=== PATIENT | female | born 1980 | race Caucasian/White ===

== ENCOUNTER 2020-01-25 17:11 | Emergency (ER) | payer OTHER, SELFPAY ==
[2020-01-25 17:18] VITALS: BP 152/89; PULSE 82; RESP 18; TEMP 36.6; O2SAT 99; BMI 38.0
[2020-01-25 17:22] VITALS: PULSE 80
--- NOTE | 2020-01-25 17:27 | ECG_ITS ---
Test Reason : CHEST PAIN Blood Pressure : / mmHG Vent. Rate : 072 BPM Atrial Rate : 072 BPM P-R Int : 158 ms QRS Dur : 082 ms QT Int : 400 ms P-R-T Axes : 019 048 046 degrees QTc Int : 438 ms Normal sinus rhythm Normal ECG When compared with ECG of 30-OCT-2019 14:06, Heart rate has decreased Referred By: Lucy Gutierrez Electronically Signed By:CAREN RODRIGUEZ MD
--- NOTE | 2020-01-25 17:27 | XR_ITS ---
EXAMINATION: PORTABLE CHEST 1 VIEW CLINICAL INFORMATION: cough . COMPARISON: 10/30/2019. TECHNIQUE: Portable frontal view of the chest was obtained. FINDINGS: The lungs are well expanded. No focal infiltrate, effusion, edema, or pneumothorax. Cardiac and mediastinal silhouettes are within normal limits for technique. No acute bony abnormality seen. IMPRESSION: No evidence of acute disease.
--- NOTE | 2020-01-25 17:35 | ED_ITS ---
HPI - General Adult General Chief complaint: Dyspnea Stated complaint: COUGH Time Seen by Provider: 01/25/20 17:18 Source: patient Mode of arrival: ambulatory Limitations: no limitations History of Present Illness HPI narrative: Patient comes to emergency room complaining of cough and chest pain that started this morning at 09:00. Patient states the chest pain started at 9, achy sensation, nonradiating, no dizziness or shortness of breath. 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 Later in the day, patient states she was choking with air and started coughing. Patient states that because of her asthma, once she starts coughing, it is a few hours to recover. Patient has not been using her albuterol neb machine or pop because she does not have any medication. States she has not followed up with her primary care physician in months. Onset (ago): hour(s) Treatments prior to arrival: none Related Data Previous Rx's Medication Instructions Recorded albuterol sulfate 1.25 mg INHALATION Q4-6H PRN #75 ml 01/25/20 albuterol sulfate 2 puff INHALATION Q6H PRN #18 g 01/25/20 Allergies Allergy/AdvReac Type Severity Reaction Status Date / Time hydrocodone [From VICODIN] Allergy Mild HIVES Verified 01/25/20 17:24 oxycodone [From PERCOCET] Allergy Mild HIVES Verified 01/25/20 17:24 azithromycin [AZITHROMYCIN] Allergy Unknown NAUSEA & Verified 01/25/20 17:24 VOMITING erythromycin base Allergy Unknown NAUSEA & Verified 01/25/20 17:24 [From ERYTHROCIN] VOMITING Review of Systems Review of Systems: Constitutional : No Weight loss, No Fever, No Chills, No Night Sweats, No Fatigue, No Malaise ENT/Mouth : No Hearing loss, No Ear Pain, No Nasal Congestion, No Sinus Pain, No Hoarseness, No sore throat, No Rhinorrhea, No Swallowing Difficulty Eyes: No Eye Pain, No Swelling, No Redness, No Foreign Body, No Discharge, No Vision Changes Cardiovascular : Achy chest pain in the middle of the chest, No Orthopnea, No Edema, No Palpitations Respiratory : Dry cough, No Wheezing, No Smoke Exposure Gastrointestinal : No Nausea, No Vomiting, No Diarrhea, No Constipation, No abdominal Pain, No Hematochezia, No Melena Genitourinary : no irregular bleeding, No Dysuria, No Urinary Frequency, No Hematuria, No Urinary Incontinence, No Urgency, No Flank Pain, No Urinary Flow Changes, No Hesitancy Musculoskeletal : No joint pain, No Myalgias, No Joint Swelling Skin : No Skin Lesions, No rash Neuro : No Weakness, No Numbness, No Paresthesias, No Loss of Consciousness, No Dizziness, No Headache Psych : No Anxiety/Panic, No Depression, No SI/HI/AH/VH, No Social Issues, Heme/Lymph: No Bruising, No Bleeding,No Lymphadenopathy Endocrine : No Polyuria, No Polydipsia, No Temperature Intolerance [facility] Past Medical History Medical History Asthma Fibromyalgia Lupus Social History Social History Alcohol intake: never Smoked in Last 30 Days: No Use of substances other than those prescribed or required for medical reasons: No Advance Directives: No Advance Directives Information Provided: No Physical Exam Vital Signs: Vital Signs: Vital Signs Temp Pulse Resp BP Pulse Ox 01/25/20 17:18 97.8 F 82 18 152/89 H 99 Body Mass Index 38.0 Appearance: Alert. Oriented X3. No acute distress. Eyes: Pupils equal, round and reactive to light. ENT: Pharynx normal. Neck: Normal inspection. Neck supple. No lymph nodes noted. No crepitus CVS: Normal heart rate and rhythm. Pulses normal. Normal S1 and S2 Respiratory: No respiratory distress. Breath sounds normal. No Wheezing. No rales , actively coughing Abdomen: Soft and nontender. No rigidity. No distention. good BS x4 Skin: Skin warm and dry. Normal skin color. Normal skin turgor. Extremities: No lower extremity edema. No lower extremity edema. No Lacerations. No Rash Neuro: Oriented X 3. No motor deficit. No sensory deficit. Moving all extermities. No slurred speech. Course Reevaluation(s) Reevaluation #1: Patient complaining of ongoing mild substernal discomfort, otherwise doing well, patient wheezing. Medical Decision Making MDM Narrative Medical decision making narrative: I discussed with the patient that she will be sent home with a prescription for albuterol since she ran out of it, chest pain likely musculoskeletal. Patient will be given 1 dose of oral potassium prior to discharge. EKG findings: Sinus rhythm, heart rate 72, QTC 438, no ST segment depressions or elevations, normal T-waves Lab Data Result diagrams: 01/25/20 17:41 01/25/20 17:41 Labs: Lab Results 01/25/20 01/25/20 01/25/20 Range/Units 17:41 17:41 17:41 WBC 8.5 (4.8-10.8) X10*3/uL RBC 4.28 (4.20-5.50) X10*6/uL Hgb 12.9 (12.0-16.0) g/dl Hct 37.9 (37-47) % MCV 88.6 (80-98) fL MCH 30.1 (27.0-33.0) pg MCHC 34.0 (31.0-35.0) g/dl RDW 13.8 (11.0-16.0) % Plt Count 274 (160-400) X10*3/uL MPV 9.8 (9.4-12.3) fL Immature Gran % (Auto) 0.2 (0.0-0.4) % Neut % (Auto) 61.7 (45-73) % Lymph % (Auto) 30.5 (20-40) % Carbon % (Auto) 4.8 (2-11) % Eos % (Auto) 2.6 (0-4) % Baso % (Auto) 0.2 (0-2) % Lymph # (Auto) 2.6 (1.2-4.9) X10*3/uL Carbon # (Auto) 0.4 (0.1-1.2) X10*3/uL Eos # (Auto) 0.2 (0.0-0.4) X10*3/uL Baso # (Auto) 0.0 (0.0-0.2) X10*3/uL Abs Immat Gran (auto) 0.02 (0.00-0.03) X10*3/uL Absolute Neuts (auto) 5.2 (2.0-8.3) X10*3/uL Absolute Nucleated RBC 0.000 (0.0-0.012) X10*3/uL Nucleated RBC % (auto) 0.0 (0.0-0.2) /100WBC Sodium 139 (135-145) mmol/L Potassium 3.2 L (3.3-5.1) mmol/l Chloride 106 (96-108) mmol/L Carbon Dioxide 25 (22-29) mmol/L Anion Gap 11 L (12-20) BUN 12 (9-16) mg/dL Creatinine 0.72 (0.5-1.4) mg/dL Estim Creat Clear Calc 117.8 Estimated GFR > 60 Random Glucose 156 H (60-115) mg/dL Calcium 8.1 L (8.4-10.2) mg/dL Troponin I High Sens < 3.5 (<3.5-17.0) ng/L Discharge Plan Discharge Clinical Impression: Atypical chest pain, Acute hypokalemia, Cough Patient Disposition: Home, Self-Care Instructions: Acute Cough (ED) Additional Instructions: Please follow-up with your primary care physician tomorrow. If you have any worsening or new symptoms, please return to the emergency room or call 911 Prescriptions: New albuterol sulfate 90 mcg/actuation HFA aerosol inhaler 2 puff inhalation Q6H PRN (Reason: shortness of breath or wheezing) Qty: 18 RF: 0 albuterol sulfate 1.25 mg/3 mL solution for nebulization 1.25 mg inhalation Q4-6H PRN (Reason: shortness of breath or wheezing) Qty: 75 RF: 0 Stand Alone Forms: Work/School Release
[2020-01-25 17:45] LABS: MANUAL DIFF FLAG NO
[2020-01-25 17:46] LABS: Basophils Percent Auto 0.2 % (0-2); Eosinophils Absolute Auto 0.2 X10*3/uL (0.0-0.4); Eosinophils Percent Auto 2.6 % (0-4); Hematocrit 37.9 % (37-47); Hemoglobin 12.9 g/dl (12.0-16.0); Imm Gran Abs Auto 0.02 X10*3/uL (0.00-0.03); Imm Gran Pct Auto 0.2 % (0.0-0.4); Lymphocytes Absolute Auto 2.6 X10*3/uL (1.2-4.9); Lymphocytes Percent Auto 30.5 % (20-40); Mean Corpuscular Hemoglobin 30.1 pg (27.0-33.0); Mean Corpuscular Volume 88.6 fL (80-98); Mean Platelet Volume 9.8 fL (9.4-12.3); Monocytes Absolute Auto 0.4 X10*3/uL (0.1-1.2); Monocytes Percent Auto 4.8 % (2-11); Neutrophils Absolute Auto 5.2 X10*3/uL (2.0-8.3); Neutrophils Percent Auto 61.7 % (45-73); Platelet Count 274 X10*3/uL (160-400); Red Blood Count 4.28 X10*6/uL (4.20-5.50); Red Cell Distribution Width 13.8 % (11.0-16.0); White Blood Count 8.5 X10*3/uL (4.8-10.8)
[2020-01-25 18:05] LABS: Anion Gap 11 (12-20); Blood Urea Nitrogen 12 mg/dL (9-16); Calcium 8.1 mg/dL (8.4-10.2); Carbon Dioxide 25 mmol/L (22-29); Chloride 106 mmol/L (96-108); Creatinine Clr Calc Pharmacy 117.8; Estimated Glomerular Filt Rate > 60; Glucose Random 156 mg/dL (60-115); Potassium 3.2 mmol/l (3.3-5.1); Sodium 139 mmol/L (135-145)
[2020-01-25 18:15] LABS: Troponin-I High Sensitivity < 3.5 ng/L (<3.5-17.0)
== END 2020-01-25 19:33 | disposition home or self-care (01) ==
PROVIDERS: Emergency Provider Emergency Medicine; PCP Nurse Practitioner Adult Health
DX: R07.89 Other chest pain (principal); E87.6 Hypokalemia; R05 Cough
CPT/HCPCS: 36415; 71045; 80048; 84484; 85025; 93005; 99283; 99284

== ENCOUNTER 2020-02-15 10:08 | Emergency (ER) | payer OTHER, SELFPAY ==
[2020-02-15 10:18] VITALS: BP 162/85; PULSE 75; RESP 18; TEMP 36.8; O2SAT 99; BMI 38.9
--- NOTE | 2020-02-15 10:26 | XR_ITS ---
EXAMINATION: XR CHEST CLINICAL INFORMATION: Cough with chest pain COMPARISON: January 25, 2020 TECHNIQUE: 2 views of the chest were obtained. FINDINGS: No significant abnormality is noted involving the heart, lungs, mediastinum, bony thorax or soft tissues. XR/XR chest 2V IMPRESSION: No acute disease.
--- NOTE | 2020-02-15 10:27 | ECG_ITS ---
Test Reason : SOB Blood Pressure : / mmHG Vent. Rate : 079 BPM Atrial Rate : 079 BPM P-R Int : 172 ms QRS Dur : 078 ms QT Int : 384 ms P-R-T Axes : 032 036 038 degrees QTc Int : 440 ms Normal sinus rhythm Normal ECG When compared with ECG of 25-JAN-2020 17:46, No significant change was found Referred By: Fatmata Lyles Electronically Signed By:CAREN RODRIGUEZ MD
--- NOTE | 2020-02-15 10:32 | ED_ITS ---
HPI - Asthma General Chief Complaint: Dyspnea Stated Complaint: asthmsa Time Seen by Provider: 02/15/20 10:22 Source: patient Mode of arrival: ambulatory History of Present Illness HPI Narrative: 39-year-old female with a past medical history of fibromyalgia, asthma, lupus presenting to the ED complaining of worsening dry cough, SOB, and substernal chest discomfort x2 days. Reports works at [employer] and has been inhaling a lot of dust, which exacerbates her asthma. Has been using inhalers at home with minimal relief. Denies fever, chills, LE edema, calf pain, recent travel, sick contacts, contact with TAZ ROCHA complaint: asthma attack and shortness of breath Related Data Previous Rx's Medication Instructions Recorded albuterol sulfate 1.25 mg INHALATION Q4-6H PRN #75 ml 01/25/20 albuterol sulfate 2 puff INHALATION Q6H PRN #18 g 01/25/20 prednisone 40 mg PO DAILY 5 Days #10 tab 02/15/20 Allergies Allergy/AdvReac Type Severity Reaction Status Date / Time hydrocodone [From VICODIN] Allergy Mild HIVES Verified 01/25/20 17:24 oxycodone [From PERCOCET] Allergy Mild HIVES Verified 01/25/20 17:24 azithromycin [AZITHROMYCIN] Allergy Unknown NAUSEA & Verified 01/25/20 17:24 VOMITING erythromycin base Allergy Unknown NAUSEA & Verified 01/25/20 17:24 [From ERYTHROCIN] VOMITING Review of Systems Review of Systems: Constitutional: No Weight loss, No Fever, No Chills ENT/Mouth: No Ear Pain, No Nasal Congestion, No sore throat, No Rhinorrhea, No Swallowing Difficulty Cardiovascular: + Chest Pain,+ SOB Respiratory: + Cough, No Sputum, No Wheezing Gastrointestinal: No Nausea, No Vomiting, No Diarrhea, No Constipation, No Abdominal pain Musculoskeletal: No joint pain, No Myalgias, No Joint Swelling Skin: No Skin Lesions, No rash Yes all other systems are reviewed and are negative [facility] Past Medical History Attestation statement: The following information was validated with the patient. Medical History (Updated 02/15/20 @ 11:41 by KAYE Otoole) Asthma Fibromyalgia Lupus Surgical History (Updated 02/15/20 @ 10:20 by Indira Woodward) H/O: hysterectomy Social History Social History Alcohol intake: never Smoking Status: Current every day smoker Use of substances other than those prescribed or required for medical reasons: No Advance Directives: No Advance Directives Information Provided: No Physical Exam Vital Signs: Vital Signs: Last Vital Signs Temp 98.1 F 02/15/20 11:31 Pulse 82 02/15/20 11:31 Resp 18 02/15/20 11:31 BP 146/79 H 02/15/20 11:31 Pulse Ox 99 02/15/20 10:18 Body Mass Index 38.9 Const: General: cooperative and healthy appearing Orientation/consciousness: patient oriented x3 Limitations: no limitations HENMT: Head: Yes normal to inspection Ears: hearing grossly normal bilaterally General nose exam: Normal external nose present Face and sinus: Yes normal facial exam Eyes: General: appearance normal, both eyes and all related structures EOM: EOMs intact bilaterally Neck: Neck: Yes normal visual inspection and Yes no meningeal signs Resp: Effort & Inspection: normal respiratory effort Auscultation: no rales, no rhonchi, no wheezes and diminished lung sounds (Bibasilar) Cardio: Rate: regular rate Heart sounds: S1 normal heart sound present and S2 normal heart sound present GI: Inspection: Yes normal to inspection Palpation (GI): Soft to palpation Skin: Rashes: no rashes Wounds: no wounds Neuro: General: patient oriented x3 and no meningeal signs Gait exam (Neuro): Normal gait present Extrem: Other: No LE edema or calf tenderness General: Yes normal to inspection Course Course Course Narrative: -1140--on re-evaluation patient with better air movement after DuoNeb. Additional DuoNeb and IV Solu-Medrol ordered -labs at patient's baseline, glucose 225, no AG, Mag 1.5 Patient with lungs CTA, satting 99-100% on room air, no respiratory distress, plan to D/C with PCP follow-up MDM - Asthma MDM Narrative Medical decision making narrative: 39-year-old female with a past medical history of fibromyalgia, asthma, lupus presenting to the ED complaining of worsening dry cough, SOB, and substernal chest discomfort x2 days. On exam VSS, NAD/well-appearing, lungs with diminished sounds bibasilarly, no LE edema or calf tenderness. Concern for asthma exacerbation vs pneumonia vs bronchitis or viral syndrome/COVID-19. Lower concern for ACS/PE Patient would not like to be swabbed for COVID-19 Plan: EKG, labs, CXR, DuoNeb, reassess Lab Data Result diagrams: 02/15/20 12:04 02/15/20 12:03 Labs: Lab Results 02/15/20 02/15/20 02/15/20 Range/Units 12:03 12:03 12:03 WBC (4.8-10.8) X10*3/uL RBC (4.20-5.50) X10*6/uL Hgb (12.0-16.0) g/dl Hct (37-47) % MCV (80-98) fL MCH (27.0-33.0) pg MCHC (31.0-35.0) g/dl RDW (11.0-16.0) % Plt Count (160-400) X10*3/uL MPV (9.4-12.3) fL Immature Gran % (Auto) (0.0-0.4) % Neut % (Auto) (45-73) % Lymph % (Auto) (20-40) % Marin % (Auto) (2-11) % Eos % (Auto) (0-4) % Baso % (Auto) (0-2) % Lymph # (Auto) (1.2-4.9) X10*3/uL Marin # (Auto) (0.1-1.2) X10*3/uL Eos # (Auto) (0.0-0.4) X10*3/uL Baso # (Auto) (0.0-0.2) X10*3/uL Abs Immat Gran (auto) (0.00-0.03) X10*3/uL Absolute Neuts (auto) (2.0-8.3) X10*3/uL Absolute Nucleated RBC (0.0-0.012) X10*3/uL Nucleated RBC % (auto) (0.0-0.2) /100WBC Hold Blue Top SEE NOTE Sodium 137 (135-145) mmol/L Potassium 3.7 (3.3-5.1) mmol/l Chloride 106 (96-108) mmol/L Carbon Dioxide 27 (22-29) mmol/L Anion Gap 8 L (12-20) BUN 8 L (9-16) mg/dL Creatinine 0.69 (0.5-1.4) mg/dL Estim Creat Clear Calc 124.5 Estimated GFR > 60 Random Glucose 225 H D (60-115) mg/dL Calcium 7.9 L (8.4-10.2) mg/dL Magnesium (1.6-2.6) mg/dL Total Bilirubin < 0.2 (0.0-1.0) mg/dL Direct Bilirubin < 0.2 (0.0-0.5) mg/dL AST 26 (5-31) U/L ALT 36 H (0-31) U/L Alkaline Phosphatase 122 H (39-117) U/L Troponin I High Sens < 3.5 (<3.5-17.0) ng/L Total Protein 5.9 L (6.5-8.0) g/dL Albumin 3.2 L (3.5-5.0) g/dL 02/15/20 02/15/20 Range/Units 12:03 12:04 WBC 9.6 (4.8-10.8) X10*3/uL RBC 4.27 (4.20-5.50) X10*6/uL Hgb 12.9 (12.0-16.0) g/dl Hct 38.3 (37-47) % MCV 89.7 (80-98) fL MCH 30.2 (27.0-33.0) pg MCHC 33.7 (31.0-35.0) g/dl RDW 13.7 (11.0-16.0) % Plt Count 243 (160-400) X10*3/uL MPV 9.7 (9.4-12.3) fL Immature Gran % (Auto) 0.4 (0.0-0.4) % Neut % (Auto) 66.2 (45-73) % Lymph % (Auto) 26.2 (20-40) % Marin % (Auto) 4.9 (2-11) % Eos % (Auto) 2.2 (0-4) % Baso % (Auto) 0.1 (0-2) % Lymph # (Auto) 2.5 (1.2-4.9) X10*3/uL Marin # (Auto) 0.5 (0.1-1.2) X10*3/uL Eos # (Auto) 0.2 (0.0-0.4) X10*3/uL Baso # (Auto) 0.0 (0.0-0.2) X10*3/uL Abs Immat Gran (auto) 0.04 H (0.00-0.03) X10*3/uL Absolute Neuts (auto) 6.4 (2.0-8.3) X10*3/uL Absolute Nucleated RBC 0.000 (0.0-0.012) X10*3/uL Nucleated RBC % (auto) 0.0 (0.0-0.2) /100WBC Hold Blue Top Sodium (135-145) mmol/L Potassium (3.3-5.1) mmol/l Chloride (96-108) mmol/L Carbon Dioxide (22-29) mmol/L Anion Gap (12-20) BUN (9-16) mg/dL Creatinine (0.5-1.4) mg/dL Estim Creat Clear Calc Estimated GFR Random Glucose (60-115) mg/dL Calcium (8.4-10.2) mg/dL Magnesium 1.5 L (1.6-2.6) mg/dL Total Bilirubin (0.0-1.0) mg/dL Direct Bilirubin (0.0-0.5) mg/dL AST (5-31) U/L ALT (0-31) U/L Alkaline Phosphatase (39-117) U/L Troponin I High Sens (<3.5-17.0) ng/L Total Protein (6.5-8.0) g/dL Albumin (3.5-5.0) g/dL ECG Data Attestation: I personally reviewed and interpreted this ECG as follows: ECG interpretation date: 02/15/20 Interpretation: Normal sinus rhythm. Rate of 79. No ischemic changes Discharge Plan Discharge Clinical Impression: Asthma with exacerbation Patient Disposition: Home, Self-Care Instructions: Asthma (ED) Additional Instructions: Your blood work and chest x-ray were reassuring today in ED Make sure you are using your inhalers at home, and nebulizer machine In additions are taking prednisone as prescribed If her symptoms persist or worsen, you have fever, persistent cough, worsening SOB or chest pain return to the ED Follow-up with her doctor Prescriptions: New prednisone 20 mg tablet 40 mg PO DAILY 5 Days Qty: 10 RF: 0 No Action albuterol sulfate 90 mcg/actuation HFA aerosol inhaler 2 puff inhalation Q6H PRN (Reason: shortness of breath or wheezing) Qty: 18 RF: 0 albuterol sulfate 1.25 mg/3 mL solution for nebulization 1.25 mg inhalation Q4-6H PRN (Reason: shortness of breath or wheezing) Qty: 75 RF: 0 Referrals: Thu Gallardo, D[employer] PAINTER [Primary Care Provider] - 2 days
[2020-02-15] MEDS: Albuterol/Iprat 2.5/0.5MG 3 ML AMPUL.NEB INHALE ×2 (10:53→12:52)
[2020-02-15 11:31] VITALS: BP 146/79; PULSE 82; RESP 18; TEMP 36.7
[2020-02-15] MEDS: methylPREDNISolone Sod Succ/PF 125 MG/2 ML VIAL IVPUSH (12:07)
[2020-02-15 12:09] LABS: MANUAL DIFF FLAG NO
[2020-02-15 12:10] LABS: Basophils Percent Auto 0.1 % (0-2); Eosinophils Absolute Auto 0.2 X10*3/uL (0.0-0.4); Eosinophils Percent Auto 2.2 % (0-4); Hematocrit 38.3 % (37-47); Hemoglobin 12.9 g/dl (12.0-16.0); Imm Gran Abs Auto 0.04 X10*3/uL (0.00-0.03); Imm Gran Pct Auto 0.4 % (0.0-0.4); Lymphocytes Absolute Auto 2.5 X10*3/uL (1.2-4.9); Lymphocytes Percent Auto 26.2 % (20-40); Mean Corpuscular HGB Conc 33.7 g/dl (31.0-35.0); Mean Corpuscular Hemoglobin 30.2 pg (27.0-33.0); Mean Corpuscular Volume 89.7 fL (80-98); Mean Platelet Volume 9.7 fL (9.4-12.3); Monocytes Absolute Auto 0.5 X10*3/uL (0.1-1.2); Monocytes Percent Auto 4.9 % (2-11); Neutrophils Absolute Auto 6.4 X10*3/uL (2.0-8.3); Neutrophils Percent Auto 66.2 % (45-73); Platelet Count 243 X10*3/uL (160-400); Red Blood Count 4.27 X10*6/uL (4.20-5.50); Red Cell Distribution Width 13.7 % (11.0-16.0); White Blood Count 9.6 X10*3/uL (4.8-10.8)
[2020-02-15 12:33] LABS: Magnesium 1.5 mg/dL (1.6-2.6)
[2020-02-15 12:38] LABS: Troponin-I High Sensitivity < 3.5 ng/L (<3.5-17.0)
[2020-02-15 12:42] LABS: Alanine Aminotransferase 36 U/L (0-31); Albumin Level 3.2 g/dL (3.5-5.0); Alkaline Phosphatase 122 U/L (39-117); Anion Gap 8 (12-20); Aspartate Amino Transferase 26 U/L (5-31); Bilirubin Direct < 0.2 mg/dL (0.0-0.5); Bilirubin Total < 0.2 mg/dL (0.0-1.0); Blood Urea Nitrogen 8 mg/dL (9-16); Calcium 7.9 mg/dL (8.4-10.2); Carbon Dioxide 27 mmol/L (22-29); Chloride 106 mmol/L (96-108); Creatinine Clr Calc Pharmacy 124.5; Estimated Glomerular Filt Rate > 60; Glucose Random 225 mg/dL (60-115); Potassium 3.7 mmol/l (3.3-5.1); Sodium 137 mmol/L (135-145); Total Protein 5.9 g/dL (6.5-8.0)
--- NOTE | 2020-02-15 12:42 | PC.NURSE ---
respiratory was called for updraft
== END 2020-02-15 13:34 | disposition home or self-care (01) ==
PROVIDERS: Physician Assistant; Emergency Provider Emergency Medicine; PCP Nurse Practitioner Adult Health
DX: J45.901 Unspecified asthma with (acute) exacerbation (principal); R06.00 Dyspnea, unspecified; M79.10 Myalgia, unspecified site; R05 Cough; Z79.899 Other long term (current) drug therapy
CPT/HCPCS: 36415; 71046; 80048; 80076; 83735; 84484; 85025; 93005; 94640; 96374; 99284; 99285; J2930

== ENCOUNTER 2020-03-10 04:32 | Emergency (ER) | payer OTHER, SELFPAY ==
[2020-03-10 04:34] VITALS: BP 194/102; PULSE 101; RESP 22; TEMP 36.2; O2SAT 98; BMI 38.9
[2020-03-10 04:40] VITALS: BP 153/89
[2020-03-10 05:01] VITALS: BP 139/88; PULSE 87; RESP 18; O2SAT 100
--- NOTE | 2020-03-10 05:46 | XR_ITS ---
EXAMINATION: XR CHEST CLINICAL INFORMATION: Cough COMPARISON: 02/15/2020 TECHNIQUE: 2 views of the chest were obtained. FINDINGS: The lungs are clear with no focal consolidation. No evidence of pneumothorax, pulmonary edema, or pleural effusions. The cardiomediastinal silhouette is unremarkable. No acute osseous findings. XR/XR chest 2V IMPRESSION: No acute cardiopulmonary findings.
--- NOTE | 2020-03-10 05:47 | ED.ASTHMA ---
HPI - Asthma General Chief Complaint: Asthma Stated Complaint: asthma Time Seen by Provider: 03/10/20 05:46 Source: patient Mode of arrival: ambulatory Limitations: no limitations History of Present Illness HPI Narrative: This is a 39-year-old female with history of asthma and states that she was working at her job yesterday and was exposed to quite a bit dust which then she states resulted in her having worsening shortness of breath overnight with limited relief of after using her inhaler. Otherwise, she denies fevers, chills, GI symptoms, chest pain / palpitations. Related Data Previous Rx's Medication Instructions Recorded albuterol sulfate 1.25 mg INHALATION Q4-6H PRN #75 ml 01/25/20 albuterol sulfate 2 puff INHALATION Q6H PRN #18 g 01/25/20 prednisone 40 mg PO DAILY 5 Days #10 tab 02/15/20 prednisone 40 mg PO DAILY 4 Days #8 tab 03/10/20 Allergies Allergy/AdvReac Type Severity Reaction Status Date / Time hydrocodone [From VICODIN] Allergy Mild HIVES Verified 01/25/20 17:24 oxycodone [From PERCOCET] Allergy Mild HIVES Verified 01/25/20 17:24 azithromycin [AZITHROMYCIN] Allergy Unknown NAUSEA & Verified 01/25/20 17:24 VOMITING erythromycin base Allergy Unknown NAUSEA & Verified 01/25/20 17:24 [From ERYTHROCIN] VOMITING Review of Systems Review of Systems: Pertinent positives and negatives as stated in HPI 10 point review systems otherwise negative. PMFSH Past Medical History Source: nursing notes reviewed Medical History Asthma Fibromyalgia HTN (hypertension) Lupus Surgical History H/O: hysterectomy Social History Social History Alcohol intake: never Smoking Status: Current every day smoker Smoked in Last 30 Days: Yes Use of substances other than those prescribed or required for medical reasons: Yes Substance Use Type: Marijuana Advance Directives: No Advance Directives Information Provided: No Physical Exam Vital Signs: Vital Signs: Last Vital Signs Temp 97.2 F 03/10/20 04:34 Pulse 79 03/10/20 06:15 Resp 18 03/10/20 05:01 BP 139/88 03/10/20 05:01 Pulse Ox 100 03/10/20 05:01 Body Mass Index 38.9 VITAL SIGNS: Reviewed. GENERAL: Well developed, well nourished, in no acute distress. HEAD: Normocephalic/atraumatic, EYES: PERRLA, EOMI intact without pain, no nystagmus/pallor/icterus noted EARS: Ext canals without abnormality, TMs non-bulging and non-erythematous NOSE: Nares patent bilateral OROPHARYNX: no oral lesions noted, posterior pharynx clear and non-erythematous without noted tonsillar enlargement/erythema/exudates NECK: Supple, no adenopathy LUNGS: Very mild wheeze on expiration bilaterally, and no accessory muscle use. SpO2<100> CARDIOVASCULAR: Regular rate and rhythm without noted murmurs, no JVD or lower extremity edema. ABDOMEN: Soft, non-tender, non-distended with bowel sounds. No rigidity. No guarding. No palpable masses or hernias noted MUSCULOSKELETAL: No tenderness, deformities, or effusions noted on gross inspection. EXTREMITIES: No cyanosis, clubbing or edema. SKIN: Inspection of the skin reveals no rashes, ulcerations, jaundice, pallor, or petechiae. NEUROLOGIC: Alert and oriented x 4. Strength and sensation to light touch were grossly intact x 4. Course Course Course Narrative: This is a 39-year-old female with history and clinical presentation consistent with likely mild asthma exacerbation and review of chest x-ray is without acute findings and patient has had good symptom control with receiving a nebulized treatment as well as oral prednisone. All results and findings were discussed with her bedside and she will be discharged home with a short course of steroids and instructions to continue using her rescue inhaler. In addition, recommended patient should use a particulate mask at her work. Discharge Plan Discharge Clinical Impression: Asthma with acute exacerbation Qualifiers: Asthma severity: mild Asthma persistence: unspecified Qualified Code(s): J45.901 - Unspecified asthma with (acute) exacerbation Patient Disposition: Home, Self-Care Instructions: Asthma (ED) Additional Instructions: The patient and/or family acknowledge understanding of results (as applicable), diagnosis, treatment plan, need for follow up, and symptoms that should prompt a return to the emergency room. Prescriptions: New prednisone 20 mg tablet 40 mg PO DAILY 4 Days Qty: 8 RF: 0 No Action albuterol sulfate 90 mcg/actuation HFA aerosol inhaler 2 puff inhalation Q6H PRN (Reason: shortness of breath or wheezing) Qty: 18 RF: 0 albuterol sulfate 1.25 mg/3 mL solution for nebulization 1.25 mg inhalation Q4-6H PRN (Reason: shortness of breath or wheezing) Qty: 75 RF: 0 prednisone 20 mg tablet 40 mg PO DAILY 5 Days Qty: 10 RF: 0
[2020-03-10] MEDS: predniSONE 20 MG TABLET 40 MG PO (06:02)
[2020-03-10] MEDS: Albuterol Sulfate (0.083%) 2.5 MG/3 ML VIAL.NEB INHALE (06:04)
[2020-03-10 06:15] VITALS: PULSE 79; O2SAT 100
--- NOTE | 2020-03-10 07:03 | PC.NURSE ---
nad, states she's ready to go home and feels much better
--- NOTE | 2020-03-10 07:38 | PC.NURSE ---
hr 88, spo2 98 ra
== END 2020-03-10 07:37 | disposition home or self-care (01) ==
PROVIDERS: Emergency Provider Student in an Organized Health Care Education/Training Program; PCP Nurse Practitioner Adult Health
DX: J45.901 Unspecified asthma with (acute) exacerbation (principal); I10 Essential (primary) hypertension; F17.200 Nicotine dependence, unspecified, uncomplicated; Z79.899 Other long term (current) drug therapy
CPT/HCPCS: 71046; 94640; 99284

== ENCOUNTER 2020-05-19 15:02 | Emergency (ER) | payer OTHER, SELFPAY ==
[2020-05-19 15:47] VITALS: BP 160/93; PULSE 86; RESP 18; TEMP 36.9; O2SAT 99; BMI 38.6
--- NOTE | 2020-05-19 16:38 | ED.GENADULT ---
HPI - General Adult General Chief complaint: Upper Respiratory Symptoms Stated complaint: covid symptoms Time Seen by Provider: 05/19/20 15:51 Source: patient Mode of arrival: ambulatory Limitations: no limitations History of Present Illness HPI narrative: 39-year-old female who presents the emergency department for evaluation cough, shortness of breath and fatigue. The patient states she has been sick for 3 days. She states that she has a cough which is occasionally productive. She states the cough is gotten progressively worse. She has felt hot and cold at home but did not take her temperature. She states that she is having right-sided sharp chest pain which is worse with coughing and breathing. She feels short of breath but denies dyspnea on exertion. She has had several episodes of loose diarrheal stool x2 days. She states that she has had a change in her perception of taste but not smell. The patient does have a history asthma and states that she has had to use her inhaler more frequently over the past 2-3 days. 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 Related Data Previous Rx's Medication Instructions Recorded albuterol sulfate 1.25 mg INHALATION Q4-6H PRN #75 ml 01/25/20 albuterol sulfate 2 puff INHALATION Q6H PRN #18 g 01/25/20 prednisone 40 mg PO DAILY 5 Days #10 tab 02/15/20 prednisone 40 mg PO DAILY 4 Days #8 tab 03/10/20 doxycycline hyclate 100 mg PO Q12H 10 Days #20 tab 05/19/20 prednisone 60 mg PO DAILY 5 Days #15 tab 05/19/20 Allergies Allergy/AdvReac Type Severity Reaction Status Date / Time hydrocodone [From VICODIN] Allergy Mild HIVES Verified 01/25/20 17:24 oxycodone [From PERCOCET] Allergy Mild HIVES Verified 01/25/20 17:24 azithromycin [AZITHROMYCIN] Allergy Unknown NAUSEA & Verified 01/25/20 17:24 VOMITING erythromycin base Allergy Unknown NAUSEA & Verified 01/25/20 17:24 [From ERYTHROCIN] VOMITING Review of Systems Review of Systems: Yes all other systems are reviewed and are negative Neurologic: Reports Abnormal speech present REPLACED BY [facility] Past Medical History REPLACED BY [facility] Narrative: Past medical history consistent with asthma, fibromyalgia, lupus, sleep apnea, migraines, PTSD, anxiety, depression, bipolar disorder. The patient states that she works at [employer]. She does smoke cigarettes, she rarely drinks alcohol, she denies drug use. Medical History Asthma Fibromyalgia HTN (hypertension) Lupus Surgical History H/O: hysterectomy Social History Social History Alcohol intake: never Smoking Status: Current every day smoker Substance Use Type: Marijuana Advance Directives: No Advance Directives Information Provided: No Physical Exam Vital Signs: Vital Signs: Last Vital Signs Temp 98.5 F 05/19/20 15:47 Pulse 86 05/19/20 15:47 Resp 18 05/19/20 15:47 BP 160/93 H 05/19/20 15:47 Pulse Ox 99 05/19/20 15:47 Body Mass Index 38.6 Const: General: cooperative and healthy appearing Orientation/consciousness: oriented to person and oriented to place Limitations: no limitations HENMT: Head: Yes normal to inspection, Yes normocephalic and Yes atraumatic Ears: external ears normal General nose exam: Normal external nose present Face and sinus: Yes normal facial exam Mouth: Normal oral and palatal mucosa present Throat: Yes posterior oropharynx normal Eyes: Periorbital: periorbital findings normal Eyelids: Yes eyelids normal Conjunctivae: conjunctivae normal Sclerae: sclerae normal Corneas: corneas normal Pupils: Equal, round and reactive pupils present Direct Ophthalmoscopy: normal light reflex Neck: Neck: Yes full ROM, Yes no lymphadenopathy, Yes no meningeal signs, Yes trachea midline and Yes supple Chest: Chest palpation & inspection: normal inspection of the chest and normal palpation of entire chest wall Resp: Effort & Inspection: normal respiratory effort and able to speak in complete sentences Auscultation: clear to auscultation bilaterally Cardio: Rate: regular rate Rhythm: regular rhythm Heart sounds: S1 normal heart sound present, S2 normal heart sound present and no murmurs GI: Inspection: Yes normal to inspection Palpation (GI): Soft to palpation, nontender, no guarding, not rigid and No hepatosplenomegaly present : General: Yes no CVA tenderness Back/Spine/Pelvis: Back: no CVA tenderness Cervical Spine: normal cervical lordosis Thoracic/Lumbar Spine: thoracic and lumbar spine normal to inspection Skin: Lesions: no lesions Rashes: no rashes Wounds: no wounds Neuro: General: oriented to person, oriented to place and no meningeal signs Cranial nerves: Yes CN's II-XII intact bilaterally and Yes Equal, round and reactive pupils present Cognition (Neuro): normal cognition Speech: Abnormal speech present Motor exam (neuro): 5/5 motor strength present throughout Extrem: General: Yes normal to inspection and Yes full ROM Psych: Appearance: well kempt Mental Status: mental status grossly normal Speech and movement: Normal speech and movement present Affect: normal affect Attitude: cooperative Thought process: Normal thought process present Thought content: Normal thought content present Course Course Course Narrative: 39-year-old female with a history of asthma, cigarette use, multiple other medical conditions who presents the emergency department for evaluation of viral-like illness x3 days with cough, shortness of breath, pleuritic chest pain, diarrhea, subjective fever and change in her sense of taste. Patient's physical examination did reveal slightly elevated blood pressure 160/93 but a normal respiratory rate pulse and O2 saturation of 99% on room air. Lung exam is clear. The patient is at increased risk for bacterial URI verses COVID URI. I did order a rapid COVID test on the patient. 1728: The patient's rapid COVID test was negative. The patient's presentation is consistent with acute bronchitis, given her asthma and smoking history, I believe that she will benefit from an antibiotic. She started on doxycycline 100 mg twice a day for 10 days and given her 1st dose here in the emergency department. She was also started on prednisone 60 mg once a day for 5 days and given her 1st dose here in the emergency department. The patient states that she needs a refill of her albuterol inhaler and this will be prescribed for her as well. She was given verbal and printed instructions and discharged home. Medical Decision Making Lab Data Labs: Lab Results 05/19/20 Range/Units 16:29 COVID-19 ([facility]) Negative (Negative) COVID-19 Clin Com See Note Discharge Plan Discharge Clinical Impression: Acute bronchitis, Acute asthma exacerbation Patient Disposition: Home, Self-Care Instructions: Acute Bronchitis (ED) Additional Instructions: Your COVID-19 test was negative. Your presentation is consistent with bronchitis which is causing her asthma to flare up. You were treated with doxycycline 100 mg orally and prednisone 60 mg orally in the emergency department. Take doxycycline 100 mg twice a day for 10 days. This is a strong antibiotic and should treat bacterial bronchitis and bacterial pneumonia. Take prednisone 60 mg once a day for 4 more days. Do not take other anti-inflammatory medications such as ibuprofen, Motrin, Advil, Aleve, naproxen while you are taking prednisone. Take Tylenol (acetaminophen) 500 mg pills, 2 pills every 4 to 6 hours as needed for pain or fever. Follow-up with your doctor in 2 days. Please return to the emergency department if your symptoms get worse or if you develop any symptoms that are concerning to you. Prescriptions: New prednisone 20 mg tablet 60 mg PO DAILY 5 Days Qty: 15 RF: 0 doxycycline hyclate 100 mg tablet 100 mg PO Q12H 10 Days Qty: 20 RF: 0 No Action prednisone 20 mg tablet 40 mg PO DAILY 4 Days Qty: 8 RF: 0 albuterol sulfate 90 mcg/actuation HFA aerosol inhaler 2 puff inhalation Q6H PRN (Reason: shortness of breath or wheezing) Qty: 18 RF: 0 albuterol sulfate 1.25 mg/3 mL solution for nebulization 1.25 mg inhalation Q4-6H PRN (Reason: shortness of breath or wheezing) Qty: 75 RF: 0 prednisone 20 mg tablet 40 mg PO DAILY 5 Days Qty: 10 RF: 0
[2020-05-19 17:04] LABS: COVID-19 Test Negative (Negative); IDNOW Serial# 9DD0AD1C
[2020-05-19] MEDS: predniSONE 20 MG TABLET 60 MG PO (17:35)
== END 2020-05-19 17:41 | disposition home or self-care (01) ==
PROVIDERS: Emergency Provider Emergency Medicine Emergency Medical Services; PCP Nurse Practitioner Adult Health
DX: R05 Cough (principal); J45.901 Unspecified asthma with (acute) exacerbation; R06.02 Shortness of breath; J20.8 Acute bronchitis due to other specified organisms; Z20.822 Contact with and (suspected) exposure to COVID-19; Z79.899 Other long term (current) drug therapy
CPT/HCPCS: 36415; 87635; 99283

== ENCOUNTER 2020-07-20 10:26 | Emergency (ER) | payer OTHER, SELFPAY ==
--- NOTE | ~2020-07-20 | XR_ITS ---
EXAMINATION: XR CHEST CLINICAL INFORMATION: Dyspnea COMPARISON: Chest radiographs 03/10/2020, 02/15/2020 TECHNIQUE: Portable upright AP view of the chest was obtained. FINDINGS: The lungs are clear. The vascularity is normal. There is no airspace consolidation or effusion. The heart is normal in size. The hilar and mediastinal contours are unremarkable. There is minor calcific tendinosis again seen adjacent to right humeral head. No acute bony abnormality. XR/XR chest 1V IMPRESSION: Lungs clear.
[2020-07-20 10:42] VITALS: BP 180/92; PULSE 90; RESP 18; TEMP 36.8; O2SAT 96; BMI 38.0
[2020-07-20 11:05] LABS: Glucose Urine UA 250 MG/DL (NEG); Leukocyte Esterase Urine NEG (NEG); Nitrite Urine NEG (NEG); PH 6.5 (5.0-8.0); Specific Gravity - Urine 1.025 (1.005-1.025); Urine Blood NEG (NEG); Urine Ketones NEG (NEG); Urine Protein 1+ MG/DL (NEG-TRACE)
[2020-07-20 11:09] LABS: UPreg QC Valid YES; Urine Pregnancy NEGATIVE (NEGATIVE)
[2020-07-20 11:10] LABS: Appearance Urine CLEAR; Color Urine YELLOW
[2020-07-20 11:22] LABS: RBC Urine 0 /HPF (0); Squamous Epithelial Cell Urine 1+ /LPF; WBC Urine 0-2 /HPF (0-4)
[2020-07-20 12:00] VITALS: BP 138/94; PULSE 108; RESP 24; TEMP 37.4; O2SAT 96
[2020-07-20] MEDS: methylPREDNISolone Sod Succ 125 MG/2 ML VIAL IVPUSH (12:20)
[2020-07-20] MEDS: 0.9 % Sodium Chloride 1,000 ML 999 ML IVCONT (12:21)
[2020-07-20 12:22] LABS: MANUAL DIFF FLAG NO
[2020-07-20 12:24] LABS: Basophils Percent Auto 0.3 % (0-2); Eosinophils Absolute Auto 0.2 X10*3/uL (0.0-0.4); Eosinophils Percent Auto 2.4 % (0-4); Hematocrit 41.6 % (37-47); Hemoglobin 14.1 g/dl (12.0-16.0); Imm Gran Abs Auto 0.04 X10*3/uL (0.00-0.03); Imm Gran Pct Auto 0.4 % (0.0-0.4); Lymphocytes Absolute Auto 2.3 X10*3/uL (1.2-4.9); Lymphocytes Percent Auto 23.2 % (20-40); Mean Corpuscular HGB Conc 33.9 g/dl (31.0-35.0); Mean Corpuscular Hemoglobin 30.3 pg (27.0-33.0); Mean Corpuscular Volume 89.3 fL (80-98); Mean Platelet Volume 9.6 fL (9.4-12.3); Monocytes Absolute Auto 0.6 X10*3/uL (0.1-1.2); Monocytes Percent Auto 5.7 % (2-11); Neutrophils Absolute Auto 6.8 X10*3/uL (2.0-8.3); Platelet Count 261 X10*3/uL (160-400); Red Blood Count 4.66 X10*6/uL (4.20-5.50); Red Cell Distribution Width 13.9 % (11.0-16.0)
[2020-07-20 12:31] LABS: INTERNATIONAL NORM RATIO 1.1 (0.9-1.1); Prothrombin Time 12.5 SEC (10.8-13.0)
[2020-07-20 12:36] LABS: D Dimer < 200 NG/ML
[2020-07-20 12:47] LABS: Lactic Acid 1.5 mmol/L (0.5-2.0)
[2020-07-20 12:54] LABS: Alanine Aminotransferase 41 U/L (0-31); Albumin Level 3.4 g/dL (3.5-5.0); Alkaline Phosphatase 126 U/L (39-117); Aspartate Amino Transferase 32 U/L (5-31); Bilirubin Direct < 0.2 mg/dL (0.0-0.5); Bilirubin Total 0.3 mg/dL (0.0-1.0); Magnesium 1.8 mg/dL (1.6-2.6); Total Protein 5.9 g/dL (6.5-8.0)
[2020-07-20 12:58] LABS: Alanine Aminotransferase 41 U/L (0-31); Albumin Level 3.4 g/dL (3.5-5.0); Alkaline Phosphatase 124 U/L (39-117); Anion Gap 12 (12-20); Aspartate Amino Transferase 34 U/L (5-31); B Type Natriuretic Peptide < 10 pg/mL (<100); Bilirubin Total 0.3 mg/dL (0.0-1.0); Blood Urea Nitrogen 13 mg/dL (9-16); C Reactive Protein 3.52 mg/dL (< or = 0.50); Calcium 8.8 mg/dL (8.4-10.2); Carbon Dioxide 25 mmol/L (22-29); Chloride 104 mmol/L (96-108); Creatinine Clr Calc Pharmacy 119.4; Estimated Glomerular Filt Rate > 60; Glucose Random 256 mg/dL (60-115); Lactate Dehydrogenase 220 U/L (122-220); Potassium 3.8 mmol/L (3.3-5.1); Sodium 137 mmol/L (135-145); Total Protein 5.9 g/dL (6.5-8.0); Troponin-I High Sensitivity < 3.5 ng/L (<3.5-17.0)
[2020-07-20 13:11] LABS: Ferritin 91 ng/mL (10-122); HCG Quantitative < 2 mIU/mL
[2020-07-20 13:18] LABS: Procalcitonin 0.06 ng/mL
--- NOTE | 2020-07-20 13:41 | ED_ITS ---
HPI - Asthma General Chief Complaint: Dyspnea Stated Complaint: ?pneumonia Time Seen by Provider: 07/20/20 11:20 Source: patient and EMS Mode of arrival: EMS Limitations: no limitations History of Present Illness HPI Narrative: 39-year-old female with a past medical history of asthma, lung disease, sleep apnea, lupus, hypertension, vertigo, anxiety reaction, bipolar 1 disorder, PTSD, depression, chronic constipation, nephrolithiasis and fibromyalgia presenting to the ED with complaints of a dry cough with shortness of breath, dyspnea on exertion and chest tightness/discomfort over the past few days worse today. Reports it feels the same when she had a pneumonia infection. She has been using her albuterol inhaler without any symptomatic relief. Reports she does not have a nebulizer machine. She reports she was seen here on 05/19/2020 and diagnosed with bronchitis and given doxycycline and steroids and t gracyy provided symptomatic relief at that time. She denies recent travel or sick contacts. Denies any fevers, chills, dizziness, lightheadedness, change in vision, nausea/vomiting, neck pain/stiffness, palpitations, back pain, abdominal pain, diarrhea, black or bloody stools, hematuria, dysuria or any other symptoms complaints or concerns at this time. MD complaint: asthma attack , shortness of breath and wheezing Onset (ago): day(s) Severity: moderate and worse than usual Context: none known Associated symptoms: dry cough and chest pain Asthma History: history of frequent attacks and history of prior ED visit Treatments Prior to Arrival: inhaled bronchodilator Related Data Current Asthma Therapy: inhaled bronchodilator Previous Rx's Medication Instructions Recorded albuterol sulfate 1.25 mg INHALATION Q4-6H PRN #75 ml 01/25/20 albuterol sulfate 2 puff INHALATION Q6H PRN #18 g 01/25/20 prednisone 40 mg PO DAILY 5 Days #10 tab 02/15/20 prednisone 40 mg PO DAILY 4 Days #8 tab 03/10/20 doxycycline hyclate 100 mg PO Q12H 10 Days #20 tab 05/19/20 prednisone 60 mg PO DAILY 5 Days #15 tab 05/19/20 acetaminophen [Tylenol Extra 1,000 mg PO QID PRN #14 tab 07/20/20 Strength] albuterol sulfate 0.63 mg INHALATION QID PRN #75 ml 07/20/20 albuterol sulfate 1 inh INHALATION QID PRN #8.5 g 07/20/20 blood sugar diagnostic [FreeStyle #100 ea 07/20/20 Lite Strips] blood-glucose meter [FreeStyle #1 ea 07/20/20 Baker Lite] doxycycline monohydrate 100 mg PO BID 10 Days #20 cap 07/20/20 ibuprofen 800 mg PO Q8H PRN #14 tab 07/20/20 lancets [FreeStyle Lancets] #100 ea 07/20/20 metformin 500 mg PO BID 30 Days #60 tab 07/20/20 prednisone 40 mg PO DAILY 5 Days #10 tab 07/20/20 Allergies Allergy/AdvReac Type Severity Reaction Status Date / Time hydrocodone [From VICODIN] Allergy Mild HIVES Verified 01/25/20 17:24 oxycodone [From PERCOCET] Allergy Mild HIVES Verified 01/25/20 17:24 azithromycin [AZITHROMYCIN] Allergy Unknown NAUSEA & Verified 01/25/20 17:24 VOMITING erythromycin base Allergy Unknown NAUSEA & Verified 01/25/20 17:24 [From ERYTHROCIN] VOMITING Review of Systems Review of Systems: Constitutional : denies med noncompliance, no history of PE or DVT, denies recent travel, No Fever, No Chills ENT/Mouth : No Hoarseness, No sore throat, No Rhinorrhea Eyes: No Redness, No Discharge, No Vision Changes Cardiovascular : + Chest tightness/Pain, + SOB, + Dyspnea on Exertion, No Edema, no pleurisy, Respiratory : + Cough, No Sputum, no stridor, no hemoptysis, Gastrointestinal : No Nausea, No Vomiting, No Diarrhea, No abdominal Pain Genitourinary : No Dysuria, No Hematuria Musculoskeletal : No joint pain, No Myalgias Extremities: no extremity swelling /pain Skin : No rash, no itching, no swelling Neuro : No Weakness, No Numbness, No Headache Psych : No anxiety, depression Heme/Lymph: No Bruising, No Bleeding Endocrine : No Polyuria, No Polydipsia Yes all other systems are reviewed and are negative [facility] Past Medical History Attestation statement: The following information was validated with the patient. Medical History Asthma Fibromyalgia HTN (hypertension) Lupus Surgical History H/O: hysterectomy Social History Social History Alcohol intake: never Smoking Status: Current every day smoker Substance Use Type: Marijuana Advance Directives: No Advance Directives Information Provided: No Physical Exam Vital Signs: Vital Signs: Last Vital Signs Temp 99.3 F 07/20/20 12:00 Pulse 108 H 07/20/20 12:00 Resp 24 H 07/20/20 12:00 BP 138/94 H 07/20/20 12:00 Pulse Ox 96 07/20/20 12:00 Body Mass Index 38.0 vital signs have been reviewed as normal and appeared to be correct. Blood pressure normal. Heart rate normal. Respiration rate normal. Temperature normal. Oxygen saturation normal. Appearance: Alert. Oriented X3. No acute distress. Head: Normal external exam. Normocephalic. Atraumatic. Eyes: PERRLA. EOMI. Conjunctiva and sclera normal. Eyelids normal. ENT: EAC normal. TM's Normal. Pharynx normal. Uvula midline. Moist mucous membranes. No trismus noted. No drooling noted. No muffled voice noted. Neck: Normal inspection. Neck supple. FROM. No adenopathy. Thyroid Normal. No meningeal signs. No neck mass noted. CVS: Normal heart rate and rhythm. Heart sound normal. No murmurs noted. Pulses normal throughout. Respiratory: No respiratory distress. Painless inspiration. Breath sounds normal. No wheezes/rales/rhonchi noted. Chest nontender. No accessory muscle usage noted or decreased air movement noted. Abdomen: Soft and nontender. Bowel sounds normal in all 4 quadrants. No distention noted. No organomegaly noted. No visible injury noted. Back: No CVA tenderness. Full range of motion noted. Skin: Skin warm and dry. Normal skin color. Normal skin turgor. No rashes/lesions/lacerations noted. Extremities: No lower extremity edema. No calf tenderness noted bilaterally. Extremities exhibit normal range of motion. Extremities nontender. Neuro: Oriented X 3. No motor deficit. No sensory deficit. Reflexes normal. Course Course Course Narrative: 39-year-old female presenting to the ED for asthma exacerbation with chest discomfort. On exam patient is alert and oriented x3. Not in any acute distress. Mild decreased breath sounds otherwise lungs clear to auscultation no wheezes/rales or rhonchi noted. CV RRR. Abdomen is soft and nontender. No lower extremity pitting edema or calf tenderness noted. Labs obtained and patient was noted to have mild elevation in her LFTs and glucose level. Her glucose was 256 and since 2019 it appears that the patient has been having elevated glucose level possibly on diagnosed diabetes therefore I added an A1c level 7.6 therefore will start the patient on 500 mg of metformin b.i.d. and instructed patient to follow-up with her PCP for further evaluation and treatment and management of new onset of diabetes. UA revealed 250 of glucose otherwise no evidence of UTI. UHCG negative for . COVID/RSV/flu pending at this time. Chest x-ray negative for any acute processes. Will DC home with antibiotics/steroids for her asthma exacerbation along with metformin for her new onset of diabetes instructions follow-up with primary care provider and to return if any new or worsening symptoms. Patient understands agrees with this plan. [facility] - Asthma Medical Records Attestation: I reviewed the patient's medical records. Lab Data Attestation: I reviewed the patient's lab results. Result diagrams: 07/20/20 12:15 07/20/20 12:15 Labs: Lab Results 07/20/20 07/20/20 07/20/20 Range/Units 10:52 10:52 12:15 WBC 10.0 (4.8-10.8) X10*3/uL RBC 4.66 (4.20-5.50) X10*6/uL Hgb 14.1 (12.0-16.0) g/dl Hct 41.6 (37-47) % MCV 89.3 (80-98) fL MCH 30.3 (27.0-33.0) pg MCHC 33.9 (31.0-35.0) g/dl RDW 13.9 (11.0-16.0) % Plt Count 261 (160-400) X10*3/uL MPV 9.6 (9.4-12.3) fL Immature Gran % (Auto) 0.4 (0.0-0.4) % Neut % (Auto) 68.0 (45-73) % Lymph % (Auto) 23.2 (20-40) % Sutton % (Auto) 5.7 (2-11) % Eos % (Auto) 2.4 (0-4) % Baso % (Auto) 0.3 (0-2) % Lymph # (Auto) 2.3 (1.2-4.9) X10*3/uL Sutton # (Auto) 0.6 (0.1-1.2) X10*3/uL Eos # (Auto) 0.2 (0.0-0.4) X10*3/uL Baso # (Auto) 0.0 (0.0-0.2) X10*3/uL Abs Immat Gran (auto) 0.04 H (0.00-0.03) X10*3/uL Absolute Neuts (auto) 6.8 (2.0-8.3) X10*3/uL Absolute Nucleated RBC 0.000 (0.0-0.012) X10*3/uL Nucleated RBC % (auto) 0.0 (0.0-0.2) /100WBC PT (10.8-13.0) SEC INR (0.9-1.1) D-Dimer NG/ML Sodium (135-145) mmol/L Potassium (3.3-5.1) mmol/L Chloride (96-108) mmol/L Carbon Dioxide (22-29) mmol/L Anion Gap (12-20) BUN (9-16) mg/dL Creatinine (0.5-1.4) mg/dL Estim Creat Clear Calc Estimated GFR Random Glucose (60-115) mg/dL Estimat Average Glucose mg/dL Hemoglobin A1c % % Lactic Acid (0.5-2.0) mmol/L Calcium (8.4-10.2) mg/dL Magnesium (1.6-2.6) mg/dL Ferritin (10-122) ng/mL Total Bilirubin (0.0-1.0) mg/dL Direct Bilirubin (0.0-0.5) mg/dL AST (5-31) U/L ALT (0-31) U/L Alkaline Phosphatase (39-117) U/L Lactate Dehydrogenase (122-220) U/L Troponin I High Sens (<3.5-17.0) ng/L C-Reactive Protein (< or = 0.50) mg/dL B-Natriuretic Peptide (<100) pg/mL Total Protein (6.5-8.0) g/dL Albumin (3.5-5.0) g/dL Procalcitonin ng/mL Beta HCG, Quant mIU/mL Urine Color YELLOW Urine Appearance CLEAR Urine pH 6.5 (5.0-8.0) Ur Specific [place] 1.025 (1.005-1.025) Urine Protein 1+ H (NEG-TRACE) MG/DL Urine Glucose (UA) 250 H (NEG) MG/DL Urine Ketones NEG (NEG) MG/DL Urine Blood NEG (NEG) Urine Nitrite NEG (NEG) Ur Leukocyte Esterase NEG (NEG) Urine RBC 0 (0) /HPF Urine WBC 0-2 (0-4) /HPF Ur Squamous Epith Cells 1+ /LPF Urine Bacteria NONE /LPF Urine Test NEGATIVE (NEGATIVE) 07/20/20 07/20/20 07/20/20 Range/Units 12:15 12:15 12:15 WBC (4.8-10.8) X10*3/uL RBC (4.20-5.50) X10*6/uL Hgb (12.0-16.0) g/dl Hct (37-47) % MCV (80-98) fL MCH (27.0-33.0) pg MCHC (31.0-35.0) g/dl RDW (11.0-16.0) % Plt Count (160-400) X10*3/uL MPV (9.4-12.3) fL Immature Gran % (Auto) (0.0-0.4) % Neut % (Auto) (45-73) % Lymph % (Auto) (20-40) % Sutton % (Auto) (2-11) % Eos % (Auto) (0-4) % Baso % (Auto) (0-2) % Lymph # (Auto) (1.2-4.9) X10*3/uL Sutton # (Auto) (0.1-1.2) X10*3/uL Eos # (Auto) (0.0-0.4) X10*3/uL Baso # (Auto) (0.0-0.2) X10*3/uL Abs Immat Gran (auto) (0.00-0.03) X10*3/uL Absolute Neuts (auto) (2.0-8.3) X10*3/uL Absolute Nucleated RBC (0.0-0.012) X10*3/uL Nucleated RBC % (auto) (0.0-0.2) /100WBC PT 12.5 (10.8-13.0) SEC INR 1.1 (0.9-1.1) D-Dimer < 200 NG/ML Sodium (135-145) mmol/L Potassium (3.3-5.1) mmol/L Chloride (96-108) mmol/L Carbon Dioxide (22-29) mmol/L Anion Gap (12-20) BUN (9-16) mg/dL Creatinine (0.5-1.4) mg/dL Estim Creat Clear Calc Estimated GFR Random Glucose (60-115) mg/dL Estimat Average Glucose mg/dL Hemoglobin A1c % % Lactic Acid (0.5-2.0) mmol/L Calcium (8.4-10.2) mg/dL Magnesium 1.8 (1.6-2.6) mg/dL Ferritin (10-122) ng/mL Total Bilirubin 0.3 (0.0-1.0) mg/dL Direct Bilirubin < 0.2 (0.0-0.5) mg/dL AST 32 H (5-31) U/L ALT 41 H (0-31) U/L Alkaline Phosphatase 126 H (39-117) U/L Lactate Dehydrogenase (122-220) U/L Troponin I High Sens < 3.5 (<3.5-17.0) ng/L C-Reactive Protein (< or = 0.50) mg/dL B-Natriuretic Peptide < 10 (<100) pg/mL Total Protein 5.9 L (6.5-8.0) g/dL Albumin 3.4 L (3.5-5.0) g/dL Procalcitonin ng/mL Beta HCG, Quant mIU/mL Urine Color Urine Appearance Urine pH (5.0-8.0) Ur Specific [place] (1.005-1.025) Urine Protein (NEG-TRACE) MG/DL Urine Glucose (UA) (NEG) MG/DL Urine Ketones (NEG) MG/DL Urine Blood (NEG) Urine Nitrite (NEG) Ur Leukocyte Esterase (NEG) Urine RBC (0) /HPF Urine WBC (0-4) /HPF Ur Squamous Epith Cells /LPF Urine Bacteria /LPF Urine Test (NEGATIVE) 07/20/20 07/20/20 07/20/20 Range/Units 12:15 12:15 12:15 WBC (4.8-10.8) X10*3/uL RBC (4.20-5.50) X10*6/uL Hgb (12.0-16.0) g/dl Hct (37-47) % MCV (80-98) fL MCH (27.0-33.0) pg MCHC (31.0-35.0) g/dl RDW (11.0-16.0) % Plt Count (160-400) X10*3/uL MPV (9.4-12.3) fL Immature Gran % (Auto) (0.0-0.4) % Neut % (Auto) (45-73) % Lymph % (Auto) (20-40) % Sutton % (Auto) (2-11) % Eos % (Auto) (0-4) % Baso % (Auto) (0-2) % Lymph # (Auto) (1.2-4.9) X10*3/uL [place] # (Auto) (0.1-1.2) X10*3/uL Eos # (Auto) (0.0-0.4) X10*3/uL Baso # (Auto) (0.0-0.2) X10*3/uL Abs Immat Gran (auto) (0.00-0.03) X10*3/uL Absolute Neuts (auto) (2.0-8.3) X10*3/uL Absolute Nucleated RBC (0.0-0.012) X10*3/uL Nucleated RBC % (auto) (0.0-0.2) /100WBC PT (10.8-13.0) SEC INR (0.9-1.1) D-Dimer NG/ML Sodium 137 (135-145) mmol/L Potassium 3.8 (3.3-5.1) mmol/L Chloride 104 (96-108) mmol/L Carbon Dioxide 25 (22-29) mmol/L Anion Gap 12 (12-20) BUN 13 D (9-16) mg/dL Creatinine 0.71 (0.5-1.4) mg/dL Estim Creat Clear Calc 119.4 Estimated GFR > 60 Random Glucose 256 H (60-115) mg/dL Estimat Average Glucose mg/dL Hemoglobin A1c % % Lactic Acid 1.5 (0.5-2.0) mmol/L Calcium 8.8 D (8.4-10.2) mg/dL Magnesium (1.6-2.6) mg/dL Ferritin 91 (10-122) ng/mL Total Bilirubin 0.3 (0.0-1.0) mg/dL Direct Bilirubin (0.0-0.5) mg/dL AST 34 H (5-31) U/L ALT 41 H (0-31) U/L Alkaline Phosphatase 124 H (39-117) U/L Lactate Dehydrogenase 220 (122-220) U/L Troponin I High Sens (<3.5-17.0) ng/L C-Reactive Protein 3.52 H (< or = 0.50) mg/dL B-Natriuretic Peptide (<100) pg/mL Total Protein 5.9 L (6.5-8.0) g/dL Albumin 3.4 L (3.5-5.0) g/dL Procalcitonin 0.06 ng/mL Beta HCG, Quant < 2 mIU/mL Urine Color Urine Appearance Urine pH (5.0-8.0) Ur Specific [place] (1.005-1.025) Urine Protein (NEG-TRACE) MG/DL Urine Glucose (UA) (NEG) MG/DL Urine Ketones (NEG) MG/DL Urine Blood (NEG) Urine Nitrite (NEG) Ur Leukocyte Esterase (NEG) Urine RBC (0) /HPF Urine WBC (0-4) /HPF Ur Squamous Epith Cells /LPF Urine Bacteria /LPF Urine Test (NEGATIVE) 07/20/20 Range/Units 12:15 WBC (4.8-10.8) X10*3/uL RBC (4.20-5.50) X10*6/uL Hgb (12.0-16.0) g/dl Hct (37-47) % MCV (80-98) fL MCH (27.0-33.0) pg MCHC (31.0-35.0) g/dl RDW (11.0-16.0) % Plt Count (160-400) X10*3/uL MPV (9.4-12.3) fL Immature Gran % (Auto) (0.0-0.4) % Neut % (Auto) (45-73) % Lymph % (Auto) (20-40) % Sutton % (Auto) (2-11) % Eos % (Auto) (0-4) % Baso % (Auto) (0-2) % Lymph # (Auto) (1.2-4.9) X10*3/uL Sutton # (Auto) (0.1-1.2) X10*3/uL Eos # (Auto) (0.0-0.4) X10*3/uL Baso # (Auto) (0.0-0.2) X10*3/uL Abs Immat Gran (auto) (0.00-0.03) X10*3/uL Absolute Neuts (auto) (2.0-8.3) X10*3/uL Absolute Nucleated RBC (0.0-0.012) X10*3/uL Nucleated RBC % (auto) (0.0-0.2) /100WBC PT (10.8-13.0) SEC INR (0.9-1.1) D-Dimer NG/ML Sodium (135-145) mmol/L Potassium (3.3-5.1) mmol/L Chloride (96-108) mmol/L Carbon Dioxide (22-29) mmol/L Anion Gap (12-20) BUN (9-16) mg/dL Creatinine (0.5-1.4) mg/dL Estim Creat Clear Calc Estimated GFR Random Glucose (60-115) mg/dL Estimat Average Glucose 171 mg/dL Hemoglobin A1c % 7.6 % Lactic Acid (0.5-2.0) mmol/L Calcium (8.4-10.2) mg/dL Magnesium (1.6-2.6) mg/dL Ferritin (10-122) ng/mL Total Bilirubin (0.0-1.0) mg/dL Direct Bilirubin (0.0-0.5) mg/dL AST (5-31) U/L ALT (0-31) U/L Alkaline Phosphatase (39-117) U/L Lactate Dehydrogenase (122-220) U/L Troponin I High Sens (<3.5-17.0) ng/L C-Reactive Protein (< or = 0.50) mg/dL B-Natriuretic Peptide (<100) pg/mL Total Protein (6.5-8.0) g/dL Albumin (3.5-5.0) g/dL Procalcitonin ng/mL Beta HCG, Quant mIU/mL Urine Color Urine Appearance Urine pH (5.0-8.0) Ur Specific [place] (1.005-1.025) Urine Protein (NEG-TRACE) MG/DL Urine Glucose (UA) (NEG) MG/DL Urine Ketones (NEG) MG/DL Urine Blood (NEG) Urine Nitrite (NEG) Ur Leukocyte Esterase (NEG) Urine RBC (0) /HPF Urine WBC (0-4) /HPF Ur Squamous Epith Cells /LPF Urine Bacteria /LPF Urine Test (NEGATIVE) Imaging Data Chest x-ray: Attestation: I personally reviewed and interpreted this imaging study as follows: Radiologist's impression: FINDINGS: The lungs are clear. The vascularity is normal. There is no airspace consolidation or effusion. The heart is normal in size. The hilar and mediastinal contours are unremarkable. There is minor calcific tendinosis again seen adjacent to right humeral head. No acute bony abnormality. XR/XR chest 1V IMPRESSION: Lungs clear. Critical Care Time Critical Care Time Critical Care Time: Yes Total Critical Care Time: 60 Attestation: I personally attest to this time spent taking care of the patient Discharge Plan Discharge Clinical Impression: Asthma with exacerbation, Acute bronchitis with bronchospasm, New onset type 2 diabetes mellitus, Elevated LFTs Patient Disposition: Home, Self-Care Instructions: Type 2 Diabetes in Adults: New Diagnosis (ED), Acute Bronchitis (ED), How to Use a Nebulizer (ED), Bronchospasm (ED), Wheezing (ED), What to Do if Your Blood Sugar is Low (ED), How to Check your Blood Sugar (ED) Additional Instructions: I have noticed today since 2019 you have had elevated glucose levels therefore I obtain a A1c level and it was 7.6 today therefore we are starting you on metformin for newly diagnosed type 2 diabetes. You need to check her blood glucose in the morning and at bedtime and before meals. You also had mild e levation in your liver function test. You should have a follow-up with her primary care provider this week for further evaluation treatment on this. I am starting you on steroids which could increase her blood glucose levels therefore you need to monitor diet and a glucose levels. Return if any new or worsening symptoms and follow up with her primary care provider. Prescriptions: New metformin 500 mg tablet 500 mg PO BID 30 Days Qty: 60 RF: 0 albuterol sulfate 0.63 mg/3 mL solution for nebulization 0.63 mg inhalation QID PRN (Reason: shortness of breath or wheezing) Qty: 75 RF: 0 albuterol sulfate 90 mcg/actuation HFA aerosol inhaler 1 inh inhalation QID PRN (Reason: shortness of breath or wheezing) Qty: 8.5 RF: 0 ibuprofen 800 mg tablet 800 mg PO Q8H PRN (Reason: pain) Qty: 14 RF: 0 acetaminophen [Tylenol Extra Strength] 500 mg tablet 1,000 mg PO QID PRN (Reason: fever or pain) Qty: 14 RF: 0 doxycycline monohydrate 100 mg capsule 100 mg PO BID 10 Days Qty: 20 RF: 0 prednisone 20 mg tablet 40 mg PO DAILY 5 Days Qty: 10 RF: 0 (DME) blood-glucose meter [FreeStyle Baker Lite] Kit See Rx Instructions .ROUTE .MEDSUPPLY Qty: 1 RF: 0 (DME) FreeStyle Lite Strips Strip See Rx Instructions .ROUTE .MEDSUPPLY Qty: 100 RF: 0 (DME) lancets [FreeStyle Lancets] 28 gauge misc See Rx Instructions .ROUTE .MEDSUPPLY Qty: 100 RF: 0 No Action prednisone 20 mg tablet 40 mg PO DAILY 4 Days Qty: 8 RF: 0 albuterol sulfate 90 mcg/actuation HFA aerosol inhaler 2 puff inhalation Q6H PRN (Reason: shortness of breath or wheezing) Qty: 18 RF: 0 albuterol sulfate 1.25 mg/3 mL solution for nebulization 1.25 mg inhalation Q4-6H PRN (Reason: shortness of breath or wheezing) Qty: 75 RF: 0 prednisone 20 mg tablet 40 mg PO DAILY 5 Days Qty: 10 RF: 0 prednisone 20 mg tablet 60 mg PO DAILY 5 Days Qty: 15 RF: 0 doxycycline hyclate 100 mg tablet 100 mg PO Q12H 10 Days Qty: 20 RF: 0 Print Language: Qatari
[2020-07-20 13:55] LABS: Estimated Average Glucose 171 mg/dL; Hemoglobin A1c % 7.6 %
[2020-07-20 14:26] LABS: Influenza A PCR NEGATIVE (Negative); Influenza B PCR NEGATIVE (Negative); Resp Syncy Virus RNA Qual PCR NEGATIVE (Negative); SARS COV2 PCR INHOUSE NEGATIVE (Negative)
== END 2020-07-20 14:45 | disposition home or self-care (01) ==
PROVIDERS: Physician Assistant Medical; Emergency Provider Emergency Medicine; PCP Nurse Practitioner Adult Health
DX: R07.89 Other chest pain (principal); J45.901 Unspecified asthma with (acute) exacerbation; J20.9 Acute bronchitis, unspecified; E11.9 Type 2 diabetes mellitus without complications; R79.89 Other specified abnormal findings of blood chemistry; Z20.822 Contact with and (suspected) exposure to COVID-19; I10 Essential (primary) hypertension; M32.9 Systemic lupus erythematosus, unspecified; F17.210 Nicotine dependence, cigarettes, uncomplicated; F12.90 Cannabis use, unspecified, uncomplicated
CPT/HCPCS: 0241U; 36415; 71045; 80053; 80076; 81001; 81003; 81025; 82248; 82728; 83036; 83605; 83615; 83735; 83880; 84145; 84484; 84702; 85025; 85379; 85610; 86140; 87040; 96361; 96374; 99284; J2930

== ENCOUNTER 2020-08-18 19:21 | Emergency (ER) | payer OTHER, SELFPAY ==
--- NOTE | ~2020-08-18 | CT_ITS ---
EXAMINATION: CT ABDOMEN AND PELVIS WITHOUT CONTRAST CLINICAL INFORMATION: Right flank pain with history of kidney stones COMPARISON: CT abdomen pelvis 06/08/2019 TECHNIQUE: Multidetector volumetric imaging was performed from the superior aspect of the liver through the pubic symphysis. Sagittal and coronal reformatted images were obtained on the technologist's workstation. This CT examination was performed using dose optimization techniques as appropriate, variously including the following: *Automated exposure control *Adjustment of mA and/or kV according to patient size (this includes techniques or standardized protocols for targeted exams where dose is matched to indication/reason for exam; i.e. extremities or head) *Use of iterative reconstruction technique DLP: 742 mGy-cm FINDINGS: LUNG BASES: The visualized lung bases are unremarkable. A small right anterior preparacardiac and posterior paracardiac lymph node is present. LIVER, GALLBLADDER, AND BILIARY TREE: The liver is enlarged measuring over 21 cm in length and demonstrates decreased attenuation consistent with hepatic no focal liver mass or bile duct dilatation is seen. The gallbladder is contracted but otherwise unremarkable with no evidence of radiopaque gallstones, gallbladder wall thickening, or obvious pericholecystic inflammatory changes. PANCREAS: Unremarkable. SPLEEN: Unremarkable. ADRENAL GLANDS: Unremarkable. KIDNEYS AND URETERS: The kidneys are normal in size, shape, and attenuation. Again seen is a nonobstructing right lower pole renal calculus. This measures 6 mm in size and 817 Hounsfield units. It is 17 cm from the posterior axillary line. No hydronephrosis, hydroureter, or left-sided calculi seen. No perinephric stranding. BLADDER: Empty and poorly evaluated. No stones are seen. GASTROINTESTINAL TRACT: The small and large bowel are unremarkable. Some colonic diverticula are present without diverticulitis. The appendix is unremarkable. ABDOMINAL WALL: No significant hernia is appreciated. There has been prior abdominal wall hernia repair. LYMPH NODES: Small retroperitoneal lymph nodes are present but no gross lymphadenopathy seen. Findings are unchanged when compared to the prior study. The largest is left para-aortic measuring 1.3 x 0.9 x 2.0 cm (503:296) VASCULAR: Unremarkable. PELVIC VISCERA: Surgically absent. Previously seen left adnexal cyst has dramatically decreased in size and is now normal. OSSEOUS STRUCTURES: Unremarkable. CT/CT abdomen pelvis wo con IMPRESSION: 1. A cause for the patient's acute right flank pain has not been found. 2. Again noted nonobstructing right lower pole renal calculus 3. Enlarged fatty liver. 4. Other incidental findings as described above
--- NOTE | ~2020-08-18 | XR_ITS ---
EXAMINATION: XR CHEST CLINICAL INFORMATION: Shortness of breath COMPARISON: 07/20/2020 TECHNIQUE: Frontal view of the chest was obtained. FINDINGS: No significant abnormality is noted involving the heart, lungs, mediastinum, bony thorax or soft tissues. XR/XR chest 1V IMPRESSION: Unremarkable examination.
[2020-08-18 19:53] VITALS: BP 169/84; PULSE 97; RESP 18; TEMP 36.6; O2SAT 100; BMI 38.0
[2020-08-18 20:30] VITALS: O2SAT 97
[2020-08-18 21:20] LABS: COVID-19 Test Negative (Negative); IDNOW Serial# 9DD0AD1C
--- NOTE | 2020-08-18 21:43 | ED_ITS ---
HPI - Abdominal Pain General Chief Complaint: Upper Respiratory Symptoms Stated Complaint: diff. breathing Time Seen by Provider: 08/18/20 20:06 Source: patient Mode of arrival: ambulatory Limitations: no limitations History of Present Illness HPI narrative: Patient's history of kidney stone complaining of pain in right flank area for last 3 days radiating to the right front of the abdomen no urinary complaints no hematuria also having cough body aches. No fever no chills Related Data Previous Rx's Medication Instructions Recorded albuterol sulfate 1.25 mg INHALATION Q4-6H PRN #75 ml 01/25/20 albuterol sulfate 2 puff INHALATION Q6H PRN #18 g 01/25/20 prednisone 40 mg PO DAILY 5 Days #10 tab 02/15/20 prednisone 40 mg PO DAILY 4 Days #8 tab 03/10/20 doxycycline hyclate 100 mg PO Q12H 10 Days #20 tab 05/19/20 prednisone 60 mg PO DAILY 5 Days #15 tab 05/19/20 acetaminophen [Tylenol Extra 1,000 mg PO QID PRN #14 tab 07/20/20 Strength] albuterol sulfate 0.63 mg INHALATION QID PRN #75 ml 07/20/20 albuterol sulfate 1 inh INHALATION QID PRN #8.5 g 07/20/20 blood sugar diagnostic [FreeStyle #100 ea 07/20/20 Lite Strips] blood-glucose meter [FreeStyle #1 ea 07/20/20 [place] Lite] doxycycline monohydrate 100 mg PO BID 10 Days #20 cap 07/20/20 ibuprofen 800 mg PO Q8H PRN #14 tab 07/20/20 lancets [FreeStyle Lancets] #100 ea 07/20/20 metformin 500 mg PO BID 30 Days #60 tab 07/20/20 prednisone 40 mg PO DAILY 5 Days #10 tab 07/20/20 tramadol 50 mg PO Q6H PRN #20 tab 08/18/20 Allergies Allergy/AdvReac Type Severity Reaction Status Date / Time hydrocodone [From VICODIN] Allergy Mild HIVES Verified 01/25/20 17:24 oxycodone [From PERCOCET] Allergy Mild HIVES Verified 01/25/20 17:24 azithromycin [AZITHROMYCIN] Allergy Unknown NAUSEA & Verified 01/25/20 17:24 VOMITING erythromycin base Allergy Unknown NAUSEA & Verified 01/25/20 17:24 [From ERYTHROCIN] VOMITING Review of Systems Review of Systems Constitutional : No Weight loss, No Fever, No Chills ENT/Mouth : No sore throat, No Rhinorrhea Eyes: No Eye Pain, No Swelling Cardiovascular : No Chest Pain, no palpitations Respiratory : No Cough, No Sputum, no shortness of breath Gastrointestinal : +Nausea, No Vomiting, No Diarrhea, + abdominal Pain, no black stools Genitourinary : No Dysuria, No Urinary Frequency Musculoskeletal : No joint pain, No Myalgias, No Joint Swelling , +back pain Skin : No Skin Lesions, No rash Neuro : No Weakness, No Numbness, No Dizziness, No Headache Psych : No Anxiety/Panic, No Depression Heme/Lymph: No Bruising, No Lymphadenopathy Endocrine : No Polyuria, No Polydipsia All other systems reviewed and are negative Physical Exam Vital Signs: Vital Signs: Last Vital Signs Temp 98 F 08/18/20 19:53 Pulse 84 08/18/20 22:00 Resp 15 08/18/20 22:00 BP 143/76 H 08/18/20 22:00 Pulse Ox 100 08/18/20 22:00 Body Mass Index 38.0 Appearance: Alert. Oriented X3. No acute distress. Eyes: PERRLA, No Nystagmus ENT: Pharynx normal. Oral Mucosa moist Neck: Normal inspection. Neck supple. CVS: Normal heart rate and rhythm. Pulses normal. Respiratory: No respiratory distress. Equal air entry bilateral, no wheezing/ rales/rhonchi Abdomen: Soft and nontender. Bowel sounds are present, no mass palpable, right CVA tenderness + Skin: Skin warm and dry. Normal skin color. Normal skin turgor. Extremities: No lower extremity edema. No calf tenderness Neuro: Oriented X 3. No motor deficit. No sensory deficit. MDM - Abdominal Pain MDM Narrative Medical decision making narrative: Patient with right flank pain CT scan negative for any kidney stone urine is also negative COVID test negative likely etiology for pain is musculoskeletal discharge patient home on tramadol Lab Data Attestation: I reviewed the patient's lab results. Result diagrams: 08/18/20 22:16 08/18/20 22:16 Labs: Lab Results 08/18/20 08/18/20 08/18/20 Range/Units 20:52 22:16 22:16 WBC 11.2 H (4.8-10.8) X10*3/uL RBC 4.51 (4.20-5.50) X10*6/uL Hgb 13.7 (12.0-16.0) g/dl Hct 40.0 (37-47) % MCV 88.7 (80-98) fL MCH 30.4 (27.0-33.0) pg MCHC 34.3 (31.0-35.0) g/dl RDW 13.5 (11.0-16.0) % Plt Count 308 (160-400) X10*3/uL MPV 9.6 (9.4-12.3) fL Immature Gran % (Auto) 0.5 H (0.0-0.4) % Neut % (Auto) 61.4 (45-73) % Lymph % (Auto) 30.2 (20-40) % [place] % (Auto) 5.6 (2-11) % Eos % (Auto) 2.0 (0-4) % Baso % (Auto) 0.3 (0-2) % Lymph # (Auto) 3.4 (1.2-4.9) X10*3/uL [place] # (Auto) 0.6 (0.1-1.2) X10*3/uL Eos # (Auto) 0.2 (0.0-0.4) X10*3/uL Baso # (Auto) 0.0 (0.0-0.2) X10*3/uL Abs Immat Gran (auto) 0.06 H (0.00-0.03) X10*3/uL Absolute Neuts (auto) 6.9 (2.0-8.3) X10*3/uL Absolute Nucleated RBC 0.000 (0.0-0.012) X10*3/uL Nucleated RBC % (auto) 0.0 (0.0-0.2) /100WBC Sodium 140 (135-145) mmol/L Potassium 3.9 (3.3-5.1) mmol/L Chloride 104 (96-108) mmol/L Carbon Dioxide 27 (22-29) mmol/L Anion Gap 13 (12-20) BUN 15 (9-16) mg/dL Creatinine 0.68 (0.5-1.4) mg/dL Estim Creat Clear Calc 124.7 Estimated GFR > 60 POC Glucose (60-115) mg/dL Random Glucose 176 H (60-115) mg/dL Calcium 8.9 (8.4-10.2) mg/dL Urine Color Urine Appearance Urine pH (5.0-8.0) Ur Specific [place] (1.005-1.025) Urine Protein (NEG-TRACE) MG/DL Urine Glucose (UA) (NEG) MG/DL Urine Ketones (NEG) MG/DL Urine Blood (NEG) Urine Nitrite (NEG) Ur Leukocyte Esterase (NEG) COVID-19 (RAZA) Negative (Negative) COVID-19 Clin Com See Note 08/18/20 08/18/20 Range/Units 22:16 22:24 WBC (4.8-10.8) X10*3/uL RBC (4.20-5.50) X10*6/uL Hgb (12.0-16.0) g/dl Hct (37-47) % MCV (80-98) fL MCH (27.0-33.0) pg MCHC (31.0-35.0) g/dl RDW (11.0-16.0) % Plt Count (160-400) X10*3/uL MPV (9.4-12.3) fL Immature Gran % (Auto) (0.0-0.4) % Neut % (Auto) (45-73) % Lymph % (Auto) (20-40) % [place] % (Auto) (2-11) % Eos % (Auto) (0-4) % Baso % (Auto) (0-2) % Lymph # (Auto) (1.2-4.9) X10*3/uL [place] # (Auto) (0.1-1.2) X10*3/uL Eos # (Auto) (0.0-0.4) X10*3/uL Baso # (Auto) (0.0-0.2) X10*3/uL Abs Immat Gran (auto) (0.00-0.03) X10*3/uL Absolute Neuts (auto) (2.0-8.3) X10*3/uL Absolute Nucleated RBC (0.0-0.012) X10*3/uL Nucleated RBC % (auto) (0.0-0.2) /100WBC Sodium (135-145) mmol/L Potassium (3.3-5.1) mmol/L Chloride (96-108) mmol/L Carbon Dioxide (22-29) mmol/L Anion Gap (12-20) BUN (9-16) mg/dL Creatinine (0.5-1.4) mg/dL Estim Creat Clear Calc Estimated GFR POC Glucose 172 H (60-115) mg/dL Random Glucose (60-115) mg/dL Calcium (8.4-10.2) mg/dL Urine Color YELLOW Urine Appearance CLEAR Urine pH 6.5 (5.0-8.0) Ur Specific [place] 1.025 (1.005-1.025) Urine Protein TRACE (NEG-TRACE) MG/DL Urine Glucose (UA) NEG (NEG) MG/DL Urine Ketones NEG (NEG) MG/DL Urine Blood NEG (NEG) Urine Nitrite NEG (NEG) Ur Leukocyte Esterase NEG (NEG) COVID-19 (RAZA) (Negative) COVID-19 Clin Com Discharge Plan Discharge Clinical Impression: Right flank pain Patient Disposition: Home, Self-Care Instructions: Flank Pain (ED) Additional Instructions: The pain in the back is likely muscular no kidney stone or kidney infection seen. Take pain medication as advised to drink plenty of fluids Prescriptions: New tramadol 50 mg tablet 50 mg PO Q6H PRN (Reason: pain) Qty: 20 RF: 0 No Action prednisone 20 mg tablet 40 mg PO DAILY 4 Days Qty: 8 RF: 0 albuterol sulfate 90 mcg/actuation HFA aerosol inhaler 2 puff inhalation Q6H PRN (Reason: shortness of breath or wheezing) Qty: 18 RF: 0 albuterol sulfate 1.25 mg/3 mL solution for nebulization 1.25 mg inhalation Q4-6H PRN (Reason: shortness of breath or wheezing) Qty: 75 RF: 0 prednisone 20 mg tablet 40 mg PO DAILY 5 Days Qty: 10 RF: 0 prednisone 20 mg tablet 60 mg PO DAILY 5 Days Qty: 15 RF: 0 doxycycline hyclate 100 mg tablet 100 mg PO Q12H 10 Days Qty: 20 RF: 0 metformin 500 mg tablet 500 mg PO BID 30 Days Qty: 60 RF: 0 albuterol sulfate 0.63 mg/3 mL solution for nebulization 0.63 mg inhalation QID PRN (Reason: shortness of breath or wheezing) Qty: 75 RF: 0 albuterol sulfate 90 mcg/actuation HFA aerosol inhaler 1 inh inhalation QID PRN (Reason: shortness of breath or wheezing) Qty: 8.5 RF: 0 ibuprofen 800 mg tablet 800 mg PO Q8H PRN (Reason: pain) Qty: 14 RF: 0 acetaminophen [Tylenol Extra Strength] 500 mg tablet 1,000 mg PO QID PRN (Reason: fever or pain) Qty: 14 RF: 0 doxycycline monohydrate 100 mg capsule 100 mg PO BID 10 Days Qty: 20 RF: 0 prednisone 20 mg tablet 40 mg PO DAILY 5 Days Qty: 10 RF: 0 (DME) blood-glucose meter [FreeStyle [place] Lite] Kit See Rx Instructions .ROUTE .MEDSUPPLY Qty: 1 RF: 0 (DME) FreeStyle Lite Strips Strip See Rx Instructions .ROUTE .MEDSUPPLY Qty: 100 RF: 0 (DME) lancets [FreeStyle Lancets] 28 gauge misc See Rx Instructions .ROUTE .MEDSUPPLY Qty: 100 RF: 0 PMFSH Past Medical History Medical History Asthma Fibromyalgia HTN (hypertension) Lupus Surgical History H/O: hysterectomy Social History Social History Alcohol intake: never Smoking Status: Current every day smoker Use of substances other than those prescribed or required for medical reasons: No Substance Use Type: Marijuana Advance Directives: No Advance Directives Information Provided: Yes Patient : No
[2020-08-18 22:00] VITALS: BP 143/76; PULSE 84; RESP 15; O2SAT 100
[2020-08-18] MEDS: 0.9 % Sodium Chloride 1,000 ML 999 ML IVCONT (22:15)
[2020-08-18 22:23] LABS: Basophils Percent Auto 0.3 % (0-2); Eosinophils Absolute Auto 0.2 X10*3/uL (0.0-0.4); Hemoglobin 13.7 g/dl (12.0-16.0); Imm Gran Abs Auto 0.06 X10*3/uL (0.00-0.03); Imm Gran Pct Auto 0.5 % (0.0-0.4); Lymphocytes Absolute Auto 3.4 X10*3/uL (1.2-4.9); Lymphocytes Percent Auto 30.2 % (20-40); MANUAL DIFF FLAG NO; Mean Corpuscular HGB Conc 34.3 g/dl (31.0-35.0); Mean Corpuscular Hemoglobin 30.4 pg (27.0-33.0); Mean Corpuscular Volume 88.7 fL (80-98); Mean Platelet Volume 9.6 fL (9.4-12.3); Monocytes Absolute Auto 0.6 X10*3/uL (0.1-1.2); Monocytes Percent Auto 5.6 % (2-11); Neutrophils Absolute Auto 6.9 X10*3/uL (2.0-8.3); Neutrophils Percent Auto 61.4 % (45-73); Platelet Count 308 X10*3/uL (160-400); Red Blood Count 4.51 X10*6/uL (4.20-5.50); Red Cell Distribution Width 13.5 % (11.0-16.0); White Blood Count 11.2 X10*3/uL (4.8-10.8)
[2020-08-18 22:26] LABS: Appearance Urine CLEAR; Color Urine YELLOW; Glucose Urine UA NEG (NEG); Leukocyte Esterase Urine NEG (NEG); Nitrite Urine NEG (NEG); PH 6.5 (5.0-8.0); Specific Gravity - Urine 1.025 (1.005-1.025); Urine Blood NEG (NEG); Urine Ketones NEG (NEG); Urine Protein TRACE MG/DL (NEG-TRACE)
[2020-08-18 22:30] LABS: Glucose, Whole Blood 172 mg/dL (60-115)
[2020-08-18] MEDS: Ketorolac Tromethamine 30 MG/ML VIAL IVPUSH (22:45)
[2020-08-18] MEDS: ondansetron HCL 4 MG/2 ML VIAL IVPUSH (22:46)
[2020-08-18 22:52] LABS: Anion Gap 13 (12-20); Blood Urea Nitrogen 15 mg/dL (9-16); Calcium 8.9 mg/dL (8.4-10.2); Carbon Dioxide 27 mmol/L (22-29); Chloride 104 mmol/L (96-108); Creatinine Clr Calc Pharmacy 124.7; Estimated Glomerular Filt Rate > 60; Glucose Random 176 mg/dL (60-115); Potassium 3.9 mmol/L (3.3-5.1); Sodium 140 mmol/L (135-145)
== END 2020-08-19 01:04 | disposition home or self-care (01) ==
PROVIDERS: Nurse Practitioner Family; Emergency Provider Internal Medicine; PCP Nurse Practitioner Adult Health
DX: R10.9 Unspecified abdominal pain (principal); Z20.822 Contact with and (suspected) exposure to COVID-19; I10 Essential (primary) hypertension; M32.9 Systemic lupus erythematosus, unspecified; F17.200 Nicotine dependence, unspecified, uncomplicated; F12.90 Cannabis use, unspecified, uncomplicated; Z87.442 Personal history of urinary calculi
CPT/HCPCS: 36415; 71045; 74176; 80048; 81003; 82947; 85025; 87635; 96361; 96374; 96375; 99284; 99285; J1885; J2405

== ENCOUNTER 2020-12-10 16:17 | Emergency (ER) | payer OTHER, SELFPAY ==
--- NOTE | ~2020-12-10 | CT_ITS ---
EXAMINATION: CT ABDOMEN AND PELVIS WITHOUT CONTRAST CLINICAL INFORMATION: Severe right flank pain with history of stone. COMPARISON: 08/18/2020 TECHNIQUE: Multidetector volumetric imaging was performed from the superior aspect of the liver through the pubic symphysis. Sagittal and coronal reformatted images were obtained on the technologist's workstation. This CT examination was performed using dose optimization techniques as appropriate, variously including the following: *Automated exposure control *Adjustment of mA and/or kV according to patient size (this includes techniques or standardized protocols for targeted exams where dose is matched to indication/reason for exam; i.e. extremities or head) *Use of iterative reconstruction technique DLP: 749 mGy-cm FINDINGS: LUNG BASES: The visualized lung bases are unremarkable. LIVER, GALLBLADDER, AND BILIARY TREE: The liver is normal in size and shape with decreased attenuation. There is a well-demarcated low-attenuation lesion in segment IVb of the liver measuring 3.7 cm. This is unchanged from prior.. The gallbladder is unremarkable with no evidence of radiopaque gallstones, gallbladder wall thickening, or obvious pericholecystic inflammatory changes. PANCREAS: Unremarkable. SPLEEN: Unremarkable. ADRENAL GLANDS: Unremarkable. KIDNEYS AND URETERS: The kidneys are normal in size, shape, and attenuation. There is mild right hydroureteronephrosis. 0.3 cm right mid ureteral calculus is seen at the level of L4. The distal ureter is decompressed. No additional calculi are seen. BLADDER: Unremarkable. GASTROINTESTINAL TRACT: The stomach is unremarkable. Normal caliber small bowel. There is no obstruction. Colonic diverticulosis noted without diverticulitis. No free air. No free fluid. ABDOMINAL WALL: Prior ventral abdominal wall hernia repair. Small fat-containing hernia remains inferior to the mesh. LYMPH NODES: Normal. VASCULAR: Unremarkable. PELVIC VISCERA: The uterus is not seen. No adnexal mass. OSSEOUS STRUCTURES: Unremarkable. CT/CT abdomen pelvis wo con IMPRESSION: Mild right hydroureteronephrosis with a 0.3 cm mid ureteral obstructing calculus. Hepatic steatosis. Unchanged hypoattenuating lesion in the liver which measures slightly higher than simple fluid attenuation.
[2020-12-10 16:18] VITALS: BP 199/145; PULSE 99; RESP 18; TEMP 36.4; O2SAT 96; BMI 38.0
[2020-12-10 16:58] LABS: Glucose Urine UA 250 MG/DL (NEG); Leukocyte Esterase Urine NEG (NEG); Nitrite Urine NEG (NEG); Specific Gravity - Urine 1.025 (1.005-1.025); UACC Culture Trigger NO; Urine Blood 3+ (NEG); Urine Ketones NEG (NEG); Urine Protein 1+ MG/DL (NEG-TRACE)
[2020-12-10 17:01] LABS: Appearance Urine HAZY; Color Urine YELLOW
[2020-12-10 17:26] LABS: RBC Urine 30-49 /HPF (0); Squamous Epithelial Cell Urine 2+ /LPF; WBC Urine 0-2 /HPF (0-4)
[2020-12-10] MEDS: ondansetron HCL 4 MG/2 ML VIAL IVPUSH (17:52)
[2020-12-10] MEDS: Ketorolac Tromethamine 15 MG/ML VIAL IVPUSH (17:59)
[2020-12-10] MEDS: Morphine Sulfate 4 MG/ML CARTRIDGE IVPUSH ×2 (17:59→19:05)
[2020-12-10 18:00] VITALS: BP 154/88; PULSE 104; RESP 16; TEMP 36.8; O2SAT 98
--- NOTE | 2020-12-10 18:03 | ED_ITS ---
HPI - Abdominal Pain General Chief Complaint: General Medical Stated Complaint: back pain Time Seen by Provider: 12/10/20 17:21 Source: patient Mode of arrival: ambulatory Limitations: no limitations History of Present Illness HPI narrative: Patient with history of kidney stone few years ago had lithotripsy was seen here in 08/28 1st right flank pain CT scan was negative comes here for increasing pain since last night on the right flank area so with nausea and vomiting pain is sharp in character constant getting worse in between get worse especially when taking deep breath no urine complaints no fever no chills no hematuria Related Data Previous Rx's Medication Instructions Recorded albuterol sulfate 1.25 mg/3 mL 1.25 mg INHALATION Q4-6H PRN #75 ml 01/25/20 solution for nebulization albuterol sulfate 90 mcg/actuation 2 puff INHALATION Q6H PRN #18 g 01/25/20 aerosol inhaler prednisone 20 mg tablet 40 mg PO DAILY 5 Days #10 tab 02/15/20 prednisone 20 mg tablet 40 mg PO DAILY 4 Days #8 tab 03/10/20 doxycycline hyclate 100 mg tablet 100 mg PO Q12H 10 Days #20 tab 05/19/20 prednisone 20 mg tablet 60 mg PO DAILY 5 Days #15 tab 05/19/20 acetaminophen 500 mg tablet 1,000 mg PO QID PRN #14 tab 07/20/20 (Tylenol Extra Strength) albuterol sulfate 0.63 mg/3 mL 0.63 mg INHALATION QID PRN #75 ml 07/20/20 solution for nebulization albuterol sulfate 90 mcg/actuation 1 inh INHALATION QID PRN #8.5 g 07/20/20 aerosol inhaler blood sugar diagnostic (FreeStyle #100 ea 07/20/20 Lite Strips) blood-glucose meter (FreeStyle #1 ea 07/20/20 [place] Lite) doxycycline monohydrate 100 mg 100 mg PO BID 10 Days #20 cap 07/20/20 capsule ibuprofen 800 mg tablet 800 mg PO Q8H PRN #14 tab 07/20/20 lancets 28 gauge (FreeStyle #100 ea 07/20/20 Lancets) metformin 500 mg tablet 500 mg PO BID 30 Days #60 tab 07/20/20 prednisone 20 mg tablet 40 mg PO DAILY 5 Days #10 tab 07/20/20 tramadol 50 mg tablet 50 mg PO Q6H PRN #20 tab 05/11/21 hydromorphone 2 mg tablet 2 mg PO Q6H PRN #14 tab 12/10/20 (Dilaudid) ondansetron 4 mg disintegrating 4 mg PO Q6-8H PRN #7 tab 12/10/20 tablet tamsulosin 0.4 mg capsule (Flomax) 0.4 mg PO DAILY #7 cap 12/10/20 Allergies Allergy/AdvReac Type Severity Reaction Status Date / Time hydrocodone [From VICODIN] Allergy Mild HIVES Verified 12/10/20 16:17 oxycodone [From PERCOCET] Allergy Mild HIVES Verified 12/10/20 16:17 azithromycin [AZITHROMYCIN] Allergy Unknown NAUSEA & Verified 12/10/20 16:17 VOMITING erythromycin base Allergy Unknown NAUSEA & Verified 12/10/20 16:17 [From ERYTHROCIN] VOMITING Review of Systems Review of Systems Yes all other systems are reviewed and are negative Physical Exam Vital Signs: Vital Signs: Last Vital Signs Temp 98.3 F 12/10/20 18:00 Pulse 83 12/10/20 20:38 Resp 20 12/10/20 20:38 BP 131/75 12/10/20 20:38 Pulse Ox 98 12/10/20 18:00 Body Mass Index 38.0 Appearance: Alert. Oriented X3. Moderate distress Eyes: No pallor or icterus ENT: Pharynx normal. Oral Mucosa moist Neck: Normal inspection. Neck supple. CVS: Normal heart rate and rhythm. Pulses normal. Respiratory: No respiratory distress. Equal air entry bilateral, no wheezi ng/rales/rhonchi Abdomen: Soft and nontender. Bowel sounds are present, no mass palpable, right CVA tenderness++ Skin: Skin warm and dry. Normal skin color. Normal skin turgor. Extremities: No lower extremity edema. No calf tenderness Neuro: Oriented X 3. No motor deficit. MDM - Abdominal Pain Lab Data Result diagrams: 12/10/20 18:27 12/10/20 18:27 Labs: Lab Results 12/10/20 12/10/20 12/10/20 Range/Units 16:36 18:27 18:27 WBC 15.8 H (4.8-10.8) X10*3/uL RBC 4.95 (4.20-5.50) X10*6/uL Hgb 14.9 (12.0-16.0) g/dl Hct 42.8 (37-47) % MCV 86.5 (80-98) fL MCH 30.1 (27.0-33.0) pg MCHC 34.8 (31.0-35.0) g/dl RDW 13.5 (11.0-16.0) % Plt Count 329 (160-400) X10*3/uL MPV 9.6 (9.4-12.3) fL Immature Gran % (Auto) 0.5 H (0.0-0.4) % Neut % (Auto) 76.3 H (45-73) % Lymph % (Auto) 14.3 L (20-40) % [place] % (Auto) 7.3 (2-11) % Eos % (Auto) 1.3 (0-4) % Baso % (Auto) 0.3 (0-2) % Lymph # (Auto) 2.3 (1.2-4.9) X10*3/uL [place] # (Auto) 1.2 (0.1-1.2) X10*3/uL Eos # (Auto) 0.2 (0.0-0.4) X10*3/uL Baso # (Auto) 0.0 (0.0-0.2) X10*3/uL Abs Immat Gran (auto) 0.08 H (0.00-0.03) X10*3/uL Absolute Neuts (auto) 12.1 H (2.0-8.3) X10*3/uL Absolute Nucleated RBC 0.000 (0.0-0.012) X10*3/uL Nucleated RBC % (auto) 0.0 (0.0-0.2) /100WBC Sodium 139 (135-145) mmol/L Potassium 4.1 (3.3-5.1) mmol/L Chloride 105 (96-108) mmol/L Carbon Dioxide 26 (22-29) mmol/L Anion Gap 12 (12-20) BUN 17 H (9-16) mg/dL Creatinine 0.96 (0.5-1.4) mg/dL Estim Creat Clear Calc 87.5 Estimated GFR > 60 Random Glucose 123 H (60-115) mg/dL Calcium 9.6 D (8.4-10.2) mg/dL Total Bilirubin (0.0-1.0) mg/dL Direct Bilirubin (0.0-0.5) mg/dL AST (5-31) U/L ALT (0-31) U/L Alkaline Phosphatase (39-117) U/L Total Protein (6.5-8.0) g/dL Albumin (3.5-5.0) g/dL Lipase (8-78) U/L Urine Color YELLOW Urine Appearance HAZY Urine pH 6.0 (5.0-8.0) Ur Specific [place] 1.025 (1.005-1.025) Urine Protein 1+ H (NEG-TRACE) MG/DL Urine Glucose (UA) 250 H (NEG) MG/DL Urine Ketones NEG (NEG) MG/DL Urine Blood 3+ H (NEG) Urine Nitrite NEG (NEG) Ur Leukocyte Esterase NEG (NEG) Urine RBC 30-49 H (0) /HPF Urine WBC 0-2 (0-4) /HPF Ur Squamous Epith Cells 2+ /LPF Urine Bacteria NONE /LPF 12/10/20 Range/Units 18:27 WBC (4.8-10.8) X10*3/uL RBC (4.20-5.50) X10*6/uL Hgb (12.0-16.0) g/dl Hct (37-47) % MCV (80-98) fL MCH (27.0-33.0) pg MCHC (31.0-35.0) g/dl RDW (11.0-16.0) % Plt Count (160-400) X10*3/uL MPV (9.4-12.3) fL Immature Gran % (Auto) (0.0-0.4) % Neut % (Auto) (45-73) % Lymph % (Auto) (20-40) % [place] % (Auto) (2-11) % Eos % (Auto) (0-4) % Baso % (Auto) (0-2) % Lymph # (Auto) (1.2-4.9) X10*3/uL [place] # (Auto) (0.1-1.2) X10*3/uL Eos # (Auto) (0.0-0.4) X10*3/uL Baso # (Auto) (0.0-0.2) X10*3/uL Abs Immat Gran (auto) (0.00-0.03) X10*3/uL Absolute Neuts (auto) (2.0-8.3) X10*3/uL Absolute Nucleated RBC (0.0-0.012) X10*3/uL Nucleated RBC % (auto) (0.0-0.2) /100WBC Sodium (135-145) mmol/L Potassium (3.3-5.1) mmol/L Chloride (96-108) mmol/L Carbon Dioxide (22-29) mmol/L Anion Gap (12-20) BUN (9-16) mg/dL Creatinine (0.5-1.4) mg/dL Estim Creat Clear Calc Estimated GFR Random Glucose (60-115) mg/dL Calcium (8.4-10.2) mg/dL Total Bilirubin 0.3 (0.0-1.0) mg/dL Direct Bilirubin < 0.2 (0.0-0.5) mg/dL AST 44 H (5-31) U/L ALT 40 H (0-31) U/L Alkaline Phosphatase 119 H (39-117) U/L Total Protein 6.8 (6.5-8.0) g/dL Albumin 3.8 (3.5-5.0) g/dL Lipase 28 (8-78) U/L Urine Color Urine Appearance Urine pH (5.0-8.0) Ur Specific [place] (1.005-1.025) Urine Protein (NEG-TRACE) MG/DL Urine Glucose (UA) (NEG) MG/DL Urine Ketones (NEG) MG/DL Urine Blood (NEG) Urine Nitrite (NEG) Ur Leukocyte Esterase (NEG) Urine RBC (0) /HPF Urine WBC (0-4) /HPF Ur Squamous Epith Cells /LPF Urine Bacteria /LPF Discharge Plan Discharge Clinical Impression: Kidney stone on right side Patient Disposition: Home, Self-Care Instructions: Kidney Stones (ED) Additional Instructions: Drink plenty of fluids take pain medication as advised follow-up with urologist Prescriptions: New tamsulosin [Flomax] 0.4 mg capsule 0.4 mg PO DAILY Qty: 7 RF: 0 hydromorphone [Dilaudid] 2 mg tablet 2 mg PO Q6H PRN (Reason: pain) Qty: 14 RF: 0 ondansetron 4 mg tablet,disintegrating 4 mg PO Q6-8H PRN (Reason: nausea and vomiting) Qty: 7 RF: 0 No Action prednisone 20 mg tablet 40 mg PO DAILY 4 Days Qty: 8 RF: 0 tramadol 50 mg tablet 50 mg PO Q6H PRN (Reason: pain) Qty: 20 RF: 0 albuterol sulfate 90 mcg/actuation HFA aerosol inhaler 2 puff inhalation Q6H PRN (Reason: shortness of breath or wheezing) Qty: 18 RF: 0 albuterol sulfate 1.25 mg/3 mL solution for nebulization 1.25 mg inhalation Q4-6H PRN (Reason: shortness of breath or wheezing) Qty: 75 RF: 0 prednisone 20 mg tablet 40 mg PO DAILY 5 Days Qty: 10 RF: 0 prednisone 20 mg tablet 60 mg PO DAILY 5 Days Qty: 15 RF: 0 doxycycline hyclate 100 mg tablet 100 mg PO Q12H 10 Days Qty: 20 RF: 0 metformin 500 mg tablet 500 mg PO BID 30 Days Qty: 60 RF: 0 albuterol sulfate 0.63 mg/3 mL solution for nebulization 0.63 mg inhalation QID PRN (Reason: shortness of breath or wheezing) Qty: 75 RF: 0 albuterol sulfate 90 mcg/actuation HFA aerosol inhaler 1 inh inhalation QID PRN (Reason: shortness of breath or wheezing) Qty: 8.5 RF: 0 ibuprofen 800 mg tablet 800 mg PO Q8H PRN (Reason: pain) Qty: 14 RF: 0 acetaminophen [Tylenol Extra Strength] 500 mg tablet 1,000 mg PO QID PRN (Reason: fever or pain) Qty: 14 RF: 0 doxycycline monohydrate 100 mg capsule 100 mg PO BID 10 Days Qty: 20 RF: 0 prednisone 20 mg tablet 40 mg PO DAILY 5 Days Qty: 10 RF: 0 (DME) blood-glucose meter [FreeStyle [place] Lite] Kit See Rx Instructions .ROUTE .MEDSUPPLY Qty: 1 RF: 0 (DME) FreeStyle Lite Strips Strip See Rx Instructions .ROUTE .MEDSUPPLY Qty: 100 RF: 0 (DME) lancets [FreeStyle Lancets] 28 gauge misc See Rx Instructions .ROUTE .MEDSUPPLY Qty: 100 RF: 0 Referrals: Tay Hi MD [Physician] - 2 days Interventions: ED Discharge Assessment Last Done: 12/10/20 20:48 Discharge Date/Time: 12/10/20 20:48 PMF Past Medical History Medical History Asthma delivery delivered Diabetes Fibromyalgia HTN (hypertension) Kidney infection Kidney stones Lupus Sciatica Surgical History H/O: hysterectomy Social History Social History Alcohol intake: never Substance Use Type: Marijuana Advance Directives: No Advance Directives Information Provided: No Patient : No
[2020-12-10 18:32] LABS: MANUAL DIFF FLAG NO
[2020-12-10 18:35] LABS: Basophils Percent Auto 0.3 % (0-2); Eosinophils Absolute Auto 0.2 X10*3/uL (0.0-0.4); Eosinophils Percent Auto 1.3 % (0-4); Hematocrit 42.8 % (37-47); Hemoglobin 14.9 g/dl (12.0-16.0); Imm Gran Abs Auto 0.08 X10*3/uL (0.00-0.03); Imm Gran Pct Auto 0.5 % (0.0-0.4); Lymphocytes Absolute Auto 2.3 X10*3/uL (1.2-4.9); Lymphocytes Percent Auto 14.3 % (20-40); Mean Corpuscular HGB Conc 34.8 g/dl (31.0-35.0); Mean Corpuscular Hemoglobin 30.1 pg (27.0-33.0); Mean Corpuscular Volume 86.5 fL (80-98); Mean Platelet Volume 9.6 fL (9.4-12.3); Monocytes Absolute Auto 1.2 X10*3/uL (0.1-1.2); Monocytes Percent Auto 7.3 % (2-11); Neutrophils Absolute Auto 12.1 X10*3/uL (2.0-8.3); Neutrophils Percent Auto 76.3 % (45-73); Platelet Count 329 X10*3/uL (160-400); Red Blood Count 4.95 X10*6/uL (4.20-5.50); Red Cell Distribution Width 13.5 % (11.0-16.0); White Blood Count 15.8 X10*3/uL (4.8-10.8)
[2020-12-10 18:53] LABS: Anion Gap 12 (12-20); Blood Urea Nitrogen 17 mg/dL (9-16); Calcium 9.6 mg/dL (8.4-10.2); Carbon Dioxide 26 mmol/L (22-29); Chloride 105 mmol/L (96-108); Creatinine Clr Calc Pharmacy 87.5; Estimated Glomerular Filt Rate > 60; Glucose Random 123 mg/dL (60-115); Potassium 4.1 mmol/L (3.3-5.1); Sodium 139 mmol/L (135-145)
[2020-12-10 18:59] LABS: Alanine Aminotransferase 40 U/L (0-31); Albumin Level 3.8 g/dL (3.5-5.0); Alkaline Phosphatase 119 U/L (39-117); Aspartate Amino Transferase 44 U/L (5-31); Bilirubin Direct < 0.2 mg/dL (0.0-0.5); Bilirubin Total 0.3 mg/dL (0.0-1.0); Lipase 28 U/L (8-78); Total Protein 6.8 g/dL (6.5-8.0)
[2020-12-10] MEDS: 0.9 % Sodium Chloride 1,000 ML 999 ML IVCONT (19:02)
[2020-12-10] MEDS: Tamsulosin HCL 0.4 MG CAPSULE PO (19:29)
[2020-12-10] MEDS: HYDROmorphone HCl 2 MG TABLET PO (19:42)
[2020-12-10 20:38] VITALS: BP 131/75; PULSE 83; RESP 20
== END 2020-12-10 20:48 | disposition home or self-care (01) ==
PROVIDERS: Emergency Provider Internal Medicine; PCP Nurse Practitioner Adult Health
DX: N20.0 Calculus of kidney (principal); M79.7 Fibromyalgia; F12.90 Cannabis use, unspecified, uncomplicated; Z79.899 Other long term (current) drug therapy
CPT/HCPCS: 36415; 74176; 80048; 80076; 81001; 81003; 83690; 85025; 96361; 96374; 96375; 96376; 99284; J1885; J2270; J2405

== ENCOUNTER 2020-12-26 04:51 | Emergency (ER) | payer OTHER, SELFPAY ==
[2020-12-26 04:57] VITALS: BP 169/92; PULSE 90; RESP 18; TEMP 36.1; O2SAT 98; BMI 38.0
--- NOTE | 2020-12-26 05:28 | ED_ITS ---
HPI - Abdominal Pain General Chief Complaint: Back Pain/Injury Stated Complaint: Back pain Time Seen by Provider: 12/26/20 05:27 Source: patient Mode of arrival: ambulatory Limitations: no limitations History of Present Illness HPI narrative: Patient's history of kidney stone was seen here 12/10 for 3 mm right proximal ureteric stone unable to follow-up with urologist still complaining of pain off and on got better initially no pain coming back with nausea and vomiting no hematuria no fever or chills Related Data Previous Rx's Medication Instructions Recorded albuterol sulfate 1.25 mg/3 mL 1.25 mg INHALATION Q4-6H PRN #75 ml 01/25/20 solution for nebulization albuterol sulfate 90 mcg/actuation 2 puff INHALATION Q6H PRN #18 g 01/25/20 aerosol inhaler prednisone 20 mg tablet 40 mg PO DAILY 5 Days #10 tab 02/15/20 prednisone 20 mg tablet 40 mg PO DAILY 4 Days #8 tab 03/10/20 doxycycline hyclate 100 mg tablet 100 mg PO Q12H 10 Days #20 tab 05/19/20 prednisone 20 mg tablet 60 mg PO DAILY 5 Days #15 tab 05/19/20 acetaminophen 500 mg tablet 1,000 mg PO QID PRN #14 tab 07/20/20 (Tylenol Extra Strength) albuterol sulfate 0.63 mg/3 mL 0.63 mg INHALATION QID PRN #75 ml 07/20/20 solution for nebulization albuterol sulfate 90 mcg/actuation 1 inh INHALATION QID PRN #8.5 g 07/20/20 aerosol inhaler blood sugar diagnostic (FreeStyle #100 ea 07/20/20 Lite Strips) blood-glucose meter (FreeStyle #1 ea 07/20/20 [place] Lite) doxycycline monohydrate 100 mg 100 mg PO BID 10 Days #20 cap 07/20/20 capsule ibuprofen 800 mg tablet 800 mg PO Q8H PRN #14 tab 07/20/20 lancets 28 gauge (FreeStyle #100 ea 07/20/20 Lancets) metformin 500 mg tablet 500 mg PO BID 30 Days #60 tab 07/20/20 prednisone 20 mg tablet 40 mg PO DAILY 5 Days #10 tab 07/20/20 tramadol 50 mg tablet 50 mg PO Q6H PRN #20 tab 08/18/20 hydromorphone 2 mg tablet 2 mg PO Q6H PRN #14 tab 12/10/20 (Dilaudid) ondansetron 4 mg disintegrating 4 mg PO Q6-8H PRN #7 tab 12/10/20 tablet tamsulosin 0.4 mg capsule (Flomax) 0.4 mg PO DAILY #7 cap 12/10/20 tamsulosin 0.4 mg capsule (Flomax) 0.4 mg PO DAILY #10 cap 12/26/20 Allergies Allergy/AdvReac Type Severity Reaction Status Date / Time hydrocodone [From VICODIN] Allergy Mild HIVES Verified 12/10/20 16:17 oxycodone [From PERCOCET] Allergy Mild HIVES Verified 12/10/20 16:17 azithromycin [AZITHROMYCIN] Allergy Unknown NAUSEA & Verified 12/10/20 16:17 VOMITING erythromycin base Allergy Unknown NAUSEA & Verified 12/10/20 16:17 [From ERYTHROCIN] VOMITING Review of Systems Review of Systems Yes all other systems are reviewed and are negative Physical Exam Vital Signs: Vital Signs: Last Vital Signs Temp 96.9 F 12/26/20 04:57 Pulse 74 12/26/20 06:00 Resp 16 12/26/20 06:00 BP 145/74 H 12/26/20 06:00 Pulse Ox 98 12/26/20 06:00 Body Mass Index 38.0 Appearance: Alert. Oriented X3. In moderate distress. Eyes: No pallor icterus ENT: Pharynx normal. Oral Mucosa moist Neck: Normal inspection. Neck supple. CVS: Normal heart rate and rhythm. Pulses normal. Respiratory: No respiratory distress. Equal air entry bilateral, no wheezing/rales/rhonchi Abdomen: Soft and nontender. Bowel sounds are present, no mass palpable, right CVA tenderness Skin: Skin warm and dry. Normal skin color. Normal skin turgor. Extremities: No lower extremity edema. Neuro: Oriented X 3. MDM - Abdominal Pain Lab Data Attestation: I reviewed the patient's lab results. Result diagrams: 12/26/20 05:40 12/26/20 05:40 Labs: Lab Results 12/26/20 12/26/20 12/26/20 Range/Units 05:40 05:40 06:43 WBC 11.2 H (4.8-10.8) X10*3/uL RBC 4.65 (4.20-5.50) X10*6/uL Hgb 13.8 (12.0-16.0) g/dl Hct 40.1 (37-47) % MCV 86.2 (80-98) fL MCH 29.7 (27.0-33.0) pg MCHC 34.4 (31.0-35.0) g/dl RDW 13.6 (11.0-16.0) % Plt Count 284 (160-400) X10*3/uL MPV 9.3 L (9.4-12.3) fL Immature Gran % (Auto) 0.7 H (0.0-0.4) % Neut % (Auto) 70.3 (45-73) % Lymph % (Auto) 19.8 L (20-40) % [place] % (Auto) 7.2 (2-11) % Eos % (Auto) 1.8 (0-4) % Baso % (Auto) 0.2 (0-2) % Lymph # (Auto) 2.2 (1.2-4.9) X10*3/uL [place] # (Auto) 0.8 (0.1-1.2) X10*3/uL Eos # (Auto) 0.2 (0.0-0.4) X10*3/uL Baso # (Auto) 0.0 (0.0-0.2) X10*3/uL Abs Immat Gran (auto) 0.08 H (0.00-0.03) X10*3/uL Absolute Neuts (auto) 7.9 (2.0-8.3) X10*3/uL Absolute Nucleated RBC 0.000 (0.0-0.012) X10*3/uL Nucleated RBC % (auto) 0.0 (0.0-0.2) /100WBC Sodium 138 (135-145) mmol/L Potassium 4.0 (3.3-5.1) mmol/L Chloride 101 (96-108) mmol/L Carbon Dioxide 29 (22-29) mmol/L Anion Gap 12 (12-20) BUN 18 H (9-16) mg/dL Creatinine 0.83 (0.5-1.4) mg/dL Estim Creat Clear Calc 101.2 Estimated GFR > 60 Random Glucose 169 H (60-115) mg/dL Calcium 9.0 D (8.4-10.2) mg/dL Urine Color YELLOW Urine Appearance CLEAR Urine pH 6.0 (5.0-8.0) Ur Specific [place] 1.010 (1.005-1.025) Urine Protein TRACE (NEG-TRACE) MG/DL Urine Glucose (UA) NEG (NEG) MG/DL Urine Ketones NEG (NEG) MG/DL Urine Blood 3+ H (NEG) Urine Nitrite NEG (NEG) Ur Leukocyte Esterase NEG (NEG) Urine RBC 30-49 H (0) /HPF Urine WBC 0-2 (0-4) /HPF Ur Squamous Epith Cells 1+ /LPF Urine Bacteria TRACE /LPF Urine Mucus TRACE /LPF Discharge Plan Discharge Clinical Impression: Renal colic on right side Patient Disposition: Home, Self-Care Instructions: Renal Colic (ED) Additional Instructions: Drink plenty of water Take pain medication as prescribed Flomax as prescribed Follow-up with urologist in 2 - 3 days Prescriptions: New tamsulosin [Flomax] 0.4 mg capsule 0.4 mg PO DAILY Qty: 10 RF: 0 No Action prednisone 20 mg tablet 40 mg PO DAILY 4 Days Qty: 8 RF: 0 tramadol 50 mg tablet 50 mg PO Q6H PRN (Reason: pain) Qty: 20 RF: 0 tamsulosin [Flomax] 0.4 mg capsule 0.4 mg PO DAILY Qty: 7 RF: 0 hydromorphone [Dilaudid] 2 mg tablet 2 mg PO Q6H PRN (Reason: pain) Qty: 14 RF: 0 ondansetron 4 mg tablet,disintegrating 4 mg PO Q6-8H PRN (Reason: nausea and vomiting) Qty: 7 RF: 0 albuterol sulfate 90 mcg/actuation HFA aerosol inhaler 2 puff inhalation Q6H PRN (Reason: shortness of breath or wheezing) Qty: 18 RF: 0 albuterol sulfate 1.25 mg/3 mL solution for nebulization 1.25 mg inhalation Q4-6H PRN (Reason: shortness of breath or wheezing) Qty: 75 RF: 0 prednisone 20 mg tablet 40 mg PO DAILY 5 Days Qty: 10 RF: 0 prednisone 20 mg tablet 60 mg PO DAILY 5 Days Qty: 15 RF: 0 doxycycline hyclate 100 mg tablet 100 mg PO Q12H 10 Days Qty: 20 RF: 0 metformin 500 mg tablet 500 mg PO BID 30 Days Qty: 60 RF: 0 albuterol sulfate 0.63 mg/3 mL solution for nebulization 0.63 mg inhalation QID PRN (Reason: shortness of breath or wheezing) Qty: 75 RF: 0 albuterol sulfate 90 mcg/actuation HFA aerosol inhaler 1 inh inhalation QID PRN (Reason: shortness of breath or wheezing) Qty: 8.5 RF: 0 ibuprofen 800 mg tablet 800 mg PO Q8H PRN (Reason: pain) Qty: 14 RF: 0 acetaminophen [Tylenol Extra Strength] 500 mg tablet 1,000 mg PO QID PRN (Reason: fever or pain) Qty: 14 RF: 0 doxycycline monohydrate 100 mg capsule 100 mg PO BID 10 Days Qty: 20 RF: 0 prednisone 20 mg tablet 40 mg PO DAILY 5 Days Qty: 10 RF: 0 (DME) blood-glucose meter [FreeStyle [place] Lite] Kit See Rx Instructions .ROUTE .MEDSUPPLY Qty: 1 RF: 0 (DME) FreeStyle Lite Strips Strip See Rx Instructions .ROUTE .MEDSUPPLY Qty: 100 RF: 0 (DME) lancets [FreeStyle Lancets] 28 gauge misc See Rx Instructions .ROUTE .MEDSUPPLY Qty: 100 RF: 0 PMFSH Past Medical History Medical History Asthma delivery delivered Diabetes Fibromyalgia HTN (hypertension) Kidney infection Kidney stones Lupus Sciatica Surgical History H/O: hysterectomy Social History Social History Alcohol intake: never Smoked in Last 30 Days: No Use of substances other than those prescribed or required for medical reasons: No Substance Use Type: Marijuana Advance Directives: No Advance Directives Information Provided: Yes Patient : No
[2020-12-26 05:41] VITALS: RESP 12
[2020-12-26] MEDS: Morphine Sulfate 4 MG/ML CARTRIDGE IVPUSH (05:41)
[2020-12-26] MEDS: ondansetron HCL 4 MG/2 ML VIAL IVPUSH (05:41)
[2020-12-26] MEDS: 0.9 % Sodium Chloride 1,000 ML 999 ML IVCONT (05:42)
[2020-12-26 05:45] LABS: Basophils Percent Auto 0.2 % (0-2); Eosinophils Absolute Auto 0.2 X10*3/uL (0.0-0.4); Eosinophils Percent Auto 1.8 % (0-4); Hematocrit 40.1 % (37-47); Hemoglobin 13.8 g/dl (12.0-16.0); Imm Gran Abs Auto 0.08 X10*3/uL (0.00-0.03); Imm Gran Pct Auto 0.7 % (0.0-0.4); Lymphocytes Absolute Auto 2.2 X10*3/uL (1.2-4.9); Lymphocytes Percent Auto 19.8 % (20-40); MANUAL DIFF FLAG NO; Mean Corpuscular HGB Conc 34.4 g/dl (31.0-35.0); Mean Corpuscular Hemoglobin 29.7 pg (27.0-33.0); Mean Corpuscular Volume 86.2 fL (80-98); Mean Platelet Volume 9.3 fL (9.4-12.3); Monocytes Absolute Auto 0.8 X10*3/uL (0.1-1.2); Monocytes Percent Auto 7.2 % (2-11); Neutrophils Absolute Auto 7.9 X10*3/uL (2.0-8.3); Neutrophils Percent Auto 70.3 % (45-73); Platelet Count 284 X10*3/uL (160-400); Red Blood Count 4.65 X10*6/uL (4.20-5.50); Red Cell Distribution Width 13.6 % (11.0-16.0); White Blood Count 11.2 X10*3/uL (4.8-10.8)
[2020-12-26 05:59] LABS: Anion Gap 12 (12-20); Blood Urea Nitrogen 18 mg/dL (9-16); Carbon Dioxide 29 mmol/L (22-29); Chloride 101 mmol/L (96-108); Creatinine Clr Calc Pharmacy 101.2; Estimated Glomerular Filt Rate > 60; Glucose Random 169 mg/dL (60-115); Sodium 138 mmol/L (135-145)
[2020-12-26 06:00] VITALS: BP 145/74; PULSE 74; RESP 16; O2SAT 98
[2020-12-26] MEDS: dexAMETHasone sod phosphate 4 MG/ML VIAL IVPUSH (06:40)
[2020-12-26] MEDS: Ketorolac Tromethamine 15 MG/ML VIAL IVPUSH (06:40)
[2020-12-26 06:47] LABS: Appearance Urine CLEAR; Color Urine YELLOW; Glucose Urine UA NEG (NEG); Leukocyte Esterase Urine NEG (NEG); Nitrite Urine NEG (NEG); UACC Culture Trigger NO; Urine Blood 3+ (NEG); Urine Ketones NEG (NEG); Urine Protein TRACE MG/DL (NEG-TRACE)
[2020-12-26 06:52] LABS: Bacteria Urine TRACE /LPF; Mucus Urine TRACE /LPF; RBC Urine 30-49 /HPF (0); Squamous Epithelial Cell Urine 1+ /LPF; WBC Urine 0-2 /HPF (0-4)
== END 2020-12-26 07:13 | disposition home or self-care (01) ==
PROVIDERS: Emergency Provider Internal Medicine
DX: N23 Unspecified renal colic (principal); M54.5 Low back pain; F12.90 Cannabis use, unspecified, uncomplicated; Z79.899 Other long term (current) drug therapy
CPT/HCPCS: 36415; 80048; 81001; 85025; 96361; 96374; 96375; 99284; J1100; J1885; J2270; J2405

== ENCOUNTER 2021-01-14 21:23 | Emergency (ER) | payer OTHER, SELFPAY ==
--- NOTE | ~2021-01-14 | XR_ITS ---
EXAMINATION: 1. RADIOGRAPHS CHEST 2. RADIOGRAPHS LUMBAR SPINE 3. RADIOGRAPHS LEFT KNEE CLINICAL INFORMATION: Pain after fall. COMPARISON: Chest x-ray August 18, [address] abdomen pelvis February 09, 2021 TECHNIQUE: 2 views of the chest, 3 views of the lumbar spine and 2 views of the left knee were obtained. FINDINGS: Chest: Cardiac silhouette is normal in size. The lungs are well aerated. There is no lobar consolidation. No pleural effusion or pneumothorax. Lumbar spine: 5 nonrib-bearing lumbar vertebral bodies are visualized. Vertebral body heights are maintained. Minimally decreased L5/S1 disc space height. Evidence of prior ventral abdominal hernia repair. Left knee: No fracture or dislocation. No suprapatellar joint effusion. No significant degenerative changes. No focal soft tissue swelling of the anterior knee. XR/XR knee LT 2V IMPRESSION: 1. No acute pulmonary pathology. 2. Minimal degenerative changes of the lower lumbar spine. 3. Unremarkable radiographs of the left knee.
--- NOTE | ~2021-01-14 | XR_ITS ---
EXAMINATION: 1. RADIOGRAPHS CHEST 2. RADIOGRAPHS LUMBAR SPINE 3. RADIOGRAPHS LEFT KNEE CLINICAL INFORMATION: Pain after fall. COMPARISON: Chest x-ray August 18, [address] abdomen pelvis February 09, 2021 TECHNIQUE: 2 views of the chest, 3 views of the lumbar spine and 2 views of the left knee were obtained. FINDINGS: Chest: Cardiac silhouette is normal in size. The lungs are well aerated. There is no lobar consolidation. No pleural effusion or pneumothorax. Lumbar spine: 5 nonrib-bearing lumbar vertebral bodies are visualized. Vertebral body heights are maintained. Minimally decreased L5/S1 disc space height. Evidence of prior ventral abdominal hernia repair. Left knee: No fracture or dislocation. No suprapatellar joint effusion. No significant degenerative changes. No focal soft tissue swelling of the anterior knee. XR/XR chest 2V IMPRESSION: 1. No acute pulmonary pathology. 2. Minimal degenerative changes of the lower lumbar spine. 3. Unremarkable radiographs of the left knee.
--- NOTE | ~2021-01-14 | XR_ITS ---
EXAMINATION: 1. RADIOGRAPHS CHEST 2. RADIOGRAPHS LUMBAR SPINE 3. RADIOGRAPHS LEFT KNEE CLINICAL INFORMATION: Pain after fall. COMPARISON: Chest x-ray August 18, [address] abdomen pelvis February 09, 2021 TECHNIQUE: 2 views of the chest, 3 views of the lumbar spine and 2 views of the left knee were obtained. FINDINGS: Chest: Cardiac silhouette is normal in size. The lungs are well aerated. There is no lobar consolidation. No pleural effusion or pneumothorax. Lumbar spine: 5 nonrib-bearing lumbar vertebral bodies are visualized. Vertebral body heights are maintained. Minimally decreased L5/S1 disc space height. Evidence of prior ventral abdominal hernia repair. Left knee: No fracture or dislocation. No suprapatellar joint effusion. No significant degenerative changes. No focal soft tissue swelling of the anterior knee. XR/XR lumbar spine 2-3V IMPRESSION: 1. No acute pulmonary pathology. 2. Minimal degenerative changes of the lower lumbar spine. 3. Unremarkable radiographs of the left knee.
[2021-01-14 21:48] VITALS: BP 147/93; PULSE 92; RESP 16; TEMP 36.9; O2SAT 97; BMI 38.0
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
[2021-01-15 00:32] VITALS: BP 181/84; PULSE 88; RESP 20; O2SAT 97
== END 2021-01-15 00:56 | disposition home or self-care (01) ==
PROVIDERS: Emergency Provider Emergency Medicine; PCP Nurse Practitioner Adult Health
DX: S39.012A Strain of muscle, fascia and tendon of lower back, initial encounter (principal); S80.212A Abrasion, left knee, initial encounter; R05.9 Cough, unspecified; E11.9 Type 2 diabetes mellitus without complications; I10 Essential (primary) hypertension; J45.909 Unspecified asthma, uncomplicated; X58.XXXA Exposure to other specified factors, initial encounter; Y93.16 Activity, rowing, canoeing, kayaking, rafting and tubing; Y92.9 Unspecified place or not applicable; Y99.9 Unspecified external cause status; Z79.84 Long term (current) use of oral hypoglycemic drugs; Z79.899 Other long term (current) drug therapy
CPT/HCPCS: 71046; 72100; 73560; 99283; 99284

== ENCOUNTER 2021-03-22 17:08 | Emergency (ER) | payer OTHER, SELFPAY ==
--- NOTE | ~2021-03-22 | XR_ITS ---
EXAMINATION: XR CHEST CLINICAL INFORMATION: Shortness of breath. COMPARISON: Most recent chest radiograph dated 01/14/2021. TECHNIQUE: Frontal view of the chest was obtained. FINDINGS: The lungs are clear. The cardiomediastinal silhouette is normal in size. There is no pleural effusion or pneumothorax. No acute osseous abnormality. XR/XR chest 1V IMPRESSION: No acute cardiopulmonary findings.
[2021-03-22 18:50] VITALS: BP 151/90; PULSE 99; RESP 20; TEMP 36.4; O2SAT 99; BMI 38.0
[2021-03-22 21:07] LABS: COVID-19 Test Negative (Negative)
--- NOTE | 2021-03-22 21:18 | ED.URI ---
HPI - URI/Sore Throat General Chief Complaint: Upper Respiratory Symptoms Stated Complaint: SOB/cough/loss of smell Time Seen by Provider: 03/22/21 21:17 Source: patient Mode of arrival: ambulatory History of Present Illness HPI Narrative: 40-year-old female with history of asthma and diabetes presents with shortness of breath, cough, every day smoker, nasal congestion, sore throat, increased fatigue states that she is not having any smell or taste and reports a recent COVID exposure. Patient states that she is vaccinated and has previously had COVID-19. Related Data Previous Rx's Medication Instructions Recorded albuterol sulfate 1.25 mg/3 mL 1.25 mg (3 mL) INHALATION Q4-6H 01/25/20 solution for nebulization PRN #75 ml albuterol sulfate 90 mcg/actuation 2 puff INHALATION Q6H PRN #18 g 01/25/20 aerosol inhaler prednisone 20 mg tablet 40 mg PO DAILY 5 Days #10 tab 02/15/20 prednisone 20 mg tablet 40 mg PO DAILY 4 Days #8 tab 03/10/20 doxycycline hyclate 100 mg tablet 100 mg PO Q12H 10 Days #20 tab 05/19/20 prednisone 20 mg tablet 60 mg PO DAILY 5 Days #15 tab 05/19/20 acetaminophen 500 mg tablet 1,000 mg PO QID PRN #14 tab 07/20/20 (Tylenol Extra Strength) albuterol sulfate 0.63 mg/3 mL 0.63 mg (3 mL) INHALATION QID PRN 07/20/20 solution for nebulization #75 ml albuterol sulfate 90 mcg/actuation 1 inh INHALATION QID PRN #8.5 g 07/20/20 aerosol inhaler blood sugar diagnostic (FreeStyle #100 ea 07/20/20 Lite Strips) blood-glucose meter (FreeStyle #1 ea 07/20/20 [place] Lite) doxycycline monohydrate 100 mg 100 mg PO BID 10 Days #20 cap 07/20/20 capsule ibuprofen 800 mg tablet 800 mg PO Q8H PRN #14 tab 07/20/20 lancets 28 gauge (FreeStyle #100 ea 07/20/20 Lancets) metformin 500 mg tablet 500 mg PO BID 30 Days #60 tab 07/20/20 prednisone 20 mg tablet 40 mg PO DAILY 5 Days #10 tab 07/20/20 tramadol 50 mg tablet 50 mg PO Q6H PRN #20 tab 08/18/20 hydromorphone 2 mg tablet 2 mg PO Q6H PRN #14 tab 12/10/20 (Dilaudid) ondansetron 4 mg disintegrating 4 mg PO Q6-8H PRN #7 tab 12/10/20 tablet tamsulosin 0.4 mg capsule (Flomax) 0.4 mg PO DAILY #7 cap 12/10/20 tamsulosin 0.4 mg capsule (Flomax) 0.4 mg PO DAILY #10 cap 12/26/20 cyclobenzaprine 10 mg tablet 10 mg PO TID PRN #14 tab 01/15/21 prednisone 20 mg tablet 40 mg PO DAILY 4 Days #8 tab 03/22/21 Allergies Allergy/AdvReac Type Severity Reaction Status Date / Time hydrocodone [From VICODIN] Allergy Mild HIVES Verified 03/22/21 18:49 oxycodone [From PERCOCET] Allergy Mild HIVES Verified 03/22/21 18:49 azithromycin [AZITHROMYCIN] Allergy Unknown NAUSEA & Verified 03/22/21 18:49 VOMITING erythromycin base Allergy Unknown NAUSEA & Verified 03/22/21 18:49 [From ERYTHROCIN] VOMITING Review of Systems Review of Systems: Pertinent positives and negatives as stated in HPI and 10 point review of systems is otherwise negative. [facility] Past Medical History Source: nursing notes reviewed Medical History Anxiety Asthma Bipolar 1 disorder delivery delivered Depression Diabetes Fibromyalgia HTN (hypertension) Hypertension Kidney infection Kidney stones Lupus Sciatica Sleep apnea Surgical History H/O: hysterectomy Social History Social History Alcohol intake: current Alcohol intake frequency: holidays/special occasions only Patient Tobacco Use Status: Never used Tobacco Substance Use Type: Marijuana Advance Directives: No Advance Directives Information Provided: Yes Patient : No Physical Exam Vital Signs: Vital Signs: Last Vital Signs Temp 97.5 F 03/22/21 18:50 Pulse 99 03/22/21 18:50 Resp 20 03/22/21 18:50 BP 151/90 H 03/22/21 18:50 Pulse Ox 99 03/22/21 18:50 BMI result Body Mass Index 38.0 VITAL SIGNS: Reviewed. GENERAL: Well developed, well nourished, in no acute distress. HEAD: Normocephalic/atraumatic EYES: PERRLA, EOMI OROPHARYNX: no oral lesions noted, posterior pharynx clear NECK: Supple, no adenopathy LUNGS: Normal breath sounds , trace expiratory wheeze, no tachypnea, no increased work of breathing. SpO2<99> CARDIOVASCULAR: Regular rate and rhythm without noted murmurs, no JVD or lower extremity edema. ABDOMEN: Soft, non-tender, non-distended with bowel sounds. No rigidity. No guarding. No palpable masses or hernias noted NEUROLOGIC: Alert and oriented x 4. Course Course Course Narrative: 40-year-old female with history and clinical presentation consistent with viral syndrome, but then complaining her asthma has been bothering her and then requesting a work note. Review of all investigations negative for acute findings, patient does have cough and since she reports a positive COVID-19 exposure she will be instructed to self quarantine until repeating COVID-19 testing. MDM - URI/Sore Throat Lab Data Labs: Lab Results 03/22/21 Range/Units 20:44 COVID-19 ([facility]ZA) Negative (Negative) COVID-19 Clin Com See Note Discharge Plan Discharge Clinical Impression: Close exposure to COVID-19 virus, Asthma, Cough Patient Disposition: Home, Self-Care Instructions: Antitussives (By mouth), Asthma (ED), Chronic Cough (ED), COVID-19 (Coronavirus Disease 2019) (ED) Additional Instructions: 1. Since you have reported a positive COVID-19 exposure and your coming in with viral symptoms your being recommended to self quarantine until you repeat COVID-19 testing in 3-4 days. 2. You are also being placed on a short course of steroids for your cough, asthma and you should be aware that the steroids will increase your sugar levels, your blood pressure and you should check your sugar levels more frequently and be cautious with your meal intakes. 3. Your recommended to follow-up with your primary care provider via telemedicine for re-evaluation and further guidance. Return to the ER for worsening symptoms. Prescriptions: New prednisone 20 mg tablet 40 mg PO DAILY 4 Days Qty: 8 RF: 0 No Action prednisone 20 mg tablet 40 mg PO DAILY 4 Days Qty: 8 RF: 0 tramadol 50 mg tablet 50 mg PO Q6H PRN (Reason: pain) Qty: 20 RF: 0 tamsulosin [Flomax] 0.4 mg capsule 0.4 mg PO DAILY Qty: 7 RF: 0 hydromorphone [Dilaudid] 2 mg tablet 2 mg PO Q6H PRN (Reason: pain) Qty: 14 RF: 0 ondansetron 4 mg tablet,disintegrating 4 mg PO Q6-8H PRN (Reason: nausea and vomiting) Qty: 7 RF: 0 tamsulosin [Flomax] 0.4 mg capsule 0.4 mg PO DAILY Qty: 10 RF: 0 albuterol sulfate 90 mcg/actuation HFA aerosol inhaler 2 puff inhalation Q6H PRN (Reason: shortness of breath or wheezing) Qty: 18 RF: 0 albuterol sulfate 1.25 mg/3 mL solution for nebulization 1.25 mg inhalation Q4-6H PRN (Reason: shortness of breath or wheezing) Qty: 75 RF: 0 prednisone 20 mg tablet 40 mg PO DAILY 5 Days Qty: 10 RF: 0 prednisone 20 mg tablet 60 mg PO DAILY 5 Days Qty: 15 RF: 0 doxycycline hyclate 100 mg tablet 100 mg PO Q12H 10 Days Qty: 20 RF: 0 metformin 500 mg tablet 500 mg PO BID 30 Days Qty: 60 RF: 0 albuterol sulfate 0.63 mg/3 mL solution for nebulization 0.63 mg inhalation QID PRN (Reason: shortness of breath or wheezing) Qty: 75 RF: 0 albuterol sulfate 90 mcg/actuation HFA aerosol inhaler 1 inh inhalation QID PRN (Reason: shortness of breath or wheezing) Qty: 8.5 RF: 0 ibuprofen 800 mg tablet 800 mg PO Q8H PRN (Reason: pain) Qty: 14 RF: 0 acetaminophen [Tylenol Extra Strength] 500 mg tablet 1,000 mg PO QID PRN (Reason: fever or pain) Qty: 14 RF: 0 doxycycline monohydrate 100 mg capsule 100 mg PO BID 10 Days Qty: 20 RF: 0 prednisone 20 mg tablet 40 mg PO DAILY 5 Days Qty: 10 RF: 0 (DME) blood-glucose meter [[place] Lite] Kit See Rx Instructions .ROUTE .MEDSUPPLY Qty: 1 RF: 0 (DME) FreeStyle Lite Strips Strip See Rx Instructions .ROUTE .MEDSUPPLY Qty: 100 RF: 0 (DME) lancets [FreeStyle Lancets] 28 gauge misc See Rx Instructions .ROUTE .MEDSUPPLY Qty: 100 RF: 0 cyclobenzaprine 10 mg tablet 10 mg PO TID PRN (Reason: muscle spasm) Qty: 14 RF: 0 Stand Alone Forms: Work/School Release
[2021-03-22] MEDS: Albuterol Sulfate 90 MCG 8 GM INHALER 4 PUFF INHALE (21:47)
[2021-03-22] MEDS: predniSONE 20 MG TABLET 40 MG PO (21:47)
== END 2021-03-22 21:48 | disposition home or self-care (01) ==
PROVIDERS: Emergency Provider Student in an Organized Health Care Education/Training Program
DX: R05.9 Cough, unspecified (principal); J45.909 Unspecified asthma, uncomplicated; E11.9 Type 2 diabetes mellitus without complications; I10 Essential (primary) hypertension; Z20.822 Contact with and (suspected) exposure to COVID-19
CPT/HCPCS: 36415; 71045; 87635; 99283; 99284

== ENCOUNTER 2021-06-08 07:29 | Emergency (ER) | payer OTHER, SELFPAY ==
[2021-06-08 07:38] VITALS: BP 152/91; PULSE 87; RESP 18; TEMP 36.3; O2SAT 98; BMI 38.0
--- NOTE | 2021-06-08 07:53 | ED_ITS ---
HPI - Nausea/Vomiting/Diarrhea General Chief complaint: Nausea/Vomiting/Diarrhea Stated complaint: possible food poisoning Time Seen by Provider: 06/08/21 07:50 Source: patient Mode of arrival: ambulatory Limitations: no limitations History of Present Illness MD elicited complaint: nausea, vomiting, diarrhea and abdominal pain Pertinent past history: other (family is sick after eating at [employer]) Onset (ago): day(s) (last night ) Description of vomiting: food contents Description of diarrhea: watery Associated nausea: Yes Associated abdominal pain: Yes Location of pain: diffuse Radiation: diffuse Pain consistency: intermittent Severity: mild Quality: cramping Exacerbating factors: eating Relieving factors: none Context: possible food poisoning and sick contacts Associated symptoms: headaches, malaise and nausea/vomiting Related Data Previous Rx's Medication Instructions Recorded albuterol sulfate 1.25 mg/3 mL 1.25 mg (3 mL) INHALATION Q4-6H 01/25/20 solution for nebulization PRN #75 ml albuterol sulfate 90 mcg/actuation 2 puff INHALATION Q6H PRN #18 g 01/25/20 aerosol inhaler prednisone 20 mg tablet 40 mg PO DAILY 5 Days #10 tab 02/15/20 prednisone 20 mg tablet 40 mg PO DAILY 4 Days #8 tab 03/10/20 doxycycline hyclate 100 mg tablet 100 mg PO Q12H 10 Days #20 tab 05/19/20 prednisone 20 mg tablet 60 mg PO DAILY 5 Days #15 tab 05/19/20 acetaminophen 500 mg tablet 1,000 mg PO QID PRN #14 tab 07/20/20 (Tylenol Extra Strength) albuterol sulfate 0.63 mg/3 mL 0.63 mg (3 mL) INHALATION QID PRN 07/20/20 solution for nebulization #75 ml albuterol sulfate 90 mcg/actuation 1 inh INHALATION QID PRN #8.5 g 07/20/20 aerosol inhaler blood sugar diagnostic (FreeStyle #100 ea 07/20/20 Lite Strips) blood-glucose meter (FreeStyle #1 ea 07/20/20 [place] Lite) doxycycline monohydrate 100 mg 100 mg PO BID 10 Days #20 cap 07/20/20 capsule ibuprofen 800 mg tablet 800 mg PO Q8H PRN #14 tab 07/20/20 lancets 28 gauge (FreeStyle #100 ea 07/20/20 Lancets) metformin 500 mg tablet 500 mg PO BID 30 Days #60 tab 07/20/20 prednisone 20 mg tablet 40 mg PO DAILY 5 Days #10 tab 07/20/20 tramadol 50 mg tablet 50 mg PO Q6H PRN #20 tab 08/18/20 hydromorphone 2 mg tablet 2 mg PO Q6H PRN #14 tab 12/10/20 (Dilaudid) ondansetron 4 mg disintegrating 4 mg PO Q6-8H PRN #7 tab 12/10/20 tablet tamsulosin 0.4 mg capsule (Flomax) 0.4 mg PO DAILY #7 cap 12/10/20 tamsulosin 0.4 mg capsule (Flomax) 0.4 mg PO DAILY #10 cap 12/26/20 cyclobenzaprine 10 mg tablet 10 mg PO TID PRN #14 tab 01/15/21 prednisone 20 mg tablet 40 mg PO DAILY 4 Days #8 tab 03/22/21 ondansetron 4 mg disintegrating 4 mg PO Q8H PRN #20 tab 06/08/21 tablet Allergies Allergy/AdvReac Type Severity Reaction Status Date / Time hydrocodone [From VICODIN] Allergy Mild HIVES Verified 06/08/21 07:36 oxycodone [From PERCOCET] Allergy Mild HIVES Verified 06/08/21 07:36 azithromycin [AZITHROMYCIN] Allergy Unknown NAUSEA & Verified 06/08/21 07:36 VOMITING erythromycin base Allergy Unknown NAUSEA & Verified 06/08/21 07:36 [From ERYTHROCIN] VOMITING Review of Systems Review of Systems: Constitutional : No Weight loss, No Fever, No Chills ENT/Mouth : No sore throat, No Rhinorrhea Eyes: No Swelling, No Redness Cardiovascular : No Chest Pain, No SOB, NoEdema Respiratory : No Cough, No Sputum, No Wheezing Gastrointestinal : Positive Nausea, Positive Vomiting, positive Diarrhea, positive abdominal Pain, No Hematochezia, No Melena Genitourinary : No Dysuria, No Urinary Frequency, No Hematuria, No Urgency Musculoskeletal : No joint pain, No Myalgias, No Joint Swelling Skin : No Skin Lesions, No rash Neuro : No Weakness, No Numbness, No Dizziness, pos Headache Psych : No Anxiety/Panic, No Depression Heme/Lymph: No Bruising, No Lymphadenopathy Endocrine : No Polyuria, No Polydipsia All other systems reviewed and are negative. Gastrointestinal: Gastrointestinal: Reports nausea PMFSH Past Medical History Attestation statement: The following information was validated with the patient. Medical History Anxiety Asthma Bipolar 1 disorder delivery delivered Depression Diabetes Fibromyalgia HTN (hypertension) Hypertension Kidney infection Kidney stones Lupus Sciatica Sleep apnea Surgical History H/O: hysterectomy Social History Social History Alcohol intake: never Patient Tobacco Use Status: Never used Tobacco Use of substances other than those prescribed or required for medical reasons: No Substance Use Type: Marijuana Advance Directives: No Advance Directives Information Provided: No Physical Exam Vital Signs: Vital Signs: Last Vital Signs Temp 97.3 F 06/08/21 07:38 Pulse 82 06/08/21 08:00 Resp 14 06/08/21 08:00 BP 147/79 H 06/08/21 08:00 Pulse Ox 97 06/08/21 08:00 BMI result Body Mass Index 38.0 Appearance: Alert. Oriented X3. No acute distress. Eyes: Pupils equal, round and reactive to light. ENT: Pharynx normal. Neck: Normal inspection. Neck supple. CVS: Normal heart rate and rhythm. Pulses normal. Respiratory: No respiratory distress. Breath sounds normal. Abdomen: Soft and nontender. Skin: Skin warm and dry. Normal skin color. Normal skin turgor. Extremities: No lower extremity edema. No calf ttp Neuro: Oriented X 3. No motor deficit. No sensory deficit. Course Course Course Narrative: feels better stable for DC MDM - Nausea/Vomiting/Diarrhea MDM Narrative Medical decision making narrative: 40 yo female with hx of migraines, DM here with c/o n/v/d abdominal cramps after eating [email or web address] - her family is all sick with similar symptoms at this time overall not toxic will need labs, hydration, nausea medications and toradol for her migraine - anticipate DC once she is improved Lab Data Result diagrams: 06/08/21 07:56 06/08/21 07:56 Labs: Lab Results 06/08/21 06/08/21 06/08/21 Range/Units 07:56 07:56 07:56 WBC 10.7 (4.8-10.8) X10*3/uL RBC 4.93 (4.20-5.50) X10*6/uL Hgb 14.6 (12.0-16.0) g/dl Hct 43.5 (37.0-47.0) % MCV 88.2 (80.0-98.0) fL MCH 29.6 (27.0-33.0) pg MCHC 33.6 (31.0-35.0) g/dl RDW 13.7 (11.0-16.0) % Plt Count 288 (160-400) X10*3/uL MPV 9.6 (9.4-12.3) fL Immature Gran % (Auto) 0.5 H (0.0-0.4) % Neut % (Auto) 71.9 (45-73) % Lymph % (Auto) 19.0 L (20-40) % [place] % (Auto) 6.2 (2-11) % Eos % (Auto) 2.1 (0-4) % Baso % (Auto) 0.3 (0-2) % Lymph # (Auto) 2.0 (1.2-4.9) X10*3/uL [place] # (Auto) 0.7 (0.1-1.2) X10*3/uL Eos # (Auto) 0.2 (0.0-0.4) X10*3/uL Baso # (Auto) 0.0 (0.0-0.2) X10*3/uL Abs Immat Gran (auto) 0.05 H (0.00-0.03) X10*3/uL Absolute Neuts (auto) 7.7 (2.0-8.3) x10*3/uL Absolute Nucleated RBC 0.000 (0.0-0.012) X10*3/uL Nucleated RBC % (auto) 0.0 (0.0-0.2) /100WBC Sodium 139 (135-145) mmol/L Potassium 4.0 (3.3-5.1) mmol/L Chloride 106 (96-108) mmol/L Carbon Dioxide 25 (22-29) mmol/L Anion Gap 12 (12-20) BUN 13 (9-16) mg/dL Creatinine 0.74 (0.5-1.4) mg/dL Estim Creat Clear Calc 113.5 Estimated GFR > 60 Random Glucose 240 H (60-115) mg/dL Calcium 8.8 (8.4-10.2) mg/dL Total Bilirubin < 0.2 (0.0-1.0) mg/dL AST 30 (5-31) U/L ALT 36 H (0-31) U/L Alkaline Phosphatase 139 H (39-117) U/L Total Protein 6.5 (6.5-8.0) g/dL Albumin 3.7 (3.5-5.0) g/dL Urine Color YELLOW Urine Appearance CLEAR Urine pH 7.5 (5.0-8.0) Ur Specific [place] 1.010 (1.005-1.025) Urine Protein 1+ H (NEG-TRACE) MG/DL Urine Glucose (UA) 500 H (NEG) MG/DL Urine Ketones NEG (NEG) MG/DL Urine Blood NEG (NEG) Urine Nitrite NEG (NEG) Ur Leukocyte Esterase NEG (NEG) Urine RBC 0-2 (0) /HPF Urine WBC 0 (0-4) /HPF Ur Squamous Epith Cells TRACE /LPF Urine Bacteria NONE /LPF Discharge Plan Discharge Clinical Impression: Vomiting, Food poisoning, Diarrhea Patient Disposition: Home, Self-Care Instructions: Acute Nausea and Vomiting (ED), Acute Diarrhea (ED), Food Poisoning (ED) Additional Instructions: return to ED for any worsening symptoms or concerns Prescriptions: New ondansetron 4 mg tablet,disintegrating 4 mg PO Q8H PRN (Reason: nausea and vomiting) Qty: 20 0RF No Action prednisone 20 mg tablet 40 mg PO DAILY 4 Days Qty: 8 0RF tramadol 50 mg tablet 50 mg PO Q6H PRN (Reason: pain) Qty: 20 0RF tamsulosin [Flomax] 0.4 mg capsule 0.4 mg PO DAILY Qty: 7 0RF hydromorphone [Dilaudid] 2 mg tablet 2 mg PO Q6H PRN (Reason: pain) Qty: 14 0RF ondansetron 4 mg tablet,disintegrating 4 mg PO Q6-8H PRN (Reason: nausea and vomiting) Qty: 7 0RF tamsulosin [Flomax] 0.4 mg capsule 0.4 mg PO DAILY Qty: 10 0RF albuterol sulfate 90 mcg/actuation HFA aerosol inhaler 2 puff inhalation Q6H PRN (Reason: shortness of breath or wheezing) Qty: 18 0RF albuterol sulfate 1.25 mg/3 mL solution for nebulization 1.25 mg inhalation Q4-6H PRN (Reason: shortness of breath or wheezing) Qty: 75 0RF prednisone 20 mg tablet 40 mg PO DAILY 5 Days Qty: 10 0RF prednisone 20 mg tablet 60 mg PO DAILY 5 Days Qty: 15 0RF doxycycline hyclate 100 mg tablet 100 mg PO Q12H 10 Days Qty: 20 0RF metformin 500 mg tablet 500 mg PO BID 30 Days Qty: 60 0RF albuterol sulfate 0.63 mg/3 mL solution for nebulization 0.63 mg inhalation QID PRN (Reason: shortness of breath or wheezing) Qty: 75 0RF albuterol sulfate 90 mcg/actuation HFA aerosol inhaler 1 inh inhalation QID PRN (Reason: shortness of breath or wheezing) Qty: 8.5 0RF ibuprofen 800 mg tablet 800 mg PO Q8H PRN (Reason: pain) Qty: 14 0RF acetaminophen [Tylenol Extra Strength] 500 mg tablet 1,000 mg PO QID PRN (Reason: fever or pain) Qty: 14 0RF doxycycline monohydrate 100 mg capsule 100 mg PO BID 10 Days Qty: 20 0RF prednisone 20 mg tablet 40 mg PO DAILY 5 Days Qty: 10 0RF (DME) blood-glucose meter [FreeStyle [place] Lite] Kit See Rx Instructions .ROUTE .MEDSUPPLY Qty: 1 0RF Rx Instructions: As directed (DME) FreeStyle Lite Strips Strip See Rx Instructions .ROUTE .MEDSUPPLY Qty: 100 0RF Rx Instructions: As directed (DME) lancets [FreeStyle Lancets] 28 gauge misc See Rx Instructions .ROUTE .MEDSUPPLY Qty: 100 0RF Rx Instructions: As directed cyclobenzaprine 10 mg tablet 10 mg PO TID PRN (Reason: muscle spasm) Qty: 14 0RF prednisone 20 mg tablet 40 mg PO DAILY 4 Days Qty: 8 0RF Stand Alone Forms: Work/School Release
[2021-06-08 08:00] VITALS: BP 147/79; PULSE 82; RESP 14; O2SAT 97
[2021-06-08 08:00] LABS: MANUAL DIFF FLAG NO
[2021-06-08 08:02] LABS: Basophils Percent Auto 0.3 % (0-2); Eosinophils Absolute Auto 0.2 X10*3/uL (0.0-0.4); Eosinophils Percent Auto 2.1 % (0-4); Hematocrit 43.5 % (37.0-47.0); Hemoglobin 14.6 g/dl (12.0-16.0); Imm Gran Abs Auto 0.05 X10*3/uL (0.00-0.03); Imm Gran Pct Auto 0.5 % (0.0-0.4); Mean Corpuscular HGB Conc 33.6 g/dl (31.0-35.0); Mean Corpuscular Hemoglobin 29.6 pg (27.0-33.0); Mean Corpuscular Volume 88.2 fL (80.0-98.0); Mean Platelet Volume 9.6 fL (9.4-12.3); Monocytes Absolute Auto 0.7 X10*3/uL (0.1-1.2); Monocytes Percent Auto 6.2 % (2-11); Neutrophils Absolute Auto 7.7 x10*3/uL (2.0-8.3); Neutrophils Percent Auto 71.9 % (45-73); Platelet Count 288 X10*3/uL (160-400); Red Blood Count 4.93 X10*6/uL (4.20-5.50); Red Cell Distribution Width 13.7 % (11.0-16.0); White Blood Count 10.7 X10*3/uL (4.8-10.8)
[2021-06-08 08:04] LABS: Appearance Urine CLEAR; Color Urine YELLOW; Glucose Urine UA 500 MG/DL (NEG); Leukocyte Esterase Urine NEG (NEG); Nitrite Urine NEG (NEG); PH 7.5 (5.0-8.0); UACC Culture Trigger NO; Urine Blood NEG (NEG); Urine Ketones NEG (NEG); Urine Protein 1+ MG/DL (NEG-TRACE)
[2021-06-08] MEDS: Ketorolac Tromethamine 30 MG/ML VIAL IVPUSH (08:09)
[2021-06-08] MEDS: 0.9 % Sodium Chloride 1,000 ML 999 ML IV ×2 (08:09→09:34)
[2021-06-08] MEDS: ondansetron HCL 4 MG/2 ML VIAL IVPUSH (08:09)
[2021-06-08 08:15] LABS: RBC Urine 0-2 /HPF (0); Squamous Epithelial Cell Urine TRACE /LPF; WBC Urine 0 /HPF (0-4)
[2021-06-08 08:20] LABS: Alanine Aminotransferase 36 U/L (0-31); Albumin Level 3.7 g/dL (3.5-5.0); Alkaline Phosphatase 139 U/L (39-117); Anion Gap 12 (12-20); Aspartate Amino Transferase 30 U/L (5-31); Blood Urea Nitrogen 13 mg/dL (9-16); Calcium 8.8 mg/dL (8.4-10.2); Carbon Dioxide 25 mmol/L (22-29); Chloride 106 mmol/L (96-108); Creatinine Clr Calc Pharmacy 113.5; Estimated Glomerular Filt Rate > 60; Glucose Random 240 mg/dL (60-115); Sodium 139 mmol/L (135-145); Total Protein 6.5 g/dL (6.5-8.0)
[2021-06-08 08:28] LABS: Bilirubin Total < 0.2 mg/dL (0.0-1.0)
== END 2021-06-08 09:54 | disposition home or self-care (01) ==
LOC: HO.ED 08:35
PROVIDERS: Emergency Provider Emergency Medicine; PCP Nurse Practitioner Adult Health
DX: A05.9 Bacterial foodborne intoxication, unspecified (principal); R11.2 Nausea with vomiting, unspecified; Z79.899 Other long term (current) drug therapy
CPT/HCPCS: 36415; 80053; 81001; 81003; 85025; 96361; 96374; 96375; 99284; J1885; J2405

== ENCOUNTER 2021-06-29 14:01 | Emergency (ER) | payer OTHER, SELFPAY ==
--- NOTE | ~2021-06-29 | XR_ITS ---
EXAMINATION: XR CHEST CLINICAL INFORMATION: Cough. Shortness of breath. COMPARISON: Previous chest x-ray most recent March 2021 TECHNIQUE: 2 views of the chest were obtained. FINDINGS: The cardiac and mediastinal contours are stable. The lungs are clear. There is no pleural effusion or pneumothorax. There are degenerative changes of the spine. XR/XR chest 2V IMPRESSION: Unremarkable examination.
[2021-06-29 14:13] VITALS: BP 135/93; PULSE 96; RESP 19; TEMP 36.6; O2SAT 100; BMI 38.0
[2021-06-29 14:31] LABS: MANUAL DIFF FLAG NO
[2021-06-29 14:33] LABS: Basophils Percent Auto 0.2 % (0-2); Eosinophils Absolute Auto 0.2 X10*3/uL (0.0-0.4); Eosinophils Percent Auto 1.7 % (0-4); Hematocrit 41.7 % (37.0-47.0); Hemoglobin 14.3 g/dl (12.0-16.0); Imm Gran Abs Auto 0.04 X10*3/uL (0.00-0.03); Imm Gran Pct Auto 0.5 % (0.0-0.4); Lymphocytes Absolute Auto 1.6 X10*3/uL (1.2-4.9); Lymphocytes Percent Auto 18.6 % (20-40); Mean Corpuscular HGB Conc 34.3 g/dl (31.0-35.0); Mean Corpuscular Hemoglobin 29.5 pg (27.0-33.0); Mean Platelet Volume 9.6 fL (9.4-12.3); Monocytes Absolute Auto 0.6 X10*3/uL (0.1-1.2); Monocytes Percent Auto 6.9 % (2-11); Neutrophils Absolute Auto 6.3 x10*3/uL (2.0-8.3); Neutrophils Percent Auto 72.1 % (45-73); Platelet Count 264 X10*3/uL (160-400); Red Blood Count 4.85 X10*6/uL (4.20-5.50); Red Cell Distribution Width 13.7 % (11.0-16.0); White Blood Count 8.8 X10*3/uL (4.8-10.8)
[2021-06-29 15:03] LABS: Alanine Aminotransferase 37 U/L (0-31); Albumin Level 3.7 g/dL (3.5-5.0); Alkaline Phosphatase 104 U/L (39-117); Anion Gap 13 (12-20); Aspartate Amino Transferase 33 U/L (5-31); Bilirubin Direct 0.2 mg/dL (0.0-0.5); Bilirubin Total 0.4 mg/dL (0.0-1.0); Blood Urea Nitrogen 12 mg/dL (9-16); COVID-19 Test Negative (Negative); Calcium 9.2 mg/dL (8.4-10.2); Carbon Dioxide 26 mmol/L (22-29); Chloride 103 mmol/L (96-108); Creatinine Clr Calc Pharmacy 118.2; Estimated Glomerular Filt Rate > 60; Glucose Random 121 mg/dL (60-115); Lipase 22 U/L (8-78); Potassium 3.9 mmol/L (3.3-5.1); Sodium 138 mmol/L (135-145); Total Protein 6.4 g/dL (6.5-8.0)
[2021-06-29 15:06] LABS: Influenza A Negative (Negative); Influenza B2 Negative (Negative)
--- NOTE | 2021-06-29 19:20 | ED_ITS ---
HPI - General Adult General Chief complaint: General Medical Stated complaint: SOB/Covid+ Time Seen by Provider: 06/29/21 19:20 Source: patient Mode of arrival: ambulatory Limitations: no limitations History of Present Illness HPI narrative: Patient with history of asthma, sleep apnea anxiety smoker received COVID 19 vaccine Mismi last year as noted the booster been complaining of cough body aches subjective fever for last 3 days did home testing for COVID which was positive today and she came here. On arrival patient is saturating 96% at room air Related Data Previous Rx's Medication Instructions Recorded albuterol sulfate 1.25 mg/3 mL 1.25 mg (3 mL) INHALATION Q4-6H 01/25/20 solution for nebulization PRN #75 ml albuterol sulfate 90 mcg/actuation 2 puff INHALATION Q6H PRN #18 g 01/25/20 aerosol inhaler prednisone 20 mg tablet 40 mg PO DAILY 5 Days #10 tab 02/15/20 prednisone 20 mg tablet 40 mg PO DAILY 4 Days #8 tab 03/10/20 doxycycline hyclate 100 mg tablet 100 mg PO Q12H 10 Days #20 tab 05/19/20 prednisone 20 mg tablet 60 mg PO DAILY 5 Days #15 tab 05/19/20 acetaminophen 500 mg tablet 1,000 mg PO QID PRN #14 tab 07/20/20 (Tylenol Extra Strength) albuterol sulfate 0.63 mg/3 mL 0.63 mg (3 mL) INHALATION QID PRN 07/20/20 solution for nebulization #75 ml albuterol sulfate 90 mcg/actuation 1 inh INHALATION QID PRN #8.5 g 07/20/20 aerosol inhaler blood sugar diagnostic (FreeStyle #100 ea 07/20/20 Lite Strips) blood-glucose meter (FreeStyle #1 ea 07/20/20 [place] Lite) doxycycline monohydrate 100 mg 100 mg PO BID 10 Days #20 cap 07/20/20 capsule ibuprofen 800 mg tablet 800 mg PO Q8H PRN #14 tab 07/20/20 lancets 28 gauge (FreeStyle #100 ea 07/20/20 Lancets) metformin 500 mg tablet 500 mg PO BID 30 Days #60 tab 07/20/20 prednisone 20 mg tablet 40 mg PO DAILY 5 Days #10 tab 07/20/20 tramadol 50 mg tablet 50 mg PO Q6H PRN #20 tab 05/11/21 hydromorphone 2 mg tablet 2 mg PO Q6H PRN #14 tab 12/10/20 (Dilaudid) ondansetron 4 mg disintegrating 4 mg PO Q6-8H PRN #7 tab 12/10/20 tablet tamsulosin 0.4 mg capsule (Flomax) 0.4 mg PO DAILY #7 cap 12/10/20 tamsulosin 0.4 mg capsule (Flomax) 0.4 mg PO DAILY #10 cap 12/26/20 cyclobenzaprine 10 mg tablet 10 mg PO TID PRN #14 tab 01/15/21 prednisone 20 mg tablet 40 mg PO DAILY 4 Days #8 tab 03/22/21 ondansetron 4 mg disintegrating 4 mg PO Q8H PRN #20 tab 06/08/21 tablet albuterol sulfate 2.5 mg (3 mL) INHALATION Q4-6H PRN 06/29/21 #90 ml albuterol sulfate 90 mcg/actuation 2 puff INHALATION Q4-6H PRN #8.5 g 06/29/21 aerosol inhaler (ProAir HFA) codeine 10 mg-guaifenesin 100 mg/5 10 ml PO Q6H PRN #237 ml 06/29/21 mL oral liquid levofloxacin 500 mg tablet 500 mg PO DAILY 7 Days #7 tab 06/29/21 prednisone 20 mg tablet 40 mg PO DAILY #10 tab 06/29/21 Allergies Allergy/AdvReac Type Severity Reaction Status Date / Time hydrocodone [From VICODIN] Allergy Mild HIVES Verified 06/08/21 07:36 oxycodone [From PERCOCET] Allergy Mild HIVES Verified 06/08/21 07:36 azithromycin [AZITHROMYCIN] Allergy Unknown NAUSEA & Verified 06/08/21 07:36 VOMITING erythromycin base Allergy Unknown NAUSEA & Verified 06/08/21 07:36 [From ERYTHROCIN] VOMITING Review of Systems Review of Systems: Yes all other systems are reviewed and are negative PMFSH Past Medical History Medical History Anxiety Asthma Bipolar 1 disorder delivery delivered Depression Diabetes Fibromyalgia HTN (hypertension) Hypertension Kidney infection Kidney stones Lupus Sciatica Sleep apnea Surgical History H/O: hysterectomy Social History Social History Alcohol intake: never Patient Tobacco Use Status: Never used Tobacco Substance Use Type: Marijuana Advance Directives: No Advance Directives Information Provided: Yes Patient : No Physical Exam ED Vital Signs: Vital Signs - 24 hr 06/29/21 14:13 06/29/21 19:25 Temperature 98 F Pulse Rate 96 78 Respiratory Rate 19 18 Blood Pressure 135/93 H 121/58 L Pulse Oximetry 100 96 BMI result Body Mass Index 38.0 Appearance: Alert. Oriented X3. No acute distress. Eyes: PERRLA, No Nystagmus ENT: Pharynx normal. Oral Mucosa moist Neck: Normal inspection. Neck supple. CVS: Normal heart rate and rhythm. Pulses normal. Respiratory: No respiratory distress. Equal air entry bilateral, no wheezing/rales/rhonchi frequent cough Abdomen: Soft and nontender. Bowel sounds are present, no mass palpable, no CVA tenderness Skin: Skin warm and dry. Normal skin color. Normal skin turgor. Extremities: No lower extremity edema. No calf tenderness Neuro: Oriented X 3 Medical Decision Making MDM Narrative Medical decision making narrative: Patient states her COVID test was positive at home but here PCR test is negative. Patient also symptomatic for last 3 days likely test at home was falsely positive will discharge patient home on prednisone Levaquin and inhalers Lab Data Lab results reviewed: Yes I reviewed the patient's lab results. Result diagrams: 06/29/21 14:27 06/29/21 14:27 Labs: Lab Results 06/29/21 06/29/21 06/29/21 Range/Units 14:27 14:27 14:27 WBC 8.8 (4.8-10.8) X10*3/uL RBC 4.85 (4.20-5.50) X10*6/uL Hgb 14.3 (12.0-16.0) g/dl Hct 41.7 (37.0-47.0) % MCV 86.0 (80.0-98.0) fL MCH 29.5 (27.0-33.0) pg MCHC 34.3 (31.0-35.0) g/dl RDW 13.7 (11.0-16.0) % Plt Count 264 (160-400) X10*3/uL MPV 9.6 (9.4-12.3) fL Immature Gran % (Auto) 0.5 H (0.0-0.4) % Neut % (Auto) 72.1 (45-73) % Lymph % (Auto) 18.6 L (20-40) % [place] % (Auto) 6.9 (2-11) % Eos % (Auto) 1.7 (0-4) % Baso % (Auto) 0.2 (0-2) % Lymph # (Auto) 1.6 (1.2-4.9) X10*3/uL [place] # (Auto) 0.6 (0.1-1.2) X10*3/uL Eos # (Auto) 0.2 (0.0-0.4) X10*3/uL Baso # (Auto) 0.0 (0.0-0.2) X10*3/uL Abs Immat Gran (auto) 0.04 H (0.00-0.03) X10*3/uL Absolute Neuts (auto) 6.3 (2.0-8.3) x10*3/uL Absolute Nucleated RBC 0.000 (0.0-0.012) X10*3/uL Nucleated RBC % (auto) 0.0 (0.0-0.2) /100WBC Sodium 138 (135-145) mmol/L Potassium 3.9 (3.3-5.1) mmol/L Chloride 103 (96-108) mmol/L Carbon Dioxide 26 (22-29) mmol/L Anion Gap 13 (12-20) BUN 12 (9-16) mg/dL Creatinine 0.71 (0.5-1.4) mg/dL Estim Creat Clear Calc 118.2 Estimated GFR > 60 Random Glucose 121 H (60-115) mg/dL Calcium 9.2 (8.4-10.2) mg/dL Total Bilirubin 0.4 (0.0-1.0) mg/dL Direct Bilirubin 0.2 (0.0-0.5) mg/dL AST 33 H (5-31) U/L ALT 37 H (0-31) U/L Alkaline Phosphatase 104 D (39-117) U/L Total Protein 6.4 L (6.5-8.0) g/dL Albumin 3.7 (3.5-5.0) g/dL Lipase 22 (8-78) U/L COVID-19 (RAZA) (Negative) COVID-19 Clin Com Influenza Type A (FRANCIA) Negative (Negative) Influenza Type A (PCR) (Negative) Influenza Type B (FRANCIA) Negative (Negative) Influenza Type B (PCR) (Negative) Influenza A & B Note See Note RSV RNA Qual (PCR) (Negative) SARS-CoV-2 RNA (RT-PCR) (Negative) 06/29/21 06/29/21 Range/Units 14:27 19:36 WBC (4.8-10.8) X10*3/uL RBC (4.20-5.50) X10*6/uL Hgb (12.0-16.0) g/dl Hct (37.0-47.0) % MCV (80.0-98.0) fL MCH (27.0-33.0) pg MCHC (31.0-35.0) g/dl RDW (11.0-16.0) % Plt Count (160-400) X10*3/uL MPV (9.4-12.3) fL Immature Gran % (Auto) (0.0-0.4) % Neut % (Auto) (45-73) % Lymph % (Auto) (20-40) % [place] % (Auto) (2-11) % Eos % (Auto) (0-4) % Baso % (Auto) (0-2) % Lymph # (Auto) (1.2-4.9) X10*3/uL [place] # (Auto) (0.1-1.2) X10*3/uL Eos # (Auto) (0.0-0.4) X10*3/uL Baso # (Auto) (0.0-0.2) X10*3/uL Abs Immat Gran (auto) (0.00-0.03) X10*3/uL Absolute Neuts (auto) (2.0-8.3) x10*3/uL Absolute Nucleated RBC (0.0-0.012) X10*3/uL Nucleated RBC % (auto) (0.0-0.2) /100WBC Sodium (135-145) mmol/L Potassium (3.3-5.1) mmol/L Chloride (96-108) mmol/L Carbon Dioxide (22-29) mmol/L Anion Gap (12-20) BUN (9-16) mg/dL Creatinine (0.5-1.4) mg/dL Estim Creat Clear Calc Estimated GFR Random Glucose (60-115) mg/dL Calcium (8.4-10.2) mg/dL Total Bilirubin (0.0-1.0) mg/dL Direct Bilirubin (0.0-0.5) mg/dL AST (5-31) U/L ALT (0-31) U/L Alkaline Phosphatase (39-117) U/L Total Protein (6.5-8.0) g/dL Albumin (3.5-5.0) g/dL Lipase (8-78) U/L COVID-19 (RAZA) Negative (Negative) COVID-19 Clin Com See Note Influenza Type A (FRANCIA) (Negative) Influenza Type A (PCR) NEGATIVE (Negative) Influenza Type B (FRANCIA) (Negative) Influenza Type B (PCR) NEGATIVE (Negative) Influenza A & B Note RSV RNA Qual (PCR) NEGATIVE (Negative) SARS-CoV-2 RNA (RT-PCR) NEGATIVE (Negative) Discharge Plan Discharge Clinical Impression: Bronchitis Patient Disposition: Home, Self-Care Instructions: Acute Bronchitis (ED) Additional Instructions: Use inhaler/nebulizer treatment every 4-6 hours as needed Prednisone as advised Take antibiotic as prescribed Follow with PCP if not better Prescriptions: New prednisone 20 mg tablet 40 mg PO DAILY Qty: 10 0RF albuterol sulfate [ProAir HFA] 90 mcg/actuation HFA aerosol inhaler 2 puff inhalation Q4-6H PRN (Reason: Cough) Qty: 8.5 0RF albuterol sulfate 2.5 mg /3 mL (0.083 %) solution for nebulization 2.5 mg inhalation Q4-6H PRN (Reason: shortness of breath or wheezing) Qty: 90 0RF codeine-guaifenesin 10-100 mg/5 mL liquid 10 ml PO Q6H PRN (Reason: cough) Qty: 237 0RF levofloxacin 500 mg tablet 500 mg PO DAILY 7 Days Qty: 7 0RF No Action prednisone 20 mg tablet 40 mg PO DAILY 4 Days Qty: 8 0RF tramadol 50 mg tablet 50 mg PO Q6H PRN (Reason: pain) Qty: 20 0RF tamsulosin [Flomax] 0.4 mg capsule 0.4 mg PO DAILY Qty: 7 0RF hydromorphone [Dilaudid] 2 mg tablet 2 mg PO Q6H PRN (Reason: pain) Qty: 14 0RF ondansetron 4 mg tablet,disintegrating 4 mg PO Q6-8H PRN (Reason: nausea and vomiting) Qty: 7 0RF tamsulosin [Flomax] 0.4 mg capsule 0.4 mg PO DAILY Qty: 10 0RF albuterol sulfate 90 mcg/actuation HFA aerosol inhaler 2 puff inhalation Q6H PRN (Reason: shortness of breath or wheezing) Qty: 18 0RF albuterol sulfate 1.25 mg/3 mL solution for nebulization 1.25 mg inhalation Q4-6H PRN (Reason: shortness of breath or wheezing) Qty: 75 0RF prednisone 20 mg tablet 40 mg PO DAILY 5 Days Qty: 10 0RF prednisone 20 mg tablet 60 mg PO DAILY 5 Days Qty: 15 0RF doxycycline hyclate 100 mg tablet 100 mg PO Q12H 10 Days Qty: 20 0RF metformin 500 mg tablet 500 mg PO BID 30 Days Qty: 60 0RF albuterol sulfate 0.63 mg/3 mL solution for nebulization 0.63 mg inhalation QID PRN (Reason: shortness of breath or wheezing) Qty: 75 0RF albuterol sulfate 90 mcg/actuation HFA aerosol inhaler 1 inh inhalation QID PRN (Reason: shortness of breath or wheezing) Qty: 8.5 0RF ibuprofen 800 mg tablet 800 mg PO Q8H PRN (Reason: pain) Qty: 14 0RF acetaminophen [Tylenol Extra Strength] 500 mg tablet 1,000 mg PO QID PRN (Reason: fever or pain) Qty: 14 0RF doxycycline monohydrate 100 mg capsule 100 mg PO BID 10 Days Qty: 20 0RF prednisone 20 mg tablet 40 mg PO DAILY 5 Days Qty: 10 0RF (DME) blood-glucose meter [[employer] Lite] Kit See Rx Instructions .ROUTE .MEDSUPPLY Qty: 1 0RF Rx Instructions: As directed (DME) FreeStyle Lite Strips Strip See Rx Instructions .ROUTE .MEDSUPPLY Qty: 100 0RF Rx Instructions: As directed (DME) lancets [FreeStyle Lancets] 28 gauge misc See Rx Instructions .ROUTE .MEDSUPPLY Qty: 100 0RF Rx Instructions: As directed ondansetron 4 mg tablet,disintegrating 4 mg PO Q8H PRN (Reason: nausea and vomiting) Qty: 20 0RF cyclobenzaprine 10 mg tablet 10 mg PO TID PRN (Reason: muscle spasm) Qty: 14 0RF prednisone 20 mg tablet 40 mg PO DAILY 4 Days Qty: 8 0RF Stand Alone Forms: Work/School Release Interventions: ED Discharge Assessment Last Done: 06/29/21 21:40 Discharge Date/Time: 06/29/21 21:41
[2021-06-29 19:25] VITALS: BP 121/58; PULSE 78; RESP 18; O2SAT 96
[2021-06-29] MEDS: guaiFEN/Codeine SF 200/20/10ML 10 ML LIQUID PO (19:38)
[2021-06-29 20:21] LABS: Influenza A PCR NEGATIVE (Negative); Influenza B PCR NEGATIVE (Negative); Resp Syncy Virus RNA Qual PCR NEGATIVE (Negative); SARS COV2 PCR INHOUSE NEGATIVE (Negative)
[2021-06-29] MEDS: levoFLOXacin 500 MG TABLET PO (21:36)
[2021-06-29] MEDS: predniSONE 20 MG TABLET 40 MG PO (21:36)
== END 2021-06-29 21:41 | disposition home or self-care (01) ==
PROVIDERS: Emergency Provider Internal Medicine; PCP Nurse Practitioner Adult Health
DX: J40 Bronchitis, not specified as acute or chronic (principal); Z20.822 Contact with and (suspected) exposure to COVID-19
CPT/HCPCS: 0241U; 36415; 71046; 80048; 80076; 83690; 85025; 87502; 87635; 99283

== ENCOUNTER 2021-08-07 14:20 | Emergency (ER) | payer OTHER, SELFPAY ==
--- NOTE | ~2021-08-07 | XR_ITS ---
EXAMINATION: XR HIP, RIGHT CLINICAL INFORMATION: Unable to bear weight. COMPARISON: CT scan of the abdomen and pelvis dated 12/10/2020. TECHNIQUE: Two views of the right hip. FINDINGS: Minimal bilateral hip degenerative joint changes are seen in the superior aspect of the joint spaces with mild pincer femoroacetabular impingement bilaterally. There is no acute fracture or dislocation. The soft tissues are unremarkable. XR/XR hip RT w PEL1V IMPRESSION: Minimal bilateral hip degenerative joint changes suggesting osteoarthritis with mild bilateral pincer femoroacetabular impingement. These findings are similar to the previous CT scan. No acute abnormality.
--- NOTE | ~2021-08-07 | XR_ITS ---
EXAMINATION: XR LUMBOSACRAL SPINE CLINICAL INFORMATION: Unable to bear weight. COMPARISON: 01/14/2021 lumbar spine radiographs. TECHNIQUE: Three views of the lumbosacral spine. FINDINGS: The vertebral bodies and posterior elements are normal. The disc spaces are preserved and the vertebral alignment is normal. The paraspinal soft tissues are normal. Mesh anchors overlie the mid abdomen. XR/XR lumbar spine 2-3V IMPRESSION: Unremarkable lumbar spine.
[2021-08-07 14:23] VITALS: BP 156/100; PULSE 93; TEMP 36.8; O2SAT 98; BMI 38.0
--- NOTE | 2021-08-07 15:00 | ED_ITS ---
HPI - Extremity Injury (Lower) General Chief Complaint: Extremity Injury, Lower Stated Complaint: r hip pain Time Seen by Provider: 08/07/21 14:36 Source: patient Mode of arrival: ambulatory Limitations: no limitations History of Present Illness HPI Narrative: 40 y/o femlae iwth history of anxiety, depression, bipolar, PTSD, kidney stones, fibromyalgia, HTN and lupus who presents to the ER with acute onset of right hip pain that started last night while adjusting her positioning while sitting on a bar stool. She reports after sitting on the stool for 2 hours she went to adjust herself and heard and felt a pop in the right hip with immediate pain. She was able to slowly ambulate out of the restaurant but had worsening pain today when trying to walk through the grocery store. She reports severe pain with any movement of the right leg or when putting pressure on the right foot. She denies any numbness or tingling, just severe shooting pain with movement. MD complaint: hip injury Onset (ago): day(s) (1) Injury: Right: hip Type of Injury: unknown Place: other Severity: severe Severity scale (1-10): 10 Relieving factors: NSAID, immobilization and rest Exacerbating factors: weight bearing, movement and palpation Associated symptoms: snap/pop sensation and unable to bear weight Other symptoms: none Treatments prior to arrival: NSAIDS Related Data Previous Rx's Medication Instructions Recorded albuterol sulfate 1.25 mg/3 mL 1.25 mg (3 mL) INHALATION Q4-6H 01/25/20 solution for nebulization PRN #75 ml albuterol sulfate 90 mcg/actuation 2 puff INHALATION Q6H PRN #18 g 01/25/20 aerosol inhaler prednisone 20 mg tablet 40 mg PO DAILY 5 Days #10 tab 02/15/20 prednisone 20 mg tablet 40 mg PO DAILY 4 Days #8 tab 03/10/20 doxycycline hyclate 100 mg tablet 100 mg PO Q12H 10 Days #20 tab 05/19/20 prednisone 20 mg tablet 60 mg PO DAILY 5 Days #15 tab 05/19/20 acetaminophen 500 mg tablet 1,000 mg PO QID PRN #14 tab 07/20/20 (Tylenol Extra Strength) albuterol sulfate 0.63 mg/3 mL 0.63 mg (3 mL) INHALATION QID PRN 07/20/20 solution for nebulization #75 ml albuterol sulfate 90 mcg/actuation 1 inh INHALATION QID PRN #8.5 g 07/20/20 aerosol inhaler blood sugar diagnostic (FreeStyle #100 ea 07/20/20 Lite Strips) blood-glucose meter (FreeStyle #1 ea 07/20/20 [place] Lite) doxycycline monohydrate 100 mg 100 mg PO BID 10 Days #20 cap 07/20/20 capsule ibuprofen 800 mg tablet 800 mg PO Q8H PRN #14 tab 07/20/20 lancets 28 gauge (FreeStyle #100 ea 07/20/20 Lancets) metformin 500 mg tablet 500 mg PO BID 30 Days #60 tab 07/20/20 prednisone 20 mg tablet 40 mg PO DAILY 5 Days #10 tab 07/20/20 tramadol 50 mg tablet 50 mg PO Q6H PRN #20 tab 08/18/20 hydromorphone 2 mg tablet 2 mg PO Q6H PRN #14 tab 12/10/20 (Dilaudid) ondansetron 4 mg disintegrating 4 mg PO Q6-8H PRN #7 tab 12/10/20 tablet tamsulosin 0.4 mg capsule (Flomax) 0.4 mg PO DAILY #7 cap 12/10/20 tamsulosin 0.4 mg capsule (Flomax) 0.4 mg PO DAILY #10 cap 12/26/20 cyclobenzaprine 10 mg tablet 10 mg PO TID PRN #14 tab 01/15/21 prednisone 20 mg tablet 40 mg PO DAILY 4 Days #8 tab 03/22/21 ondansetron 4 mg disintegrating 4 mg PO Q8H PRN #20 tab 06/08/21 tablet albuterol sulfate 2.5 mg (3 mL) INHALATION Q4-6H PRN 06/29/21 #90 ml albuterol sulfate 90 mcg/actuation 2 puff INHALATION Q4-6H PRN #8.5 g 06/29/21 aerosol inhaler (ProAir HFA) codeine 10 mg-guaifenesin 100 mg/5 10 ml PO Q6H PRN #237 ml 06/29/21 mL oral liquid levofloxacin 500 mg tablet 500 mg PO DAILY 7 Days #7 tab 06/29/21 prednisone 20 mg tablet 40 mg PO DAILY #10 tab 06/29/21 cyclobenzaprine 10 mg tablet 10 mg PO TID PRN #14 tab 04/30/22 hydromorphone 2 mg tablet 2 mg PO Q6H PRN #6 tab 08/07/21 (Dilaudid) ibuprofen 600 mg tablet 600 mg PO Q8H PRN #20 tab 08/07/21 Allergies Allergy/AdvReac Type Severity Reaction Status Date / Time hydrocodone [From VICODIN] Allergy Mild HIVES Verified 08/07/21 14:28 oxycodone [From PERCOCET] Allergy Mild HIVES Verified 08/07/21 14:28 azithromycin [AZITHROMYCIN] Allergy Unknown NAUSEA & Verified 08/07/21 14:28 VOMITING erythromycin base Allergy Unknown NAUSEA & Verified 08/07/21 14:28 [From ERYTHROCIN] VOMITING Review of Systems Review of Systems: Constitutional: No Fever, No Chills Cardiovascular: No Chest Pain, No SOB Gastrointestinal: No Nausea, No Vomiting, No abdominal Pain Musculoskeletal: + joint pain, No Myalgias Skin: No Skin Lesions, No rash Neuro: No Weakness, + Numbness, No Dizziness, No Headache Psych: + Anxiety/Panic, No Depression Heme/Lymph: No Bruising, No Lymphadenopathy PMFSH Past Medical History Medical History Anxiety Asthma Bipolar 1 disorder delivery delivered Depression Diabetes Fibromyalgia HTN (hypertension) Hypertension Kidney infection Kidney stones Lupus Sciatica Sleep apnea Surgical History H/O: hysterectomy Social History Social History Alcohol intake: never Patient Tobacco Use Status: Never used Tobacco Substance Use Type: Marijuana Advance Directives: Yes Advance Directives Information Provided: No Advance Directives on File: No Patient : No Physical Exam Vital Signs: Vital Signs: Last Vital Signs Temp 98.2 F 08/07/21 14:23 Pulse 93 08/07/21 14:23 Resp 18 08/07/21 15:17 BP 156/100 H 08/07/21 14:23 Pulse Ox 98 08/07/21 14:23 BMI result Body Mass Index 38.0 Appearance: Alert. Oriented X3. No acute distress. HEENT: normal inspection CVS: Normal heart rate and rhythm. Pulses normal. Respiratory: No respiratory distress. Skin: Skin warm and dry. Normal skin color. Normal skin turgor. No rashes. Extremities: normal inspection of the right lower extremity. tenderness of the entire right hip joint with decreased active and passive ROM due to pain. no erythema or warmth. NV intact distally. normal right knee and ankle. Neuro: Oriented X 3. No motor deficit. No sensory deficit. Gait not tested due to pain. Course Course Course Narrative: 40-year-old female presents to the ER with right hip pain after she felt a pop while adjusting in a bar stool last night. She reports significant pain with ambulation and movement of her right leg. X-ray of the hip and lower spine are pending. Intramuscular medications have been ordered. Will reassess her pain. Reevaluation(s) Reevaluation #1: X-ray showing osteoarthritis and bilateral femoacetabular impingement. results d/w patient. Will refer to ortho for further management, provide crutches and pain control. stable for d/c home. Critical Care Time Critical Care Time Critical Care Time: No Discharge Plan Discharge Clinical Impression: Acute hip pain Patient Disposition: Home, Self-Care Instructions: Hip Pain (ED) Additional Instructions: Your x-ray today showed minimal bilateral hip degenerative joint changes suggesting osteoarthritis with mild bilateral pincer femoracetabular impingement. Findings were similar to your previous CT scan. Rest your leg and elevate your leg when possible. Use ice several times per day for the next 48 hours. You may bear weight as tolerated. If pain is too severe, use crutches until better. Take the prescribed medications as directed. Follow up with your doctor and orthpedics - name and number below. If you develop new or worsening symptoms call 911 or come back to the ER for further evaluation. Prescriptions: New cyclobenzaprine 10 mg tablet 10 mg PO TID PRN (Reason: muscle spasm) Qty: 14 0RF ibuprofen 600 mg tablet 600 mg PO Q8H PRN (Reason: pain) Qty: 20 0RF hydromorphone [Dilaudid] 2 mg tablet 2 mg PO Q6H PRN (Reason: pain (scale score 7-10)) Qty: 6 0RF No Action prednisone 20 mg tablet 40 mg PO DAILY 4 Days Qty: 8 0RF tramadol 50 mg tablet 50 mg PO Q6H PRN (Reason: pain) Qty: 20 0RF tamsulosin [Flomax] 0.4 mg capsule 0.4 mg PO DAILY Qty: 7 0RF hydromorphone [Dilaudid] 2 mg tablet 2 mg PO Q6H PRN (Reason: pain) Qty: 14 0RF ondansetron 4 mg tablet,disintegrating 4 mg PO Q6-8H PRN (Reason: nausea and vomiting) Qty: 7 0RF tamsulosin [Flomax] 0.4 mg capsule 0.4 mg PO DAILY Qty: 10 0RF albuterol sulfate 90 mcg/actuation HFA aerosol inhaler 2 puff inhalation Q6H PRN (Reason: shortness of breath or wheezing) Qty: 18 0RF albuterol sulfate 1.25 mg/3 mL solution for nebulization 1.25 mg inhalation Q4-6H PRN (Reason: shortness of breath or wheezing) Qty: 75 0RF prednisone 20 mg tablet 40 mg PO DAILY 5 Days Qty: 10 0RF prednisone 20 mg tablet 60 mg PO DAILY 5 Days Qty: 15 0RF doxycycline hyclate 100 mg tablet 100 mg PO Q12H 10 Days Qty: 20 0RF metformin 500 mg tablet 500 mg PO BID 30 Days Qty: 60 0RF albuterol sulfate 0.63 mg/3 mL solution for nebulization 0.63 mg inhalation QID PRN (Reason: shortness of breath or wheezing) Qty: 75 0RF albuterol sulfate 90 mcg/actuation HFA aerosol inhaler 1 inh inhalation QID PRN (Reason: shortness of breath or wheezing) Qty: 8.5 0RF ibuprofen 800 mg tablet 800 mg PO Q8H PRN (Reason: pain) Qty: 14 0RF acetaminophen [Tylenol Extra Strength] 500 mg tablet 1,000 mg PO QID PRN (Reason: fever or pain) Qty: 14 0RF doxycycline monohydrate 100 mg capsule 100 mg PO BID 10 Days Qty: 20 0RF prednisone 20 mg tablet 40 mg PO DAILY 5 Days Qty: 10 0RF (DME) blood-glucose meter [FreeStyle [employer] Lite] Kit See Rx Instructions .ROUTE .MEDSUPPLY Qty: 1 0RF Rx Instructions: As directed (DME) FreeStyle Lite Strips Strip See Rx Instructions .ROUTE .MEDSUPPLY Qty: 100 0RF Rx Instructions: As directed (DME) lancets [FreeStyle Lancets] 28 gauge misc See Rx Instructions .ROUTE .MEDSUPPLY Qty: 100 0RF Rx Instructions: As directed ondansetron 4 mg tablet,disintegrating 4 mg PO Q8H PRN (Reason: nausea and vomiting) Qty: 20 0RF cyclobenzaprine 10 mg tablet 10 mg PO TID PRN (Reason: muscle spasm) Qty: 14 0RF prednisone 20 mg tablet 40 mg PO DAILY 4 Days Qty: 8 0RF prednisone 20 mg tablet 40 mg PO DAILY Qty: 10 0RF albuterol sulfate [ProAir HFA] 90 mcg/actuation HFA aerosol inhaler 2 puff inhalation Q4-6H PRN (Reason: Cough) Qty: 8.5 0RF albuterol sulfate 2.5 mg /3 mL (0.083 %) solution for nebulization 2.5 mg inhalation Q4-6H PRN (Reason: shortness of breath or wheezing) Qty: 90 0RF codeine-guaifenesin 10-100 mg/5 mL liquid 10 ml PO Q6H PRN (Reason: cough) Qty: 237 0RF levofloxacin 500 mg tablet 500 mg PO DAILY 7 Days Qty: 7 0RF Referrals: Magalie Pfeiffer PA-C [[facility] [employer] [employer] [facility]] - (right hip pain - XR w/ bilateral pincer femoroacetabular impingement & osteoarthritis)
[2021-08-07 15:17] VITALS: RESP 18
[2021-08-07] MEDS: HYDROmorphone HCl 1 MG/ML SYRINGE IM (15:17)
[2021-08-07] MEDS: Ketorolac Tromethamine 30 MG/ML VIAL IM (15:17)
== END 2021-08-07 16:25 | disposition home or self-care (01) ==
PROVIDERS: Emergency Provider Emergency Medicine; PCP Nurse Practitioner Adult Health
DX: M25.551 Pain in right hip (principal); I10 Essential (primary) hypertension; E11.9 Type 2 diabetes mellitus without complications; M32.9 Systemic lupus erythematosus, unspecified; J45.909 Unspecified asthma, uncomplicated
CPT/HCPCS: 72100; 73502; 96372; 99283; 99284; J1170; J1885

== ENCOUNTER 2021-08-16 09:15 | Emergency (ER) | payer OTHER, SELFPAY ==
--- NOTE | ~2021-08-16 | CT_ITS ---
EXAMINATION: CT ABDOMEN AND PELVIS WITHOUT CONTRAST CLINICAL INFORMATION: Left flank pain. History of stones. COMPARISON: CT of the abdomen and pelvis done on 12/10/2020 and available baseline study dated 07/18/2018. TECHNIQUE: Multidetector volumetric imaging was performed from the superior aspect of the liver through the pubic symphysis. Sagittal and coronal reformatted images were obtained on the technologist's workstation. This CT examination was performed using dose optimization techniques as appropriate, variously including the following: *Automated exposure control *Adjustment of mA and/or kV according to patient size (this includes techniques or standardized protocols for targeted exams where dose is matched to indication/reason for exam; i.e. extremities or head) *Use of iterative reconstruction technique DLP: 758 mGy-cm FINDINGS: LUNG BASES: The visualized lung bases are unremarkable. LIVER, GALLBLADDER, AND BILIARY TREE: There is a 3.8 cm maximum dimension circumscribed oval-shaped hypodense lesion identified along the subcapsular aspect of the segment 4 of left lobe of the liver, shows peripheral/rim calcifications (138:4) Hounsfield value of 21, shows interval increased by 0.4 cm since 07/18/2018, most consistent with relatively stable benign pathology. Underlying mild diffuse fatty infiltration is present, unchanged. The gallbladder is unremarkable with no evidence of radiopaque gallstones, gallbladder wall thickening, or obvious pericholecystic inflammatory changes. PANCREAS: Unremarkable. SPLEEN: Unremarkable. ADRENAL GLANDS: Unremarkable. KIDNEYS AND URETERS: The right kidney is normal in size, shape, and attenuation. No hydronephrosis, hydroureter, or calculi seen. No perinephric stranding. Specifically, previously documented right proximal ureteric obstructing calculus and proximal right-sided hydroureteronephrosis show interval resolution. Interval development of sub-5 mm nonobstructing radiopaque calculus is noted within the mid anterior calyx of the left kidney (303:4) with Hounsfield value of 385, and skin to stone distance of 12.5 cm. No evidence of any left-sided hydroureteronephrosis or perinephric stranding. BLADDER: Suboptimally distended, grossly unremarkable. GASTROINTESTINAL TRACT: Mild colonic diverticulosis without any CT features of superimposed acute diverticulitis. The appendix is visualized at right iliac fossa and is unremarkable (494:4). The small bowel loops are decompressed. Stomach is decompressed. ABDOMINAL WALL: Postsurgical changes of prior hernia repair is noted within the anterior abdominal wall around the umbilicus without any CT features of disease recurrence, unchanged. LYMPH NODES: Normal. VASCULAR: Mild diffuse atherosclerotic disease of the aorta and is branches without aneurysm formation. PELVIC VISCERA: Left adnexal hypodensity, likely represent enlarged follicle-containing left ovary. No significant change. There is no right-sided adnexal cyst or mass identified. The uterus is not visualized, presumably surgically absent. No evidence of any free fluid and/or free air. OSSEOUS STRUCTURES: No suspicious focal lesion. CT/CT abdomen pelvis wo con IMPRESSION: 1. Previously detected right proximal ureteric radiopaque calculus and proximal right-sided hydroureteronephrosis seen on the study dated 12/10/2020 shows interval resolution. Currently the right kidney, right renal collecting system including right ureter appear unremarkable. 2. Interval development of nonobstructing sub-5 mm radiopaque calculus is noted within the medial anterior calyx of the left kidney with Hounsfield value of 385 and skin to stone distance of 12.5 cm. No evidence of any left renal or ureteric obstruction. 3. Previously documented, clinically known stable mild diffuse hepatic steatosis and superimposed approximately 3.8 cm subcapsular oval-shaped hypodense lesion within segment 4 of left lobe of the liver associated with peripheral marginal calcification appears relatively stable available baseline study dated 07/18/2018, consistent with benign pathology. 4. Stable left adnexal hypodensity, likely represent enlarged follicle-containing otherwise normal-appearing left ovary showing no significant change since most recent prior study dated 12/10/2020. Fleischner guidelines were followed.
[2021-08-16 09:20] VITALS: BP 175/94; PULSE 89; RESP 18; TEMP 36.2; O2SAT 99; BMI 38.0
[2021-08-16 09:39] LABS: MANUAL DIFF FLAG NO
[2021-08-16 09:43] LABS: Basophils Percent Auto 0.3 % (0-2); Eosinophils Absolute Auto 0.2 X10*3/uL (0.0-0.4); Eosinophils Percent Auto 1.9 % (0-4); Hematocrit 44.3 % (37.0-47.0); Hemoglobin 14.9 g/dl (12.0-16.0); Imm Gran Abs Auto 0.05 X10*3/uL (0.00-0.03); Imm Gran Pct Auto 0.4 % (0.0-0.4); Lymphocytes Absolute Auto 2.3 X10*3/uL (1.2-4.9); Lymphocytes Percent Auto 19.3 % (20-40); Mean Corpuscular HGB Conc 33.6 g/dl (31.0-35.0); Mean Corpuscular Hemoglobin 29.6 pg (27.0-33.0); Mean Corpuscular Volume 87.9 fL (80.0-98.0); Mean Platelet Volume 9.8 fL (9.4-12.3); Monocytes Absolute Auto 0.8 X10*3/uL (0.1-1.2); Monocytes Percent Auto 6.5 % (2-11); Neutrophils Absolute Auto 8.5 x10*3/uL (2.0-8.3); Neutrophils Percent Auto 71.6 % (45-73); Platelet Count 306 X10*3/uL (160-400); Red Blood Count 5.04 X10*6/uL (4.20-5.50); Red Cell Distribution Width 14.2 % (11.0-16.0); White Blood Count 11.8 X10*3/uL (4.8-10.8)
[2021-08-16 09:55] LABS: Anion Gap 13 (12-20); Blood Urea Nitrogen 15 mg/dL (9-16); Calcium 9.4 mg/dL (8.4-10.2); Carbon Dioxide 24 mmol/L (22-29); Chloride 107 mmol/L (96-108); Creatinine Clr Calc Pharmacy 110.5; Estimated Glomerular Filt Rate > 60; Glucose Random 186 mg/dL (60-115); Potassium 4.5 mmol/L (3.3-5.1); Sodium 139 mmol/L (135-145)
[2021-08-16 10:53] LABS: Appearance Urine CLEAR; Color Urine YELLOW; Glucose Urine UA NEG (NEG); Leukocyte Esterase Urine NEG (NEG); Nitrite Urine NEG (NEG); PH 6.5 (5.0-8.0); Specific Gravity - Urine 1.015 (1.005-1.025); Urine Blood NEG (NEG); Urine Ketones NEG (NEG); Urine Protein TRACE MG/DL (NEG-TRACE)
[2021-08-16 11:05] LABS: Amorphous Sediment Urine TRACE /LPF; Bacteria Urine TRACE /LPF; Mucus Urine 1+ /LPF; RBC Urine 0-2 /HPF (0); Squamous Epithelial Cell Urine 2+ /LPF; WBC Urine 0-2 /HPF (0-4)
[2021-08-16] MEDS: Ketorolac Tromethamine 60 MG/2 ML VIAL IM (11:55)
--- NOTE | 2021-08-16 13:03 | ED.ABDPAIN ---
HPI - Abdominal Pain General Chief Complaint: Abdominal Pain Stated Complaint: L side pain when breathing Time Seen by Provider: 08/16/21 11:38 Source: patient Mode of arrival: ambulatory Limitations: no limitations History of Present Illness MD elicited complaint: abdominal pain and flank pain Pertinent past history: kidney stones Onset (ago): day(s) (2) Pain Consistency: constant Location: LLQ and L flank Severity: severe Pain scale (0-10): 10 Quality: stabbing, aching and sharp Radiation: suprapubic Migration to: no migration Exacerbating factors: nothing Relieving factors: nothing Associated symptoms: denies other symptoms Related Data Previous Rx's Medication Instructions Recorded albuterol sulfate 1.25 mg/3 mL 1.25 mg (3 mL) INHALATION Q4-6H 01/25/20 solution for nebulization PRN #75 ml albuterol sulfate 90 mcg/actuation 2 puff INHALATION Q6H PRN #18 g 01/25/20 aerosol inhaler prednisone 20 mg tablet 40 mg PO DAILY 5 Days #10 tab 02/15/20 prednisone 20 mg tablet 40 mg PO DAILY 4 Days #8 tab 03/10/20 doxycycline hyclate 100 mg tablet 100 mg PO Q12H 10 Days #20 tab 05/19/20 prednisone 20 mg tablet 60 mg PO DAILY 5 Days #15 tab 05/19/20 acetaminophen 500 mg tablet 1,000 mg PO QID PRN #14 tab 07/20/20 (Tylenol Extra Strength) albuterol sulfate 0.63 mg/3 mL 0.63 mg (3 mL) INHALATION QID PRN 07/20/20 solution for nebulization #75 ml albuterol sulfate 90 mcg/actuation 1 inh INHALATION QID PRN #8.5 g 07/20/20 aerosol inhaler blood sugar diagnostic (FreeStyle #100 ea 07/20/20 Lite Strips) blood-glucose meter (FreeStyle #1 ea 07/20/20 [place] Lite) doxycycline monohydrate 100 mg 100 mg PO BID 10 Days #20 cap 07/20/20 capsule ibuprofen 800 mg tablet 800 mg PO Q8H PRN #14 tab 07/20/20 lancets 28 gauge (FreeStyle #100 ea 07/20/20 Lancets) metformin 500 mg tablet 500 mg PO BID 30 Days #60 tab 07/20/20 prednisone 20 mg tablet 40 mg PO DAILY 5 Days #10 tab 07/20/20 tramadol 50 mg tablet 50 mg PO Q6H PRN #20 tab 08/18/20 hydromorphone 2 mg tablet 2 mg PO Q6H PRN #14 tab 12/10/20 (Dilaudid) ondansetron 4 mg disintegrating 4 mg PO Q6-8H PRN #7 tab 12/10/20 tablet tamsulosin 0.4 mg capsule (Flomax) 0.4 mg PO DAILY #7 cap 12/10/20 tamsulosin 0.4 mg capsule (Flomax) 0.4 mg PO DAILY #10 cap 12/26/20 cyclobenzaprine 10 mg tablet 10 mg PO TID PRN #14 tab 01/15/21 prednisone 20 mg tablet 40 mg PO DAILY 4 Days #8 tab 03/22/21 ondansetron 4 mg disintegrating 4 mg PO Q8H PRN #20 tab 06/08/21 tablet albuterol sulfate 2.5 mg (3 mL) INHALATION Q4-6H PRN 06/29/21 #90 ml albuterol sulfate 90 mcg/actuation 2 puff INHALATION Q4-6H PRN #8.5 g 06/29/21 aerosol inhaler (ProAir HFA) codeine 10 mg-guaifenesin 100 mg/5 10 ml PO Q6H PRN #237 ml 06/29/21 mL oral liquid levofloxacin 500 mg tablet 500 mg PO DAILY 7 Days #7 tab 06/29/21 prednisone 20 mg tablet 40 mg PO DAILY #10 tab 06/29/21 cyclobenzaprine 10 mg tablet 10 mg PO TID PRN #14 tab 08/07/21 hydromorphone 2 mg tablet 2 mg PO Q6H PRN #6 tab 08/07/21 (Dilaudid) ibuprofen 600 mg tablet 600 mg PO Q8H PRN #20 tab 08/07/21 ketorolac 10 mg tablet 10 mg PO Q8H PRN #14 tab 08/16/21 morphine 15 mg immediate release 15 mg PO Q12H PRN #14 tab 08/16/21 tablet ondansetron 4 mg disintegrating 4 mg PO Q6H #14 tab 08/16/21 tablet prednisone 20 mg tablet 20 mg PO DAILY 5 Days #5 tab 08/16/21 tamsulosin 0.4 mg capsule (Flomax) 0.4 mg PO DAILY 5 Days #5 cap 08/16/21 Allergies Allergy/AdvReac Type Severity Reaction Status Date / Time hydrocodone [From VICODIN] Allergy Mild HIVES Verified 08/07/21 14:28 oxycodone [From PERCOCET] Allergy Mild HIVES Verified 08/07/21 14:28 azithromycin [AZITHROMYCIN] Allergy Unknown NAUSEA & Verified 08/07/21 14:28 VOMITING erythromycin base Allergy Unknown NAUSEA & Verified 08/07/21 14:28 [From ERYTHROCIN] VOMITING Review of Systems Review of Systems Constitutional : No Fever, No Chills, No Night Sweats, No Fatigue, No Malaise Cardiovascular : No Chest Pain, No SOB Respiratory : No Cough, No Sputum, No Wheezing, No Dyspnea Gastrointestinal : + abdominal pain, No Nausea, No Vomiting, No Diarrhea, No Hematochezia, No Melena Genitourinary : No irregular bleeding, No Dysuria, No Urinary Frequency, No Hematuria,No Urinary Incontinence, No Urgency, No Flank Pain Musculoskeletal : No joint pain, No Myalgias, No Joint Swelling Skin : No Skin Lesions, No rash Neuro : No Weakness, No Numbness, No Paresthesias, No Loss of Consciousness, No Dizziness, No Headache Heme/Lymph: No Lymphadenopathy Endocrine : No Temperature Intolerance Yes all other systems are reviewed and are negative [facility] Past Medical History Attestation statement: The following information was validated with the patient. Medical History Anxiety Asthma Bipolar 1 disorder delivery delivered Depression Diabetes Fibromyalgia HTN (hypertension) Hypertension Kidney infection Kidney stones Lupus Sciatica Sleep apnea Surgical History H/O: hysterectomy Social History Social History Alcohol intake: never Patient Tobacco Use Status: Never used Tobacco Substance Use Type: Marijuana Advance Directives: No Advance Directives Information Provided: No Patient : No Physical Exam ED Vital Signs: Vital Signs - 24 hr 08/16/21 09:20 Temperature 97.1 F Pulse Rate 89 Respiratory Rate 18 Blood Pressure 175/94 H Pulse Oximetry 99 BMI result Body Mass Index 38.0 Vital signs reviewed and patient with an elevated blood pressure at 175/94. Pulse 89. Respiration 18. Temperature 97.1. Oxygen 99% on room air Appearance: Alert. Oriented X3. No acute distress. Head: Normal external exam. Normocephalic. Eyes: PERRLA. EOMI. Conjunctiva and sclera normal. Eyelids normal. ENT: Pharynx normal. Uvula midline. Moist mucous membranes. No trismus noted. No drooling noted. No muffled voice noted. Neck: Normal inspection. Neck supple. FROM. No adenopathy. No meningeal signs. CVS: Normal heart rate and rhythm. Heart sound normal. No murmurs noted. Pulses normal throughout. Respiratory: No respiratory distress. Painless inspiration. Breath sounds normal. No wheezes/rales/rhonchi noted. Chest nontender. No accessory muscle usage noted or decreased air movement noted. Abdomen: Soft and moderate tenderness palpation to the left flank/left lower quadrant with guarding Nondistended. No rigidity. Bowel sounds normal in all 4 quadrants. No distention noted. No organomegaly noted. No visible injury noted. No rebound tenderness. Negative Rovsing sign. Negative obturator's sign. Negative psoas sign. Negative Cunha sign. Back: + left CVA tenderness. No RCVAT. Full range of motion noted. Skin: Skin warm and dry. Normal skin color. Normal skin turgor. No rashes/lesions/lacerations noted. Extremities: Extremities exhibit normal range of motion. Extremities nontender. Neuro: Oriented X 3. No motor deficit. No sensory deficit. Reflexes normal. Normal steady gait. CN's II-XII intact bilaterally? Course Course Course Narrative: 40-year-old female presenting to the ED with complaints of 2 days of back/left flank/left lower quadrant abdominal pain and she has a history of kidney stones she reports that this feels like her kidney stones and she has had lithotripsy in the past. She denies any fevers or any nausea or vomiting or any other symptoms complaints or concerns at this time. Labs reviewed and patient an elevated white blood cell count at 11,000. Otherwise all other labs are within normal limits. UA revealed a trace of protein otherwise no evidence of UTI. CT scan abdomen pelvis without IV contrast revealed the kidney stone to the left kidney although no hydronephrosis or any acute other acute processes noted. Therefore I discussed this case with Dr. Hi he reported the patient is sterile she can be discharged home and patient does not want to be admitted due to I offered. She is allergic to oxycodone therefore we trialed Toradol, tramadol and no symptomatic relief therefore will DC home with a course of morphine as well and instructions to follow-up with Dr. Hi along with steroids and Flomax. Patient understands agrees with this plan. MDM - Abdominal Pain Medical Records Attestation: I reviewed the patient's medical records. Lab Data Attestation: I reviewed the patient's lab results. Result diagrams: 08/16/21 09:34 08/16/21 09:34 Labs: Lab Results 08/16/21 08/16/21 08/16/21 Range/Units 09:34 09:34 10:47 WBC 11.8 H (4.8-10.8) X10*3/uL RBC 5.04 (4.20-5.50) X10*6/uL Hgb 14.9 (12.0-16.0) g/dl Hct 44.3 (37.0-47.0) % MCV 87.9 (80.0-98.0) fL MCH 29.6 (27.0-33.0) pg MCHC 33.6 (31.0-35.0) g/dl RDW 14.2 (11.0-16.0) % Plt Count 306 (160-400) X10*3/uL MPV 9.8 (9.4-12.3) fL Immature Gran % (Auto) 0.4 (0.0-0.4) % Neut % (Auto) 71.6 (45-73) % Lymph % (Auto) 19.3 L (20-40) % [place] % (Auto) 6.5 (2-11) % Eos % (Auto) 1.9 (0-4) % Baso % (Auto) 0.3 (0-2) % Lymph # (Auto) 2.3 (1.2-4.9) X10*3/uL [place] # (Auto) 0.8 (0.1-1.2) X10*3/uL Eos # (Auto) 0.2 (0.0-0.4) X10*3/uL Baso # (Auto) 0.0 (0.0-0.2) X10*3/uL Abs Immat Gran (auto) 0.05 H (0.00-0.03) X10*3/uL Absolute Neuts (auto) 8.5 H (2.0-8.3) x10*3/uL Absolute Nucleated RBC 0.000 (0.0-0.012) X10*3/uL Nucleated RBC % (auto) 0.0 (0.0-0.2) /100WBC Sodium 139 (135-145) mmol/L Potassium 4.5 (3.3-5.1) mmol/L Chloride 107 (96-108) mmol/L Carbon Dioxide 24 (22-29) mmol/L Anion Gap 13 (12-20) BUN 15 (9-16) mg/dL Creatinine 0.76 (0.5-1.4) mg/dL Estim Creat Clear Calc 110.5 Estimated GFR > 60 Random Glucose 186 H (60-115) mg/dL Calcium 9.4 (8.4-10.2) mg/dL Urine Color YELLOW Urine Appearance CLEAR Urine pH 6.5 (5.0-8.0) Ur Specific [place] 1.015 (1.005-1.025) Urine Protein TRACE (NEG-TRACE) MG/DL Urine Glucose (UA) NEG (NEG) MG/DL Urine Ketones NEG (NEG) MG/DL Urine Blood NEG (NEG) Urine Nitrite NEG (NEG) Ur Leukocyte Esterase NEG (NEG) Urine RBC 0-2 (0) /HPF Urine WBC 0-2 (0-4) /HPF Ur Squamous Epith Cells 2+ /LPF Amorphous Sediment TRACE /LPF Urine Bacteria TRACE /LPF Urine Mucus 1+ /LPF Imaging Data CT scan abdomen pelvis without IV contrast: Attestation: I personally reviewed and interpreted this imaging study as follows: Radiologist's impression: FINDINGS: LUNG BASES: The visualized lung bases are unremarkable.? LIVER, GALLBLADDER, AND BILIARY TREE: There is a 3.8 cm maximum dimension circumscribed oval-shaped hypodense lesion identified along the subcapsular aspect of the segment 4 of left lobe of the liver, shows peripheral/rim calcifications (138:4) Hounsfield value of 21, shows interval increased by 0.4 cm since 07/18/2018, most consistent with relatively stable benign pathology. Underlying mild diffuse fatty infiltration is present, unchanged. ?The gallbladder is unremarkable with no evidence of radiopaque gallstones, gallbladder wall thickening, or obvious pericholecystic inflammatory changes.? PANCREAS: Unremarkable.? SPLEEN: Unremarkable.? ADRENAL GLANDS: Unremarkable.? KIDNEYS AND URETERS: The right kidney is normal in size, shape, and attenuation. No hydronephrosis, hydroureter, or calculi seen. No perinephric stranding.? Specifically, previously documented right proximal ureteric obstructing calculus and proximal right-sided hydroureteronephrosis show interval resolution. Interval development of sub-5 mm nonobstructing radiopaque calculus is noted within the mid anterior calyx of the left kidney (303:4) with Hounsfield value of 385, and skin to stone distance of 12.5 cm. No evidence of any left-sided hydroureteronephrosis or perinephric stranding. BLADDER: Suboptimally distended, grossly unremarkable.? GASTROINTESTINAL TRACT: Mild colonic diverticulosis without any CT features of superimposed acute diverticulitis. The appendix is visualized at right iliac fossa and is unremarkable (494:4). The small bowel loops are decompressed. Stomach is decompressed.? ABDOMINAL WALL: Postsurgical changes of prior hernia repair is noted within the anterior abdominal wall around the umbilicus without any CT features of disease recurrence, unchanged.? LYMPH NODES: Normal. VASCULAR: Mild diffuse atherosclerotic disease of the aorta and is branches without aneurysm formation. PELVIC VISCERA: Left adnexal hypodensity, likely represent enlarged follicle-containing left ovary. No significant change. There is no right-sided adnexal cyst or mass identified. The uterus is not visualized, presumably surgically absent. No evidence of any free fluid and/or free air. OSSEOUS STRUCTURES: No suspicious focal lesion.? CT/CT abdomen pelvis wo con IMPRESSION: ? 1. Previously detected right proximal ureteric radiopaque calculus and proximal right-sided hydroureteronephrosis seen on the study dated 12/10/2020 shows interval resolution. Currently the right kidney, right renal collecting system including right ureter appear unremarkable. 2. Interval development of nonobstructing sub-5 mm radiopaque calculus is noted within the medial anterior calyx of the left kidney with Hounsfield value of 385 and skin to stone distance of 12.5 cm. No evidence of any left renal or ureteric obstruction. 3. Previously documented, clinically known stable mild diffuse hepatic steatosis and superimposed approximately 3.8 cm subcapsular oval-shaped hypodense lesion within segment 4 of left lobe of the liver associated with peripheral marginal calcification appears relatively stable available baseline study dated 07/18/2018, consistent with benign pathology. 4. Stable left adnexal hypodensity, likely represent enlarged follicle-containing otherwise normal-appearing left ovary showing no significant change since most recent prior study dated 12/10/2020. ? Fleischner guidelines were followed. Critical Care Time Critical Care Time Critical Care Time: Yes Total Critical Care Time: 60 Attestation: I personally attest to this time spent taking care of the patient Discharge Plan Discharge Clinical Impression: Calculus of left kidney Patient Disposition: Home, Self-Care Instructions: Kidney Stones (ED) Prescriptions: New ketorolac 10 mg tablet 10 mg PO Q8H PRN (Reason: pain) Qty: 14 0RF Rx Instructions: First dose was given in the ED by IM and tolerated well tamsulosin [Flomax] 0.4 mg capsule 0.4 mg PO DAILY 5 Days Qty: 5 0RF prednisone 20 mg tablet 20 mg PO DAILY 5 Days Qty: 5 0RF ondansetron 4 mg tablet,disintegrating 4 mg PO Q6H Qty: 14 0RF morphine 15 mg tablet 15 mg PO Q12H PRN (Reason: severe kidney stones pain ) Qty: 14 0RF No Action prednisone 20 mg tablet 40 mg PO DAILY 4 Days Qty: 8 0RF tramadol 50 mg tablet 50 mg PO Q6H PRN (Reason: pain) Qty: 20 0RF tamsulosin [Flomax] 0.4 mg capsule 0.4 mg PO DAILY Qty: 7 0RF hydromorphone [Dilaudid] 2 mg tablet 2 mg PO Q6H PRN (Reason: pain) Qty: 14 0RF ondansetron 4 mg tablet,disintegrating 4 mg PO Q6-8H PRN (Reason: nausea and vomiting) Qty: 7 0RF tamsulosin [Flomax] 0.4 mg capsule 0.4 mg PO DAILY Qty: 10 0RF albuterol sulfate 90 mcg/actuation HFA aerosol inhaler 2 puff inhalation Q6H PRN (Reason: shortness of breath or wheezing) Qty: 18 0RF albuterol sulfate 1.25 mg/3 mL solution for nebulization 1.25 mg inhalation Q4-6H PRN (Reason: shortness of breath or wheezing) Qty: 75 0RF prednisone 20 mg tablet 40 mg PO DAILY 5 Days Qty: 10 0RF prednisone 20 mg tablet 60 mg PO DAILY 5 Days Qty: 15 0RF doxycycline hyclate 100 mg tablet 100 mg PO Q12H 10 Days Qty: 20 0RF metformin 500 mg tablet 500 mg PO BID 30 Days Qty: 60 0RF albuterol sulfate 0.63 mg/3 mL solution for nebulization 0.63 mg inhalation QID PRN (Reason: shortness of breath or wheezing) Qty: 75 0RF albuterol sulfate 90 mcg/actuation HFA aerosol inhaler 1 inh inhalation QID PRN (Reason: shortness of breath or wheezing) Qty: 8.5 0RF ibuprofen 800 mg tablet 800 mg PO Q8H PRN (Reason: pain) Qty: 14 0RF acetaminophen [Tylenol Extra Strength] 500 mg tablet 1,000 mg PO QID PRN (Reason: fever or pain) Qty: 14 0RF doxycycline monohydrate 100 mg capsule 100 mg PO BID 10 Days Qty: 20 0RF prednisone 20 mg tablet 40 mg PO DAILY 5 Days Qty: 10 0RF (DME) blood-glucose meter [FreeStyle [place] Lite] Kit See Rx Instructions .ROUTE .MEDSUPPLY Qty: 1 0RF Rx Instructions: As directed (DME) FreeStyle Lite Strips Strip See Rx Instructions .ROUTE .MEDSUPPLY Qty: 100 0RF Rx Instructions: As directed (DME) lancets [FreeStyle Lancets] 28 gauge misc See Rx Instructions .ROUTE .MEDSUPPLY Qty: 100 0RF Rx Instructions: As directed ondansetron 4 mg tablet,disintegrating 4 mg PO Q8H PRN (Reason: nausea and vomiting) Qty: 20 0RF cyclobenzaprine 10 mg tablet 10 mg PO TID PRN (Reason: muscle spasm) Qty: 14 0RF ibuprofen 600 mg tablet 600 mg PO Q8H PRN (Reason: pain) Qty: 20 0RF hydromorphone [Dilaudid] 2 mg tablet 2 mg PO Q6H PRN (Reason: pain (scale score 7-10)) Qty: 6 0RF cyclobenzaprine 10 mg tablet 10 mg PO TID PRN (Reason: muscle spasm) Qty: 14 0RF prednisone 20 mg tablet 40 mg PO DAILY 4 Days Qty: 8 0RF prednisone 20 mg tablet 40 mg PO DAILY Qty: 10 0RF albuterol sulfate [ProAir HFA] 90 mcg/actuation HFA aerosol inhaler 2 puff inhalation Q4-6H PRN (Reason: Cough) Qty: 8.5 0RF albuterol sulfate 2.5 mg /3 mL (0.083 %) solution for nebulization 2.5 mg inhalation Q4-6H PRN (Reason: shortness of breath or wheezing) Qty: 90 0RF codeine-guaifenesin 10-100 mg/5 mL liquid 10 ml PO Q6H PRN (Reason: cough) Qty: 237 0RF levofloxacin 500 mg tablet 500 mg PO DAILY 7 Days Qty: 7 0RF Referrals: Thu Gallardo, [employer] [Primary Care Provider] - 2 days Stand Alone Forms: Work/School Release
[2021-08-16] MEDS: traMADoL HCL 50 MG TABLET PO (13:42)
[2021-08-16] MEDS: Morphine Sulfate Immed Release 15 MG TABLET PO (14:33)
[2021-08-16] MEDS: predniSONE 20 MG TABLET PO (14:33)
[2021-08-16] MEDS: Tamsulosin HCL 0.4 MG CAPSULE 0.8 MG PO (14:34)
[2021-08-16 15:00] LABS: HCG Quantitative < 2 mIU/mL
[2021-08-16 15:26] VITALS: BP 138/90; PULSE 105; RESP 16; O2SAT 99
== END 2021-08-16 15:31 | disposition home or self-care (01) ==
PROVIDERS: Physician Assistant Medical; Emergency Provider Emergency Medicine; PCP Nurse Practitioner Adult Health
DX: N20.0 Calculus of kidney (principal); I10 Essential (primary) hypertension; E11.9 Type 2 diabetes mellitus without complications; J45.909 Unspecified asthma, uncomplicated; Z87.442 Personal history of urinary calculi; Z88.5 Allergy status to narcotic agent
CPT/HCPCS: 36415; 74176; 80048; 81001; 84702; 85025; 96372; 99284; 99291; J1885

== ENCOUNTER 2021-08-22 02:07 | Emergency (ER) | payer OTHER, SELFPAY ==
[2021-08-22 02:33] VITALS: BP 176/64; PULSE 87; RESP 18; TEMP 36.9; O2SAT 96; BMI 38.0
[2021-08-22 05:25] VITALS: BP 136/79; PULSE 77; RESP 16; TEMP 36.8; O2SAT 98
[2021-08-22 05:40] LABS: MANUAL DIFF FLAG NO
[2021-08-22 05:41] LABS: Appearance Urine HAZY; Basophils Percent Auto 0.1 % (0-2); Color Urine YELLOW; Eosinophils Absolute Auto 0.1 X10*3/uL (0.0-0.4); Eosinophils Percent Auto 1.1 % (0-4); Glucose Urine UA NEG (NEG); Hematocrit 40.7 % (37.0-47.0); Hemoglobin 14.1 g/dl (12.0-16.0); Imm Gran Abs Auto 0.02 X10*3/uL (0.00-0.03); Imm Gran Pct Auto 0.3 % (0.0-0.4); Leukocyte Esterase Urine NEG (NEG); Lymphocytes Absolute Auto 3.1 X10*3/uL (1.2-4.9); Lymphocytes Percent Auto 42.9 % (20-40); Mean Corpuscular HGB Conc 34.6 g/dl (31.0-35.0); Mean Corpuscular Hemoglobin 29.8 pg (27.0-33.0); Mean Platelet Volume 9.6 fL (9.4-12.3); Monocytes Absolute Auto 0.6 X10*3/uL (0.1-1.2); Monocytes Percent Auto 8.5 % (2-11); Neutrophils Absolute Auto 3.4 x10*3/uL (2.0-8.3); Neutrophils Percent Auto 47.1 % (45-73); Nitrite Urine NEG (NEG); Platelet Count 210 X10*3/uL (160-400); Red Blood Count 4.73 X10*6/uL (4.20-5.50); Red Cell Distribution Width 13.9 % (11.0-16.0); Specific Gravity - Urine 1.015 (1.005-1.025); Urine Blood NEG (NEG); Urine Ketones NEG (NEG); Urine Protein TRACE MG/DL (NEG-TRACE); White Blood Count 7.3 X10*3/uL (4.8-10.8)
[2021-08-22 06:01] LABS: Alanine Aminotransferase 36 U/L (0-31); Albumin Level 3.5 g/dL (3.5-5.0); Alkaline Phosphatase 93 U/L (39-117); Anion Gap 12 (12-20); Aspartate Amino Transferase 47 U/L (5-31); Bilirubin Total 0.3 mg/dL (0.0-1.0); Blood Urea Nitrogen 15 mg/dL (9-16); Calcium 8.6 mg/dL (8.4-10.2); Carbon Dioxide 28 mmol/L (22-29); Chloride 101 mmol/L (96-108); Creatinine Clr Calc Pharmacy 109.1; Estimated Glomerular Filt Rate > 60; Glucose Random 134 mg/dL (60-115); Potassium 3.4 mmol/L (3.3-5.1); Sodium 138 mmol/L (135-145); Total Protein 6.3 g/dL (6.5-8.0)
--- NOTE | 2021-08-22 06:06 | ED.SOB ---
HPI - SOB/Dyspnea General Chief Complaint: Dyspnea Stated Complaint: COVID + diff breathing, chest tightness Time Seen by Provider: 08/22/21 06:06 Source: patient Mode of arrival: ambulatory History of Present Illness HPI Narrative: 40-year-old female current everyday smoker with a history of asthma presents with persistent shortness of breath but took a home COVID-19 test that was positive on Monday. Otherwise, she denies any fever, chills, nausea, vomiting, diarrhea. Related Data Previous Rx's Medication Instructions Recorded albuterol sulfate 1.25 mg/3 mL 1.25 mg (3 mL) INHALATION Q4-6H 01/25/20 solution for nebulization PRN #75 ml albuterol sulfate 90 mcg/actuation 2 puff INHALATION Q6H PRN #18 g 01/25/20 aerosol inhaler prednisone 20 mg tablet 40 mg PO DAILY 5 Days #10 tab 02/15/20 prednisone 20 mg tablet 40 mg PO DAILY 4 Days #8 tab 03/10/20 doxycycline hyclate 100 mg tablet 100 mg PO Q12H 10 Days #20 tab 05/19/20 prednisone 20 mg tablet 60 mg PO DAILY 5 Days #15 tab 05/19/20 acetaminophen 500 mg tablet 1,000 mg PO QID PRN #14 tab 07/20/20 (Tylenol Extra Strength) albuterol sulfate 0.63 mg/3 mL 0.63 mg (3 mL) INHALATION QID PRN 07/20/20 solution for nebulization #75 ml albuterol sulfate 90 mcg/actuation 1 inh INHALATION QID PRN #8.5 g 07/20/20 aerosol inhaler blood sugar diagnostic (FreeStyle #100 ea 07/20/20 Lite Strips) blood-glucose meter (FreeStyle #1 ea 07/20/20 [place] Lite) doxycycline monohydrate 100 mg 100 mg PO BID 10 Days #20 cap 07/20/20 capsule ibuprofen 800 mg tablet 800 mg PO Q8H PRN #14 tab 07/20/20 lancets 28 gauge (FreeStyle #100 ea 07/20/20 Lancets) metformin 500 mg tablet 500 mg PO BID 30 Days #60 tab 07/20/20 prednisone 20 mg tablet 40 mg PO DAILY 5 Days #10 tab 07/20/20 tramadol 50 mg tablet 50 mg PO Q6H PRN #20 tab 08/18/20 hydromorphone 2 mg tablet 2 mg PO Q6H PRN #14 tab 12/10/20 (Dilaudid) ondansetron 4 mg disintegrating 4 mg PO Q6-8H PRN #7 tab 12/10/20 tablet tamsulosin 0.4 mg capsule (Flomax) 0.4 mg PO DAILY #7 cap 12/10/20 tamsulosin 0.4 mg capsule (Flomax) 0.4 mg PO DAILY #10 cap 12/26/20 cyclobenzaprine 10 mg tablet 10 mg PO TID PRN #14 tab 01/15/21 prednisone 20 mg tablet 40 mg PO DAILY 4 Days #8 tab 03/22/21 ondansetron 4 mg disintegrating 4 mg PO Q8H PRN #20 tab 06/08/21 tablet albuterol sulfate 2.5 mg (3 mL) INHALATION Q4-6H PRN 06/29/21 #90 ml albuterol sulfate 90 mcg/actuation 2 puff INHALATION Q4-6H PRN #8.5 g 06/29/21 aerosol inhaler (ProAir HFA) codeine 10 mg-guaifenesin 100 mg/5 10 ml PO Q6H PRN #237 ml 06/29/21 mL oral liquid levofloxacin 500 mg tablet 500 mg PO DAILY 7 Days #7 tab 06/29/21 prednisone 20 mg tablet 40 mg PO DAILY #10 tab 06/29/21 cyclobenzaprine 10 mg tablet 10 mg PO TID PRN #14 tab 08/07/21 hydromorphone 2 mg tablet 2 mg PO Q6H PRN #6 tab 08/07/21 (Dilaudid) ibuprofen 600 mg tablet 600 mg PO Q8H PRN #20 tab 08/07/21 ketorolac 10 mg tablet 10 mg PO Q8H PRN #14 tab 08/16/21 morphine 15 mg immediate release 15 mg PO Q12H PRN #14 tab 08/16/21 tablet ondansetron 4 mg disintegrating 4 mg PO Q6H #14 tab 08/16/21 tablet prednisone 20 mg tablet 20 mg PO DAILY 5 Days #5 tab 08/16/21 tamsulosin 0.4 mg capsule (Flomax) 0.4 mg PO DAILY 5 Days #5 cap 08/16/21 benzonatate 200 mg capsule 200 mg PO TID PRN #10 cap 08/22/21 Allergies Allergy/AdvReac Type Severity Reaction Status Date / Time hydrocodone [From VICODIN] Allergy Mild HIVES Verified 08/07/21 14:28 oxycodone [From PERCOCET] Allergy Mild HIVES Verified 08/07/21 14:28 azithromycin [AZITHROMYCIN] Allergy Unknown NAUSEA & Verified 08/07/21 14:28 VOMITING erythromycin base Allergy Unknown NAUSEA & Verified 08/07/21 14:28 [From ERYTHROCIN] VOMITING Review of Systems Review of Systems: Pertinent positives and negatives as stated in HPI 10 point review of systems is otherwise negative. PMFSH Past Medical History Source: nursing notes reviewed Medical History Anxiety Asthma Bipolar 1 disorder delivery delivered Depression Diabetes Fibromyalgia HTN (hypertension) Hypertension Kidney infection Kidney stones Lupus Sciatica Sleep apnea Surgical History H/O: hysterectomy Social History Social History Alcohol intake: never Patient Tobacco Use Status: Never used Tobacco Substance Use Type: Marijuana Advance Directives: No Physical Exam Vital Signs: Vital Signs: Last Vital Signs Temp 98.2 F 08/22/21 05:25 Pulse 77 08/22/21 05:25 Resp 16 08/22/21 05:25 BP 136/79 08/22/21 05:25 Pulse Ox 98 08/22/21 05:25 BMI result Body Mass Index 38.0 VITAL SIGNS: Reviewed. GENERAL: Well developed, well nourished, in no acute distress. HEAD: Normocephalic/atraumatic, EYES: PERRLA, EOMI EARS: Ext canals without abnormality OROPHARYNX: no oral lesions noted, posterior pharynx clear LUNGS: Normal breath sounds without wheeze/rhonchi/rales. SpO2<98> CARDIOVASCULAR: Regular rate and rhythm without noted murmurs ABDOMEN: Soft, non-tender, non-distended with bowel sounds. NEUROLOGIC: Alert and oriented x 4. Strength and sensation to light touch were grossly intact x 4. Course Course Course Narrative: 40-year-old female with history and clinical presentation consistent with COVID-19 infectivity and will test for flu as well. Patient is otherwise oxygenating well on room air and does not demonstrate tachypnea or tachycardia. COVID-19 was positive, influenza was negative. Patient is otherwise discharged home in stable condition. MDM - SOB/Dyspnea Lab Data Result diagrams: 08/22/21 05:34 08/22/21 05:34 Labs: Lab Results 08/22/21 08/22/21 08/22/21 Range/Units 05:34 05:34 05:34 WBC 7.3 (4.8-10.8) X10*3/uL RBC 4.73 (4.20-5.50) X10*6/uL Hgb 14.1 (12.0-16.0) g/dl Hct 40.7 (37.0-47.0) % MCV 86.0 (80.0-98.0) fL MCH 29.8 (27.0-33.0) pg MCHC 34.6 (31.0-35.0) g/dl RDW 13.9 (11.0-16.0) % Plt Count 210 D (160-400) X10*3/uL MPV 9.6 (9.4-12.3) fL Immature Gran % (Auto) 0.3 (0.0-0.4) % Neut % (Auto) 47.1 (45-73) % Lymph % (Auto) 42.9 H (20-40) % [place] % (Auto) 8.5 (2-11) % Eos % (Auto) 1.1 (0-4) % Baso % (Auto) 0.1 (0-2) % Lymph # (Auto) 3.1 (1.2-4.9) X10*3/uL [place] # (Auto) 0.6 (0.1-1.2) X10*3/uL Eos # (Auto) 0.1 (0.0-0.4) X10*3/uL Baso # (Auto) 0.0 (0.0-0.2) X10*3/uL Abs Immat Gran (auto) 0.02 (0.00-0.03) X10*3/uL Absolute Neuts (auto) 3.4 (2.0-8.3) x10*3/uL Absolute Nucleated RBC 0.000 (0.0-0.012) X10*3/uL Nucleated RBC % (auto) 0.0 (0.0-0.2) /100WBC Sodium 138 (135-145) mmol/L Potassium 3.4 D (3.3-5.1) mmol/L Chloride 101 (96-108) mmol/L Carbon Dioxide 28 (22-29) mmol/L Anion Gap 12 (12-20) BUN 15 (9-16) mg/dL Creatinine 0.77 (0.5-1.4) mg/dL Estim Creat Clear Calc 109.1 Estimated GFR > 60 Random Glucose 134 H (60-115) mg/dL Calcium 8.6 D (8.4-10.2) mg/dL Total Bilirubin 0.3 (0.0-1.0) mg/dL AST 47 H D (5-31) U/L ALT 36 H (0-31) U/L Alkaline Phosphatase 93 (39-117) U/L Total Protein 6.3 L (6.5-8.0) g/dL Albumin 3.5 (3.5-5.0) g/dL Urine Color YELLOW Urine Appearance HAZY Urine pH 7.0 (5.0-8.0) Ur Specific [place] 1.015 (1.005-1.025) Urine Protein TRACE (NEG-TRACE) MG/DL Urine Glucose (UA) NEG (NEG) MG/DL Urine Ketones NEG (NEG) MG/DL Urine Blood NEG (NEG) Urine Nitrite NEG (NEG) Ur Leukocyte Esterase NEG (NEG) COVID-19 (RAZA) (Negative) COVID-19 Clin Com Influenza Type A (FRANCIA) (Negative) Influenza Type B (FRANCIA) (Negative) Influenza A & B Note 08/22/21 08/22/21 Range/Units 06:14 06:14 WBC (4.8-10.8) X10*3/uL RBC (4.20-5.50) X10*6/uL Hgb (12.0-16.0) g/dl Hct (37.0-47.0) % MCV (80.0-98.0) fL MCH (27.0-33.0) pg MCHC (31.0-35.0) g/dl RDW (11.0-16.0) % Plt Count (160-400) X10*3/uL MPV (9.4-12.3) fL Immature Gran % (Auto) (0.0-0.4) % Neut % (Auto) (45-73) % Lymph % (Auto) (20-40) % [place] % (Auto) (2-11) % Eos % (Auto) (0-4) % Baso % (Auto) (0-2) % Lymph # (Auto) (1.2-4.9) X10*3/uL [place] # (Auto) (0.1-1.2) X10*3/uL Eos # (Auto) (0.0-0.4) X10*3/uL Baso # (Auto) (0.0-0.2) X10*3/uL Abs Immat Gran (auto) (0.00-0.03) X10*3/uL Absolute Neuts (auto) (2.0-8.3) x10*3/uL Absolute Nucleated RBC (0.0-0.012) X10*3/uL Nucleated RBC % (auto) (0.0-0.2) /100WBC Sodium (135-145) mmol/L Potassium (3.3-5.1) mmol/L Chloride (96-108) mmol/L Carbon Dioxide (22-29) mmol/L Anion Gap (12-20) BUN (9-16) mg/dL Creatinine (0.5-1.4) mg/dL Estim Creat Clear Calc Estimated GFR Random Glucose (60-115) mg/dL Calcium (8.4-10.2) mg/dL Total Bilirubin (0.0-1.0) mg/dL AST (5-31) U/L ALT (0-31) U/L Alkaline Phosphatase (39-117) U/L Total Protein (6.5-8.0) g/dL Albumin (3.5-5.0) g/dL Urine Color Urine Appearance Urine pH (5.0-8.0) Ur Specific [place] (1.005-1.025) Urine Protein (NEG-TRACE) MG/DL Urine Glucose (UA) (NEG) MG/DL Urine Ketones (NEG) MG/DL Urine Blood (NEG) Urine Nitrite (NEG) Ur Leukocyte Esterase (NEG) COVID-19 (RAZA) Positive A (Negative) COVID-19 Clin Com See Note Influenza Type A (FRANCIA) Negative (Negative) Influenza Type B (FRANCIA) Negative (Negative) Influenza A & B Note See Note Discharge Plan Discharge Clinical Impression: Viral syndrome, Lab test positive for detection of COVID-19 virus, Asthma Patient Disposition: Home, Self-Care Instructions: Asthma (ED), Viral Syndrome (ED), COVID-19 (Coronavirus Disease 2019) (ED) Additional Instructions: 1. You have COVID-19 and as per current CDC guidelines you must remain isolated for 5 days and then follow all [place] and Federal guidelines. 2. Recommend cool mist humidifier, you have been provided with a prescription for cough suppressant. Get plenty of rest, and to take Tylenol/ibuprofen as needed for headache, body aches, temperatures greater than 100.4. 3. Follow-up with your primary care provider on Monday morning via telemedicine for re-evaluation. Return to the ER for worsening symptoms. Prescriptions: New benzonatate 200 mg capsule 200 mg PO TID PRN (Reason: cough) Qty: 10 0RF No Action prednisone 20 mg tablet 40 mg PO DAILY 4 Days Qty: 8 0RF tramadol 50 mg tablet 50 mg PO Q6H PRN (Reason: pain) Qty: 20 0RF tamsulosin [Flomax] 0.4 mg capsule 0.4 mg PO DAILY Qty: 7 0RF hydromorphone [Dilaudid] 2 mg tablet 2 mg PO Q6H PRN (Reason: pain) Qty: 14 0RF ondansetron 4 mg tablet,disintegrating 4 mg PO Q6-8H PRN (Reason: nausea and vomiting) Qty: 7 0RF tamsulosin [Flomax] 0.4 mg capsule 0.4 mg PO DAILY Qty: 10 0RF albuterol sulfate 90 mcg/actuation HFA aerosol inhaler 2 puff inhalation Q6H PRN (Reason: shortness of breath or wheezing) Qty: 18 0RF albuterol sulfate 1.25 mg/3 mL solution for nebulization 1.25 mg inhalation Q4-6H PRN (Reason: shortness of breath or wheezing) Qty: 75 0RF prednisone 20 mg tablet 40 mg PO DAILY 5 Days Qty: 10 0RF prednisone 20 mg tablet 60 mg PO DAILY 5 Days Qty: 15 0RF doxycycline hyclate 100 mg tablet 100 mg PO Q12H 10 Days Qty: 20 0RF metformin 500 mg tablet 500 mg PO BID 30 Days Qty: 60 0RF albuterol sulfate 0.63 mg/3 mL solution for nebulization 0.63 mg inhalation QID PRN (Reason: shortness of breath or wheezing) Qty: 75 0RF albuterol sulfate 90 mcg/actuation HFA aerosol inhaler 1 inh inhalation QID PRN (Reason: shortness of breath or wheezing) Qty: 8.5 0RF ibuprofen 800 mg tablet 800 mg PO Q8H PRN (Reason: pain) Qty: 14 0RF acetaminophen [Tylenol Extra Strength] 500 mg tablet 1,000 mg PO QID PRN (Reason: fever or pain) Qty: 14 0RF doxycycline monohydrate 100 mg capsule 100 mg PO BID 10 Days Qty: 20 0RF prednisone 20 mg tablet 40 mg PO DAILY 5 Days Qty: 10 0RF (DME) blood-glucose meter [FreeStyle [place] Lite] Kit See Rx Instructions .ROUTE .MEDSUPPLY Qty: 1 0RF Rx Instructions: As directed (DME) FreeStyle Lite Strips Strip See Rx Instructions .ROUTE .MEDSUPPLY Qty: 100 0RF Rx Instructions: As directed (DME) lancets [FreeStyle Lancets] 28 gauge misc See Rx Instructions .ROUTE .MEDSUPPLY Qty: 100 0RF Rx Instructions: As directed ondansetron 4 mg tablet,disintegrating 4 mg PO Q8H PRN (Reason: nausea and vomiting) Qty: 20 0RF cyclobenzaprine 10 mg tablet 10 mg PO TID PRN (Reason: muscle spasm) Qty: 14 0RF ibuprofen 600 mg tablet 600 mg PO Q8H PRN (Reason: pain) Qty: 20 0RF hydromorphone [Dilaudid] 2 mg tablet 2 mg PO Q6H PRN (Reason: pain (scale score 7-10)) Qty: 6 0RF ketorolac 10 mg tablet 10 mg PO Q8H PRN (Reason: pain) Qty: 14 0RF Rx Instructions: First dose was given in the ED by IM and tolerated well tamsulosin [Flomax] 0.4 mg capsule 0.4 mg PO DAILY 5 Days Qty: 5 0RF prednisone 20 mg tablet 20 mg PO DAILY 5 Days Qty: 5 0RF ondansetron 4 mg tablet,disintegrating 4 mg PO Q6H Qty: 14 0RF morphine 15 mg tablet 15 mg PO Q12H PRN (Reason: severe kidney stones pain ) Qty: 14 0RF cyclobenzaprine 10 mg tablet 10 mg PO TID PRN (Reason: muscle spasm) Qty: 14 0RF prednisone 20 mg tablet 40 mg PO DAILY 4 Days Qty: 8 0RF prednisone 20 mg tablet 40 mg PO DAILY Qty: 10 0RF albuterol sulfate [ProAir HFA] 90 mcg/actuation HFA aerosol inhaler 2 puff inhalation Q4-6H PRN (Reason: Cough) Qty: 8.5 0RF albuterol sulfate 2.5 mg /3 mL (0.083 %) solution for nebulization 2.5 mg inhalation Q4-6H PRN (Reason: shortness of breath or wheezing) Qty: 90 0RF codeine-guaifenesin 10-100 mg/5 mL liquid 10 ml PO Q6H PRN (Reason: cough) Qty: 237 0RF levofloxacin 500 mg tablet 500 mg PO DAILY 7 Days Qty: 7 0RF Referrals: Thu Gallardo [employer]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
[2021-08-22 06:35] LABS: COVID-19 Test Positive (Negative); IDNOW Serial# 16C4AD1C; Influenza A Negative (Negative); Influenza B2 Negative (Negative)
[2021-08-22] MEDS: Ibuprofen 400 MG TABLET PO (07:18)
[2021-08-22] MEDS: Acetaminophen 325 MG TABLET 975 MG PO (07:18)
== END 2021-08-22 07:19 | disposition home or self-care (01) ==
PROVIDERS: Emergency Medicine; Emergency Provider Student in an Organized Health Care Education/Training Program; PCP Nurse Practitioner Adult Health
DX: U07.1 COVID-19 (principal); B34.9 Viral infection, unspecified; J45.909 Unspecified asthma, uncomplicated; E11.9 Type 2 diabetes mellitus without complications; I10 Essential (primary) hypertension; M32.9 Systemic lupus erythematosus, unspecified
CPT/HCPCS: 36415; 80053; 81003; 85025; 87502; 87635; 99283; 99284

== ENCOUNTER 2021-10-15 10:07 | Emergency (ER) | payer OTHER, SELFPAY ==
[2021-10-15 10:14] VITALS: BP 145/87; PULSE 92; RESP 18; TEMP 36.8; O2SAT 95; BMI 37.3
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
== END 2021-10-15 11:57 | disposition home or self-care (01) ==
PROVIDERS: Emergency Provider Emergency Medicine; PCP Nurse Practitioner Adult Health
DX: Z04.1 Encounter for examination and observation following transport accident (principal); M54.9 Dorsalgia, unspecified; N63.20 Unspecified lump in the left breast, unspecified quadrant; E11.9 Type 2 diabetes mellitus without complications; I10 Essential (primary) hypertension
CPT/HCPCS: 99283

== ENCOUNTER 2022-02-17 06:59 | Emergency (ER) | payer OTHER, SELFPAY ==
[2022-02-17 07:10] VITALS: BP 171/82; PULSE 83; RESP 18; TEMP 36.2; O2SAT 99; BMI 38.0
--- NOTE | 2022-02-17 08:13 | ED.GENADULT ---
HPI - General Adult General Chief complaint: Extremity Problem Stated complaint: Swollen finger, ring possibly stuck Time Seen by Provider: 02/17/22 08:10 Source: patient Mode of arrival: ambulatory Limitations: no limitations History of Present Illness HPI narrative: Patient is a 41 year old assigned female at with a history of fibromyalgia, HTN, lupus, PTSD, and bipolar disorder presenting to the emergency department today with left ring finger pain and a stuck ring. Patient states that she woke up and her left ring finger seemed a bit more swollen than usual so she attempted to remove the ring on it and made the swelling worse and the ring got stuck. Patient states that while waiting to be evaluated, she got the ring off. Patient denies any dizziness, lightheadedness, abdominal pain, nausea, vomiting, fever, chills, blurry vision, double vision, loss of vision, chest pain, difficulty breathing, shortness of breath, back pain, night sweats, pain with urination, increased urinary frequency, increased urinary urgency, blood in her urine or stool, syncope or a near syncopal episode, recent trauma or falls, bowel incontinence, bladder incontinence, bowel retention, bladder retention, or any other complaints at this time. Onset (ago): hour(s) Location: left and upper extremity Radiation: non-radiation Severity: mild Severity scale (1-10): 2 Quality: dull Pain Consistency: constant Relieving factors: none Exacerbating factors: none Associated symptoms: denies other symptoms Treatments prior to arrival: none Related Data Previous Rx's Medication Instructions Recorded albuterol sulfate 1.25 mg/3 mL 1.25 mg (3 mL) inhalation Q4-6H 01/25/20 solution for nebulization PRN shortness of breath or wheezing #75 mL albuterol sulfate 90 mcg/actuation 2 puff inhalation Q6H PRN 01/25/20 aerosol inhaler shortness of breath or wheezing #18 grams prednisone 20 mg tablet 40 mg PO DAILY 5 days #10 tabs 02/15/20 prednisone 20 mg tablet 40 mg PO DAILY 4 days #8 tabs 03/10/20 doxycycline hyclate 100 mg tablet 100 mg PO Q12H 10 days #20 tabs 05/19/20 prednisone 20 mg tablet 60 mg PO DAILY 5 days #15 tabs 05/19/20 acetaminophen 500 mg tablet 1,000 mg PO QID PRN fever or pain 07/20/20 (Tylenol Extra Strength) #14 tabs albuterol sulfate 0.63 mg/3 mL 0.63 mg (3 mL) inhalation QID PRN 07/20/20 solution for nebulization shortness of breath or wheezing #75 mL albuterol sulfate 90 mcg/actuation 1 inh inhalation QID PRN shortness 07/20/20 aerosol inhaler of breath or wheezing #8.5 grams blood sugar diagnostic (FreeStyle #100 ea 07/20/20 Lite Strips) blood-glucose meter (FreeStyle #1 ea 07/20/20 [place] Lite kit) doxycycline monohydrate 100 mg 100 mg PO BID 10 days #20 caps 07/20/20 capsule ibuprofen 800 mg tablet 800 mg PO Q8H PRN pain #14 tabs 07/20/20 lancets 28 gauge (FreeStyle #100 ea 07/20/20 Lancets) metformin 500 mg tablet 500 mg PO BID New diagnosis 07/20/20 diabetes type 2 30 days #60 tabs prednisone 20 mg tablet 40 mg PO DAILY rash 5 days #10 tabs 07/20/20 tramadol 50 mg tablet 50 mg PO Q6H PRN pain #20 tabs 08/18/20 hydromorphone 2 mg tablet 2 mg PO Q6H PRN pain #14 tabs 12/10/20 (Dilaudid) ondansetron 4 mg disintegrating 4 mg PO Q6-8H PRN nausea and 12/10/20 tablet vomiting #7 tabs tamsulosin 0.4 mg capsule (Flomax) 0.4 mg PO DAILY #7 caps 12/10/20 tamsulosin 0.4 mg capsule (Flomax) 0.4 mg PO DAILY #10 caps 12/26/20 cyclobenzaprine 10 mg tablet 10 mg PO TID PRN muscle spasm #14 01/15/21 tabs prednisone 20 mg tablet 40 mg PO DAILY 4 days #8 tabs 03/22/21 ondansetron 4 mg disintegrating 4 mg PO Q8H PRN nausea and 06/08/21 tablet vomiting #20 tabs albuterol sulfate 2.5 mg/3 mL 2.5 mg (3 mL) inhalation Q4-6H PRN 06/29/21 (0.083 %) solution for nebulization shortness of breath or wheezing #90 mL albuterol sulfate 90 mcg/actuation 2 puff inhalation Q4-6H PRN Cough 06/29/21 aerosol inhaler (ProAir HFA) #8.5 grams codeine 10 mg-guaifenesin 100 mg/5 10 ml PO Q6H PRN cough #237 mL 06/29/21 mL oral liquid levofloxacin 500 mg tablet 500 mg PO DAILY 7 days #7 tabs 06/29/21 prednisone 20 mg tablet 40 mg PO DAILY #10 tabs 06/29/21 cyclobenzaprine 10 mg tablet 10 mg PO TID PRN muscle spasm #14 08/07/21 tabs hydromorphone 2 mg tablet 2 mg PO Q6H PRN pain (scale score 08/07/21 (Dilaudid) 7-10) #6 tabs ibuprofen 600 mg tablet 600 mg PO Q8H PRN pain #20 tabs 08/07/21 ketorolac 10 mg tablet 10 mg PO Q8H PRN pain #14 tabs 08/16/21 morphine 15 mg immediate release 15 mg PO Q12H PRN severe kidney 08/16/21 tablet stones pain #14 tabs ondansetron 4 mg disintegrating 4 mg PO Q6H #14 tabs 08/16/21 tablet prednisone 20 mg tablet 20 mg PO DAILY 5 days #5 tabs 08/16/21 tamsulosin 0.4 mg capsule (Flomax) 0.4 mg PO DAILY 5 days #5 caps 08/16/21 benzonatate 200 mg capsule 200 mg PO TID PRN cough #10 caps 08/22/21 cyclobenzaprine 5 mg tablet 5 mg PO TID PRN muscle spasm #10 10/15/21 tabs morphine 15 mg immediate release 15 mg PO Q6H PRN pain #7 tabs 10/15/21 tablet Allergies Allergy/AdvReac Type Severity Reaction Status Date / Time hydrocodone [From VICODIN] Allergy Mild HIVES Verified 11/08/21 13:29 oxycodone [From PERCOCET] Allergy Mild HIVES Verified 11/08/21 13:29 azithromycin [AZITHROMYCIN] Allergy Unknown NAUSEA & Verified 11/08/21 13:29 VOMITING erythromycin base Allergy Unknown NAUSEA & Verified 11/08/21 13:29 [From ERYTHROCIN] VOMITING Review of Systems Constitutional: Constitutional: Reports no additional constitutional complaints, Denies chills, Denies fever(s) and Denies night sweats Eyes: Eyes: Reports no additional eye complaints, Denies blurry vision, Denies change in vision, Denies diplopia, Denies eye discharge, Denies loss of vision and Denies eye pain ENT: Denies dizziness Cardiovascular: Cardiovascular: Reports no additional cardiovascular complaints, Denies chest pain, Denies lightheadedness, Denies Loss of Consciousness and Denies dyspnea Respiratory: Respiratory: Reports no additional respiratory complaints and Denies dyspnea Gastrointestinal: Gastrointestinal: Reports no additional gastrointestinal complaints, Denies abdominal pain, Denies melena, Denies hematochezia, Denies change in bowel habits and Denies change in stool character Genitourinary: Genitourinary: Denies hematuria, Denies urinary frequency, Denies dysuria, Denies urinary incontinence, Denies urinary hesitancy and Denies urinary urgency Musculoskeletal: Musculoskeletal: Reports no additional musculoskeletal complaints, Denies numbness and Denies tingling Comments: left ring finger swelling Neurologic: Denies dizziness, Denies loss of vision, Denies numbness and Denies tingling Psychiatric: Psychiatric: Reports no additional psychiatric complaints Endocrine: Endocrine: Reports no additional endocrine complaints Hematologic/Lymphatic: Hematologic/Lymphatic: Reports no additional hematologic/lymphatic complaints Allergic/Immunologic: Allergic/Immunologic: Reports no additional allergic/immunologic complaints PMFSH Past Medical History Attestation statement: The following information was validated with the patient. Source: old records reviewed Medical History Anxiety Asthma Bipolar 1 disorder Breast pain, left delivery delivered Depression Diabetes Fibromyalgia HTN (hypertension) Hypertension Kidney infection Kidney stones Lupus Sciatica Sleep apnea Surgical History H/O: hysterectomy Social History Social History Alcohol intake: never Patient Tobacco Use Status: Never used Tobacco Substance Use Type: Marijuana Advance Directives: No Advance Directives Information Provided: No Physical Exam ED Vital Signs: Vital Signs - 24 hr 02/17/22 07:10 Temperature 97.1 F Pulse Rate 83 Respiratory Rate 18 Blood Pressure 171/82 H Pulse Oximetry 99 Oxygen Delivery Method Room Air BMI result Body Mass Index 38.0 Const General: cooperative, no acute distress, alert and awake Nutritional Appearance: well nourished Orientation/consciousness: patient oriented x3 Limitations: no limitations HENMT Head: Yes normal to inspection and Yes atraumatic Ears: hearing grossly normal bilaterally and external ears normal General nose exam: Normal external nose present, no nasal discharge noted and no epistaxis Face and sinus: Yes normal facial exam, No abrasion and No laceration Mouth: Normal oral and palatal mucosa present, no drooling and no muffled voice Eyes General: appearance normal, both eyes and all related structures Periorbital: periorbital findings normal Eyelids: Yes eyelids normal Conjunctivae: conjunctivae normal Pupils: Equal, round and reactive pupils present EOM: EOMs intact bilaterally Neck Neck: Yes normal visual inspection, Yes full ROM and Yes no lymphadenopathy Chest Chest palpation & inspection: normal inspection of the chest Resp Effort & Inspection: normal respiratory effort and able to speak in complete sentences Auscultation: clear to auscultation bilaterally Cardio Rate: regular rate Rhythm: regular rhythm GI Inspection: Yes normal to inspection Neuro General: patient oriented x3 and moves all extremities Cranial nerves: Yes Equal, round and reactive pupils present Cognition (Neuro): normal cognition Motor exam (neuro): 5/5 motor strength present throughout Sensory Exam: Normal double simultaneous stimulation for sensation Coordination: [id number] test normal Extrem Other: minimal swelling to the left PIP joint General: Yes full ROM and Yes capillary refill normal Psych Appearance: grossly normal Mental Status: mental status grossly normal Affect: normal affect Attitude: cooperative Thought process: Normal thought process present Thought content: Normal thought content present Insight: Good insight present (Psych) Medical Decision Making [facility] Narrative Medical decision making narrative: Patient is a 41 year old assigned female at with a history of fibromyalgia, HTN, lupus, PTSD, and bipolar disorder presenting to the emergency department today with left ring finger swelling. Patient's physical exam showed minimal swelling to the left ring finger, specifically the PIP joint but was otherwise unremarkable. I explained my physical exam findings to the patient. I answered all questions asked by the patient. I stressed the importance of the patient taking her medication as prescribed. I stressed the importance of the patient following up with her primary care provider. I stressed the importance of the patient returning to the emergency department immediately if her symptoms were to worsen or if she were to develop any dizziness, shortness of breath, difficulty breathing, chest pain, blurry vision, loss of vision, nausea, vomiting, abdominal pain, fever, chills, back pain, or any other complaints. Patient verbalized agreement and understanding with this treatment plan and discharge. Medical Records Medical records reviewed: Yes I reviewed the patient's medical records. Discharge Plan Discharge Clinical Impression: Finger joint swelling Patient Disposition: Home, Self-Care Instructions: Swollen Joint (ED) Additional Instructions: Do NOT put the ring back on the affected finger for at least 1 week or until the finger decreases in swelling, back to normal size, whichever is later. Follow up with your primary care provider. Return to the emergency department immediately if your symptoms worsen or if you develop any dizziness, shortness of breath, difficulty breathing, chest pain, blurry vision, loss of vision, nausea, vomiting, abdominal pain, fever, chills, back pain, or any other complaints. Prescriptions: No Action prednisone 20 mg tablet 40 mg PO DAILY 4 Days Qty: 8 0RF tramadol 50 mg tablet 50 mg PO Q6H PRN (Reason: pain) Qty: 20 0RF tamsulosin [Flomax] 0.4 mg capsule 0.4 mg PO DAILY Qty: 7 0RF hydromorphone [Dilaudid] 2 mg tablet 2 mg PO Q6H PRN (Reason: pain) Qty: 14 0RF ondansetron 4 mg tablet,disintegrating 4 mg PO Q6-8H PRN (Reason: nausea and vomiting) Qty: 7 0RF tamsulosin [Flomax] 0.4 mg capsule 0.4 mg PO DAILY Qty: 10 0RF albuterol sulfate 90 mcg/actuation HFA aerosol inhaler 2 puff inhalation Q6H PRN (Reason: shortness of breath or wheezing) Qty: 18 0RF albuterol sulfate 1.25 mg/3 mL solution for nebulization 1.25 mg inhalation Q4-6H PRN (Reason: shortness of breath or wheezing) Qty: 75 0RF prednisone 20 mg tablet 40 mg PO DAILY 5 Days Qty: 10 0RF prednisone 20 mg tablet 60 mg PO DAILY 5 Days Qty: 15 0RF doxycycline hyclate 100 mg tablet 100 mg PO Q12H 10 Days Qty: 20 0RF metformin 500 mg tablet 500 mg PO BID 30 Days Qty: 60 0RF albuterol sulfate 0.63 mg/3 mL solution for nebulization 0.63 mg inhalation QID PRN (Reason: shortness of breath or wheezing) Qty: 75 0RF albuterol sulfate 90 mcg/actuation HFA aerosol inhaler 1 inh inhalation QID PRN (Reason: shortness of breath or wheezing) Qty: 8.5 0RF ibuprofen 800 mg tablet 800 mg PO Q8H PRN (Reason: pain) Qty: 14 0RF acetaminophen [Tylenol Extra Strength] 500 mg tablet 1,000 mg PO QID PRN (Reason: fever or pain) Qty: 14 0RF doxycycline monohydrate 100 mg capsule 100 mg PO BID 10 Days Qty: 20 0RF prednisone 20 mg tablet 40 mg PO DAILY 5 Days Qty: 10 0RF (DME) blood-glucose meter [FreeStyle [place] Lite] Kit See Rx Instructions .ROUTE .MEDSUPPLY Qty: 1 0RF Rx Instructions: As directed (DME) FreeStyle Lite Strips Strip See Rx Instructions .ROUTE .MEDSUPPLY Qty: 100 0RF Rx Instructions: As directed (DME) lancets [FreeStyle Lancets] 28 gauge misc See Rx Instructions .ROUTE .MEDSUPPLY Qty: 100 0RF Rx Instructions: As directed ondansetron 4 mg tablet,disintegrating 4 mg PO Q8H PRN (Reason: nausea and vomiting) Qty: 20 0RF cyclobenzaprine 10 mg tablet 10 mg PO TID PRN (Reason: muscle spasm) Qty: 14 0RF ibuprofen 600 mg tablet 600 mg PO Q8H PRN (Reason: pain) Qty: 20 0RF hydromorphone [Dilaudid] 2 mg tablet 2 mg PO Q6H PRN (Reason: pain (scale score 7-10)) Qty: 6 0RF ketorolac 10 mg tablet 10 mg PO Q8H PRN (Reason: pain) Qty: 14 0RF Rx Instructions: First dose was given in the ED by IM and tolerated well tamsulosin [Flomax] 0.4 mg capsule 0.4 mg PO DAILY 5 Days Qty: 5 0RF prednisone 20 mg tablet 20 mg PO DAILY 5 Days Qty: 5 0RF ondansetron 4 mg tablet,disintegrating 4 mg PO Q6H Qty: 14 0RF morphine 15 mg tablet 15 mg PO Q12H PRN (Reason: severe kidney stones pain ) Qty: 14 0RF cyclobenzaprine 10 mg tablet 10 mg PO TID PRN (Reason: muscle spasm) Qty: 14 0RF prednisone 20 mg tablet 40 mg PO DAILY 4 Days Qty: 8 0RF prednisone 20 mg tablet 40 mg PO DAILY Qty: 10 0RF albuterol sulfate [ProAir HFA] 90 mcg/actuation HFA aerosol inhaler 2 puff inhalation Q4-6H PRN (Reason: Cough) Qty: 8.5 0RF albuterol sulfate 2.5 mg /3 mL (0.083 %) solution for nebulization 2.5 mg inhalation Q4-6H PRN (Reason: shortness of breath or wheezing) Qty: 90 0RF codeine-guaifenesin 10-100 mg/5 mL liquid 10 ml PO Q6H PRN (Reason: cough) Qty: 237 0RF levofloxacin 500 mg tablet 500 mg PO DAILY 7 Days Qty: 7 0RF benzonatate 200 mg capsule 200 mg PO TID PRN (Reason: cough) Qty: 10 0RF morphine 15 mg tablet 15 mg PO Q6H PRN (Reason: pain) Qty: 7 0RF Rx Instructions: Partial Fill upon patient request. Narcotic, no driving for 6 hours after taking this medication cyclobenzaprine 5 mg tablet 5 mg PO TID PRN (Reason: muscle spasm) Qty: 10 0RF Rx Instructions: This medication causes drowsiness, no driving for 8 hours after taking Referrals: [facility] [Provider Group] (Call to establish and follow up with a primary care provider. If you already have a primary care provider, please follow up with them. ) [facility] [place] [facility] [[facility]] (Call to establish and follow up with a primary care provider. If you already have a primary care provider, please follow up with them. ) [facility] [place] [facility] [Provider Group] (Call to establish and follow up with a primary care provider. If you already have a primary care provider, please follow up with them. ) Stand Alone Forms: Work/School Release Interventions: ED Discharge Assessment Last Done: 02/17/22 08:18 Discharge Date/Time: 02/17/22 08:18 Print Language: Egyptian
== END 2022-02-17 08:18 | disposition home or self-care (01) ==
PROVIDERS: Emergency Provider Emergency Medicine Emergency Medical Services
DX: M25.442 Effusion, left hand (principal); E11.9 Type 2 diabetes mellitus without complications; I10 Essential (primary) hypertension; E78.5 Hyperlipidemia, unspecified; F12.90 Cannabis use, unspecified, uncomplicated; Z79.84 Long term (current) use of oral hypoglycemic drugs; Z79.899 Other long term (current) drug therapy
CPT/HCPCS: 99282

== ENCOUNTER 2022-03-11 01:07 | Emergency (ER) | payer OTHER, SELFPAY ==
[2022-03-11 01:24] VITALS: BP 155/96; PULSE 87; RESP 20; TEMP 36.1; O2SAT 98; BMI 38.0
[2022-03-11 02:02] VITALS: BP 156/93; PULSE 69; RESP 14; TEMP 36.6; O2SAT 97
--- OUTSIDE RECORDS SUMMARY | 2022-03-11 02:06 | XMS_ITS | Continuity of Care Document ---
:1980 Author Organization [address] [place] [address]- Care Team Providers Name Role Phone Paulina CARSON, Thu Primary Care Physician Encounter [facility] [place] Date(s): 03/13/19 - 04/24/[address] [place] [address]- [facility] Attending Physician: Poncho Nascimetno MD Referring Physician: Aileen Robin NP Allergies, Adverse Reactions, Alerts Substance Reaction Severity Status codeine Atypical migraine Active erythromycin N&V - Nausea and vomiting Active azithromycin Nausea and vomiting Active Vicodin Hives/Rash Active Reglan agitation (has ripped her IVs out) Active increased anxiety Percocet 5/325 Hives/Rash Active Immunizations Given and Recorded Vaccine Date Status Refusal Reason pneumococcal 23-valent vaccine 03/06/16 Given influenza virus vaccine, inactivated 01/27/16 Given influenza virus vaccine, inactivated 05/05/15 Given influenza virus vaccine, inactivated 04/23/13 Given tetanus/diphtheria/pertussis, acel(Tdap) 03/19/12 Given Medications 0.2 % nifedipine hydrophylic ointment 0.2 % nifedipine hydrophylic ointment, See Instructions, # 30 Gm, Refills 1, Tot. Refills 1, Maintenance, apply a pea size amout to anal area for pain, use 3-4x a day for 6 weeks, 03/13/19 11:16:52 EST, Compound Start Date: 03/13/19 Status: Orderedalbuterol 0.083% inhalation solution 3 mL = 2.5 mg, Inhalation, Every 6 hours, PRN Wheezing/Shortness of Breath, # 25 each, 0 Refills, Maintenance, 05/26/17 13:53:35, Solution Start Date: 05/26/17 Stop Date: 06/25/17 Status: Orderedalbuterol 0.083% inhalation solution 3 mL = 2.5 mg, Inhalation, Every 4 hours, PRN for wheezing, # 50 each, 1 Refills, Maintenance, 04/11/18 17:15:24 EST, Solution Start Date: 04/11/18 Status: Orderedchantix 1mg tablet 1 tablet = 1 mg, By Mouth, 2 times a day, after meals, # 60 tablet, 3 Refills, Maintenance, 199:30:16 EST, Tablet Start Date: 03/01/19 Stop Date: 06/29/19 Status: OrderedChantix Starter Pack 0.5 mg-1 mg oral tablet 1 tablet, By Mouth, 2 times a day, as directed on package labeling, # 60 tablet, 0 Refills, Maintenance, 03/01/19 9:30:22 EST, 1 tablet By Mouth 2 times a day,x30 days,Instr:as directed on package labeling Start Date: 03/01/19 Stop Date: 03/31/19 Status: OrderedclonazePAM 0.5 mg oral tablet 1 tablet = 0.5 mg, By Mouth, Daily at bedtime, PRN Insomnia, 0 Refills, Maintenance, 02/23/17 10:23:32 Start Date: 02/23/17 Status: OrderedColace sodium 100 mg oral capsule 100 mg, 1, capsule, By Mouth, 2 times a day, PRN, # 60 capsule, Refills 1, Tot. Refills 1, Maintenance, for constipation, 02/06/18 16:34:28 EDT, Route to Pharmacy Electronically, [id number], [facility]/pharmacy #[id number] Start Date: 02/06/18 Stop Date: 04/07/18 Status: OrderedCPAP Equipment See Instructions, # 1 each, Refills 12, Tot. Refills 12, Maintenance, cpap mask, tubing, filters, head gear, chin strap, water chamber dx sleep apnea, 12/10/14 10:46:27, Compound Start Date: 12/10/14 Status: OrderedDexedrine Spansule 15 mg oral capsule, extended release 3 capsule = 45 mg, By Mouth, Daily in AM, 0 Refills, Maintenance, 01/20/15 9:03:36 Start Date: 01/20/15 Status: OrderedEnoxaparin 0 Refills, Maintenance, 03/14/17 14:34:51 Start Date: 03/14/17 Status: Orderedibuprofen 600 mg oral tablet 600 mg, 1, tablet, By Mouth, Every 6 hours, # 40 tablet, Refills 0, Tot. Refills 0, Maintenance, 02/27/17 14:32:38, Print Requisition Start Date: 02/27/17 Status: OrderedImitrex 100 mg oral tablet 1 tablet = 100 mg, By Mouth, Daily, PRN as needed for migraine headache, may repeat dose in 2 hours if needed, # 9 tablet, 5 Refills, Soft Stop, 03/01/19 9:27:13 EST, Tablet Start Date: 03/01/19 Stop Date: 08/28/19 Status: Orderedmetoprolol 25 mg oral tablet, extended release 25 mg, 1, tablet, By Mouth, Daily, # 30 tablet, Refills 2, Tot. Refills 2, Maintenance, 03/01/19 9:24:08 EST, Route to Pharmacy Electronically, [id number], [facility]/pharmacy #[id number] Start Date: 03/01/19 Stop Date: 05/30/19 Status: OrderedNexIUM 24HR 20 mg oral delayed release capsule 2 capsule = 40 mg, By Mouth, Daily, NO SUBSTITUTIONS, # 60 capsule, 5 Refills, Maintenance, 02/07/1816:34:35 EDT Start Date: 02/06/18 Stop Date: 08/05/18 Status: OrderedNexIUM 24HR 20 mg oral delayed release capsule 2 capsule = 40 mg, By Mouth, Daily, NO SUBSTITUTIONS, # 60 capsule, 5 Refills, Maintenance, :25:44 EST Start Date: 03/01/19 Stop Date: 08/28/19 Status: OrderedVraylar 1.5 mg oral capsule 1 capsule = 1.5 mg, By Mouth, Daily, 0 Refills, Maintenance, 01/09/17 10:57:34 Start Date: 01/09/17 Status: OrderedWellbutrin 300mgs, By Mouth, Daily, 0 Refills, Maintenance, 10/13/16 9:26:52 Start Date: 10/13/16 Status: OrderedZofran 4 mg oral tablet 1 tablet = 4 mg, By Mouth, Every 8 hours, PRN as needed for nausea/vomiting, # 7 tablet, 0 Refills, Maintenance, 04/04/18 8:54:50 EST, Tablet Start Date: 04/04/18 Stop Date: 04/11/18 Status: Ordered Problem List Condition Effective Dates Status Health Status Informant Acid reflux(Confirmed) 2003 Active Anxiety(Confirmed) Active Asthma(Confirmed) 2004 Active Attention deficit hyperactivity Active disorder(Confirmed) Benign liver cyst(Confirmed) 2008 Active Bipolar affective disorder(Confirmed) Active Last pap smear 12/05/11 negative with Active negative HPV. Pap smears no longer necessary - her cervix has been removed. Cervical pathology at the time of the hysterectomy was negative(Confirmed) Marijuana use(Confirmed) Active Chronic low back pain(Confirmed) Active Chronic pelvic pain in Active female(Confirmed) Depression(Confirmed) Active Nipple discharge in female(Confirmed) Active Dysmenorrhea - ongoing despite the Active hysterectomy(Confirmed) Dyspareunia(Confirmed) Active Endometriosis/Endometriomas - proven Active by laparoscopy.(Confirmed) Family history of drug Active addiction(Confirmed) Family history of bipolar Active disorder(Confirmed) Fibromyalgia(Confirmed) Active Gambling problem(Confirmed) Active Genital herpes(Confirmed) Active 2 para 2. 02/21/02 Active section. 07/31/08 section.(Confirmed) Hypertension(Confirmed) Active Urinary frequency(Confirmed) Active Kidney stones(Confirmed) Active Memory loss(Confirmed) Active Menopausal symptoms(Confirmed) Active Migraine(Confirmed) 1997 Active Obesity(Confirmed) Active IGNACIO (obstructive sleep Active apnea)(Confirmed)1 Poor historian(Confirmed) Active PTSD (post-traumatic stress Active disorder)(Confirmed) Pulmonary embolus, right(Confirmed) Active Restless leg syndrome(Confirmed) Active Social problem - with severe Active depression/anxiety(Confirmed) Smoker. Rico has worked in the past Active x 2 but the most recent trial failed and gave patient nightmares, etc.(Confirmed) Adnexal mass - right side 7.6 cm, Active suspected endometrioma(Confirmed) Urinary incontinence(Confirmed) Active Vitamin D Deficiency(Confirmed) Active 1Mild, not on CPAP Social History Social History Type Response Smoking Status Current every day smoker; To bacco user in household: Yes entered on: 06/24/16 Sex
--- OUTSIDE RECORDS SUMMARY | 2022-03-11 02:06 | XMS_ITS | Continuity of Care Document ---
:1980 Demographics Address [address] [place] [address] [address] [place] [address] Mobile Preferred Language so Marital Status Single Jewish Affiliation None Race White Ethnic Group Not or Author Organization [facility] Adult Address [address] [place] [address]- Care Team Providers Name Role Phone Thu Gallardo NP Primary Care Phys[place] [facility] [place]/02/19 [facility] Adult [address] [place] [address]- [facility] Attending Physician: Thu Gallardo NP Allergies, Adverse Reactions, Alerts Substance Reaction [...] 13:53:35, Solution Start Date: 05/26/17 Stop Date: 3/18/18 Status: Orderedalbuterol 0.083% inhalation solution 3 mL [...] 02/06/18 16:34:28 EDT, Route to Pharmacy Electronically, [id number], [facility]/pharmacy #[id number] Start Date: 02/06/18 Stop Date: 04/07/18 [...] Maintenance, 03/14/17 14:34:51 Start Date: 03/14/17 Status: OrderedFlonase 50 mcg/inh nasal spray 1 sprays, Nares, Both, 2 times a day, for 14 days, # 16 Gm, 0 Refills, Acute 05/10/19 10:11:00 EST, 04/26/19 10:11:00 EST, [place], [facility]/pharmacy #[id number], 1 sprays Nares, Both 2 times a day,x14 days, 160, cm, 04/26/19 9:37:00 EST, Height, 98, kg, 04/11/18... Start Date: 04/26/19 Stop Date: 05/10/19 Status: Orderedibuprofen 600 mg oral tablet 600 [...] Start Date: 03/01/19 Stop Date: 08/28/19 Status: Orderedlevocetirizine 5 mg oral tablet 1 tablet = 5 mg, By Mouth, Daily in PM, for 14 days, # 14 tablet, 0 Refills, Acute 05/10/19 10:12:00EST, 04/26/19 10:12:00 EST, Tablet, [facility]/pharmacy #1, 1 tablet By Mouth Daily in PM,x14 days, 160,cm, 04/26/19 9:37:00 EST, Height, 98, kg, ... Start Date: 04/26/19 Stop Date: 05/10/19 Status: Orderedmetoprolol 25 mg oral tablet, extended release 25 mg, 1, tablet, By Mouth, Daily, # 30 tablet, Refills 2, Tot. Refills 2, Maintenance, 05/30/19 9:24:00 EST, Route to Pharmacy Electronically, [facility]/pharmacy #207, 160, cm, 04/26/19 9:37:00 EST, Height, 98, kg, 04/11/18 16:26:00 EST, Dry Weight Start Date: 05/30/19 Stop Date: 08/28/19 Status: Orderedmetoprolol 25 mg oral tablet, extended release 25 mg, 1, tablet, By Mouth, Daily, for 30 days, # 30 tablet, Refills 2, Tot. Refills 2, Hard Stop 05/30/19 9:24:08 EST, 03/01/19 9:24:08 EST, Route to Pharmacy Electronically, [facility]/pharmacy #207 Start Date: 03/01/19 Stop Date: 05/30/19 Status: [...] Start Date: 03/01/19 Stop Date: 08/28/19 Status: Orderedomeprazole 20 mg oral enteric coated capsule 1 capsule = 20 mg, By Mouth, 2 times a day, # 60 capsule, 2 Refills, Maintenance, 04/26/19 12:17:00 EST, [facility]/pharmacy #[id number], 160, cm, 04/26/19 9:37:00 EST, Height, 98, kg, 04/11/18 16:26:00 EST, Dry Weight Start Date: 04/26/19 Stop Date: 07/25/19 Status: OrderedVraylar 1.5 mg oral capsule 1 [...] problem - with severe Active depression/anxiety(Confirmed) Smoker. Chantix has worked in the past Active x [...]
--- OUTSIDE RECORDS SUMMARY | 2022-03-11 02:06 | XMS_ITS | Continuity of Care Document ---
:1980 Author Organization [facility] Adult Address [address] [place] [address]- Care Team Providers Name Role Phone Paulina CARSON, Thu Primary Care Physician Encounter [facility] [place] Date(s): 03/10/20 - 03/17/20 [facility] Adult [address] [place] [address]- Encounter Diagnosis Nodule of soft tissue (Discharge Diagnosis) - 03/10/20 Attending Physician: Jenn Deras NP Allergies, Adverse Reactions, Alerts Substance Reaction Severity Status codeine Atypical migraine Active erythromycin N&V - Nausea and vomiting Active azithromycin Nausea and vomiting Active Vicodin Hives/Rash Active Reglan agitation (has ripped her IVs out) Active increased anxiety Percocet 5/ Hives/Rash Active Immunizations Given and Recorded Vaccine Date Status Refusal Reason influenza virus vaccine, inactivated1 05/23/19 Given influenza virus vaccine, inactivated 01/27/16 Given influenza virus vaccine, inactivated 05/05/15 Given influenza virus vaccine, inactivated 04/23/13 Given pneumococcal 23-valent vaccine 03/06/16 Given tetanus/diphtheria/pertussis, acel(Tdap) 03/19/12 Given 1Result Comment: [facility] 58045-698-66 Medications 0.2 % nifedipine hydrophylic ointment 0.2 % nifedipine hydrophylic ointment, See Instructions, # 30 Gm, Refills 1, Tot. Refills 1, Maintenance, apply a pea size amout to anal area for pain, use 3-4x a day for 6 weeks, 03/13/19 11:16:52 EST, Compound Start Date: 03/13/19 Status: Orderedacetaminophen 325 mg oral tablet 650 mg, By Mouth, Every 4 hours, PRN, not to exceed 4000 mg/day, Refills 0, Maintenance, Pain , Mild, 07/04/19 13:32:00 EDT Start Date: 07/04/19 Status: Orderedalbuterol 0.083% inhalation solution 3 mL = 2.5 mg, Inhalation, Every 6 hours, PRN Wheezing/Shortness of Breath, # 25 each, 0 Refills, Maintenance, 05/26/17 13:53:35, Solution Start Date: 05/26/17 Stop Date: 06/25/17 Status: OrderedclonazePAM 0.5 mg oral tablet 1 tablet = 0.5 mg, By Mouth, Daily at bedtime, PRN Insomnia, 0 Refills, Maintenance, 02/23/17 10:23:32 Start Date: 02/23/17 Status: OrderedColace sodium 100 mg oral capsule 100 mg, 1, capsule, By Mouth, 2 times a day, PRN, # 60 capsule, Refills 1, Tot. Refills 1, Maintenance, for constipation, 02/06/18 16:34:28 EDT, Route to Pharmacy Electronically, [id number], [facility]/pharmacy #[id number] Start Date: 02/06/18 Stop Date: [...] Maintenance, 01/20/15 9:03:36 Start Date: 01/20/15 Status: OrderedImitrex 100 mg oral tablet 1 tablet = 100 mg, By Mouth, Daily, PRN as needed for migraine headache, may repeat dose in 2 hours if needed, # 9 tablet, 5 Refills, Soft Stop, 03/10/20 9:11:00 EST, Tablet, [facility], 160, cm, 03/10/20 8:33:00 EST, Height, 99.9, kg, 1... Start Date: 03/10/20 Stop Date: 09/06/20 Status: Orderedmetoprolol 25 mg oral tablet, extended release 25 mg, 1, tablet, By Mouth, Daily, # 30 tablet, Refills 2, Tot. Refills 2, Maintenance, 03/10/20 9:11:00 EST, Route to Pharmacy Electronically, [facility], 160, cm, 03/10/20 8:33:00 EST, Height, 99.9, kg, 01/11/20 15:23:00 EDT, Dry Weight Start Date: 03/10/20 Stop Date: 06/08/20 Status: OrderedNuLYTELY with Flavor Packs oral powder for reconstitution See Instructions, 240 mL By Mouth Every 15 minutes, # 4,000 mL, 0 Refills, Maintenance, 11/01/19 11:26:00 EDT, [facility]/pharmacy #[id number], 240 mL By Mouth Every 15 minutes, 160, cm, 11/01/19 10:13:00 EDT, Height, 98.5, kg, 07/03/19 21:15:00 EDT, Dry Weight Start Date: 11/01/19 Status: Orderedomeprazole 20 mg oral enteric coated capsule 1 capsule = 20 mg, By Mouth, 2 times a day, # 60 capsule, 2 Refills, Maintenance, 03/10/20 9:11:00 EST, [facility], 160, cm, 03/10/20 8:33:00 EST, Height, 99.9, kg, 01/11/20 15:23:00 EDT,Dry Weight Start Date: 03/10/20 Stop Date: 06/08/20 Status: Orderedondansetron 4 mg oral tablet 1 tablet = 4 mg, By Mouth, 3 times a day, # 21 tablet, 0 Refills, Maintenance, 03/10/20 14:57:00 EST, [facility], Partial fill upon patient request if the prescription is for a schedule II opioid drug., 160, cm, 03/10/20 8:33:00 EST, Hei... Start Date: 03/10/20 Stop Date: 03/17/20 Status: OrderedQUEtiapine 25 mg oral tablet 25 mg, 1, tablet, By Mouth, Daily at bedtime, # 30 tablet, Refills 0, Maintenance, 07/03/19 21:08:00EDT Start Date: 07/03/19 Status: OrderedVraylar 1.5 mg oral capsule 1 capsule = 1.5 mg, By Mouth, Daily, 0 Refills, Maintenance, 01/09/17 10:57:34 Start Date: 01/09/17 Status: OrderedWellbutrin 300mgs, By Mouth, Daily, 0 Refills, Maintenance, 10/13/16 9:26:52 Start Date: 10/13/16 Status: OrderedZyrTEC 10 mg oral tablet 1 tablet = 10 mg, By Mouth, Daily, # 30 tablet, 5 Refills, Maintenance, 11/22/19 11:33:00 EDT, Tablet, [facility], 160, cm, 11/01/19 10:13:00 EDT, Height, 98.5, kg, 07/03/19 21:15:00 EDT,Dry Weight Start Date: 11/22/19 Status: Ordered Problem List Condition Effective Dates Status Health Status Informant Acid reflux(Confirmed) 2002 Active Anxiety(Confirmed) Active Asthma(Confirmed) 2004 Active Attention deficit hyperactivity Active disorder(Confirmed) Benign liver cyst(Confirmed) 2009 Active Bipolar affective disorder(Confirmed) Active Last pap [...] D Deficiency(Confirmed) Active 1Mild, not on CPAP Diagnosis Diagnosis Type Effective Dates Health Status Clinical In formant Service Nodule of soft Discharge 03/10/20 tissue Diagnosis Vital Signs Most recent to oldest [Reference Range]: 1 Height 160 cm (03/10/20 8:33 AM) Social History Social History Type Response Smoking Status Former smoker, quit more jorge l n 30 days ago entered on: 07/08/19 Sex Medical Equipment Implanted Date:07/04/19 Target Site:Abdomen Description Quantity MRI Company Model MESH VENTRALIGHT ECHO CIR 6 - BARD ([id number]) 1 Bard Unknown KEYLA: [id number] Assigning Authority: FDA
--- OUTSIDE RECORDS SUMMARY | 2022-03-11 02:06 | XMS_ITS | Continuity of Care Document ---
:1980 Author Organization [facility] Adult Address [address] [place] [address]- Care Team Providers Name Role Phone Paulina CARSON, Thu Primary Care Physician [place] [facility] [place] 10/14/21 - 11/13/21 [facility] [address] [place] [address]- Attending Physician: Admtr, Ar8 Allergies, Adverse Reactions, Alerts Substance Reaction Severity Status codeine Atypical migraine Active erythromycin Oxycodone Active Azithromycin allergy N&V - Nausea and vomiting azithromycin Nausea and vomiting Active acetaminophen-oxycodone Active Vicodin Hives/Rash Active Percocet 5/325 Hives/Rash Active Reglan agitation (has ripped her IVs out) Active increased anxiety Immunizations Given and Recorded Vaccine Date Status Refusal Reason tetanus/diphtheria/pertussis, acel(Tdap) 01/17/21 Recorde d tetanus/diphtheria/pertussis, acel(Tdap) 03/19/12 Given SARS-CoV-2 (COVID-19) Ad26 vaccine 08/14/20 Recorded influenza virus vaccine, inactivated1 05/23/19 Given influenza virus vaccine, inactivated 01/27/16 Given influenza virus vaccine, inactivated 05/05/15 Given influenza virus vaccine, inactivated 04/23/13 Given pneumococcal 23-valent vaccine 03/06/16 Given 1Result Comment: [facility] 10809-505-17 Medications albuterol 0.083% inhalation solution 3 mL = 2.5 mg, Inhalation, Every 6 hours, PRN Wheezing/Shortness of Breath, # 25 each, 0 Refills, Maintenance, 05/26/17 13:53:35, Solution Start Date: 05/26/17 Stop Date: 06/25/17 Status: Orderedalbuterol CFC free 90 mcg/inh inhalation aerosol 1, puffs, Inhalation, 4 times a day, PRN, # 1 each, Refills 3, Tot. Refills 3, Maintenance, 10/29/2113:13:00 EDT, Aerosol, Route to Pharmacy Electronically, [id number], [facility]/pharmacy #[id number], 161, cm, 10/29/20 12:39:00 EDT, Hei... Start Date: 10/29/20 Stop Date: 02/26/21 Status: OrderedclonazePAM 0.5 mg oral tablet 1 tablet = 0.5 mg, By Mouth, Daily at bedtime, PRN Insomnia, 0 Refills, Maintenance, 02/23/17 10:23:32 Start Date: 02/23/17 Status: OrderedCPAP Equipment See Instructions, # 1 each, Refills 12, Tot. Refills 12, Maintenance, cpap mask, tubing, filters, head gear, chin strap, water chamber dx sleep apnea, 12/10/14 10:46:27, Compound Start Date: 12/10/14 Status: OrderedDexedrine Spansule 15 mg oral capsule, extended release 3 capsule = 45 mg, By Mouth, Daily in AM, 0 Refills, Maintenance, 01/20/15 9:03:36 Start Date: 01/20/15 Status: OrderedFlovent HFA 220 mcg/inh inhalation aerosol 2 puffs, Inhalation, 2 times a day, # 12 each, 5 Refills, [id number], 161, cm, 10/14/21 8:43:00EDT, Height, 99.8, kg, 10/23/20 22:45:00 EDT, Dry Weight Start Date: 11/07/21 Status: OrderedFreestyle Lite Lancets See Instructions, # 100 each, Refills 3, Tot. Refills 3, Maintenance, DX: E11.9 test blood sugars 3 times daily, 07/21/20 11:12:00 EDT, Supply, 160, cm, 06/04/20 0:50:00 EST, Height, 100, kg, 06/04/20 0:50:00 EST, Dry Weight Start Date: 07/21/20 Status: OrderedFreestyle Lite Monitor See Instructions, # 1 each, Maintenance, DX: E11.9 Test blood sugars 3 times daily, 07/21/20 11:11:00 EDT, Supply, 160, cm, 06/04/20 0:50:00 EST, Height, 100, kg, 06/04/20 0:50:00 EST, Dry Weight Start Date: 07/21/20 Status: OrderedFreestyle Lite Test Strips See Instructions, # 100 each, Refills 3, Tot. Refills 3, Maintenance, DX:E11.9 Test blood sugars 3 times daily, 07/21/20 11:12:00 EDT, Supply, 160, cm, 06/04/20 0:50:00 EST, Height, 100, kg, 06/04/20 0:50:00 EST, Dry Weight Start Date: 07/21/20 Status: Orderedhydrocortisone topical 25 mg suppository 1 supp = 25 mg, Rectally, 2 times a day, # 28 supp, 0 Refills, Maintenance, 05/10/21 13:30:00 EST, Suppository, [facility]/pharmacy #[id number], Partial fill upon patient request if the prescription is for a schedule II opioid drug., 161, cm, 10/29/20 12:39:00 EDT... Start Date: 05/10/21 Stop Date: 05/24/21 Status: OrderedImitrex 100 mg oral tablet 1 tablet = 100 mg, By Mouth, Daily, PRN as needed for migraine headache, may repeat dose in 2 hours if needed, # 9 tablet, 5 Refills, Soft Stop, 03/10/20 9:11:00 EST, Tablet, [facility], 160, cm, 03/10/20 8:33:00 EST, Height, 99.9, kg, 1... Start Date: 03/10/20 Stop Date: 09/06/20 Status: Orderedlidocaine 5% topical film 1 patch, Topically, Daily, remove patches after 12 hours, # 30 patch, 0 Refills, Maintenance, 10/23/20 23:42:00 EDT, [facility]/pharmacy #[id number], Partial fill upon patient request if the prescription is for a schedule II opioid drug., 1 patch Topically Daily,x... Start Date: 10/23/20 Stop Date: 11/22/20 Status: OrderedmetFORMIN 500 mg oral tablet 1 tablet, By Mouth, 2 times a day, # 60 tablet, 5 Refills, [facility], 161, cm, 10/29/20 12:39:00 EDT, Height, 99.8, kg, 10/23/20 22:45:00 EDT, Dry Weight Start Date: 05/07/21 Status: OrderedMetoprolol Succinate ER 25 mg oral tablet, extended release 1 tablet, By Mouth, Daily, # 30 tablet, 2 Refills, [facility], 161, cm, 10/29/20 12:39:00 EDT, Height, 99.8, kg, 10/23/20 22:45:00 EDT, Dry Weight Start Date: 04/30/21 Status: Orderednaproxen 500 mg oral tablet 1 tablet = 500 mg, By Mouth, 2 times a day, # 60 tablet, 0 Refills, Maintenance, 10/14/21 8:27:00 EDT, Tablet, [facility]/pharmacy #[id number], Partial fill upon patient request if the prescription is for a schedule II opioid drug., 161, cm, 10/14/21 8:07:00 EDT,... Start Date: 10/14/21 Stop Date: 11/13/21 Status: Orderedomeprazole 20 mg oral enteric coated capsule 1 capsule, By Mouth, 2 times a day, # 60 capsule, 2 Refills, [id number], 161, cm, 10/29/20 12:39:00 EDT, Height, 99.8, kg, 10/23/20 22:45:00 EDT, Dry Weight Start Date: 07/08/21 Status: Orderedondansetron 4 mg oral tablet, disintegrating 1 tablet = 4 mg, By Mouth, 3 times a day, # 21 tablet, 1 Refills, Maintenance, 03/20/20 13:04:00 EST, [facility], Partial fill upon patient request if the prescription is for a schedule II opioid drug., 160, cm, 03/10/20 8:33:00 EST, [place]... Start Date: 03/20/20 Status: OrderedQUEtiapine 25 mg oral tablet 25 [...] mg, By Mouth, Every 8 hours, PRN Nausea & Vomiting, # 21 tablet, 0 Refills, Maintenance, 10/14/21 8:38:00 EDT, Tablet, [facility]/pharmacy #[id number], Partial fill upon patient request if the prescription is for a schedule II opioid drug., 161, cm, 0... Start Date: 10/14/21 Status: Ordered Problem List Condition Effective Dates [...] Active Menopausal symptoms(Confirmed) Active Migraine(Confirmed) 1997 Active Obese class II(Confirmed) Active Obesity(Confirmed) Active IGNACIO (obstructive sleep Active apnea)(Confirmed)1 Poor historian(Confirmed) Active PTSD (post-traumatic stress Active disorder)(Confirmed) Pulmonary embolus, right(Confirmed) Active Restless leg syndrome(Confirmed) Active Social problem - with severe Active depression/anxiety(Confirmed) Smoker. Mundojesus has worked in the past Active x 2 but the most recent trial failed and gave patient nightmares, etc.(Confirmed) Adnexal mass - right side 7.6 cm, Active suspected endometrioma(Confirmed) Urinary incontinence(Confirmed) Active Vitamin D Deficiency(Confirmed) Active 1Mild, not on CPAP Social History Social History Type Response Tobacco Use: 4 or less cigarettes(le ss than 1/4 pack)/day in last 30 days. Sex Medical Equipment Implanted Date:07/04/19 Target Site:Abdomen Description Quantity MRI Company Model MESH VENTRALIGHT ECHO CIR 6 - BARD ([id number]) 1 Bard Unknown KEYLA: {01}[id number] Assigning Authority: FDA
--- OUTSIDE RECORDS SUMMARY | 2022-03-11 02:06 | XMS_ITS | Continuity of Care Document ---
:1980 Author Organization [facility] Address [address] [place] [address]- Care Team Providers Name Role Phone Paulina CARSON, Thu Primary Care Physician [place] [facility] [place]s): 11/01/19 - 12/01/19 [facility] [address] [place] [address] [facility] Attending Physician: Olga Horton Admitting Physician: AdmtrOlga Referring Physician: Admtr, Ar8 Allergies, Adverse Reactions, Alerts Substance Reaction Severity Status codeine Atypical migraine Active erythromycin N&V - Nausea and vomiting Active azithromycin Nausea and vomiting Active Vicodin Hives/Rash Active Reglan agitation (has ripped her IVs out) Active increased anxiety Percocet Hives/Rash Active Immunizations Given and Recorded Vaccine Date Status Refusal Reason influenza virus vaccine, inactivated1 05/23/19 Given influenza virus vaccine, inactivated 01/27/16 Given influenza virus vaccine, inactivated 05/05/15 Given influenza virus vaccine, inactivated 04/23/13 Given pneumococcal 23-valent vaccine 03/06/16 Given tetanus/diphtheria/pertussis, acel(Tdap) 03/19/12 Given 1Result Comment: [facility] [id number] Medications 0.2 % nifedipine hydrophylic ointment 0.2 [...] 02/06/18 16:34:28 EDT, Route to Pharmacy Electronically, [id number], [facility]/pharmacy #[id number] Start Date: 02/06/18 Stop [...] # 9 tablet, 5 Refills, Soft Stop, 08/20/19 13:35:00 EDT, Tablet, [facility],160, cm, 08/20/19 10:25:00 EDT, Height, 98.5, kg,... Start Date: 08/20/19 Stop Date: 02/16/20 Status: Orderedmetoprolol 25 mg oral tablet, extended release 25 mg, 1, tablet, By Mouth, Daily, # 30 tablet, Refills 2, Tot. Refills 2, Maintenance, 08/20/19 13:34:00 EDT, Route to Pharmacy Electronically, [facility], 160, cm, 08/20/19 10:25:00 EDT, Height, 98.5, kg, 07/03/19 21:15:00 EDT, Dry Weight Start Date: 08/20/19 Stop Date: 11/18/19 Status: OrderedNuLYTELY with Flavor Packs oral powder for reconstitution See Instructions, 240 mL By Mouth Every 15 minutes, # 4,000 mL, 0 Refills, Maintenance, 11/01/19 11:26:00 EDT, [facility]/pharmacy #[id number], 240 mL By Mouth Every 15 minutes, 160, cm, 11/01/19 10:13:00 EDT, Height, 98.5, kg, 07/03/19 21:15:00 EDT, Dry Weight Start Date: 11/01/19 Status: Orderedomeprazole 20 mg oral enteric coated capsule 1 capsule = 20 mg, By Mouth, 2 times a day, # 60 capsule, 2 Refills, Maintenance, 10/28/19 14:45:00 EDT, [facility]/pharmacy #[id number], 160, cm, 08/20/19 10:25:00 EDT, Height, 98.5, kg, 07/03/19 21:15:00 EDT, DryWeight Start Date: 10/28/19 Stop Date: 01/26/20 Status: Orderedondansetron 4 mg oral disintegrating strip 1 each = 4 mg, By Mouth, 3 times a day, PRN Nausea & Vomiting, subligual, # 21 capsule, 0 Refills, Maintenance, 10/28/19 14:46:00 EDT, [facility]/pharmacy #[id number], 160, cm, 08/20/19 10:25:00 EDT, Height, 98.5, kg, 07/03/19 21:15:00 EDT, Dry Weight Start Date: 10/28/19 Stop Date: 11/04/19 Status: OrderedQUEtiapine 25 mg oral tablet 25 [...] 5 Refills, Maintenance, 11/22/19 11:33:00 EDT, Tablet, [facility], 160, cm, 11/01/19 10:13:00 EDT, [...] MESH VENTRALIGHT ECHO CIR 6 - BARD ([id number]) 1 Bard Unknown KEYLA: {01}[id number] Assigning Authority: FDA
--- OUTSIDE RECORDS SUMMARY | 2022-03-11 02:06 | XMS_ITS | Continuity of Care Document ---
:1980 Author Organization [address] [place] [address]- Care Team Providers Name Role Phone Paulina CARSON, Thu Primary Care Physician Encounter [facility] Date(s): 05/04/20 - 05/11/[address] [place] [address]- Attending Physician: Azam ROCHA, Poncho Referring Physician: Augusta CARSON, Jenn Allergies, Adverse Reactions, Alerts Substance Reaction Severity Status codeine Atypical migraine Active erythromycin N&V - Nausea and vomiting Active Reglan agitation (has ripped her IVs out) Active increased anxiety azithromycin Nausea and vomiting Active Vicodin Hives/Rash Active Percocet 5/325 Hives/Rash Active Immunizations Given and Recorded Vaccine Date Status Refusal Reason influenza virus vaccine, inactivated1 05/23/19 Given influenza virus vaccine, inactivated 01/27/16 Given influenza virus vaccine, inactivated 05/05/15 Given influenza virus vaccine, inactivated 04/23/13 Given pneumococcal 23-valent vaccine 03/06/16 Given tetanus/diphtheria/pertussis, acel(Tdap) 03/19/12 Given 1Result Comment: FLU [facility] 23315-484-80 Medications 0.2 % nifedipine hydrophylic ointment 0.2 [...] 02/06/18 16:34:28 EDT, Route to Pharmacy Electronically, [id number], [facility]/pharmacy #[id number] Start Date: 02/06/18 Stop [...] Refills, Soft Stop, 03/10/20 9:11:00 EST, Tablet, [facility], 160, cm, 03/10/20 8:33:00 EST, Height, 99.9, kg, 1... Start Date: 03/10/20 Stop Date: 09/06/20 Status: Orderedmetoprolol 25 mg oral tablet, extended release 25 mg, 1, tablet, By Mouth, Daily, # 30 tablet, Refills 2, Tot. Refills 2, Maintenance, 03/10/20 9:11:00 EST, Route to Pharmacy Electronically, [facility], 160, cm, 03/10/20 8:33:00 EST, Height, 99.9, kg, 01/11/20 15:23:00 EDT, Dry Weight Start Date: 03/10/20 Stop Date: 06/08/20 Status: OrderedNuLYTELY with Flavor Packs oral powder for reconstitution See Instructions, 240 mL By Mouth Every 15 minutes, # 4,000 mL, 0 Refills, Maintenance, 11/01/19 11:26:00 EDT, [facility]/pharmacy #[id number], 240 mL By Mouth Every 15 minutes, 160, cm, 11/01/19 10:13:00 EDT, Height, 98.5, kg, 07/03/19 21:15:00 EDT, Dry Weight Start Date: 11/01/19 Status: Orderedomeprazole 20 mg oral enteric coated capsule 1 capsule = 20 mg, By Mouth, 2 times a day, # 60 capsule, 2 Refills, Maintenance, 03/10/20 9:11:00 EST, [facility], 160, cm, 03/10/20 8:33:00 EST, Height, 99.9, kg, 01/11/20 15:23:00 EDT,Dry Weight Start Date: 03/10/20 Stop Date: 06/08/20 Status: Orderedondansetron 4 mg oral tablet, disintegrating 1 tablet = 4 mg, By Mouth, 3 times a day, # 21 tablet, 1 Refills, Maintenance, 03/20/20 13:04:00 EST, [facility], Partial fill upon patient request if the prescription is for a schedule II opioid drug., 160, cm, 03/10/20 8:33:00 EST, Hei... Start Date: 03/20/20 Status: OrderedQUEtiapine 25 mg [...] 5 Refills, Maintenance, 11/22/19 11:33:00 EDT, Tablet, [facility], 160, cm, 11/01/19 10:13:00 EDT, [...] D Deficiency(Confirmed) Active 1Mild, not on CPAP Vital Signs Most recent to oldest [Reference Range]: 1 Height 160 cm (05/04/20 8:58 AM) Weight 97.7 kg (05/04/20 8:58 AM) Pulse Rate [55-90 bpm] 97 bpm *H* (05/04/20 8:58 AM) Body Mass Index [18.5-24.99] 38.16 *>HHI* (05/04/20 8:58 AM) Blood Pressure [90-138/55-84 mm Hg] 135/92 mm Hg (05/04/20 8:58 AM) Respiratory Rate [16-30 br/min] 20 br/min (05/04/20 8:58 AM) Temperature [96.8-100.4 DegF] 97.9 DegF (05/04/20 8:58 AM) Blood pressure sites Arm, left (05/04/20 8:58 AM) Temperature Route Temporal (05/04/20 8:58 AM) Weight Obtained Via Standing scale (05/04/20 8:58 AM) Social History Social History Type Response Smoking Status Former smoker, quit more jorge l n 30 days ago entered on: 07/08/19 Sex Medical Equipment Implanted Date:07/04/19 Target Site:Abdomen Description Quantity MRI Company Model MESH VENTRALIGHT ECHO CIR 6 - BARD ([id number]) 1 Bard Unknown KEYLA: {01}[id number] Assigning Authority: FDA
--- OUTSIDE RECORDS SUMMARY | 2022-03-11 02:06 | XMS_ITS | Continuity of Care Document ---
:1980 Author Organization [facility] Address [address] [place] [address]- Care Team Providers Name Role Phone Paulina CARSON, Thu Primary Care Physician [place] [facility] [place] 12/06/19 [facility] [address] [place] [address]- [facility] Allergies, Adverse Reactions, Alerts Substance Reaction Severity [...] tetanus/diphtheria/pertussis, acel(Tdap) 03/19/12 Given 1Result Comment: FLU [facility] [id number] Medications 0.2 % nifedipine hydrophylic ointment 0.2 [...] 02/06/18 16:34:28 EDT, Route to Pharmacy Electronically, [id number], [facility]/pharmacy #[id number] Start Date: 02/06/18 Stop Date: 04/07/18 [...] Refills, Soft Stop, 08/20/19 13:35:00 EDT, Tablet, [facility] 3,160, cm, 08/20/19 10:25:00 EDT, Height, 98.5, kg,... Start Date: 08/20/19 Stop Date: 02/16/20 Status: Orderedmetoprolol 25 mg oral tablet, extended release 25 mg, 1, tablet, By Mouth, Daily, # 30 tablet, Refills 2, Tot. Refills 2, Maintenance, 08/20/19 13:34:00 EDT, Route to Pharmacy Electronically, [facility], 160, cm, 08/20/19 10:25:00 EDT, Height, 98.5, kg, 07/03/19 21:15:00 EDT, Dry Weight Start Date: 08/20/19 Stop Date: 11/18/19 Status: OrderedNuLYTELY with Flavor Packs oral powder for reconstitution See Instructions, 240 mL By Mouth Every 15 minutes, # 4,000 mL, 0 Refills, Maintenance, 11/01/19 11:26:00 EDT, [facility]/pharmacy #[id number], 240 mL By Mouth Every 15 minutes, 160, cm, 11/01/19 10:13:00 EDT, Height, 98.5, kg, 07/03/19 21:15:00 EDT, Dry Weight Start Date: 11/01/19 Status: Orderedomeprazole 20 mg oral enteric coated capsule 1 capsule = 20 mg, By Mouth, 2 times a day, # 60 capsule, 2 Refills, Maintenance, 10/28/19 14:45:00 EDT, [facility]/pharmacy #[id number], 160, cm, 08/20/19 10:25:00 EDT, Height, 98.5, kg, 07/03/19 21:15:00 EDT, DryWeight Start Date: 10/28/19 Stop Date: 01/26/20 Status: Orderedondansetron 4 mg oral disintegrating strip 1 each = 4 mg, By Mouth, 3 times a day, PRN Nausea & Vomiting, subligual, # 21 capsule, 0 Refills, Maintenance, 10/28/19 14:46:00 EDT, [facility]/pharmacy #[id number], 160, cm, 08/20/19 10:25:00 EDT, Height, [...] 5 Refills, Maintenance, 11/22/19 11:33:00 EDT, Tablet, [facility], 160, cm, 11/01/19 10:13:00 [...] MESH VENTRALIGHT ECHO CIR 6 - BARD ([id number]) 1 Bard Unknown KEYLA: {01}[id number] Assigning Authority: FDA
--- OUTSIDE RECORDS SUMMARY | 2022-03-11 02:06 | XMS_ITS | Continuity of Care Document ---
:1980 Author Organization [facility] Address [address] [place] [address]- Care Team Providers Name Role Phone Paulina CARSON, Thu Primary Care Physician Encounter [facility] [place] Date(s): 04/26/19 - 05/03/[address] [address]- [facility] Attending Physician: Rand Pal MD Allergies, Adverse Reactions, Alerts Substance Reaction Severity [...] 02/06/18 16:34:28 EDT, Route to Pharmacy Electronically, [id number], [facility]/pharmacy #[id number] Start Date: 02/06/18 Stop Date: [...] Acute 05/10/19 10:11:00 EST, 04/26/19 10:11:00 EST, [place], [facility]/pharmacy #[id number], 1 sprays Nares, Both 2 times [...] Acute 05/10/19 10:12:00EST, 04/26/19 10:12:00 EST, Tablet, [facility]/pharmacy #1, 1 tablet By Mouth Daily in PM,x14 days, 160,cm, 04/26/19 9:37:00 EST, Height, 98, kg, ... Start Date: 04/26/19 Stop Date: 05/10/19 Status: Orderedmetoprolol 25 mg oral tablet, extended release 25 mg, 1, tablet, By Mouth, Daily, # 30 tablet, Refills 2, Tot. Refills 2, Maintenance, 05/30/19 9:24:00 EST, Route to Pharmacy Electronically, [facility]/pharmacy #207, 160, cm, 04/26/19 9:37:00 EST, Height, 98, kg, 04/11/18 16:26:00 EST, Dry Weight Start Date: 05/30/19 Stop Date: 08/28/19 Status: Orderedmetoprolol 25 mg oral tablet, extended release 25 mg, 1, tablet, By Mouth, Daily, for 30 days, # 30 tablet, Refills 2, Tot. Refills 2, Hard Stop 05/30/19 9:24:08 EST, 03/01/19 9:24:08 EST, Route to Pharmacy Electronically, [facility]/pharmacy #207 Start Date: 03/01/19 Stop Date: 05/30/19 [...] capsule, 2 Refills, Maintenance, 04/26/19 12:17:00 EST, [facility]/pharmacy #2070, 160, cm, 04/26/19 9:37:00 EST, Height, [...]
--- OUTSIDE RECORDS SUMMARY | 2022-03-11 02:06 | XMS_ITS | Continuity of Care Document ---
:1980 Author Organization [facility] Address [address] [place] [address]- Care Team Providers Name Role Phone Paulina CARSON, Thu Primary Care Physician [place] [facility] [place]s): 11/20/21 - 11/27/21 [facility] [address] [place], [place] [address] Attending Physician: Babita Burgess MD Referring Physician: Thu Gallardo NP Allergies, Adverse Reactions, [...] 23-valent vaccine 03/06/16 Given 1Result Comment: FLU [facility] [id number] Medications albuterol 0.083% inhalation solution 3 mL [...] 10/29/2113:13:00 EDT, Aerosol, Route to Pharmacy Electronically, [id number], [facility]/pharmacy #0693, 161, cm, 10/29/20 12:39:00 EDT, Hei... [...] a day, # 12 each, 5 Refills, [facility], 161, cm, 10/14/21 8:43:00EDT, Height, 99.8, kg, [...] 0 Refills, Maintenance, 05/10/21 13:30:00 EST, Suppository, [facility]/pharmacy #0693, Partial fill upon patient request if [...] Refills, Soft Stop, 03/10/20 9:11:00 EST, Tablet, [facility], 160, cm, 03/10/20 8:33:00 EST, Height, 99.9, kg, 1... Start Date: 03/10/20 Stop Date: 09/06/20 Status: Orderedlidocaine 5% topical film 1 patch, Topically, Daily, remove patches after 12 hours, # 30 patch, 0 Refills, Maintenance, 10/23/20 23:42:00 EDT, [facility]/pharmacy #[id number], Partial fill upon patient request if the prescription is for a schedule II opioid drug., 1 patch Topically Daily,x... Start Date: 10/23/20 Stop Date: 11/22/20 Status: OrderedmetFORMIN 500 mg oral tablet 1 tablet, By Mouth, 2 times a day, # 60 tablet, 5 Refills, [facility], 161, cm, 10/29/20 12:39:00 EDT, Height, 99.8, kg, 10/23/20 22:45:00 EDT, Dry Weight Start Date: 05/07/21 Status: OrderedMetoprolol Succinate ER 25 mg oral tablet, extended release 1 tablet, By Mouth, Daily, # 30 tablet, 2 Refills, [facility], 161, cm, 10/29/20 12:39:00 EDT, Height, 99.8, kg, 10/23/20 22:45:00 EDT, Dry Weight Start Date: 04/30/21 Status: Orderednaproxen 500 mg oral tablet 1 tablet = 500 mg, By Mouth, 2 times a day, # 60 tablet, 0 Refills, Maintenance, 10/14/21 8:27:00 EDT, Tablet, [facility]/pharmacy #[id number], Partial fill upon patient request if the prescription is for a schedule II opioid drug., 161, cm, 10/14/21 8:07:00 EDT,... Start Date: 10/14/21 Stop Date: 11/13/21 Status: Orderedomeprazole 20 mg oral enteric coated capsule 1 capsule, By Mouth, 2 times a day, # 60 capsule, 2 Refills, Maintenance, 11/17/21 6:15:00 EDT, [facility]/pharmacy #[id number], 161, cm, 10/14/21 8:43:00 EDT, Height, 99.8, kg, 10/23/20 22:45:00 EDT, Dry Weight Start Date: 11/17/21 Status: Orderedondansetron 4 mg oral tablet, disintegrating 1 tablet = 4 mg, By Mouth, 3 times a day, # 21 tablet, 1 Refills, Maintenance, 03/20/20 13:04:00 EST, [facility], Partial fill upon patient request [...] 0 Refills, Maintenance, 10/14/21 8:38:00 EDT, Tablet, [id number], Partial fill upon patient request if [...] problem - with severe Active depression/anxiety(Confirmed) Smoker. [email or web address] has worked in the past Active x 2 but the most recent trial failed and gave patient nightmares, etc.(Confirmed) Adnexal mass - right side 7.6 cm, Active suspected endometrioma(Confirmed) Urinary incontinence(Confirmed) Active Vitamin D Deficiency(Confirmed) Active 1Mild, not on CPAP Vital Signs Most recent to oldest [Reference Range]: 1 Height 161 cm (11/20/21 1:47 PM) Oxygen Saturation [94-100 %] 100 % (11/20/21 1:47 PM) Pulse Rate [55-90 bpm] 82 bpm (11/20/21 1:47 PM) Blood Pressure [90-138/55-84 mm Hg] 146/82 mm Hg *H* (11/20/21 1:47 PM) Respiratory Rate [16-30 br/min] 18 br/min (11/20/21 1:47 PM) Temperature [96.8-100.4 DegF] 97.6 DegF (11/20/21 1:47 PM) Mode of Delivery (Oxygen) Room air (11/20/21 1:47 PM) Blood pressure sites Arm, right (11/20/21 1:47 PM) Temperature Route Temporal (11/20/21 1:47 PM) Social History Social History Type Response Tobacco Use: 4 or less cigarettes(le ss than 1/4 pack)/day in last 30 days. Sex Medical Equipment Implanted Date:07/04/19 Target Site:Abdomen Description Quantity MRI Company Model MESH VENTRALIGHT ECHO CIR 6 - BARD ([id number]) 1 Bard Unknown KEYLA: {[id number] Assigning Authority: FDA
--- OUTSIDE RECORDS SUMMARY | 2022-03-11 02:06 | XMS_ITS | Continuity of Care Document ---
:1980 Author Organization [address] [place] [address]- Care Team Providers Name Role Phone Thu Gallardo NP Primary Care Physician [id number] Date(s): 07/08/19 - 07/15/[address] [place] [address]- [facility] Attending Physician: Poncho Nascimento MD Referring Physician: Thu Gallardo NP Allergies, [...] tetanus/diphtheria/pertussis, acel(Tdap) 03/19/12 Given 1Result Comment: FLU [facility] 17880-549-34 Medications 0.2 % nifedipine hydrophylic ointment 0.2 [...] 17:15:24 EST, Solution Start Date: 04/11/18 Status: OrderedclonazePAM 0.5 mg oral tablet 1 tablet = 0.5 mg, By Mouth, Daily at bedtime, PRN Insomnia, 0 Refills, Maintenance, 02/23/17 10:23:32 Start Date: 02/23/17 Status: OrderedColace sodium 100 mg oral capsule 100 mg, 1, capsule, By Mouth, 2 times a day, PRN, # 60 capsule, Refills 1, Tot. Refills 1, Maintenance, for constipation, 02/06/18 16:34:28 EDT, Route to Pharmacy Electronically, [id number], [facility]/pharmacy #[id number] Start Date: 02/06/18 Stop Date: 04/07/18 [...] Maintenance, 01/20/15 9:03:36 Start Date: 01/20/15 Status: Orderedibuprofen 600 mg oral tablet 600 mg, 1, tablet, By Mouth, Every 6 hours, # 40 tablet, Refills 0, Tot. Refills 0, Maintenance, 02/27/17 14:32:38, Print Requisition Start Date: 02/27/17 Status: Orderedibuprofen 800 mg oral tablet 800 mg, 1, tablet, By Mouth, 3 times a day, # 90 tablet, Refills 0, Tot. Refills 0, Acute 10/06/19 16:27:00 EDT, 07/08/19 16:26:00 EDT, [id number] 160, cm, 07/08/19 16:08:00 EDT, Height, 98.5, kg, 07/03/19 21... Start Date: 07/08/19 Stop Date: 10/06/19 Status: OrderedImitrex 100 mg oral tablet 1 [...] 05/30/19 9:24:00 EST, Route to Pharmacy Electronically, [facility]/pharmacy #[id number], 160, cm, 04/26/19 9:37:00 EST, Height, 98, kg, 04/11/18 16:26:00 EST, Dry Weight Start Date: 05/30/19 Stop Date: 08/28/19 Status: OrderedNexIUM 24HR 20 mg oral delayed release capsule 2 capsule = 40 mg, By Mouth, Daily, NO SUBSTITUTIONS, # 60 capsule, 5 Refills, Maintenance, 02/07/1816:34:35 EDT Start Date: 02/06/18 Stop Date: 08/05/18 Status: Orderedomeprazole 20 mg oral enteric coated capsule 1 capsule = 20 mg, By Mouth, 2 times a day, # 60 capsule, 2 Refills, Maintenance, 04/26/19 12:17:00 EST, [facility]/pharmacy #[id number], 160, cm, 04/26/19 9:37:00 EST, Height, 98, kg, 04/11/18 16:26:00 EST, Dry Weight Start Date: 04/26/19 Stop Date: 07/25/19 Status: OrderedQUEtiapine 25 mg oral tablet 25 [...] Daily, # 30 tablet, 5 Refills, Maintenance, 05/06/19 16:14:00 EST, Tablet, [facility]/pharmacy #[id number], 160, cm, 04/26/19 9:37:00 EST, Height, 98, kg, 04/11/18 16:26:00 EST, Dry Weight Start Date: 05/06/19 Status: Ordered Problem List Condition Effective Dates [...] Memory loss(Confirmed) Active Menopausal symptoms(Confirmed) Active Migraine(Confirmed) 1998 Active Obesity(Confirmed) Active IGNACIO (obstructive sleep Active apnea)(Confirmed)1 Poor historian(Confirmed) Active PTSD (post-traumatic stress Active disorder)(Confirmed) Pulmonary embolus, right(Confirmed) Active Restless leg syndrome(Confirmed) Active Social problem - with severe Active depression/anxiety(Confirmed) Smoker. [employer] has worked in the past Active x 2 but the most recent trial failed and gave patient nightmares, etc.(Confirmed) Adnexal mass - right side 7.6 cm, Active suspected endometrioma(Confirmed) Urinary incontinence(Confirmed) Active Vitamin D Deficiency(Confirmed) Active 1Mild, not on CPAP Vital Signs Most recent to oldest [Reference Range]: 1 Height 160 cm (07/08/19 4:08 PM) Pulse Rate [55-90 bpm] 93 bpm *H* (07/08/19 4:08 PM) Blood Pressure [90-138/55-84 mm Hg] 141/81 mm Hg *H* (07/08/19 4:08 PM) Temperature [96.8-100.4 DegF] 98.4 DegF (07/08/19 4:08 PM) Blood pressure sites Arm, left (07/08/19 4:08 PM) Temperature Route Temporal (07/08/19 4:08 PM) Social History Social History Type Response Smoking Status Former smoker, quit more jorge l n 30 days ago entered on: 07/08/19 Sex Medical Equipment Implanted Date:07/04/19 Target Site:Abdomen Description Quantity MRI Company Model MESH VENTRALIGHT ECHO CIR 6 - BARD ([id number]) 1 Bard Unknown KEYLA: {[id number] Assigning Authority: FDA
--- OUTSIDE RECORDS SUMMARY | 2022-03-11 02:06 | XMS_ITS | Continuity of Care Document ---
:1980 Author Organization [address] [place] [address]- Care Team Providers Name Role Phone Paulina CARSON, Thu Primary Care Physician [place] [facility] [place] 08/[place]/[address] [place] [address]- [facility] Attending Physician: Olga Horton Admitting Physician: AdmtrOlga Referring Physician: AdmtrOlga Allergies, Adverse Reactions, Alerts Substance Reaction Severity [...] tetanus/diphtheria/pertussis, acel(Tdap) 03/19/12 Given 1Result Comment: FLU [facility] [id number] Medications 0.2 % nifedipine hydrophylic ointment 0.2 [...] 02/06/18 16:34:28 EDT, Route to Pharmacy Electronically, [id number], [facility]/pharmacy #[id number] Start Date: 02/06/18 [...] 07/08/19 16:26:00 EDT, [id number] 160, cm, 07/08/19 16:08:00 EDT, [...] 05/30/19 9:24:00 EST, [facility]ically, [id number] 160, cm, 04/26/19 9:37:00 EST, Height, [...] day, # 60 capsule, 2 Refills, Maintenance, 07/29/19 15:09:00 EDT, [facility], 160, cm, 07/08/19 16:08:00 EDT, Height, 98.5, kg, 07/03/19 21:15:00 EDT, Dry Weight Start Date: 07/29/19 Stop Date: 10/27/19 Status: OrderedQUEtiapine 25 mg oral tablet 25 [...] 5 Refills, Maintenance, 05/06/19 16:14:00 EST, Tablet, [facility]/pharmacy #[id number], 160, cm, 04/26/19 9:37:00 EST, Height, [...] MESH VENTRALIGHT ECHO CIR 6 - BARD ([id number]) 1 Bard Unknown KEYLA: {[id number] Assigning Authority: FDA
--- OUTSIDE RECORDS SUMMARY | 2022-03-11 02:06 | XMS_ITS | Continuity of Care Document ---
:1980 Author Organization [facility] Address [address] [place] [address]- Care Team Providers Name Role Phone Paulina CARSON, Thu Primary Care Physician [place] [facility] [place] Date(s): 03/10/20 - 04/09/20 [facility] [address] [place] [address]- Allergies, Adverse Reactions, Alerts Substance Reaction Severity [...] tetanus/diphtheria/pertussis, acel(Tdap) 03/19/12 Given 1Result Comment: FLU [facility] [id number] Medications 0.2 % nifedipine hydrophylic ointment 0.2 [...] 02/06/18 16:34:28 EDT, Route to Pharmacy Electronically, [id number], [facility]/pharmacy #[id number] Start Date: 02/06/18 Stop Date: [...] Refills, Soft Stop, 03/10/20 9:11:00 EST, Tablet, [facility], 160, cm, 03/10/20 8:33:00 EST, Height, 99.9, kg, 1... Start Date: 03/10/20 Stop Date: 09/06/20 Status: Orderedmetoprolol 25 mg oral tablet, extended release 25 mg, 1, tablet, By Mouth, Daily, # 30 tablet, Refills 2, Tot. Refills 2, Maintenance, 03/10/20 9:11:00 EST, Route to Pharmacy Electronically, [facility], 160, cm, 03/10/20 8:33:00 EST, Height, 99.9, kg, 01/11/20 15:23:00 EDT, Dry Weight Start Date: 03/10/20 Stop Date: 06/08/20 Status: OrderedNuLYTELY with Flavor Packs oral powder for reconstitution See Instructions, 240 mL By Mouth Every 15 minutes, # 4,000 mL, 0 Refills, Maintenance, 11/01/19 11:26:00 EDT, [facility]/pharmacy #[id number], 240 mL By Mouth Every 15 minutes, 160, cm, 11/01/19 10:13:00 EDT, Height, 98.5, kg, 07/03/19 21:15:00 EDT, Dry Weight Start Date: 11/01/19 Status: Orderedomeprazole 20 mg oral enteric coated capsule 1 capsule = 20 mg, By Mouth, 2 times a day, # 60 capsule, 2 Refills, Maintenance, 03/10/20 9:11:00 EST, [facility], 160, cm, 03/10/20 8:33:00 EST, Height, 99.9, kg, 01/11/20 15:23:00 EDT,Dry Weight Start Date: 03/10/20 Stop Date: 06/08/20 Status: Orderedondansetron 4 mg oral tablet, disintegrating 1 tablet = 4 mg, By Mouth, 3 times a day, # 21 tablet, 1 Refills, Maintenance, 03/20/20 13:04:00 EST, [facility], Partial fill upon patient [...] 5 Refills, Maintenance, 11/22/19 11:33:00 EDT, Tablet, [facility], 160, cm, 11/01/19 10:13:00 [...] MESH VENTRALIGHT ECHO CIR 6 - BARD ([id number]) 1 Bard Unknown KEYLA: {01}[id number] Assigning Authority: FDA
--- OUTSIDE RECORDS SUMMARY | 2022-03-11 02:06 | XMS_ITS | Continuity of Care Document ---
:1980 Author Organization [address] [place] [address]- Care Team Providers Name Role Phone Paulina CARSON, Thu Primary Care Physician Encounter [facility] Date(s): 05/27/19 - 06/03/[address] [place] [address]- [facility] Attending Physician: Poncho Nascimento MD Referring Physician: Aileen Robin NP Allergies, [...] tetanus/diphtheria/pertussis, acel(Tdap) 03/19/12 Given 1Result Comment: FLU [facility] 53820-553-49 Medications 0.2 % nifedipine hydrophylic ointment 0.2 [...] 02/06/18 16:34:28 EDT, Route to Pharmacy Electronically, [id number], [facility]/pharmacy #[id number] Start Date: 02/06/18 Stop Date: [...] Start Date: 03/01/19 Stop Date: 08/28/19 Status: Orderedipratropium nasal 21 mcg/inh spray 2 sprays, Nares, Both, 3 times a day, for 14 days, in each nostril, # 30 mL, 0 Refills, Acute 06/06/19 9:39:00 EST, 05/23/19 9:39:00 EST, [place], [facility]/pharmacy #[id number], 2 sprays Nares, Both 3 times a day,x14 days,Instr:in each nostril, 160, cm, 05/23/19 9... Start Date: 05/23/19 Stop Date: 06/06/19 Status: Orderedmetoprolol 25 mg oral tablet, extended release 25 mg, 1, tablet, By Mouth, Daily, # 30 tablet, Refills 2, Tot. Refills 2, Maintenance, 05/30/19 9:24:00 EST, Route to Pharmacy Electronically, [facility]/pharmacy #[id number], 160, cm, 04/26/19 9:37:00 EST, [...] capsule, 2 Refills, Maintenance, 04/26/19 12:17:00 EST, [id number], 160, cm, 04/26/19 9:37:00 EST, Height, [...] 5 Refills, Maintenance, 05/06/19 16:14:00 EST, Tablet, [id number], 160, cm, 04/26/19 9:37:00 EST, Height, [...] problem - with severe Active depression/anxiety(Confirmed) Smoker. [employer]ucell has worked in the past Active x 2 but the most recent trial failed and gave patient nightmares, etc.(Confirmed) Adnexal mass - right side 7.6 cm, Active suspected endometrioma(Confirmed) Urinary incontinence(Confirmed) Active Vitamin D Deficiency(Confirmed) Active 1Mild, not on CPAP Vital Signs Most recent to oldest [Reference Range]: 1 Height 160 cm (05/27/19 8:50 AM) Weight 100.4 kg (05/27/19 8:50 AM) Pulse Rate [55-90 bpm] 91 bpm *H* (05/27/19 8:50 AM) Body Mass Index [18.5-24.99] 39.22 *>HHI* (05/27/19 8:50 AM) Blood Pressure [90-138/55-84 mm Hg] 137/57 mm Hg (05/27/19 8:50 AM) Respiratory Rate [16-30 br/min] 17 br/min (05/27/19 8:50 AM) Temperature [96.8-100.4 DegF] 97.9 DegF (05/27/19 8:50 AM) Temperature Route Temporal (05/27/19 8:50 AM) Social History Social History Type Response Smoking Status Current every day smoker; To bacco user in household: Yes entered on: 06/24/16 Sex
--- OUTSIDE RECORDS SUMMARY | 2022-03-11 02:06 | XMS_ITS | Continuity of Care Document ---
:1980 Author Organization [facility] Address [address] [place] [address]- Care Team Providers Name Role Phone Paulina CARSON, Thu Primary Care Physician Encounter [facility] Date(s): 11/03/20 - 12/03/20 [facility] [address] [place] [id number] Allergies, Adverse Reactions, Alerts Substance Reaction Severity Status codeine Atypical migraine Active erythromycin N&V - Nausea and vomiting Active azithromycin Nausea and vomiting Active Vicodin Hives/Rash Active Reglan agitation (has ripped her IVs out) Active increased anxiety Percocet Hives/Rash Active Immunizations Given and Recorded Vaccine Date Status Refusal Reason SARS-CoV-2 (COVID-19) Ad26 vaccine 08/14/20 Recorded influenza virus vaccine, inactivated1 05/23/19 Given influenza virus vaccine, inactivated 01/27/16 Given influenza virus vaccine, inactivated 05/05/15 Given influenza virus vaccine, inactivated 04/23/13 Given pneumococcal 23-valent vaccine 03/06/16 Given tetanus/diphtheria/pertussis, acel(Tdap) 03/19/12 Given 1Result Comment: FLU [facility] 26091-627-47 Medications albuterol 0.083% inhalation solution 3 mL [...] 10/29/2113:13:00 EDT, Aerosol, Route to Pharmacy Electronically, [id number], [facility]/pharmacy #[id number], 161, cm, 10/29/20 12:39:00 EDT, Hei... [...] puffs, Inhalation, 2 times a day, # 1 each, 5 Refills, Maintenance, 10/29/20 14:13:00 EDT, Aerosol, [facility]/pharmacy #0693, Partial fill upon patient request if the prescription is for a schedule II opioid drug., 161, cm, 10/29/20 12:39:00 EDT, Height,... Start Date: 10/29/20 Stop Date: 04/27/21 Status: OrderedFreestyle Lite Lancets See Instructions, # [...] EST, Dry Weight Start Date: 07/21/20 Status: OrderedImitrex 100 mg oral tablet 1 tablet = 100 mg, By Mouth, Daily, PRN as needed for migraine headache, may repeat dose in 2 hours if needed, # 9 tablet, 5 Refills, Soft Stop, 03/10/20 9:11:00 EST, Tablet, [facility] 3, 160, cm, 03/10/20 8:33:00 EST, Height, 99.9, kg, 1... Start Date: 03/10/20 Stop Date: 09/06/20 Status: Orderedlidocaine 5% topical film 1 patch, Topically, Daily, remove patches after 12 hours, # 30 patch, 0 Refills, Maintenance, 10/23/20 23:42:00 EDT, [facility]/pharmacy #[id number], Partial fill upon patient request if the prescription is for a schedule II opioid drug., 1 patch Topically Daily,x... Start Date: 10/23/20 Stop Date: 11/22/20 Status: OrderedmetFORMIN 500 mg oral tablet 1 tablet = 500 mg, By Mouth, 2 times a day, # 60 tablet, 5 Refills, Maintenance, 08/17/20 9:43:00 EDT, Tablet, [facility]/pharmacy #2071, Partial fill upon patient request if the prescription is for a schedule II opioid drug., 160, cm, 06/04/20 0:50:00 EST,... Start Date: 08/17/20 Stop Date: 02/13/21 Status: Orderedmetoprolol 25 mg oral tablet, extended release 25 mg, 1, tablet, By Mouth, Daily, # 30 tablet, Refills 2, Tot. Refills 2, Maintenance, 10/29/20 14:10:00 EDT, Route to Pharmacy Electronically, [facility]/pharmacy #[id number], 161, cm, 10/29/20 12:39:00 EDT, Height, 99.8, kg, 10/23/20 22:45:00 EDT, Dry Weight Start Date: 10/29/20 Stop Date: 01/27/21 Status: Orderedomeprazole 20 mg oral enteric coated capsule 1 capsule, By Mouth, 2 times a day, # 60 capsule, 2 Refills, Maintenance, 08/24/20 9:33:00 EDT, [id number], 160, cm, 06/04/20 0:50:00 EST, Height, 100, kg, 06/04/20 0:50:00 EST, Dry Weight Start Date: 08/24/20 Status: Orderedondansetron 4 mg oral tablet, disintegrating 1 tablet = 4 mg, By Mouth, 3 times a day, # 21 tablet, 1 Refills, Maintenance, 03/20/20 13:04:00 EST, [facility], Partial fill upon patient request [...] Maintenance, 10/13/16 9:26:52 Start Date: 10/13/16 Status: Ordered Problem List Condition Effective Dates [...] MESH VENTRALIGHT ECHO CIR 6 - BARD ([id number]) 1 Bard Unknown KEYLA: {[id number] Assigning Authority: FDA
--- OUTSIDE RECORDS SUMMARY | 2022-03-11 02:06 | XMS_ITS | Continuity of Care Document ---
:1980 Author Organization [facility] Adult Address [address] [place] [address]- Care Team Providers Name Role Phone Paulina CARSON, Thu Primary Care Physician Encounter [facility] Date(s): 07/21/20 - 08/20/20 [facility] [address] [place] [address]- Allergies, Adverse Reactions, Alerts Substance Reaction Severity [...] tetanus/diphtheria/pertussis, acel(Tdap) 03/19/12 Given 1Result Comment: FLU [facility] 71870-226-47 Medications albuterol 0.083% inhalation solution 3 mL [...] Maintenance, 01/20/15 9:03:36 Start Date: 01/20/15 Status: OrderedFreestyle Lite Lancets See Instructions, # [...] Refills, Soft Stop, 03/10/20 9:11:00 EST, Tablet, [facility], 160, cm, 03/10/20 8:33:00 EST, Height, 99.9, kg, 1... Start Date: 03/10/20 Stop Date: 09/06/20 Status: OrderedmetFORMIN 500 mg oral tablet 1 tablet = 500 mg, By Mouth, 2 times a day, # 60 tablet, 5 Refills, Maintenance, 08/17/20 9:43:00 EDT, Tablet, [facility]/pharmacy #[id number], Partial fill upon patient request if the prescription is for a schedule II opioid drug., 160, cm, 06/04/20 0:50:00 EST,... Start Date: 08/17/20 Stop Date: 02/13/21 Status: Orderedmetoprolol 25 mg oral tablet, extended release 25 mg, 1, tablet, By Mouth, Daily, # 30 tablet, Refills 2, Tot. Refills 2, Maintenance, 03/10/20 9:11:00 EST, Route to Pharmacy Electronically, [facility] 3, 160, cm, 03/10/20 8:33:00 EST, Height, 99.9, kg, 01/11/20 15:23:00 EDT, Dry Weight Start Date: 03/10/20 Stop Date: 06/08/20 Status: Orderedomeprazole 20 mg oral enteric coated capsule 1 capsule = 20 mg, By Mouth, 2 times a day, # 60 capsule, 2 Refills, Maintenance, 03/10/20 9:11:00 EST, [facility] 3, 160, cm, 03/10/20 8:33:00 EST, Height, 99.9, kg, 01/11/20 15:23:00 EDT,Dry Weight Start Date: 03/10/20 Stop Date: 06/08/20 Status: Orderedondansetron 4 mg oral tablet, disintegrating 1 tablet = 4 mg, By Mouth, 3 times a day, # 21 tablet, 1 Refills, Maintenance, 03/20/20 13:04:00 EST, [facility] 3, Partial fill upon patient request if [...] MESH VENTRALIGHT ECHO CIR 6 - BARD ([id number]) 1 Bard Unknown KEYLA: {[id number] Assigning Authority: FDA
--- OUTSIDE RECORDS SUMMARY | 2022-03-11 02:07 | XMS_ITS | Continuity of Care Document ---
:1980 Author Organization [facility] Adult Address [address] [place] [address]- Care Team Providers Name Role Phone Thu Gallardo NP Primary Care Physician Encounter [facility] Date(s): 08/20/19 - 08/27/19 [facility] Adult [address] [place] [address]- [facility] Encounter Diagnosis Acid reflux (Discharge Diagnosis) - 08/20/19 Hypertension (Discharge Diagnosis) - 08/20/19 Attending Physician: Thu Gallardo NP Allergies, Adverse [...] tetanus/diphtheria/pertussis, acel(Tdap) 03/19/12 Given 1Result Comment: FLU [facility] 69262-950-17 Medications 0.2 % nifedipine hydrophylic ointment 0.2 [...] 02/06/18 16:34:28 EDT, Route to Pharmacy Electronically, [id number], [facility]/pharmacy #[id number] Start Date: 02/06/18 Stop Date: [...] 01/20/15 9:03:36 Start Date: 01/20/15 Status: Orderedibuprofen 800 mg oral tablet 800 mg, 1, tablet, By Mouth, 3 times a day, # 90 tablet, Refills 0, Tot. Refills 0, Acute 10/06/19 16:27:00 EDT, 07/08/19 16:26:00 EDT, Route to Pharmacy Electronically, [facility]/pharmacy #[id number], 160, cm, 07/08/19 16:08:00 EDT, Height, 98.5, kg, 07/03/19 21... Start Date: 07/08/19 Stop Date: 10/06/19 Status: OrderedImitrex 100 mg oral tablet 1 tablet = 100 mg, By Mouth, Daily, PRN as needed for migraine headache, may repeat dose in 2 hours if needed, # 9 tablet, 5 Refills, Soft Stop, 08/20/19 13:35:00 EDT, Tablet, [facility],160, cm, 08/20/19 10:25:00 EDT, Height, 98.5, kg,... Start Date: 08/20/19 Stop Date: 02/16/20 Status: Orderedmetoprolol 25 mg oral tablet, extended release 25 mg, 1, tablet, By Mouth, Daily, # 30 tablet, Refills 2, Tot. Refills 2, Maintenance, 08/20/19 13:34:00 EDT, Route to Pharmacy Electronically, [facility], 160, cm, 08/20/19 10:25:00 EDT, Height, 98.5, kg, 07/03/19 21:15:00 EDT, Dry Weight Start Date: 08/20/19 Stop Date: 11/18/19 Status: Orderedomeprazole 20 mg oral enteric coated capsule 1 capsule = 20 mg, By Mouth, 2 times a day, # 60 capsule, 2 Refills, Maintenance, 08/20/19 13:34:00 EDT, [facility], 160, cm, 08/20/19 10:25:00 EDT, Height, 98.5, kg, 07/03/19 21:15:00 EDT, Dry Weight Start Date: 08/20/19 Stop Date: 11/18/19 Status: OrderedQUEtiapine 25 mg oral tablet 25 [...] Dates Health Status Clinical In formant Service Acid reflux Discharge 08/20/19 Diagnosis Hypertension Discharge 08/20/19 Diagnosis Vital Signs Most recent to oldest [Reference Range]: 1 Height 160 cm (08/20/19 10:25 AM) Social History Social History Type Response Smoking Status Former smoker, quit more jorge l n 30 days ago entered on: 07/08/19 Sex Medical Equipment Implanted Date:07/04/19 Target Site:Abdomen Description Quantity MRI Company Model MESH VENTRALIGHT ECHO CIR 6 - BARD ([id number]) 1 Bard Unknown KEYLA: {[id number] Assigning Authority: FDA
--- OUTSIDE RECORDS SUMMARY | 2022-03-11 02:07 | XMS_ITS | Continuity of Care Document ---
:1980 Author Organization [facility] Adult Address [address] [place] [address]- Care Team Providers Name Role Phone Thu Gallardo NP Primary Care Physician Encounter [facility] Date(s): 07/24/20 - 07/31/20 [facility] Adult [address] [place] [address]- Encounter Diagnosis Diabetes (Discharge Diagnosis) - 07/24/20 Attending Physician: Thu Gallardo NP Allergies, Adverse [...] tetanus/diphtheria/pertussis, acel(Tdap) 03/19/12 Given 1Result Comment: FLU [facility] 86301-562-78 Medications albuterol 0.083% inhalation solution 3 mL [...] Refills, Soft Stop, 03/10/20 9:11:00 EST, Tablet, [facility], 160, cm, 03/10/20 8:33:00 EST, Height, 99.9, kg, 1... Start Date: 03/10/20 Stop Date: 09/06/20 Status: Orderedmetoprolol 25 mg oral tablet, extended release 25 mg, 1, tablet, By Mouth, Daily, # 30 tablet, Refills 2, Tot. Refills 2, Maintenance, 03/10/20 9:11:00 EST, Route to Pharmacy Electronically, [facility], 160, cm, 03/10/20 8:33:00 EST, Height, 99.9, kg, 01/11/20 15:23:00 EDT, Dry Weight Start Date: 03/10/20 Stop Date: 06/08/20 Status: Orderedomeprazole 20 mg oral enteric coated capsule 1 capsule = 20 mg, By Mouth, 2 times a day, # 60 capsule, 2 Refills, Maintenance, 03/10/20 9:11:00 EST, [facility], 160, cm, 03/10/20 8:33:00 EST, Height, 99.9, kg, 01/11/20 15:23:00 EDT,Dry Weight Start Date: 03/10/20 Stop Date: 06/08/20 Status: Orderedondansetron 4 mg oral tablet, disintegrating 1 tablet = 4 mg, By Mouth, 3 times a day, # 21 tablet, 1 Refills, Maintenance, 03/20/20 13:04:00 EST, [facility], Partial fill upon patient request if [...] Diagnosis Type Effective Dates Health Status Clinical Serv ice Informant Diabetes Discharge 07/24/20 Diagnosis Social History Social History Type Response Tobacco Use: 4 or less cigarettes(le ss than 1/4 pack)/day in last 30 days. Sex Medical Equipment Implanted Date:07/04/19 Target Site:Abdomen Description Quantity MRI Company Model MESH VENTRALIGHT ECHO CIR 6 - BARD ([id number]) 1 Bard Unknown KEYLA: {[id number] Assigning Authority: FDA
--- OUTSIDE RECORDS SUMMARY | 2022-03-11 02:07 | XMS_ITS | Continuity of Care Document ---
:1980 Author Organization [facility] Adult Address [address] [place] [address]- Care Team Providers Name Role Phone Pualina CARSON, Thu Primary Care Physician Encounter [facility] Date(s): 08/20/20 - 09/19/20 [facility] Adult [address] [place] [address]- Attending Physician: Admtr, Ar8 Allergies, Adverse Reactions, [...] Comment: FLU [facility] [id number] Medications albuterol 0.083% inhalation solution 3 mL [...] Refills, Soft Stop, 03/10/20 9:11:00 EST, Tablet, [facility], 160, cm, 03/10/20 8:33:00 EST, Height, 99.9, kg, 1... Start Date: 03/10/20 Stop Date: 09/06/20 Status: OrderedmetFORMIN 500 mg oral tablet 1 tablet = 500 mg, By Mouth, 2 times a day, # 60 tablet, 5 Refills, Maintenance, 08/17/20 9:43:00 EDT, Tablet, [facility]/pharmacy #[id number], Partial fill upon patient request if the prescription is for a schedule II opioid drug., 160, cm, 06/04/20 0:50:00 EST,... Start Date: 08/17/20 Stop Date: 02/13/21 Status: Orderedmetoprolol 25 mg oral tablet, extended release 25 mg, 1, tablet, By Mouth, Daily, # 30 tablet, Refills 2, Tot. Refills 2, Maintenance, 03/10/20 9:11:00 EST, Route to Pharmacy Electronically, [facility], 160, cm, 03/10/20 8:33:00 EST, Height, 99.9, kg, 01/11/20 15:23:00 EDT, Dry Weight Start Date: 03/10/20 Stop Date: 06/08/20 Status: Orderedomeprazole 20 mg oral enteric coated capsule 1 capsule, By Mouth, 2 times a day, # 60 capsule, 2 Refills, Maintenance, 08/24/20 9:33:00 EDT, [facility], 160, cm, 06/04/20 0:50:00 EST, Height, 100, kg, 06/04/20 0:50:00 EST, Dry Weight Start Date: 08/24/20 Status: Orderedondansetron 4 mg oral tablet, disintegrating 1 tablet = 4 mg, By Mouth, 3 times a day, # 21 tablet, 1 Refills, Maintenance, 03/20/20 13:04:00 EST, [facility], Partial fill upon patient request [...] MESH VENTRALIGHT ECHO CIR 6 - BARD ([id number]) 1 Bard Unknown KEYLA: {[id number] Assigning Authority: FDA
--- OUTSIDE RECORDS SUMMARY | 2022-03-11 02:07 | XMS_ITS | Continuity of Care Document ---
:1980 Author Organization [facility] Adult Address [address] [place] [address]- Care Team Providers Name Role Phone Paulina CARSON, Thu Primary Care Physician Encounter [facility] Date(s): 10/14/21 - 10/21/21 [facility] Adult [address] [place] [address]- Encounter Diagnosis Breast pain, left (Discharge Diagnosis) - 10/14/21 Contusion (Discharge Diagnosis) - 10/14/21 Nausea (Discharge Diagnosis) - 10/14/21 Attending Physician: Davida CARSON, Teresa Goncalves Allergies, Adverse Reactions, Alerts Substance Reaction Severity Status codeine Atypical migraine Active erythromycin Oxycodone Active Azithromycin allergy N&V - Nausea and vomiting azithromycin Nausea and vomiting Active acetaminophen-oxycodone Active Vicodin Hives/Rash Active Percocet 5/ Hives/Rash Active Reglan agitation (has ripped her [...] 23-valent vaccine 03/06/16 Given 1Result Comment: FLU [facility] 84830-934-65 Medications albuterol 0.083% inhalation solution 3 mL [...] 10/29/2113:13:00 EDT, Aerosol, Route to Pharmacy Electronically, [id number], [facility]/pharmacy #[id number], 161, cm, 10/29/20 12:39:00 EDT, Hei... [...] 2 times a day, # 12 each, 4 Refills, [facility], 161, cm, 10/29/20 12:39:00 EDT, Height, 99.8, kg, 10/23/20 22:45:00 EDT, Dry Weight Start Date: 06/08/21 Status: OrderedFreestyle Lite Lancets See Instructions, # [...] 0 Refills, Maintenance, 05/10/21 13:30:00 EST, Suppository, [facility]/pharmacy #[id number], Partial fill upon patient request if [...] Refills, Soft Stop, 03/10/20 9:11:00 EST, Tablet, [facility], 160, cm, 03/10/20 8:33:00 EST, Height, 99.9, kg, 1... Start Date: 03/10/20 Stop Date: 09/06/20 Status: Orderedlidocaine 5% topical film 1 patch, Topically, Daily, remove patches after 12 hours, # 30 patch, 0 Refills, Maintenance, 10/23/20 23:42:00 EDT, [facility]/pharmacy #[id number], Partial fill upon patient request if the prescription is for a schedule II opioid drug., 1 patch Topically Daily,x... Start Date: 10/23/20 Stop Date: 11/22/20 Status: OrderedmetFORMIN 500 mg oral tablet 1 tablet, By Mouth, 2 times a day, # 60 tablet, 5 Refills, [facility], 161, cm, 10/29/20 12:39:00 EDT, Height, 99.8, kg, 10/23/20 22:45:00 EDT, Dry Weight Start Date: 05/07/21 Status: OrderedMetoprolol Succinate ER 25 mg oral tablet, extended release 1 tablet, By Mouth, Daily, # 30 tablet, 2 Refills, [facility], 161, cm, 10/29/20 12:39:00 EDT, Height, 99.8, kg, 10/23/20 22:45:00 EDT, Dry Weight Start Date: 04/30/21 Status: Orderednaproxen 500 mg oral tablet 1 tablet = 500 mg, By Mouth, 2 times a day, # 60 tablet, 0 Refills, Maintenance, 10/14/21 8:27:00 EDT, Tablet, [facility]/pharmacy #[id number], Partial fill upon patient request if the prescription is for a schedule II opioid drug., 161, cm, 10/14/21 8:07:00 EDT,... Start Date: 10/14/21 Stop Date: 11/13/21 Status: Orderedomeprazole 20 mg oral enteric coated capsule 1 capsule, By Mouth, 2 times a day, # 60 capsule, 2 Refills, [facility], 161, cm, 10/29/20 12:39:00 EDT, Height, 99.8, kg, 10/23/20 22:45:00 EDT, Dry Weight Start Date: 07/08/21 Status: Orderedondansetron 4 mg oral tablet, disintegrating 1 tablet = 4 mg, By Mouth, 3 times a day, # 21 tablet, 1 Refills, Maintenance, 03/20/20 13:04:00 EST, [facility], Partial fill upon patient request if [...] 0 Refills, Maintenance, 10/14/21 8:38:00 EDT, Tablet, [facility]/pharmacy #[id number], Partial fill upon patient request if [...] Active Menopausal symptoms(Confirmed) Active Migraine(Confirmed) 1998 Active Obese class II(Confirmed) Active Obesity(Confirmed) Active IGNACIO (obstructive sleep Active apnea)(Confirmed)1 Poor historian(Confirmed) Active PTSD (post-traumatic stress Active disorder)(Confirmed) Pulmonary embolus, right(Confirmed) Active Restless leg syndrome(Confirmed) Active Social problem - with severe Active depression/anxiety(Confirmed) Smoker. [employer] [facility] has worked in the past Active x 2 but the most recent trial failed and gave patient nightmares, etc.(Confirmed) Adnexal mass - right side 7.6 cm, Active suspected endometrioma(Confirmed) Urinary incontinence(Confirmed) Active Vitamin D Deficiency(Confirmed) Active 1Mild, not on CPAP Diagnosis Diagnosis Type Effective Dates Health Status Clinical In formant Service Breast pain, Discharge 10/14/21 left Diagnosis Contusion Discharge 10/14/21 Diagnosis Nausea Discharge 10/14/21 Diagnosis Vital Signs Most recent to oldest [Reference Range]: 1 2 Height 161 cm 161 cm (10/14/21 8:43 AM) (10/14/21 8:07 AM) Weight 95.7 kg (10/14/21 8:07 AM) Oxygen Saturation [94-100 %] 98 % (10/14/21 8:07 AM) Pulse Rate [55-90 bpm] 85 bpm (10/14/21 8:07 AM) Body Mass Index [18.5-24.99] 36.92 *>HHI* (10/14/21 8:07 AM) Blood Pressure [90-138/55-84 mm Hg] 118/72 mm Hg 130/ 79 mm Hg (10/14/21 8:43 AM) (10/14/21 8:07 AM) Temperature [96.8-100.4 DegF] 98.7 DegF (10/14/21 8:07 AM) Mode of Delivery (Oxygen) Room air (10/14/21 8:07 AM) Blood pressure sites Arm, left Arm, right (10/14/21 8:43 AM) (10/14/21 8:07 AM) Temperature Route Temporal (10/14/21 8:07 AM) Weight Obtained Via Standing scale (10/14/21 8:07 AM) Social History Social History Type Response Tobacco Use: 4 or less cigarettes(le ss than 1/4 pack)/day in last 30 days. Sex Medical Equipment Implanted Date:07/04/19 Target Site:Abdomen Description Quantity MRI Company Model MESH VENTRALIGHT ECHO CIR 6 - BARD ([id number]) 1 Bard Unknown KEYLA: {[id number] Assigning Authority: FDA
--- OUTSIDE RECORDS SUMMARY | 2022-03-11 02:07 | XMS_ITS | Continuity of Care Document ---
:1980 Author Organization [facility] Address Unavailable , Care Team Providers Name Role Phone Paulina CARSON, Thu Primary Care Physician Encounter [facility] [place] Date(s): 04/20/21 - 05/28/21 [facility] Attending Physician: Lobito CARSON, Aileen Gustafson Referring Physician: Thu Gallardo NP Allergies, Adverse [...] tetanus/diphtheria/pertussis, acel(Tdap) 03/19/12 Given 1Result Comment: FLU [facility] 33007-133-91 Medications albuterol 0.083% inhalation solution 3 mL [...] 10/29/2113:13:00 EDT, Aerosol, Route to Pharmacy Electronically, [id number], [facility]/pharmacy #[id number], 161, cm, 10/29/20 12:39:00 EDT, [...] 5 Refills, Maintenance, 10/29/20 14:13:00 EDT, Aerosol, [facility]/pharmacy #0693, Partial fill upon patient request [...] 0 Refills, Maintenance, 05/10/21 13:30:00 EST, Suppository, [facility]/pharmacy #0693, Partial fill upon patient request [...] Refills, Soft Stop, 03/10/20 9:11:00 EST, Tablet, [facility], 160, cm, 03/10/20 8:33:00 EST, Height, 99.9, kg, 1... Start Date: 03/10/20 Stop Date: 09/06/20 Status: Orderedlidocaine 5% topical film 1 patch, Topically, Daily, remove patches after 12 hours, # 30 patch, 0 Refills, Maintenance, 10/23/20 23:42:00 EDT, [facility]/pharmacy #[id number], Partial fill upon patient request if the prescription is for a schedule II opioid drug., 1 patch Topically Daily,x... Start Date: 10/23/20 Stop Date: 11/22/20 Status: OrderedmetFORMIN 500 mg oral tablet 1 tablet, By Mouth, 2 times a day, # 60 tablet, 5 Refills, [facility], 161, cm, 10/29/20 12:39:00 EDT, Height, 99.8, kg, 10/23/20 22:45:00 EDT, Dry Weight Start Date: 05/07/21 Status: OrderedMetoprolol Succinate ER 25 mg oral tablet, extended release 1 tablet, By Mouth, Daily, # 30 tablet, 2 Refills, [facility], 161, cm, 10/29/20 12:39:00 EDT, Height, 99.8, kg, 10/23/20 22:45:00 EDT, Dry Weight Start Date: 04/30/21 Status: Orderedomeprazole 20 mg oral enteric coated capsule 1 capsule, By Mouth, 2 times a day, # 60 capsule, 2 Refills, [facility], 161, cm, 10/29/20 12:39:00 EDT, Height, 99.8, kg, 10/23/20 22:45:00 EDT, Dry Weight Start Date: 04/14/21 Status: Orderedondansetron 4 mg oral tablet, disintegrating 1 tablet = 4 mg, By Mouth, 3 times a day, # 21 tablet, 1 Refills, Maintenance, 03/20/20 13:04:00 EST, [facility], Partial fill upon patient request if the prescription is for a schedule II opioid drug., 160, cm, 03/10/20 8:33:00 Hei. JASON.. Start Date: 03/20/20 Status: OrderedQUEtiapine 25 mg [...] 0 Refills, Maintenance, 10/13/16 9:26:52 Start Date: 7/6/17 Status: Ordered Problem List Condition Effective Dates [...] problem - with severe Active depression/anxiety(Confirmed) Smoker. [employer] has worked in the past Active x [...] MESH VENTRALIGHT ECHO CIR 6 - BARD ([id number]) 1 Bard Unknown KEYLA: {01}[id number] Assigning Authority: FDA
--- OUTSIDE RECORDS SUMMARY | 2022-03-11 02:07 | XMS_ITS | Continuity of Care Document ---
:1980 Author Organization [facility] Address [address] [place] [address]- Care Team Providers Name Role Phone Paulina CARSON, Thu Primary Care Physician [place] [facility] Date(s): 10/29/20 - 11/05/20 [facility] [address] [place] [address]- Attending Physician: Thu Gallardo NP Allergies, Adverse [...] acel(Tdap) 03/19/12 Given 1Result Comment: FLU [facility] 36324-109-40 Medications albuterol 0.083% inhalation solution 3 mL [...] 10/29/2113:13:00 EDT, Aerosol, Route to Pharmacy Electronically, [id number], [facility]/pharmacy #[id number], 161, cm, 10/29/20 12:39:00 EDT, [...] 5 Refills, Maintenance, 10/29/20 14:13:00 EDT, Aerosol, [facility]/pharmacy #0693, Partial fill upon patient request [...] Refills, Soft Stop, 03/10/20 9:11:00 EST, Tablet, [facility], 160, cm, 03/10/20 8:33:00 EST, Height, 99.9, kg, 1... Start Date: 03/10/20 Stop Date: 09/06/20 Status: Orderedlidocaine 5% topical film 1 patch, Topically, Daily, remove patches after 12 hours, # 30 patch, 0 Refills, Maintenance, 10/23/20 23:42:00 EDT, [facility]/pharmacy #[id number], Partial fill upon patient request if the prescription is for a schedule II opioid drug., 1 patch Topically Daily,x... Start Date: 10/23/20 Stop Date: 11/22/20 Status: OrderedmetFORMIN 500 mg oral tablet 1 tablet = 500 mg, By Mouth, 2 times a day, # 60 tablet, 5 Refills, Maintenance, 08/17/20 9:43:00 EDT, Tablet, [facility]/pharmacy #[id number], Partial fill upon patient request if the prescription is for a schedule II opioid drug., 160, cm, 06/04/20 0:50:00 EST,... Start Date: 08/17/20 Stop Date: 02/13/21 Status: Orderedmetoprolol 25 mg oral tablet, extended release 25 mg, 1, tablet, By Mouth, Daily, # 30 tablet, Refills 2, Tot. Refills 2, Maintenance, 10/29/20 14:10:00 EDT, Route to Pharmacy Electronically, [facility]/pharmacy #[id number], 161, cm, 10/29/20 12:39:00 EDT, Height, 99.8, kg, 10/23/20 22:45:00 EDT, Dry Weight Start Date: 10/29/20 Stop Date: 01/27/21 Status: Orderedomeprazole 20 mg oral enteric coated capsule 1 capsule, By Mouth, 2 times a day, # 60 capsule, 2 Refills, Maintenance, 08/24/20 9:33:00 EDT, [facility], 160, cm, 06/04/20 0:50:00 EST, Height, 100, kg, 06/04/20 0:50:00 EST, Dry Weight Start Date: 08/24/20 Status: Orderedondansetron 4 mg oral tablet, disintegrating 1 tablet = 4 mg, By Mouth, 3 times a day, # 21 tablet, 1 Refills, Maintenance, 03/20/20 13:04:00 EST, [facility], Partial fill upon patient [...] oldest [Reference Range]: 1 Height 161 cm (10/29/20 12:39 PM) Weight 100 kg (10/29/20 12:39 PM) Body Mass Index [18.5-24.99] 38.58 *>HHI* (10/29/20 12:39 PM) Weight Obtained Via Patient/family stated (10/29/20 12:39 PM) Social History Social History Type Response Tobacco Use: 4 or less cigarettes(le ss than 1/4 pack)/day in last 30 days. Sex Medical Equipment Implanted Date:07/04/19 Target Site:Abdomen Description Quantity MRI Company Model MESH [employer] ECHO CIR 6 - BARD ([id number]) 1 Bard Unknown KEYLA: {01}[id number] Assigning Authority: FDA
--- OUTSIDE RECORDS SUMMARY | 2022-03-11 02:07 | XMS_ITS | Continuity of Care Document ---
:1980 Author Organization [facility] Address [address] [place] [address]- Care Team Providers Name Role Phone Paulina CARSON, Thu Primary Care Physician [place] [facility] [place] 12/02/21 - 01/01/22 [facility] [address] [place] [address]- Attending Physician: Admtr, Ar8 Allergies, Adverse Reactions, [...] 23-valent vaccine 03/06/16 Given 1Result Comment: FLU [facility] 05175-991-10 Medications albuterol 0.083% inhalation solution 3 mL [...] 10/29/2113:13:00 EDT, Aerosol, Route to Pharmacy Electronically, [id number], [facility]/pharmacy #[id number], 161, cm, 10/29/20 12:39:00 EDT, Hei... [...] a day, # 12 each, 5 Refills, [facility], 161, cm, 10/14/21 8:43:00EDT, Height, 99.8, kg, [...] 0 Refills, Maintenance, 05/10/21 13:30:00 EST, Suppository, [facility]/pharmacy #[id number], Partial fill upon patient request if [...] Refills, Soft Stop, 03/10/20 9:11:00 EST, Tablet, [facility], 160, cm, 03/10/20 8:33:00 EST, Height, 99.9, kg, 1... Start Date: 03/10/20 Stop Date: 09/06/20 Status: Orderedlidocaine 5% topical film 1 patch, Topically, Daily, remove patches after 12 hours, # 30 patch, 0 Refills, Maintenance, 10/23/20 23:42:00 EDT, [facility]/pharmacy #[id number], Partial fill upon patient request if the prescription is for a schedule II opioid drug., 1 patch Topically Daily,x... Start Date: 10/23/20 Stop Date: 11/22/20 Status: OrderedmetFORMIN 500 mg oral tablet 1 tablet, By Mouth, 2 times a day, # 60 tablet, 5 Refills, [facility], 161, cm, 10/29/20 12:39:00 EDT, Height, 99.8, kg, 10/23/20 22:45:00 EDT, Dry Weight Start Date: 05/07/21 Status: OrderedMetoprolol Succinate ER 25 mg oral tablet, extended release 1 tablet, By Mouth, Daily, # 30 tablet, 2 Refills, [facility], 161, cm, 10/29/20 12:39:00 EDT, Height, 99.8, kg, 10/23/20 22:45:00 EDT, Dry Weight Start Date: 04/30/21 Status: Orderednaproxen 500 mg oral tablet 1 tablet = 500 mg, By Mouth, 2 times a day, # 60 tablet, 0 Refills, Maintenance, 10/14/21 8:27:00 EDT, Tablet, [facility]/pharmacy #[id number], Partial fill upon patient request if the prescription is for a schedule II opioid drug., 161, cm, 10/14/21 8:07:00 EDT,... Start Date: 10/14/21 Stop Date: 11/13/21 Status: Orderedomeprazole 20 mg oral enteric coated capsule 1 capsule, By Mouth, 2 times a day, # 60 capsule, 2 Refills, Maintenance, 11/17/21 6:15:00 EDT, [facility]/pharmacy #[id number], 161, cm, 10/14/21 8:43:00 EDT, Height, 99.8, kg, 10/23/20 22:45:00 EDT, Dry Weight Start Date: 11/17/21 Status: Orderedondansetron 4 mg oral tablet, disintegrating 1 tablet = 4 mg, By Mouth, 3 times a day, # 21 tablet, 1 Refills, Maintenance, 03/20/20 13:04:00 EST, [facility], Partial fill upon patient request [...] problem - with severe Active depression/anxiety(Confirmed) Smoker. [employer] has worked in the past Active x 2 but the most recent trial failed and gave patient nightmares, etc.(Confirmed) Adnexal mass - right side 7.6 cm, Active suspected endometrioma(Confirmed) Urinary incontinence(Confirmed) Active Vitamin D Deficiency(Confirmed) Active 1Mild, not on CPAP Social History Social History Type Response Tobacco Use: 4 or less cigarettes(le ss than 1/4 pack)/day in last 30 days. Sex Implantable Device List Procedure Provider Procedure Date Device Type Site Repair Hernia Umbilical Poncho Nascimento MD 07/04/19 Unkno wn Abdomen Laparoscopic Device Serial Lot or Manufacturing Expiration Distinct MRI Implan table Assigning Identifier Number Batch Date Date Identification Safety Status Authority Number Code [id number] Unknown Unknown Unknown 02/04/21 Unknown Unknown Active GS1 731 Care Team PersonnelName: Thu Gallardo NP Address: [address] [place] [address], [address] [place], [place] [address]
--- OUTSIDE RECORDS SUMMARY | 2022-03-11 02:07 | XMS_ITS | Continuity of Care Document ---
:1980 Author Organization [facility] Address [address] [place] [address]- Care Team Providers Name Role Phone Paulina CARSON, Thu Primary Care Physician Encounter [facility] [place] Date(s): 11/26/20 - 01/27/[address] [address]- Attending Physician: Shawna Mullins MD Admitting Physician: Shawna Mullins MD Referring Physician: Thu Gallardo NP Allergies, [...] tetanus/diphtheria/pertussis, acel(Tdap) 03/19/12 Given 1Result Comment: FLU [facility] 15580-288-85 Medications albuterol 0.083% inhalation solution 3 mL [...] 10/29/2113:13:00 EDT, Aerosol, Route to Pharmacy Electronically, [id number], [facility]/pharmacy #[id number], 161, cm, 10/29/20 12:39:00 EDT, Hei... [...] 5 Refills, Maintenance, 10/29/20 14:13:00 EDT, Aerosol, [facility]/pharmacy #[id number], Partial fill upon patient request if [...] Refills, Soft Stop, 03/10/20 9:11:00 EST, Tablet, [facility], 160, cm, 03/10/20 8:33:00 EST, Height, 99.9, kg, 1... Start Date: 03/10/20 Stop Date: 09/06/20 Status: Orderedlidocaine 5% topical film 1 patch, Topically, Daily, remove patches after 12 hours, # 30 patch, 0 Refills, Maintenance, 10/23/20 23:42:00 EDT, [facility]/pharmacy #[id number], Partial fill upon patient request if the prescription is for a schedule II opioid drug., 1 patch Topically Daily,x... Start Date: 10/23/20 Stop Date: 11/22/20 Status: OrderedmetFORMIN 500 mg oral tablet 1 tablet = 500 mg, By Mouth, 2 times a day, # 60 tablet, 5 Refills, Maintenance, 08/17/20 9:43:00 EDT, Tablet, [facility]/pharmacy #[id number], Partial fill upon patient request if the prescription is for a schedule II opioid drug., 160, cm, 06/04/20 0:50:00 EST,... Start Date: 08/17/20 Stop Date: 02/13/21 Status: Orderedmetoprolol 25 mg oral tablet, extended release 25 mg, 1, tablet, By Mouth, Daily, # 30 tablet, Refills 2, Tot. Refills 2, Maintenance, 10/29/20 14:10:00 EDT, Route to Pharmacy Electronically, [facility]/pharmacy #[id number], 161, cm, 10/29/20 12:39:00 EDT, Height, 99.8, kg, 10/23/20 22:45:00 EDT, Dry Weight Start Date: 10/29/20 Stop Date: 01/27/21 Status: Orderedomeprazole 20 mg oral enteric coated capsule 1 capsule, By Mouth, 2 times a day, # 60 capsule, 2 Refills, [facility], 161, cm, 10/29/20 12:39:00 EDT, Height, 99.8, kg, 10/23/20 22:45:00 EDT, Dry Weight Start Date: 12/31/20 Status: Orderedondansetron 4 mg oral tablet, disintegrating 1 tablet = 4 mg, By Mouth, 3 times a day, # 21 tablet, 1 Refills, Maintenance, 03/20/20 13:04:00 EST, [facility], Partial fill upon patient [...] MESH VENTRALIGHT ECHO CIR 6 - BARD ([id number]) 1 Bard Unknown KEYLA: {01}[id number] Assigning Authority: FDA
--- OUTSIDE RECORDS SUMMARY | 2022-03-11 02:07 | XMS_ITS | Continuity of Care Document ---
:1980 Author Organization [address] [place] [address]- Care Team Providers Name Role Phone Paulina CARSON, Thu Primary Care Physician Encounter [facility] [place] Date(s): 03/13/19 - 03/20/[address] [place] [address]- [facility] Encounter Diagnosis Anal fissure (Discharge Diagnosis) - 03/13/19 Attending Physician: Aileen Robin NP Referring Physician: Thu Gallardo NP Allergies, Adverse [...] 02/06/18 16:34:28 EDT, Route to Pharmacy Electronically, [id number], [facility]/pharmacy #[id number] Start Date: 02/06/18 Stop Date: [...] 03/01/19 9:24:08 EST, Route to Pharmacy Electronically, [id number], [facility]/pharmacy #[id number] Start Date: 03/01/19 Stop Date: 05/30/19 Status: [...] Dates Health Status Clinical In formant Service Anal fissure Discharge 03/13/19 Diagnosis Vital Signs Most recent to oldest [Reference Range]: 1 Height 160 cm (03/13/19 8:54 AM) Weight 100.2 kg (03/13/19 8:54 AM) Pulse Rate [55-90 bpm] 87 bpm (03/13/19 8:54 AM) Body Mass Index [18.5-24.99] 39.14 *>HHI* (03/13/19 8:54 AM) Blood Pressure [90-138/55-84 mm Hg] 145/95 mm Hg *H* (03/13/19 8:54 AM) Temperature [96.8-100.4 DegF] 96.5 DegF *L* (03/13/19 8:54 AM) Blood pressure sites Arm, left (03/13/19 8:54 AM) Temperature Route Temporal (03/13/19 8:54 AM) Weight Obtained Via Standing scale (03/13/19 8:54 AM) Social History Social History Type Response Smoking Status Current every day smoker; To bacco user in household: Yes entered on: 06/24/16 Sex
--- OUTSIDE RECORDS SUMMARY | 2022-03-11 02:07 | XMS_ITS | Continuity of Care Document ---
:1980 Author Organization [facility] Address [address] [place] [address]- Care Team Providers Name Role Phone Paulina CARSON, Thu Primary Care Physician [place] [facility] [place](s): 09/09/20 - 10/09/[address] [address]- Attending Physician: Olga Horton Admitting Physician: AdmtrOlga [...] 1Result Comment: FLU [facility] 27598-745-60 Medications albuterol 0.083% inhalation solution 3 mL [...] # 9 tablet, 5 Refills, Soft Stop, 12/01/20 9:11:00 EST, Tablet, [facility], 160, cm, 03/10/20 8:33:00 EST, Height, 99.9, kg, 1... Start Date: 03/10/20 Stop Date: 09/06/20 Status: OrderedmetFORMIN 500 mg oral tablet 1 tablet = 500 mg, By Mouth, 2 times a day, # 60 tablet, 5 Refills, Maintenance, 08/17/20 9:43:00 EDT, Tablet, [facility]/pharmacy #[id number], Partial fill upon patient request if the prescription is for a schedule II opioid drug., 160, cm, 06/04/20 0:50:00 EST,... Start Date: 08/17/20 Stop Date: 02/13/21 Status: Orderedmetoprolol 25 mg oral tablet, extended release 25 mg, 1, tablet, By Mouth, Daily, # 30 tablet, Refills 2, Tot. Refills 2, Maintenance, 03/10/20 9:11:00 EST, Route to Pharmacy Electronically, [facility], 160, cm, 03/10/20 8:33:00 EST, Height, 99.9, kg, 01/11/20 15:23:00 EDT, Dry Weight Start Date: 03/10/20 Stop Date: 06/08/20 Status: Orderedomeprazole 20 mg oral enteric coated capsule 1 capsule, By Mouth, 2 times a day, # 60 capsule, 2 Refills, Maintenance, 08/24/20 9:33:00 EDT, [facility], 160, cm, 06/04/20 0:50:00 EST, Height, 100, kg, 06/04/20 0:50:00 EST, Dry Weight Start Date: 08/24/20 Status: Orderedondansetron 4 mg oral tablet, disintegrating 1 tablet = 4 mg, By Mouth, 3 times a day, # 21 tablet, 1 Refills, Maintenance, 03/20/20 13:04:00 EST, [facility], Partial fill upon patient request if the prescription is for a schedule II opioid drug., 160, cm, 03/10/20 8:33:00 EST, Hei... Start Date: 12/11/20 Status: OrderedQUEtiapine 25 mg oral tablet 25 [...] MESH VENTRALIGHT ECHO CIR 6 - BARD ([id number]) 1 Bard Unknown KEYLA: {01}[id number] Assigning Authority: FDA
--- OUTSIDE RECORDS SUMMARY | 2022-03-11 02:07 | XMS_ITS | Continuity of Care Document ---
:1980 Author Organization [facility] Address [address] [place] [address]- Care Team Providers Name Role Phone Paulina CARSON, Thu Primary Care Physician Encounter [facility] [place] Date(s): 08/10/20 - 09/09/20 [facility] [address] [place] [address]- Allergies, Adverse Reactions, Alerts Substance Reaction Severity [...] Given 1Result Comment: FLU [facility] [id number] Medications albuterol 0.083% inhalation solution 3 mL [...] Refills, Soft Stop, 03/10/20 9:11:00 EST, Tablet, [facility], 160, cm, 03/10/20 8:33:00 EST, Height, 99.9, kg, 1... Start Date: 03/10/20 Stop Date: 09/06/20 Status: OrderedmetFORMIN 500 mg oral tablet 1 tablet = 500 mg, By Mouth, 2 times a day, # 60 tablet, 5 Refills, Maintenance, 08/17/20 9:43:00 EDT, Tablet, [facility]/pharmacy #[id number], Partial fill upon patient request if the prescription is for a schedule II opioid drug., 160, cm, 06/04/20 0:50:00 EST,... Start Date: 08/17/20 Stop Date: 02/13/21 Status: Orderedmetoprolol 25 mg oral tablet, extended release 25 mg, 1, tablet, By Mouth, Daily, # 30 tablet, Refills 2, Tot. Refills 2, Maintenance, 03/10/20 9:11:00 EST, Route to Pharmacy Electronically, [facility], 160, cm, 03/10/20 8:33:00 EST, Height, 99.9, kg, 01/11/20 15:23:00 EDT, Dry Weight Start Date: 03/10/20 Stop Date: 06/08/20 Status: Orderedomeprazole 20 mg oral enteric coated capsule 1 capsule, By Mouth, 2 times a day, # 60 capsule, 2 Refills, Maintenance, 08/24/20 9:33:00 EDT, [facility] 6[facility]79, 160, cm, 06/04/20 0:50:00 EST, Height, 100, kg, 06/04/20 0:50:00 EST, Dry Weight Start Date: 08/24/20 Status: Orderedondansetron 4 mg oral tablet, disintegrating 1 tablet = 4 mg, By Mouth, 3 times a day, # 21 tablet, 1 Refills, Maintenance, 03/20/20 13:04:00 EST, [facility], Partial fill upon [...] MESH VENTRALIGHT ECHO CIR 6 - BARD ([id number]) 1 Bard Unknown KEYLA: {01}[id number] Assigning Authority: FDA
--- OUTSIDE RECORDS SUMMARY | 2022-03-11 02:07 | XMS_ITS | Continuity of Care Document ---
:1980 Author Organization [facility] Address [address] [place] [address] Drive [address] [place] [address]- Care Team Providers Name Role Phone Paulina CARSON, Thu Primary Care Physician [place] [facility] [place] Date(s): 07/04/19 - 08/21/[address] [place] [address]- [facility] Attending Physician: OrthopPoncho gracia MD Allergies, Adverse Reactions, Alerts Substance Reaction [...] tetanus/diphtheria/pertussis, acel(Tdap) 03/19/12 Given 1Result Comment: FLU [facility] [id number] Medications 0.2 % nifedipine hydrophylic ointment 0.2 [...] 02/06/18 16:34:28 EDT, Route to Pharmacy Electronically, [id number], [facility]/pharmacy #[id number] Start Date: 02/06/18 Stop Date: [...] 16:26:00 EDT, Route to Pharmacy Electronically, [facility]/pharmacy #[id number], 160, cm, 07/08/19 16:08:00 EDT, Height, 98.5, kg, 07/03/19 21... Start Date: 07/08/19 Stop Date: 10/06/19 Status: OrderedImitrex 100 mg oral tablet 1 tablet = 100 mg, By Mouth, Daily, PRN as needed for migraine headache, may repeat dose in 2 hours if needed, # 9 tablet, 5 Refills, Soft Stop, 08/20/19 13:35:00 EDT, Tablet, [facility],160, cm, 08/20/19 10:25:00 EDT, Height, 98.5, kg,... Start Date: 08/20/19 Stop Date: 02/16/20 Status: Orderedmetoprolol 25 mg oral tablet, extended release 25 mg, 1, tablet, By Mouth, Daily, # 30 tablet, Refills 2, Tot. Refills 2, Maintenance, 08/20/19 13:34:00 EDT, Route to Pharmacy Electronically, [facility], 160, cm, 08/20/19 10:25:00 EDT, Height, 98.5, kg, 07/03/19 21:15:00 EDT, Dry Weight Start Date: 08/20/19 Stop Date: 11/18/19 Status: Orderedomeprazole 20 mg oral enteric coated capsule 1 capsule = 20 mg, By Mouth, 2 times a day, # 60 capsule, 2 Refills, Maintenance, 08/20/19 13:34:00 EDT, [facility], 160, cm, 08/20/19 10:25:00 [...] MESH VENTRALIGHT ECHO CIR 6 - BARD ([id number]) 1 Bard Unknown KEYAL: {01}[id number] Assigning Authority: FDA
--- OUTSIDE RECORDS SUMMARY | 2022-03-11 02:07 | XMS_ITS | Continuity of Care Document ---
:1980 Author Organization [facility] Adult Address [address] [place] [address]- Care Team Providers Name Role Phone Paulina CARSON, Thu Primary Care Physician Encounter [facility] Date(s): 03/20/20 - 04/19/20 [facility] Adult [address] [place] [address]- Allergies, Adverse Reactions, Alerts Substance Reaction Severity [...] acel(Tdap) 03/19/12 Given 1Result Comment: FLU [facility] 77476-565-11 Medications 0.2 % nifedipine hydrophylic ointment 0.2 [...] , Mild, 07/04/19 13:32:00 EDT Start Date: 3/26/20 Status: Orderedalbuterol 0.083% inhalation solution 3 mL [...] 02/06/18 16:34:28 EDT, Route to Pharmacy Electronically, [id number], [facility]/pharmacy #[id number] Start Date: 02/06/18 Stop Date: [...] Refills, Soft Stop, 03/10/20 9:11:00 EST, Tablet, [facility], 160, cm, 03/10/20 8:33:00 EST, Height, 99.9, kg, 1... Start Date: 03/10/20 Stop Date: 09/06/20 Status: Orderedmetoprolol 25 mg oral tablet, extended release 25 mg, 1, tablet, By Mouth, Daily, # 30 tablet, Refills 2, Tot. Refills 2, Maintenance, 03/10/20 9:11:00 EST, Route to Pharmacy Electronically, [facility], 160, cm, 03/10/20 8:33:00 EST, Height, 99.9, kg, 01/11/20 15:23:00 EDT, Dry Weight Start Date: 03/10/20 Stop Date: 06/08/20 Status: OrderedNuLYTELY with Flavor Packs oral powder for reconstitution See Instructions, 240 mL By Mouth Every 15 minutes, # 4,000 mL, 0 Refills, Maintenance, 11/01/19 11:26:00 EDT, [facility]/pharmacy #[id number], 240 mL By Mouth Every 15 minutes, 160, cm, 11/01/19 10:13:00 EDT, Height, 98.5, kg, 07/03/19 21:15:00 EDT, Dry Weight Start Date: 11/01/19 Status: Orderedomeprazole 20 mg oral enteric coated capsule 1 capsule = 20 mg, By Mouth, 2 times a day, # 60 capsule, 2 Refills, Maintenance, 03/10/20 9:11:00 EST, [facility], 160, cm, 03/10/20 8:33:00 EST, Height, 99.9, kg, 01/11/20 15:23:00 EDT,Dry Weight Start Date: 03/10/20 Stop Date: 06/08/20 Status: Orderedondansetron 4 mg oral tablet, disintegrating 1 tablet = 4 mg, By Mouth, 3 times a day, # 21 tablet, 1 Refills, Maintenance, 03/20/20 13:04:00 EST, [facility], Partial fill upon patient [...] 5 Refills, Maintenance, 11/22/19 11:33:00 EDT, Tablet, [facility], 160, cm, 11/01/19 10:13:00 [...] MESH VENTRALIGHT ECHO CIR 6 - BARD ([id number]) 1 Bard Unknown KEYLA: {01}[id number] Assigning Authority: FDA
--- OUTSIDE RECORDS SUMMARY | 2022-03-11 02:07 | XMS_ITS | Continuity of Care Document ---
:1980 Author Organization [facility] Address [address] [place] [address] Drive [address] [place] [address]- Care Team Providers Name Role Phone Thu Gallardo NP Primary Care Physician [id number] Date(s): 03/13/19 - 06/19/[address] [place] [address]- [facility] Attending Physician: Michael ROCHA, Katelyn Wilhelm Referring Physician: Thu Gallardo NP Allergies, Adverse [...] 1Result Comment: FLU [facility] [id number] Medications 0.2 % nifedipine hydrophylic ointment 0.2 [...] 02/06/18 16:34:28 EDT, Route to Pharmacy Electronically, [id number], [facility]/pharmacy #[id number] Start Date: 02/06/18 Stop Date: 04/07/18 Status: OrderedCPAP Equipment See Instructions, # 1 each, Refills 12, Tot. Refills 12, Maintenance, cpap mask, tubing, filters, head gear, chin strap, water chamber dx sleep apnea, 09/02/15 10:46:27, Compound Start Date: 12/10/14 Status: OrderedDexedrine [...] 05/30/19 9:24:00 EST, Route to Pharmacy Electronically, [facility]/pharmacy #[id number], 160, cm, 04/26/19 9:37:00 EST, [...] 5 Refills, Maintenance, 05/06/19 16:14:00 EST, Tablet, [facility]/pharmacy #[id number], 160, cm, 04/26/19 9:37:00 EST, [...] problem - with severe Active depression/anxiety(Confirmed) Smoker. [employer] has worked in the past Active x [...]
--- OUTSIDE RECORDS SUMMARY | 2022-03-11 02:07 | XMS_ITS | Continuity of Care Document ---
:1980 Author Organization [facility] Adult Address [address] [place] [address]- Care Team Providers Name Role Phone Paulina CARSON, Thu Primary Care Physician [place] [facility] [place] 03/20/20 - 04/19/20 [facility] [address] [place] [address]- Allergies, Adverse Reactions, Alerts Substance Reaction Severity [...] Given 1Result Comment: FLU [facility] 79896-310-03 Medications 0.2 % nifedipine hydrophylic ointment 0.2 [...] 02/06/18 16:34:28 EDT, Route to Pharmacy Electronically, [id number], [facility]/pharmacy #[id number] Start Date: 02/06/18 Stop Date: [...] Refills, Soft Stop, 03/10/20 9:11:00 EST, Tablet, [facility] 3, 160, cm, 03/10/20 8:33:00 EST, Height, 99.9, kg, 1... Start Date: 03/10/20 Stop Date: 09/06/20 Status: Orderedmetoprolol 25 mg oral tablet, extended release 25 mg, 1, tablet, By Mouth, Daily, # 30 tablet, Refills 2, Tot. Refills 2, Maintenance, 03/10/20 9:11:00 EST, Route to Pharmacy Electronically, [facility], 160, cm, 03/10/20 8:33:00 EST, Height, 99.9, kg, 01/11/20 15:23:00 EDT, Dry Weight Start Date: 03/10/20 Stop Date: 06/08/20 Status: OrderedNuLYTELY with Flavor Packs oral powder for reconstitution See Instructions, 240 mL By Mouth Every 15 minutes, # 4,000 mL, 0 Refills, Maintenance, 11/01/19 11:26:00 EDT, [facility]/pharmacy #[id number], 240 mL By Mouth Every 15 minutes, 160, cm, 11/01/19 10:13:00 EDT, Height, 98.5, kg, 07/03/19 21:15:00 EDT, Dry Weight Start Date: 11/01/19 Status: Orderedomeprazole 20 mg oral enteric coated capsule 1 capsule = 20 mg, By Mouth, 2 times a day, # 60 capsule, 2 Refills, Maintenance, 03/10/20 9:11:00 EST, [facility] 3, 160, cm, 03/10/20 8:33:00 EST, Height, 99.9, kg, 01/11/20 15:23:00 EDT,Dry Weight Start Date: 03/10/20 Stop Date: 06/08/20 Status: Orderedondansetron 4 mg oral tablet, disintegrating 1 tablet = 4 mg, By Mouth, 3 times a day, # 21 tablet, 1 Refills, Maintenance, 03/20/20 13:04:00 EST, [facility], Partial fill upon patient [...] 5 Refills, Maintenance, 11/22/19 11:33:00 EDT, Tablet, [facility], 160, cm, 11/01/19 10:13:00 [...] MESH VENTRALIGHT ECHO CIR 6 - BARD ([id number]) 1 Bard Unknown KEYLA: {01}[id number] Assigning Authority: FDA
--- OUTSIDE RECORDS SUMMARY | 2022-03-11 02:07 | XMS_ITS | Continuity of Care Document ---
:1980 Author Organization [facility] Adult Address [address] [place] [address]- Care Team Providers Name Role Phone Paulina CARSON, Thu Primary Care Physician Encounter [facility] Date(s): 01/07/21 - 02/06/21 [facility] [address] [place] [address]- Allergies, Adverse Reactions, Alerts Substance Reaction Severity Status codeine Atypical migraine Active erythromycin N&V - Nausea and vomiting Active azithromycin Nausea and vomiting Active Vicodin Hives/Rash Active Percocet 5/ Hives/Rash [...] tetanus/diphtheria/pertussis, acel(Tdap) 03/19/12 Given 1Result Comment: FLU [facility] 93696-292-68 Medications albuterol 0.083% inhalation solution 3 mL [...] 10/29/2113:13:00 EDT, Aerosol, Route to Pharmacy Electronically, [id number], [facility]/pharmacy #[id number], 161, cm, 10/29/20 12:39:00 EDT, Hei... [...] 5 Refills, Maintenance, 10/29/20 14:13:00 EDT, Aerosol, [facility]/pharmacy #[id number], Partial fill upon patient request if [...] Soft Stop, 03/10/20 9:11:00 EST, Tablet, [facility], 160, cm, 03/10/20 8:33:00 EST, Height, 99.9, kg, 1... Start Date: 03/10/20 Stop Date: 09/06/20 Status: Orderedlidocaine 5% topical film 1 patch, Topically, Daily, remove patches after 12 hours, # 30 patch, 0 Refills, Maintenance, 10/23/20 23:42:00 EDT, [facility]/pharmacy #[id number], Partial fill upon patient request if the prescription is for a schedule II opioid drug., 1 patch Topically Daily,x... Start Date: 10/23/20 Stop Date: 11/22/20 Status: OrderedmetFORMIN 500 mg oral tablet 1 tablet = 500 mg, By Mouth, 2 times a day, # 60 tablet, 5 Refills, Maintenance, 08/17/20 9:43:00 EDT, Tablet, [facility]/pharmacy #[id number], Partial fill upon patient request if the prescription is for a schedule II opioid drug., 160, cm, 06/04/20 0:50:00 EST,... Start Date: 08/17/20 Stop Date: 02/13/21 Status: Orderedmetoprolol 25 mg oral tablet, extended release 25 mg, 1, tablet, By Mouth, Daily, # 30 tablet, Refills 2, Tot. Refills 2, Maintenance, 10/29/20 14:10:00 EDT, Route to Pharmacy Electronically, [facility]/pharmacy #[id number], 161, cm, 10/29/20 12:39:00 EDT, Height, 99.8, kg, 10/23/20 22:45:00 EDT, Dry Weight Start Date: 10/29/20 Stop Date: 01/27/21 Status: Orderedomeprazole 20 mg oral enteric coated capsule 1 capsule, By Mouth, 2 times a day, # 60 capsule, 2 Refills, [id number], 161, cm, 10/29/20 12:39:00 EDT, Height, 99.8, kg, 10/23/20 22:45:00 EDT, Dry Weight Start Date: 12/31/20 Status: Orderedondansetron 4 mg oral tablet, disintegrating 1 tablet = 4 mg, By Mouth, 3 times a day, # 21 tablet, 1 Refills, Maintenance, 03/20/20 13:04:00 EST, [facility], Partial fill upon patient [...] MESH VENTRALIGHT ECHO CIR 6 - BARD ([id number]) 1 Bard Unknown KEYLA: {01}[id number] Assigning Authority: FDA
--- OUTSIDE RECORDS SUMMARY | 2022-03-11 02:07 | XMS_ITS | Continuity of Care Document ---
:1980 Author Organization [facility] Address [address] [place] [address]- Care Team Providers Name Role Phone Paulina CARSON, Thu Primary Care Physician Encounter [facility] Date(s): 01/11/20 - 01/18/20 [facility] [address] [place] [address]- [facility] Encounter Diagnosis Conjunctivitis, left eye (Discharge Diagnosis) - 01/11/20 Blepharitis, left eye (Discharge Diagnosis) - 01/11/20 Attending Physician: Montez ROCHA, Irving Referring Physician: Thu Gallardo NP Allergies, Adverse [...] tetanus/diphtheria/pertussis, acel(Tdap) 03/19/12 Given 1Result Comment: FLU [facility] 34697-204-62 Medications 0.2 % nifedipine hydrophylic ointment 0.2 [...] 02/06/18 16:34:28 EDT, Route to Pharmacy Electronically, [id number], [facility]/pharmacy #[id number] Start Date: 02/06/18 [...] Refills, Soft Stop, 08/20/19 13:35:00 EDT, Tablet, [facility],160, cm, 08/20/19 10:25:00 EDT, Height, 98.5, kg,... Start Date: 08/20/19 Stop Date: 02/16/20 Status: Orderedmetoprolol 25 mg oral tablet, extended release 25 mg, 1, tablet, By Mouth, Daily, # 30 tablet, Refills 2, Tot. Refills 2, Maintenance, 08/20/19 13:34:00 EDT, Route to Pharmacy Electronically, [facility] 3, 160, cm, 08/20/19 10:25:00 EDT, Height, 98.5, kg, 07/03/19 21:15:00 EDT, Dry Weight Start Date: 08/20/19 Stop Date: 11/18/19 Status: OrderedNuLYTELY with Flavor Packs oral powder for reconstitution See Instructions, 240 mL By Mouth Every 15 minutes, # 4,000 mL, 0 Refills, Maintenance, 11/01/19 11:26:00 EDT, [facility]/pharmacy #[id number], 240 mL By Mouth Every 15 minutes, 160, cm, 11/01/19 10:13:00 EDT, Height, 98.5, kg, 07/03/19 21:15:00 EDT, Dry Weight Start Date: 11/01/19 Status: Orderedomeprazole 20 mg oral enteric coated capsule 1 capsule = 20 mg, By Mouth, 2 times a day, # 60 capsule, 2 Refills, Maintenance, 10/28/19 14:45:00 EDT, [facility]/pharmacy #[id number], 160, cm, 08/20/19 10:25:00 EDT, Height, 98.5, kg, 07/03/19 21:15:00 EDT, DryWeight Start Date: 10/28/19 Stop Date: 01/26/20 Status: Orderedondansetron 4 mg oral disintegrating strip 1 each = 4 mg, By Mouth, 3 times a day, PRN Nausea & Vomiting, subligual, # 21 capsule, 0 Refills, Maintenance, 10/28/19 14:46:00 EDT, [facility]/pharmacy #[id number], 160, cm, 08/20/19 10:25:00 [...] 5 Refills, Maintenance, 11/22/19 11:33:00 EDT, Tablet, [facility], 160, cm, 11/01/19 10:13:00 [...] problem - with severe Active depression/anxiety(Confirmed) Smoker. [employer] has worked in the past Active x 2 but the most recent trial failed and gave patient nightmares, etc.(Confirmed) Adnexal mass - right side 7.6 cm, Active suspected endometrioma(Confirmed) Urinary incontinence(Confirmed) Active Vitamin D Deficiency(Confirmed) Active 1Mild, not on CPAP Diagnosis Diagnosis Type Effective Dates Health Status Clinical In formant Service Conjunctivitis, Discharge 01/11/20 left eye Diagnosis Blepharitis, Discharge 01/11/20 left eye Diagnosis Vital Signs Most recent to oldest [Reference Range]: 1 Height 160 cm (01/11/20 3:23 PM) Weight 99.9 kg (01/11/20 3:23 PM) Oxygen Saturation [94-100 %] 100 % (01/11/20 3:23 PM) Pulse Rate [55-90 bpm] 92 bpm *H* (01/11/20 3:23 PM) Body Mass Index [18.5-24.99] 39.02 *>HHI* (01/11/20 3:23 PM) Blood Pressure [90-138/55-84 mm Hg] 145/88 mm Hg *H* (01/11/20 3:23 PM) Respiratory Rate [16-30 br/min] 18 br/min (01/11/20 3:23 PM) Temperature [96.8-100.4 DegF] 98.2 DegF (01/11/20 3:23 PM) Mode of Delivery (Oxygen) Room air (01/11/20 3:23 PM) Blood pressure sites Arm, left (01/11/20 3:23 PM) Temperature Route Oral (01/11/20 3:23 PM) Dry Weight 99.9 kg (01/11/20 3:23 PM) Weight Obtained Via Standing scale (01/11/20 3:23 PM) Dry Weight Obtained Via Standing scale (01/11/20 3:23 PM) Social History Social History Type Response Smoking Status Former smoker, quit more jorge l n 30 days ago entered on: 07/08/19 Sex Medical Equipment Implanted Date:07/04/19 Target Site:Abdomen Description Quantity MRI Company Model MESH VENTRALIGHT ECHO CIR 6 - BARD ([id number]) 1 Bard Unknown KEYLA: {01}[id number] Assigning Authority: FDA
--- OUTSIDE RECORDS SUMMARY | 2022-03-11 02:08 | XMS_ITS | Continuity of Care Document ---
:1980 Author Organization [facility] Address [address] [place] [address]- Care Team Providers Name Role Phone Paulina CARSON, Thu Primary Care Physician En[place] [facility] Date(s): 07/03/19 - 07/05/[address] [address]- [facility] Discharge Disposition: A-D/C Home Attending Physician: Poncho Nascimento MD Admitting Physician: Poncho Nascimento MD Referring Physician: Not on Staff, Referring MD Allergies, Adverse Reactions, Alerts Substance Reaction [...] tetanus/diphtheria/pertussis, acel(Tdap) 03/19/12 Given 1Result Comment: FLU [facility] 57350-641-22 Medications 0.2 % nifedipine hydrophylic ointment 0.2 [...] 02/06/18 16:34:28 EDT, Route to Pharmacy Electronically, [id number], [facility]/pharmacy #[id number] Start Date: 02/06/18 Stop Date: [...] Maintenance, 01/20/15 9:03:36 Start Date: 01/20/15 Status: OrderedHYDROmorphone 2 mg oral tablet 1 tablet = 2 mg, By Mouth, Every 4 hours, PRN Pain , Severe, for 7 days, # 12 tablet, 0 Refills, Acute 07/12/19 8:35:00 EDT, 07/05/19 8:35:00 EDT, Tablet, Partial fill upon patient request Start Date: 07/05/19 Stop Date: 07/12/19 Status: Orderedibuprofen 600 mg oral tablet 600 mg, 1, tablet, By Mouth, 3 times a day, PRN, for 5 days, not to exceed 3200 mg/day. with food ormilk, # 20 tablet, Refills 1, Tot. Refills 1, Acute 07/14/19 13:33:00 EDT, Pain , Mild, 07/04/19 13:33:00 EDT, Print Requisition Start Date: 07/04/19 Stop Date: 07/14/19 Status: Orderedibuprofen 600 mg oral tablet 600 [...] nostril, # 30 mL, 0 Refills, Acute 07/09/19 14:36:00 EDT, 06/25/19 14:36:00 EDT, [place], [facility]/pharmacy #1, 2 sprays Nares, Both 3 times a day,x14 days,Instr:in each nostril, 160, cm, 05/27/19... Start Date: 06/25/19 Stop Date: 07/09/19 Status: Orderedmetoprolol 25 mg oral tablet, extended release 25 mg, 1, tablet, By Mouth, Daily, # 30 tablet, Refills 2, Tot. Refills 2, Maintenance, 05/30/19 9:24:00 EST, Route to Pharmacy Electronically, [facility]/pharmacy #[id number], 160, cm, 04/26/19 9:37:00 EST, [...] capsule, 2 Refills, Maintenance, 04/26/19 12:17:00 EST, [facility]/pharmacy #[id number], 160, cm, 04/26/19 9:37:00 EST, [...] 5 Refills, Maintenance, 05/06/19 16:14:00 EST, Tablet, [facility]/pharmacy #[id number], 160, cm, 04/26/19 9:37:00 EST, [...] problem - with severe Active depression/anxiety(Confirmed) Smoker. [employer] has worked in the past Active x 2 but the most recent trial failed and gave patient nightmares, etc.(Confirmed) Adnexal mass - right side 7.6 cm, Active suspected endometrioma(Confirmed) Urinary incontinence(Confirmed) Active Vitamin D Deficiency(Confirmed) Active 1Mild, not on CPAP Procedures Procedure Date Related Diagnosis Body Site Status Laparoscopic repair of incisional 07/04/19 Completed hernia with prosthesis Vital Signs Most recent to oldest 1 2 3 [Reference Range]: Height 160 cm 160 cm 160 cm (07/05/19 7:15 AM) (07/05/19 5:01 AM) (07/04/19 9:3 2 PM) Weight 98.5 kg 98.5 kg (07/04/19 10:59 AM) (07/03/19 9:15 PM) Oxygen Saturation [94-100 %] 95 % 95 % 98 % (07/05/19 7:15 AM) (07/05/19 5:01 AM) (07/04/19 9:3 2 PM) Pulse Rate [55-90 bpm] 70 bpm 70 bpm 66 bpm (07/05/19 8:38 AM) (07/05/19 7:15 AM) (07/05/19 5:0 1 AM) Body Mass Index [18.5-24.99] 38.48 38.48 *>HHI* *>HHI* (07/04/19 10:59 AM) (07/03/19 9:15 PM) Blood Pressure [90-138/55-84 100/68 mm Hg 100/68 mm Hg 107 /65 mm Hg mm Hg] (07/05/19 8:38 AM) (07/05/19 7:15 AM) (07/05/19 5:0 1 AM) Respiratory Rate [16-30 18 br/min 18 br/min 18 br/mi n br/min] (07/05/19 10:58 AM) (07/05/19 9:38 AM) (07/05/19 7: 51 AM) Temperature [96.8-100.4 DegF] 97.5 DegF 98.2 DegF 98 .1 DegF (07/05/19 7:15 AM) (07/05/19 5:01 AM) (07/04/19 9:3 2 PM) Liters per Minute 2 L/min 6 L/min (07/04/19 2:15 PM) (07/04/19 1:30 PM) Mode of Delivery (Oxygen) Room air Room air Room a ir (07/05/19 7:15 AM) (07/05/19 5:01 AM) (07/04/19 9:3 2 PM) Blood pressure sites Arm, right Arm, right Arm, right (07/05/19 7:15 AM) (07/05/19 5:01 AM) (07/04/19 9:3 2 PM) Temperature Route Oral Oral Oral (07/05/19 7:15 AM) (07/05/19 5:01 AM) (07/04/19 9:3 2 PM) Dry Weight 98.5 kg (07/03/19 9:15 PM) Weight Obtained Via Bed scale (07/03/19 9:15 PM) Dry Weight Obtained Via Bed scale (07/03/19 9:15 PM) Sensory deficits None (07/03/19 9:15 PM) Mobility assistance Independent (07/03/19 9:15 PM) Social History Social History Type Response Smoking Status Current every day smoker; To bacco user in household: Yes entered on: 06/24/16 Sex Medical Equipment Implanted Date:07/04/19 Target Site:Abdomen Description Quantity MRI Company Model MESH VENTRALIGHT ECHO CIR 6 - BARD ([id number]) 1 Bard Unknown KEYLA: {01}[id number] Assigning Authority: FDA
--- OUTSIDE RECORDS SUMMARY | 2022-03-11 02:08 | XMS_ITS | Continuity of Care Document ---
:1980 Author Organization [address] [place] [address]- Care Team Providers Name Role Phone Paulina CARSON, Thu Primary Care Physician Encounter [facility] Date(s): 03/25/19 - 04/04/[address] [place] [address]- [facility] Attending Physician: Olga Horton Admitting Physician: AdmtrOlga [...] 02/06/18 16:34:28 EDT, Route to Pharmacy Electronically, [id number], [facility]/pharmacy #[id number] Start Date: 02/06/18 Stop [...] 03/01/19 9:24:08 EST, Route to Pharmacy Electronically, [id number], [facility]/pharmacy #[id number] Start Date: 03/01/19 Stop Date: 05/30/19 Status: [...]
--- OUTSIDE RECORDS SUMMARY | 2022-03-11 02:08 | XMS_ITS | Continuity of Care Document ---
:1980 Author Organization [facility] Address [address] [place] [address]- Care Team Providers Name Role Phone Paulina CARSON, Thu Primary Care Physician Encounter [facility] Date(s): 03/10/20 - 04/09/20 [facility] [address] [place] [address]- Attending Physician: Admtr, [id number] Allergies, Adverse Reactions, Alerts Substance Reaction Severity [...] Given 1Result Comment: FLU [facility] 50531-553-62 Medications 0.2 % nifedipine hydrophylic ointment 0.2 [...] 02/06/18 16:34:28 EDT, Route to Pharmacy Electronically, [id number], [facility]/pharmacy #[id number] Start Date: 02/06/18 Stop Date: [...] Refills, Soft Stop, 03/10/20 9:11:00 EST, Tablet, [facility], 160, cm, 03/10/20 8:33:00 EST, Height, 99.9, kg, 1... Start Date: 03/10/20 Stop Date: 09/06/20 Status: Orderedmetoprolol 25 mg oral tablet, extended release 25 mg, 1, tablet, By Mouth, Daily, # 30 tablet, Refills 2, Tot. Refills 2, Maintenance, 03/10/20 9:11:00 EST, Route to Pharmacy Electronically, [facility], 160, cm, 03/10/20 8:33:00 EST, Height, 99.9, kg, 01/11/20 15:23:00 EDT, Dry Weight Start Date: 03/10/20 Stop Date: 06/08/20 Status: OrderedNuLYTELY with Flavor Packs oral powder for reconstitution See Instructions, 240 mL By Mouth Every 15 minutes, # 4,000 mL, 0 Refills, Maintenance, 11/01/19 11:26:00 EDT, [facility]/pharmacy #[id number], 240 mL By Mouth Every 15 minutes, 160, cm, 11/01/19 10:13:00 EDT, Height, 98.5, kg, 07/03/19 21:15:00 EDT, Dry Weight Start Date: 11/01/19 Status: Orderedomeprazole 20 mg oral enteric coated capsule 1 capsule = 20 mg, By Mouth, 2 times a day, # 60 capsule, 2 Refills, Maintenance, 03/10/20 9:11:00 EST, [facility] 3, 160, cm, 03/10/20 8:33:00 EST, Height, 99.9, kg, 01/11/20 15:23:00 EDT,Dry Weight Start Date: 03/10/20 Stop Date: 06/08/20 Status: Orderedondansetron 4 mg oral tablet, disintegrating 1 tablet = 4 mg, By Mouth, 3 times a day, # 21 tablet, 1 Refills, Maintenance, 03/20/20 13:04:00 EST, [facility] 3, Partial fill upon patient request [...] 5 Refills, Maintenance, 11/22/19 11:33:00 EDT, Tablet, [facility], 160, cm, 11/01/19 [...] problem - with severe Active depression/anxiety(Confirmed) Smoker. [employer] has worked in the past Active x [...] MESH VENTRALIGHT ECHO CIR 6 - BARD ([id number]) 1 Bard Unknown KEYLA: {01}[id number] Assigning Authority: FDA
--- OUTSIDE RECORDS SUMMARY | 2022-03-11 02:08 | XMS_ITS | Continuity of Care Document ---
:1980 Author Organization [facility] Adult Address [address] [place] [address]- Care Team Providers Name Role Phone Paulina CARSON, Thu Primary Care Physician [place] [facility] [place] 11[place]28/20 [facility] Adult [address] [place] [address]- Attending Physician: Admtr, Ar8 Allergies, Adverse Reactions, [...] tetanus/diphtheria/pertussis, acel(Tdap) 03/19/12 Given 1Result Comment: FLU [facility] 06078-972-45 Medications albuterol 0.083% inhalation solution 3 mL [...] 10/29/2113:13:00 EDT, Aerosol, Route to Pharmacy Electronically, [id number], [facility]/pharmacy #[id number], 161, cm, 10/29/20 12:39:00 EDT, Hei... [...] 5 Refills, Maintenance, 10/29/20 14:13:00 EDT, Aerosol, [facility]/pharmacy #0693, Partial fill upon patient request if [...] Refills, Soft Stop, 03/10/20 9:11:00 EST, Tablet, [facility], 160, cm, 03/10/20 8:33:00 EST, Height, 99.9, kg, 1... Start Date: 03/10/20 Stop Date: 09/06/20 Status: Orderedlidocaine 5% topical film 1 patch, Topically, Daily, remove patches after 12 hours, # 30 patch, 0 Refills, Maintenance, 10/23/20 23:42:00 EDT, [facility]/pharmacy #[id number], Partial fill upon patient request if the prescription is for a schedule II opioid drug., 1 patch Topically Daily,x... Start Date: 10/23/20 Stop Date: 11/22/20 Status: OrderedmetFORMIN 500 mg oral tablet 1 tablet = 500 mg, By Mouth, 2 times a day, # 60 tablet, 5 Refills, Maintenance, 08/17/20 9:43:00 EDT, Tablet, [facility]/pharmacy #[id number], Partial fill upon patient request if the prescription is for a schedule II opioid drug., 160, cm, 06/04/20 0:50:00 EST,... Start Date: 08/17/20 Stop Date: 02/13/21 Status: Orderedmetoprolol 25 mg oral tablet, extended release 25 mg, 1, tablet, By Mouth, Daily, # 30 tablet, Refills 2, Tot. Refills 2, Maintenance, 10/29/20 14:10:00 EDT, Route to Pharmacy Electronically, [facility]/pharmacy #0693, 161, cm, 10/29/20 12:39:00 EDT, Height, 99.8, kg, 10/23/20 22:45:00 EDT, Dry Weight Start Date: 10/29/20 Stop Date: 01/27/21 Status: Orderedomeprazole 20 mg oral enteric coated capsule 1 capsule, By Mouth, 2 times a day, # 60 capsule, 2 Refills, Maintenance, 08/24/20 9:33:00 EDT, [facility] STORE [facility]1759, 160, cm, 06/04/20 0:50:00 EST, Height, 100, kg, 06/04/20 0:50:00 EST, Dry Weight Start Date: 08/24/20 Status: Orderedondansetron 4 mg oral tablet, disintegrating 1 tablet = 4 mg, By Mouth, 3 times a day, # 21 tablet, 1 Refills, Maintenance, 03/20/20 13:04:00 EST, [facility], Partial fill upon patient [...] MESH VENTRALIGHT ECHO CIR 6 - BARD ([id number]) 1 Bard Unknown KEYLA: {01}[id number] Assigning Authority: FDA
--- OUTSIDE RECORDS SUMMARY | 2022-03-11 02:08 | XMS_ITS | Continuity of Care Document ---
:1980 Author Organization [facility] Adult Address [address] [place] [address]- Care Team Providers Name Role Phone Paulina REVERSE ENGINEER, Thu Primary Care Physician En[place] [facility] [place] Date(s): 10/04/21 - 11/03/21 [facility] Adult [address] [place] [address]- Allergies, Adverse Reactions, Alerts Substance Reaction Severity [...] 23-valent vaccine 03/06/16 Given 1Result Comment: FLU [facility] 47609-841-72 Medications albuterol 0.083% inhalation solution 3 mL [...] 10/29/2113:13:00 EDT, Aerosol, Route to Pharmacy Electronically, [id number], [facility]/pharmacy #[id number], 161, cm, [...] a day, # 12 each, 4 Refills, [facility] STORE 81525, 161, cm, 10/29/20 12:39:00 EDT, Height, 99.8, [...] Refills, Soft Stop, 03/10/20 9:11:00 EST, Tablet, [facility], 160, cm, 03/10/20 8:33:00 [...] # 60 tablet, 5 Refills, [facility], 161, cm, 10/29/20 12:39:00 EDT, Height, 99.8, kg, 10/23/20 22:45:00 EDT, Dry Weight Start Date: 05/07/21 Status: OrderedMetoprolol Succinate ER 25 mg oral tablet, extended release 1 tablet, By Mouth, Daily, # 30 tablet, 2 Refills, [facility], 161, cm, 10/29/20 12:39:00 EDT, Height, 99.8, kg, 10/23/20 22:45:00 EDT, Dry Weight Start Date: 04/30/21 Status: Orderednaproxen 500 mg oral tablet 1 tablet = 500 mg, By Mouth, 2 times a day, # 60 tablet, 0 Refills, Maintenance, 10/14/21 8:27:00 EDT, Tablet, [facility]/pharmacy #2071, Partial fill upon patient request if the prescription is for a schedule II opioid drug., 161, cm, 10/14/21 8:07:00 EDT,... Start Date: 10/14/21 Stop Date: 11/13/21 Status: Orderedomeprazole 20 mg oral enteric coated capsule 1 capsule, By Mouth, 2 times a day, # 60 capsule, 2 Refills, [facility], 161, cm, 10/29/20 12:39:00 EDT, Height, 99.8, kg, 10/23/20 22:45:00 EDT, Dry Weight Start Date: 07/08/21 Status: Orderedondansetron 4 mg oral tablet, disintegrating 1 tablet = 4 mg, By Mouth, 3 times a day, # 21 tablet, 1 Refills, Maintenance, 03/20/20 13:04:00 EST, [facility], Partial fill upon patient request [...] 0 Refills, Maintenance, 10/14/21 8:38:00 EDT, Tablet, [facility]/pharmacy #6371, Partial fill upon patient request if the [...] problem - with severe Active depression/anxiety(Confirmed) Smoker. [employer] has worked in the past Active x [...] MESH VENTRALIGHT ECHO CIR 6 - BARD ([id number]) 1 Bard Unknown KEYLA: {01}[id number] Assigning Authority: FDA
--- OUTSIDE RECORDS SUMMARY | 2022-03-11 02:08 | XMS_ITS | Continuity of Care Document ---
:1980 Author Organization [facility] Address Unavailable , Care Team Providers Name Role Phone Paulina CARSON, Thu Primary Care Physician [place] [facility] [place] 05/07/21 - 05/14/21 [facility] Attending Physician: Lobito CARSON, Aileen Gustafson Referring Physician: Thu Gallardo NP Allergies, Adverse Reactions, Alerts Substance Reaction Severity Status codeine Atypical migraine Active erythromycin N&V - Nausea and vomiting Active azithromycin Nausea and vomiting Active Vicodin Hives/Rash Active Percocet Hives/Rash Active Reglan agitation (has ripped her [...] 03/19/12 Given 1Result Comment: FLU [facility] 46311-940-84 Medications albuterol 0.083% inhalation solution 3 mL [...] 10/29/2113:13:00 EDT, Aerosol, Route to Pharmacy Electronically, [id number], [facility]/pharmacy #[id number], 161, cm, 10/29/20 12:39:00 EDT, [...] 5 Refills, Maintenance, 10/29/20 14:13:00 EDT, Aerosol, [facility]/pharmacy #0693, Partial fill upon patient request [...] 0 Refills, Maintenance, 05/10/21 13:30:00 EST, Suppository, [facility]/pharmacy #0693, Partial fill upon patient request [...] Refills, Soft Stop, 03/10/20 9:11:00 EST, Tablet, [facility], 160, cm, 03/10/20 8:33:00 EST, Height, 99.9, kg, 1... Start Date: 03/10/20 Stop Date: 09/06/20 Status: Orderedlidocaine 5% topical film 1 patch, Topically, Daily, remove patches after 12 hours, # 30 patch, 0 Refills, Maintenance, 10/23/20 23:42:00 EDT, [facility]/pharmacy #2071, Partial fill upon patient request if the prescription is for a schedule II opioid drug., 1 patch Topically Daily,x... Start Date: 10/23/20 Stop Date: 11/22/20 Status: OrderedmetFORMIN 500 mg oral tablet 1 tablet, By Mouth, 2 times a day, # 60 tablet, 5 Refills, [facility], 161, cm, 10/29/20 12:39:00 EDT, Height, 99.8, kg, 10/23/20 22:45:00 EDT, Dry Weight Start Date: 05/07/21 Status: OrderedMetoprolol Succinate ER 25 mg oral tablet, extended release 1 tablet, By Mouth, Daily, # 30 tablet, 2 Refills, [facility], 161, cm, 10/29/20 12:39:00 EDT, Height, 99.8, kg, 10/23/20 22:45:00 EDT, Dry Weight Start Date: 04/30/21 Status: Orderedomeprazole 20 mg oral enteric coated capsule 1 capsule, By Mouth, 2 times a day, # 60 capsule, 2 Refills, [facility], 161, cm, 10/29/20 12:39:00 EDT, Height, 99.8, [...] II opioid drug., 160, cm, 03/10/20 8:33:00 Kehinde GOMEZ... Start Date: 03/20/20 Status: OrderedQUEtiapine 25 mg [...] problem - with severe Active depression/anxiety(Confirmed) Smoker. [employer] has worked in the past Active x [...] MESH VENTRALIGHT ECHO CIR 6 - BARD ([id number]) 1 Bard Unknown KEYLA: {01}[id number] Assigning Authority: FDA
--- OUTSIDE RECORDS SUMMARY | 2022-03-11 02:08 | XMS_ITS | Continuity of Care Document ---
:1980 Author Organization [facility] Adult Address [address] [place] [address]- Care Team Providers Name Role Phone Paulina CARSON, Thu Primary Care Physician En[place] [facility] [place] Date(s): 04/02/19 - 04/12/19 [facility] Adult [address] [place] [address]- [facility] Attending Physician: Admtr, Olga Allergies, Adverse Reactions, Alerts Substance Reaction Severity [...] 02/06/18 16:34:28 EDT, Route to Pharmacy Electronically, [id number], [facility]/pharmacy #0843 Start Date: 02/06/18 [...] 03/01/19 9:24:08 EST, Route to Pharmacy Electronically, [id number], [facility]/pharmacy #[id number] Start Date: 03/01/19 Stop Date: 05/30/19 Status: [...] SUBSTITUTIONS, # 60 capsule, 5 Refills, Maintenance, 199:25:44 EST Start Date: 03/01/19 Stop Date: 08/28/19 [...]
--- OUTSIDE RECORDS SUMMARY | 2022-03-11 02:08 | XMS_ITS | Continuity of Care Document ---
:1980 Author Organization [facility] Adult Address [address] [place] [address]- Care Team Providers Name Role Phone Paulina CARSON, Thu Primary Care Physician Encounter [facility] [place] Date(s): 07/15/21 - 07/22/21 [facility] Adult [address] [place] [address]- Encounter Diagnosis Foot callus (Discharge Diagnosis) - 07/15/21 Cellulitis of left foot (Discharge Diagnosis) - 07/15/21 Attending Physician: Roger Begum NP Allergies, Adverse Reactions, Alerts Substance Reaction [...] 23-valent vaccine 03/06/16 Given 1Result Comment: FLU [facility] 85586-213-75 Medications albuterol 0.083% inhalation solution 3 mL [...] 10/29/2113:13:00 EDT, Aerosol, Route to Pharmacy Electronically, [id number], [facility]/pharmacy #[id number], 161, cm, 10/29/20 12:39:00 EDT, Hei... [...] a day, # 12 each, 4 Refills, [facility] STORE 38400, 161, cm, 10/29/20 12:39:00 EDT, Height, 99.8, [...] 0 Refills, Maintenance, 05/10/21 13:30:00 EST, Suppository, [facility], Partial fill upon patient request if the [...] Refills, Soft Stop, 03/10/20 9:11:00 EST, Tablet, [facility], 160, cm, 03/10/20 8:33:00 EST, Height, 99.9, kg, 1... Start Date: 03/10/20 Stop Date: 09/06/20 Status: Orderedlidocaine 5% topical film 1 patch, Topically, Daily, remove patches after 12 hours, # 30 patch, 0 Refills, Maintenance, 10/23/20 23:42:00 EDT, [facility], Partial fill upon patient request if the prescription is for a schedule II opioid drug., 1 patch Topically Daily,x... Start Date: 10/23/20 Stop Date: 11/22/20 Status: OrderedmetFORMIN 500 mg oral tablet 1 tablet, By Mouth, 2 times a day, # 60 tablet, 5 Refills, [facility], 161, cm, 10/29/20 12:39:00 EDT, Height, 99.8, kg, 10/23/20 22:45:00 EDT, Dry Weight Start Date: 05/07/21 Status: OrderedMetoprolol Succinate ER 25 mg oral tablet, extended release 1 tablet, By Mouth, Daily, # 30 tablet, 2 Refills, [facility], 161, cm, 10/29/20 12:39:00 EDT, Height, 99.8, kg, 10/23/20 22:45:00 EDT, Dry Weight Start Date: 04/30/21 Status: Orderedomeprazole 20 mg oral enteric coated capsule 1 capsule, By Mouth, 2 times a day, # 60 capsule, 2 Refills, [facility] 422[facility], 161, cm, 10/29/20 12:39:00 EDT, Height, 99.8, kg, 10/23/20 22:45:00 EDT, Dry Weight Start Date: 07/08/21 Status: Orderedondansetron 4 mg oral tablet, disintegrating 1 tablet = 4 mg, By Mouth, 3 times a day, # 21 tablet, 1 Refills, Maintenance, 03/20/20 13:04:00 EST, [facility], Partial fill upon patient [...] CPAP Diagnosis Diagnosis Type Effective Dates Health Clinical Infor mant Status Service Foot callus Discharge 07/15/21 Diagnosis Cellulitis of Discharge 07/15/21 left foot Diagnosis Vital Signs Most recent to oldest [Reference Range]: 1 Height 161 cm (07/15/21 2:41 PM) Weight 95.6 kg (07/15/21 2:41 PM) Oxygen Saturation [94-100 %] 98 % (07/15/21 2:41 PM) Pulse Rate [55-90 bpm] 71 bpm (07/15/21 2:41 PM) Body Mass Index [18.5-24.99] 36.88 *>HHI* (07/15/21 2:41 PM) Blood Pressure [90-138/55-84 mm Hg] 133/89 mm Hg (07/15/21 2:41 PM) Temperature [96.8-100.4 DegF] 98 DegF (07/15/21 2:41 PM) Mode of Delivery (Oxygen) Room air (07/15/21 2:41 PM) Blood pressure sites Arm, left (07/15/21 2:41 PM) Temperature Route Oral (07/15/21 2:41 PM) Weight Obtained Via Standing scale (07/15/21 2:41 PM) Social History Social History Type Response Tobacco Use: 4 or less cigarettes(le ss than 1/4 pack)/day in last 30 days. Sex Medical Equipment Implanted Date:07/04/19 Target Site:Abdomen Description Quantity MRI Company Model MESH VENTRALIGHT ECHO CIR 6 - BARD ([id number]) 1 Bard Unknown KEYLA: {01}[id number] Assigning Authority: FDA
--- OUTSIDE RECORDS SUMMARY | 2022-03-11 02:08 | XMS_ITS | Continuity of Care Document ---
:1980 Author Organization [address] [place] [address]- Care Team Providers Name Role Phone Paulina CARSON, Thu Primary Care Physician [place] [facility] [place](s[place] 09/09/19 - 10/09/[address] [place] [address]- [facility] Attending Physician: Olga Horton Admitting Physician: AdmtrOlga [...] tetanus/diphtheria/pertussis, acel(Tdap) 03/19/12 Given 1Result Comment: FLU [facility] 37464-146-70 Medications 0.2 % nifedipine hydrophylic ointment 0.2 [...] 02/06/18 16:34:28 EDT, Route to Pharmacy Electronically, [id number], [facility]/pharmacy #[id number] Start Date: 02/06/18 Stop Date: [...] Refills, Soft Stop, 08/20/19 13:35:00 EDT, Tablet, [facility],160, cm, 08/20/19 10:25:00 EDT, Height, 98.5, kg,... Start Date: 08/20/19 Stop Date: 02/16/20 Status: Orderedmetoprolol 25 mg oral tablet, extended release 25 mg, 1, tablet, By Mouth, Daily, # 30 tablet, Refills 2, Tot. Refills 2, Maintenance, 08/20/19 13:34:00 EDT, Route to Pharmacy Electronically, [facility], 160, cm, 08/20/19 10:25:00 EDT, Height, 98.5, kg, 07/03/19 21:15:00 EDT, Dry Weight Start Date: 08/20/19 Stop Date: 11/18/19 Status: Orderedomeprazole 20 mg oral enteric coated capsule 1 capsule = 20 mg, By Mouth, 2 times a day, # 60 capsule, 2 Refills, Maintenance, 08/20/19 13:34:00 EDT, [facility], 160, cm, 08/20/19 10:25:00 [...] 5 Refills, Maintenance, 05/06/19 16:14:00 EST, Tablet, [facility]/pharmacy #[id number], 160, cm, 04/26/19 9:37:00 EST, [...] problem - with severe Active depression/anxiety(Confirmed) Smoker. [employer] has worked in the past Active x [...] MESH VENTRALIGHT ECHO CIR 6 - BARD ([id number]) 1 Bard Unknown KEYLA: {01}[id number] Assigning Authority: FDA
--- OUTSIDE RECORDS SUMMARY | 2022-03-11 02:08 | XMS_ITS | Continuity of Care Document ---
:1980 Author Organization [facility] Address [address] [place] [address] Drive [address] [place] [address]- Care Team Providers Name Role Phone Paulina CARSON, Thu Primary Care Physician Encounter [facility] [place] Date(s): 06/05/19 - 09/04/[address] [place] [address]- [facility] Attending Physician: OrthopPoncho gracia MD Allergies, Adverse [...] acel(Tdap) 03/19/12 Given 1Result Comment: FLU [facility] 74850-466-49 Medications 0.2 % nifedipine hydrophylic ointment 0.2 [...] 02/06/18 16:34:28 EDT, Route to Pharmacy Electronically, [id number], [facility]/pharmacy #[id number] Start Date: 02/06/18 Stop Date: 04/07/18 [...] 07/08/19 16:26:00 EDT, Route to Pharmacy Electronically, [facility]/pharmacy #[id number], 160, cm, 07/08/19 16:08:00 EDT, Height, 98.5, kg, 07/03/19 21... Start Date: 07/08/19 Stop Date: 10/06/19 Status: OrderedImitrex 100 mg oral tablet 1 tablet = 100 mg, By Mouth, Daily, PRN as needed for migraine headache, may repeat dose in 2 hours if needed, # 9 tablet, 5 Refills, Soft Stop, 08/20/19 13:35:00 EDT, Tablet, [facility],160, cm, 08/20/19 10:25:00 EDT, Height, 98.5, kg,... Start Date: 08/20/19 Stop Date: 02/16/20 Status: Orderedmetoprolol 25 mg oral tablet, extended release 25 mg, 1, tablet, By Mouth, Daily, # 30 tablet, Refills 2, Tot. Refills 2, Maintenance, 08/20/19 13:34:00 EDT, Route to Pharmacy Electronically, [facility], 160, cm, 08/20/19 10:25:00 EDT, Height, 98.5, kg, 07/03/19 21:15:00 EDT, Dry Weight Start Date: 08/20/19 Stop Date: 11/18/19 Status: Orderedomeprazole 20 mg oral enteric coated capsule 1 capsule = 20 mg, By Mouth, 2 times a day, # 60 capsule, 2 Refills, Maintenance, 08/20/19 13:34:00 EDT, [facility], 160, cm, 08/20/19 10:25:00 [...] MESH VENTRALIGHT ECHO CIR 6 - BARD ([id number]) 1 Bard Unknown KEYLA: {01}[id number] Assigning Authority: FDA
--- OUTSIDE RECORDS SUMMARY | 2022-03-11 02:08 | XMS_ITS | Continuity of Care Document ---
:1980 Author Organization [address] [place] [address]- Care Team Providers Name Role Phone Thu Gallardo NP Primary Care Physician Encounter [facility] [place] Date(s): 06/17/19 - 07/18/[address] [place] [address]- [facility] Attending Physician: Aileen Robin NP Referring Physician: [...] Given 1Result Comment: FLU [facility] 96218-990-86 Medications 0.2 % nifedipine hydrophylic ointment 0.2 [...] 02/06/18 16:34:28 EDT, Route to Pharmacy Electronically, [id number], [facility]/pharmacy #[id number] Start Date: 02/06/18 Stop Date: [...] 07/08/19 16:26:00 EDT, Route to Pharmacy Electronically, [facility]/pharmacy #[id number], 160, cm, 07/08/19 16:08:00 EDT, Height, [...] 05/30/19 9:24:00 EST, Route to Pharmacy Electronically, [facility]/pharmacy #[id number], 160, cm, 04/26/19 9:37:00 EST, [...] capsule, 2 Refills, Maintenance, 04/26/19 12:17:00 EST, [facility]/pharmacy #[id number], 160, cm, 04/26/19 9:37:00 EST, [...] 5 Refills, Maintenance, 05/06/19 16:14:00 EST, Tablet, [facility]/pharmacy #[id number], 160, cm, 04/26/19 9:37:00 EST, [...] problem - with severe Active depression/anxiety(Confirmed) Smoker. [employer] has worked in the past Active x [...] MESH VENTRALIGHT ECHO CIR 6 - BARD ([id number]) 1 Bard Unknown KEYLA: {01}[id number] Assigning Authority: FDA
--- OUTSIDE RECORDS SUMMARY | 2022-03-11 02:08 | XMS_ITS | Continuity of Care Document ---
:1980 Author Organization [facility] Address [address] [place] [address]- Care Team Providers Name Role Phone Paulina CARSON, Thu Primary Care Physician [place] [facility] [place](s): 07/28/20 - 10/09/[address] [address] Attending Physician: Mame Eli Admitting Physician: Mame Eli Referring Physician: Thu Gallardo NP Allergies, Adverse [...] tetanus/diphtheria/pertussis, acel(Tdap) 03/19/12 Given 1Result Comment: FLU [facility] 48425-221-63 Medications albuterol 0.083% inhalation solution 3 mL [...] Refills, Soft Stop, 03/10/20 9:11:00 EST, Tablet, [facility], 160, cm, 03/10/20 8:33:00 EST, Height, 99.9, kg, 1... Start Date: 03/10/20 Stop Date: 09/06/20 Status: OrderedmetFORMIN 500 mg oral tablet 1 tablet = 500 mg, By Mouth, 2 times a day, # 60 tablet, 5 Refills, Maintenance, 08/17/20 9:43:00 EDT, Tablet, [facility]/pharmacy #[id number], Partial fill upon patient request if the prescription is for a schedule II opioid drug., 160, cm, 06/04/20 0:50:00 EST,... Start Date: 08/17/20 Stop Date: 02/13/21 Status: Orderedmetoprolol 25 mg oral tablet, extended release 25 mg, 1, tablet, By Mouth, Daily, # 30 tablet, Refills 2, Tot. Refills 2, Maintenance, 03/10/20 9:11:00 EST, Route to Pharmacy Electronically, [facility], 160, cm, 03/10/20 8:33:00 EST, Height, 99.9, kg, 01/11/20 15:23:00 EDT, Dry Weight Start Date: 03/10/20 Stop Date: 06/08/20 Status: Orderedomeprazole 20 mg oral enteric coated capsule 1 capsule, By Mouth, 2 times a day, # 60 capsule, 2 Refills, Maintenance, 08/24/20 9:33:00 EDT, [facility] STORE 72702, 160, cm, 06/04/20 0:50:00 EST, Height, 100, kg, 06/04/20 0:50:00 EST, Dry Weight Start Date: 08/24/20 Status: Orderedondansetron 4 mg oral tablet, disintegrating 1 tablet = 4 mg, By Mouth, 3 times a day, # 21 tablet, 1 Refills, Maintenance, 03/20/20 13:04:00 EST, [facility], Partial fill upon [...] problem - with severe Active depression/anxiety(Confirmed) Smoker. [employer] has worked in the past Active x [...] MESH VENTRALIGHT ECHO CIR 6 - BARD ([id number]) 1 Bard Unknown KEYLA: {01}[id number] Assigning Authority: FDA
--- OUTSIDE RECORDS SUMMARY | 2022-03-11 02:08 | XMS_ITS | Continuity of Care Document ---
:1980 Author Organization [facility] Address [address] [place] [address]- Care Team Providers Name Role Phone Paulina CARSON, Thu Primary Care Physician Encounter [facility] Date(s): 11/20/21 - 12/20/21 [facility] [address] [place] [address]- Attending Physician: Olga Horton Admitting Physician: AdmOlga wong Referring Physician: AdmtrOlga Allergies, Adverse Reactions, Alerts [...] 23-valent vaccine 03/06/16 Given 1Result Comment: FLU [facility] 77759-993-11 Medications albuterol 0.083% inhalation solution 3 mL [...] 10/29/2113:13:00 EDT, Aerosol, Route to Pharmacy Electronically, [id number], [facility]/pharmacy #[id number], 161, cm, 10/29/20 12:39:00 EDT, [...] a day, # 12 each, 5 Refills, [facility], 161, cm, 10/14/21 8:43:00EDT, Height, 99.8, kg, [...] 0 Refills, Maintenance, 05/10/21 13:30:00 EST, Suppository, [facility]/pharmacy #[id number], Partial fill upon patient request [...] Refills, Soft Stop, 03/10/20 9:11:00 EST, Tablet, [facility], 160, cm, 03/10/20 8:33:00 EST, Height, 99.9, kg, 1... Start Date: 03/10/20 Stop Date: 09/06/20 Status: Orderedlidocaine 5% topical film 1 patch, Topically, Daily, remove patches after 12 hours, # 30 patch, 0 Refills, Maintenance, 10/23/20 23:42:00 EDT, [facility]/pharmacy #1011, Partial fill upon patient request if the prescription is for a schedule II opioid drug., 1 patch Topically Daily,x... Start Date: 10/23/20 Stop Date: 11/22/20 Status: OrderedmetFORMIN 500 mg oral tablet 1 tablet, By Mouth, 2 times a day, # 60 tablet, 5 Refills, [facility] 19223, 161, cm, 10/29/20 12:39:00 EDT, Height, 99.8, kg, 10/23/20 22:45:00 EDT, Dry Weight Start Date: 05/07/21 Status: OrderedMetoprolol Succinate ER 25 mg oral tablet, extended release 1 tablet, By Mouth, Daily, # 30 tablet, 2 Refills, [facility], 161, cm, 10/29/20 12:39:00 EDT, Height, 99.8, kg, 10/23/20 22:45:00 EDT, Dry Weight Start Date: 04/30/21 Status: Orderednaproxen 500 mg oral tablet 1 tablet = 500 mg, By Mouth, 2 times a day, # 60 tablet, 0 Refills, Maintenance, 10/14/21 8:27:00 EDT, Tablet, [facility]/pharmacy #[id number], Partial fill upon patient request if the prescription is for a schedule II opioid drug., 161, cm, 10/14/21 8:07:00 EDT,... Start Date: 10/14/21 Stop Date: 11/13/21 Status: Orderedomeprazole 20 mg oral enteric coated capsule 1 capsule, By Mouth, 2 times a day, # 60 capsule, 2 Refills, Maintenance, 11/17/21 6:15:00 EDT, [facility]/pharmacy #[id number], 161, cm, 10/14/21 8:43:00 EDT, Height, 99.8, kg, 10/23/20 22:45:00 EDT, Dry Weight Start Date: 11/17/21 Status: Orderedondansetron 4 mg oral tablet, disintegrating 1 tablet = 4 mg, By Mouth, 3 times a day, # 21 tablet, 1 Refills, Maintenance, 03/20/20 13:04:00 EST, [facility], Partial fill upon patient [...] 0 Refills, Maintenance, 10/14/21 8:38:00 EDT, Tablet, [facility]/pharmacy #6131, Partial fill upon patient request if the [...] problem - with severe Active depression/anxiety(Confirmed) Smoker. [employer] has worked in the past Active x [...] Date Identification Safety Status Authority Number Code [id number] Unknown Unknown Unknown 02/04/21 Unknown Unknown Active GS1 731 Care Team PersonnelName: Thu Gallardo NP Address: [address] [facility], [address] [place], [place] [address]
--- OUTSIDE RECORDS SUMMARY | 2022-03-11 02:08 | XMS_ITS | Continuity of Care Document ---
:1980 Author Organization [address] [place] [address]- Care Team Providers Name Role Phone Thu Gallardo NP Primary Care Physician Encounter [facility] Date(s): 09/09/19 - 09/16/[address] [place] [address]- [facility] Attending Physician: Poncho Nascimento MD Referring Physician: [...] tetanus/diphtheria/pertussis, acel(Tdap) 03/19/12 Given 1Result Comment: FLU [facility] 74671-400-24 Medications 0.2 % nifedipine hydrophylic ointment 0.2 [...] 02/06/18 16:34:28 EDT, Route to Pharmacy Electronically, [id number], [facility]/pharmacy #[id number] Start Date: 02/06/18 Stop Date: [...] 07/08/19 16:26:00 EDT, Route to Pharmacy Electronically, [facility]/pharmacy #[id number], 160, cm, 07/08/19 16:08:00 EDT, Height, 98.5, kg, 07/03/19 21... Start Date: 07/08/19 Stop Date: 10/06/19 Status: OrderedImitrex 100 mg oral tablet 1 tablet = 100 mg, By Mouth, Daily, PRN as needed for migraine headache, may repeat dose in 2 hours if needed, # 9 tablet, 5 Refills, Soft Stop, 08/20/19 13:35:00 EDT, Tablet, [facility],160, cm, 08/20/19 10:25:00 EDT, Height, 98.5, kg,... Start Date: 08/20/19 Stop Date: 02/16/20 Status: Orderedmetoprolol 25 mg oral tablet, extended release 25 mg, 1, tablet, By Mouth, Daily, # 30 tablet, Refills 2, Tot. Refills 2, Maintenance, 08/20/19 13:34:00 EDT, Route to Pharmacy Electronically, [facility], 160, cm, 08/20/19 10:25:00 EDT, Height, 98.5, kg, 07/03/19 21:15:00 EDT, Dry Weight Start Date: 08/20/19 Stop Date: 11/18/19 Status: Orderedomeprazole 20 mg oral enteric coated capsule 1 capsule = 20 mg, By Mouth, 2 times a day, # 60 capsule, 2 Refills, Maintenance, 08/20/19 13:34:00 EDT, [facility], 160, cm, 08/20/19 10:25:00 [...] MESH VENTRALIGHT ECHO CIR 6 - BARD ([id number]) 1 Bard Unknown KEYLA: {01}[id number] Assigning Authority: FDA
--- OUTSIDE RECORDS SUMMARY | 2022-03-11 02:08 | XMS_ITS | Continuity of Care Document ---
:1980 Author Organization [facility] Address [address] [place] [address]- Care Team Providers Name Role Phone Paulina CARSON, Thu Primary Care Physician [place] [facility] [place] 08/20/20 - 08/27/20 [facility] [address] [place] [address]- Attending Physician: Not on Staff, Attending MD Allergies, Adverse Reactions, Alerts Substance Reaction [...] tetanus/diphtheria/pertussis, acel(Tdap) 03/19/12 Given 1Result Comment: FLU [facility] [id number] Medications albuterol 0.083% inhalation solution 3 mL [...] Refills, Soft Stop, 03/10/20 9:11:00 EST, Tablet, [facility], 160, cm, 03/10/20 8:33:00 EST, Height, 99.9, kg, 1... Start Date: 03/10/20 Stop Date: 09/06/20 Status: OrderedmetFORMIN 500 mg oral tablet 1 tablet = 500 mg, By Mouth, 2 times a day, # 60 tablet, 5 Refills, Maintenance, 08/17/20 9:43:00 EDT, Tablet, [facility]/pharmacy #[id number], Partial fill upon patient request if the prescription is for a schedule II opioid drug., 160, cm, 06/04/20 0:50:00 EST,... Start Date: 08/17/20 Stop Date: 02/13/21 Status: Orderedmetoprolol 25 mg oral tablet, extended release 25 mg, 1, tablet, By Mouth, Daily, # 30 tablet, Refills 2, Tot. Refills 2, Maintenance, 03/10/20 9:11:00 EST, Route to Pharmacy Electronically, [facility], 160, cm, 03/10/20 8:33:00 EST, Height, 99.9, kg, 01/11/20 15:23:00 EDT, Dry Weight Start Date: 03/10/20 Stop Date: 06/08/20 Status: Orderedomeprazole 20 mg oral enteric coated capsule 1 capsule, By Mouth, 2 times a day, # 60 capsule, 2 Refills, Maintenance, 08/24/20 9:33:00 EDT, [facility] 222[facility], 160, cm, 06/04/20 0:50:00 EST, Height, 100, kg, 06/04/20 0:50:00 EST, Dry Weight Start Date: 08/24/20 Status: Orderedondansetron 4 mg oral tablet, disintegrating 1 tablet = 4 mg, By Mouth, 3 times a day, # 21 tablet, 1 Refills, Maintenance, 03/20/20 13:04:00 EST, [facility], Partial fill upon patient [...] MESH VENTRALIGHT ECHO CIR 6 - BARD ([id number]) 1 Bard Unknown KEYLA: {01}[id number] Assigning Authority: FDA
--- OUTSIDE RECORDS SUMMARY | 2022-03-11 02:08 | XMS_ITS | Continuity of Care Document ---
:1980 Author Organization [facility] Address [address] [place] [address]- Care Team Providers Name Role Phone Paulina CARSON, Thu Primary Care Physician [place] [facility] Date(s): 09/03/21 - 01/01/22 [facility] [address] [place] [address]- Attending Physician: Not on Staff, Attending MD Allergies, Adverse Reactions, Alerts Substance Reaction Severity Status codeine Atypical migraine Active erythromycin Oxycodone Active Azithromycin allergy N&V - Nausea and vomiting azithromycin Nausea and vomiting Active acetaminophen-oxycodone Active Vicodin Hives/Rash Active Reglan agitation (has [...] 23-valent vaccine 03/06/16 Given 1Result Comment: FLU [facility] 04360-375-95 Medications albuterol 0.083% inhalation solution 3 mL [...] 10/29/2113:13:00 EDT, Aerosol, Route to Pharmacy Electronically, [id number], [facility]/pharmacy #[id number], 161, cm, 10/29/20 12:39:00 EDT, [...] a day, # 12 each, 5 Refills, [facility] 99171, 161, cm, 10/14/21 8:43:00EDT, Height, 99.8, kg, [...] 0 Refills, Maintenance, 05/10/21 13:30:00 EST, Suppository, [facility]/pharmacy #[id number], Partial fill upon patient request [...] Refills, Soft Stop, 03/10/20 9:11:00 EST, Tablet, [facility], 160, cm, 03/10/20 8:33:00 EST, Height, 99.9, kg, 1... Start Date: 03/10/20 Stop Date: 09/06/20 Status: Orderedlidocaine 5% topical film 1 patch, Topically, Daily, remove patches after 12 hours, # 30 patch, 0 Refills, Maintenance, 10/23/20 23:42:00 EDT, [facility]/pharmacy #[id number], Partial fill upon patient request if the prescription is for a schedule II opioid drug., 1 patch Topically Daily,x... Start Date: 10/23/20 Stop Date: 11/22/20 Status: OrderedmetFORMIN 500 mg oral tablet 1 tablet, By Mouth, 2 times a day, # 60 tablet, 5 Refills, [facility], 161, cm, 10/29/20 12:39:00 EDT, Height, 99.8, kg, 10/23/20 22:45:00 EDT, Dry Weight Start Date: 05/07/21 Status: OrderedMetoprolol Succinate ER 25 mg oral tablet, extended release 1 tablet, By Mouth, Daily, # 30 tablet, 2 Refills, [facility], 161, cm, 10/29/20 12:39:00 EDT, Height, 99.8, kg, 10/23/20 22:45:00 EDT, Dry Weight Start Date: 04/30/21 Status: Orderednaproxen 500 mg oral tablet 1 tablet = 500 mg, By Mouth, 2 times a day, # 60 tablet, 0 Refills, Maintenance, 10/14/21 8:27:00 EDT, Tablet, [facility]/pharmacy #[id number], Partial fill upon patient request if the prescription is for a schedule II opioid drug., 161, cm, 10/14/21 8:07:00 EDT,... Start Date: 10/14/21 Stop Date: 11/13/21 Status: Orderedomeprazole 20 mg oral enteric coated capsule 1 capsule, By Mouth, 2 times a day, # 60 capsule, 2 Refills, Maintenance, 11/17/21 6:15:00 EDT, [facility]/pharmacy #[id number], 161, cm, 10/14/21 8:43:00 EDT, Height, 99.8, kg, 10/23/20 22:45:00 EDT, Dry Weight Start Date: 11/17/21 Status: Orderedondansetron 4 mg oral tablet, disintegrating 1 tablet = 4 mg, By Mouth, 3 times a day, # 21 tablet, 1 Refills, Maintenance, 03/20/20 13:04:00 EST, [facility], Partial fill upon patient request [...] problem - with severe Active depression/anxiety(Confirmed) Smoker. [employer] has worked in the past Active x [...] Date Identification Safety Status Authority Number Code [id number] Unknown Unknown Unknown 02/04/21 Unknown Unknown Active GS1 731 Care Team PersonnelName: Thu Gallardo NP Address: [address] [place] [address], [address] [place], [place] [address]
--- OUTSIDE RECORDS SUMMARY | 2022-03-11 02:09 | XMS_ITS | Continuity of Care Document ---
:1980 Author Organization [facility] Address [address] [place] [address]- Care Team Providers Name Role Phone Thu Gallardo NP Primary Care Physician Encounter [facility] Date(s): 05/23/19 - 05/30/19 [facility] [address] [place] [address] [facility] Encounter Diagnosis Sore throat (Discharge Diagnosis) - 05/23/19 Allergic rhinitis (Discharge Diagnosis) - 05/23/19 Attending Physician: Roger Begum NP Allergies, Adverse [...] Comment: FLU [facility] 35662-557-39 Medications 0.2 % nifedipine hydrophylic ointment 0.2 [...] 02/06/18 16:34:28 EDT, Route to Pharmacy Electronically, [id number], [facility]/pharmacy #[id number] Start Date: 02/06/18 Stop Date: 04/07/18 [...] Acute 06/06/19 9:39:00 EST, 05/23/19 9:39:00 EST, [place], [facility]/pharmacy #[id number], 2 sprays Nares, Both 3 times a day,x14 days,Instr:in each nostril, 160, cm, 05/23/19 9... Start Date: 05/23/19 Stop Date: 06/06/19 Status: Orderedmetoprolol 25 mg oral tablet, extended release 25 mg, 1, tablet, By Mouth, Daily, # 30 tablet, Refills 2, Tot. Refills 2, Maintenance, 05/30/19 9:24:00 EST, Route to Pharmacy Electronically, [facility]/pharmacy #207, 160, cm, 04/26/19 9:37:00 EST, Height, [...] 5 Refills, Maintenance, 05/06/19 16:14:00 EST, Tablet, [facility]/pharmacy #[id number], 160, cm, 04/26/19 9:37:00 EST, Height, [...] Dates Health Status Clinical In formant Service Sore throat Discharge 05/23/19 Diagnosis Allergic Discharge 05/23/19 rhinitis Diagnosis Vital Signs Most recent to oldest [Reference Range]: 1 2 Height 160 cm 160 cm (05/23/19 9:36 AM) (05/23/19 8:57 AM) Weight 101.8 kg (05/23/19 8:57 AM) Oxygen Saturation [94-100 %] 96 % (05/23/19 8:57 AM) Pulse Rate [55-90 bpm] 67 bpm (05/23/19 8:57 AM) Body Mass Index [18.5-24.99] 39.77 *>HHI* (05/23/19 8:57 AM) Blood Pressure [90-138/55-84 mm Hg] 132/90 mm Hg 140/ 90 mm Hg (05/23/19 9:36 AM) *H* (05/23/19 8:57 AM) Respiratory Rate [16-30 br/min] 16 br/min (05/23/19 8:57 AM) Temperature [96.8-100.4 DegF] 98.2 DegF (05/23/19 8:57 AM) Mode of Delivery (Oxygen) Room air (05/23/19 8:57 AM) Blood pressure sites Arm, left Arm, left (05/23/19 9:36 AM) (05/23/19 8:57 AM) Temperature Route Oral (05/23/19 8:57 AM) Weight Obtained Via Standing scale (05/23/19 8:57 AM) Social History Social History Type Response Smoking Status Current every day smoker; To bacco user in household: Yes entered on: 06/24/16 Sex
--- OUTSIDE RECORDS SUMMARY | 2022-03-11 02:09 | XMS_ITS | Continuity of Care Document ---
:1980 Author Organization [facility] Address [address] [place] [address]- Care Team Providers Name Role Phone Paulina CARSON, Thu Primary Care Physician [place] [facility] [place] Date(s): 04/26/19 - 05/03/19 [facility] [address] [place] [address]- [facility] Encounter Diagnosis Viral URI with cough (Discharge Diagnosis) - 04/26/19 Attending Physician: Rand Pal MD Allergies, Adverse [...] 02/06/18 16:34:28 EDT, Route to Pharmacy Electronically, [id number], [facility]/pharmacy #[id number] Start Date: 02/06/18 Stop Date: 04/07/18 [...] Acute 05/10/19 10:11:00 EST, 04/26/19 10:11:00 EST, [place], [facility]/pharmacy #[id number], 1 sprays Nares, Both 2 times [...] Acute 05/10/19 10:12:00EST, 04/26/19 10:12:00 EST, Tablet, [facility]/pharmacy #[id number], 1 tablet By Mouth Daily in PM,x14 days, 160,cm, 04/26/19 9:37:00 EST, Height, 98, kg, ... Start Date: 04/26/19 Stop Date: 05/10/19 Status: Orderedmetoprolol 25 mg oral tablet, extended release 25 mg, 1, tablet, By Mouth, Daily, # 30 tablet, Refills 2, Tot. Refills 2, Maintenance, 05/30/19 9:24:00 EST, Route to Pharmacy Electronically, [facility]/pharmacy #207, 160, cm, 04/26/19 9:37:00 EST, Height, 98, kg, 04/11/18 16:26:00 EST, Dry Weight Start Date: 05/30/19 Stop Date: 08/28/19 Status: Orderedmetoprolol 25 mg oral tablet, extended release 25 mg, 1, tablet, By Mouth, Daily, for 30 days, # 30 tablet, Refills 2, Tot. Refills 2, Hard Stop 05/30/19 9:24:08 EST, 03/01/19 9:24:08 EST, Route to Pharmacy Electronically, [facility]/pharmacy #207 Start Date: 03/01/19 Stop Date: 05/30/19 [...] capsule, 2 Refills, Maintenance, 04/26/19 12:17:00 EST, [facility]/pharmacy #[id number], 160, cm, 04/26/19 9:37:00 EST, Height, [...] Dates Health Status Clinical In formant Service Viral URI with Discharge 04/26/19 cough Diagnosis Vital Signs Most recent to oldest [Reference Range]: 1 Height 160 cm (04/26/19 9:37 AM) Weight 99.4 kg (04/26/19 9:37 AM) Oxygen Saturation [94-100 %] 98 % (04/26/19 9:37 AM) Pulse Rate [55-90 bpm] 86 bpm (04/26/19 9:37 AM) Body Mass Index [18.5-24.99] 38.83 *>HHI* (04/26/19 9:37 AM) Blood Pressure [90-138/55-84 mm Hg] 120/80 mm Hg (04/26/19 9:37 AM) Respiratory Rate [16-30 br/min] 16 br/min (04/26/19 9:37 AM) Temperature [96.8-100.4 DegF] 98.3 DegF (04/26/19 9:37 AM) Mode of Delivery (Oxygen) Room air (04/26/19 9:37 AM) Blood pressure sites Arm, right (04/26/19 9:37 AM) Temperature Route Oral (04/26/19 9:37 AM) Weight Obtained Via Standing scale (04/26/19 9:37 AM) Social History Social History Type Response Smoking Status Current every day smoker; To bacco user in household: Yes entered on: 06/24/16 Sex
--- OUTSIDE RECORDS SUMMARY | 2022-03-11 02:09 | XMS_ITS | Continuity of Care Document ---
:1980 Author Organization [facility] Address [address] [place] [address]- Care Team Providers Name Role Phone Paulina CARSON, Thu Primary Care Physician Encounter [facility] Date(s): 08/30/19 - 12/28/19 [facility] [address] [place] [address]- [facility] Attending Physician: Not on Staff, Attending MD [...] tetanus/diphtheria/pertussis, acel(Tdap) 03/19/12 Given 1Result Comment: FLU [facility] 31748-193-08 Medications 0.2 % nifedipine hydrophylic ointment 0.2 [...] 02/06/18 16:34:28 EDT, Route to Pharmacy Electronically, [id number], [facility]/pharmacy #[id number] Start Date: 02/06/18 Stop [...] Refills, Soft Stop, 08/20/19 13:35:00 EDT, Tablet, [facility],160, cm, 08/20/19 10:25:00 EDT, Height, 98.5, kg,... Start Date: 08/20/19 Stop Date: 02/16/20 Status: Orderedmetoprolol 25 mg oral tablet, extended release 25 mg, 1, tablet, By Mouth, Daily, # 30 tablet, Refills 2, Tot. Refills 2, Maintenance, 08/20/19 13:34:00 EDT, Route to Pharmacy Electronically, [facility], 160, cm, 08/20/19 10:25:00 EDT, Height, 98.5, kg, 07/03/19 21:15:00 EDT, Dry Weight Start Date: 08/20/19 Stop Date: 11/18/19 Status: OrderedNuLYTELY with Flavor Packs oral powder for reconstitution See Instructions, 240 mL By Mouth Every 15 minutes, # 4,000 mL, 0 Refills, Maintenance, 11/01/19 11:26:00 EDT, [facility]/pharmacy #[id number], 240 mL By Mouth Every 15 minutes, 160, cm, 11/01/19 10:13:00 EDT, Height, 98.5, kg, 07/03/19 21:15:00 EDT, Dry Weight Start Date: 11/01/19 Status: Orderedomeprazole 20 mg oral enteric coated capsule 1 capsule = 20 mg, By Mouth, 2 times a day, # 60 capsule, 2 Refills, Maintenance, 10/28/19 14:45:00 EDT, [facility]/pharmacy #[id number], 160, cm, 08/20/19 10:25:00 EDT, Height, 98.5, kg, 07/03/19 21:15:00 EDT, DryWeight Start Date: 10/28/19 Stop Date: 01/26/20 Status: Orderedondansetron 4 mg oral disintegrating strip 1 each = 4 mg, By Mouth, 3 times a day, PRN Nausea & Vomiting, subligual, # 21 capsule, 0 Refills, Maintenance, 10/28/19 14:46:00 EDT, [facility]/pharmacy #[id number], 160, cm, 08/20/19 10:25:00 EDT, Height, [...] 5 Refills, Maintenance, 11/22/19 11:33:00 EDT, Tablet, [facility], 160, cm, 11/01/19 10:13:00 [...] MESH VENTRALIGHT ECHO CIR 6 - BARD ([id number]) 1 Bard Unknown KEYLA: {01}[id number] Assigning Authority: FDA
--- OUTSIDE RECORDS SUMMARY | 2022-03-11 02:09 | XMS_ITS | Continuity of Care Document ---
:1980 Demographics Address [address] [place] [address] Preferred Language so Marital Status Single Bahai Affiliation None Race Unknown Ethnic Group Not or Author Organization [facility] Address [address] [place] [address]- Care Team Providers Name Role Phone Thu Gallardo NP Primary Care Physician Encounter [facility] [place] Date(s): 10/28/19 - 11/27/19 [facility] [address] [place] [address]- [facility] Attending Physician: Olga Horton Allergies, Adverse Reactions, Alerts Substance Reaction Severity [...] 1Result Comment: FLU [facility] [id number] Medications 0.2 % nifedipine hydrophylic ointment 0.2 [...] 02/06/18 16:34:28 EDT, Route to Pharmacy Electronically, [id number], [facility]/pharmacy #[id number] Start Date: 02/06/18 [...] Refills, Soft Stop, 08/20/19 13:35:00 EDT, Tablet, [facility],160, cm, 08/20/19 10:25:00 EDT, Height, 98.5, kg,... Start Date: 08/20/19 Stop Date: 02/16/20 Status: Orderedmetoprolol 25 mg oral tablet, extended release 25 mg, 1, tablet, By Mouth, Daily, # 30 tablet, Refills 2, Tot. Refills 2, Maintenance, 08/20/19 13:34:00 EDT, Route to Pharmacy Electronically, [facility], 160, cm, 08/20/19 10:25:00 EDT, Height, 98.5, kg, 07/03/19 21:15:00 EDT, Dry Weight Start Date: 08/20/19 Stop Date: 11/18/19 Status: OrderedNuLYTELY with Flavor Packs oral powder for reconstitution See Instructions, 240 mL By Mouth Every 15 minutes, # 4,000 mL, 0 Refills, Maintenance, 11/01/19 11:26:00 EDT, [facility]/pharmacy #[id number], 240 mL By Mouth Every 15 minutes, 160, cm, 11/01/19 10:13:00 EDT, Height, 98.5, kg, 07/03/19 21:15:00 EDT, Dry Weight Start Date: 11/01/19 Status: Orderedomeprazole 20 mg oral enteric coated capsule 1 capsule = 20 mg, By Mouth, 2 times a day, # 60 capsule, 2 Refills, Maintenance, 10/28/19 14:45:00 EDT, [facility]/pharmacy #[id number], 160, cm, 08/20/19 10:25:00 EDT, Height, 98.5, kg, 07/03/19 21:15:00 EDT, DryWeight Start Date: 10/28/19 Stop Date: 01/26/20 Status: Orderedondansetron 4 mg oral disintegrating strip 1 each = 4 mg, By Mouth, 3 times a day, PRN Nausea & Vomiting, subligual, # 21 capsule, 0 Refills, Maintenance, 10/28/19 14:46:00 EDT, [facility]/pharmacy #[id number], 160, cm, 08/20/19 [...] 5 Refills, Maintenance, 11/22/19 11:33:00 EDT, Tablet, [facility], 160, cm, 11/01/19 10:13:00 [...] problem - with severe Active depression/anxiety(Confirmed) Smoker. [employer] has worked in the past Active x [...] MESH VENTRALIGHT ECHO CIR 6 - BARD ([id number]) 1 Bard Unknown KEYLA: {01}[id number] Assigning Authority: FDA
--- OUTSIDE RECORDS SUMMARY | 2022-03-11 02:09 | XMS_ITS | Continuity of Care Document ---
:1980 Author Organization [facility] Address [address] [place] [address]- Care Team Providers Name Role Phone Paulina CARSON, Thu Primary Care Physician [place] [facility] [place] 10/01/[address] [address]- Discharge Disposition: A-D/C Home Attending Physician: Rob Merino MD Admitting Physician: Rob Merino MD Referring Physician: Not on Staff, Referring MD Allergies, Adverse Reactions, Alerts Substance Reaction Severity Status erythromycin Oxycodone Active Azithromycin allergy azithromycin Active acetaminophen-oxycodone Active Results Radiology Reports Exam Date Time Procedure Performing Provider Status 10/01/21 7:24 PM Chest Portable Ayaan Gutiérrez; Lakhwinder (Verifie d) Notes:(Chest Portable) Reason For Exam: Pain;Other:RESULT: Chest Portable Chest Portable Reason: Other:; Pain; Clinical Question(s): Other:; Fracture, pneumothorax, pulmonary contusion COMPARISON: None. FINDINGS: LINES AND TUBES: None. LUNGS AND PLEURA: Low lung volumes with mild basilar atelectasis. Lungs are otherwise clear with no consolidation. No pleural effusion. No pneumothorax. HEART, MEDIASTINUM AND ASTER: Heart is normal in size. Normal upper mediastinal and hilar contour. BONES AND SOFT TISSUES: No acute abnormality. IMPRESSION: No acute abnormality. WSN: [id number] Ordering Physician: Tyler Reilly Dictated By: Bebo Corea MD Dictated Date/Time: 10/01/21 7:38 pm Reviewed By: Bebo Corea MD Signed By: Bebo Corea MD Signed Date/Time: 10/01/21 7:38 pm Transcribed By: JUSTO Transcribed Date/Time: 10/01/21 7:38 pm Vital Signs Most recent to oldest [Reference Range]: 1 Oxygen Saturation [94-100 %] 100 % (10/01/21 8:46 PM) Pulse Rate [55-90 bpm] 87 bpm (10/01/21 8:46 PM) Blood Pressure [90-138/55-84 mm Hg] 153/79 mm Hg *H* (10/01/21 8:46 PM) Respiratory Rate [16-30 br/min] 15 br/min *L* (10/01/21 8:46 PM) Temperature [96.8-100.4 DegF] 97.8 DegF (10/01/21 8:46 PM) Mode of Delivery (Oxygen) Room air (10/01/21 8:46 PM) Temperature Route Oral (10/01/21 8:46 PM)
--- OUTSIDE RECORDS SUMMARY | 2022-03-11 02:09 | XMS_ITS | Continuity of Care Document ---
:1980 Author Organization [facility] Address [address] [place] [address]- Care Team Providers Name Role Phone Paulian CARSON, Thu Primary Care Physician [place] [facility] [place] 11/01/19 - 01/11/[address] [address]- [facility] Attending Physician: Christiano Cross MD Admitting Physician: Christiano Cross MD Allergies, Adverse Reactions, Alerts Substance Reaction [...] tetanus/diphtheria/pertussis, acel(Tdap) 03/19/12 Given 1Result Comment: FLU [facility] 63116-240-69 Medications 0.2 % nifedipine hydrophylic ointment 0.2 [...] 02/06/18 16:34:28 EDT, Route to Pharmacy Electronically, [id number], [facility]/pharmacy #[id number] Start [...] Refills, Soft Stop, 08/20/19 13:35:00 EDT, Tablet, [facility] 3,160, cm, 08/20/19 10:25:00 EDT, Height, 98.5, kg,... Start Date: 08/20/19 Stop Date: 02/16/20 Status: Orderedmetoprolol 25 mg oral tablet, extended release 25 mg, 1, tablet, By Mouth, Daily, # 30 tablet, Refills 2, Tot. Refills 2, Maintenance, 08/20/19 13:34:00 EDT, Route to Pharmacy Electronically, [facility] 3, 160, cm, 08/20/19 10:25:00 EDT, Height, 98.5, kg, 07/03/19 21:15:00 EDT, Dry Weight Start Date: 08/20/19 Stop Date: 11/18/19 Status: OrderedNuLYTELY with Flavor Packs oral powder for reconstitution See Instructions, 240 mL By Mouth Every 15 minutes, # 4,000 mL, 0 Refills, Maintenance, 11/01/19 11:26:00 EDT, [facility]/pharmacy #[id number], 240 mL By Mouth Every 15 minutes, 160, cm, 11/01/19 10:13:00 EDT, Height, 98.5, kg, 07/03/19 21:15:00 EDT, Dry Weight Start Date: 11/01/19 Status: Orderedofloxacin 0.3% ophthalmic solution 2 drops, Eye, Left, 4 times a day, for 7 days, # 10 mL, 0 Refills, Acute 01/18/20 16:02:00 EDT, 01/11/20 16:02:00 EDT, [facility]/pharmacy #[id number], 2 drops Eye, Left 4 times a day,x7 days, 160, cm, 01/11/20 15:23:00 EDT, Height, 99.9, kg, 01/11/20 15:23:00 EDT... Start Date: 01/11/20 Stop Date: 01/18/20 Status: Orderedomeprazole 20 mg oral enteric coated capsule 1 capsule = 20 mg, By Mouth, 2 times a day, # 60 capsule, 2 Refills, Maintenance, 10/28/19 14:45:00 EDT, [facility]/pharmacy #[id number], 160, cm, 08/20/19 10:25:00 EDT, Height, 98.5, kg, 07/03/19 21:15:00 EDT, DryWeight Start Date: 10/28/19 Stop Date: 01/26/20 Status: Orderedondansetron 4 mg oral disintegrating strip 1 each = 4 mg, By Mouth, 3 times a day, PRN Nausea & Vomiting, subligual, # 21 capsule, 0 Refills, Maintenance, 10/28/19 14:46:00 EDT, [facility]/pharmacy #[id number], 160, cm, 08/20/19 10:25:00 EDT, [...] 5 Refills, Maintenance, 11/22/19 11:33:00 EDT, Tablet, [facility], 160, cm, 11/01/19 10:13:00 EDT, Height, 98.5, kg, 07/03/19 21:15:00 EDT,Dry Weight Start Date: 11/22/19 Status: Ordered Problem List Condition Effective Dates Status Health Status Informant Acid reflux(Confirmed) 2003 Active Anxiety(Confirmed) Active Asthma(Confirmed) 2005 Active Attention deficit hyperactivity Active disorder(Confirmed) Benign [...] MESH VENTRALIGHT ECHO CIR 6 - BARD ([id number]) 1 Bard Unknown KEYLA: {01}[id number] Assigning Authority: FDA
--- OUTSIDE RECORDS SUMMARY | 2022-03-11 02:09 | XMS_ITS | Continuity of Care Document ---
:1980 Author Organization [facility] Address [address] [place] [address]- Care Team Providers Name Role Phone Paulina CARSON, Thu Primary Care Physician Encounter [facility] Date(s): 11/01/19 - 12/01/19 [facility] [address] [place] [address]- [facility] Allergies, Adverse Reactions, Alerts Substance Reaction Severity Status codeine Atypical migraine Active Vicodin Hives/Rash Active Percocet 5/325 Hives/Rash Active erythromycin N&V - Nausea and vomiting Active azithromycin Nausea and vomiting Active Reglan agitation (has ripped her IVs out) Active increased anxiety Immunizations Given and Recorded Vaccine Date Status Refusal Reason influenza virus vaccine, inactivated1 05/23/19 Given influenza virus vaccine, inactivated 01/27/16 Given influenza virus vaccine, inactivated 05/05/15 Given influenza virus vaccine, inactivated 04/23/13 Given pneumococcal 23-valent vaccine 03/06/16 Given tetanus/diphtheria/pertussis, acel(Tdap) 03/19/12 Given 1Result Comment: FLU [facility] 97857-341-01 Medications 0.2 % nifedipine hydrophylic ointment 0.2 [...] 02/06/18 16:34:28 EDT, Route to Pharmacy Electronically, [id number], [facility]/pharmacy #[id number] Start Date: 02/06/18 Stop [...] Refills, Soft Stop, 08/20/19 13:35:00 EDT, Tablet, [facility],160, cm, 08/20/19 10:25:00 EDT, Height, 98.5, kg,... Start Date: 08/20/19 Stop Date: 02/16/20 Status: Orderedmetoprolol 25 mg oral tablet, extended release 25 mg, 1, tablet, By Mouth, Daily, # 30 tablet, Refills 2, Tot. Refills 2, Maintenance, 08/20/19 13:34:00 EDT, Route to Pharmacy Electronically, [facility], 160, cm, 08/20/19 10:25:00 EDT, Height, 98.5, kg, 07/03/19 21:15:00 EDT, Dry Weight Start Date: 08/20/19 Stop Date: 11/18/19 Status: OrderedNuLYTELY with Flavor Packs oral powder for reconstitution See Instructions, 240 mL By Mouth Every 15 minutes, # 4,000 mL, 0 Refills, Maintenance, 11/01/19 11:26:00 EDT, [facility]/pharmacy #[id number], 240 mL By Mouth Every 15 minutes, 160, cm, 11/01/19 10:13:00 EDT, Height, 98.5, kg, 07/03/19 21:15:00 EDT, Dry Weight Start Date: 11/01/19 Status: Orderedomeprazole 20 mg oral enteric coated capsule 1 capsule = 20 mg, By Mouth, 2 times a day, # 60 capsule, 2 Refills, Maintenance, 10/28/19 14:45:00 EDT, [facility]/pharmacy #[id number], 160, cm, 08/20/19 10:25:00 EDT, Height, 98.5, kg, 07/03/19 21:15:00 EDT, DryWeight Start Date: 10/28/19 Stop Date: 01/26/20 Status: Orderedondansetron 4 mg oral disintegrating strip 1 each = 4 mg, By Mouth, 3 times a day, PRN Nausea & Vomiting, subligual, # 21 capsule, 0 Refills, Maintenance, 10/28/19 14:46:00 EDT, [facility]/pharmacy #[id number], 160, cm, 08/20/19 10:25:00 EDT, [...] 5 Refills, Maintenance, 11/22/19 11:33:00 EDT, Tablet, [facility], 160, cm, 11/01/19 [...] MESH VENTRALIGHT ECHO CIR 6 - BARD ([id number]) 1 Bard Unknown KEYLA: {01}[id number] Assigning Authority: FDA
--- OUTSIDE RECORDS SUMMARY | 2022-03-11 02:09 | XMS_ITS | Continuity of Care Document ---
:1980 Author Organization [address] [place] [address]- Care Team Providers Name Role Phone Paulina CARSON, Thu Primary Care Physician Encounter [facility] Date(s): 05/04/20 - 06/03/[address] [place] [id number] Attending Physician: AdmOlga wong Admitting Physician: Admtr, [id number] Referring Physician: Admtr, [id number] Allergies, Adverse Reactions, [...] Given 1Result Comment: FLU [facility] 82313-231-74 Medications albuterol 0.083% inhalation solution 3 mL [...] Refills, Soft Stop, 03/10/20 9:11:00 EST, Tablet, [facility], 160, cm, 03/10/20 8:33:00 EST, Height, 99.9, kg, 1... Start Date: 03/10/20 Stop Date: 09/06/20 Status: Orderedmetoprolol 25 mg oral tablet, extended release 25 mg, 1, tablet, By Mouth, Daily, # 30 tablet, Refills 2, Tot. Refills 2, Maintenance, 03/10/20 9:11:00 EST, Route to Pharmacy Electronically, [facility], 160, cm, 03/10/20 8:33:00 EST, Height, 99.9, kg, 01/11/20 15:23:00 EDT, Dry Weight Start Date: 03/10/20 Stop Date: 06/08/20 Status: Orderedomeprazole 20 mg oral enteric coated capsule 1 capsule = 20 mg, By Mouth, 2 times a day, # 60 capsule, 2 Refills, Maintenance, 03/10/20 9:11:00 EST, [facility], 160, cm, 03/10/20 8:33:00 EST, Height, 99.9, kg, 01/11/20 15:23:00 EDT,Dry Weight Start Date: 03/10/20 Stop Date: 06/08/20 Status: Orderedondansetron 4 mg oral tablet, disintegrating 1 tablet = 4 mg, By Mouth, 3 times a day, # 21 tablet, 1 Refills, Maintenance, 03/20/20 13:04:00 EST, [facility], Partial fill upon patient request if the prescription is for a schedule II opioid drug., 160, cm, 03/10/20 8:33:00 EST, [facility]... Start Date: 03/20/20 Status: OrderedQUEtiapine 25 mg [...] problem - with severe Active depression/anxiety(Confirmed) Smoker. [employer] has worked in the past Active x [...] MESH VENTRALIGHT ECHO CIR 6 - BARD ([id number]) 1 Bard Unknown KEYLA: {01}[id number] Assigning Authority: FDA
--- OUTSIDE RECORDS SUMMARY | 2022-03-11 02:09 | XMS_ITS | Continuity of Care Document ---
:1980 Author Organization [facility] Address [address] [place] [address]- Care Team Providers Name Role Phone Paulina CARSON, Thu Primary Care Physician [place] [facility] [place](s): 12/28/20 - 01/27/[address] [address]- Attending Physician: Olga Horton Admitting Physician: AdmtrOlga Referring Physician: AdmtrOlga Allergies, Adverse Reactions, Alerts Substance Reaction Severity Status codeine Atypical migraine Active erythromycin N&V - Nausea and vomiting Active Vicodin Hives/Rash Active Reglan agitation (has ripped her IVs out) Active increased anxiety Percocet Hives/Rash Active azithromycin Nausea and vomiting Active Immunizations Given and Recorded Vaccine Date Status Refusal Reason SARS-CoV-2 (COVID-19) Ad26 vaccine 08/14/20 Recorded influenza virus vaccine, inactivated1 05/23/19 Given influenza virus vaccine, inactivated 01/27/16 Given influenza virus vaccine, inactivated 05/05/15 Given influenza virus vaccine, inactivated 04/23/13 Given pneumococcal 23-valent vaccine 03/06/16 Given tetanus/diphtheria/pertussis, acel(Tdap) 03/19/12 Given 1Result Comment: FLU [facility] 75582-330-31 Medications albuterol 0.083% inhalation solution 3 mL [...] 10/29/2113:13:00 EDT, Aerosol, Route to Pharmacy Electronically, [id number], [facility]/pharmacy #[id number], 161, cm, 10/29/20 12:39:00 EDT, [...] 5 Refills, Maintenance, 10/29/20 14:13:00 EDT, Aerosol, [facility]/pharmacy #[id number], Partial fill upon patient request [...] Refills, Soft Stop, 03/10/20 9:11:00 EST, Tablet, [facility] 3, 160, cm, 03/10/20 8:33:00 EST, Height, 99.9, kg, 1... Start Date: 03/10/20 Stop Date: 09/06/20 Status: Orderedlidocaine 5% topical film 1 patch, Topically, Daily, remove patches after 12 hours, # 30 patch, 0 Refills, Maintenance, 10/23/20 23:42:00 EDT, [facility]/pharmacy #[id number], Partial fill upon patient request if the prescription is for a schedule II opioid drug., 1 patch Topically Daily,x... Start Date: 10/23/20 Stop Date: 11/22/20 Status: OrderedmetFORMIN 500 mg oral tablet 1 tablet = 500 mg, By Mouth, 2 times a day, # 60 tablet, 5 Refills, Maintenance, 08/17/20 9:43:00 EDT, Tablet, [facility]/pharmacy #[id number], Partial fill upon patient request if the prescription is for a schedule II opioid drug., 160, cm, 06/04/20 0:50:00 EST,... Start Date: 08/17/20 Stop Date: 02/13/21 Status: Orderedmetoprolol 25 mg oral tablet, extended release 25 mg, 1, tablet, By Mouth, Daily, # 30 tablet, Refills 2, Tot. Refills 2, Maintenance, 10/29/20 14:10:00 EDT, Route to Pharmacy Electronically, [facility]/pharmacy #[id number], 161, cm, 10/29/20 12:39:00 EDT, Height, 99.8, kg, 10/23/20 22:45:00 EDT, Dry Weight Start Date: 10/29/20 Stop Date: 01/27/21 Status: Orderedomeprazole 20 mg oral enteric coated capsule 1 capsule, By Mouth, 2 times a day, # 60 capsule, 2 Refills, [facility] STORE 28507, 161, cm, 10/29/20 12:39:00 EDT, Height, 99.8, kg, 10/23/20 22:45:00 EDT, Dry Weight Start Date: 12/31/20 Status: Orderedondansetron 4 mg oral tablet, disintegrating 1 tablet = 4 mg, By Mouth, 3 times a day, # 21 tablet, 1 Refills, Maintenance, 03/20/20 13:04:00 EST, [facility], Partial fill upon patient request [...] MESH VENTRALIGHT ECHO CIR 6 - BARD ([id number]) 1 Bard Unknown KEYLA: {01}[id number] Assigning Authority: FDA
--- OUTSIDE RECORDS SUMMARY | 2022-03-11 02:09 | XMS_ITS | Continuity of Care Document ---
:1980 Author Organization [facility] Address [address] [place] [address]- Care Team Providers Name Role Phone Paulina CARSON, Thu Primary Care Physician Encounter [facility] [place] Date(s): 01/11/20 - 02/10/20 [facility] [address] [place] [address]- [facility] Attending Physician: Olga Horton Admitting Physician: AdmOlga wong Referring Physician: AdmtrOlga Allergies, Adverse Reactions, Alerts Substance Reaction Severity Status codeine Atypical migraine Active azithromycin Nausea and vomiting Active Vicodin [...] 1Result Comment: FLU [facility] 57184-409-81 Medications 0.2 % nifedipine hydrophylic ointment 0.2 [...] 02/06/18 16:34:28 EDT, Route to Pharmacy Electronically, [id number], [facility]/pharmacy #[id number] Start Date: 02/06/18 Stop Date: [...] Refills, Soft Stop, 08/20/19 13:35:00 EDT, Tablet, [facility] 3,160, cm, 08/20/19 10:25:00 EDT, Height, 98.5, kg,... Start Date: 08/20/19 Stop Date: 02/16/20 Status: Orderedmetoprolol 25 mg oral tablet, extended release 25 mg, 1, tablet, By Mouth, Daily, # 30 tablet, Refills 2, Tot. Refills 2, Maintenance, 08/20/19 13:34:00 EDT, Route to Pharmacy Electronically, [facility] 3, 160, cm, 08/20/19 10:25:00 EDT, Height, 98.5, kg, 07/03/19 21:15:00 EDT, Dry Weight Start Date: 08/20/19 Stop Date: 11/18/19 Status: OrderedNuLYTELY with Flavor Packs oral powder for reconstitution See Instructions, 240 mL By Mouth Every 15 minutes, # 4,000 mL, 0 Refills, Maintenance, 11/01/19 11:26:00 EDT, [facility]/pharmacy #[id number], 240 mL By Mouth Every 15 minutes, 160, cm, 11/01/19 10:13:00 EDT, Height, 98.5, kg, 07/03/19 21:15:00 EDT, Dry Weight Start Date: 11/01/19 Status: Orderedomeprazole 20 mg oral enteric coated capsule 1 capsule = 20 mg, By Mouth, 2 times a day, # 60 capsule, 2 Refills, Maintenance, 10/28/19 14:45:00 EDT, [facility]/pharmacy #[id number], 160, cm, 08/20/19 10:25:00 EDT, Height, 98.5, kg, 07/03/19 21:15:00 EDT, DryWeight Start Date: 10/28/19 Stop Date: 01/26/20 Status: Orderedondansetron 4 mg oral disintegrating strip 1 each = 4 mg, By Mouth, 3 times a day, PRN Nausea & Vomiting, subligual, # 21 capsule, 0 Refills, Maintenance, 10/28/19 14:46:00 EDT, [facility]/pharmacy #[id number], 160, cm, 08/20/19 10:25:00 EDT, Height, [...] 5 Refills, Maintenance, 11/22/19 11:33:00 EDT, Tablet, [facility], 160, cm, 11/01/19 [...] MESH VENTRALIGHT ECHO CIR 6 - BARD ([id number]) 1 Bard Unknown KEYLA: {01}[id number] Assigning Authority: FDA
--- OUTSIDE RECORDS SUMMARY | 2022-03-11 02:09 | XMS_ITS | Continuity of Care Document ---
:1980 Author Organization [facility] Address [address] [place] [address]- Care Team Providers Name Role Phone Paulina CARSON, Thu Primary Care Physician Encounter [facility] [place] Date(s): 06/06/19 - 07/28/[address] [address] [facility] Attending Physician: Poncho Nascimento MD Admitting Physician: Poncho Nascimento MD Allergies, Adverse Reactions, Alerts Substance Reaction [...] Comment: FLU [facility] 17930-585-07 Medications 0.2 % nifedipine hydrophylic ointment 0.2 [...] 02/06/18 16:34:28 EDT, Route to Pharmacy Electronically, [id number], [facility]/pharmacy #[id number] Start Date: [...] 07/08/19 16:26:00 EDT, [facility]ically, [id number], 160, cm, 07/08/19 16:08:00 EDT, [...] to Pharmacy Electronically, [facility]/pharmacy #[id number], 160, cm, 04/26/19 9:37:00 EST, Height, [...] 04/26/19 12:17:00 EST, [facility]/pharmacy #[id number], 160, cm, 04/26/19 9:37:00 EST, Height, [...] 5 Refills, Maintenance, 05/06/19 16:14:00 EST, Tablet, [facility]/pharmacy #[id number], 160, cm, 04/26/19 9:37:00 EST, Height, [...] problem - with severe Active depression/anxiety(Confirmed) Smoker. [employer] has worked in the past Active x [...] MESH VENTRALIGHT ECHO CIR 6 - BARD ([id number]) 1 Bard Unknown KEYLA: {01}[id number] Assigning Authority: FDA
--- OUTSIDE RECORDS SUMMARY | 2022-03-11 02:09 | XMS_ITS | Continuity of Care Document ---
:1980 Author Organization [facility] Address [address] [place] [address]- Care Team Providers Name Role Phone Paulina CARSON, Thu Primary Care Physician Encounter [facility] [place] Date(s): 05/28/21 - 08/10/[address] [address] Attending Physician: Harjit Ramos Admitting Physician: Harjit Ramos Referring Physician: Harjit Ramos Allergies, Adverse Reactions, Alerts Substance Reaction Severity [...] 23-valent vaccine 03/06/16 Given 1Result Comment: FLU [facility] 97985-064-90 Medications albuterol 0.083% inhalation solution 3 mL [...] 10/29/2113:13:00 EDT, Aerosol, Route to Pharmacy Electronically, [id number], [facility]/pharmacy #[id number], 161, cm, 10/29/20 12:39:00 [...] a day, # 12 each, 4 Refills, [facility] STORE 23883, 161, cm, 10/29/20 12:39:00 EDT, Height, 99.8, [...] 0 Refills, Maintenance, 05/10/21 13:30:00 EST, Suppository, [facility]/pharmacy #[id number], Partial fill upon patient request if the [...] Refills, Soft Stop, 03/10/20 9:11:00 EST, Tablet, [facility], 160, cm, 03/10/20 8:33:00 EST, Height, 99.9, kg, 1... Start Date: 03/10/20 Stop Date: 09/06/20 Status: Orderedlidocaine 5% topical film 1 patch, Topically, Daily, remove patches after 12 hours, # 30 patch, 0 Refills, Maintenance, 10/23/20 23:42:00 EDT, [facility]/pharmacy #[id number], Partial fill upon patient request if the prescription is for a schedule II opioid drug., 1 patch Topically Daily,x... Start Date: 10/23/20 Stop Date: 11/22/20 Status: OrderedmetFORMIN 500 mg oral tablet 1 tablet, By Mouth, 2 times a day, # 60 tablet, 5 Refills, [facility], 161, cm, 10/29/20 12:39:00 EDT, Height, 99.8, kg, 10/23/20 22:45:00 EDT, Dry Weight Start Date: 05/07/21 Status: OrderedMetoprolol Succinate ER 25 mg oral tablet, extended release 1 tablet, By Mouth, Daily, # 30 tablet, 2 Refills, [facility], 161, cm, 10/29/20 12:39:00 EDT, Height, 99.8, kg, 10/23/20 22:45:00 EDT, Dry Weight Start Date: 04/30/21 Status: Orderedomeprazole 20 mg oral enteric coated capsule 1 capsule, By Mouth, 2 times a day, # 60 capsule, 2 Refills, [facility], 161, cm, 10/29/20 12:39:00 EDT, Height, 99.8, kg, 10/23/20 22:45:00 EDT, Dry Weight Start Date: 07/08/21 Status: Orderedondansetron 4 mg oral tablet, disintegrating 1 tablet = 4 mg, By Mouth, 3 times a day, # 21 tablet, 1 Refills, Maintenance, 03/20/20 13:04:00 EST, [facility], Partial fill upon patient request if the prescription is for a schedule II opioid drug., 160, cm, 03/10/20 8:33:00 EST, [facility]... Start Date: 03/20/20 Status: OrderedQUEtiapine 25 mg [...] MESH VENTRALIGHT ECHO CIR 6 - BARD ([id number]) 1 Bard Unknown KEYLA: {01}[id number] Assigning Authority: FDA
--- OUTSIDE RECORDS SUMMARY | 2022-03-11 02:09 | XMS_ITS | Continuity of Care Document ---
:1980 Author Organization [facility] Address [address] [place] [id number]- Care Team Providers Name Role Phone Paulina CARSON, Thu Primary Care Physician [place] [facility] [place] Date(s): 03/20/20 - 04/19/20 [facility] [address] [place] [id number]- Allergies, Adverse Reactions, Alerts Substance Reaction Severity [...] acel(Tdap) 03/19/12 Given 1Result Comment: FLU [facility] 55258-236-15 Medications 0.2 % nifedipine hydrophylic ointment 0.2 [...] 02/06/18 16:34:28 EDT, Route to Pharmacy Electronically, [id number], [facility]/pharmacy #[id number] Start Date: 02/06/18 Stop Date: 04/07/18 [...] Refills, Soft Stop, 03/10/20 9:11:00 EST, Tablet, [facility], 160, cm, 03/10/20 8:33:00 EST, Height, 99.9, kg, 1... Start Date: 03/10/20 Stop Date: 09/06/20 Status: Orderedmetoprolol 25 mg oral tablet, extended release 25 mg, 1, tablet, By Mouth, Daily, # 30 tablet, Refills 2, Tot. Refills 2, Maintenance, 03/10/20 9:11:00 EST, Route to Pharmacy Electronically, [facility], 160, cm, 03/10/20 8:33:00 EST, Height, 99.9, kg, 01/11/20 15:23:00 EDT, Dry Weight Start Date: 03/10/20 Stop Date: 06/08/20 Status: OrderedNuLYTELY with Flavor Packs oral powder for reconstitution See Instructions, 240 mL By Mouth Every 15 minutes, # 4,000 mL, 0 Refills, Maintenance, 11/01/19 11:26:00 EDT, [facility]/pharmacy #[id number], 240 mL By Mouth Every 15 minutes, 160, cm, 11/01/19 10:13:00 EDT, Height, 98.5, kg, 07/03/19 21:15:00 EDT, Dry Weight Start Date: 11/01/19 Status: Orderedomeprazole 20 mg oral enteric coated capsule 1 capsule = 20 mg, By Mouth, 2 times a day, # 60 capsule, 2 Refills, Maintenance, 03/10/20 9:11:00 EST, [facility], 160, cm, 03/10/20 8:33:00 EST, Height, 99.9, kg, 01/11/20 15:23:00 EDT,Dry Weight Start Date: 03/10/20 Stop Date: 06/08/20 Status: Orderedondansetron 4 mg oral tablet, disintegrating 1 tablet = 4 mg, By Mouth, 3 times a day, # 21 tablet, 1 Refills, Maintenance, 03/20/20 13:04:00 EST, [facility], Partial fill [...] 5 Refills, Maintenance, 11/22/19 11:33:00 EDT, Tablet, [facility], 160, cm, 11/01/19 [...] MESH VENTRALIGHT ECHO CIR 6 - BARD ([id number]) 1 Bard Unknown KEYLA: [id number] Assigning Authority: FDA
--- OUTSIDE RECORDS SUMMARY | 2022-03-11 02:09 | XMS_ITS | Continuity of Care Document ---
:1980 Author Organization [facility] Address [address] [place] [address] Drive [address] [place] [id number]- Care Team Providers Name Role Phone Thu Gallardo NP Primary Care Physician Encounter [facility] [place] Date(s): 05/17/19 - 07/11/[address] [place] [id number]- [facility] Attending Physician: Aileen Robin NP Referring Physician: [...] tetanus/diphtheria/pertussis, acel(Tdap) 03/19/12 Given 1Result Comment: FLU [facility] 61122-458-42 Medications 0.2 % nifedipine hydrophylic ointment 0.2 [...] 02/06/18 16:34:28 EDT, Route to Pharmacy Electronically, [id number], [facility]/pharmacy #[id number] Start Date: 02/06/18 Stop [...] 07/08/19 16:26:00 EDT, Route to Pharmacy Electronically, [facility]/pharmacy #[id number], 160, cm, 07/08/19 16:08:00 EDT, Height, 98.5, [...] 9:24:00 EST, Route to Pharmacy Electronically, [facility]/pharmacy #[id number], 160, cm, 04/26/19 9:37:00 EST, [...] 2 Refills, Maintenance, 04/26/19 12:17:00 EST, [facility]/pharmacy #[id number], 160, cm, 04/26/19 9:37:00 EST, [...] 5 Refills, Maintenance, 05/06/19 16:14:00 EST, Tablet, [facility]/pharmacy #[id number], 160, cm, 04/26/19 9:37:00 EST, [...] MESH VENTRALIGHT ECHO CIR 6 - BARD ([id number]) 1 Bard Unknown KEYLA: [id number] Assigning Authority: FDA
--- OUTSIDE RECORDS SUMMARY | 2022-03-11 02:09 | XMS_ITS | Continuity of Care Document ---
:1980 Author Organization [facility] Address Unavailable , Care Team Providers Name Role Phone Thu Gallardo NP Primary Care Physician Encounter [facility] [place] Date(s): 05/07/21 - 06/06/21 [facility] Attending Physician: AdmOlga wong Admitting Physician: AdmtrOlga Referring Physician: Admtr, [id number] [...] tetanus/diphtheria/pertussis, acel(Tdap) 03/19/12 Given 1Result Comment: FLU [facility] [id number] Medications albuterol 0.083% inhalation solution 3 mL [...] 10/29/2113:13:00 EDT, Aerosol, Route to Pharmacy Electronically, [id number], [facility]/pharmacy #[id number], 161, cm, 10/29/20 12:39:00 EDT, [...] 5 Refills, Maintenance, 10/29/20 14:13:00 EDT, Aerosol, [facility]/pharmacy #[id number], Partial fill upon patient request [...] 0 Refills, Maintenance, 05/10/21 13:30:00 EST, Suppository, [facility]/pharmacy #[id number], Partial fill upon patient request [...] 9:11:00 EST, Tablet, [facility], 160, cm, 03/10/20 8:33:00 EST, Height, 99.9, kg, 1... Start Date: 03/10/20 Stop Date: 09/06/20 Status: Orderedlidocaine 5% topical film 1 patch, Topically, Daily, remove patches after 12 hours, # 30 patch, 0 Refills, Maintenance, 10/23/20 23:42:00 EDT, [facility]/pharmacy #[id number], Partial fill upon patient request if the prescription is for a schedule II opioid drug., 1 patch Topically Daily,x... Start Date: 10/23/20 Stop Date: 11/22/20 Status: OrderedmetFORMIN 500 mg oral tablet 1 tablet, By Mouth, 2 times a day, # 60 tablet, 5 Refills, [id number], 161, cm, 10/29/20 12:39:00 EDT, Height, 99.8, kg, 10/23/20 22:45:00 EDT, Dry Weight Start Date: 05/07/21 Status: OrderedMetoprolol Succinate ER 25 mg oral tablet, extended release 1 tablet, By Mouth, Daily, # 30 tablet, 2 Refills, [id number], 161, cm, 10/29/20 12:39:00 EDT, Height, 99.8, kg, 10/23/20 22:45:00 EDT, Dry Weight Start Date: 04/30/21 Status: Orderedomeprazole 20 mg oral enteric coated capsule 1 capsule, By Mouth, 2 times a day, # 60 capsule, 2 Refills, [facility], 161, cm, 10/29/20 12:39:00 EDT, Height, 99.8, [...] problem - with severe Active depression/anxiety(Confirmed) Smoker. [employer] has worked in the past Active x [...] MESH VENTRALIGHT ECHO CIR 6 - BARD ([id number]) 1 Bard Unknown KEYLA: {[id number] Assigning Authority: FDA
[2022-03-11 02:15] LABS: Influenza A PCR NEGATIVE (Negative); Influenza B PCR NEGATIVE (Negative); Resp Syncy Virus RNA Qual PCR POSITIVE (Negative); SARS COV2 PCR INHOUSE NEGATIVE (Negative)
[2022-03-11] MEDS: predniSONE 20 MG TABLET 40 MG PO (02:40)
[2022-03-11] MEDS: guaiFEN/Codeine SF 200/20/10ML 10 ML LIQUID PO (02:41)
--- NOTE | 2022-03-11 03:06 | ED_ITS ---
HPI - URI/Sore Throat General Chief Complaint: Upper Respiratory Symptoms Stated Complaint: Earache/Headache/Cough Time Seen by Provider: 03/11/22 02:18 Source: patient Mode of arrival: ambulatory Limitations: no limitations History of Present Illness HPI Narrative: Patient is feeling congested for last 4 5 days with cough nasal congestion low- grade fever body aches no significant shortness of breath patient does have history of asthma was wheezing earlier patient with coughing a lot mostly dry Related Data Previous Rx's Medication Instructions Recorded albuterol sulfate 1.25 mg/3 mL 1.25 mg (3 mL) inhalation Q4-6H 01/25/20 solution for nebulization PRN shortness of breath or wheezing #75 mL albuterol sulfate 90 mcg/actuation 2 puff inhalation Q6H PRN 01/25/20 aerosol inhaler shortness of breath or wheezing #18 grams prednisone 20 mg tablet 40 mg PO DAILY 5 days #10 tabs 02/15/20 prednisone 20 mg tablet 40 mg PO DAILY 4 days #8 tabs 03/10/20 doxycycline hyclate 100 mg tablet 100 mg PO Q12H 10 days #20 tabs 05/19/20 prednisone 20 mg tablet 60 mg PO DAILY 5 days #15 tabs 05/19/20 acetaminophen 500 mg tablet 1,000 mg PO QID PRN fever or pain 07/20/20 (Tylenol Extra Strength) #14 tabs albuterol sulfate 0.63 mg/3 mL 0.63 mg (3 mL) inhalation QID PRN 07/20/20 solution for nebulization shortness of breath or wheezing #75 mL albuterol sulfate 90 mcg/actuation 1 inh inhalation QID PRN shortness 07/20/20 aerosol inhaler of breath or wheezing #8.5 grams blood sugar diagnostic (FreeStyle #100 ea 07/20/20 Lite Strips) blood-glucose meter (FreeStyle #1 ea 07/20/20 Forrest Lite kit) doxycycline monohydrate 100 mg 100 mg PO BID 10 days #20 caps 07/20/20 capsule ibuprofen 800 mg tablet 800 mg PO Q8H PRN pain #14 tabs 07/20/20 lancets 28 gauge (FreeStyle #100 ea 07/20/20 Lancets) metformin 500 mg tablet 500 mg PO BID New diagnosis 07/20/20 diabetes type 2 30 days #60 tabs prednisone 20 mg tablet 40 mg PO DAILY rash 5 days #10 tabs 07/20/20 tramadol 50 mg tablet 50 mg PO Q6H PRN pain #20 tabs 08/18/20 hydromorphone 2 mg tablet 2 mg PO Q6H PRN pain #14 tabs 12/10/20 (Dilaudid) ondansetron 4 mg disintegrating 4 mg PO Q6-8H PRN nausea and 12/10/20 tablet vomiting #7 tabs tamsulosin 0.4 mg capsule (Flomax) 0.4 mg PO DAILY #7 caps 12/10/20 tamsulosin 0.4 mg capsule (Flomax) 0.4 mg PO DAILY #10 caps 12/26/20 cyclobenzaprine 10 mg tablet 10 mg PO TID PRN muscle spasm #14 01/15/21 tabs prednisone 20 mg tablet 40 mg PO DAILY 4 days #8 tabs 03/22/21 ondansetron 4 mg disintegrating 4 mg PO Q8H PRN nausea and 06/08/21 tablet vomiting #20 tabs albuterol sulfate 2.5 mg/3 mL 2.5 mg (3 mL) inhalation Q4-6H PRN 06/29/21 (0.083 %) solution for nebulization shortness of breath or wheezing #90 mL albuterol sulfate 90 mcg/actuation 2 puff inhalation Q4-6H PRN Cough 06/29/21 aerosol inhaler (ProAir HFA) #8.5 grams codeine 10 mg-guaifenesin 100 mg/5 10 ml PO Q6H PRN cough #237 mL 06/29/21 mL oral liquid levofloxacin 500 mg tablet 500 mg PO DAILY 7 days #7 tabs 06/29/21 prednisone 20 mg tablet 40 mg PO DAILY #10 tabs 06/29/21 cyclobenzaprine 10 mg tablet 10 mg PO TID PRN muscle spasm #14 08/07/21 tabs hydromorphone 2 mg tablet 2 mg PO Q6H PRN pain (scale score 08/07/21 (Dilaudid) 7-10) #6 tabs ibuprofen 600 mg tablet 600 mg PO Q8H PRN pain #20 tabs 08/07/21 ketorolac 10 mg tablet 10 mg PO Q8H PRN pain #14 tabs 05/09/22 morphine 15 mg immediate release 15 mg PO Q12H PRN severe kidney 08/16/21 tablet stones pain #14 tabs ondansetron 4 mg disintegrating 4 mg PO Q6H #14 tabs 08/16/21 tablet prednisone 20 mg tablet 20 mg PO DAILY 5 days #5 tabs 08/16/21 tamsulosin 0.4 mg capsule (Flomax) 0.4 mg PO DAILY 5 days #5 caps 08/16/21 benzonatate 200 mg capsule 200 mg PO TID PRN cough #10 caps 08/22/21 cyclobenzaprine 5 mg tablet 5 mg PO TID PRN muscle spasm #10 10/15/21 tabs morphine 15 mg immediate release 15 mg PO Q6H PRN pain #7 tabs 10/15/21 tablet albuterol sulfate 90 mcg/actuation 2 puff inhalation Q4-6H PRN 03/11/22 aerosol inhaler (ProAir HFA) shortness of breath or wheezing #8.5 grams codeine 10 mg-guaifenesin 100 mg/5 10 ml PO Q6H PRN cough #237 mL 03/11/22 mL oral liquid prednisone 20 mg tablet 40 mg PO DAILY #10 tabs 03/11/22 Allergies Allergy/AdvReac Type Severity Reaction Status Date / Time hydrocodone [From VICODIN] Allergy Mild HIVES Verified 03/11/22 01:30 oxycodone [From PERCOCET] Allergy Mild HIVES Verified 03/11/22 01:30 azithromycin [AZITHROMYCIN] Allergy Unknown NAUSEA & Verified 03/11/22 01:30 VOMITING erythromycin base Allergy Unknown NAUSEA & Verified 03/11/22 01:30 [From ERYTHROCIN] VOMITING Review of Systems Review of Systems: Yes all other systems are reviewed and are negative PMFSH Past Medical History Medical History Anxiety Asthma Bipolar 1 disorder Breast pain, left delivery delivered Depression Diabetes Fibromyalgia HTN (hypertension) Hypertension Kidney infection Kidney stones Lupus Sciatica Sleep apnea Surgical History H/O: hysterectomy Social History Social History Alcohol intake: never Patient Tobacco Use Status: Never used Tobacco Smoked in Last 30 Days: No Use of substances other than those prescribed or required for medical reasons: No Substance Use Type: Marijuana Advance Directives: No Advance Directives Information Provided: Yes Physical Exam Vital Signs: Vital Signs: Last Vital Signs Temp 97.8 F 03/11/22 02:02 Pulse 69 03/11/22 02:02 Resp 14 03/11/22 02:02 BP 156/93 H 03/11/22 02:02 Pulse Ox 97 03/11/22 02:02 O2 Del Method 03/11/22 02:02 BMI result Body Mass Index 38.0 Appearance: Alert. Oriented X3. No acute distress. Eyes: No pallor or icterus ENT: Pharynx normal. Oral Mucosa moist clear nasal rhinorrhea Neck: Normal inspection. Neck supple. CVS: Normal heart rate and rhythm. Pulses normal. Respiratory: No respiratory distress. Equal air entry bilateral, no wheezing/rales/rhonchi Abdomen: Soft and nontender. Bowel sounds are present, no mass palpable, no CVA tenderness Skin: Skin warm and dry. Normal skin color. Normal skin turgor. Extremities: No lower extremity edema. No calf tenderness Neuro: Oriented X 3. No motor deficit. No sensory deficit Medications Administered Discontinued Medications Generic Name Dose Route Start Last Admin Trade Name Freq PRN Reason Stop Dose Admin Guaifenesin/Codeine Phosphate 10 ml 03/11/22 02:30 03/11/22 02:41 Guaifen/Codeine Sf 200/20/10ml 10 Ml Liquid PO 03/11/22 02:31 10 ml ONCE ONE Administration Prednisone 40 mg 03/11/22 02:30 03/11/22 02:40 Prednisone 20 Mg Tablet PO 03/11/22 02:31 40 mg ONCE ONE Administration MDM - URI/Sore Throat MDM Narrative Medical decision making narrative: Patient RSV bronchitis will discharge patient home on prednisone advised to continue inhaler Lab Data Attestation: I reviewed the patient's lab results. Labs: Lab Results 03/11/22 Range/Units 01:31 Influenza Type A (PCR) NEGATIVE (Negative) Influenza Type B (PCR) NEGATIVE (Negative) RSV RNA Qual (PCR) POSITIVE A (Negative) SARS-CoV-2 RNA (RT-PCR) NEGATIVE (Negative) Discharge Plan Discharge Clinical Impression: RSV bronchitis, Asthma Patient Disposition: Home, Self-Care Instructions: Respiratory Syncytial Virus (ED), Asthma (ED) Additional Instructions: Continue use her albuterol inhaler/nebulizing treatment at home Prednisone and cough syrup as prescribed Social distancing as adv Prescriptions: New prednisone 20 mg tablet 40 mg PO DAILY Qty: 10 0RF codeine-guaifenesin 10-100 mg/5 mL liquid 10 ml PO Q6H PRN (Reason: cough) Qty: 237 0RF albuterol sulfate [ProAir HFA] 90 mcg/actuation HFA aerosol inhaler 2 puff inhalation Q4-6H PRN (Reason: shortness of breath or wheezing) Qty: 8.5 0RF No Action prednisone 20 mg tablet 40 mg PO DAILY 4 Days Qty: 8 0RF tramadol 50 mg tablet 50 mg PO Q6H PRN (Reason: pain) Qty: 20 0RF tamsulosin [Flomax] 0.4 mg capsule 0.4 mg PO DAILY Qty: 7 0RF hydromorphone [Dilaudid] 2 mg tablet 2 mg PO Q6H PRN (Reason: pain) Qty: 14 0RF ondansetron 4 mg tablet,disintegrating 4 mg PO Q6-8H PRN (Reason: nausea and vomiting) Qty: 7 0RF tamsulosin [Flomax] 0.4 mg capsule 0.4 mg PO DAILY Qty: 10 0RF albuterol sulfate 90 mcg/actuation HFA aerosol inhaler 2 puff inhalation Q6H PRN (Reason: shortness of breath or wheezing) Qty: 18 0RF albuterol sulfate 1.25 mg/3 mL solution for nebulization 1.25 mg inhalation Q4-6H PRN (Reason: shortness of breath or wheezing) Qty: 75 0RF prednisone 20 mg tablet 40 mg PO DAILY 5 Days Qty: 10 0RF prednisone 20 mg tablet 60 mg PO DAILY 5 Days Qty: 15 0RF doxycycline hyclate 100 mg tablet 100 mg PO Q12H 10 Days Qty: 20 0RF metformin 500 mg tablet 500 mg PO BID 30 Days Qty: 60 0RF albuterol sulfate 0.63 mg/3 mL solution for nebulization 0.63 mg inhalation QID PRN (Reason: shortness of breath or wheezing) Qty: 75 0RF albuterol sulfate 90 mcg/actuation HFA aerosol inhaler 1 inh inhalation QID PRN (Reason: shortness of breath or wheezing) Qty: 8.5 0RF ibuprofen 800 mg tablet 800 mg PO Q8H PRN (Reason: pain) Qty: 14 0RF acetaminophen [Tylenol Extra Strength] 500 mg tablet 1,000 mg PO QID PRN (Reason: fever or pain) Qty: 14 0RF doxycycline monohydrate 100 mg capsule 100 mg PO BID 10 Days Qty: 20 0RF prednisone 20 mg tablet 40 mg PO DAILY 5 Days Qty: 10 0RF (DME) blood-glucose meter [FreeStyle Forrest Lite] Kit See Rx Instructions .ROUTE .MEDSUPPLY Qty: 1 0RF Rx Instructions: As directed (DME) FreeStyle Lite Strips Strip See Rx Instructions .ROUTE .MEDSUPPLY Qty: 100 0RF Rx Instructions: As directed (DME) lancets [FreeStyle Lancets] 28 gauge misc See Rx Instructions .ROUTE .MEDSUPPLY Qty: 100 0RF Rx Instructions: As directed ondansetron 4 mg tablet,disintegrating 4 mg PO Q8H PRN (Reason: nausea and vomiting) Qty: 20 0RF cyclobenzaprine 10 mg tablet 10 mg PO TID PRN (Reason: muscle spasm) Qty: 14 0RF ibuprofen 600 mg tablet 600 mg PO Q8H PRN (Reason: pain) Qty: 20 0RF hydromorphone [Dilaudid] 2 mg tablet 2 mg PO Q6H PRN (Reason: pain (scale score 7-10)) Qty: 6 0RF ketorolac 10 mg tablet 10 mg PO Q8H PRN (Reason: pain) Qty: 14 0RF Rx Instructions: First dose was given in the ED by IM and tolerated well tamsulosin [Flomax] 0.4 mg capsule 0.4 mg PO DAILY 5 Days Qty: 5 0RF prednisone 20 mg tablet 20 mg PO DAILY 5 Days Qty: 5 0RF ondansetron 4 mg tablet,disintegrating 4 mg PO Q6H Qty: 14 0RF morphine 15 mg tablet 15 mg PO Q12H PRN (Reason: severe kidney stones pain ) Qty: 14 0RF cyclobenzaprine 10 mg tablet 10 mg PO TID PRN (Reason: muscle spasm) Qty: 14 0RF prednisone 20 mg tablet 40 mg PO DAILY 4 Days Qty: 8 0RF prednisone 20 mg tablet 40 mg PO DAILY Qty: 10 0RF albuterol sulfate [ProAir HFA] 90 mcg/actuation HFA aerosol inhaler 2 puff inhalation Q4-6H PRN (Reason: Cough) Qty: 8.5 0RF albuterol sulfate 2.5 mg /3 mL (0.083 %) solution for nebulization 2.5 mg inhalation Q4-6H PRN (Reason: shortness of breath or wheezing) Qty: 90 0RF codeine-guaifenesin 10-100 mg/5 mL liquid 10 ml PO Q6H PRN (Reason: cough) Qty: 237 0RF levofloxacin 500 mg tablet 500 mg PO DAILY 7 Days Qty: 7 0RF benzonatate 200 mg capsule 200 mg PO TID PRN (Reason: cough) Qty: 10 0RF morphine 15 mg tablet 15 mg PO Q6H PRN (Reason: pain) Qty: 7 0RF Rx Instructions: Partial Fill upon patient request. Narcotic, no driving for 6 hours after taking this medication cyclobenzaprine 5 mg tablet 5 mg PO TID PRN (Reason: muscle spasm) Qty: 10 0RF Rx Instructions: This medication causes drowsiness, no driving for 8 hours after taking Stand Alone Forms: Work/School Release Interventions: ED Discharge Assessment Last Done: 03/11/22 03:22 Discharge Date/Time: 03/11/22 03:23
== END 2022-03-11 03:23 | disposition home or self-care (01) ==
PROVIDERS: Emergency Provider Internal Medicine; PCP Nurse Practitioner Adult Health
DX: J06.9 Acute upper respiratory infection, unspecified (principal); B97.4 Respiratory syncytial virus as the cause of diseases classified elsewhere; R51.9 Headache, unspecified; R05.9 Cough, unspecified; R50.9 Fever, unspecified; Z20.822 Contact with and (suspected) exposure to COVID-19; Z79.899 Other long term (current) drug therapy
CPT/HCPCS: 0241U; 99284

== ENCOUNTER 2022-06-19 13:17 | Emergency (ER) | payer OTHER, SELFPAY ==
--- NOTE | ~2022-06-19 | CT_ITS ---
EXAMINATION: CT chest without contrast, CT abdomen and pelvis with contrast. CLINICAL INFORMATION: Reason for Exam Right sided abdominal pain. Blood in stool COMPARISON: Prior CT December 2020 and October 2019 TECHNIQUE: Multidetector volumetric CT imaging of the chest abdomen and pelvis obtained Axial MIP volume rendering provided. Sagittal and coronal reformatted images were obtained. This CT examination was performed using dose optimization techniques as appropriate, variously including the following: *Automated exposure control *Adjustment of mA and/or kV according to patient size (this includes techniques or standardized protocols for targeted exams where dose is matched to indication/reason for exam; i.e. extremities or head) *Use of iterative reconstruction technique Reformatted coronal and sagittal imaging was performed. DLP: 478 mGy-cm FINDINGS: INTERIOR WALL ASSEMBLER, LINES TUBES: Supervisor Harvesting reviewed, no lines. LUNGS: Interstitial: No evidence of significant interstitial disease. Lung nodules: There are no significant lung nodules. AIRWAYS: Trachea and bronchi are normal. PLEURA: No pleural effusion or pneumothorax. MEDIASTINUM AND ASTER: The visualized thyroid gland is unremarkable. No mediastinal, hilar or axillary lymphadenopathy. There is no mediastinal mass. THORACIC AORTA: Thoracic aorta is normal in size. CHEST WALL, LOWER NECK, SURROUNDING SOFT TISSUES: Normal HEART AND PERICARDIUM: Heart is normal in size. There is no pericardial effusion. No coronary calcifications. HEPATOBILIARY: Diffusely hypodense liver suggesting hepatic steatosis unchanged. Redemonstration of the cystic structure anterior left lobe segment 4 measures up to 3.8 x 3.6 cm the attenuation of its matrix 23, this has not changed from prior exam. GALLBLADDER: Gallbladder unremarkable. SPLEEN: Spleen borderline enlarged 13.1 cm. Diffusely homogeneous. PANCREAS: No focal mass or ductal dilatation. GI TRACT: No distention or wall thickening. No CT evidence of appendicitis. ADRENALS: No adrenal nodules. KIDNEYS/URETERS: 3 mm nonobstructing stone middle calyx left kidney, kidneys otherwise are normal. No hydronephrosis. No hydronephrosis, stones or solid mass lesions. PELVIC ORGANS/BLADDER: Urinary bladder is decompressed unopacified grossly unremarkable. PERITONEUM: No free air or fluid. LYMPH NODES: no retroperitoneal or mesenteric lymphadenopathy. VASCULAR:Abdominal aorta normal in size, no aneurysm found. BONES, ABDOMINAL WALL AND SOFT TISSUES: Postsurgical changes anterior abdominal wall hernia repair hernia mesh in place. CT/CT abdomen pelvis w IV con IMPRESSION: * No CT evidence of acute intra-abdominal process to explain patient's pain symptoms, no evidence of appendicitis, no bowel obstruction, no free air or fluid. * Redemonstration of a hypodense structure in the left lobe of the liver 3.8 cm unchanged from prior exam. The attenuation of its matrix is higher than simple cyst however not changed from prior exam. May consider evaluation with follow-up ultrasound. * Spleen borderline enlarged 13.1 cm. * Diffusely hypodense liver suggesting hepatic steatosis. * Tiny nonobstructing stone middle calyx left kidney. * Postsurgical changes anterior abdominal wall hernia repair.
--- NOTE | ~2022-06-19 | CT_ITS ---
EXAMINATION: CT chest without contrast, CT abdomen and pelvis with contrast. CLINICAL INFORMATION: Reason for Exam Right sided abdominal pain. Blood in stool COMPARISON: Prior CT December 2020 and October 2019 TECHNIQUE: Multidetector volumetric CT imaging of the chest abdomen and pelvis obtained Axial MIP volume rendering provided. Sagittal and coronal reformatted images were obtained. This CT examination was performed using dose optimization techniques as appropriate, variously including the following: *Automated exposure control *Adjustment of mA and/or kV according to patient size (this includes techniques or standardized protocols for targeted exams where dose is matched to indication/reason for exam; i.e. extremities or head) *Use of iterative reconstruction technique Reformatted coronal and sagittal imaging was performed. DLP: 478 mGy-cm FINDINGS: TELEMARKETER, LINES TUBES: Clinical Ob reviewed, no lines. LUNGS: Interstitial: No evidence of significant interstitial disease. Lung nodules: There are no significant lung nodules. AIRWAYS: Trachea and bronchi are normal. PLEURA: No pleural effusion or pneumothorax. MEDIASTINUM AND ASTER: The visualized thyroid gland is unremarkable. No mediastinal, hilar or axillary lymphadenopathy. There is no mediastinal mass. THORACIC AORTA: Thoracic aorta is normal in size. CHEST WALL, LOWER NECK, SURROUNDING SOFT TISSUES: Normal HEART AND PERICARDIUM: Heart is normal in size. There is no pericardial effusion. No coronary calcifications. HEPATOBILIARY: Diffusely hypodense liver suggesting hepatic steatosis unchanged. Redemonstration of the cystic structure anterior left lobe segment 4 measures up to 3.8 x 3.6 cm the attenuation of its matrix 23, this has not changed from prior exam. GALLBLADDER: Gallbladder unremarkable. SPLEEN: Spleen borderline enlarged 13.1 cm. Diffusely homogeneous. PANCREAS: No focal mass or ductal dilatation. GI TRACT: No distention or wall thickening. No CT evidence of appendicitis. ADRENALS: No adrenal nodules. KIDNEYS/URETERS: 3 mm nonobstructing stone middle calyx left kidney, kidneys otherwise are normal. No hydronephrosis. No hydronephrosis, stones or solid mass lesions. PELVIC ORGANS/BLADDER: Urinary bladder is decompressed unopacified grossly unremarkable. PERITONEUM: No free air or fluid. LYMPH NODES: no retroperitoneal or mesenteric lymphadenopathy. VASCULAR:Abdominal aorta normal in size, no aneurysm found. BONES, ABDOMINAL WALL AND SOFT TISSUES: Postsurgical changes anterior abdominal wall hernia repair hernia mesh in place. CT/CT chest wo IV con IMPRESSION: * No CT evidence of acute intra-abdominal process to explain patient's pain symptoms, no evidence of appendicitis, no bowel obstruction, no free air or fluid. * Redemonstration of a hypodense structure in the left lobe of the liver 3.8 cm unchanged from prior exam. The attenuation of its matrix is higher than simple cyst however not changed from prior exam. May consider evaluation with follow-up ultrasound. * Spleen borderline enlarged 13.1 cm. * Diffusely hypodense liver suggesting hepatic steatosis. * Tiny nonobstructing stone middle calyx left kidney. * Postsurgical changes anterior abdominal wall hernia repair.
[2022-06-19 13:23] VITALS: BP 147/96; PULSE 98; RESP 16; TEMP 36.1; O2SAT 97; BMI 38.0
[2022-06-19 14:10] LABS: Appearance Urine Clear; Color Urine Yellow; Glucose Urine UA Negative (Negative); Leukocyte Esterase Urine Trace (Negative); Nitrite Urine Negative (Negative); UMIC TRIGGER UACC YES; Urine Blood Negative (Negative); Urine Ketones Negative (Negative); Urine Protein 30 (1+) mg/dL (Neg-Trace)
--- NOTE | 2022-06-19 14:13 | ED.GENADULT ---
HPI - General Adult General Chief complaint: Abdominal Pain Stated complaint: Rectal bleeding Time Seen by Provider: 06/19/22 13:33 Source: patient Mode of arrival: ambulatory Limitations: no limitations History of Present Illness HPI narrative: 41-year-old female with history of hysterectomy and hemmrhoids presents to the ED for 3 episodes of rectal bleeding with diarrhea and right sided abdominal pain today ( morning). Patient states earlier this week she had URI symptoms. Patient denies any recent trauma to abdomen/rectum, decrease in appettte, or black stool. Related Data Previous Rx's Medication Instructions Recorded albuterol sulfate 1.25 mg/3 mL 1.25 mg (3 mL) inhalation Q4-6H 01/25/20 solution for nebulization PRN shortness of breath or wheezing #75 mL albuterol sulfate 90 mcg/actuation 2 puff inhalation Q6H PRN 01/25/20 aerosol inhaler shortness of breath or wheezing #18 grams prednisone 20 mg tablet 40 mg PO DAILY 5 days #10 tabs 02/15/20 prednisone 20 mg tablet 40 mg PO DAILY 4 days #8 tabs 03/10/20 doxycycline hyclate 100 mg tablet 100 mg PO Q12H 10 days #20 tabs 05/19/20 prednisone 20 mg tablet 60 mg PO DAILY 5 days #15 tabs 05/19/20 acetaminophen 500 mg tablet 1,000 mg PO QID PRN fever or pain 07/20/20 (Tylenol Extra Strength) #14 tabs albuterol sulfate 0.63 mg/3 mL 0.63 mg (3 mL) inhalation QID PRN 07/20/20 solution for nebulization shortness of breath or wheezing #75 mL albuterol sulfate 90 mcg/actuation 1 inh inhalation QID PRN shortness 07/20/20 aerosol inhaler of breath or wheezing #8.5 grams blood sugar diagnostic (FreeStyle #100 ea 07/20/20 Lite Strips) blood-glucose meter (FreeStyle #1 ea 07/20/20 Rye Lite kit) doxycycline monohydrate 100 mg 100 mg PO BID 10 days #20 caps 07/20/20 capsule ibuprofen 800 mg tablet 800 mg PO Q8H PRN pain #14 tabs 07/20/20 lancets 28 gauge (FreeStyle #100 ea 07/20/20 Lancets) metformin 500 mg tablet 500 mg PO BID New diagnosis 07/20/20 diabetes type 2 30 days #60 tabs prednisone 20 mg tablet 40 mg PO DAILY rash 5 days #10 tabs 07/20/20 tramadol 50 mg tablet 50 mg PO Q6H PRN pain #20 tabs 08/18/20 hydromorphone 2 mg tablet 2 mg PO Q6H PRN pain #14 tabs 12/10/20 (Dilaudid) ondansetron 4 mg disintegrating 4 mg PO Q6-8H PRN nausea and 12/10/20 tablet vomiting #7 tabs tamsulosin 0.4 mg capsule (Flomax) 0.4 mg PO DAILY #7 caps 12/10/20 tamsulosin 0.4 mg capsule (Flomax) 0.4 mg PO DAILY #10 caps 12/26/20 cyclobenzaprine 10 mg tablet 10 mg PO TID PRN muscle spasm #14 01/15/21 tabs prednisone 20 mg tablet 40 mg PO DAILY 4 days #8 tabs 03/22/21 ondansetron 4 mg disintegrating 4 mg PO Q8H PRN nausea and 06/08/21 tablet vomiting #20 tabs albuterol sulfate 2.5 mg/3 mL 2.5 mg (3 mL) inhalation Q4-6H PRN 06/29/21 (0.083 %) solution for nebulization shortness of breath or wheezing #90 mL albuterol sulfate 90 mcg/actuation 2 puff inhalation Q4-6H PRN Cough 06/29/21 aerosol inhaler (ProAir HFA) #8.5 grams codeine 10 mg-guaifenesin 100 mg/5 10 ml PO Q6H PRN cough #237 mL 06/29/21 mL oral liquid levofloxacin 500 mg tablet 500 mg PO DAILY 7 days #7 tabs 06/29/21 prednisone 20 mg tablet 40 mg PO DAILY #10 tabs 06/29/21 cyclobenzaprine 10 mg tablet 10 mg PO TID PRN muscle spasm #14 08/07/21 tabs hydromorphone 2 mg tablet 2 mg PO Q6H PRN pain (scale score 08/07/21 (Dilaudid) 7-10) #6 tabs ibuprofen 600 mg tablet 600 mg PO Q8H PRN pain #20 tabs 08/07/21 ketorolac 10 mg tablet 10 mg PO Q8H PRN pain #14 tabs 08/16/21 morphine 15 mg immediate release 15 mg PO Q12H PRN severe kidney 08/16/21 tablet stones pain #14 tabs ondansetron 4 mg disintegrating 4 mg PO Q6H #14 tabs 08/16/21 tablet prednisone 20 mg tablet 20 mg PO DAILY 5 days #5 tabs 08/16/21 tamsulosin 0.4 mg capsule (Flomax) 0.4 mg PO DAILY 5 days #5 caps 08/16/21 benzonatate 200 mg capsule 200 mg PO TID PRN cough #10 caps 08/22/21 cyclobenzaprine 5 mg tablet 5 mg PO TID PRN muscle spasm #10 10/15/21 tabs morphine 15 mg immediate release 15 mg PO Q6H PRN pain #7 tabs 10/15/21 tablet albuterol sulfate 90 mcg/actuation 2 puff inhalation Q4-6H PRN 03/11/22 aerosol inhaler (ProAir HFA) shortness of breath or wheezing #8.5 grams codeine 10 mg-guaifenesin 100 mg/5 10 ml PO Q6H PRN cough #237 mL 03/11/22 mL oral liquid prednisone 20 mg tablet 40 mg PO DAILY #10 tabs 03/11/22 Allergies Allergy/AdvReac Type Severity Reaction Status Date / Time hydrocodone [From VICODIN] Allergy Mild HIVES Verified 06/19/22 13:22 oxycodone [From PERCOCET] Allergy Mild HIVES Verified 06/19/22 13:22 azithromycin [AZITHROMYCIN] Allergy Unknown NAUSEA & Verified 06/19/22 13:22 VOMITING erythromycin base Allergy Unknown NAUSEA & Verified 06/19/22 13:22 [From ERYTHROCIN] VOMITING Review of Systems Review of Systems: brght red rectal bleeding with diarrhea Yes all other systems are reviewed and are negative [facility] Past Medical History Medical History Anxiety Asthma Bipolar 1 disorder Breast pain, left delivery delivered Depression Diabetes Fibromyalgia HTN (hypertension) Hypertension Kidney infection Kidney stones Lupus Sciatica Sleep apnea Surgical History H/O: hysterectomy Social History Social History Alcohol intake: current Alcohol intake frequency: holidays/special occasions only Patient Tobacco Use Status: Never used Tobacco Smoked in Last 30 Days: No Use of substances other than those prescribed or required for medical reasons: Yes Substance Use Type: Marijuana Advance Directives: No Advance Directives Information Provided: No Patient : No Physical Exam ED Vital Signs: Vital Signs - 24 hr 06/19/22 13:23 06/19/22 15:27 06/19/22 16:07 Temperature 97 F 98.1 F Pulse Rate 98 74 74 Respiratory Rate 16 16 16 Blood Pressure 147/96 H 130/81 147/91 H Pulse Oximetry 97 98 98 Oxygen Delivery Method Room Air Room Air Room Air BMI result Body Mass Index 38.0 Const General: cooperative, healthy appearing, comfortable, no acute distress, well developed, alert, awake and Physically active Orientation/consciousness: oriented to person, oriented to place, oriented to time and patient oriented x3 HENMT Head: Yes normal to inspection, Yes No palpable skull fracture present, Yes normocephalic, Yes atraumatic and No abrasion Eyes General: appearance normal, both eyes and all related structures Neck Neck: Yes normal visual inspection, Yes full ROM, Yes no lymphadenopathy, Yes no meningeal signs, Yes trachea midline, Yes supple, No anterior neck swelling and No tender Chest Chest palpation & inspection: normal inspection of the chest and normal palpation of entire chest wall Resp Effort & Inspection: normal respiratory effort and able to speak in complete sentences Auscultation: clear to auscultation bilaterally Cardio Jugular venous distension: no JVD Heart sounds: S1 normal heart sound present and S2 normal heart sound present GI Other: Rectal exam: negative for bright red blood, black stool, melena. Stool is brown. Negative for external Hemmhroids ( thrombosed) Inspection: Yes normal to inspection and No abdominal wall ecchymosis Palpation (GI): Soft to palpation, not firm, Tenderness to palpation present (GI) in the RLQ, no guarding and not rigid General: No CVA tenderness and Yes no CVA tenderness Back/Spine/Pelvis Back: no CVA tenderness, No CVA tenderness and No back tenderness Skin General skin exam: no rashes or lesions noted and elasticity normal Neuro General: oriented to person, oriented to place, oriented to time, patient oriented x3, gait normal, tone normal, moves all extremities, Normal light touch and pain sensation, no meningeal signs, no focal motor deficits, CN's II-XI intact bilaterally and normal sensation to monofilament Extrem General: Yes normal to inspection and Yes full ROM Psych Appearance: grossly normal, well kempt and not disheveled Course Course Course Narrative: labs ordered. Occult stool done Reevaluation(s) Reevaluation #1: labs are normal but due to patient having right-sided low abdominal tenderness was sent for CT scan which showed no appendicitis/colitis or other abdominal etiology. CHest CT scan normal. Patient educated on follow-up with primary care provider, surgeon, and system administration advisor. physical exam Does not show any external thrombosed hemorrhoids. Not suspecting GI bleed. Time: 14:59 Medications Administered Discontinued Medications Generic Name Dose Route Start Last Admin Trade Name Freq PRN Reason Stop Dose Admin Sodium Chloride 1,000 mls @ 999 mls/hr 06/19/22 14:06 06/19/22 17:32 Ns IV 06/19/22 15:06 Infused .Q1H1M STA Infusion Iohexol 100 ml 06/19/22 15:15 06/19/22 15:18 Iohexol 350 Mg/Ml 100 Ml Infus..Btl IV 06/19/22 15:16 85 ml ONCE ONE Administration Medical Decision Making Medical Decision Making [facility] Narrative: 41 yold patient presents to ED for rectal bleeding and right-sided abdominal pain. Patient well-appearing in the ED with lab stable. Differential Diagnosis Differential Diagnoses: The differential diagnosis associated with the presentation includes ( Colitis, appendicitis, hemorrhoids, diverticulitis,) Admission/Observation Consideration of admission/observation: Escalation of care including admission/observation considered Lab Data [facility] Lab Attestation statement: I reviewed the patient's lab results. 06/19/22 14:18 06/19/22 14:18 Labs: Lab Results 06/19/22 06/19/22 06/19/22 Range/Units 13:54 13:54 13:54 WBC (4.8-10.8) X10*3/uL RBC (4.20-5.50) X10*6/uL Hgb (12.0-16.0) g/dl Hct (37.0-47.0) % MCV (80.0-98.0) fL MCH (27.0-33.0) pg MCHC (31.0-35.0) g/dl RDW (11.0-16.0) % Plt Count (160-400) X10*3/uL MPV (9.4-12.3) fL Immature Gran % (Auto) (0.0-0.4) % Neut % (Auto) (45-73) % Lymph % (Auto) (20-40) % [place] % (Auto) (2-11) % Eos % (Auto) (0-4) % Baso % (Auto) (0-2) % Lymph # (Auto) (1.2-4.9) X10*3/uL [place] # (Auto) (0.1-1.2) X10*3/uL Eos # (Auto) (0.0-0.4) X10*3/uL Baso # (Auto) (0.0-0.2) X10*3/uL Abs Immat Gran (auto) (0.00-0.03) X10*3/uL Absolute Neuts (auto) (2.0-8.3) x10*3/uL Absolute Nucleated RBC (0.0-0.012) X10*3/uL Nucleated RBC % (auto) (0.0-0.2) /100WBC PT (10.0-13.1) SEC INR (0.9-1.1) APTT (26.0-36.4) SEC Sodium (135-145) mmol/L Potassium (3.3-5.1) mmol/L Chloride (96-108) mmol/L Carbon Dioxide (22-29) mmol/L Anion Gap (12-20) BUN (9-16) mg/dL Creatinine (0.5-1.4) mg/dL Estim Creat Clear Calc Estimated GFR Random Glucose (60-115) mg/dL Calcium (8.4-10.2) mg/dL Total Bilirubin (0.0-1.0) mg/dL AST (5-31) U/L ALT (0-31) U/L Alkaline Phosphatase (39-117) U/L Total Protein (6.5-8.0) g/dL Albumin (3.5-5.0) g/dL Urine Color Yellow Urine Appearance Clear Urine pH 6.0 (5.0-9.0) Ur Specific [place] 1.020 (1.005-1.025) Urine Protein 30 (1+) H (Neg-Trace) mg/dL Urine Glucose (UA) Negative (Negative) mg/dL Urine Ketones Negative (Negative) mg/dL Urine Blood Negative (Negative) Urine Nitrite Negative (Negative) Ur Leukocyte Esterase Trace H (Negative) Urine RBC 0-2 (0-2) /HPF Urine WBC 0-5 (0-5) /HPF Ur Squamous Epith Cells 3-5 (0-2) /HPF Urine Bacteria None Seen (None Seen) Hyaline Casts 0-2 (0-2) /LPF Urine Test NEGATIVE (NEGATIVE) Stool Occult Blood (NEGATIVE) Influenza Type A (PCR) NEGATIVE (Negative) Influenza Type B (PCR) NEGATIVE (Negative) RSV RNA Qual (PCR) NEGATIVE (Negative) SARS-CoV-2 RNA (RT-PCR) NEGATIVE (Negative) 06/19/22 06/19/22 06/19/22 Range/Units 14:05 14:18 14:18 WBC 8.7 (4.8-10.8) X10*3/uL RBC 5.12 (4.20-5.50) X10*6/uL Hgb 15.0 (12.0-16.0) g/dl Hct 44.1 (37.0-47.0) % MCV 86.1 (80.0-98.0) fL MCH 29.3 (27.0-33.0) pg MCHC 34.0 (31.0-35.0) g/dl RDW 13.2 (11.0-16.0) % Plt Count 296 D (160-400) X10*3/uL MPV 9.4 (9.4-12.3) fL Immature Gran % (Auto) 0.3 (0.0-0.4) % Neut % (Auto) 60.5 (45-73) % Lymph % (Auto) 32.0 (20-40) % [place] % (Auto) 5.5 (2-11) % Eos % (Auto) 1.5 (0-4) % Baso % (Auto) 0.2 (0-2) % Lymph # (Auto) 2.8 (1.2-4.9) X10*3/uL [place] # (Auto) 0.5 (0.1-1.2) X10*3/uL Eos # (Auto) 0.1 (0.0-0.4) X10*3/uL Baso # (Auto) 0.0 (0.0-0.2) X10*3/uL Abs Immat Gran (auto) 0.03 (0.00-0.03) X10*3/uL Absolute Neuts (auto) 5.3 (2.0-8.3) x10*3/uL Absolute Nucleated RBC 0.000 (0.0-0.012) X10*3/uL Nucleated RBC % (auto) 0.0 (0.0-0.2) /100WBC PT (10.0-13.1) SEC INR (0.9-1.1) APTT (26.0-36.4) SEC Sodium 139 (135-145) mmol/L Potassium 4.2 D (3.3-5.1) mmol/L Chloride 104 (96-108) mmol/L Carbon Dioxide 25 (22-29) mmol/L Anion Gap 14 (12-20) BUN 14 (9-16) mg/dL Creatinine 0.71 (0.5-1.4) mg/dL Estim Creat Clear Calc 117.1 Estimated GFR > 60 Random Glucose 113 (60-115) mg/dL Calcium 8.9 (8.4-10.2) mg/dL Total Bilirubin 0.3 (0.0-1.0) mg/dL AST 28 (5-31) U/L ALT 40 H (0-31) U/L Alkaline Phosphatase 97 (39-117) U/L Total Protein 6.7 (6.5-8.0) g/dL Albumin 3.8 (3.5-5.0) g/dL Urine Color Urine Appearance Urine pH (5.0-9.0) Ur Specific [place] (1.005-1.025) Urine Protein (Neg-Trace) mg/dL Urine Glucose (UA) (Negative) mg/dL Urine Ketones (Negative) mg/dL Urine Blood (Negative) Urine Nitrite (Negative) Ur Leukocyte Esterase (Negative) Urine RBC (0-2) /HPF Urine WBC (0-5) /HPF Ur Squamous Epith Cells (0-2) /HPF Urine Bacteria (None Seen) Hyaline Casts (0-2) /LPF Urine Test (NEGATIVE) Stool Occult Blood NEGATIVE (NEGATIVE) Influenza Type A (PCR) (Negative) Influenza Type B (PCR) (Negative) RSV RNA Qual (PCR) (Negative) SARS-CoV-2 RNA (RT-PCR) (Negative) 06/19/22 Range/Units 14:19 WBC (4.8-10.8) X10*3/uL RBC (4.20-5.50) X10*6/uL Hgb (12.0-16.0) g/dl Hct (37.0-47.0) % MCV (80.0-98.0) fL MCH (27.0-33.0) pg MCHC (31.0-35.0) g/dl RDW (11.0-16.0) % Plt Count (160-400) X10*3/uL MPV (9.4-12.3) fL Immature Gran % (Auto) (0.0-0.4) % Neut % (Auto) (45-73) % Lymph % (Auto) (20-40) % [place] % (Auto) (2-11) % Eos % (Auto) (0-4) % Baso % (Auto) (0-2) % Lymph # (Auto) (1.2-4.9) X10*3/uL [place] # (Auto) (0.1-1.2) X10*3/uL Eos # (Auto) (0.0-0.4) X10*3/uL Baso # (Auto) (0.0-0.2) X10*3/uL Abs Immat Gran (auto) (0.00-0.03) X10*3/uL Absolute Neuts (auto) (2.0-8.3) x10*3/uL Absolute Nucleated RBC (0.0-0.012) X10*3/uL Nucleated RBC % (auto) (0.0-0.2) /100WBC PT 11.4 (10.0-13.1) SEC INR 1.0 (0.9-1.1) APTT 27.8 (26.0-36.4) SEC Sodium (135-145) mmol/L Potassium (3.3-5.1) mmol/L Chloride (96-108) mmol/L Carbon Dioxide (22-29) mmol/L Anion Gap (12-20) BUN (9-16) mg/dL Creatinine (0.5-1.4) mg/dL Estim Creat Clear Calc Estimated GFR Random Glucose (60-115) mg/dL Calcium (8.4-10.2) mg/dL Total Bilirubin (0.0-1.0) mg/dL AST (5-31) U/L ALT (0-31) U/L Alkaline Phosphatase (39-117) U/L Total Protein (6.5-8.0) g/dL Albumin (3.5-5.0) g/dL Urine Color Urine Appearance Urine pH (5.0-9.0) Ur Specific [place] (1.005-1.025) Urine Protein (Neg-Trace) mg/dL Urine Glucose (UA) (Negative) mg/dL Urine Ketones (Negative) mg/dL Urine Blood (Negative) Urine Nitrite (Negative) Ur Leukocyte Esterase (Negative) Urine RBC (0-2) /HPF Urine WBC (0-5) /HPF Ur Squamous Epith Cells (0-2) /HPF Urine Bacteria (None Seen) Hyaline Casts (0-2) /LPF Urine Test (NEGATIVE) Stool Occult Blood (NEGATIVE) Influenza Type A (PCR) (Negative) Influenza Type B (PCR) (Negative) RSV RNA Qual (PCR) (Negative) SARS-CoV-2 RNA (RT-PCR) (Negative) Independent Interpretation I performed an independent interpretation of an: CT Scan Radiology Impression Discussion of test interpretation with radiology: I have reviewed the radiologist's reading. Discharge Plan Discharge Clinical Impression: Rectal bleeding, Abdominal pain Patient Disposition: Home, Self-Care Instructions: Rectal Bleeding (ED), Abdominal Pain (ED) Additional Instructions: your blood work and images came back normal. Please follow-up with your primary care provider, system administration advisor, and surgeon. Return to the ED immediately for any recurrent rectal bleeding, weakness, dizziness, nausea, vomiting, severe abdominal pain, black stool, fever, chills, or any other concerning symptoms. Prescriptions: No Action prednisone 20 mg tablet 40 mg PO DAILY 4 Days Qty: 8 0RF tramadol 50 mg tablet 50 mg PO Q6H PRN (Reason: pain) Qty: 20 0RF tamsulosin [Flomax] 0.4 mg capsule 0.4 mg PO DAILY Qty: 7 0RF hydromorphone [Dilaudid] 2 mg tablet 2 mg PO Q6H PRN (Reason: pain) Qty: 14 0RF ondansetron 4 mg tablet,disintegrating 4 mg PO Q6-8H PRN (Reason: nausea and vomiting) Qty: 7 0RF tamsulosin [Flomax] 0.4 mg capsule 0.4 mg PO DAILY Qty: 10 0RF albuterol sulfate 90 mcg/actuation HFA aerosol inhaler 2 puff inhalation Q6H PRN (Reason: shortness of breath or wheezing) Qty: 18 0RF albuterol sulfate 1.25 mg/3 mL solution for nebulization 1.25 mg inhalation Q4-6H PRN (Reason: shortness of breath or wheezing) Qty: 75 0RF prednisone 20 mg tablet 40 mg PO DAILY 5 Days Qty: 10 0RF prednisone 20 mg tablet 60 mg PO DAILY 5 Days Qty: 15 0RF doxycycline hyclate 100 mg tablet 100 mg PO Q12H 10 Days Qty: 20 0RF metformin 500 mg tablet 500 mg PO BID 30 Days Qty: 60 0RF albuterol sulfate 0.63 mg/3 mL solution for nebulization 0.63 mg inhalation QID PRN (Reason: shortness of breath or wheezing) Qty: 75 0RF albuterol sulfate 90 mcg/actuation HFA aerosol inhaler 1 inh inhalation QID PRN (Reason: shortness of breath or wheezing) Qty: 8.5 0RF ibuprofen 800 mg tablet 800 mg PO Q8H PRN (Reason: pain) Qty: 14 0RF acetaminophen [Tylenol Extra Strength] 500 mg tablet 1,000 mg PO QID PRN (Reason: fever or pain) Qty: 14 0RF doxycycline monohydrate 100 mg capsule 100 mg PO BID 10 Days Qty: 20 0RF prednisone 20 mg tablet 40 mg PO DAILY 5 Days Qty: 10 0RF (DME) blood-glucose meter [FreeStyle Rye Lite] Kit See Rx Instructions .ROUTE .MEDSUPPLY Qty: 1 0RF Rx Instructions: As directed (DME) FreeStyle Lite Strips Strip See Rx Instructions .ROUTE .MEDSUPPLY Qty: 100 0RF Rx Instructions: As directed (DME) lancets [FreeStyle Lancets] 28 gauge misc See Rx Instructions .ROUTE .MEDSUPPLY Qty: 100 0RF Rx Instructions: As directed ondansetron 4 mg tablet,disintegrating 4 mg PO Q8H PRN (Reason: nausea and vomiting) Qty: 20 0RF cyclobenzaprine 10 mg tablet 10 mg PO TID PRN (Reason: muscle spasm) Qty: 14 0RF ibuprofen 600 mg tablet 600 mg PO Q8H PRN (Reason: pain) Qty: 20 0RF hydromorphone [Dilaudid] 2 mg tablet 2 mg PO Q6H PRN (Reason: pain (scale score 7-10)) Qty: 6 0RF ketorolac 10 mg tablet 10 mg PO Q8H PRN (Reason: pain) Qty: 14 0RF Rx Instructions: First dose was given in the ED by IM and tolerated well tamsulosin [Flomax] 0.4 mg capsule 0.4 mg PO DAILY 5 Days Qty: 5 0RF prednisone 20 mg tablet 20 mg PO DAILY 5 Days Qty: 5 0RF ondansetron 4 mg tablet,disintegrating 4 mg PO Q6H Qty: 14 0RF morphine 15 mg tablet 15 mg PO Q12H PRN (Reason: severe kidney stones pain ) Qty: 14 0RF prednisone 20 mg tablet 40 mg PO DAILY Qty: 10 0RF codeine-guaifenesin 10-100 mg/5 mL liquid 10 ml PO Q6H PRN (Reason: cough) Qty: 237 0RF albuterol sulfate [ProAir HFA] 90 mcg/actuation HFA aerosol inhaler 2 puff inhalation Q4-6H PRN (Reason: shortness of breath or wheezing) Qty: 8.5 0RF cyclobenzaprine 10 mg tablet 10 mg PO TID PRN (Reason: muscle spasm) Qty: 14 0RF prednisone 20 mg tablet 40 mg PO DAILY 4 Days Qty: 8 0RF prednisone 20 mg tablet 40 mg PO DAILY Qty: 10 0RF albuterol sulfate [ProAir HFA] 90 mcg/actuation HFA aerosol inhaler 2 puff inhalation Q4-6H PRN (Reason: Cough) Qty: 8.5 0RF albuterol sulfate 2.5 mg /3 mL (0.083 %) solution for nebulization 2.5 mg inhalation Q4-6H PRN (Reason: shortness of breath or wheezing) Qty: 90 0RF codeine-guaifenesin 10-100 mg/5 mL liquid 10 ml PO Q6H PRN (Reason: cough) Qty: 237 0RF levofloxacin 500 mg tablet 500 mg PO DAILY 7 Days Qty: 7 0RF benzonatate 200 mg capsule 200 mg PO TID PRN (Reason: cough) Qty: 10 0RF morphine 15 mg tablet 15 mg PO Q6H PRN (Reason: pain) Qty: 7 0RF Rx Instructions: Partial Fill upon patient request. Narcotic, no driving for 6 hours after taking this medication cyclobenzaprine 5 mg tablet 5 mg PO TID PRN (Reason: muscle spasm) Qty: 10 0RF Rx Instructions: This medication causes drowsiness, no driving for 8 hours after taking Stand Alone Forms: Work/School Release Interventions: ED Discharge Assessment Last Done: 06/19/22 17:32 Discharge Date/Time: 06/19/22 17:33 Print Language: Andorran
[2022-06-19 14:15] LABS: Bacteria Urine None Seen (None Seen); Hyaline Casts Urine 0-2 /LPF (0-2); RBC Urine 0-2 /HPF (0-2); WBC Urine 0-5 /HPF (0-5)
[2022-06-19 14:25] LABS: MANUAL DIFF FLAG NO
[2022-06-19 14:27] LABS: Basophils Percent Auto 0.2 % (0-2); Eosinophils Absolute Auto 0.1 X10*3/uL (0.0-0.4); Eosinophils Percent Auto 1.5 % (0-4); Hematocrit 44.1 % (37.0-47.0); Imm Gran Abs Auto 0.03 X10*3/uL (0.00-0.03); Imm Gran Pct Auto 0.3 % (0.0-0.4); Lymphocytes Absolute Auto 2.8 X10*3/uL (1.2-4.9); Mean Corpuscular Hemoglobin 29.3 pg (27.0-33.0); Mean Corpuscular Volume 86.1 fL (80.0-98.0); Mean Platelet Volume 9.4 fL (9.4-12.3); Monocytes Absolute Auto 0.5 X10*3/uL (0.1-1.2); Monocytes Percent Auto 5.5 % (2-11); Neutrophils Absolute Auto 5.3 x10*3/uL (2.0-8.3); Neutrophils Percent Auto 60.5 % (45-73); Platelet Count 296 X10*3/uL (160-400); Red Blood Count 5.12 X10*6/uL (4.20-5.50); Red Cell Distribution Width 13.2 % (11.0-16.0); White Blood Count 8.7 X10*3/uL (4.8-10.8)
--- NOTE | 2022-06-19 14:32 | PC.NURSE ---
pt a&ox3, vss, reporting 5/10 right flank pain, urine sample obtained, provider at bedside performing rectal exam, 20G IV placed left forearm, labs drawn, pt pending CT. no new orders at this time.
[2022-06-19 14:45] LABS: UPreg QC Valid YES; Urine Pregnancy NEGATIVE (NEGATIVE)
[2022-06-19 14:49] LABS: Influenza A PCR NEGATIVE (Negative); Influenza B PCR NEGATIVE (Negative); Resp Syncy Virus RNA Qual PCR NEGATIVE (Negative); SARS COV2 PCR INHOUSE NEGATIVE (Negative)
[2022-06-19 14:50] LABS: Alanine Aminotransferase 40 U/L (0-31); Albumin Level 3.8 g/dL (3.5-5.0); Alkaline Phosphatase 97 U/L (39-117); Anion Gap 14 (12-20); Aspartate Amino Transferase 28 U/L (5-31); Bilirubin Total 0.3 mg/dL (0.0-1.0); Blood Urea Nitrogen 14 mg/dL (9-16); Calcium 8.9 mg/dL (8.4-10.2); Carbon Dioxide 25 mmol/L (22-29); Chloride 104 mmol/L (96-108); Creatinine Clr Calc Pharmacy 117.1; Estimated Glomerular Filt Rate > 60; Glucose Random 113 mg/dL (60-115); Potassium 4.2 mmol/L (3.3-5.1); Sodium 139 mmol/L (135-145); Total Protein 6.7 g/dL (6.5-8.0)
[2022-06-19 14:50] LABS: OBS Int Ctl Valid YES
[2022-06-19 14:51] LABS: OBS1 NEGATIVE (NEGATIVE)
[2022-06-19 14:53] LABS: Prothrombin Time 11.4 SEC (10.0-13.1)
[2022-06-19 14:56] LABS: Partial Thromboplastin Time 27.8 SEC (26.0-36.4)
[2022-06-19] MEDS: 0.9 % Sodium Chloride 1,000 ML 999 ML IV (15:00)
[2022-06-19] MEDS: iohexoL 350 MG/ML 100 ML INFUS..BTL IV (15:18)
[2022-06-19 15:27] VITALS: BP 130/81; PULSE 74; RESP 16; O2SAT 98
[2022-06-19 16:07] VITALS: BP 147/91; PULSE 74; RESP 16; TEMP 36.7; O2SAT 98
== END 2022-06-19 17:33 | disposition home or self-care (01) ==
PROVIDERS: Physician Assistant; Emergency Provider Student in an Organized Health Care Education/Training Program; PCP Nurse Practitioner Adult Health
DX: K62.5 Hemorrhage of anus and rectum (principal); R10.13 Epigastric pain; M54.6 Pain in thoracic spine; Z20.822 Contact with and (suspected) exposure to COVID-19; Z20.828 Contact with and (suspected) exposure to other viral communicable diseases; Z79.899 Other long term (current) drug therapy
CPT/HCPCS: 0241U; 36415; 71250; 74177; 80053; 81001; 81025; 82272; 85025; 85610; 85730; 99284; Q9967

== ENCOUNTER 2022-08-05 11:01 | Emergency (ER) | payer OTHER, SELFPAY | END 2022-08-05 13:05 | disposition left against medical advice (07) | PROVIDERS: Emergency Provider Emergency Medicine; PCP Nurse Practitioner Adult Health | DX: R10.9 Unspecified abdominal pain (principal); M54.50 Low back pain, unspecified; R11.10 Vomiting, unspecified ==

== ENCOUNTER 2022-08-21 02:35 | Emergency (ER) | payer OTHER, SELFPAY ==
--- NOTE | ~2022-08-21 | XR_ITS ---
EXAMINATION: XR SHOULDER, RIGHT CLINICAL INFORMATION: Pain COMPARISON: None available. TECHNIQUE: Three views of the right shoulder. FINDINGS: Glenohumeral alignment appears anatomic. No acute fracture is seen. Soft tissue calcification lateral to the humeral head favors calcific rotator cuff tendinopathy. The acromioclavicular joint is intact with mild degenerative change. XR/XR shoulder RT min 2V IMPRESSION: No acute findings identified. Calcific rotator cuff tendinopathy.
[2022-08-21 02:43] VITALS: BP 162/110; PULSE 98; RESP 18; TEMP 36.6; O2SAT 97; BMI 35.4
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
--- NOTE | 2022-08-21 03:18 | PC.NURSE ---
Sling applied to right shoulder/arm. Pt tolerated well.
[2022-08-21] MEDS: HYDROmorphone HCl 2 MG TABLET PO (03:22)
[2022-08-21 03:28] VITALS: BP 152/94; PULSE 82; RESP 14; O2SAT 97
[2022-08-21 04:23] VITALS: BP 160/92; PULSE 76; RESP 14; O2SAT 97
== END 2022-08-21 04:24 | disposition home or self-care (01) ==
PROVIDERS: Emergency Provider Emergency Medicine Emergency Medical Services
DX: S43.421A Sprain of right rotator cuff capsule, initial encounter (principal); M79.601 Pain in right arm; X50.0XXA Overexertion from strenuous movement or load, initial encounter; Y93.9 Activity, unspecified; Y92.9 Unspecified place or not applicable; Y99.9 Unspecified external cause status; Z79.899 Other long term (current) drug therapy
CPT/HCPCS: 73030; 99284

== ENCOUNTER 2022-10-13 17:29 | Emergency (ER) | payer OTHER, SELFPAY ==
[2022-10-13 18:04] VITALS: BP 157/73; PULSE 78; RESP 18; TEMP 36.4; O2SAT 97; BMI 37.3
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
== END 2022-10-13 20:38 | disposition home or self-care (01) ==
PROVIDERS: Emergency Provider Student in an Organized Health Care Education/Training Program
DX: Z04.1 Encounter for examination and observation following transport accident (principal); M79.10 Myalgia, unspecified site
CPT/HCPCS: 96372; 99284; J1885

== ENCOUNTER 2022-12-20 08:00 | Outpatient (RCR) | payer OTHER, SELFPAY | END 2023-01-18 09:50 | disposition home or self-care (01) | LOC: HO.PT 08:00 | PROVIDERS: PCP Nurse Practitioner Adult Health; Visit Provider Nurse Practitioner Family | DX: M54.50 Low back pain, unspecified (principal); M50.80 Other cervical disc disorders, unspecified cervical region | CPT/HCPCS: 97014; 97110; 97161 ==

== ENCOUNTER 2023-06-02 23:13 | Emergency (ER) | payer OTHER, SELFPAY ==
--- NOTE | ~2023-06-02 | CT_ITS ---
EXAMINATION: CT ABDOMEN AND PELVIS WITHOUT CONTRAST CLINICAL INFORMATION: Left flank pain COMPARISON: Multiple priors with the last abdomen and pelvic CT scan of 06/19/2022 TECHNIQUE: Multidetector volumetric imaging was performed from the superior aspect of the liver through the pubic symphysis. Sagittal and coronal reformatted images were obtained on the technologist's workstation. This CT examination was performed using dose optimization techniques as appropriate, variously including the following: *Automated exposure control *Adjustment of mA and/or kV according to patient size (this includes techniques or standardized protocols for targeted exams where dose is matched to indication/reason for exam; i.e. extremities or head) *Use of iterative reconstruction technique DLP: 667 mGy-cm FINDINGS: LUNG BASES: The visualized lung bases are unremarkable. LIVER, GALLBLADDER, AND BILIARY TREE: The liver is normal in size, contour and attenuation. A 3.6 cm hypodense lesion in the liver at the junction of the right and left hepatic lobes with thin rim calcification along the right lateral wall of the lesion is noted the finding is stable in size since the previous CT scan of 07/18/2018. The rim calcifications are new compared to previous CT scans of 2019 No new liver lesions are noted within the limits of noncontrast study. No biliary ductal dilatation. The gallbladder is unremarkable with no evidence of radiopaque gallstones, gallbladder wall thickening, or obvious pericholecystic inflammatory changes. PANCREAS: Unremarkable. SPLEEN: Unremarkable. ADRENAL GLANDS: Unremarkable. KIDNEYS AND URETERS: The kidneys are normal in size, shape and attenuation. A punctate and 0.3 cm calculi are noted in the mid left kidney with a 0.2 cm calculus in the lower pole of the left kidney. No additional radiopaque ureteric calculi are seen. No evidence of hydroureteronephrosis or perinephric stranding. BLADDER: Underdistended and therefore not optimally evaluated however there is no evidence of radiopaque calculi GASTROINTESTINAL TRACT: The stomach is decompressed and therefore not optimally evaluated. No abnormal small bowel dilatation. An appendix is normal. Scattered colonic diverticula are noted without acute diverticulitis. The colon is normal in caliber. No evidence of colonic wall thickening or pericolonic fat stranding. ABDOMINAL WALL: Postsurgical changes of anterior abdominal wall hernia repair are seen with mesh in place. No evidence of recurrent hernia through the mesh. Small fat-containing anterior midline hernia in the infraumbilical region in the mid to lower pelvis is redemonstrated, without significant interval change compared to last CT scan. LYMPH NODES: No evidence of pathologically enlarged lymph nodes. VASCULAR: The aortoiliac vessels are normal in caliber with minimal calcific atherosclerosis. PELVIC VISCERA: The uterus is not seen likely surgically absent. No right adnexal mass. Unremarkable stable CT appearance of the left ovary. No left adnexal mass. OSSEOUS STRUCTURES: No acute or suspicious osseous lesions are seen. CT/CT abdomen pelvis wo IV con IMPRESSION: 1. Nonobstructing left renal calculi. No evidence of radiopaque ureteric or bladder calculi. No evidence of hydroureteronephrosis or perinephric stranding. 2. Colonic diverticulosis without acute diverticulitis. 3. A 3.6 cm hypodense lesion in the liver with thin rim calcification along the right lateral wall of the lesion is stable in size since the previous CT scan of 07/18/2018. The rim calcifications are new compared to previous CT scans of 2019 and both discretely seen on the CT scans of 12/10/2020 and 06/18/2020. No new liver lesions are noted within the limits of noncontrast study. 4. Postsurgical changes of anterior abdominal wall hernia repair with mesh in place. No evidence of recurrent hernia through the mesh. Small fat-containing anterior midline hernia in the infraumbilical region in the mid to lower pelvis is redemonstrated, without significant interval change compared to last CT scan. Fleischner guidelines were followed.
[2023-06-03 00:18] VITALS: BP 124/88; PULSE 98; RESP 16; TEMP 37.2; O2SAT 96; BMI 35.4
--- NOTE | 2023-06-03 00:36 | MHC.EDTECH ---
Patient brought to triage area,labs,and a urine sample collected and sent to lab.
[2023-06-03 00:41] LABS: MANUAL DIFF FLAG NO
[2023-06-03 00:43] LABS: Basophils Percent Auto 0.4 % (0-2); Eosinophils Absolute Auto 0.2 X10*3/uL (0.0-0.4); Hematocrit 40.8 % (37.0-47.0); Imm Gran Abs Auto 0.05 X10*3/uL (0.00-0.03); Imm Gran Pct Auto 0.6 % (0.0-0.4); Lymphocytes Absolute Auto 2.5 X10*3/uL (1.2-4.9); Mean Corpuscular HGB Conc 34.3 g/dl (31.0-35.0); Mean Corpuscular Hemoglobin 29.2 pg (27.0-33.0); Mean Corpuscular Volume 85.2 fL (80.0-98.0); Mean Platelet Volume 9.3 fL (9.4-12.3); Monocytes Absolute Auto 0.5 X10*3/uL (0.1-1.2); Neutrophils Absolute Auto 4.8 x10*3/uL (2.0-8.3); Platelet Count 281 X10*3/uL (160-400); Red Blood Count 4.79 X10*6/uL (4.20-5.50); Red Cell Distribution Width 13.1 % (11.0-16.0)
[2023-06-03 00:44] LABS: Appearance Urine Clear; Color Urine Yellow; Glucose Urine UA >=1000 mg/dL (Negative); Leukocyte Esterase Urine Negative (Negative); Nitrite Urine Negative (Negative); Specific Gravity - Urine 1.025 (1.005-1.025); UMIC TRIGGER UACC YES; Urine Blood Negative (Negative); Urine Ketones Negative (Negative); Urine Protein Negative (Neg-Trace)
[2023-06-03 00:45] LABS: UPreg QC Valid YES; Urine Pregnancy NEGATIVE (NEGATIVE)
[2023-06-03 00:46] LABS: Bacteria Urine None Seen (None Seen); Hyaline Casts Urine 0-2 /LPF (0-2); RBC Urine 0-2 /HPF (0-2); Squamous Epithelial Cell Urine 0-2 /HPF (0-2); WBC Urine 0-5 /HPF (0-5)
[2023-06-03 00:57] LABS: Alanine Aminotransferase 26 U/L (0-31); Albumin Level 3.6 g/dL (3.5-5.0); Alkaline Phosphatase 111 U/L (39-117); Anion Gap 12 (12-20); Aspartate Amino Transferase 21 U/L (5-31); Bilirubin Total 0.1 mg/dL (0.0-1.0); Blood Urea Nitrogen 19 mg/dL (9-16); Calcium 8.8 mg/dL (8.4-10.2); Carbon Dioxide 26 mmol/L (22-29); Chloride 104 mmol/L (96-108); Creatinine Clr Calc Pharmacy 79.1; Estimated Glomerular Filt Rate > 60; Glucose Random 209 mg/dL (60-115); Potassium 3.5 mmol/L (3.3-5.1); Sodium 138 mmol/L (135-145); Total Protein 6.7 g/dL (6.5-8.0)
[2023-06-03 01:54] VITALS: BP 142/78; PULSE 88; RESP 20; TEMP 36.7; O2SAT 95
--- NOTE | 2023-06-03 01:55 | PC.NURSE ---
Pt ca&ox4, no signs of distress. Pt reports abdm pain that radiates to lower back with onset of 5pm yesterday. Pt reports n/v/d and sick contact at home of flu A. Pt denies pain/burning with urination. Pt requested and light dimmed. Plan of care ongoing.
[2023-06-03 03:05] LABS: IDNOW Serial# 152EDE1D; Influenza A Negative (Negative); Influenza B2 Negative (Negative)
[2023-06-03 03:47] VITALS: BP 118/80; PULSE 69; RESP 17; TEMP 36.5; O2SAT 97
[2023-06-03 06:33] VITALS: BP 116/79; PULSE 68; RESP 17; TEMP 36.6; O2SAT 98
--- NOTE | 2023-06-03 07:17 | ED_ITS ---
HPI - Abdominal Pain General Chief Complaint: Abdominal Pain Stated Complaint: Abd pain Time Seen by Provider: 06/03/23 07:01 Source: patient Mode of arrival: ambulatory Limitations: no limitations History of Present Illness HPI narrative: 42-year-old female history of bipolar disorder, diabetes, GERD, hypertension, fibromyalgia presents to the emergency department for evaluation of left lower quadrant pain that started last night at approximately 19:00 while at work, patient reports left lower quadrant pain radiates to the left flank region, describes it as constant pain, and very uncomfortable. Patient reports she is tolerating fluids however has not been wanting to eat. She reports she has a history of kidney stones however this feels different. She also reports associated nausea, vomiting and diarrhea. She denies fevers, chills, chest pain, shortness of breath, hematemesis, hematochezia, urinary frequency, urgency, dysuria. She does report multiple sick contacts at home son is influenza a positive and now starting to get sick. Related Data Previous Rx's Medication Instructions Recorded albuterol sulfate 1.25 mg/3 mL 1.25 mg (3 mL) inhalation Q4-6H 01/25/20 solution for nebulization PRN shortness of breath or wheezing #75 mL albuterol sulfate 90 mcg/actuation 2 puff inhalation Q6H PRN 01/25/20 aerosol inhaler shortness of breath or wheezing #18 grams prednisone 20 mg tablet 40 mg (2 x 20 mg) PO DAILY 5 days 02/15/20 #10 tabs prednisone 20 mg tablet 40 mg (2 x 20 mg) PO DAILY 4 days 03/10/20 #8 tabs doxycycline hyclate 100 mg tablet 100 mg PO Q12H 10 days #20 tabs 05/19/20 prednisone 20 mg tablet 60 mg (3 x 20 mg) PO DAILY 5 days 05/19/20 #15 tabs acetaminophen 500 mg tablet 1,000 mg (2 x 500 mg) PO QID PRN 07/20/20 (Tylenol Extra Strength) fever or pain #14 tabs albuterol sulfate 0.63 mg/3 mL 0.63 mg (3 mL) inhalation QID PRN 07/20/20 solution for nebulization shortness of breath or wheezing #75 mL albuterol sulfate 90 mcg/actuation 1 inh inhalation QID PRN shortness 07/20/20 aerosol inhaler of breath or wheezing #8.5 grams blood sugar diagnostic (FreeStyle #100 ea 07/20/20 Lite Strips) blood-glucose meter (FreeStyle #1 ea 07/20/20 [place] Lite kit) doxycycline monohydrate 100 mg 100 mg PO BID 10 days #20 caps 07/20/20 capsule lancets 28 gauge (FreeStyle #100 ea 07/20/20 Lancets) metformin 500 mg tablet 500 mg PO BID New diagnosis 07/20/20 diabetes type 2 30 days #60 tabs prednisone 20 mg tablet 40 mg (2 x 20 mg) PO DAILY rash 5 07/20/20 days #10 tabs tramadol 50 mg tablet 50 mg PO Q6H PRN pain #20 tabs 08/18/20 hydromorphone 2 mg tablet 2 mg PO Q6H PRN pain #14 tabs 12/10/20 (Dilaudid) ondansetron 4 mg disintegrating 4 mg PO Q6-8H PRN nausea and 12/10/20 tablet vomiting #7 tabs tamsulosin 0.4 mg capsule (Flomax) 0.4 mg PO DAILY #7 caps 12/10/20 tamsulosin 0.4 mg capsule (Flomax) 0.4 mg PO DAILY #10 caps 12/26/20 prednisone 20 mg tablet 40 mg (2 x 20 mg) PO DAILY 4 days 03/22/21 #8 tabs ondansetron 4 mg disintegrating 4 mg PO Q8H PRN nausea and 06/08/21 tablet vomiting #20 tabs albuterol sulfate 2.5 mg/3 mL 2.5 mg (3 mL) inhalation Q4-6H PRN 06/29/21 (0.083 %) solution for nebulization shortness of breath or wheezing #90 mL albuterol sulfate 90 mcg/actuation 2 puff inhalation Q4-6H PRN Cough 06/29/21 aerosol inhaler (ProAir HFA) #8.5 grams codeine 10 mg-guaifenesin 100 mg/5 10 ml PO Q6H PRN cough #237 mL 06/29/21 mL oral liquid levofloxacin 500 mg tablet 500 mg PO DAILY 7 days #7 tabs 06/29/21 prednisone 20 mg tablet 40 mg (2 x 20 mg) PO DAILY #10 tabs 06/29/21 hydromorphone 2 mg tablet 2 mg PO Q6H PRN pain (scale score 08/07/21 (Dilaudid) 7-10) #6 tabs morphine 15 mg immediate release 15 mg PO Q12H PRN severe kidney 08/16/21 tablet stones pain #14 tabs ondansetron 4 mg disintegrating 4 mg PO Q6H #14 tabs 08/16/21 tablet prednisone 20 mg tablet 20 mg PO DAILY 5 days #5 tabs 08/16/21 tamsulosin 0.4 mg capsule (Flomax) 0.4 mg PO DAILY 5 days #5 caps 08/16/21 benzonatate 200 mg capsule 200 mg PO TID PRN cough #10 caps 08/22/21 morphine 15 mg immediate release 15 mg PO Q6H PRN pain #7 tabs 10/15/21 tablet albuterol sulfate 90 mcg/actuation 2 puff inhalation Q4-6H PRN 03/11/22 aerosol inhaler (ProAir HFA) shortness of breath or wheezing #8.5 grams codeine 10 mg-guaifenesin 100 mg/5 10 ml PO Q6H PRN cough #237 mL 03/11/22 mL oral liquid prednisone 20 mg tablet 40 mg (2 x 20 mg) PO DAILY #10 tabs 03/11/22 hydromorphone 2 mg tablet 2 mg PO Q6H PRN pain #7 tabs 08/21/22 (Dilaudid) cyclobenzaprine 5 mg tablet 5 mg PO BEDTIME PRN muscle spasm 10/13/22 #4 tabs ketorolac 10 mg tablet 10 mg PO Q6H PRN pain 5 days #20 10/13/22 tabs ketorolac 10 mg tablet 10 mg PO TID PRN pain 5 days #15 06/03/23 tabs prednisone 20 mg tablet 20 mg PO DAILY 5 days #5 tabs 06/03/23 tamsulosin 0.4 mg capsule (Flomax) 0.4 mg PO DAILY 2 weeks #14 caps 06/03/23 Allergies Allergy/AdvReac Type Severity Reaction Status Date / Time hydrocodone [From VICODIN] Allergy Mild HIVES Verified 06/03/23 00:17 oxycodone [From PERCOCET] Allergy Mild HIVES Verified 06/03/23 00:17 azithromycin [AZITHROMYCIN] Allergy Unknown NAUSEA & Verified 06/03/23 00:17 VOMITING erythromycin base Allergy Unknown NAUSEA & Verified 06/03/23 00:17 [From ERYTHROCIN] VOMITING Review of Systems Review of Systems Yes all other systems are reviewed and are negative [facility] Past Medical History Attestation statement: The following information was validated with the patient. Source: old records reviewed and nursing notes reviewed Medical History Breast pain, left Hypertension Sleep apnea Bipolar 1 disorder Depression Anxiety delivery delivered Diabetes Sciatica Kidney infection Kidney stones HTN (hypertension) Fibromyalgia Lupus Asthma Surgical History H/O: hysterectomy Social History Social History Alcohol intake: current Alcohol intake frequency: holidays/special occasions only Patient Tobacco Use Status: Never used Tobacco Smoked in Last 30 Days: No Use of substances other than those prescribed or required for medical reasons: Yes Substance Use Type: Marijuana Advance Directives: No Advance Directives Information Provided: Yes Physical Exam ED Vital Signs: Vital Signs - 24 hr 06/03/23 00:18 06/03/23 01:54 06/03/23 03:47 Temperature 98.9 F 98.1 F 97.7 F Pulse Rate 98 88 69 Respiratory Rate 16 20 17 Blood Pressure 124/88 142/78 H 118/80 Pulse Oximetry 96 95 97 Oxygen Delivery Method Room Air Room Air Room Air 06/03/23 06:33 06/03/23 08:52 Temperature 97.9 F 97.8 F Pulse Rate 68 66 Respiratory Rate 17 18 Blood Pressure 116/79 115/80 Pulse Oximetry 98 98 Oxygen Delivery Method Room Air Room Air BMI result Body Mass Index 35.4 Vital signs stable Appearance: Alert.? Oriented X3.? No acute distress.? Head: Normocephalic, atraumatic, no step-offs or deformities Eyes: Pupils equal, round and reactive to light.? ENT: Pharynx normal.? Neck: Normal inspection.? Neck supple.? CVS: Normal heart rate and rhythm.? Pulses normal.? Respiratory: No respiratory distress.? Breath sounds normal.? Abdomen: Soft and left lower quadrant tenderness to palpation and left flank pain to palpation. Skin: Skin warm and dry.? Normal skin color.? Normal skin turgor.? Extremities: No lower extremity edema.? No calf ttp. 5/5 strength to bilateral upper and lower extremities Neuro: Oriented X 3.? No motor deficit.? No sensory deficit. CN 2-12 intact no saddle paresthesias. Ambulating with steady gait normal coordination. Course Reevaluation(s) Reevaluation #1: CBC unremarkable. Chemistry with a slightly elevated BUN and creatinine when compared to patient's baseline likely secondary to possible kidney stone, patient receiving IV hydration. UA without infection. Urine negative. Influenza negative. CT abdomen and pelvis showing a nonobstructing left renal calculi no evidence of radiopaque bladder calculi. No evidence of hydroureter nephrosis or perinephric stranding. Colonic diverticulosis. A 3.6 cm hypodense lesion in the liver with thin rim calcification. Has been noted previously. Postsurgical changes of anterior abdominal wall hernia repair with mesh in place. No evidence of recurrent hernia through the mesh. Small fat containing anterior midline hernia in the infraumbilical region in the mid to lower pelvis redemonstrated without change. Will give fluids, prednisone, Flomax. Time: 08:29 Reevaluation #2: Patient feeling much better would like to go home. Patient to be discharged home on Toradol, prednisone, Flomax, with urology follow-up Educated patient on diagnosis and treatment plan, answered all question, patient verbalizes understanding. At this time patient will be discharged home, advised to return with new or worsening symptoms. Educated on worrisome signs and symptoms and when to return. At this time I feel comfortable discharge home. Time: 11:00 Medical Decision Making Medical Decision Making [facility] Narrative: 0718 42-year-old female presents for evaluation of left lower quadrant pain with radiation to left flank region since last night. Reports associated nausea, vomiting, diarrhea. Multiple sick contacts at home. History of kidney stones. Physical exam significant left lower quadrant tenderness to palpation on exam and left flank pain. No saddle paresthesias, weakness, numbness, tingling. Ambulating with steady gait normal coordination History and physical exam concerning for possible viral illness versus kidney stone versus diverticulitis. Unlikely acute abdomen, appendicitis, pancreatitis, cholecystitis, cholangitis, choledocholithiasis. Will rule out metabolic derangements, urinary infection although unlikely. Will also rule out . I do not suspect cauda equina, epidural abscess or cord compression. Plan labs, imaging, urine. Will medicate with Toradol and Zofran. CT scan ordered to evaluate for kidney stone/diverticulitis. Differential Diagnosis Differential Diagnoses: The differential diagnosis associated with the presentation includes History and physical exam concerning for possible viral illness versus kidney stone versus diverticulitis. Unlikely acute abdomen, appendicitis, pancreatitis, cholecystitis, cholangitis, choledocholithiasis. Will rule out metabolic derangements, urinary infection although unlikely. Will also rule out . I do not suspect cauda equina, epidural abscess or cord compression. Admission/Observation Consideration of admission/observation: Escalation of care including admission/observation considered Lab Data MDM Lab Attestation statement: I reviewed the patient's lab results. 06/03/23 00:32 06/03/23 00:32 Labs: Lab Results 06/03/23 06/03/23 Range/Units 00:32 02:45 WBC 8.0 (4.8-10.8) X10*3/uL RBC 4.79 (4.20-5.50) X10*6/uL Hgb 14.0 (12.0-16.0) g/dl Hct 40.8 (37.0-47.0) % MCV 85.2 (80.0-98.0) fL MCH 29.2 (27.0-33.0) pg MCHC 34.3 (31.0-35.0) g/dl RDW 13.1 (11.0-16.0) % Plt Count 281 (160-400) X10*3/uL MPV 9.3 L (9.4-12.3) fL Immature Gran % (Auto) 0.6 H (0.0-0.4) % Neut % (Auto) 60.0 (45-73) % Lymph % (Auto) 31.0 (20-40) % [place] % (Auto) 6.0 (2-11) % Eos % (Auto) 2.0 (0-4) % Baso % (Auto) 0.4 (0-2) % Lymph # (Auto) 2.5 (1.2-4.9) X10*3/uL [place] # (Auto) 0.5 (0.1-1.2) X10*3/uL Eos # (Auto) 0.2 (0.0-0.4) X10*3/uL Baso # (Auto) 0.0 (0.0-0.2) X10*3/uL Abs Immat Gran (auto) 0.05 H (0.00-0.03) X10*3/uL Absolute Neuts (auto) 4.8 (2.0-8.3) x10*3/uL Absolute Nucleated RBC 0.000 (0.0-0.012) X10*3/uL Nucleated RBC % (auto) 0.0 (0.0-0.2) /100WBC Sodium 138 (135-145) mmol/L Potassium 3.5 (3.3-5.1) mmol/L Chloride 104 (96-108) mmol/L Carbon Dioxide 26 (22-29) mmol/L Anion Gap 12 (12-20) BUN 19 H (9-16) mg/dL Creatinine 1.00 (0.5-1.4) mg/dL Estim Creat Clear Calc 79.1 Estimated GFR > 60 Random Glucose 209 H (60-115) mg/dL Calcium 8.8 (8.4-10.2) mg/dL Total Bilirubin 0.1 (0.0-1.0) mg/dL AST 21 (5-31) U/L ALT 26 (0-31) U/L Alkaline Phosphatase 111 (39-117) U/L Total Protein 6.7 (6.5-8.0) g/dL Albumin 3.6 (3.5-5.0) g/dL Urine Color Yellow Urine Appearance Clear Urine pH 7.0 (5.0-9.0) Ur Specific [place] 1.025 (1.005-1.025) Urine Protein Negative (Neg-Trace) mg/dL Urine Glucose (UA) >=1000 H (Negative) mg/dL Urine Ketones Negative (Negative) mg/dL Urine Blood Negative (Negative) Urine Nitrite Negative (Negative) Ur Leukocyte Esterase Negative (Negative) Urine RBC 0-2 (0-2) /HPF Urine WBC 0-5 (0-5) /HPF Ur Squamous Epith Cells 0-2 (0-2) /HPF Urine Bacteria None Seen (None Seen) Hyaline Casts 0-2 (0-2) /LPF Urine Test NEGATIVE (NEGATIVE) Influenza Type A (FRNACIA) Negative (Negative) Influenza Type B (FRANCIA) Negative (Negative) Influenza A & B Note See Note Independent Interpretation I performed an independent interpretation of an: CT Scan (FINDINGS: LUNG BASES: The visualized lung bases are unremarkable. LIVER, GALLBLADDER, AND BILIARY TREE: The liver is normal in size, contour and attenuation. A 3.6 cm hypodense lesion in the liver at the junction of the right and left hepatic lobes with thin rim calcification along the right late) Radiology Impression Discussion of test interpretation with radiology: I have reviewed the radiologist's reading. External Record Review External record reviewed: Inpatient record, Office record, Outpatient record, Prior outpatient labs, Prior outpatient radiology, Primary care record and Outside ED record Tests considered The following testing was considered but not selected: Considered CT with contrast however some suspicion for kidney stone. Would rather do it without contrast. Prescription Management I considered prescription management with: Pain Medication (Toradol) Chronic Conditions Patient?s care impacted by: Diabetes, Hypertension and Other (GERD, kidney stone) Medications Administered Discontinued Medications Generic Name Dose Route Start Last Admin Trade Name Freq PRN Reason Stop Dose Admin Sodium Chloride 1,000 mls @ 999 mls/hr 06/03/23 08:30 06/03/23 10:01 Ns IV 06/03/23 09:30 Infused .Q1H1M ISAIAH Infusion Ketorolac Tromethamine 30 mg 06/03/23 07:16 06/03/23 07:35 Ketorolac Tromethamine 30 Mg/Ml Vial IVPUSH 06/03/23 07:17 30 mg ONCE ONE Administration Ondansetron HCl 4 mg 06/03/23 07:16 06/03/23 07:36 Ondansetron Hcl 4 Mg/2 Ml Vial IVPUSH 06/03/23 07:17 4 mg ONCE ONE Administration Prednisone 20 mg 06/03/23 08:27 06/03/23 08:59 Prednisone 20 Mg Tablet PO 06/03/23 08:28 20 mg ONCE ONE Administration Tamsulosin HCl 0.4 mg 06/03/23 08:27 06/03/23 08:59 Tamsulosin Hcl 0.4 Mg Capsule PO 06/03/23 08:28 0.4 mg ONCE ONE Administration Discharge Plan Discharge Clinical Impression: Kidney calculi, Left flank pain, Nausea & vomiting, Diarrhea, Lesion of liver Patient Disposition: Home, Self-Care Instructions: Kidney Stones (ED), Acute Nausea and Vomiting (ED), Abdominal Pain (ED) Additional Instructions: Take your medications as prescribed. If you were prescribed antibiotics today, it is important that you take your medication to their entirety, do not skip any doses, do not finish them early. Follow-up with your primary care provider this week. Return to the emergency department with new or worsening symptoms. Such as fevers, chills, chest pain, shortness of breath, nausea, vomiting, dizziness, headache, vision changes, lethargy In case of emergency call 911 Toradol has been sent to your pharmacy, you tolerated this well in the department. Please take this as prescribed do not take this with ibuprofen, or other NSAIDs, do not mix this with alcohol. Side effects of this medication including increased risk for bleeding and possible kidney injury. FINDINGS: LUNG BASES: The visualized lung bases are unremarkable. LIVER, GALLBLADDER, AND BILIARY TREE: The liver is normal in size, contour and attenuation. A 3.6 cm hypodense lesion in the liver at the junction of the right and left hepatic lobes with thin rim calcification along the right lateral wall of the lesion is noted the finding is stable in size since the previous CT scan of 07/18/2018. The rim calcifications are new compared to previous CT scans of 2019 No new liver lesions are noted within the limits of noncontrast study. No biliary ductal dilatation. The gallbladder is unremarkable with no evidence of radiopaque gallstones, gallbladder wall thickening, or obvious pericholecystic inflammatory changes. PANCREAS: Unremarkable. SPLEEN: Unremarkable. ADRENAL GLANDS: Unremarkable. KIDNEYS AND URETERS: The kidneys are normal in size, shape and attenuation. A punctate and 0.3 cm calculi are noted in the mid left kidney with a 0.2 cm calculus in the lower pole of the left kidney. No additional radiopaque ureteric calculi are seen. No evidence of hydroureteronephrosis or perinephric stranding. BLADDER: Underdistended and therefore not optimally evaluated however there is no evidence of radiopaque calculi GASTROINTESTINAL TRACT: The stomach is decompressed and therefore not optimally evaluated. No abnormal small bowel dilatation. An appendix is normal. Scattered colonic diverticula are noted without acute diverticulitis. The colon is normal in caliber. No evidence of colonic wall thickening or pericolonic fat stranding. ABDOMINAL WALL: Postsurgical changes of anterior abdominal wall hernia repair are seen with mesh in place. No evidence of recurrent hernia through the mesh. Small fat-containing anterior midline hernia in the infraumbilical region in the mid to lower pelvis is redemonstrated, without significant interval change compared to last CT scan. LYMPH NODES: No evidence of pathologically enlarged lymph nodes. VASCULAR: The aortoiliac vessels are normal in caliber with minimal calcific atherosclerosis. PELVIC VISCERA: The uterus is not seen likely surgically absent. No right adnexal mass. Unremarkable stable CT appearance of the left ovary. No left adnexal mass. OSSEOUS STRUCTURES: No acute or suspicious osseous lesions are seen. CT/CT abdomen pelvis wo IV con IMPRESSION: 1. Nonobstructing left renal calculi. No evidence of radiopaque ureteric or bladder calculi. No evidence of hydroureteronephrosis or perinephric stranding. 2. Colonic diverticulosis without acute diverticulitis. 3. A 3.6 cm hypodense lesion in the liver with thin rim calcification along the right lateral wall of the lesion is stable in size since the previous CT scan of 07/18/2018. The rim calcifications are new compared to previous CT scans of 2019 and both discretely seen on the CT scans of 12/10/2020 and 06/18/2020. No new liver lesions are noted within the limits of noncontrast study. 4. Postsurgical changes of anterior abdominal wall hernia repair with mesh in place. No evidence of recurrent hernia through the mesh. Small fat-containing anterior midline hernia in the infraumbilical region in the mid to lower pelvis is redemonstrated, without significant interval change compared to last CT scan. Fleischner guidelines were followed. Prescriptions: New prednisone 20 mg tablet 20 mg PO DAILY 5 Days Qty: 5 0RF ketorolac 10 mg tablet 10 mg PO TID PRN (Reason: pain) 5 Days Qty: 15 0RF tamsulosin [Flomax] 0.4 mg capsule 0.4 mg PO DAILY 14 Days Qty: 14 0RF No Action prednisone 20 mg tablet 40 mg PO DAILY 4 Days Qty: 8 0RF tramadol 50 mg tablet 50 mg PO Q6H PRN (Reason: pain) Qty: 20 0RF tamsulosin [Flomax] 0.4 mg capsule 0.4 mg PO DAILY Qty: 7 0RF hydromorphone [Dilaudid] 2 mg tablet 2 mg PO Q6H PRN (Reason: pain) Qty: 14 0RF ondansetron 4 mg tablet,disintegrating 4 mg PO Q6-8H PRN (Reason: nausea and vomiting) Qty: 7 0RF tamsulosin [Flomax] 0.4 mg capsule 0.4 mg PO DAILY Qty: 10 0RF albuterol sulfate 90 mcg/actuation HFA aerosol inhaler 2 puff inhalation Q6H PRN (Reason: shortness of breath or wheezing) Qty: 18 0RF albuterol sulfate 1.25 mg/3 mL solution for nebulization 1.25 mg inhalation Q4-6H PRN (Reason: shortness of breath or wheezing) Qty: 75 0RF prednisone 20 mg tablet 40 mg PO DAILY 5 Days Qty: 10 0RF prednisone 20 mg tablet 60 mg PO DAILY 5 Days Qty: 15 0RF doxycycline hyclate 100 mg tablet 100 mg PO Q12H 10 Days Qty: 20 0RF metformin 500 mg tablet 500 mg PO BID 30 Days Qty: 60 0RF albuterol sulfate 0.63 mg/3 mL solution for nebulization 0.63 mg inhalation QID PRN (Reason: shortness of breath or wheezing) Qty: 75 0RF albuterol sulfate 90 mcg/actuation HFA aerosol inhaler 1 inh inhalation QID PRN (Reason: shortness of breath or wheezing) Qty: 8.5 0RF acetaminophen [Tylenol Extra Strength] 500 mg tablet 1,000 mg PO QID PRN (Reason: fever or pain) Qty: 14 0RF doxycycline monohydrate 100 mg capsule 100 mg PO BID 10 Days Qty: 20 0RF prednisone 20 mg tablet 40 mg PO DAILY 5 Days Qty: 10 0RF (DME) blood-glucose meter [FreeStyle [place] Lite] Kit See Rx Instructions .ROUTE .MEDSUPPLY Qty: 1 0RF Rx Instructions: As directed (DME) FreeStyle Lite Strips Strip See Rx Instructions .ROUTE .MEDSUPPLY Qty: 100 0RF Rx Instructions: As directed (DME) lancets [FreeStyle Lancets] 28 gauge misc See Rx Instructions .ROUTE .MEDSUPPLY Qty: 100 0RF Rx Instructions: As directed ondansetron 4 mg tablet,disintegrating 4 mg PO Q8H PRN (Reason: nausea and vomiting) Qty: 20 0RF hydromorphone [Dilaudid] 2 mg tablet 2 mg PO Q6H PRN (Reason: pain (scale score 7-10)) Qty: 6 0RF tamsulosin [Flomax] 0.4 mg capsule 0.4 mg PO DAILY 5 Days Qty: 5 0RF prednisone 20 mg tablet 20 mg PO DAILY 5 Days Qty: 5 0RF ondansetron 4 mg tablet,disintegrating 4 mg PO Q6H Qty: 14 0RF morphine 15 mg tablet 15 mg PO Q12H PRN (Reason: severe kidney stones pain ) Qty: 14 0RF prednisone 20 mg tablet 40 mg PO DAILY Qty: 10 0RF codeine-guaifenesin 10-100 mg/5 mL liquid 10 ml PO Q6H PRN (Reason: cough) Qty: 237 0RF albuterol sulfate [ProAir HFA] 90 mcg/actuation HFA aerosol inhaler 2 puff inhalation Q4-6H PRN (Reason: shortness of breath or wheezing) Qty: 8.5 0RF prednisone 20 mg tablet 40 mg PO DAILY 4 Days Qty: 8 0RF prednisone 20 mg tablet 40 mg PO DAILY Qty: 10 0RF albuterol sulfate [ProAir HFA] 90 mcg/actuation HFA aerosol inhaler 2 puff inhalation Q4-6H PRN (Reason: Cough) Qty: 8.5 0RF albuterol sulfate 2.5 mg /3 mL (0.083 %) solution for nebulization 2.5 mg inhalation Q4-6H PRN (Reason: shortness of breath or wheezing) Qty: 90 0RF codeine-guaifenesin 10-100 mg/5 mL liquid 10 ml PO Q6H PRN (Reason: cough) Qty: 237 0RF levofloxacin 500 mg tablet 500 mg PO DAILY 7 Days Qty: 7 0RF benzonatate 200 mg capsule 200 mg PO TID PRN (Reason: cough) Qty: 10 0RF morphine 15 mg tablet 15 mg PO Q6H PRN (Reason: pain) Qty: 7 0RF Rx Instructions: Partial Fill upon patient request. Narcotic, no driving for 6 hours after taking this medication hydromorphone [Dilaudid] 2 mg tablet 2 mg PO Q6H PRN (Reason: pain) Qty: 7 0RF Rx Instructions: Partial Fill upon patient request. ketorolac 10 mg tablet 10 mg PO Q6H PRN (Reason: pain) 5 Days Qty: 20 0RF cyclobenzaprine 5 mg tablet 5 mg PO BEDTIME PRN (Reason: muscle spasm) Qty: 4 0RF [place] [facility] [place] Group] - 1 [place] [facility] [place] [facility] - 1 week Physician,Unknown J [Primary Care Provider] - 2 days Stand Alone Forms: Work/School Release
[2023-06-03] MEDS: Ketorolac Tromethamine 30 MG/ML VIAL IVPUSH (07:35)
[2023-06-03] MEDS: ondansetron HCL 4 MG/2 ML VIAL IVPUSH (07:36)
[2023-06-03 08:52] VITALS: BP 115/80; PULSE 66; RESP 18; TEMP 36.6; O2SAT 98
[2023-06-03] MEDS: 0.9 % Sodium Chloride 1,000 ML 999 ML IV (08:58)
[2023-06-03] MEDS: predniSONE 20 MG TABLET PO (08:59)
[2023-06-03] MEDS: Tamsulosin HCL 0.4 MG CAPSULE PO (08:59)
[2023-06-03 11:11] VITALS: BP 117/82; PULSE 77; RESP 20; TEMP 36.5; O2SAT 97
== END 2023-06-03 11:23 | disposition home or self-care (01) ==
PROVIDERS: Emergency Provider Emergency Medicine
DX: N20.0 Calculus of kidney (principal); R11.2 Nausea with vomiting, unspecified; R19.7 Diarrhea, unspecified; K76.9 Liver disease, unspecified; R10.32 Left lower quadrant pain; I10 Essential (primary) hypertension; E11.9 Type 2 diabetes mellitus without complications; M32.9 Systemic lupus erythematosus, unspecified; Z79.899 Other long term (current) drug therapy
CPT/HCPCS: 36415; 74176; 80053; 81001; 81025; 85025; 87502; 96361; 96374; 96375; 99284; 99285; J1885; J2405

== ENCOUNTER 2023-08-01 11:16 | Emergency (ER) | payer OTHER, SELFPAY ==
[2023-08-01 11:52] VITALS: BP 150/94; PULSE 94; RESP 18; TEMP 36.7; O2SAT 100; BMI 36.9
--- NOTE | 2023-08-01 11:52 | ED_ITS ---
HPI - General Adult General Chief complaint: Back Pain/Injury Stated complaint: back pain Time Seen by Provider: 08/01/23 16:01 Source: patient Limitations: no limitations History of Present Illness HPI narrative: This is a 42yof with a pmhx of HTN, NIDDM, asthma, anxiety/depression, bipolar disorder, PTSD, ADHD, nephrolithiasis, fibromyalgia, hemorrhoids, chronic back pain who presents for evaluation of back pain. Patient states she has had back pain for the last 2 years. She reports no inciting injury. She states she had red blood per rectum 2 weeks ago. She states no associated rectal pain. She states no melena. She states she has known hemorrhoids, which she states has not required any surgical intervention. She states that she would suicide worsening lower back pain over the last few days. She reports no recent trauma or falls. She states no paresthesias. Pain is located over the bilateral lower back. She reports no previous back surgery. She reports no fevers or chills. She states no history of intravenous drug use. She states that she has previously tried physical therapy and has tried losing weight to help with the back pain. She states that she has had recently switched insurance and is not seen her primary care doctor in the last 1 year and for this reason is not pursue physical therapy recently. She states pain is worse with movement and states that she felt like she was having ?spasms? 1 day prior to presentation making it difficult for her to move/walk. She states ambulating independently albeit with pain. he states no intentional weight loss. She states no urinary/bowel retention or incontinence. She states no saddle paresthesias. She states no history of bleeding diathesis. She states no chest pain or dyspnea. She states no abdominal pain. She states no dysuria or urinary frequency/urgency. Related Data Previous Rx's ?Medication ?Instructions ?Recorded albuterol sulfate 1.25 mg/3 mL 1.25 mg (3 mL) inhalation Q4-6H 01/25/20 solution for nebulization PRN shortness of breath or wheezing #75 mL albuterol sulfate 90 mcg/actuation 2 puff inhalation Q6H PRN 01/25/20 aerosol inhaler shortness of breath or wheezing #18 grams prednisone 20 mg tablet 40 mg (2 x 20 mg) PO DAILY 5 days 02/15/20 #10 tabs prednisone 20 mg tablet 40 mg (2 x 20 mg) PO DAILY 4 days 03/10/20 #8 tabs doxycycline hyclate 100 mg tablet 100 mg PO Q12H 10 days #20 tabs 05/19/20 prednisone 20 mg tablet 60 mg (3 x 20 mg) PO DAILY 5 days 05/19/20 #15 tabs acetaminophen 500 mg tablet 1,000 mg (2 x 500 mg) PO QID PRN 07/20/20 (Tylenol Extra Strength) fever or pain #14 tabs albuterol sulfate 0.63 mg/3 mL 0.63 mg (3 mL) inhalation QID PRN 07/20/20 solution for nebulization shortness of breath or wheezing #75 mL albuterol sulfate 90 mcg/actuation 1 inh inhalation QID PRN shortness 07/20/20 aerosol inhaler of breath or wheezing #8.5 grams blood sugar diagnostic (FreeStyle #100 ea 07/20/20 Lite Strips) blood-glucose meter (FreeStyle #1 ea 07/20/20 [place] Lite kit) doxycycline monohydrate 100 mg 100 mg PO BID 10 days #20 caps 07/20/20 capsule lancets 28 gauge (FreeStyle #100 ea 07/20/20 Lancets) metformin 500 mg tablet 500 mg PO BID New diagnosis 07/20/20 diabetes type 2 30 days #60 tabs prednisone 20 mg tablet 40 mg (2 x 20 mg) PO DAILY rash 5 07/20/20 days #10 tabs tramadol 50 mg tablet 50 mg PO Q6H PRN pain #20 tabs 08/18/20 hydromorphone 2 mg tablet 2 mg PO Q6H PRN pain #14 tabs 12/10/20 (Dilaudid) ondansetron 4 mg disintegrating 4 mg PO Q6-8H PRN nausea and 12/10/20 tablet vomiting #7 tabs tamsulosin 0.4 mg capsule (Flomax) 0.4 mg PO DAILY #7 caps 12/10/20 tamsulosin 0.4 mg capsule (Flomax) 0.4 mg PO DAILY #10 caps 12/26/20 prednisone 20 mg tablet 40 mg (2 x 20 mg) PO DAILY 4 days 03/22/21 #8 tabs ondansetron 4 mg disintegrating 4 mg PO Q8H PRN nausea and 06/08/21 tablet vomiting #20 tabs albuterol sulfate 2.5 mg/3 mL 2.5 mg (3 mL) inhalation Q4-6H PRN 06/29/21 (0.083 %) solution for nebulization shortness of breath or wheezing #90 mL albuterol sulfate 90 mcg/actuation 2 puff inhalation Q4-6H PRN Cough 06/29/21 aerosol inhaler (ProAir HFA) #8.5 grams codeine 10 mg-guaifenesin 100 mg/5 10 ml PO Q6H PRN cough #237 mL 06/29/21 mL oral liquid levofloxacin 500 mg tablet 500 mg PO DAILY 7 days #7 tabs 06/29/21 prednisone 20 mg tablet 40 mg (2 x 20 mg) PO DAILY #10 tabs 06/29/21 hydromorphone 2 mg tablet 2 mg PO Q6H PRN pain (scale score 08/07/21 (Dilaudid) 7-10) #6 tabs morphine 15 mg immediate release 15 mg PO Q12H PRN severe kidney 08/16/21 tablet stones pain #14 tabs ondansetron 4 mg disintegrating 4 mg PO Q6H #14 tabs 08/16/21 tablet prednisone 20 mg tablet 20 mg PO DAILY 5 days #5 tabs 08/16/21 tamsulosin 0.4 mg capsule (Flomax) 0.4 mg PO DAILY 5 days #5 caps 08/16/21 benzonatate 200 mg capsule 200 mg PO TID PRN cough #10 caps 08/22/21 morphine 15 mg immediate release 15 mg PO Q6H PRN pain #7 tabs 10/15/21 tablet albuterol sulfate 90 mcg/actuation 2 puff inhalation Q4-6H PRN 03/11/22 aerosol inhaler (ProAir HFA) shortness of breath or wheezing #8.5 grams codeine 10 mg-guaifenesin 100 mg/5 10 ml PO Q6H PRN cough #237 mL 03/11/22 mL oral liquid prednisone 20 mg tablet 40 mg (2 x 20 mg) PO DAILY #10 tabs 03/11/22 hydromorphone 2 mg tablet 2 mg PO Q6H PRN pain #7 tabs 08/21/22 (Dilaudid) cyclobenzaprine 5 mg tablet 5 mg PO BEDTIME PRN muscle spasm 10/13/22 #4 tabs ketorolac 10 mg tablet 10 mg PO Q6H PRN pain 5 days #20 10/13/22 tabs ketorolac 10 mg tablet 10 mg PO TID PRN pain 5 days #15 06/03/23 tabs prednisone 20 mg tablet 20 mg PO DAILY 5 days #5 tabs 06/03/23 tamsulosin 0.4 mg capsule (Flomax) 0.4 mg PO DAILY 2 weeks #14 caps 06/03/23 acetaminophen 500 mg tablet 1,000 mg (2 x 500 mg) PO Q8H PRN 08/01/23 (Tylenol Extra Strength) back pain #60 tabs lidocaine 5 % topical patch 1 patch topical DAILY 30 days #30 08/01/23 ea metformin 500 mg tablet 500 mg PO BID 30 days #60 tabs 08/01/23 metoprolol tartrate 25 mg tablet 12.5 mg (1/2 x 25 mg) PO BID 30 08/01/23 days #30 tabs Allergies Allergy/AdvReac Type Severity Reaction Status Date / Time hydrocodone [From VICODIN] Allergy Mild HIVES Verified 08/01/23 11:58 oxycodone [From PERCOCET] Allergy Mild HIVES Verified 08/01/23 11:58 azithromycin [AZITHROMYCIN] Allergy Unknown NAUSEA & Verified 08/01/23 11:58 VOMITING erythromycin base Allergy Unknown NAUSEA & Verified 08/01/23 11:58 [From ERYTHROCIN] VOMITING Review of Systems 2 Review of Systems: ROS as per HPI [facility] Past Medical History Medical History Breast pain, left Hypertension Sleep apnea Bipolar 1 disorder Depression Anxiety delivery delivered Diabetes Sciatica Kidney infection Kidney stones HTN (hypertension) Fibromyalgia Lupus Asthma Surgical History H/O: hysterectomy Social History Social History Alcohol intake: current Alcohol intake frequency: holidays/special occasions only Patient Tobacco Use Status: Never used Tobacco Smoked in Last 30 Days: No Use of substances other than those prescribed or required for medical reasons: No Substance Use Type: Marijuana Advance Directives: No Advance Directives Information Provided: Yes Do you have a plan to hurt others: No Plan Patient : No Physical Exam ED Vital Signs: Vital Signs - 24 hr 08/01/23 11:52 08/01/23 16:41 Temperature 98.1 F 98.7 F Pulse Rate 94 77 Respiratory Rate 18 15 Blood Pressure 150/94 H 128/86 Pulse Oximetry 100 97 Oxygen Delivery Method Room Air Room Air BMI result Body Mass Index 36.9 Gen: NAD, AOx3 HEENT: NCAT CV: RRR Pulm: CTAB, no increased work of breathing GI: Soft, NTND, no rebound, guarding or rigidity MSK: No midline vertebral tenderness to palpation, crepitus or palpable step- offs, tenderness to palpation to the bilateral lower paraspinal regions without overlying skin changes, bilateral lower extremity compartments are soft with intact overlying skin Neuro: Grossly non focal, sensation intact to light touch in the bilateral lower extremity dermatomes L2-S2, 5/5 strength with bilateral hip flexion/extension, 5/5 strength with bilateral knee flexion/extension, 5/5 strength with bilateral ankle flexion/extension, 5/5 strength bilateral great hallux flexion/extension Course Course Course Narrative: This is an RME: Additional HPI, ROS, PE not included below will be deferred to primary provider. This is a [id number], with a hx of bipolar disorder, diabetes, GERD, hypertension, fibromyalgia, who presents to the ER with a complaint of back pain x 1 week. She has been using lidocaine patches, ibuprofen, muscle relaxants without relief. Also reporting 3 weeks of bloody stool with clots. Reports that pain occasionally down into her right leg. Endorsing nausea. No fevers, chills. Plan: Labs, further ER evaluation needed. Medications Administered Discontinued Medications Generic Name Dose Route Start Last Admin Trade Name Freq PRN Reason Stop Dose Admin Acetaminophen 975 mg 08/01/23 16:43 08/01/23 16:57 Acetaminophen 325 Mg Tablet PO 08/01/23 16:44 975 mg ONCE ONE Administration Diazepam 5 mg 08/01/23 16:43 08/01/23 16:58 Diazepam 5 Mg Tablet PO 08/01/23 16:44 5 mg ONCE ONE Administration Ketorolac Tromethamine 30 mg 08/01/23 16:43 08/01/23 16:59 Ketorolac Tromethamine 30 Mg/Ml Vial IM 08/01/23 16:44 30 mg ONCE ONE Administration Lidocaine 1 patch 08/01/23 16:43 08/01/23 17:00 Lidocaine 4 % Patch Adh..Patch TRANSDERMA 08/01/23 16:44 1 patch ONCE ONE Administration Protocol Medical Decision Making Medical Decision Making MDM Narrative: Differential diagnosis includes, but is not limited to strain, sprain, dorsalgia, muscle spasm. Patient is afebrile and hemodynamically stable on room air. Exam is benign and reassuring. Patient has no focal neurological deficits. I reviewed and interpreted labs, which are noncontributory. I reviewed and interpreted urinalysis, which is noncontributory is not consistent with urinary tract infection. Patient has no red flag symptoms such as nighttime pain, unintentional weight loss, fevers, chills, sweats, midline vertebral tenderness, urinary/bowel incontinence or retention, saddle paresthesias, recent spinal instrumentation, immunodeficiency or coagulopathy associated with back pain to suggest indication for further emergent evaluation such as with diagnostic imaging. Based on the history, physical exam the patient's pretest probability is very unlikely for the following: vertebral fracture, epidural hematoma, cord compression, cauda equina syndrome, acute abdominal aneurysm or back pain from a [facility] audiology. Patient does not have a history of intravenous drug use, liver or kidney disease, indwelling vascular catheter or recent spinal procedure. Given patient's history and exam, I do have high clinical suspicion for musculoskeletal etiology of her symptoms and will treat it as such. The patient is provided Toradol, Tylenol, lidocaine patch and Valium. Of note, triage note reports history of pain radiating down right leg. However, my history is not revealing of this. Patient states she has lower back pain bilaterally in the lumbar region. Patient's history does reveal that she has had insurance issues and this recently has been unable to take her metoprolol tartrate and metformin. I will provide patient with a short 1 month prescription for her previous metformin and metoprolol tartrate doses. She is aware that she will need to follow up with her primary care doctor to continue receiving these prescription medications. She is aware to call tomorrow. On re-examination, patient is well-appearing and in no acute distress. ?Patient states symptoms have improved and she is able to ambulate independently with improved pain control. There is no indication for further emergent evaluation in this otherwise well-appearing patient as above. ?Patient is provided written and verbal instructions, educational materials, prescription for Tylenol, lidocaine patches, metformin, metoprolol tartrate, recommendations for outpatient follow- up, strict return precautions and teach back is performed. ?Patient states understanding and agreement with plan of care. ?Patient is discharged home in stable and improved condition. Lab Data MDM Lab Attestation statement: I reviewed the patient's lab results. I interpreted labs as above in the medical decision-making my note 08/01/23 12:07 08/01/23 12:07 Labs: Lab Results 08/01/23 Range/Units 12:07 WBC 8.5 (4.8-10.8) X10*3/uL RBC 5.25 (4.20-5.50) X10*6/uL Hgb 15.6 (12.0-16.0) g/dl Hct 44.4 (37.0-47.0) % MCV 84.6 (80.0-98.0) fL MCH 29.7 (27.0-33.0) pg MCHC 35.1 H (31.0-35.0) g/dl RDW 13.3 (11.0-16.0) % Plt Count 328 (160-400) X10*3/uL MPV 9.5 (9.4-12.3) fL Immature Gran % (Auto) 0.6 H (0.0-0.4) % Neut % (Auto) 64.0 (45-73) % Lymph % (Auto) 26.8 (20-40) % [place] % (Auto) 6.2 (2-11) % Eos % (Auto) 2.0 (0-4) % Baso % (Auto) 0.4 (0-2) % Lymph # (Auto) 2.3 (1.2-4.9) X10*3/uL [place] # (Auto) 0.5 (0.1-1.2) X10*3/uL Eos # (Auto) 0.2 (0.0-0.4) X10*3/uL Baso # (Auto) 0.0 (0.0-0.2) X10*3/uL Abs Immat Gran (auto) 0.05 H (0.00-0.03) X10*3/uL Absolute Neuts (auto) 5.5 (2.0-8.3) x10*3/uL Absolute Nucleated RBC 0.000 (0.0-0.012) X10*3/uL Nucleated RBC % (auto) 0.0 (0.0-0.2) /100WBC PT 12.0 (11.1-13.3) SEC INR 1.0 (0.9-1.1) APTT 29.8 (26.0-36.8) SEC Sodium 140 (135-145) mmol/L Potassium 4.0 (3.3-5.1) mmol/L Chloride 104 (96-108) mmol/L Carbon Dioxide 31 H (22-29) mmol/L Anion Gap 9 L (12-20) BUN 16 (9-16) mg/dL Creatinine 0.79 (0.5-1.4) mg/dL Estim Creat Clear Calc 102.3 Estimated GFR > 60 Random Glucose 172 H (60-115) mg/dL Calcium 9.6 D (8.4-10.2) mg/dL Magnesium 2.0 (1.6-2.6) mg/dL Total Bilirubin 0.3 (0.0-1.0) mg/dL Direct Bilirubin 0.1 (0.0-0.5) mg/dL AST 26 (5-31) U/L ALT 35 H (0-31) U/L Alkaline Phosphatase 101 (39-117) U/L Total Protein 7.4 (6.5-8.0) g/dL Albumin 4.0 (3.5-5.0) g/dL Lipase 20 (8-78) U/L Beta HCG, Quant < 2 mIU/mL Urine Color Yellow Urine Appearance Cloudy Urine pH 6.5 (5.0-9.0) Ur Specific [place] 1.020 (1.005-1.025) Urine Protein 30 (1+) H (Neg-Trace) mg/dL Urine Glucose (UA) 100 H (Negative) mg/dL Urine Ketones Negative (Negative) mg/dL Urine Blood Negative (Negative) Urine Nitrite Negative (Negative) Ur Leukocyte Esterase Negative (Negative) Urine RBC 0-2 (0-2) /HPF Urine WBC 0-5 (0-5) /HPF Ur Squamous Epith Cells 11-20 (0-2) /HPF Urine Bacteria 3+ (None Seen) Hyaline Casts 0-2 (0-2) /LPF Chronic Conditions Patient?s care impacted by: Diabetes and Hypertension Social Determinants Patient?s care significantly limited by Social Determinants of Health including: Other Social Determinant of Health Health insurance difficulties Discharge Plan Discharge Clinical Impression: Back pain Patient Disposition: Home, Self-Care Instructions: Back Pain (ED) Additional Instructions: You were seen and evaluated in the emergency room. Your back pain was treated with lidocaine patch (please remove this at 5:00 a.m. on August 02 2023). You are given a prescription for lidocaine patches. Please take as directed. You were also given Toradol, Valium and Tylenol. Please continue taking 1000 mg Tylenol every 8 hours. Your next dose can be taken at 1:00 a.m. on August 02, 2023. You are given a prescription for Tylenol. Please take as directed. Please continue taking ibuprofen every 6 hours with food and water each time. Your next dose can be taken at 11:00 p.m. on August 01, 2023 Please follow-up with your primary care doctor in the next 5-7 days. ?Please return to the emergency room if you develop any worsening symptoms including, but not limited to fever, incontinence of stool or urine, inability to stool or urinates, or new numbness/tingling much legs. Prescriptions: New acetaminophen [Tylenol Extra Strength] 500 mg tablet 1,000 mg PO Q8H PRN (Reason: back pain) Qty: 60 0RF metformin 500 mg tablet 500 mg PO BID 30 Days Qty: 60 0RF metoprolol tartrate 25 mg tablet 12.5 mg PO BID 30 Days Qty: 30 0RF lidocaine 5 % adhesive patch,medicated 1 patch topical DAILY 30 Days Qty: 30 0RF Rx Instructions: leave on most painful area for up to 12 hrs No Action prednisone 20 mg tablet 40 mg PO DAILY 4 Days Qty: 8 0RF tramadol 50 mg tablet 50 mg PO Q6H PRN (Reason: pain) Qty: 20 0RF tamsulosin [Flomax] 0.4 mg capsule 0.4 mg PO DAILY Qty: 7 0RF hydromorphone [Dilaudid] 2 mg tablet 2 mg PO Q6H PRN (Reason: pain) Qty: 14 0RF ondansetron 4 mg tablet,disintegrating 4 mg PO Q6-8H PRN (Reason: nausea and vomiting) Qty: 7 0RF tamsulosin [Flomax] 0.4 mg capsule 0.4 mg PO DAILY Qty: 10 0RF albuterol sulfate 90 mcg/actuation HFA aerosol inhaler 2 puff inhalation Q6H PRN (Reason: shortness of breath or wheezing) Qty: 18 0RF albuterol sulfate 1.25 mg/3 mL solution for nebulization 1.25 mg inhalation Q4-6H PRN (Reason: shortness of breath or wheezing) Qty: 75 0RF prednisone 20 mg tablet 40 mg PO DAILY 5 Days Qty: 10 0RF prednisone 20 mg tablet 60 mg PO DAILY 5 Days Qty: 15 0RF doxycycline hyclate 100 mg tablet 100 mg PO Q12H 10 Days Qty: 20 0RF metformin 500 mg tablet 500 mg PO BID 30 Days Qty: 60 0RF albuterol sulfate 0.63 mg/3 mL solution for nebulization 0.63 mg inhalation QID PRN (Reason: shortness of breath or wheezing) Qty: 75 0RF albuterol sulfate 90 mcg/actuation HFA aerosol inhaler 1 inh inhalation QID PRN (Reason: shortness of breath or wheezing) Qty: 8.5 0RF acetaminophen [Tylenol Extra Strength] 500 mg tablet 1,000 mg PO QID PRN (Reason: fever or pain) Qty: 14 0RF doxycycline monohydrate 100 mg capsule 100 mg PO BID 10 Days Qty: 20 0RF prednisone 20 mg tablet 40 mg PO DAILY 5 Days Qty: 10 0RF (DME) blood-glucose meter [FreeStyle [place] Lite] Kit See Rx Instructions .ROUTE .MEDSUPPLY Qty: 1 0RF Rx Instructions: As directed (DME) FreeStyle Lite Strips Strip See Rx Instructions .ROUTE .MEDSUPPLY Qty: 100 0RF Rx Instructions: As directed (DME) lancets [FreeStyle Lancets] 28 gauge misc See Rx Instructions .ROUTE .MEDSUPPLY Qty: 100 0RF Rx Instructions: As directed ondansetron 4 mg tablet,disintegrating 4 mg PO Q8H PRN (Reason: nausea and vomiting) Qty: 20 0RF hydromorphone [Dilaudid] 2 mg tablet 2 mg PO Q6H PRN (Reason: pain (scale score 7-10)) Qty: 6 0RF tamsulosin [Flomax] 0.4 mg capsule 0.4 mg PO DAILY 5 Days Qty: 5 0RF prednisone 20 mg tablet 20 mg PO DAILY 5 Days Qty: 5 0RF ondansetron 4 mg tablet,disintegrating 4 mg PO Q6H Qty: 14 0RF morphine 15 mg tablet 15 mg PO Q12H PRN (Reason: severe kidney stones pain ) Qty: 14 0RF prednisone 20 mg tablet 40 mg PO DAILY Qty: 10 0RF codeine-guaifenesin 10-100 mg/5 mL liquid 10 ml PO Q6H PRN (Reason: cough) Qty: 237 0RF albuterol sulfate [ProAir HFA] 90 mcg/actuation HFA aerosol inhaler 2 puff inhalation Q4-6H PRN (Reason: shortness of breath or wheezing) Qty: 8.5 0RF prednisone 20 mg tablet 40 mg PO DAILY 4 Days Qty: 8 0RF prednisone 20 mg tablet 40 mg PO DAILY Qty: 10 0RF albuterol sulfate [ProAir HFA] 90 mcg/actuation HFA aerosol inhaler 2 puff inhalation Q4-6H PRN (Reason: Cough) Qty: 8.5 0RF albuterol sulfate 2.5 mg /3 mL (0.083 %) solution for nebulization 2.5 mg inhalation Q4-6H PRN (Reason: shortness of breath or wheezing) Qty: 90 0RF codeine-guaifenesin 10-100 mg/5 mL liquid 10 ml PO Q6H PRN (Reason: cough) Qty: 237 0RF levofloxacin 500 mg tablet 500 mg PO DAILY 7 Days Qty: 7 0RF benzonatate 200 mg capsule 200 mg PO TID PRN (Reason: cough) Qty: 10 0RF morphine 15 mg tablet 15 mg PO Q6H PRN (Reason: pain) Qty: 7 0RF Rx Instructions: Partial Fill upon patient request. Narcotic, no driving for 6 hours after taking this medication hydromorphone [Dilaudid] 2 mg tablet 2 mg PO Q6H PRN (Reason: pain) Qty: 7 0RF Rx Instructions: Partial Fill upon patient request. ketorolac 10 mg tablet 10 mg PO Q6H PRN (Reason: pain) 5 Days Qty: 20 0RF cyclobenzaprine 5 mg tablet 5 mg PO BEDTIME PRN (Reason: muscle spasm) Qty: 4 0RF prednisone 20 mg tablet 20 mg PO DAILY 5 Days Qty: 5 0RF ketorolac 10 mg tablet 10 mg PO TID PRN (Reason: pain) 5 Days Qty: 15 0RF tamsulosin [Flomax] 0.4 mg capsule 0.4 mg PO DAILY 14 Days Qty: 14 0RF Print Language: Faroese
[2023-08-01 12:15] LABS: MANUAL DIFF FLAG NO
[2023-08-01 12:17] LABS: Appearance Urine Cloudy; Color Urine Yellow; Glucose Urine UA 100 mg/dL (Negative); Leukocyte Esterase Urine Negative (Negative); Nitrite Urine Negative (Negative); PH 6.5 (5.0-9.0); UMIC TRIGGER UACC YES; Urine Blood Negative (Negative); Urine Ketones Negative (Negative); Urine Protein 30 (1+) mg/dL (Neg-Trace)
[2023-08-01 12:18] LABS: Basophils Percent Auto 0.4 % (0-2); Eosinophils Absolute Auto 0.2 X10*3/uL (0.0-0.4); Hematocrit 44.4 % (37.0-47.0); Hemoglobin 15.6 g/dl (12.0-16.0); Imm Gran Abs Auto 0.05 X10*3/uL (0.00-0.03); Imm Gran Pct Auto 0.6 % (0.0-0.4); Lymphocytes Absolute Auto 2.3 X10*3/uL (1.2-4.9); Lymphocytes Percent Auto 26.8 % (20-40); Mean Corpuscular HGB Conc 35.1 g/dl (31.0-35.0); Mean Corpuscular Hemoglobin 29.7 pg (27.0-33.0); Mean Corpuscular Volume 84.6 fL (80.0-98.0); Mean Platelet Volume 9.5 fL (9.4-12.3); Monocytes Absolute Auto 0.5 X10*3/uL (0.1-1.2); Monocytes Percent Auto 6.2 % (2-11); Neutrophils Absolute Auto 5.5 x10*3/uL (2.0-8.3); Platelet Count 328 X10*3/uL (160-400); Red Blood Count 5.25 X10*6/uL (4.20-5.50); Red Cell Distribution Width 13.3 % (11.0-16.0); White Blood Count 8.5 X10*3/uL (4.8-10.8)
[2023-08-01 12:20] LABS: Bacteria Urine 3+ (None Seen); Hyaline Casts Urine 0-2 /LPF (0-2); RBC Urine 0-2 /HPF (0-2); WBC Urine 0-5 /HPF (0-5)
[2023-08-01 12:29] LABS: Partial Thromboplastin Time 29.8 SEC (26.0-36.8)
[2023-08-01 12:40] LABS: Alanine Aminotransferase 35 U/L (0-31); Alkaline Phosphatase 101 U/L (39-117); Anion Gap 9 (12-20); Aspartate Amino Transferase 26 U/L (5-31); Bilirubin Direct 0.1 mg/dL (0.0-0.5); Bilirubin Total 0.3 mg/dL (0.0-1.0); Blood Urea Nitrogen 16 mg/dL (9-16); Calcium 9.6 mg/dL (8.4-10.2); Carbon Dioxide 31 mmol/L (22-29); Chloride 104 mmol/L (96-108); Creatinine Clr Calc Pharmacy 102.3; Estimated Glomerular Filt Rate > 60; Glucose Random 172 mg/dL (60-115); Lipase 20 U/L (8-78); Sodium 140 mmol/L (135-145); Total Protein 7.4 g/dL (6.5-8.0)
[2023-08-01 12:47] LABS: HCG Quantitative < 2 mIU/mL
[2023-08-01 16:41] VITALS: BP 128/86; PULSE 77; RESP 15; TEMP 37.1; O2SAT 97
[2023-08-01] MEDS: Acetaminophen 325 MG TABLET 975 MG PO (16:57)
[2023-08-01] MEDS: diazePAM 5 MG TABLET PO (16:58)
[2023-08-01] MEDS: Ketorolac Tromethamine 30 MG/ML VIAL IM (16:59)
[2023-08-01] MEDS: Lidocaine 4 % Patch ADH..PATCH 1 PATCH TRANSDERMA (17:00)
--- NOTE | 2023-08-01 18:49 | MHC.EDTECH ---
THIS TECH TOOK OVER CARE PCT AT 1900
[2023-08-01 19:36] VITALS: BP 144/81; PULSE 74; RESP 16; TEMP 37.1; O2SAT 98
== END 2023-08-01 19:42 | disposition home or self-care (01) ==
PROVIDERS: Physician Assistant Medical; Emergency Provider Emergency Medicine
DX: M54.50 Low back pain, unspecified (principal); I10 Essential (primary) hypertension; E11.9 Type 2 diabetes mellitus without complications; Z79.84 Long term (current) use of oral hypoglycemic drugs; Z79.899 Other long term (current) drug therapy
CPT/HCPCS: 36415; 80048; 80076; 81001; 83690; 83735; 84702; 85025; 85610; 85730; 96372; 99284; J1885

== ENCOUNTER 2023-08-08 11:18 | Outpatient (AMB) | payer OTHER, SELFPAY ==
[2023-08-08 11:19] VITALS: BP 130/90; PULSE 83; TEMP 36.4; O2SAT 98; BMI 36.7
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
== END 2023-08-08 15:43 | disposition home or self-care (01) ==
PROVIDERS: Visit Provider Nurse Practitioner Primary Care
DX: M54.50 Low back pain, unspecified (principal); K64.9 Unspecified hemorrhoids
CPT/HCPCS: 96372; 99214; J1885

== ENCOUNTER 2023-08-08 11:53 | Outpatient (REF) | payer OTHER, SELFPAY ==
--- NOTE | ~2023-08-08 | XR_ITS ---
EXAMINATION: XR ABDOMEN COMPLETE CLINICAL INDICATION: Constipation, unspecified COMPARISON: None available. TECHNIQUE: 2 supine and upright views of the abdomen. FINDINGS: There is no free air under the diaphragm. The lung bases are clear. The bowel gas pattern is normal with no evidence of ileus or obstruction. No excessive stool burden. Stool is predominantly seen in the ascending colon. Mesh anchors overlie the mid abdomen. Small phleboliths are seen in the pelvis. XR/XR abdomen min 2V IMPRESSION: 1. No obstruction. 2. Findings are not consistent with constipation.
--- NOTE | ~2023-08-08 | XR_ITS ---
EXAMINATION: XR LUMBOSACRAL SPINE CLINICAL INFORMATION: Low back pain, unspecified COMPARISON: Lumbar spine 08/07/2021 TECHNIQUE: Three views of the lumbosacral spine. FINDINGS: There 5 nonrib-bearing lumbar-type vertebral bodies. The height of the vertebral bodies and disc spaces is well-maintained. There is straightening of the usual lumbar lordosis which can be seen with muscle spasm. The posterior elements are normal. Mesh anchors overlying the mid abdomen. XR/XR lumbar spine 2-3V IMPRESSION: Muscle spasm.
[2023-08-08 13:23] LABS: MANUAL DIFF FLAG NO
[2023-08-08 13:31] LABS: Basophils Percent Auto 0.4 % (0-2); Eosinophils Absolute Auto 0.2 X10*3/uL (0.0-0.4); Eosinophils Percent Auto 1.8 % (0-4); Hematocrit 43.6 % (37.0-47.0); Hemoglobin 15.1 g/dl (12.0-16.0); Imm Gran Abs Auto 0.04 X10*3/uL (0.00-0.03); Imm Gran Pct Auto 0.5 % (0.0-0.4); Lymphocytes Absolute Auto 2.3 X10*3/uL (1.2-4.9); Lymphocytes Percent Auto 26.9 % (20-40); Mean Corpuscular HGB Conc 34.6 g/dl (31.0-35.0); Mean Corpuscular Hemoglobin 29.8 pg (27.0-33.0); Mean Corpuscular Volume 86.2 fL (80.0-98.0); Mean Platelet Volume 10.4 fL (9.4-12.3); Monocytes Absolute Auto 0.6 X10*3/uL (0.1-1.2); Monocytes Percent Auto 6.8 % (2-11); Neutrophils Absolute Auto 5.4 x10*3/uL (2.0-8.3); Neutrophils Percent Auto 63.6 % (45-73); Platelet Count 298 X10*3/uL (160-400); Red Blood Count 5.06 X10*6/uL (4.20-5.50); Red Cell Distribution Width 13.3 % (11.0-16.0); White Blood Count 8.4 X10*3/uL (4.8-10.8)
[2023-08-08 13:58] LABS: Alanine Aminotransferase 34 U/L (0-31); Albumin Level 3.9 g/dL (3.5-5.0); Alkaline Phosphatase 92 U/L (39-117); Anion Gap 11 (12-20); Aspartate Amino Transferase 27 U/L (5-31); Bilirubin Total 0.3 mg/dL (0.0-1.0); Blood Urea Nitrogen 16 mg/dL (9-16); Calcium 9.4 mg/dL (8.4-10.2); Carbon Dioxide 28 mmol/L (22-29); Chloride 101 mmol/L (96-108); Estimated Glomerular Filt Rate > 60; Glucose Random 161 mg/dL (60-115); Potassium 3.6 mmol/L (3.3-5.1); Sodium 136 mmol/L (135-145); Total Protein 7.2 g/dL (6.5-8.0)
== END 2023-08-08 11:54 | disposition home or self-care (01) ==
LOC: HO.HMGCX 11:53
PROVIDERS: PCP Nurse Practitioner Family; Visit Provider Nurse Practitioner Primary Care
DX: Z13.0 Encounter for screening for diseases of the blood and blood-forming organs and certain disorders involving the immune mechanism (principal); M54.50 Low back pain, unspecified; K59.00 Constipation, unspecified; Z91.89 Other specified personal risk factors, not elsewhere classified
CPT/HCPCS: 36415; 72100; 74019; 80053; 85025

== ENCOUNTER 2023-09-08 08:56 | Outpatient (AMB) | payer OTHER, SELFPAY ==
--- NOTE | 2023-09-08 09:01 | MHC.PC.OV ---
Vital Signs 09/08/23 09:20 09/08/23 09:24 Height 5 ft 3 in Weight 213 lb BMI 37.7 BP 142/84 H 144/92 H Blood Pressure Location Lt brachial Rt brachial Position Sitting Sitting Pulse 80 Pulse Source Pulse Oximeter Temp 98.1 F Temp Source Oral Pulse Oximetry (%) 95 Oxygen Delivery Method Room Air Intake Visit Reasons: est care Intake Note: New patient visit. Pt went to urgent care due to back pain beginning of August. Checker Stocker Required: No Allergies hydrocodone [From VICODIN] Allergy (Mild, Verified 09/08/23 09:11) HIVES oxycodone [From PERCOCET] Allergy (Mild, Verified 09/08/23 09:11) HIVES azithromycin [AZITHROMYCIN] Allergy (Unknown, Verified 09/08/23 09:11) NAUSEA & VOMITING erythromycin base [From ERYTHROCIN] Allergy (Unknown, Verified 09/08/23 09:11) NAUSEA & VOMITING Medication List - Last Reconciled 09/08/23 by Minerva Zuleta, GRAVEL MACHINE OPERATOR- acetaminophen (Tylenol Extra Strength) 1,000 mg (2 x 500 mg) PO Q8H PRN albuterol sulfate 90 mcg/actuation 1 inh inhalation QID PRN blood sugar diagnostic (FreeStyle Lite Strips) As directed blood-glucose meter (FreeStyle [place] Lite kit) As directed bupropion HCl XL 300 mg PO DAILY clonazepam 1 mg PO BEDTIME PRN ketorolac 10 mg PO DAILY lancets (FreeStyle Lancets) As directed lidocaine 5% 1 patch topical DAILY 30 days metformin 500 mg PO BID 30 days metoprolol tartrate 12.5 mg (1/2 x 25 mg) PO BID 30 days omeprazole 20 mg PO DAILY sumatriptan succinate (Imitrex) take 1 tab at onset of headache; if no relief, may repeat 1 tab after at least 2 hrs; max = 2 tabs/24 hrs PO Tobacco use date assessed: 09/08/23 Dental Screening Dental Screen Date: 09/08/23 Did you have a dental visit in the last 12 months?: No Did you have a dental problem in the last 6 months where you did not have access to dental care?: No Was dental information given to patient?: No (Has implants) HPI HPI Comments History of Present Illness Details 42-year-old female with diabetes 2, asthma, anxiety, MDD, constipation, bipolar 1 disorder, sleep apnea, renal stones, PTSD, lupus, hypertension, fibromyalgia, 3.6 cm hypodense lesion in the liver at the junction of the right and left hepatic lobes with thin rim calcification along the right lateral wall of the lesion, CAD, Small fat-containing anterior midline hernia , diverticulosis, fatty liver, splenomegaly, osteoarthritis multiple joints, hemorrhoids Status post hysterectomy, 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 DEXA - ordered today Here today as new patient for CPE Chronic back pain - lumps on the lower back,painful to touch. Known Lupus and Fibro. >> Refer to Pain Mgmt Bleeding hemorrhoids, was active w/ [facility], was going to have a colon but unable to tolerate prep. >> Refer to [facility] She is aware of liver lesion, reports it's stable. Labs 08/08/2023 normal CBC, normal lytes, normal renal function, random glucose 161, ALT 34 otherwise normal LFTs, REPLACED BY [facility] Medical History (Updated 09/08/23 @ 15:25 by Minerva Zuleta, [facility]) Sleep apnea Migraine Sinusitis Breast pain, left Hypertension Sleep apnea Bipolar 1 disorder Depression Anxiety delivery delivered Diabetes Sciatica Kidney infection Kidney stones HTN (hypertension) Fibromyalgia Lupus Asthma Surgical History (Updated 09/08/23 @ 09:29 by Steph Smart CMA) H/O section H/O: hysterectomy Family History (Updated 09/08/23 @ 09:30 by Steph Smart CMA) Maternal Grandmother HTN (hypertension) Diabetes Cancer Other FH: mental illness Substance use Social History (Updated 09/08/23 @ 09:20 by Steph Smart CMA) Housing: Apartment Alcohol intake: current Alcohol intake frequency: holidays/special occasions only Patient Tobacco Use Status: Former Tobacco user e-Cigarette/Vaping Use: Currently Using Substance Use Type: Marijuana service: Yes Current occupational status: employed 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 1. Little interest or pleasure in doing things: more than half the days 2. Feeling down, depressed, or hopeless: more than half the days 3. Trouble falling or staying asleep, or sleeping too much: more than half the days 4. Feeling tired or having little energy: more than half the days 5. Poor appetite or overeating: more than half the days 6. Feeling bad about yourself - or that you are a failure or have let yourself or your family down: more than half the days 7. Trouble concentrating on things, such as reading the newspaper or watching television: more than half the days 8. Moving or speaking so slowly that other people could have noticed. Or the opposite - being so fidgety or restless that you have been moving around a lot more than usual: several days 9. Thoughts that you would be better off or of hurting yourself in some way: not at all Total score: 15 Depression Screening Interpretation: Positive Depression Screening Follow-up: Existing condition and In treatment Depression Screening Done: Yes 45420 - PHQ-9 Billing: Yes Source: Developed by Drs. Rob Parry, Tana Rowley, Gen Mcdonald and colleagues, with an educational ezra from [employer]. Thrive Questionnaire Date Thrive assessed: 09/08/23 I am a: Patient What is your living situation today?: I have a steady place to live Within the past 12 months, did the food you bought not last and you didn't have the money to get more?: Never true Within the past 12 months, did you worry whether your food would run out before you got money to buy more?: Never true Do you have trouble paying for medicines?: No Do you have trouble getting transportation to medical appointments?: No Do you have trouble paying your heating and electricity bill?: No Do you have trouble taking care of your child, family member or friend?: No Do you have trouble with day-to-day activities such as bathing, preparing meals, shopping, managing finances, etc.?: No Are you currently unemployed and looking for a job?: No Are you interested in more education?: No Please select the resources that you would like help with: Transportation and None Currently or been in a relationship where the following occur: no concerns reported THRIVE Score: 0 AUDIT C Alcohol Use Questionnaire (AUDIT-C) 1. How often do you have a drink containing alcohol?: Monthly or less (once every six month ) 2. How many drinks containing alcohol do you have on a typical day when you are drinking?: 1 or 2 3. How often do you have six or more drinks on one occasion?: Never Total Score: 1 Score Reviewed/Action Taken: Yes JONATHON-7 AMB Questionnaire JONATHON-7 Date JONATHON - 7 assessed: 09/08/23 Feeling nervous, anxious, or on edge: 2 = More than half the days Not being able to stop or control worryin = More than half the days Worrying too much about different things: 2 = More than half the days Trouble relaxin = More than half the days Being so restless that it is hard to sit still: 2 = More than half the days Becoming easily annoyed or irritable: 1 = Several days Feeling afraid as if something awful might happen: 2 = More than half the days Total JONATHON-7 score (0-4 normal; 5-9 mild; 10-14 moderate; 15-21 severe): 13 Source: Developed by Drs. Rob Parry, Tana Rowley, Gen Mcdonald and colleagues, with an educational ezra from [employer]. JONATHON-7 Assessment Billing JONATHON-7 Assessment Tool: JONATHON-7 Assessment 09744 ACT Questionnaire In the past 4 weeks, how much of the time did your asthma keep you from getting as much done at work, school or at home?: Some of the time During the past 4 weeks, how often have you had shortness of breath?: 3-6 times a week During the past 4 weeks, how often did your asthma symptoms wake you up at night or earlier than usual in the morning?: Not at all (Needed inhaler but she cant find it and does not have a nebulizer) During the past 4 weeks, how often have you had to use your rescue inhaler or nebulizer medication?: Not at all How would you rate your asthma control during the past 4 weeks?: Poorly controlled ACT Interpretation: Positive Score: 18 Review of Systems Const Details: Constitutional: Denies fever. Skin: Denies rash. Eye: Denies eye pain. ENMT: Denies sore throat and nasal congestion. Respiratory: Denies shortness of breath and cough. Gastrointestinal: Denies nausea, vomiting or abdominal pain. Cardiovascular: Denies chest pain and syncope. Genitourinary: Denies dysuria. Neurologic: Denies headaches, confusion, and weakness. Psychiatric: Denies suicidal thoughts and substance abuse. Allergy/ Immunologic: Denies impaired immunity. Physical exam (Primary Care) Vital Signs: Last Vital Signs Temp 98.1 F 09/08/23 09:20 Pulse 80 09/08/23 09:20 BP 144/92 H 09/08/23 09:24 Pulse Ox 95 09/08/23 09:20 Oxygen Delivery Method Room Air 09/08/23 09:20 Care Plan Goal for BP management: start lisinopril Next steps: NN recheck 2 weeks BMI result Body Mass Index 37.7 BMI Assessment/Plan discussion: High BMI High, discussed plan: lifestyle Tobacco/Smoking Status: Tobacco use Status Tobacco use date assessed 09/08/23 09/08/23 09:21 Patient Tobacco Use Status Former Tobacco user 09/08/23 09:21 e-Cigarette/Vaping Use Currently Using 09/08/23 09:21 PHQ-9: PHQ-9 Score PHQ-9: Total score 15 09/08/23 09:33 Depression Screening Interpretation: Positive Depression Screening Follow-up: Existing condition and In treatment Thrive Assessment: Date of Thrive Assessment Date Thrive assessed 09/08/23 09/08/23 09:33 Currently or been in a relationship where the following occur: no concerns reported Const Other: General: Well developed, well nourished, in no acute distress. Head: Normocephalic, atraumatic. Eyes: Pupils are equal, round and reactive to light and accommodation. Conjunctivae are clear. Vision grossly normal. Ears: TMs effusions bilat right worse than left without erythema Nose: Patent, without discharge. Turbinates pale and edematous bilat Mouth: There are no ulcers or lesions noted. No inflammation, no post nasal drip, no plaques nor exudates. Neck: Supple, no adenopathy or thyromegaly. Lungs: Clear to auscultation bilaterally. No rales, rhonchi or wheeze noted. Good air flow in all [place]. Heart: Regular rate and rhythm. No murmurs, click, rubs or gallops are noted. Abdomen: Bowel sounds present in all quadrants. The abdomen is round, soft, nontender, with no masses or organomegaly noted. No hernias are noted. Musculoskeletal: Joints are nontender, without swelling, redness, or effusions. Range of motion is observed to be normal. Pulses: Peripheral pulses are equal and palpable bilaterally. Extremities: No clubbing, cyanosis nor edema is noted. Neurologic: Gait and station normal. Cranial Nerves 2-12 intact. Motor strength grossly symmetrical and intact. No sensory loss. Balance normal. Complains of pain over transverse lower back with palpation Skin: No rashes, ulcers, or lesions noted. Turgor is good. Skin color is good. Hair and nails are without abnormalities. Psych: Normal eye contact, affect and mood appropriate, and normal interactions. Patient is alert and appropriate to context. Results AMB Hemoglobin A1c AMB Hemoglobin A1c 7.8 % Last Edit by Steph Smart CMA on 09/08/23 09:55 Results Reviewed Results Reviewed: Laboratory Last Values Hgb A1c (Clinic) 7.8 % (4.0-6.0) H 09/08/23 09:22 Assessment and Plan Assessment & Plan (1) Encounter for general adult medical examination with abnormal findings: Code(s): Z00.01 - Encounter for general adult medical examination with abnormal findings (2) Encounter for screening involving social determinants of health (SDoH): Code(s): Z13.9 - Encounter for screening, unspecified (3) Menopause: Code(s): Z78.0 - Asymptomatic menopausal state (4) Lesion of liver: Code(s): K76.9 - Liver disease, unspecified (5) Hemorrhoid: Code(s): K64.9 - Unspecified hemorrhoids Qualifiers: Hemorrhoid type: unspecified Qualified Code(s): K64.9 - Unspecified hemorrhoids (6) IGNACIO on CPAP: Code(s): G47.33 - Obstructive sleep apnea (adult) (pediatric) (7) HTN (hypertension): Code(s): I10 - Essential (primary) hypertension Qualifiers: Hypertension type: secondary to endocrine disorders Qualified Code(s): I15.2 - Hypertension secondary to endocrine disorders (8) DM type 2 causing complication: Code(s): E11.8 - Type 2 diabetes mellitus with unspecified complications (9) JONATHON (generalized anxiety disorder): Code(s): F41.1 - Generalized anxiety disorder (10) MDD (major depressive disorder), recurrent episode: Code(s): F33.9 - Major depressive disorder, recurrent, unspecified Qualifiers: Major depression episode severity: moderate Qualified Code(s): F33.1 - Major depressive disorder, recurrent, moderate (11) Bipolar 1 disorder: Code(s): F31.9 - Bipolar disorder, unspecified (12) Lupus: Code(s): M32.9 - Systemic lupus erythematosus, unspecified (13) Mild intermittent asthma in adult without complication: Code(s): J45.20 - Mild intermittent asthma, uncomplicated (14) CAD (coronary artery disease): Code(s): I25.10 - Atherosclerotic heart disease of [place] coronary artery without angina pectoris Qualifiers: Coronary Disease-Associated Artery/Lesion type: [place] artery [place] vs. transplanted heart: [place] heart Associated angina: without angina Qualified Code(s): I25.10 - Atherosclerotic heart disease of [place] coronary artery without angina pectoris (15) Seasonal allergies: Code(s): J30.2 - Other seasonal allergic rhinitis (16) Obesity with serious comorbidity: Code(s): E66.9 - Obesity, unspecified Plan This note is constructed using voice recognition software. While every effort has been made to ensure accuracy in deck mechanic, still errors may have been included Sometimes, these errors may affect the content or meaning of the given sentence . Total time spent caring for the patient today, above and beyond the time allotted for her wellness visit to address the problems discuss today was 25 minutes. This includes time spent before the visit reviewing the chart, time spent during the visit, and time spent after the visit on documentation Orders: Orders AMB Hemoglobin A1c Today E11.9 - Type 2 diabetes mellitus without complications XR DEXA axial skeleton Today Z78.0 - Asymptomatic menopausal state Lipid Panel 12/04/23 E11.8 - Type 2 diabetes mellitus with unspecified complications, I10 - Essential (primary) hypertension Microalbumin, Random (w Creat) 12/04/23 E11.8 - Type 2 diabetes mellitus with unspecified complications, I10 - Essential (primary) hypertension TSH reflex Free T4 12/04/23 E11.8 - Type 2 diabetes mellitus with unspecified complications, I10 - Essential (primary) hypertension Vitamin D 1,25 dihydroxy 12/04/23 E11.8 - Type 2 diabetes mellitus with unspecified complications, I10 - Essential (primary) hypertension MM tomosynthesis screening BI Today Z12.31 - Encounter for screening mammogram for malignant neoplasm of breast, Z78.0 - Asymptomatic menopausal state Comprehensive [place]. Panel Fast 12/04/23 E11.8 - Type 2 diabetes mellitus with unspecified complications, I10 - Essential (primary) hypertension Hemoglobin A1c 12/04/23 E11.8 - Type 2 diabetes mellitus with unspecified complications, I10 - Essential (primary) hypertension Vitamin B12 and Folate 12/04/23 E11.8 - Type 2 diabetes mellitus with unspecified complications, I10 - Essential (primary) hypertension Referrals Pain Management Referral M54.50 - Low back pain, unspecified Gastroenterology Referral K64.9 - Unspecified hemorrhoids, K76.9 - Liver disease, unspecified Sleep Medicine Referral G47.33 - Obstructive sleep apnea (adult) (pediatric) Nurse Navigator Referral I15.2 - Hypertension secondary to endocrine disorders, Z13.9 - Encounter for screening, unspecified Medications: New omeprazole 20 mg PO DAILY 90 caps 0RF fluticasone propionate 50 mcg/actuation administer into each nostril 1 spray intranasal BID 16 grams 0RF metformin ER 750 mg PO BID 180 tabs 0RF lisinopril 5 mg PO DAILY 90 tabs 0RF Refilled metoprolol tartrate 12.5 mg (1/2 x 25 mg) PO BID 30 days 90 tabs 0RF Discontinued metformin Discontinued Reason: Doctor's Order 500 mg PO BID 30 days 60 tabs 0RF Patient Instructions: For her diabetes we will we will increase her metformin to 750 mg b.i.d.. We will start her on the extended release version as the immediate release did cause GI side effects. She is aware that she needs to schedule a diabetic eye exam. I have referred her to the nurse navigator to help her with transportation to her medical appointments. A referral to GI has been placed to evaluate and monitor the lesions of the liver as well as her hemorrhoids and to screen for colonoscopy as patient states that she needed 1 last year despite being age 42 at the current time. For her sleep apnea she reports that she does not have her CPAP supplies. I will place a referral to sleep Medicine for further evaluation and treatment. For her hypertension her blood pressure is above goal today. She is currently only on metoprolol 12.5 mg p.o. b.i.d.. I will start lisinopril 5 mg p.o. daily. We will have nurse navigator reach out to schedule a recheck. For her generalized anxiety MDD . bipolar and PTSD she should continue to take her bupropion, clonazepam Her asthma is currently well controlled with p.r.n. albuterol. She should continue. For the coronary artery disease it was noted on imaging and was incidental finding. It was mild. We will discuss starting a statin at the next office visit) with her lipid profile. And for this seasonal allergies recommend starting Flonase 1 spray each nostril twice per day. She should return to the office to see me in 3-4 months. Encouraged to get labs done 1 week before this visit so that we may discuss. She can return to the office sooner should she need anything. Health screenings for women You should visit your health care provider from time to time, even if you are healthy. The purpose of these visits is to: Screen for medical issues Assess your risk for future medical problems Encourage a healthy lifestyle Update vaccinations and other preventive care services Help you get to know your provider in case of an illness Information Even if you feel fine, you should still see your provider for regular checkups. These visits can help you avoid problems in the future. For example, the only way to find out if you have high blood pressure is to have it checked regularly. High blood sugar and high cholesterol levels also may not have any symptoms in the early stages. A simple blood test can check for these conditions. There are specific times when you should see your provider or receive specific health screenings. The [place] Preventive Services Task Force publishes a list of recommended screenings. Below are screening guidelines for women ages 18 to 39. BLOOD PRESSURE SCREENING Your blood pressure should be checked at least once every 3 to 5 years if: Your blood pressure is in the normal range (top number less than 120 mm Hg and bottom number less than 80 mm Hg) You don't have risk factors for high blood pressure Ask your provider if you need your blood pressure checked more often if: The top number is 120 to 129 mm Hg or the bottom number is 70 to 79 mm Hg You have diabetes, heart disease, kidney problems, are overweight, or have certain other health conditions You have a first-degree relative with high blood pressure You are Black You had high blood pressure during a If the top number is 130 mm Hg or greater or the bottom number is 80 mm Hg or greater, this is considered stage 1 hypertension. Schedule an appointment with your provider to learn how you can reduce your blood pressure. Watch for blood pressure screenings in your area. Ask your provider if you can stop in to have your blood pressure checked. BREAST CANCER SCREENING Experts do not agree about the benefits of breast self-exams in finding breast cancer or saving lives. Talk to your provider about what is best for you. A screening mammogram is not recommended for most women under age 40. Your provider may discuss and recommend mammograms, MRI scans, or ultrasounds if you have an increased risk for breast cancer, such as: A mother or sister who had breast cancer at a young age (most often starting screening earlier than the age the close relative was diagnosed) You carry a high-risk genetic marker CERVICAL CANCER SCREENING Cervical cancer screening should start at age 21 years unless your provider advises otherwise. After the first test: Women ages 21 through 29 should have a Pap test every 3 years. Exoprts do not agree on whether HPV testing is recommended for this age group. Women ages 30 through 65 should be screened with either a Pap test every 3 years or the HPV test every 5 years or both tests every 5 years (called cotesting ). Women who have been treated for precancer (cervical dysplasia) should continue to have Pap tests for 20 years after treatment or until age 65, whichever is longer. If you have had your uterus and cervix removed (total hysterectomy), and you have not been diagnosed with cervical cancer or precancer (high grade cervical neoplasia), you do not need cervical cancer screening. CHOLESTEROL SCREENING Cholesterol screening should begin at: Age 45 for women with no known risk factors for coronary heart disease Age 20 for women with known risk factors for coronary heart disease Repeat cholesterol screening should take place: Every 5 years for women with normal cholesterol levels More often if changes occur in lifestyle (including weight gain and diet) More often if you have diabetes, heart disease, kidney problems, or certain other conditions DIABETES SCREENING You should be screened for diabetes starting at age 35 and then repeated every 3 years if you have no risk factors for diabetes. Screening may need to start earlier and be repeated more often if you have other risk factors for diabetes, such as: You have a first degree relative with diabetes. You are overweight or have obesity. You have high blood pressure, prediabetes, or a history of heart disease. Screening for diabetes should be done if you are planning to become and you are overweight and have other risk factors such as high blood pressure. DENTAL EXAM Go to the dentist once or twice every year for an exam and cleaning. Your dentist will evaluate if you need more frequent visits. EYE EXAM Have an eye exam every 5 to 10 years before age 40. If you have vision problems, have an eye exam every 2 years or more often if recommended by your provider. You should have an eye exam that includes an examination of your retina (back of your eye) at least every year if you have diabetes. IMMUNIZATIONS Commonly needed vaccines include: Flu shot: get one every year. COVID-19 vaccine: ask your provider what is best for you. Tetanus-diphtheria and acellular pertussis (Tdap) vaccine: have one at or after age 19 as one of your tetanus-diphtheria vaccines if you did not receive it as an adolescent. Tetanus-diphtheria: have a booster (or Tdap) every 10 years. Varicella vaccine: receive 2 doses if you never had chickenpox or the varicella vaccine. Hepatitis B vaccine: receive 2, 3, or 4 doses, depending on your exact circumstances. Measles, mumps, and rubella (MMR) vaccine: receive 1 to 2 doses if you are not already immune to MMR. Your provider can tell you if you are immune. Ask your provider about the human papillomavirus (HPV) vaccine if: You have not received the HPV vaccine in the past You have not completed the full vaccine series (you should catch up on this shot) Ask your provider if you should receive other immunizations if you have certain health problems that increase your risk for some diseases such as pneumonia. INFECTIOUS DISEASE SCREENING Women who are sexually active should be screened for chlamydia and gonorrhea up until age 25. Women 25 years and older should be screened for chlamydia and gonorrhea if at high risk. Screening for hepatitis C: All adults ages 18 to 79 should get a one-time test for hepatitis C. people should be screened at every . Screening for human immunodeficiency virus (HIV): All people ages 15 to 65 should get a one-time test for HIV. Depending on your lifestyle and medical history, you may also need to be screened for infections such as syphilis and HIV, as well as other infections. PHYSICAL EXAM All adults should visit their provider from time to time, even if they are healthy. The purpose of these visits is to: Screen for disease Assess your risk of future medical problems Encourage a healthy lifestyle Update your vaccinations and other preventive care services Maintain a relationship with a provider in case of an illness Your height, weight, and BMI should be checked at every exam. During your exam, your provider may ask you about: Depression and anxiety Diet and exercise Alcohol and tobacco use Safety issues, such as using seat belts, smoke detectors, and intimate partner violence Your medicines and risk for interactions SKIN SELF-EXAM Your provider may check your skin for signs of skin cancer, especially if you're at high risk, such as if you: Have had skin cancer before Have close relatives with skin cancer Have a weakened immune system OTHER SCREENING Talk with your provider about colon cancer screening if you have a strong family history of colon cancer or polyps, or if you have had inflammatory bowel disease or polyps yourself. Routine bone density screening of women under 40 is not recommended. Coding Level of Care Code New Pt Level 3 (72446) New Pt Prev Care 40-64y(83204) Diagnoses Encounter for general adult medical examination with abnormal findings Z00.01 Encounter for screening involving social determinants of health (SDoH) Z13.9 Menopause Z78.0 Lesion of liver K76.9 Hemorrhoids, unspecified hemorrhoid type K64.9 Hemorrhoid type: unspecified IGNACIO on CPAP G47.33 Hypertension due to endocrine disorder I15.2 Hypertension type: secondary to endocrine disorders DM type 2 causing complication E11.8 JONATHON (generalized anxiety disorder) F41.1 Moderate episode of recurrent major depressive disorder F33.1 Major depression episode severity: moderate Bipolar 1 disorder F31.9 Lupus M32.9 Mild intermittent asthma in adult without complication J45.20 Coronary artery disease involving [place] coronary artery of [place] heart without angina pectoris I25.10 Coronary Disease-Associated Artery/Lesion type: [place] artery [place] vs. transplanted heart: [place] heart Associated angina: without angina Seasonal allergies J30.2 Obesity with serious comorbidity E66.9 Additional Codes JONATHON-7 Assessment Billing - JONATHON-7 Assessment Tool: JONATHON-7 Assessment [id number] ([id number])
[2023-09-08 09:20] VITALS: BP 142/84; PULSE 80; TEMP 36.7; O2SAT 95; BMI 37.7
[2023-09-08 09:24] VITALS: BP 144/92
== END 2023-09-08 10:03 | disposition home or self-care (01) ==
PROVIDERS: PCP Nurse Practitioner Family; Visit Provider Nurse Practitioner Family
DX: E11.9 Type 2 diabetes mellitus without complications (principal)
CPT/HCPCS: 83036; 99213; 99396

== ENCOUNTER 2023-09-12 07:55 | Outpatient (AMB) | payer OTHER, SELFPAY ==
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
[2023-09-12 08:02] VITALS: BP 122/82; PULSE 74; O2SAT 98; BMI 37.7
== END 2023-09-12 09:08 | disposition home or self-care (01) ==
PROVIDERS: PCP Nurse Practitioner Family; Visit Provider Nurse Practitioner Family
DX: G47.19 Other hypersomnia (principal); R06.00 Dyspnea, unspecified; Z86.69 Personal history of other diseases of the nervous system and sense organs; J45.909 Unspecified asthma, uncomplicated; G47.50 Parasomnia, unspecified; G25.81 Restless legs syndrome
CPT/HCPCS: 99204

== ENCOUNTER → 2023-09-12 07:55 | Outpatient (BNVA) | payer OTHER, SELFPAY | PROVIDERS: PCP Nurse Practitioner Family; Visit Provider Nurse Practitioner Family | DX: G47.19 Other hypersomnia (principal); R06.00 Dyspnea, unspecified; J45.909 Unspecified asthma, uncomplicated; G47.50 Parasomnia, unspecified; G25.81 Restless legs syndrome; Z86.69 Personal history of other diseases of the nervous system and sense organs | CPT/HCPCS: 99202 ==

== ENCOUNTER 2023-09-14 09:15 | Outpatient (AMB) | payer OTHER, SELFPAY ==
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
[2023-09-14 09:27] VITALS: BP 150/81; PULSE 79; O2SAT 96; BMI 37.5
== END 2023-09-14 09:55 | disposition home or self-care (01) ==
PROVIDERS: PCP Nurse Practitioner Family; Referring Provider Nurse Practitioner Family; Visit Provider Nurse Practitioner Family
DX: M79.7 Fibromyalgia (principal); M54.50 Low back pain, unspecified; M25.551 Pain in right hip; M25.552 Pain in left hip; M70.61 Trochanteric bursitis, right hip; M70.62 Trochanteric bursitis, left hip; M62.830 Muscle spasm of back; M53.3 Sacrococcygeal disorders, not elsewhere classified; M16.0 Bilateral primary osteoarthritis of hip
CPT/HCPCS: 99204

== ENCOUNTER → 2023-09-14 09:15 | Outpatient (BNVA) | payer OTHER, SELFPAY | PROVIDERS: PCP Nurse Practitioner Family; Referring Provider Nurse Practitioner Family; Visit Provider Nurse Practitioner Family | DX: M54.50 Low back pain, unspecified (principal); M16.0 Bilateral primary osteoarthritis of hip; M53.3 Sacrococcygeal disorders, not elsewhere classified; M62.830 Muscle spasm of back; M70.61 Trochanteric bursitis, right hip; M70.62 Trochanteric bursitis, left hip; M25.551 Pain in right hip; M25.552 Pain in left hip; M79.7 Fibromyalgia | CPT/HCPCS: 99202 ==

== ENCOUNTER 2023-09-19 14:18 | Outpatient (AMB) | payer OTHER, SELFPAY ==
--- NOTE | 2023-09-19 14:21 | MHC.OFFVIS ---
Vital Signs 09/19/23 14:22 Height 5 ft 3 in Weight 213 lb 4 oz BMI 37.8 BP 118/74 Blood Pressure Location Rt brachial Position Sitting Pulse 77 Pulse Source Pulse Oximeter Pulse Oximetry (%) 98 Oxygen Delivery Method Room Air Intake Visit Reasons: Asthma Allergies hydrocodone [From VICODIN] Allergy (Mild, Verified 09/19/23 14:24) HIVES oxycodone [From PERCOCET] Allergy (Mild, Verified 09/19/23 14:24) HIVES azithromycin [AZITHROMYCIN] Allergy (Unknown, Verified 09/19/23 14:24) NAUSEA & VOMITING erythromycin base [From ERYTHROCIN] Allergy (Unknown, Verified 09/19/23 14:24) NAUSEA & VOMITING HPI HPI Asthma: Details: Linda is a pleasant 42 year old, former smoker with 20 pack year history, currently vaping nicotine and THC for the past year with underlying asthma, lupus, IGNACIO, HTN, bipolar I, and DMII. She was referred by Neurology for pulmonary evaluation for asthma. Of note, she was also sent for in lab PSG for prior diagnosis IGNACIO and to assess nocturnal hypoxemia. She reports poorly controlled asthma for the past few years as she has been lost to follow up. Previously prescribed albuterol PRN with good effect. She reports chest tightness, dyspnea with or without exertion and occasional dry cough. She also notes paroxysmal nocturnal dyspnea. She reports asthma since adulthood, never requiring intubations. She reports seasonal allergies, no recent allergy testing. She has cats at home. She denies any prolonged occupational exposures. She reports h/o lupus, not under the care of rheumatology, no history of medications, reports skin rashes and joint point both small/large joints. [facility] Medical History Asthma Sleep apnea Migraine Sinusitis Breast pain, left Hypertension Sleep apnea Bipolar 1 disorder Depression Anxiety delivery delivered Diabetes Sciatica Kidney infection Kidney stones HTN (hypertension) Fibromyalgia Lupus Surgical History H/O section H/O: hysterectomy Family History Maternal Grandmother HTN (hypertension) Diabetes Cancer Other FH: mental illness Substance use Social History (Reviewed 09/19/23 @ 14:24 by MARTA Yu Housing: Apartment Alcohol intake: current Alcohol intake frequency: holidays/special occasions only Patient Tobacco Use Status: Former Tobacco user e-Cigarette/Vaping Use: Currently Using Substance Use Type: Marijuana service: Yes Current occupational status: employed 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 Current occupational exposures/hazards: No Cognitive needs: No Hearing needs: No Vision needs: Yes (glasses) Review of Systems Const Denies chills, Denies excessive sweating, Denies fever(s) and Denies night sweats Eyes Denies dry eyes, Denies irritation and Denies itchy eyes ENT Reports Normal hearing present, Denies nasal discharge and Denies sore throat Card Denies chest pain, Denies chest pain at rest, Denies chest pain with activity, Denies claudication, Denies leg edema and Denies orthopnea Resp Denies chest congestion, Denies excessive phlegm production, Denies pain on inspiration, Denies pain with cough, Denies stridor and Denies wheezing Musc Denies myalgias Neuro Reports Normal hearing present Endo Denies excessive sweating Kvng/Lymph Denies lymphadenopathy Aller/Immun Denies itchy eyes, Denies seasonal rhinorrhea and Denies wheezing Physical Exam Vital Signs: Last Vital Signs Pulse 77 09/19/23 14:22 BP 118/74 09/19/23 14:22 Pulse Ox 98 09/19/23 14:22 Oxygen Delivery Method Room Air 09/19/23 14:22 BMI result Body Mass Index 37.8 Const General: cooperative, healthy appearing, comfortable, no acute distress, well developed and alert Nutritional Appearance: obese Orientation/consciousness: patient oriented x3 Limitations: no limitations HEENT Head: Yes normal to inspection, Yes normocephalic and Yes atraumatic Ears: hearing grossly normal bilaterally and external ears normal Eyes General: appearance normal, both eyes and all related structures Eyelids: Yes eyelids normal Sclerae: sclerae normal EOM: EOMs intact bilaterally Neck Neck: Yes normal visual inspection and Yes no lymphadenopathy Lymphatic: no lymphadenopathy noted Chest Chest palpation & inspection: normal inspection of the chest Resp Effort & Inspection: normal respiratory effort, able to speak in complete sentences, no audible wheezes, no cough, no stridor, not tachypneic, no tripod positioning and no use of accessory muscles Auscultation: clear to auscultation bilaterally Cardio Jugular venous distension: no JVD Rate: regular rate Rhythm: regular rhythm Skin Other: warm, dry General skin exam: no rashes or lesions noted Neuro General: patient oriented x3 Cranial nerves: Yes Normal hearing present Cognition (Neuro): normal cognition Gait exam (Neuro): Normal gait present Extrem General: Yes normal to inspection, Yes capillary refill normal, Yes no clubbing, cyanosis or edema and Yes no pedal edema Psych Appearance: grossly normal and well kempt Speech and movement: Normal speech and movement present and Clear speech present Affect: normal affect Attitude: cooperative Thought process: Normal thought process present Thought content: Normal thought content present Insight: Good insight present (Psych) Judgement: Good judgement present (Psych) Results Reviewed Results Reviewed: [address] [address] [address] Scan Report Signed Patient: Linda Martinez MR#: [id number] : 1980 Acct:[id number] Age/Sex: 41 / F ADM Date: 06/19/22 Loc: .ED Attending Dr: Ordering Physician: Noel Desouza Date of Service: 06/19/22 Procedure(s): CT chest wo IV con Accession Number(s): [id number] cc: Noel Desouza~ EXAMINATION: CT chest without contrast, CT abdomen and pelvis with contrast. CLINICAL INFORMATION: Reason for Exam Right sided abdominal pain. Blood in stool COMPARISON: Prior CT December 2020 and October 2019 TECHNIQUE: Multidetector volumetric CT imaging of the chest abdomen and pelvis obtained Axial MIP volume rendering provided. Sagittal and coronal reformatted images were obtained. This CT examination was performed using dose optimization techniques as appropriate, variously including the following: *Automated exposure control *Adjustment of mA and/or kV according to patient size (this includes techniques or standardized protocols for targeted exams where dose is matched to indication/reason for exam; i.e. extremities or head) *Use of iterative reconstruction technique Reformatted coronal and sagittal imaging was performed. DLP: 478 mGy-cm FINDINGS: ARBORIST CLIMBER, LINES TUBES: Instrument Room Technician reviewed, no lines. LUNGS: Interstitial: No evidence of significant interstitial disease. Lung nodules: There are no significant lung nodules. AIRWAYS: Trachea and bronchi are normal. PLEURA: No pleural effusion or pneumothorax. MEDIASTINUM AND ASTER: The visualized thyroid gland is unremarkable. No mediastinal, hilar or axillary lymphadenopathy. There is no mediastinal mass. THORACIC AORTA: Thoracic aorta is normal in size. CHEST WALL, LOWER NECK, SURROUNDING SOFT TISSUES: Normal HEART AND PERICARDIUM: Heart is normal in size. There is no pericardial effusion. No coronary calcifications. HEPATOBILIARY: Diffusely hypodense liver suggesting hepatic steatosis unchanged. Redemonstration of the cystic structure anterior left lobe segment 4 measures up to 3.8 x 3.6 cm the attenuation of its matrix 23, this has not changed from prior exam. GALLBLADDER: Gallbladder unremarkable. SPLEEN: Spleen borderline enlarged 13.1 cm. Diffusely homogeneous. PANCREAS: No focal mass or ductal dilatation. GI TRACT: No distention or wall thickening. No CT evidence of appendicitis. ADRENALS: No adrenal nodules. KIDNEYS/URETERS: 3 mm nonobstructing stone middle calyx left kidney, kidneys otherwise are normal. No hydronephrosis. No hydronephrosis, stones or solid mass lesions. PELVIC ORGANS/BLADDER: Urinary bladder is decompressed unopacified grossly unremarkable. PERITONEUM: No free air or fluid. LYMPH NODES: no retroperitoneal or mesenteric lymphadenopathy. VASCULAR:Abdominal aorta normal in size, no aneurysm found. BONES, ABDOMINAL WALL AND SOFT TISSUES: Postsurgical changes anterior abdominal wall hernia repair hernia mesh in place. CT/CT chest wo IV con IMPRESSION: * No CT evidence of acute intra-abdominal process to explain patient's pain symptoms, no evidence of appendicitis, no bowel obstruction, no free air or fluid. * Redemonstration of a hypodense structure in the left lobe of the liver 3.8 cm unchanged from prior exam. The attenuation of its matrix is higher than simple cyst however not changed from prior exam. May consider evaluation with follow-up ultrasound. * Spleen borderline enlarged 13.1 cm. * Diffusely hypodense liver suggesting hepatic steatosis. * Tiny nonobstructing stone middle calyx left kidney. * Postsurgical changes anterior abdominal wall hernia repair. Dictated By: Buzz Horton MD Signed By: <Electronically signed by Buzz Horton MD in OV> 06/19/22 1635 DD/ 1534 TD/TT: Dental Specialist: HS Assessment & Plan Assessment & Plan (1) Asthma: Code(s): J45.909 - Unspecified asthma, uncomplicated Category: Medical (2) Environmental allergies: Code(s): Z91.09 - Other allergy status, other than to drugs and biological substances Category: Medical (3) History of sleep apnea: Code(s): Z86.69 - Personal history of other diseases of the nervous system and sense organs Category: Medical (4) Lupus: Code(s): M32.9 - Systemic lupus erythematosus, unspecified Category: Medical Plan Linda'jerson symptoms are likely related to asthma, unclear severity. Will send for PFT, RAST and empirically start on Flovent. Importance of oral hygiene reviewed. Reviewed chest CT which was unremarkable, no evidence of ILD. Patient reports prior diagnosis of lupus, persistent joint pain and skin rashes. Will send to rheumatology to reeastablish care. All questions were answered and patient is in agreement of plan. Will follow up to review response to inhaler and results or sooner if needed. Orders: Orders Resp Allergy Profile Region I 09/19/23 Z91.09 - Other allergy status, other than to drugs and biological substances Immunoglobulin E 09/19/23 Z91.09 - Other allergy status, other than to drugs and biological substances Complete Blood Count Auto Diff 09/19/23 J45.909 - Unspecified asthma, uncomplicated PFT pulmonary function test Today J45.909 - Unspecified asthma, uncomplicated Referrals Rheumatology Referral M32.9 - Systemic lupus erythematosus, unspecified Medications: New fluticasone propionate 113 mcg/actuation 1 inh inhalation BID 1 ea 3RF albuterol sulfate 90 mcg/actuation 2 puffs inhalation Q4-6H PRN 1 ea 3RF shortness of breath or wheezing Coding Level of Care Code New Pt Level 4 (63875) Diagnoses Asthma J45.909 Environmental allergies Z91.09 History of sleep apnea Z86.69 Lupus M32.9
[2023-09-19 14:22] VITALS: BP 118/74; PULSE 77; O2SAT 98; BMI 37.8
== END 2023-09-19 14:57 | disposition home or self-care (01) ==
PROVIDERS: PCP Nurse Practitioner Family; Visit Provider Nurse Practitioner Family
DX: J45.909 Unspecified asthma, uncomplicated (principal); Z91.09 Other allergy status, other than to drugs and biological substances; Z86.69 Personal history of other diseases of the nervous system and sense organs; M32.9 Systemic lupus erythematosus, unspecified
CPT/HCPCS: 99204

== ENCOUNTER → 2023-09-19 14:18 | Outpatient (BNVA) | payer OTHER, SELFPAY | PROVIDERS: PCP Nurse Practitioner Family; Visit Provider Nurse Practitioner Family | DX: J45.909 Unspecified asthma, uncomplicated (principal); M32.9 Systemic lupus erythematosus, unspecified; Z91.09 Other allergy status, other than to drugs and biological substances; Z86.69 Personal history of other diseases of the nervous system and sense organs | CPT/HCPCS: 99202 ==

== ENCOUNTER 2023-09-22 11:54 | Outpatient (REF) | payer OTHER, SELFPAY ==
--- NOTE | ~2023-09-22 | XR_ITS ---
EXAMINATION: Pelvic series. Sacroiliac joint series CLINICAL INFORMATION: Sacrococcygeal disorders COMPARISON: X-ray the pelvis and hips July 2021. CT scan of the abdomen and pelvis May 2023 TECHNIQUE: Single view the pelvis and 3 views of the sacroiliac joints FINDINGS: Pelvis and sacroiliac joints: Sacroiliac joints normal. Remaining bone and joints in the pelvis normal. Postsurgical changes overlying the mid abdomen unchanged. XR/XR hip BI w PEL1V IMPRESSION: 1. Normal sacroiliac joints. 2. Postsurgical changes overlying the abdomen unchanged.
--- NOTE | ~2023-09-22 | XR_ITS ---
EXAMINATION: Pelvic series. Sacroiliac joint series CLINICAL INFORMATION: Sacrococcygeal disorders COMPARISON: X-ray the pelvis and hips July 2021. CT scan of the abdomen and pelvis May 2023 TECHNIQUE: Single view the pelvis and 3 views of the sacroiliac joints FINDINGS: Pelvis and sacroiliac joints: Sacroiliac joints normal. Remaining bone and joints in the pelvis normal. Postsurgical changes overlying the mid abdomen unchanged. XR/XR sacroiliac joint min 3V IMPRESSION: 1. Normal sacroiliac joints. 2. Postsurgical changes overlying the abdomen unchanged.
[2023-09-22 12:19] LABS: MANUAL DIFF FLAG NO
[2023-09-22 12:40] LABS: Basophils Percent Auto 0.4 % (0-2); Eosinophils Absolute Auto 0.2 X10*3/uL (0.0-0.4); Eosinophils Percent Auto 2.2 % (0-4); Hematocrit 42.4 % (37.0-47.0); Hemoglobin 14.9 g/dl (12.0-16.0); Imm Gran Abs Auto 0.04 X10*3/uL (0.00-0.03); Imm Gran Pct Auto 0.5 % (0.0-0.4); Lymphocytes Absolute Auto 1.9 X10*3/uL (1.2-4.9); Lymphocytes Percent Auto 24.4 % (20-40); Mean Corpuscular HGB Conc 35.1 g/dl (31.0-35.0); Mean Corpuscular Hemoglobin 30.5 pg (27.0-33.0); Mean Corpuscular Volume 86.7 fL (80.0-98.0); Mean Platelet Volume 9.5 fL (9.4-12.3); Monocytes Absolute Auto 0.5 X10*3/uL (0.1-1.2); Monocytes Percent Auto 6.9 % (2-11); Neutrophils Percent Auto 65.6 % (45-73); Platelet Count 288 X10*3/uL (160-400); Red Blood Count 4.89 X10*6/uL (4.20-5.50); Red Cell Distribution Width 13.5 % (11.0-16.0); White Blood Count 7.6 X10*3/uL (4.8-10.8)
[2023-09-26 17:08] LABS: Class Alternaria alternata 0; Class Aspergillus fumigatus 0; Class Bermuda Grass 0; Class Birch 0; Class Cat Dander 0; Class Cladosporium herbarum 0; Class Cockroach 0; Class Common Ragweed 0; Class Cottonwood 0; Class Derm. pterony 0/1; Class Dermatophagoides farinae 0/1; Class Dog Dander 0; Class Elm 0; Class Maple Box Elder 0; Class Mountain Cedar 0; Class Mouse Urine Protein 0; Class Mugwort 0; Class Oak 0; Class Penicillium crysogenum 0; Class Rough Pigweed 0; Class Sheep Sorrel 0; Class Sycamore 0; Class Timothy Grass 0; Class Walnut Tree 0; Class White Ash 0; Class White Mulberry 0; D001 IgE D pteronyssinus 0.15 kU/L; D002 - IgE D farinae 0.11 kU/L; E001 - IgE Cat Dander <0.10 kU/L; E005 - IgE Dog Dander <0.10 kU/L; E072-IgE Mouse Urine <0.10 kU/L; G002 IgE Bermuda Grass <0.10 kU/L; G006 - IgE Timothy Grass <0.10 kU/L; I006-IgE Cockroach, German <0.10 kU/L; Immunoglobulin E 38 kU/L (<OR=114); M001 IgE Penicillium chrysogen <0.10 kU/L; M002 - IgE Cladosporium herbar <0.10 kU/L; M003 - IgE Aspergillus fumigat <0.10 kU/L; M006 - IgE Alternaria alternat <0.10 kU/L; T001 IgE Maple/Box Elder <0.10 kU/L; T003 IgE Common Silver Birch <0.10 kU/L; T006 - IgE Cedar, Mountain <0.10 kU/L; T007 - IgE Oak, White <0.10 kU/L; T008 IgE Elm, American <0.10 kU/L; T010 - IgE Walnut <0.10 kU/L; T011 - IgE Maple Leaf Sycamore <0.10 kU/L; T014 - IgE Cottonwood <0.10 kU/L; T015 - IgE Ash, White <0.10 kU/L; T070 - IgE White Mulberry <0.10 kU/L; W001 - IgE Ragweed, Short <0.10 kU/L; W006 - IgE Mugwort <0.10 kU/L; W014 IgE Pigweed, Common <0.10 kU/L; W018 IgE Sheep Sorrel <0.10 kU/L
== END 2023-09-22 11:55 | disposition home or self-care (01) ==
LOC: HO.XRAY 11:54
PROVIDERS: Nurse Practitioner Family; Absent Provider Nurse Practitioner Family; PCP Nurse Practitioner Family; Visit Provider Nurse Practitioner Family
DX: Z91.09 Other allergy status, other than to drugs and biological substances (principal); J45.909 Unspecified asthma, uncomplicated; M53.3 Sacrococcygeal disorders, not elsewhere classified; M54.50 Low back pain, unspecified; M25.551 Pain in right hip; M25.552 Pain in left hip; M70.61 Trochanteric bursitis, right hip; M70.62 Trochanteric bursitis, left hip
CPT/HCPCS: 36415; 72202; 73521; 82785; 85025; 86003

== ENCOUNTER → 2023-09-24 20:30 | Outpatient (REF) | payer OTHER, SELFPAY | LOC: HO.SL 20:30 | PROVIDERS: PCP Nurse Practitioner Family; Visit Provider Nurse Practitioner Family | DX: G47.33 Obstructive sleep apnea (adult) (pediatric) (principal); G47.19 Other hypersomnia; G47.50 Parasomnia, unspecified; R06.00 Dyspnea, unspecified; G25.81 Restless legs syndrome | CPT/HCPCS: 95810 ==

== ENCOUNTER → 2023-09-24 20:30 | Outpatient (BNV) | payer OTHER, SELFPAY | PROVIDERS: PCP Nurse Practitioner Family; Visit Provider Psychiatry & Neurology Neurology | DX: G47.33 Obstructive sleep apnea (adult) (pediatric) (principal) | CPT/HCPCS: 95810 ==

== ENCOUNTER 2023-10-06 09:04 | Emergency (ER) | payer OTHER, SELFPAY ==
--- NOTE | ~2023-10-06 | XR_ITS ---
EXAMINATION: XR CHEST XR KUB CLINICAL INFORMATION: Fever. URI. Constipation. COMPARISON: 08/08/2023 and 06/29/2021 TECHNIQUE: 2 views of the chest were obtained. AP view of the abdomen was obtained. FINDINGS: The lungs are well expanded. No focal consolidation. No pleural effusion. Cardiac silhouette is within normal limits. Status post ventral hernia repair with surgical mesh projecting over the lower abdomen. Nonspecific bowel gas pattern with overall paucity of intestinal gas. No significant stool burden is appreciated. XR/XR chest 2V IMPRESSION: Unremarkable examination.
--- NOTE | ~2023-10-06 | XR_ITS ---
EXAMINATION: XR CHEST XR KUB CLINICAL INFORMATION: Fever. URI. Constipation. COMPARISON: 08/08/2023 and 06/29/2021 TECHNIQUE: 2 views of the chest were obtained. AP view of the abdomen was obtained. FINDINGS: The lungs are well expanded. No focal consolidation. No pleural effusion. Cardiac silhouette is within normal limits. Status post ventral hernia repair with surgical mesh projecting over the lower abdomen. Nonspecific bowel gas pattern with overall paucity of intestinal gas. No significant stool burden is appreciated. XR/XR KUB IMPRESSION: Unremarkable examination.
[2023-10-06 09:10] VITALS: BP 152/99; PULSE 93; RESP 18; TEMP 36.5; O2SAT 99; BMI 38.1
--- NOTE | 2023-10-06 09:36 | ED_ITS ---
HPI - URI/Sore Throat General Chief Complaint: Fever Stated Complaint: fever body aches Time Seen by Provider: 10/06/23 09:11 Source: patient Mode of arrival: ambulatory Limitations: no limitations History of Present Illness HPI Narrative: patient is a 42-year-old female who presents to the emergency department for evaluation. She reports that her son tested positive for COVID - 19 last Monday. She began having symptoms approximately 6 days ago. 5 days ago she tested positive for COVID - 19 at home. She continues to report that she is having intermittent fevers, chills, body aches, nausea with infrequent vomiting, cough, sore throat, pain to the lower gumline on the left side she feels radiating to. She has dentures present in states that she has an ulcer beneath there that is very painful. She has been taking minimal oral intake, consuming primarily soups. She states that she has been maintaining hydration. reports feeling constipated with last week ago. She is trialed Tylenol ibuprofen and various cold medications [id number] with symptomatic improvement her symptoms return after a few hours. Denies headache, dizziness lightheadedness, neck pain, neck stiffness, chest pain. Related Data Home Medications ?Medication ?Instructions ?Recorded ?Confirmed clonazepam 1 mg tablet 1 mg PO BEDTIME PRN anxiety 08/08/23 09/08/23 bupropion HCl 300 mg 24 hr tablet, 300 mg PO DAILY 09/08/23 09/12/23 extended release sumatriptan succinate 100 mg See Rx Instructions PO .COMPLEX 09/08/23 09/12/23 tablet (Imitrex) ibuprofen 200 mg tablet (IBU-200) 400 mg PO Q8H 09/19/23 Previous Rx's ?Medication ?Instructions ?Recorded albuterol sulfate 90 mcg/actuation 1 inh inhalation QID PRN shortness 07/20/20 aerosol inhaler of breath or wheezing #8.5 grams blood sugar diagnostic (FreeStyle #100 ea 07/20/20 Lite Strips) blood-glucose meter (FreeStyle #1 ea 07/20/20 Jerome Lite kit) lancets 28 gauge (FreeStyle #100 ea 07/20/20 Lancets) acetaminophen 500 mg tablet 1,000 mg (2 x 500 mg) PO Q8H PRN 08/01/23 (Tylenol Extra Strength) back pain #60 tabs ketorolac 10 mg tablet 10 mg PO DAILY #3 tabs 08/08/23 fluticasone propionate 50 1 spray intranasal BID #16 grams 09/08/23 mcg/actuation nasal spray,suspension lisinopril 5 mg tablet 5 mg PO DAILY #90 tabs 09/08/23 metformin 750 mg tablet,extended 750 mg PO BID #180 tabs 09/08/23 release 24 hr metoprolol tartrate 25 mg tablet 12.5 mg (1/2 x 25 mg) PO BID 30 09/08/23 days #90 tabs omeprazole 20 mg capsule,delayed 20 mg PO DAILY #90 caps 09/08/23 release lidocaine 5 % topical patch 1 patch topical DAILY 30 days #30 09/14/23 ea tizanidine 4 mg tablet 4 mg PO BID PRN muscle spasm #60 09/14/23 tabs albuterol sulfate 90 mcg/actuation 2 puff inhalation Q4-6H PRN 09/19/23 aerosol inhaler shortness of breath or wheezing #1 ea fluticasone propionate 113 1 inh inhalation BID #1 ea 09/19/23 mcg/actuation breath activated pwdr inhal,sensor benzonatate 200 mg capsule 200 mg PO TID PRN cough #20 caps 10/06/23 lidocaine HCl 2 % mucosal solution 1 appl mucous membrane TID PRN 10/06/23 (Lidocaine Viscous) pain #100 mL Allergies Allergy/AdvReac Type Severity Reaction Status Date / Time hydrocodone [From VICODIN] Allergy Mild HIVES Verified 10/06/23 09:12 oxycodone [From PERCOCET] Allergy Mild HIVES Verified 10/06/23 09:12 azithromycin [AZITHROMYCIN] Allergy Unknown NAUSEA & Verified 10/06/23 09:12 VOMITING erythromycin base Allergy Unknown NAUSEA & Verified 10/06/23 09:12 [From ERYTHROCIN] VOMITING Review of Systems Review of Systems: Yes all other systems are reviewed and are negative PMFSH Past Medical History Attestation statement: The following information was validated with the patient. Source: old records reviewed Medical History Asthma Sleep apnea Migraine Sinusitis Breast pain, left Hypertension Sleep apnea Bipolar 1 disorder Depression Anxiety delivery delivered Diabetes Sciatica Kidney infection Kidney stones HTN (hypertension) Fibromyalgia Lupus Surgical History H/O section H/O: hysterectomy Family History Family History Maternal Grandmother HTN (hypertension) Diabetes Cancer Other FH: mental illness Substance use Social History Social History Housing: Apartment Alcohol intake: current Alcohol intake frequency: holidays/special occasions only Patient Tobacco Use Status: Former Tobacco user e-Cigarette/Vaping Use: Currently Using Substance Use Type: Marijuana Advance Directives: Yes Advance Directives Information Provided: Yes Advance Directives on File: No Do you have a plan to hurt others: No Plan service: Yes Current occupational status: employed 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 No acute distress.?Normal affect. Eyes: Pupils equal, round and reactive to light.? ENT: TM normal bilaterally. Pharynx normal.?? lower left gingival ridge with small aphthous ulceration Neck: Normal inspection.? Neck supple.??No cervical adenopathy CVS: Heart sounds normal. Normal heart rate and rhythm.? Pulses normal.?? Respiratory: No respiratory distress.? Lung sounds clear to auscultation bilaterally?? Abdomen: Soft and non-tender. Normoactive bowel sounds. Skin: Skin warm and dry.? Normal skin color.? ? Extremities: No lower extremity edema.? Neuro: Moves all extremities spontaneously. Sensation intact bilaterally. No motor deficits. Ambulates with normal steady gait. Medical Decision Making Medical Decision Making MDM Narrative: Patient is a 42-year-old female who is known COVID - 19 positive, presenting for evaluation of persistent upper respiratory symptoms mouth ulcer constipation. COVID-19 testing is positive. At this time history and physical exam not consistent with ACS/PE. CXR was obtained to evaluate for infiltrate/consolidation, pain is without acute pathology Well-appearing, nontoxic, afebrile, no tachycardia or tachypnea/hypoxia. Speaking clear full sentences, ambulatory with steady gait. abdominal examination is benign, clinically low suspicion acute intra-abdominal pathology/surgical abdomen, suspect that her sensation of constipation or rather lack of movement is due to her limited oral intake. KUB was obtained is no significant appreciated. Discussed conservative treatment including rest, hydration, Tylenol/ibuprofen as needed for fever and body aches, saline nasal spray, humidifier, vbxq-xic-xxefsyq cold medication. discussed at this a laceration and treatment including oral hygiene discussed refraining from denture usage days to allow this to this may be to an ill-fitting denture, she admits that she has had them for 18 years, it has lately felt like she does need to be refitted for set, will provide viscous lidocaine for swish and home. Advised to follow-up with primary care provider as needed, discussed reasons to return back to the emergency department. All questions were answered. Patient discharged home in stable condition. Differential Diagnosis Differential Diagnoses: The differential diagnosis associated with the presentation includes ( See narrative above) Admission/Observation Consideration of admission/observation: Escalation of care including admission/observation considered ( see narrative above) Lab Data MDM Lab Attestation statement: I reviewed the patient's lab results. ( see narrative above) Labs: Lab Results 10/06/23 10/06/23 Range/Units 09:26 09:27 Influenza Type A (PCR) NEGATIVE (Negative) Influenza Type B (PCR) NEGATIVE (Negative) RSV RNA Qual (PCR) NEGATIVE (Negative) SARS-CoV-2 RNA (RT-PCR) POSITIVE A (Negative) S. pyogenes GrpA FRANCIA Negative (Negative) Independent Interpretation I performed an independent interpretation of an: Plain X-Ray ( see narrative above) Radiology Impression Discussion of test interpretation with radiology: I have reviewed the radiologist's reading. Radiologist Impression: XR/XR chest 2V IMPRESSION: Unremarkable examination. XR/XR KUB IMPRESSION: Unremarkable examination. Prescription Management I considered prescription management with: Pain Medication ( acetaminophen/ibuprofen) Discharge Plan Discharge Clinical Impression: COVID-19, Aphthous ulcer Patient Disposition: Home, Self-Care Instructions: Canker Sores (ED), COVID-19 (Coronavirus Disease 2019) (ED) Additional Instructions: Your COVID- 19 test remains positive today Be sure to rest, stay well hydrated drinking plenty of fluids, eat small frequent meals. Tylenol/ibuprofen can be used as needed for fever/pain. Nicb-zly-nxjdbko cold medications may be helpful as well for symptoms. Saline nasal spray, humidifier may be helpful for nasal congestion. You may return to the emergency department with any new or worsening symptoms or concerns. Follow-up with your primary care provider as needed. Should remain out of school/ work until symptoms have resolved and have been without a fever for 24 hours without the use of Tylenol or ibuprofen. as discussed, consider refraining from wearing your lower denture for a few days to allow this ulcer to feel viscous lidocaine applied directly to the surface of the ulcer or as a swish and spit mouth. If this continues to be problematic you may consider being re-evaluated by your dental provider to be refitted for possibly new dentures Prescriptions: New lidocaine HCl [Lidocaine Viscous] 2 % solution 1 appl mucous membrane TID PRN (Reason: pain) Qty: 100 0RF benzonatate 200 mg capsule 200 mg PO TID PRN (Reason: cough) Qty: 20 0RF No Action albuterol sulfate 90 mcg/actuation HFA aerosol inhaler 1 inh inhalation QID PRN (Reason: shortness of breath or wheezing) Qty: 8.5 0RF (DME) blood-glucose meter [FreeStyle Jerome Lite] Kit See Rx Instructions .ROUTE .MEDSUPPLY Qty: 1 0RF Rx Instructions: As directed (DME) FreeStyle Lite Strips Strip See Rx Instructions .ROUTE .MEDSUPPLY Qty: 100 0RF Rx Instructions: As directed (DME) lancets [FreeStyle Lancets] 28 gauge misc See Rx Instructions .ROUTE .MEDSUPPLY Qty: 100 0RF Rx Instructions: As directed acetaminophen [Tylenol Extra Strength] 500 mg tablet 1,000 mg PO Q8H PRN (Reason: back pain) Qty: 60 0RF clonazepam 1 mg tablet 1 mg PO BEDTIME PRN (Reason: anxiety) ketorolac 10 mg tablet 10 mg PO DAILY Qty: 3 0RF Rx Instructions: maximum total duration of 5 days from all oral, intranasal, or parenteral formulations bupropion HCl 300 mg tablet extended release 24 hr 300 mg PO DAILY sumatriptan succinate [Imitrex] 100 mg tablet See Rx Instructions PO .COMPLEX Rx Instructions: take 1 tab at onset of headache; if no relief, may repeat 1 tab after at least 2 hrs; max = 2 tabs/24 hrs PO metformin 750 mg tablet extended release 24 hr 750 mg PO BID Qty: 180 0RF metoprolol tartrate 25 mg tablet 12.5 mg PO BID 30 Days Qty: 90 0RF omeprazole 20 mg capsule,delayed release(DR/EC) 20 mg PO DAILY Qty: 90 0RF fluticasone propionate 50 mcg/actuation spray,suspension 1 spray intranasal BID Qty: 16 0RF Rx Instructions: administer into each nostril lisinopril 5 mg tablet 5 mg PO DAILY Qty: 90 0RF ibuprofen [IBU-200] 200 mg tablet 400 mg PO Q8H albuterol sulfate 90 mcg/actuation HFA aerosol inhaler 2 puff inhalation Q4-6H PRN (Reason: shortness of breath or wheezing) Qty: 1 3RF fluticasone propionate 113 mcg/actuation aero powdr breath act w/sensor 1 inh inhalation BID Qty: 1 3RF tizanidine 4 mg tablet 4 mg PO BID PRN (Reason: muscle spasm) Qty: 60 0RF lidocaine 5 % adhesive patch,medicated 1 patch topical DAILY 30 Days Qty: 30 0RF Rx Instructions: leave on most painful area for up to 12 hrs Referrals: Minerva Zuleta, ORTHOPEDIC MECHANIC-BC [Primary Care Provider] - Print Language: Australian
[2023-10-06 09:49] LABS: IDNOW Serial# 58CA691E; Strep A Nucleic Acid Negative (Negative)
[2023-10-06 10:10] LABS: Influenza A PCR NEGATIVE (Negative); Influenza B PCR NEGATIVE (Negative); Resp Syncy Virus RNA Qual PCR NEGATIVE (Negative); SARS COV2 PCR INHOUSE POSITIVE (Negative)
[2023-10-06 10:51] VITALS: BP 155/95; PULSE 89; RESP 20; TEMP 36.6; O2SAT 99
== END 2023-10-06 10:52 | disposition home or self-care (01) ==
PROVIDERS: Emergency Provider Emergency Medicine; PCP Nurse Practitioner Family
DX: U07.1 COVID-19 (principal); K12.0 Recurrent oral aphthae; R50.9 Fever, unspecified; M79.10 Myalgia, unspecified site; Z79.899 Other long term (current) drug therapy
CPT/HCPCS: 0241U; 71046; 74018; 87651; 99283; 99284

== ENCOUNTER 2023-10-17 09:32 | Outpatient (REF) | payer OTHER, SELFPAY ==
--- NOTE | ~2023-10-17 | MM_ITS ---
EXAMINATION: MM SCREENING DIGITAL BREAST TOMOSYNTHESIS, BILATERAL CLINICAL INFORMATION: Screening. Asymptomatic. COMPARISON: Mammography: This is a baseline mammogram TECHNIQUE: Digital breast tomosynthesis is performed in both the craniocaudal and mediolateral oblique views along with computer-aided detection (CAD). Synthesized 2D images are generated from the tomosynthesis. FINDINGS: There are scattered areas of fibroglandular density (ACR BI-RADS breast composition Category b). There are grouped calcifications in the upper outer quadrant of the right breast. These warrant additional mammographic imaging with magnification. In the left breast, there are no significant masses, abnormal calcifications, or other abnormalities. MM/MM tomosynthesis screening BI IMPRESSION: Grouped calcifications in the right breast warrant additional mammographic imaging with magnification. No mammographic signs of malignancy left breast. ASSESSMENT: BI-RADS BI-RADS 0 - Incomplete: Needs additional Imaging. RECOMMENDATION: Additional views of the right breast. Radiology department staff will contact the patient for additional imaging. Additional Imaging required This examination should not preclude the clinical evaluation of a suspicious palpable abnormality. This patient's information was entered into a reminder system with a target due date for their next mammogram.
--- NOTE | ~2023-10-17 | MM_ITS ---
EXAMINATION: BONE DENSITOMETRY CLINICAL INDICATION: Asymptomatic menopausal state. COMPARISON: This is the patient's baseline examination. TECHNIQUE: Using a LIQUITY DXA System (software version: 13.1) manufactured by [employer], dual-energy x-ray absorptiometry was performed of the lumbar spine and left hip. The images are of good technical quality. Summary results are attached. FINDINGS: LEFT FEMUR, NECK: BMD 1.085 g/cm2, Z-score 0.1, T-score 0.3, normal. LEFT FEMUR, TOTAL: BMD 1.363 g/cm2, Z-score 2.3, T-score 2.8, normal. AP SPINE L1-L4: BMD 1.328 g/cm2, Z-score 0.2, T-score 1.2, normal. IDENTIFIED RISK FACTORS: Early menopause, secondary osteoporosis, bilateral oophorectomy, hysterectomy. HISTORY OF FRACTURE: None listed. MEDICATIONS: None listed. MM/XR DEXA axial skeleton IMPRESSION: 1. DIAGNOSIS: Normal bone density based on the lowest T-score value of 0.3 in the femoral neck applying World Health Organization criteria. 2. 10-YEAR FRACTURE RISK PREDICTION, FRAX: According to the guidelines, FRAX calculation should only be performed on patients in the osteopenia bone density category. Therefore, FRAX was not performed on this patient. 3. Treatment Recommendations: NOF guidelines recommend consideration for treatment in postmenopausal women and men age 50 and older presenting with the following: -A hip or vertebral (clinical or morphometric) fracture. -T-score less than or equal to -2.5 at the femoral neck or spine after appropriate evaluation to exclude secondary causes. -Low bone mass at the hip or spine and a 10-year fracture probability by FRAX of greater than or equal to 3% for hip fracture or greater than or equal to 20% for major osteoporotic fracture based on the [place] adapted WHO algorithm. 4. Other Recommendations: All treatment decisions require clinical judgment and consideration of individual patient factors, including patient preferences, comorbidities, previous drug use, risk factors not captured in the FRAX model (e.g. frailty, falls, vitamin D deficiency, increased bone turnover, interval significant decline in bone density) and possible under or overestimation of fracture risk by FRAX. FUTURE SCAN RECOMMENDATION: People with diagnosed cases of osteoporosis or at high risk for fracture should have regular bone mineral density tests. For patients eligible for Medicare, routine testing is allowed once every 2 years. The testing frequency can be increased to one year for patients who have rapidly progressing disease, those who are receiving or discontinuing medical therapy to restore bone mass, or have additional risk factors.
== END 2023-10-17 09:33 | disposition home or self-care (01) ==
LOC: HO.MAMMO 09:32
PROVIDERS: PCP Nurse Practitioner Family; Visit Provider Nurse Practitioner Family
DX: Z12.31 Encounter for screening mammogram for malignant neoplasm of breast (principal); Z13.820 Encounter for screening for osteoporosis; Z78.0 Asymptomatic menopausal state
CPT/HCPCS: 77063; 77067; 77080

== ENCOUNTER → 2023-10-17 09:45 | Outpatient (BNV) | payer OTHER, SELFPAY | PROVIDERS: PCP Nurse Practitioner Family; Visit Provider Radiology Diagnostic Radiology | DX: Z12.31 Encounter for screening mammogram for malignant neoplasm of breast (principal) | CPT/HCPCS: 77063; 77067 ==

== ENCOUNTER 2023-11-15 11:26 | Outpatient (AMB) | payer OTHER, SELFPAY ==
--- NOTE | 2023-11-15 11:35 | A.OFFVIS_ITS ---
Vital Signs 11/15/23 11:36 Height 5 ft 3 in Weight 209 lb 4 oz BMI 37.1 BP 140/88 H Blood Pressure Location Lt brachial Position Sitting Pulse 72 Pulse Source Pulse Oximeter Pulse Oximetry (%) 99 Oxygen Delivery Method Room Air Intake Visit Reasons: Asthma Allergies hydrocodone [From VICODIN] Allergy (Mild, Verified 11/15/23 11:38) HIVES oxycodone [From PERCOCET] Allergy (Mild, Verified 11/15/23 11:38) HIVES azithromycin [AZITHROMYCIN] Allergy (Unknown, Verified 11/15/23 11:38) NAUSEA & VOMITING erythromycin base [From ERYTHROCIN] Allergy (Unknown, Verified 11/15/23 11:38) NAUSEA & VOMITING HPI HPI Asthma: Details: Linda is a pleasant 43 year old, former smoker with 20 pack year history, currently vaping nicotine and THC for the past year with underlying asthma, lupus, IGNACIO, HTN, bipolar I, and DMII. At the last visit, ICS was sent in as she reported chest tightness, dyspnea with or without exertion and occasional dry cough, minimally relieved by albuterol. Unfortunately she has yet to start. She was also sent for PFT however this has yet to be scheduled. Today she presents to review RAST. [facility] Medical History Asthma Sleep apnea Migraine Sinusitis Breast pain, left Hypertension Sleep apnea Bipolar 1 disorder Depression Anxiety delivery delivered Diabetes Sciatica Kidney infection Kidney stones HTN (hypertension) Fibromyalgia Lupus Surgical History H/O section H/O: hysterectomy Family History Maternal Grandmother HTN (hypertension) Diabetes Cancer Other FH: mental illness Substance use Social History Housing: Apartment Alcohol intake: never Patient Tobacco Use Status: Former Tobacco user e-Cigarette/Vaping Use: Currently Using Substance Use Type: Marijuana service: Yes Current occupational status: employed 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 Current occupational exposures/hazards: No Cognitive needs: No Hearing needs: No Vision needs: Yes (glasses) Review of Systems Const Denies chills, Denies excessive sweating, Denies fever(s) and Denies night sweats Eyes Denies dry eyes, Denies irritation and Denies itchy eyes ENT Reports Normal hearing present, Denies nasal discharge and Denies sore throat Card Denies chest pain, Denies chest pain at rest, Denies chest pain with activity, Denies claudication, Denies leg edema and Denies orthopnea Resp Denies chest congestion, Denies excessive phlegm production, Denies pain on inspiration, Denies pain with cough and Denies stridor Musc Denies myalgias Neuro Reports Normal hearing present Endo Denies excessive sweating Kvng/Lymph Denies lymphadenopathy Aller/Immun Denies itchy eyes and Denies seasonal rhinorrhea Physical Exam Vital Signs: Last Vital Signs Pulse 72 11/15/23 11:36 BP 140/88 H 11/15/23 11:36 Pulse Ox 99 11/15/23 11:36 Oxygen Delivery Method Room Air 11/15/23 11:36 BMI result Body Mass Index 37.1 Const General: cooperative, healthy appearing, comfortable, no acute distress, well developed and alert Nutritional Appearance: obese Orientation/consciousness: patient oriented x3 Limitations: no limitations HEENT Head: Yes normal to inspection, Yes normocephalic and Yes atraumatic Ears: hearing grossly normal bilaterally and external ears normal Eyes General: appearance normal, both eyes and all related structures Eyelids: Yes eyelids normal Sclerae: sclerae normal EOM: EOMs intact bilaterally Neck Neck: Yes normal visual inspection and Yes no lymphadenopathy Lymphatic: no lymphadenopathy noted Chest Chest palpation & inspection: normal inspection of the chest Resp Effort & Inspection: normal respiratory effort, able to speak in complete sentences, no audible wheezes, no cough, no stridor, not tachypneic, no tripod positioning and no use of accessory muscles Auscultation: clear to auscultation bilaterally Cardio Jugular venous distension: no JVD Rate: regular rate Rhythm: regular rhythm Skin Other: warm, dry General skin exam: no rashes or lesions noted Neuro General: patient oriented x3 Cranial nerves: Yes Normal hearing present Cognition (Neuro): normal cognition Gait exam (Neuro): Normal gait present Extrem General: Yes normal to inspection, Yes capillary refill normal, Yes no clubbing, cyanosis or edema and Yes no pedal edema Psych Appearance: grossly normal and well kempt Speech and movement: Normal speech and movement present and Clear speech present Affect: normal affect Attitude: cooperative Thought process: Normal thought process present Thought content: Normal thought content present Insight: Good insight present (Psych) Judgement: Good judgement present (Psych) Assessment & Plan Assessment & Plan (1) Asthma: Code(s): J45.909 - Unspecified asthma, uncomplicated Category: Medical (2) Environmental allergies: Code(s): Z91.09 - Other allergy status, other than to drugs and biological substances Category: Medical (3) History of sleep apnea: Code(s): Z86.69 - Personal history of other diseases of the nervous system and sense organs Category: Medical (4) Lupus: Code(s): M32.9 - Systemic lupus erythematosus, unspecified Category: Medical Plan Linda's symptoms are likely related to asthma, unclear severity, awaiting PFT to be scheduled. 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 Reviewed RAST which was positive to dust mites, discussed ways to minimize exposures. All questions were answered and patient is in agreement of plan. Will follow up to review response to inhaler and results or sooner if needed. Medications: Refilled fluticasone propionate 113 mcg/actuation 1 inh inhalation BID 1 ea 3RF Coding Level of Care Code Est Pt Level 3 (68578) Diagnoses Asthma J45.909 Environmental allergies Z91.09 History of sleep apnea Z86.69 Lupus M32.9
[2023-11-15 11:36] VITALS: BP 140/88; PULSE 72; O2SAT 99; BMI 37.1
== END 2023-11-15 12:14 | disposition home or self-care (01) ==
PROVIDERS: PCP Nurse Practitioner Family; Visit Provider Nurse Practitioner Family
DX: J45.909 Unspecified asthma, uncomplicated (principal); Z91.09 Other allergy status, other than to drugs and biological substances; Z86.69 Personal history of other diseases of the nervous system and sense organs; M32.9 Systemic lupus erythematosus, unspecified
CPT/HCPCS: 99213

== ENCOUNTER → 2023-11-15 11:26 | Outpatient (BNVA) | payer OTHER, SELFPAY | PROVIDERS: PCP Nurse Practitioner Family; Visit Provider Nurse Practitioner Family | DX: J45.909 Unspecified asthma, uncomplicated (principal); M32.9 Systemic lupus erythematosus, unspecified; Z91.09 Other allergy status, other than to drugs and biological substances; Z86.69 Personal history of other diseases of the nervous system and sense organs | CPT/HCPCS: 99212 ==

== ENCOUNTER 2023-11-17 13:43 | Emergency (ER) | payer OTHER, SELFPAY ==
--- NOTE | ~2023-11-17 | XR_ITS ---
EXAMINATION: XR CHEST 2 VIEW CLINICAL INFORMATION: Chest pain COMPARISON: 10/06/2023 TECHNIQUE: PA and lateral views of the chest obtained. FINDINGS: The lungs are clear. There are no pleural effusions. The cardiomediastinal silhouette is normal. XR/XR chest 2V IMPRESSION: No acute cardiopulmonary disease.
[2023-11-17 14:23] VITALS: BP 130/85; PULSE 84; RESP 18; TEMP 36.8; O2SAT 97; BMI 36.9
--- NOTE | 2023-11-17 14:28 | ED_ITS ---
HPI - General Adult General Chief complaint: General Medical Stated complaint: BP high, bloody nose on and off Time Seen by Provider: 11/17/23 20:48 History of Present Illness ED Provider: Ann Marie DANIELLE narrative: The patient is a 43-year-old female who has a history of hypertension and type 2 diabetes. She also has a history of a [facility] BSO. She says that for the last 2 days she has had dizziness and nausea and lightheadedness. She says that she feels as if she is hung over or use too much marijuana but she has had no alcohol or marijuana during these last 2 days. She says that a couple of weeks ago she had a lot of GI symptoms after eating some deli meat and she thought perhaps she experienced listeria. Last night after getting home from work she had a spontaneous nosebleed. This morning she had another spontaneous nosebleed and felt dizzy and called out of work. She came to the hospital. Related Data Home Medications ?Medication ?Instructions ?Recorded ?Confirmed clonazepam 1 mg tablet 1 mg PO BEDTIME PRN anxiety 08/08/23 09/08/23 bupropion HCl 300 mg 24 hr tablet, 300 mg PO DAILY 09/08/23 09/12/23 extended release sumatriptan succinate 100 mg See Rx Instructions PO .COMPLEX 09/08/23 09/12/23 tablet (Imitrex) ibuprofen 200 mg tablet (IBU-200) 400 mg PO Q8H 09/19/23 Previous Rx's ?Medication ?Instructions ?Recorded albuterol sulfate 90 mcg/actuation 1 inh inhalation QID PRN shortness 07/20/20 aerosol inhaler of breath or wheezing #8.5 grams blood sugar diagnostic (FreeStyle #100 ea 07/20/20 Lite Strips) blood-glucose meter (FreeStyle #1 ea 07/20/20 [place] Lite kit) lancets 28 gauge (FreeStyle #100 ea 07/20/20 Lancets) acetaminophen 500 mg tablet 1,000 mg (2 x 500 mg) PO Q8H PRN 08/01/23 (Tylenol Extra Strength) back pain #60 tabs fluticasone propionate 50 1 spray intranasal BID #16 grams 09/08/23 mcg/actuation nasal spray,suspension lisinopril 5 mg tablet 5 mg PO DAILY #90 tabs 05/31/24 metformin 750 mg tablet,extended 750 mg PO BID #180 tabs 09/08/23 release 24 hr metoprolol tartrate 25 mg tablet 12.5 mg (1/2 x 25 mg) PO BID 30 09/08/23 days #90 tabs omeprazole 20 mg capsule,delayed 20 mg PO DAILY #90 caps 09/08/23 release lidocaine 5 % topical patch 1 patch topical DAILY 30 days #30 09/14/23 ea tizanidine 4 mg tablet 4 mg PO BID PRN muscle spasm #60 09/14/23 tabs albuterol sulfate 90 mcg/actuation 2 puff inhalation Q4-6H PRN 09/19/23 aerosol inhaler shortness of breath or wheezing #1 ea benzonatate 200 mg capsule 200 mg PO TID PRN cough #20 caps 10/06/23 lidocaine HCl 2 % mucosal solution 1 appl mucous membrane TID PRN 10/06/23 (Lidocaine Viscous) pain #100 mL fluticasone propionate 113 1 inh inhalation BID #1 ea 11/16/23 mcg/actuation breath activated pwdr inhal,sensor Allergies Allergy/AdvReac Type Severity Reaction Status Date / Time hydrocodone [From VICODIN] Allergy Mild HIVES Verified 11/17/23 14:30 oxycodone [From PERCOCET] Allergy Mild HIVES Verified 11/17/23 14:30 azithromycin [AZITHROMYCIN] Allergy Unknown NAUSEA & Verified 11/17/23 14:30 VOMITING erythromycin base Allergy Unknown NAUSEA & Verified 11/17/23 14:30 [From ERYTHROCIN] VOMITING Review of Systems 2 Review of Systems: Yes all other systems are reviewed and are negative PMF Past Medical History Medical History Asthma Sleep apnea Migraine Sinusitis Breast pain, left Hypertension Sleep apnea Bipolar 1 disorder Depression Anxiety delivery delivered Diabetes Sciatica Kidney infection Kidney stones HTN (hypertension) Fibromyalgia Lupus Surgical History H/O section H/O: hysterectomy Family History Family History Maternal Grandmother HTN (hypertension) Diabetes Cancer Other FH: mental illness Substance use Social History Social History Housing: Apartment Alcohol intake: never Patient Tobacco Use Status: Former Tobacco user Smoked in Last 30 Days: Yes e-Cigarette/Vaping Use: Currently Using Use of substances other than those prescribed or required for medical reasons: No Substance Use Type: Marijuana Advance Directives: No Advance Directives Information Provided: No Do you have a plan to hurt others: No Plan service: Yes Current occupational status: employed 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 She does not seem in obvious distress. HENMT Other: Face is symmetrical. Mucous membranes are moist. Tongue is midline. There are some stigmata of recent bleeding on the left nasal septum and to a lesser degree on the right nasal septum. No active bleeding. Eyes General: appearance normal, both eyes and all related structures Alignment and Position: alignment normal Periorbital: periorbital findings normal Eyelids: Yes eyelids normal Conjunctivae: conjunctivae normal Pupils: Equal, round and reactive pupils present EOM: EOMs intact bilaterally Neck Other: Moving her neck easily, no cervical adenopathy Resp Effort & Inspection: normal respiratory effort Auscultation: clear to auscultation bilaterally Cardio Rate: regular rate Rhythm: regular rhythm Heart sounds: S1 normal heart sound present and S2 normal heart sound present GI Other: Abdomen is soft and nontender Skin Other: Skin is dry and unremarkable. No rash. Neuro Other: The patient is awake, alert, oriented, appropriate. Cognition is normal. Pupils are round equal and reactive to light, extraocular movements are intact, face is symmetrical, speech is normal, the patient has 5/5 strength in all 4 extremities. No pronator drift. Finger-nose is normal. Heel-rao is normal. Gait is steady. She seems neurologically intact. Cranial nerves: Yes Equal, round and reactive pupils present Extrem Other: No peripheral edema Course Course Course Narrative: This is an RME: Additional HPI, ROS, PE not included below will be deferred to primary provider. RME assessment and note performed by: Lorraine Salas PA-C This is a [id number]-female who presents to the ER with a complaint of elevated blood pressures and epistaxis. Patient states that yesterday she felt off like she was under the influence. She states that she took her blood pressure at that time and noted that it was high, does not remember the number. She woke up this morning feeling fatigued. At 11 she started to feel the same way that she was feeling yesterday. She reports that her blood pressure was high again, developed vomiting nosebleed he has been taking her medication as prescribed. Also endorsing some chest discomfort since yesterday which has been waxing and waning in severity Plan: Labs, UA, chest x-ray, EKG Medications Administered Discontinued Medications Generic Name Dose Route Start Last Admin Trade Name Freq PRN Reason Stop Dose Admin Meclizine HCl 25 mg 11/17/23 21:07 11/17/23 21:39 Meclizine Hcl 25 Mg Tablet PO 11/17/23 21:08 25 mg ONCE ONE Administration Medical Decision Making Medical Decision Making MDM Narrative: The patient is a 43-year-old female who has not felt well for the last couple of days. Her symptoms are nonspecific. She says that she feels like she was drunk or had used a lot of marijuana. She has no focal findings on neurological exam. I think it would be unlikely if this is the presentation of a stroke. She has an undetectable troponin after 2 days of discomfort. I think this essentially rules out an acute coronary syndrome. Her workup in the emergency room is unremarkable. She was given a dose of meclizine. She will be provided with a work note for the next couple of days. She should plan on following up with the regular doctor. If you feel significantly worse she should return to the emergency room. Lab Data 11/17/23 14:52 11/17/23 14:52 Labs: Lab Results 11/17/23 11/17/23 Range/Units 14:52 21:15 WBC 8.1 (4.8-10.8) X10*3/uL RBC 4.75 (4.20-5.50) X10*6/uL Hgb 14.4 (12.0-16.0) g/dl Hct 41.0 (37.0-47.0) % MCV 86.3 (80.0-98.0) fL MCH 30.3 (27.0-33.0) pg MCHC 35.1 H (31.0-35.0) g/dl RDW 13.2 (11.0-16.0) % Plt Count 297 (160-400) X10*3/uL MPV 9.5 (9.4-12.3) fL Immature Gran % (Auto) 0.6 H (0.0-0.4) % Neut % (Auto) 67.8 (45-73) % Lymph % (Auto) 22.4 (20-40) % [place] % (Auto) 6.6 (2-11) % Eos % (Auto) 2.4 (0-4) % Baso % (Auto) 0.2 (0-2) % Lymph # (Auto) 1.8 (1.2-4.9) X10*3/uL [place] # (Auto) 0.5 (0.1-1.2) X10*3/uL Eos # (Auto) 0.2 (0.0-0.4) X10*3/uL Baso # (Auto) 0.0 (0.0-0.2) X10*3/uL Abs Immat Gran (auto) 0.05 H (0.00-0.03) X10*3/uL Absolute Neuts (auto) 5.5 (2.0-8.3) x10*3/uL Absolute Nucleated RBC 0.000 (0.0-0.012) X10*3/uL Nucleated RBC % (auto) 0.0 (0.0-0.2) /100WBC PT 12.0 (11.1-13.3) SEC INR 1.0 (0.9-1.1) Sodium 138 (135-145) mmol/L Potassium 4.3 (3.3-5.1) mmol/L Chloride 103 (96-108) mmol/L Carbon Dioxide 29 (22-29) mmol/L Anion Gap 10 L (12-20) BUN 16 (9-16) mg/dL Creatinine 0.82 (0.5-1.4) mg/dL Estim Creat Clear Calc 97.7 Estimated GFR > 60 Random Glucose 178 H (60-115) mg/dL Calcium 9.7 (8.4-10.2) mg/dL Magnesium 1.7 (1.6-2.6) mg/dL Total Bilirubin 0.3 (0.0-1.0) mg/dL Direct Bilirubin 0.1 (0.0-0.5) mg/dL AST 23 (5-31) U/L ALT 31 (0-31) U/L Alkaline Phosphatase 120 H (39-117) U/L Troponin I High Sens < 2.7 (<3.5-17.0) ng/L Total Protein 7.2 (6.5-8.0) g/dL Albumin 3.9 (3.5-5.0) g/dL Lipase 17 (8-78) U/L Beta HCG, Quant < 2 mIU/mL Urine Color Yellow Urine Appearance Clear Urine pH 5.5 (5.0-9.0) Ur Specific [place] 1.025 (1.005-1.025) Urine Protein Negative (Neg-Trace) mg/dL Urine Glucose (UA) 100 H (Negative) mg/dL Urine Ketones Negative (Negative) mg/dL Urine Blood Negative (Negative) Urine Nitrite Negative (Negative) Ur Leukocyte Esterase Negative (Negative) Influenza Type A (PCR) NEGATIVE (Negative) Influenza Type B (PCR) NEGATIVE (Negative) RSV RNA Qual (PCR) NEGATIVE (Negative) SARS-CoV-2 RNA (RT-PCR) NEGATIVE (Negative) Discharge Plan Discharge Clinical Impression: Dizziness, Nausea, Lightheadedness, Nosebleed Patient Disposition: Home, Self-Care Additional Instructions: Your testing in the emergency room today is largely reassuring. Please rest and take it easy for the next couple of days. Drink lot of fluids. Please plan on following up with your regular doctor next week for a second opinion. Return to the emergency room if worse. Prescriptions: No Action albuterol sulfate 90 mcg/actuation HFA aerosol inhaler 1 inh inhalation QID PRN (Reason: shortness of breath or wheezing) Qty: 8.5 0RF (DME) blood-glucose meter [FreeStyle [place] Lite] Kit See Rx Instructions .ROUTE .MEDSUPPLY Qty: 1 0RF Rx Instructions: As directed (DME) FreeStyle Lite Strips Strip See Rx Instructions .ROUTE .MEDSUPPLY Qty: 100 0RF Rx Instructions: As directed (DME) lancets [FreeStyle Lancets] 28 gauge misc See Rx Instructions .ROUTE .MEDSUPPLY Qty: 100 0RF Rx Instructions: As directed acetaminophen [Tylenol Extra Strength] 500 mg tablet 1,000 mg PO Q8H PRN (Reason: back pain) Qty: 60 0RF lidocaine HCl [Lidocaine Viscous] 2 % solution 1 appl mucous membrane TID PRN (Reason: pain) Qty: 100 0RF benzonatate 200 mg capsule 200 mg PO TID PRN (Reason: cough) Qty: 20 0RF clonazepam 1 mg tablet 1 mg PO BEDTIME PRN (Reason: anxiety) bupropion HCl 300 mg tablet extended release 24 hr 300 mg PO DAILY sumatriptan succinate [Imitrex] 100 mg tablet See Rx Instructions PO .COMPLEX Rx Instructions: take 1 tab at onset of headache; if no relief, may repeat 1 tab after at least 2 hrs; max = 2 tabs/24 hrs PO metformin 750 mg tablet extended release 24 hr 750 mg PO BID Qty: 180 0RF metoprolol tartrate 25 mg tablet 12.5 mg PO BID 30 Days Qty: 90 0RF omeprazole 20 mg capsule,delayed release(DR/EC) 20 mg PO DAILY Qty: 90 0RF fluticasone propionate 50 mcg/actuation spray,suspension 1 spray intranasal BID Qty: 16 0RF Rx Instructions: administer into each nostril lisinopril 5 mg tablet 5 mg PO DAILY Qty: 90 0RF ibuprofen [IBU-200] 200 mg tablet 400 mg PO Q8H albuterol sulfate 90 mcg/actuation HFA aerosol inhaler 2 puff inhalation Q4-6H PRN (Reason: shortness of breath or wheezing) Qty: 1 3RF tizanidine 4 mg tablet 4 mg PO BID PRN (Reason: muscle spasm) Qty: 60 0RF lidocaine 5 % adhesive patch,medicated 1 patch topical DAILY 30 Days Qty: 30 0RF Rx Instructions: leave on most painful area for up to 12 hrs fluticasone propionate 113 mcg/actuation aero powdr breath act w/sensor 1 inh inhalation BID Qty: 1 3RF Referrals: Minerva Zuleta, [facility] [Primary Care Provider] - (Dizziness, lightheadedness) Stand Alone Forms: Work/School Release Interventions: ED Discharge Assessment Last Done: 11/17/23 22:21 Discharge Date/Time: 11/17/23 22:22 Print Language: Brazilian
--- NOTE | 2023-11-17 14:29 | ECG_ITS ---
Test Reason : CHEST PAIN Blood Pressure : / mmHG Vent. Rate : 086 BPM Atrial Rate : 086 BPM P-R Int : 170 ms QRS Dur : 076 ms QT Int : 356 ms P-R-T Axes : 035 022 038 degrees QTc Int : 426 ms Normal sinus rhythm Normal ECG When compared with ECG of 15-FEB-2020 10:48, No significant change was found Referred By: Lorraine Salas Electronically Signed By:DIPTI KNAPP MD
[2023-11-17 15:05] LABS: MANUAL DIFF FLAG NO
[2023-11-17 15:07] LABS: Basophils Percent Auto 0.2 % (0-2); Eosinophils Absolute Auto 0.2 X10*3/uL (0.0-0.4); Eosinophils Percent Auto 2.4 % (0-4); Hemoglobin 14.4 g/dl (12.0-16.0); Imm Gran Abs Auto 0.05 X10*3/uL (0.00-0.03); Imm Gran Pct Auto 0.6 % (0.0-0.4); Lymphocytes Absolute Auto 1.8 X10*3/uL (1.2-4.9); Lymphocytes Percent Auto 22.4 % (20-40); Mean Corpuscular HGB Conc 35.1 g/dl (31.0-35.0); Mean Corpuscular Hemoglobin 30.3 pg (27.0-33.0); Mean Corpuscular Volume 86.3 fL (80.0-98.0); Mean Platelet Volume 9.5 fL (9.4-12.3); Monocytes Absolute Auto 0.5 X10*3/uL (0.1-1.2); Monocytes Percent Auto 6.6 % (2-11); Neutrophils Absolute Auto 5.5 x10*3/uL (2.0-8.3); Neutrophils Percent Auto 67.8 % (45-73); Platelet Count 297 X10*3/uL (160-400); Red Blood Count 4.75 X10*6/uL (4.20-5.50); Red Cell Distribution Width 13.2 % (11.0-16.0); White Blood Count 8.1 X10*3/uL (4.8-10.8)
[2023-11-17 15:34] LABS: Alanine Aminotransferase 31 U/L (0-31); Albumin Level 3.9 g/dL (3.5-5.0); Alkaline Phosphatase 120 U/L (39-117); Anion Gap 10 (12-20); Aspartate Amino Transferase 23 U/L (5-31); Bilirubin Direct 0.1 mg/dL (0.0-0.5); Bilirubin Total 0.3 mg/dL (0.0-1.0); Blood Urea Nitrogen 16 mg/dL (9-16); Calcium 9.7 mg/dL (8.4-10.2); Carbon Dioxide 29 mmol/L (22-29); Chloride 103 mmol/L (96-108); Creatinine Clr Calc Pharmacy 97.7; Estimated Glomerular Filt Rate > 60; Glucose Random 178 mg/dL (60-115); Lipase 17 U/L (8-78); Magnesium 1.7 mg/dL (1.6-2.6); Potassium 4.3 mmol/L (3.3-5.1); Sodium 138 mmol/L (135-145); Total Protein 7.2 g/dL (6.5-8.0)
[2023-11-17 15:36] LABS: HCG Quantitative < 2 mIU/mL; Troponin-I High Sensitivity < 2.7 ng/L (<3.5-17.0)
[2023-11-17 15:48] LABS: Influenza A PCR NEGATIVE (Negative); Influenza B PCR NEGATIVE (Negative); Resp Syncy Virus RNA Qual PCR NEGATIVE (Negative); SARS COV2 PCR INHOUSE NEGATIVE (Negative)
[2023-11-17 19:33] VITALS: BP 176/97; PULSE 87; RESP 18; TEMP 36.6
[2023-11-17 21:23] LABS: Appearance Urine Clear; Color Urine Yellow; Glucose Urine UA 100 mg/dL (Negative); Leukocyte Esterase Urine Negative (Negative); Nitrite Urine Negative (Negative); PH 5.5 (5.0-9.0); Specific Gravity - Urine 1.025 (1.005-1.025); Urine Blood Negative (Negative); Urine Ketones Negative (Negative); Urine Protein Negative (Neg-Trace)
[2023-11-17] MEDS: Meclizine HCl 25 MG TABLET PO (21:39)
[2023-11-17 22:21] VITALS: BP 157/93; PULSE 76; RESP 15; TEMP 36.7; O2SAT 99
== END 2023-11-17 22:22 | disposition home or self-care (01) ==
PROVIDERS: Physician Assistant Medical; Emergency Provider Emergency Medicine; PCP Nurse Practitioner Family
DX: R42 Dizziness and giddiness (principal); R11.0 Nausea; R04.0 Epistaxis; R07.9 Chest pain, unspecified; F12.90 Cannabis use, unspecified, uncomplicated; E11.9 Type 2 diabetes mellitus without complications; I10 Essential (primary) hypertension; J45.909 Unspecified asthma, uncomplicated; Z03.818 Encounter for observation for suspected exposure to other biological agents ruled out; Z87.891 Personal history of nicotine dependence; Z79.899 Other long term (current) drug therapy; Z79.84 Long term (current) use of oral hypoglycemic drugs
CPT/HCPCS: 0241U; 71046; 80048; 80076; 81003; 83690; 83735; 84484; 84702; 85025; 85610; 93005; 99283; 99284

== ENCOUNTER → 2023-11-17 14:29 | Outpatient (BNV) | payer OTHER, SELFPAY | PROVIDERS: Emergency Provider Emergency Medicine; PCP Nurse Practitioner Family; Visit Provider Internal Medicine Cardiovascular Disease | DX: R07.9 Chest pain, unspecified (principal) | CPT/HCPCS: 93010 ==

== ENCOUNTER 2023-11-30 13:14 | Outpatient (REF) | payer OTHER, SELFPAY ==
--- NOTE | ~2023-11-30 | MM_ITS ---
EXAMINATION: MM DIAGNOSTIC DIGITAL BREAST TOMOSYNTHESIS, RIGHT CLINICAL INFORMATION: Follow up calcifications seen on baseline screening exam 10/17/2023, right breast, upper outer quadrant. COMPARISON: Mammography: Baseline exam 10/17/2023. No priors. TECHNIQUE: Digital breast tomosynthesis is performed in the following views: 2-D spot magnification right CC and ML views. Computer-aided diagnosis was used for this study. FINDINGS: There are scattered areas of fibroglandular density (ACR BI-RADS breast composition Category b). There is a small group of indeterminate appearing calcifications in the upper outer right breast, middle one third, which have mildly amorphous, tight grouping, but no casting, branching, or linear forms. These are indeterminate, and stereotactic guided biopsy is recommended for definitive characterization. There are 2 oil cysts noted in the upper right breast. No additional suspicious abnormality. MM/MM added views RT IMPRESSION: -Indeterminate calcifications upper outer right breast middle one third. Stereotactic biopsy recommended. -Findings and recommendations discussed with the patient in detail, who appears in understanding. ASSESSMENT: BI-RADS 4: Suspicious RECOMMENDATION: Stereotactic guided biopsy right breast. Electronically signed by: Zoran Gonzalez MD 11/30/2023 02:06 PM EDT
== END 2023-11-30 13:15 | disposition home or self-care (01) ==
LOC: HO.MAMMO 13:14
PROVIDERS: PCP Nurse Practitioner Family; Visit Provider Nurse Practitioner Family
DX: R92.1 Mammographic calcification found on diagnostic imaging of breast (principal)
CPT/HCPCS: 77065

== ENCOUNTER → 2023-11-30 13:30 | Outpatient (BNV) | payer OTHER, SELFPAY | PROVIDERS: PCP Nurse Practitioner Family; Visit Provider Radiology Diagnostic Radiology | DX: R92.1 Mammographic calcification found on diagnostic imaging of breast (principal) | CPT/HCPCS: 77061; 77065 ==

== ENCOUNTER 2023-12-04 12:56 | Outpatient (AMB) | payer OTHER, SELFPAY ==
--- NOTE | 2023-12-04 12:56 | A.OFFVIS_ITS ---
Vital Signs 12/04/23 12:58 Height 5 ft 3 in Weight 211 lb 10.3 oz BMI 37.5 BP 134/86 Blood Pressure Location Lt brachial Position Sitting Pulse 78 Intake Visit Reasons: liver disease, hemorrhoids Intake Note: Linda presents in the office as a new patient for liver disease and hemorrhoids. CC: She got up from the waiting room and got a severe stabbing pain in the LUQ. Goes back and forth with constipation and diarrhea. 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 Has been having intermittent rectal bleeding for almost 5 years. Typically with a BM. On wiping. Stool itself is brown. BMs fluctuate from constipation to diarrhea. Typically starts off as very hard BM and then gets softer as the day. Strains significantly. Can feel hemorrhoids on wiping. Also reports significant abd pain phyllis in left side. Unrelated to BMs per her report. No fam hx of colon ca in FDR. Vapes. Takes edible THC. Rare alcohol. No blood thinners. Takes NSAIDs frequently for migraines. [facility], LATER [facility] Medical History Asthma Sleep apnea Migraine Sinusitis Breast pain, left Hypertension Sleep apnea Bipolar 1 disorder Depression Anxiety delivery delivered Diabetes Sciatica Kidney infection Kidney stones HTN (hypertension) Fibromyalgia Lupus Surgical History H/O section H/O: hysterectomy Family History Maternal Grandmother HTN (hypertension) Diabetes Cancer Other FH: mental illness Substance use Social History Housing: Apartment Alcohol intake: never Patient Tobacco Use Status: Former Tobacco user e-Cigarette/Vaping Use: Currently Using Substance Use Type: Marijuana service: Yes Current occupational status: employed 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 Current occupational exposures/hazards: No Cognitive needs: No Hearing needs: No Vision needs: Yes (glasses) Review of Systems Const All systems reviewed & are unremarkable except as noted in HPI and below Physical Exam Vital Signs: Last Vital Signs Pulse 78 12/04/23 12:58 BP 134/86 12/04/23 12:58 BMI result Body Mass Index 37.5 No apparent distress Nonicteric Abdomen soft, nondistended Alert and oriented x3, normal gait Assessment & Plan Assessment & Plan (1) Obesity with serious comorbidity: Code(s): E66.9 - Obesity, unspecified Category: Medical (2) IGNACIO on CPAP: Code(s): G47.33 - Obstructive sleep apnea (adult) (pediatric) Category: Medical (3) Abdominal pain: Code(s): R10.9 - Unspecified abdominal pain Category: Medical (4) Hemorrhoid: Code(s): K64.9 - Unspecified hemorrhoids Category: Medical Qualifiers: Hemorrhoid type: unspecified Qualified Code(s): K64.9 - Unspecified hemorrhoids (5) Change in bowel habit: Code(s): R19.4 - Change in bowel habit Category: Medical (6) Lesion of liver: Code(s): K76.9 - Liver disease, unspecified Category: Medical Plan DDx for abd pain, rectal bleeding and changes in bowel habits include IBD, IBS with hemorrhoidal bleeding, malignancy. Plan: - Blood work reviewed - EGD/colo booked - PEG prep reviewed. For 3cm liver lesion noted on CT, a dedicated triple phased CT has been ordererd. Follow up after procedures. Orders: Orders CT abdomen pelvis wo/w IV con Today K76.9 - Liver disease, unspecified Medications: New peg 3350-electrolytes 236-22.74-6.74 -5.86 gram (Golytely) as per split prep instructions, until fecal effluent is clear 240 mL PO Q10M 4,000 mL 0RF colonoscopy Coding Level of Care Code New Pt Level 4 (05851) Diagnoses Obesity with serious comorbidity E66.9 IGNACIO on CPAP G47.33 Abdominal pain R10.9 Hemorrhoids, unspecified hemorrhoid type K64.9 Hemorrhoid type: unspecified Change in bowel habit R19.4 Lesion of liver K76.9
[2023-12-04 12:58] VITALS: BP 134/86; PULSE 78; BMI 37.5
== END 2023-12-04 14:03 | disposition home or self-care (01) ==
PROVIDERS: PCP Nurse Practitioner Family; Visit Provider Internal Medicine
DX: E66.9 Obesity, unspecified (principal); G47.33 Obstructive sleep apnea (adult) (pediatric); R10.9 Unspecified abdominal pain; K64.9 Unspecified hemorrhoids; R19.4 Change in bowel habit; K76.9 Liver disease, unspecified
CPT/HCPCS: 99204

== ENCOUNTER → 2023-12-04 12:56 | Outpatient (BNVA) | payer OTHER, SELFPAY | PROVIDERS: PCP Nurse Practitioner Family; Visit Provider Internal Medicine | DX: E66.9 Obesity, unspecified (principal); G47.33 Obstructive sleep apnea (adult) (pediatric); R10.9 Unspecified abdominal pain; K64.9 Unspecified hemorrhoids; R19.4 Change in bowel habit; Z68.37 Body mass index [BMI] 37.0-37.9, adult; Z99.89 Dependence on other enabling machines and devices | CPT/HCPCS: 99202 ==

== ENCOUNTER 2023-12-07 08:26 | Outpatient (AMB) | payer OTHER, SELFPAY ==
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
[2023-12-07 08:34] VITALS: BP 151/83; PULSE 78; BMI 43.0
== END 2023-12-07 08:51 | disposition home or self-care (01) ==
PROVIDERS: PCP Nurse Practitioner Family; Visit Provider Surgery
DX: R92.8 Other abnormal and inconclusive findings on diagnostic imaging of breast (principal)
CPT/HCPCS: 99204

== ENCOUNTER 2023-12-07 09:04 | Outpatient (REF) | payer OTHER, SELFPAY ==
--- NOTE | ~2023-12-07 | MM_ITS ---
EXAMINATION: STEREOTACTIC TOMOSYNTHESIS-GUIDED VACUUM-ASSISTED BREAST BIOPSY, RIGHT SPECIMEN RADIOGRAPH, RIGHT POST PROCEDURE DIGITAL MAMMOGRAM, RIGHT CLINICAL INFORMATION: Suspicious calcifications upper outer right breast middle one third identified on diagnostic mammogram. COMPARISON: Mammography right 11/30/2023, 10/27/2023. TECHNIQUE/PROCEDURE: Informed consent was obtained from the patient after discussion of the benefits, risks, and alternatives to biopsy today. Patient appeared to understand. Gave opportunity for questions. Patient signed consent form. BIOPSY TABLE: [employer] Affirm Prone Biopsy System. LESION: Grouped microcalcifications.. LOCAL ANESTHESIA: 4 mL 1% lidocaine; 10 mL 1% lidocaine with epinephrine. DERMATOTOMY: Single skin kumar dermatotomy performed. NEEDLE: [address] Eviva 9-gauge vacuum assisted core biopsy device. APPROACH: lateral medial. TARGETING: Digital breast tomosynthesis used for targeting. CORES: 5. CLIP: Top hat shaped. SPECIMEN RADIOGRAPH: Specimen radiograph is taken in separate room using digital mammography. The index calcifications are in the excised cores. POST PROCEDURE UNILATERAL DIGITAL MAMMOGRAM: The post biopsy mammogram is performed in separate room using separate digital mammography equipment from the biopsy procedure. Right CC and ML views are obtained. There are scattered areas of fibroglandular density (breast composition category: b). The clip marker is in position. The calcifications are near completely excised at the biopsy site. No gross hematoma. The patient tolerated the procedure well. No immediate complications. Home instructions reviewed with the patient. Final pathology results are pending. MM/MM stereotactic biopsy RT IMPRESSION: 1. Digital tomosynthesis-guided core biopsy right breast grouped calcifications upper outer quadrant with clip placement. 2. Specimen radiograph taken and post procedure mammogram. There is accurate positioning of the biopsy clip. 3. Final pathology results pending. An addendum report will be issued. Electronically signed by: Zoran Gonzalez MD 12/07/2023 11:44 AM EDT
== END 2023-12-07 09:05 | disposition home or self-care (01) ==
LOC: HO.MAMMO 09:04
PROVIDERS: PCP Nurse Practitioner Family; Visit Provider Surgery
DX: R92.8 Other abnormal and inconclusive findings on diagnostic imaging of breast (principal); R92.1 Mammographic calcification found on diagnostic imaging of breast
CPT/HCPCS: 19081; 88305; 88341; 88342; 88360; 99202; A4648

== ENCOUNTER → 2023-12-07 10:00 | Outpatient (BNV) | payer OTHER, SELFPAY | PROVIDERS: PCP Nurse Practitioner Family; Visit Provider Radiology Diagnostic Radiology | DX: R92.8 Other abnormal and inconclusive findings on diagnostic imaging of breast (principal) | CPT/HCPCS: 19081; 77065 ==

== ENCOUNTER 2023-12-14 11:28 | Outpatient (AMB) | payer OTHER, SELFPAY ==
--- NOTE | 2023-12-14 11:30 | A.OFFVIS_ITS ---
Vital Signs 12/14/23 11:38 Height 5 ft 3 in Weight 242 lb 8.136 oz BMI 43.0 Pulse 722 H Intake Visit Reasons: s/p stereo R/brst upper outer quandrant Intake Note: Patient is seen in office for stereo biopsy results, following right breast UOQ. 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 She reports some itchiness and soreness from the biopsy site. Pathology revealed benign breast tissue with adenosis without atypia or malignancy. [facility] Medical History Asthma Sleep apnea Migraine Sinusitis Breast pain, left Hypertension Sleep apnea Bipolar 1 disorder Depression Anxiety delivery delivered Diabetes Sciatica Kidney infection Kidney stones HTN (hypertension) Fibromyalgia Lupus Surgical History H/O section H/O: hysterectomy Family History Maternal Grandmother HTN (hypertension) Diabetes Cancer Other FH: mental illness Substance use Social History Housing: Apartment Alcohol intake: never Patient Tobacco Use Status: Former Tobacco user e-Cigarette/Vaping Use: Currently Using Substance Use Type: Marijuana service: Yes Current occupational status: employed 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 There is no evidence of infection or allergic reaction. Skin Other: Warm, dry, no rash Assessment & Plan Assessment & Plan (1) Abnormal mammogram of right breast: Code(s): R92.8 - Other abnormal and inconclusive findings on diagnostic imaging of breast Category: Medical Plan Patient returns 1 week following stereotactic guided core biopsy of the right breast. She tolerated the procedure well and the pathology is benign. She should follow up as needed. Coding Level of Care Code Est Pt Level 3 (22692) Diagnoses Abnormal mammogram of right breast R92.8
[2023-12-14 11:38] VITALS: PULSE 722; BMI 43.0
== END 2023-12-14 11:51 | disposition home or self-care (01) ==
PROVIDERS: PCP Nurse Practitioner Family; Visit Provider Surgery
DX: R92.8 Other abnormal and inconclusive findings on diagnostic imaging of breast (principal)
CPT/HCPCS: 99213

== ENCOUNTER → 2023-12-14 11:28 | Outpatient (BNVA) | payer OTHER, SELFPAY | PROVIDERS: PCP Nurse Practitioner Family; Visit Provider Surgery | DX: R92.8 Other abnormal and inconclusive findings on diagnostic imaging of breast (principal); N64.4 Mastodynia | CPT/HCPCS: 99212 ==

== ENCOUNTER 2023-12-15 09:04 | Outpatient (AMB) | payer OTHER, SELFPAY ==
--- NOTE | 2023-12-15 09:23 | MHC.PC.OV ---
Vital Signs 12/15/23 09:33 Height 5 ft 3 in Weight 210 lb 2 oz BMI 37.2 BP 114/86 Blood Pressure Location Rt brachial Position Sitting Respiration 16 Pulse 63 Pulse Source Pulse Oximeter Pulse Oximetry (%) 97 Oxygen Delivery Method Room Air Intake Visit Reasons: fu chronic conditions Intake Note: Follow up Support Engineer Required: No Allergies hydrocodone [From VICODIN] Allergy (Mild, Verified 12/15/23 10:18) HIVES oxycodone [From PERCOCET] Allergy (Mild, Verified 12/15/23 10:18) HIVES azithromycin [AZITHROMYCIN] Allergy (Unknown, Verified 12/15/23 10:18) NAUSEA & VOMITING erythromycin base [From ERYTHROCIN] Allergy (Unknown, Verified 12/15/23 10:18) NAUSEA & VOMITING Medication List - Last Reconciled 12/15/23 by DEBRA TravisP-BC acetaminophen (Tylenol Extra Strength) 1,000 mg (2 x 500 mg) PO Q8H PRN albuterol sulfate 90 mcg/actuation 2 puffs inhalation Q4-6H PRN blood sugar diagnostic (FreeStyle Lite Strips) As directed blood-glucose meter (FreeStyle [place] Lite kit) As directed bupropion HCl XL 300 mg PO DAILY fluticasone propionate 50 mcg/actuation 1 spray intranasal BID fluticasone propionate 113 mcg/actuation 1 inh inhalation BID ibuprofen (IBU-200) 400 mg PO Q8H lancets (FreeStyle Lancets) As directed lidocaine 5% 1 patch topical DAILY 30 days lisinopril 5 mg PO DAILY metformin ER 750 mg PO BID metoprolol tartrate 25 mg PO ONCE omeprazole 20 mg PO DAILY peg 3350-electrolytes 236-22.74-6.74 -5.86 gram (Golytely) 240 mL PO Q10M sumatriptan succinate (Imitrex) take 1 tab at onset of headache; if no relief, may repeat 1 tab after at least 2 hrs; max = 2 tabs/24 hrs PO Tobacco use date assessed: 09/08/23 Dental Screening Dental Screen Date: 09/08/23 HPI HPI Comments History of Present Illness Details 43-year-old female with diabetes 2, asthma, anxiety, MDD, constipation, bipolar 1 disorder, sleep apnea, renal stones, PTSD, lupus, hypertension, fibromyalgia, 3.6 cm hypodense lesion in the liver at the junction of the right and left hepatic lobes with thin rim calcification along the right lateral wall of the lesion, CAD, small fat-containing anterior midline hernia , diverticulosis, fatty liver, splenomegaly, osteoarthritis multiple joints Status post hysterectomy, 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 Mammo 10/17/23 MM/MM tomosynthesis screening BI Grouped calcifications in the right breast warrant additional imaging; No mammographic signs of malignancy left breast. ASSESSMENT: BI-RADS BI-RADS 0 - Incomplete: Needs additional Imaging. RECOMMENDATION: Additional views of the right breast 12/06/23 Dr Radha BLOOD stereotactic bi opsy RT negative p athology Here today for routine follow up chronic conditions since last office visit she had her mammogram and her bone density done. Results were reviewed with her today. The bone density was normal. Unfortunately her mammogram it resulted in need for a biopsy of the right breast which was performed. The pathology results were negative. The consult loss with the surgeon were reviewed. She is scheduled for her 1st colonoscopy in April. She continues with the bright red blood in her stools and diarrhea with some occasional regular bowel movements in between. She also reports chronic nausea without vomiting. Uses Zofran with positive effect. She feels like her migraines are worsening in the setting of anxiety related to her abnormal mammogram. Admits now that the biopsy is done and negative her anxiety has improved. She is interested in a referral to counselor. States she has a counselor and prescriber but this is not a good fit & therefore is looking for a new counselor & prescriber. However migraines continue to be an issue. She does have a consult with Neurology in place. Her next appointment is in January of 2024. The initial consult note was reviewed. She also had a consultation with [facility]'s pain management 09/14/2023. This consult note was reviewed. The recommendation was for injections, the patient reports that she has not scheduled to follow up yet. She was advised to call them to arrange for this as she continues with her chronic back and hip pain. Several ED visits since the last visit for this. Reports feeling black out drunk, slurred speech, high blood sugar and pressure . Negative workups. She is not using the Flonase as directed, admits that she forgets. Reports that her breathing is doing well. Blood pressure is well controlled on current regimen. She is complaining of rolling her right ankle over the last 2 weeks. She remains tolerating compliant of her medication therapy. The incidental finding of coronary artery disease on imaging was reviewed with her today. She is open to starting on a statin. Exam: Awake alert NAD scleras nonicteric bilat MMM RRR LS CTAB Abd soft, nontender, normoactive BS pain over transverse low back and bilat hips w/ palpation and movement Mood and affect appropriate Plan Nurse navigation referral to help her establish care with a counselor residential green building designer referral for routine Women's Health Start atorvastatin 10 mg p.o. daily for coronary artery disease. LDL goals less than 70 Supportive brace for the right ankle. Schedule DME. Cont meds for DM. FU with care team Cont all medications as prescribed. RTO in about 1 month for close interim f/u, sooner PRN Labs from today show normal electrolytes, normal renal function, fasting glucose 133, hemoglobin A1c 7.5%, normal calcium, normal LFTs, total cholesterol 165, triglycerides 138, LDL 107, HDL 31, normal B12 484, normal folate, normal TSH, vitamin-D pending, normal urine microalbumin creatinine ratio This note is constructed using voice recognition software. While every effort has been made to ensure accuracy in field service poultry technician, still errors may have been included Sometimes, these errors may affect the content or meaning of the given sentence . Total time spent caring for the patient today was 45 minutes. This includes time spent before the visit reviewing the chart, time spent during the visit, and time spent after the visit on documentation [facility] Medical History (Updated 12/19/23 @ 09:07 [facility] Nephrolithiasis Asthma Sleep apnea Migraine Sinusitis Breast pain, left Hypertension Sleep apnea Bipolar 1 disorder Depression Anxiety delivery delivered Diabetes Sciatica Kidney infection Kidney stones HTN (hypertension) Fibromyalgia Lupus Surgical History H/O section H/O: hysterectomy Family History Maternal Grandmother HTN (hypertension) Diabetes Cancer Other FH: mental illness Substance use Social History Housing: Apartment Alcohol intake: never Patient Tobacco Use Status: Former Tobacco user e-Cigarette/Vaping Use: Currently Using Substance Use Type: Marijuana service: Yes Current occupational status: employed 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 1. Little interest or pleasure in doing things: several days 2. Feeling down, depressed, or hopeless: more than half the days 3. Trouble falling or staying asleep, or sleeping too much: nearly every day 4. Feeling tired or having little energy: more than half the days 5. Poor appetite or overeating: more than half the days 6. Feeling bad about yourself - or that you are a failure or have let yourself or your family down: several days 7. Trouble concentrating on things, such as reading the newspaper or watching television: more than half the days 8. Moving or speaking so slowly that other people could have noticed. Or the opposite - being so fidgety or restless that you have been moving around a lot more than usual: more than half the days 9. Thoughts that you would be better off or of hurting yourself in some way: not at all Total score: 15 Depression Screening Interpretation: Positive Depression Screening Done: Yes 40977 - PHQ-9 Billing: Yes Source: Developed by Drs. Rob Parry, Tana Rowley, Gen Mcdonald and colleagues, with an educational ezra from [employer]. Thrive Questionnaire Date Thrive assessed: 09/08/23 JONATHON-7 AMB Questionnaire JONATHON-7 Date JONATHON - 7 assessed: 12/15/23 Feeling nervous, anxious, or on edge: 2 = More than half the days Not being able to stop or control worryin = Nearly every day Worrying too much about different things: 2 = More than half the days Trouble relaxin = Nearly every day Being so restless that it is hard to sit still: 2 = More than half the days Becoming easily annoyed or irritable: 2 = More than half the days Feeling afraid as if something awful might happen: 2 = More than half the days Total JONATHON-7 score (0-4 normal; 5-9 mild; 10-14 moderate; 15-21 severe): 16 Source: Developed by Drs. oRb Parry, Tana Rowley, Gen Mcdonald and colleagues, with an educational ezra from [employer]. JONATHON-7 Assessment Billing JONATHON-7 Assessment Tool: JONATHON-7 Assessment 97332 ACT Questionnaire In the past 4 weeks, how much of the time did your asthma keep you from getting as much done at work, school or at home?: A little of the time During the past 4 weeks, how often have you had shortness of breath?: 1-2 times a week During the past 4 weeks, how often did your asthma symptoms wake you up at night or earlier than usual in the morning?: Once or twice per week During the past 4 weeks, how often have you had to use your rescue inhaler or nebulizer medication?: Once a week or less How would you rate your asthma control during the past 4 weeks?: Well controlled ACT Interpretation: Negative Score: 20 Physical exam (Primary Care) Vital Signs: Last Vital Signs Pulse 63 12/15/23 09:33 Resp 16 12/15/23 09:33 BP 114/86 12/15/23 09:33 Pulse Ox 97 12/15/23 09:33 Oxygen Delivery Method Room Air 12/15/23 09:33 BMI result Body Mass Index 37.2 Tobacco/Smoking Status: Tobacco use Status Tobacco use date assessed 09/08/23 12/15/23 09:23 Patient Tobacco Use Status Former Tobacco user 12/15/23 09:23 e-Cigarette/Vaping Use Currently Using 12/15/23 09:23 PHQ-9: PHQ-9 Score PHQ-9: Total score 15 12/16/23 09:10 Depression Screening Interpretation: Positive Thrive Assessment: Date of Thrive Assessment Date Thrive assessed 09/08/23 12/15/23 09:23 Results AMB Hemoglobin A1c AMB Hemoglobin A1c 7.6 % Last Edit by Steph Smart CMA on 12/15/23 09:40 Results Reviewed Results Reviewed: Laboratory Last Values Hgb A1c (Clinic) 7.6 % (4.0-6.0) H 12/15/23 09:38 Assessment and Plan Assessment & Plan (1) MDD (major depressive disorder), recurrent episode: Code(s): F33.9 - Major depressive disorder, recurrent, unspecified Qualifiers: Major depression episode severity: moderate Qualified Code(s): F33.1 - Major depressive disorder, recurrent, moderate (2) DM type 2 causing complication: Code(s): E11.8 - Type 2 diabetes mellitus with unspecified complications (3) CAD (coronary artery disease): Code(s): I25.10 - Atherosclerotic heart disease of [place] coronary artery without angina pectoris Qualifiers: Coronary Disease-Associated Artery/Lesion type: [place] artery [place] vs. transplanted heart: [place] heart Associated angina: without angina Qualified Code(s): I25.10 - Atherosclerotic heart disease of [place] coronary artery without angina pectoris (4) JONATHON (generalized anxiety disorder): Code(s): F41.1 - Generalized anxiety disorder (5) Right ankle instability: Code(s): M25.371 - Other instability, right ankle (6) HTN (hypertension): Code(s): I10 - Essential (primary) hypertension Qualifiers: Hypertension type: secondary to endocrine disorders Qualified Code(s): I15.2 - Hypertension secondary to endocrine disorders (7) Mild intermittent asthma in adult without complication: Code(s): J45.20 - Mild intermittent asthma, uncomplicated (8) IGNACIO on CPAP: Code(s): G47.33 - Obstructive sleep apnea (adult) (pediatric) (9) Seasonal allergies: Code(s): J30.2 - Other seasonal allergic rhinitis (10) Cervical cancer screening: Code(s): Z12.4 - Encounter for screening for malignant neoplasm of cervix Orders: Orders AMB Hemoglobin A1c 12/15/23 E11.8 - Type 2 diabetes mellitus with unspecified complications Referrals CHILD CARE COUNSELOR Referral Z12.4 - Encounter for screening for malignant neoplasm of cervix Nurse Navigator Referral F33.1 - Major depressive disorder, recurrent, moderate, F41.1 - Generalized anxiety disorder Medications: New metoprolol tartrate 25 mg PO ONCE 90 tabs 0RF atorvastatin 10 mg PO BEDTIME 90 tabs 0RF Refilled omeprazole 20 mg PO DAILY 90 caps 0RF Coding Level of Care Code Est Pt Level 5 (83276) Complex EM visit Add On G2211 Diagnoses Moderate episode of recurrent major depressive disorder F33.1 Major depression episode severity: moderate DM type 2 causing complication E11.8 Coronary artery disease involving [place] coronary artery of [place] heart without angina pectoris I25.10 Coronary Disease-Associated Artery/Lesion type: [place] artery [place] vs. transplanted heart: [place] heart Associated angina: without angina JONATHON (generalized anxiety disorder) F41.1 Right ankle instability M25.371 Hypertension due to endocrine disorder I15.2 Hypertension type: secondary to endocrine disorders Mild intermittent asthma in adult without complication J45.20 IGNACIO on CPAP G47.33 Seasonal allergies J30.2 Cervical cancer screening Z12.4 Additional Codes JONATHON-7 Assessment Billing - JONATHON-7 Assessment Tool: JONATHON-7 Assessment [id number] ([id number])
[2023-12-15 09:33] VITALS: BP 114/86; PULSE 63; RESP 16; O2SAT 97; BMI 37.2
== END 2023-12-15 10:55 | disposition home or self-care (01) ==
PROVIDERS: PCP Nurse Practitioner Family; Visit Provider Nurse Practitioner Family
DX: E11.8 Type 2 diabetes mellitus with unspecified complications (principal)
CPT/HCPCS: 83036; 96127; 99215; G2211

== ENCOUNTER 2023-12-15 11:18 | Outpatient (REF) | payer OTHER, SELFPAY ==
[2023-12-15 14:58] LABS: Creatinine Urine 161.29 mg/dL; Microalbum/Creatinine Ratio Ur 26.6 ug/mg cr (<30)
[2023-12-15 15:03] LABS: Estimated Average Glucose 169 mg/dL; Hemoglobin A1c % 7.5 % (<6.0)
[2023-12-15 15:13] LABS: Alanine Aminotransferase 32 U/L (0-31); Alkaline Phosphatase 103 U/L (39-117); Anion Gap 10 (12-20); Aspartate Amino Transferase 30 U/L (5-31); Bilirubin Total 0.3 mg/dL (0.0-1.0); Blood Urea Nitrogen 12 mg/dL (9-16); Calcium 9.7 mg/dL (8.4-10.2); Carbon Dioxide 32 mmol/L (22-29); Chloride 100 mmol/L (96-108); Cholesterol 165 mg/dL (<200); Estimated Glomerular Filt Rate > 60; Glucose Fasting 133 mg/dL (60-99); HDL Cholesterol 31 mg/dL (>40); LDL Cholesterol Calculated 107 mg/dL (<100); Sodium 138 mmol/L (135-145); Total Protein 7.4 g/dL (6.5-8.0); Triglycerides 138 mg/dL (<150)
[2023-12-15 15:20] LABS: TSH reflex Free T4 2.44 uIU/mL (0.32-4.0)
[2023-12-15 15:32] LABS: Folate 4.8 ng/mL (> or = 4.0); Vitamin B12 484 pg/mL (200-900)
[2023-12-21 12:49] LABS: VITAMIN D (1,25 OH) D3 60 pg/mL; Vit D (1,25-Dihydroxy) Total 60 pg/mL (18-72); Vitamin D (1,25 OH) D2 <8 pg/mL
== END 2023-12-15 11:19 | disposition home or self-care (01) ==
LOC: HO.WFDLDS 11:18
PROVIDERS: Visit Provider Nurse Practitioner Family
DX: E11.8 Type 2 diabetes mellitus with unspecified complications (principal); I10 Essential (primary) hypertension
CPT/HCPCS: 36415; 80053; 80061; 82043; 82570; 82607; 82652; 82746; 83036; 84443

== ENCOUNTER 2023-12-26 10:51 | Outpatient (AMB) | payer OTHER, SELFPAY ==
--- NOTE | 2023-12-26 10:56 | A.OFFVIS_ITS ---
Vital Signs 12/26/23 10:58 Height 5 ft 3 in Weight 213 lb BMI 37.7 BP 112/62 Blood Pressure Location Lt brachial Position Sitting Pulse 70 Pulse Source Pulse Oximeter Pulse Oximetry (%) 99 Oxygen Delivery Method Room Air Intake Visit Reasons: asthma Waiter/Waitress Take Out Required: No [employer] Supervisor: [employer] Supervisor offered & declined Accompanied by: Self / Same As Patient Allergies hydrocodone [From VICODIN] Allergy (Mild, Verified 12/26/23 11:01) HIVES oxycodone [From PERCOCET] Allergy (Mild, Verified 12/26/23 11:01) HIVES azithromycin [AZITHROMYCIN] Allergy (Unknown, Verified 12/26/23 11:01) NAUSEA & VOMITING erythromycin base [From ERYTHROCIN] Allergy (Unknown, Verified 12/26/23 11:01) NAUSEA & VOMITING Medication List - Last Reconciled 12/26/23 by Sofya Arita LPN acetaminophen (Tylenol Extra Strength) 1,000 mg (2 x 500 mg) PO Q8H PRN albuterol sulfate 90 mcg/actuation 2 puffs inhalation Q4-6H PRN atorvastatin 10 mg PO BEDTIME blood sugar diagnostic (FreeStyle Lite Strips) As directed blood-glucose meter (FreeStyle [place] Lite kit) As directed bupropion HCl XL 300 mg PO DAILY fluticasone propionate 50 mcg/actuation 1 spray intranasal BID fluticasone propionate 113 mcg/actuation 1 inh inhalation BID ibuprofen (IBU-200) 400 mg PO Q8H lancets (FreeStyle Lancets) As directed lidocaine 5% 1 patch topical DAILY 30 days lisinopril 5 mg PO DAILY metformin ER 750 mg PO BID metoprolol tartrate 25 mg PO ONCE omeprazole 20 mg PO DAILY peg 3350-electrolytes 236-22.74-6.74 -5.86 gram (Golytely) 240 mL PO Q10M sumatriptan succinate (Imitrex) take 1 tab at onset of headache; if no relief, may repeat 1 tab after at least 2 hrs; max = 2 tabs/24 hrs PO HPI HPI asthma: Details: Linda is a pleasant 43 year old, former smoker with 20 pack year history, currently vaping nicotine and THC for the past year with underlying asthma, lupus, IGNACIO, HTN, bipolar I, and DMII. At the last visit, ICS was sent in as she reported chest tightness, dyspnea with or without exertion and occasional dry cough, minimally relieved by albuterol. Unfortunately she has yet to start and after further review, inhaler requires PA. No message rc'd from pharmacy. [facility] Medical History (Updated 12/19/23 @ 09:07 by Minerva Zuleta, [facility]) Nephrolithiasis Asthma Sleep apnea Migraine Sinusitis Breast pain, left Hypertension Sleep apnea Bipolar 1 disorder Depression Anxiety delivery delivered Diabetes Sciatica Kidney infection Kidney stones HTN (hypertension) Fibromyalgia Lupus Surgical History H/O section H/O: hysterectomy Family History Maternal Grandmother HTN (hypertension) Diabetes Cancer Other FH: mental illness Substance use Social History Housing: Apartment Alcohol intake: never Patient Tobacco Use Status: Former Tobacco user e-Cigarette/Vaping Use: Currently Using Substance Use Type: Marijuana service: Yes Current occupational status: employed 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 Current occupational exposures/hazards: No Cognitive needs: No Hearing needs: No Vision needs: Yes (glasses) Review of Systems Const Denies chills, Denies excessive sweating, Denies fever(s) and Denies night sweats Eyes Denies dry eyes, Denies irritation and Denies itchy eyes ENT Reports Normal hearing present, Denies nasal discharge and Denies sore throat Card Denies chest pain, Denies chest pain at rest, Denies chest pain with activity, Denies claudication, Denies leg edema and Denies orthopnea Resp Denies chest congestion, Denies excessive phlegm production, Denies pain on inspiration, Denies pain with cough and Denies stridor Musc Denies myalgias Neuro Reports Normal hearing present Endo Denies excessive sweating Kvng/Lymph Denies lymphadenopathy Aller/Immun Denies itchy eyes and Denies seasonal rhinorrhea Physical Exam Vital Signs: Last Vital Signs Pulse 70 12/26/23 10:58 BP 112/62 12/26/23 10:58 Pulse Ox 99 12/26/23 10:58 Oxygen Delivery Method Room Air 12/26/23 10:58 BMI result Body Mass Index 37.7 Const General: cooperative, healthy appearing, comfortable, no acute distress, well developed and alert Nutritional Appearance: obese Orientation/consciousness: patient oriented x3 Limitations: no limitations HEENT Head: Yes normal to inspection, Yes normocephalic and Yes atraumatic Ears: hearing grossly normal bilaterally and external ears normal Eyes General: appearance normal, both eyes and all related structures Eyelids: Yes eyelids normal Sclerae: sclerae normal EOM: EOMs intact bilaterally Neck Neck: Yes normal visual inspection and Yes no lymphadenopathy Lymphatic: no lymphadenopathy noted Chest Chest palpation & inspection: normal inspection of the chest Resp Effort & Inspection: normal respiratory effort, able to speak in complete sentences, no audible wheezes, no cough, no stridor, not tachypneic, no tripod positioning and no use of accessory muscles Auscultation: clear to auscultation bilaterally Cardio Jugular venous distension: no JVD Rate: regular rate Rhythm: regular rhythm Skin Other: warm, dry General skin exam: no rashes or lesions noted Neuro General: patient oriented x3 Cranial nerves: Yes Normal hearing present Cognition (Neuro): normal cognition Gait exam (Neuro): Normal gait present Extrem General: Yes normal to inspection, Yes capillary refill normal, Yes no clubbing, cyanosis or edema and Yes no pedal edema Psych Appearance: grossly normal and well kempt Speech and movement: Normal speech and movement present and Clear speech present Affect: normal affect Attitude: cooperative Thought process: Normal thought process present Thought content: Normal thought content present Insight: Good insight present (Psych) Judgement: Good judgement present (Psych) Assessment & Plan Assessment & Plan (1) Asthma: Code(s): J45.909 - Unspecified asthma, uncomplicated Category: Medical (2) Environmental allergies: Code(s): Z91.09 - Other allergy status, other than to drugs and biological substances Category: Medical (3) History of sleep apnea: Code(s): Z86.69 - Personal history of other diseases of the nervous system and sense organs Category: Medical (4) Lupus: Code(s): M32.9 - Systemic lupus erythematosus, unspecified Category: Medical Plan Staff made call to pharmacy and requires PA, will complete so patient can trial ICS. Discussed smoking cessation, will trial nicotrol. All questions were answer ed and patient is in agreement of plan. Will follow up to review response to inhaler and results of PFT when performed or sooner if needed. Medications: New nicotine (Nicotrol) 10 mg inhalation Q2-4H PRN 168 ea 0RF nicotine cravings Coding Level of Care Code Est Pt Level 3 (72291) Diagnoses Asthma J45.909 Environmental allergies Z91.09 History of sleep apnea Z86.69 Lupus M32.9
[2023-12-26 10:58] VITALS: BP 112/62; PULSE 70; O2SAT 99; BMI 37.7
== END 2023-12-26 11:43 | disposition home or self-care (01) ==
PROVIDERS: PCP Nurse Practitioner Family; Visit Provider Nurse Practitioner Family
DX: J45.909 Unspecified asthma, uncomplicated (principal); Z91.09 Other allergy status, other than to drugs and biological substances; Z86.69 Personal history of other diseases of the nervous system and sense organs; M32.9 Systemic lupus erythematosus, unspecified
CPT/HCPCS: 99213

== ENCOUNTER → 2023-12-26 10:51 | Outpatient (BNVA) | payer OTHER, SELFPAY | PROVIDERS: PCP Nurse Practitioner Family; Visit Provider Nurse Practitioner Family | DX: J45.909 Unspecified asthma, uncomplicated (principal); G47.33 Obstructive sleep apnea (adult) (pediatric); M32.9 Systemic lupus erythematosus, unspecified; F17.290 Nicotine dependence, other tobacco product, uncomplicated; Z86.69 Personal history of other diseases of the nervous system and sense organs; Z91.09 Other allergy status, other than to drugs and biological substances | CPT/HCPCS: 99212 ==

== ENCOUNTER 2024-01-16 07:40 | Outpatient (AMB) | payer OTHER, SELFPAY ==
[2024-01-16 07:43] VITALS: BMI 37.7
--- NOTE | 2024-01-16 07:43 | A.OFFVIS_ITS ---
Vital Signs 01/16/24 07:43 Height 5 ft 3 in Weight 213 lb BMI 37.7 Intake Visit Reasons: 3 month f/u Intake Note: Patient presents for 3 month follow up. Allergies hydrocodone [From VICODIN] Allergy (Mild, Verified 01/23/24 10:27) HIVES oxycodone [From PERCOCET] Allergy (Mild, Verified 01/23/24 10:27) HIVES azithromycin [AZITHROMYCIN] Allergy (Unknown, Verified 01/23/24 10:27) NAUSEA & VOMITING erythromycin base [From ERYTHROCIN] Allergy (Unknown, Verified 01/23/24 10:27) NAUSEA & VOMITING Medication List - Last Reconciled 01/16/24 by DYLON Gutierrez acetaminophen (Tylenol Extra Strength) 1,000 mg (2 x 500 mg) PO Q8H PRN albuterol sulfate 90 mcg/actuation 2 puffs inhalation Q4-6H PRN atorvastatin 10 mg PO BEDTIME blood sugar diagnostic (FreeStyle Lite Strips) As directed blood-glucose meter (FreeStyle [place] Lite kit) As directed bupropion HCl XL 300 mg PO DAILY fluticasone furoate 100 mcg/actuation (Arnuity Ellipta) 1 inh inhalation DAILY fluticasone propionate 50 mcg/actuation 1 spray intranasal BID ibuprofen (IBU-200) 400 mg PO Q8H lancets (FreeStyle Lancets) As directed lidocaine 5% 1 patch topical DAILY 30 days lisinopril 5 mg PO DAILY meloxicam 15 mg PO DAILY metformin ER 750 mg PO BID metoprolol tartrate 25 mg PO ONCE nicotine (Nicotrol) 10 mg inhalation Q2-4H PRN omeprazole 20 mg PO DAILY peg 3350-electrolytes 236-22.74-6.74 -5.86 gram (Golytely) 240 mL PO Q10M sumatriptan succinate (Imitrex) take 1 tab at onset of headache; if no relief, may repeat 1 tab after at least 2 hrs; max = 2 tabs/24 hrs PO HPI Comments Details: 43-yr-old female presents for follow-up visit of sleep apnea. Pt denies any significant interval medical history changes. Since the last visit, pt underwent In-lab PSG which revealed: AHI 7.6/hr, REM AHI 24/hr w/ O2 benigno 82% w/ SpO2 < 88% x's 7.5 min, and average SpO2 92%; Periodic limb movement of sleep (PLMS) index: 71.5/hr; PLMS arousal index: 4.6/hr. Since, pt has started APAP tx. Pty states she is working w/ the respiratory [employer] to improve her compliance. Sometimes she forgets to put the CPAP on. She does endorse restless legs, nocturnal leg cramps, restless sleep. She does use weighted blankets which helps some. Restless legs can prevent her from falling asleep. She is still very sleepy during the day. [facility] Medical History (Updated 01/22/24 @ 17:46 by Minerva Zuleta, [facility]) Periodic limb movements of sleep Anemia Asthma Nephrolithiasis Sleep apnea Migraine Sinusitis Breast pain, left Hypertension Sleep apnea Bipolar 1 disorder Depression Anxiety delivery delivered Diabetes Sciatica Kidney infection Kidney stones HTN (hypertension) Fibromyalgia Lupus Surgical History H/O section H/O: hysterectomy Family History Maternal Grandmother HTN (hypertension) Diabetes Cancer Other FH: mental illness Substance use Social History Housing: Apartment Alcohol intake: never Patient Tobacco Use Status: Former Tobacco user e-Cigarette/Vaping Use: Currently Using Substance Use Type: Marijuana service: Yes Current occupational status: employed 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 Current occupational exposures/hazards: No Cognitive needs: No Hearing needs: No Vision needs: Yes (glasses) Physical Exam Vital Signs: BMI result Body Mass Index 37.7 Const General: no acute distress and tired appearing Orientation/consciousness: patient oriented x3 HEENT Other: Mallampati stage Resp Effort & Inspection: normal respiratory effort and able to speak in complete sentences Neuro General: patient oriented x3 Psych Mental Status: mental status grossly normal Speech and movement: Clear speech present Attitude: cooperative Assessment & Plan Assessment & Plan (1) Obstructive sleep apnea: Comment: 10/02/23 in-lab PSG: In-lab PSG which revealed: AHI 7.6/hr, REM AHI 24/hr w/ O2 benigno 82% w/ SpO2 < 88% x's 7.5 min, and average SpO2 92%; Periodic limb movement of sleep (PLMS) index: 71.5/hr; PLMS arousal index: 4.6/hr. Code(s): G47.33 - Obstructive sleep apnea (adult) (pediatric) Category: Medical (2) Leg cramps: Code(s): R25.2 - Cramp and spasm Category: Medical (3) Restless leg syndrome: Code(s): G25.81 - Restless legs syndrome Category: Medical (4) Excessive daytime sleepiness: Comment: w/ rapid onset REM- ? symptom of untreated sleep apnea, ? narcolepsy (w/ possible cataplexy) Code(s): G47.19 - Other hypersomnia Category: Medical Plan Reviewed in-lab sleep study- results c/w mild IGNACIO w/ increased severity in REM sleep and PLMS. Continue APAP [id number] with goal of using APAP nightly > 4 hrs. Pt is committed to using and increasing PAP tx usgae. Will request updated compliance report to determine PAP efficacy. Clean CPAP machine and supplies routinely. Change CPAP supplies routinely. Pt to contact us or respiratory company with any questions or concerns. Check labs for common etiologies of RLS/PLMS. Pulmonary f/u as scheduled. Trial Gabapentin 100mg cap- 1-4 caps q evening through bedtime. Information shared on resources for Restless leg Syndrome and PLMS. Monitor headaches. Will follow-up upon review of above and patient to follow-up in clinic in 6 months or sooner prn. Orders: Orders Ferritin 01/16/24 R79.89 - Other specified abnormal findings of blood chemistry, D64.9 - Anemia, unspecified IRON PROFILE 01/16/24 R79.89 - Other specified abnormal findings of blood chemistry, D64.9 - Anemia, unspecified Methylmalonic Acid 01/16/24 R79.89 - Other specified abnormal findings of blood chemistry, D64.9 - Anemia, unspecified Homocysteine 01/16/24 R79.89 - Other specified abnormal findings of blood chemistry, D64.9 - Anemia, unspecified Magnesium 01/16/24 R25.2 - Cramp and spasm Medications: New gabapentin 100 - 400 mg (1 - 4 x 100 mg) PO BEDTIME 90 caps 3RF 30 days G25.81 - Restless legs syndrome, G47.61 - Periodic limb movement disorder Coding Level of Care Code Est Pt Level 4 (95222) Diagnoses Obstructive sleep apnea G47.33 Leg cramps R25.2 Restless leg syndrome G25.81 Excessive daytime sleepiness G47.19
== END 2024-01-16 08:33 | disposition home or self-care (01) ==
PROVIDERS: PCP Nurse Practitioner Family; Visit Provider Nurse Practitioner Family
DX: G47.33 Obstructive sleep apnea (adult) (pediatric) (principal); R25.2 Cramp and spasm; G25.81 Restless legs syndrome; G47.19 Other hypersomnia
CPT/HCPCS: 99214

== ENCOUNTER → 2024-01-16 07:40 | Outpatient (BNVA) | payer OTHER, SELFPAY | PROVIDERS: PCP Nurse Practitioner Family; Visit Provider Nurse Practitioner Family | DX: G47.33 Obstructive sleep apnea (adult) (pediatric) (principal); G25.81 Restless legs syndrome; G47.19 Other hypersomnia; R79.89 Other specified abnormal findings of blood chemistry; G47.61 Periodic limb movement disorder; D64.9 Anemia, unspecified | CPT/HCPCS: 99212 ==

== ENCOUNTER 2024-01-22 12:53 | Outpatient (AMB) | payer OTHER, SELFPAY ==
--- NOTE | 2024-01-22 13:05 | MHC.PC.OV ---
Vital Signs 01/22/24 13:09 Height 5 ft 3 in Weight 208 lb 6 oz BMI 36.9 BP 122/72 Blood Pressure Location Rt brachial Position Sitting Respiration 14 Pulse 67 Pulse Source Pulse Oximeter Pulse Oximetry (%) 97 Oxygen Delivery Method Room Air Intake Visit Reasons: f/u Intake Note: routine follow up Allergies hydrocodone [From VICODIN] Allergy (Mild, Verified 01/22/24 13:52) HIVES oxycodone [From PERCOCET] Allergy (Mild, Verified 01/22/24 13:52) HIVES azithromycin [AZITHROMYCIN] Allergy (Unknown, Verified 01/22/24 13:52) NAUSEA & VOMITING erythromycin base [From ERYTHROCIN] Allergy (Unknown, Verified 01/22/24 13:52) NAUSEA & VOMITING Medication List - Last Reconciled 01/22/24 by Minerva Zuleta, FRONT DESK SPECIALIST- acetaminophen (Tylenol Extra Strength) 1,000 mg (2 x 500 mg) PO Q8H PRN albuterol sulfate 90 mcg/actuation 2 puffs inhalation Q4-6H PRN atorvastatin 10 mg PO BEDTIME blood sugar diagnostic (FreeStyle Lite Strips) As directed blood-glucose meter (FreeStyle [place] Lite kit) As directed bupropion HCl XL 300 mg PO DAILY fluticasone furoate 100 mcg/actuation (Arnuity Ellipta) 1 inh inhalation DAILY fluticasone propionate 50 mcg/actuation 1 spray intranasal BID gabapentin 100 - 400 mg (1 - 4 x 100 mg) PO BEDTIME 30 days ibuprofen (IBU-200) 400 mg PO Q8H lancets (FreeStyle Lancets) As directed lidocaine 5% 1 patch topical DAILY 30 days lisinopril 5 mg PO DAILY meloxicam 15 mg PO DAILY metformin ER 750 mg PO BID metoprolol tartrate 25 mg PO ONCE nicotine (Nicotrol) 10 mg inhalation Q2-4H PRN omeprazole 20 mg PO DAILY peg 3350-electrolytes 236-22.74-6.74 -5.86 gram (Golytely) 240 mL PO Q10M sumatriptan succinate (Imitrex) take 1 tab at onset of headache; if no relief, may repeat 1 tab after at least 2 hrs; max = 2 tabs/24 hrs PO Tobacco use date assessed: 09/08/23 Dental Screening Dental Screen Date: 09/08/23 HPI HPI Comments History of Present Illness Details 43-year-old female with diabetes 2, asthma, anxiety, MDD, constipation, bipolar 1 disorder, sleep apnea, renal stones, PTSD, lupus, hypertension, fibromyalgia, 3.6 cm hypodense lesion in the liver at the junction of the right and left hepatic lobes with thin rim calcification along the right lateral wall of the lesion, CAD, . 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 Mammo 10/17/23 Grouped calcifications in the right breast warrant additional mammographic imaging with magnification.No mammographic signs of malignancy left breast. ASSESSMENT: BI-RADS BI-RADS 0 - Incomplete: Needs additional Imaging. RECOMMENDATION: Additional views of the right breast, 12/06/23 Dr Garcai MM stereotactic bi opsy RT negative p athology Here today for close interim follow up chronic conditions Was able to establish care with a counselor, will be establishing care with a prescriber Has GI f/u scheduled; cont w/ black stools and BRB. No change. Note from 12/04/23 at [facility] reviewed. Plan for colon/EGD, CT scan for liver lesion scheduled this week . Will work on scheduling DM Eye exam Taking gabapentin this is going good. RLS has improved greatly. right ankle is better; cont w/ pain at times; Wearing brace and high top sneakers needs rx for ODT zofran, reports the oral does not work this was sent in advised there may be poor insurance coverage needs rx refill for imitrex -- sent today, again advised if not able to get check w/ insurance as this may be an issue having trouble swallowing feels like choking EGD scheduled 04/2024 Notes reviewed Neuro consult 01/2024 labs ordered, cont APAP, Trial Gabapentin 100mg cap- 1-4 caps q evening through bedtime. RTO 6 mo Pulm consult 12/25/23: nicotrol, ics, pft Exam: Awake alert NAD scleras nonicteric bilat MMM RRR LS CTAB Abd soft, nontender, normoactive BS pain over transverse low back and bilat hips w/ palpation and movement Mood and affect appropriate Plan Schedule DME. Cont meds for DM. FU with care team Cont all medications as prescribed. choking precautions RTO in May for routine f/u sooner PRN This note is constructed using voice recognition software. While every effort has been made to ensure accuracy in plant taxonomy teacher, still errors may have been included Sometimes, these errors may affect the content or meaning of the given sentence . Total time spent caring for the patient today was 45 minutes. This includes time spent before the visit reviewing the chart, time spent during the visit, and time spent after the visit on documentation [facility] Medical History (Updated 01/22/24 @ 17:46 by Minerva Zuleta [facility]) Periodic limb movements of sleep Anemia Asthma Nephrolithiasis Sleep apnea Migraine Sinusitis Breast pain, left Hypertension Sleep apnea Bipolar 1 disorder Depression Anxiety delivery delivered Diabetes Sciatica Kidney infection Kidney stones HTN (hypertension) Fibromyalgia Lupus Surgical History H/O section H/O: hysterectomy Family History Maternal Grandmother HTN (hypertension) Diabetes Cancer Other FH: mental illness Substance use Social History Housing: Apartment Alcohol intake: never Patient Tobacco Use Status: Former Tobacco user e-Cigarette/Vaping Use: Currently Using Substance Use Type: Marijuana service: Yes Current occupational status: employed 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 1. Little interest or pleasure in doing things: more than half the days 2. Feeling down, depressed, or hopeless: more than half the days 3. Trouble falling or staying asleep, or sleeping too much: more than half the days 4. Feeling tired or having little energy: more than half the days 5. Poor appetite or overeating: more than half the days 6. Feeling bad about yourself - or that you are a failure or have let yourself or your family down: more than half the days 7. Trouble concentrating on things, such as reading the newspaper or watching television: more than half the days 8. Moving or speaking so slowly that other people could have noticed. Or the opposite - being so fidgety or restless that you have been moving around a lot more than usual: several days 9. Thoughts that you would be better off or of hurting yourself in some way: not at all Total score: 15 34890 - PHQ-9 Billing: Yes Source: Developed by Drs. Rob Parry, Tana Rowley, Gen Mcdonald and colleagues, with an educational ezra from [employer]. Thrive Questionnaire Date Thrive assessed: 09/08/23 JONATHON-7 AMB Questionnaire JONATHON-7 Date JONATHON - 7 assessed: 01/22/24 Feeling nervous, anxious, or on edge: 2 = More than half the days Not being able to stop or control worryin = More than half the days Worrying too much about different things: 2 = More than half the days Trouble relaxin = More than half the days Being so restless that it is hard to sit still: 2 = More than half the days Becoming easily annoyed or irritable: 3 = Nearly every day Feeling afraid as if something awful might happen: 2 = More than half the days Total JONATHON-7 score (0-4 normal; 5-9 mild; 10-14 moderate; 15-21 severe): 15 Source: Developed by Drs. Rob Parry, Tana Rowley, Gen Mcdonald and colleagues, with an educational ezra from [employer]. JONATHON-7 Assessment Billing JONATHON-7 Assessment Tool: JONATHON-7 Assessment 21624 Physical exam (Primary Care) Vital Signs: Last Vital Signs Pulse 67 01/22/24 13:09 Resp 14 01/22/24 13:09 BP 122/72 01/22/24 13:09 Pulse Ox 97 01/22/24 13:09 Oxygen Delivery Method Room Air 01/22/24 13:09 BMI result Body Mass Index 36.9 Tobacco/Smoking Status: Tobacco use Status Tobacco use date assessed 09/08/23 01/22/24 13:06 Patient Tobacco Use Status Former Tobacco user 01/22/24 13:06 e-Cigarette/Vaping Use Currently Using 01/22/24 13:06 PHQ-9: PHQ-9 Score PHQ-9: Total score 15 01/22/24 13:46 Thrive Assessment: Date of Thrive Assessment Date Thrive assessed 09/08/23 01/22/24 13:06 Coding Level of Care Code Est Pt Level 5 (59278) Complex EM visit Add On G2211 Diagnoses Restless leg syndrome G25.81 DM type 2 causing complication E11.8 Migraine without aura and without status migrainosus, not intractable G43.009 Status migrainosus presence: without status migrainosus Intractability: not intractable Dysphagia, unspecified type R13.10 Dysphagia type: unspecified Moderate episode of recurrent major depressive disorder F33.1 Major depression episode severity: moderate Hypertension due to endocrine disorder I15.2 Hypertension type: secondary to endocrine disorders Coronary artery disease involving marshall coronary artery of marshall heart without angina pectoris I25.10 Coronary Disease-Associated Artery/Lesion type: marshall artery [place] vs. transplanted heart: marshall heart Associated angina: without angina Low vitamin B12 level R79.89 Additional Codes JONATHON-7 Assessment Billing - JONATHON-7 Assessment Tool: JONATHON-7 Assessment 34947 ([id number]) Assessment & Plan Assessment & Plan (1) Restless leg syndrome: Code(s): G25.81 - Restless legs syndrome Category: Medical Plan: . (2) DM type 2 causing complication: Code(s): E11.8 - Type 2 diabetes mellitus with unspecified complications Category: Medical Plan: . (3) Migraine headache without aura: Code(s): G43.009 - Migraine without aura, not intractable, without status migrainosus Category: Medical Qualifiers: Status migrainosus presence: without status migrainosus Intractability: not intractable Qualified Code(s): G43.009 - Migraine without aura, not intractable, without status migrainosus Plan: . (4) Dysphagia: Comment: subjective Code(s): R13.10 - Dysphagia, unspecified Category: Medical Qualifiers: Dysphagia type: unspecified Qualified Code(s): R13.10 - Dysphagia, unspecified Plan: . (5) MDD (major depressive disorder), recurrent episode: Code(s): F33.9 - Major depressive disorder, recurrent, unspecified Category: Medical Qualifiers: Major depression episode severity: moderate Qualified Code(s): F33.1 - Major depressive disorder, recurrent, moderate Plan: . (6) HTN (hypertension): Code(s): I10 - Essential (primary) hypertension Category: Medical Qualifiers: Hypertension type: secondary to endocrine disorders Qualified Code(s): I15.2 - Hypertension secondary to endocrine disorders (7) CAD (coronary artery disease): Code(s): I25.10 - Atherosclerotic heart disease of marshall coronary artery without angina pectoris Category: Medical Qualifiers: Coronary Disease-Associated Artery/Lesion type: marshall artery [place] vs. transplanted heart: marshall heart Associated angina: without angina Qualified Code(s): I25.10 - Atherosclerotic heart disease of marshall coronary artery without angina pectoris (8) Low vitamin B12 level: Code(s): R79.89 - Other specified abnormal findings of blood chemistry Category: Medical Plan . Orders: Orders Complete Blood Count no Diff 05/11/24 E11.8 - Type 2 diabetes mellitus with unspecified complications, I15.2 - Hypertension secondary to endocrine disorders, I25.10 - Atherosclerotic heart disease of marshall coronary artery without angina pectoris, R79.89 - Other specified abnormal findings of blood chemistry Lipid Panel 05/11/24 E11.8 - Type 2 diabetes mellitus with unspecified complications, I15.2 - Hypertension secondary to endocrine disorders, I25.10 - Atherosclerotic heart disease of marshall coronary artery without angina pectoris, R79.89 - Other specified abnormal findings of blood chemistry Microalbumin, Random (w Creat) 05/11/24 E11.8 - Type 2 diabetes mellitus with unspecified complications, I15.2 - Hypertension secondary to endocrine disorders, I25.10 - Atherosclerotic heart disease of marshall coronary artery without angina pectoris, R79.89 - Other specified abnormal findings of blood chemistry TSH reflex Free T4 05/11/24 E11.8 - Type 2 diabetes mellitus with unspecified complications, I15.2 - Hypertension secondary to endocrine disorders, I25.10 - Atherosclerotic heart disease of marshall coronary artery without angina pectoris, R79.89 - Other specified abnormal findings of blood chemistry Vitamin D 25-OH Total 05/11/24 E11.8 - Type 2 diabetes mellitus with unspecified complications, I15.2 - Hypertension secondary to endocrine disorders, I25.10 - Atherosclerotic heart disease of marshall coronary artery without angina pectoris, R79.89 - Other specified abnormal findings of blood chemistry Comprehensive [place]. Panel Fast 05/11/24 E11.8 - Type 2 diabetes mellitus with unspecified complications, I15.2 - Hypertension secondary to endocrine disorders, I25.10 - Atherosclerotic heart disease of marshall coronary artery without angina pectoris, R79.89 - Other specified abnormal findings of blood chemistry Hemoglobin A1c 05/11/24 E11.8 - Type 2 diabetes mellitus with unspecified complications, I15.2 - Hypertension secondary to endocrine disorders, I25.10 - Atherosclerotic heart disease of marshall coronary artery without angina pectoris, R79.89 - Other specified abnormal findings of blood chemistry IRON PROFILE 05/11/24 E11.8 - Type 2 diabetes mellitus with unspecified complications, I15.2 - Hypertension secondary to endocrine disorders, I25.10 - Atherosclerotic heart disease of marshall coronary artery without angina pectoris, R79.89 - Other specified abnormal findings of blood chemistry Vitamin B12 and Folate 05/11/24 E11.8 - Type 2 diabetes mellitus with unspecified complications, I15.2 - Hypertension secondary to endocrine disorders, I25.10 - Atherosclerotic heart disease of marshall coronary artery without angina pectoris, R79.89 - Other specified abnormal findings of blood chemistry Medications: New ondansetron 4 mg PO Q8H 5 days PRN 15 tabs 12RF nausea and vomiting Changed From sumatriptan succinate (Imitrex) take 1 tab at onset of headache; if no relief, may repeat 1 tab after at least 2 hrs; max = 2 tabs/24 hrs PO To sumatriptan succinate (Imitrex) 100 mg orally PRN; 9 tabs 4RF migraine headache
[2024-01-22 13:09] VITALS: BP 122/72; PULSE 67; RESP 14; O2SAT 97; BMI 36.9
== END 2024-01-22 13:30 | disposition home or self-care (01) ==
PROVIDERS: PCP Nurse Practitioner Family; Visit Provider Nurse Practitioner Family
DX: E11.8 Type 2 diabetes mellitus with unspecified complications (principal); F33.1 Major depressive disorder, recurrent, moderate; G25.81 Restless legs syndrome; G43.009 Migraine without aura, not intractable, without status migrainosus; R13.10 Dysphagia, unspecified; I15.2 Hypertension secondary to endocrine disorders; I25.10 Atherosclerotic heart disease of native coronary artery without angina pectoris; R79.89 Other specified abnormal findings of blood chemistry

== ENCOUNTER → 2024-01-22 12:53 | Outpatient (BNVA) | payer OTHER, SELFPAY | PROVIDERS: PCP Nurse Practitioner Family; Visit Provider Nurse Practitioner Family | DX: G25.81 Restless legs syndrome (principal); E11.8 Type 2 diabetes mellitus with unspecified complications; G43.009 Migraine without aura, not intractable, without status migrainosus; R13.10 Dysphagia, unspecified; F33.1 Major depressive disorder, recurrent, moderate; I15.2 Hypertension secondary to endocrine disorders; I25.10 Atherosclerotic heart disease of native coronary artery without angina pectoris; R79.89 Other specified abnormal findings of blood chemistry | CPT/HCPCS: 96127; 99212 ==

== ENCOUNTER 2024-01-23 10:11 | Outpatient (AMB) | payer OTHER, SELFPAY ==
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
--- OUTSIDE RECORDS SUMMARY | 2024-01-23 10:12 | XMS_ITS | Continuity of Care Document ---
Author Organization [facility] Adult Address [address] [place] [address]- Care Team Providers Care Commissioned Sales Associate Name Role Phone Paulina CARSON, Thu Primary Care Physician [phone] Encounter [facility] Date(s): 10/18/22 - 11/17/22 [facility] Adult [address] [place] [address]- Attending Physician: Admtr, Ar8 Allergies, Adverse Reactions, Alerts Substance Reaction Severity Status codeine Atypical migraine Active acetaminophen-oxycodone Acti ve erythromycin Oxycodone Azithromycin allergy N&V - Nausea and vomiting Active azithromycin Nausea and vomiting Active Vicodin Hives/Rash Active Percocet 5/325 Hives/Rash Active Reglan agitation (has rippe d her IVs out) increased anxiety Active Immunizations Given and Recorded Vaccine Date Status Refusal Reason tetanus/diphtheria/pertussis, acel(Tdap) 01/17/21 Recorded tetanus/diphtheria/pertussis, acel(Tdap) 03/19/12 Given SARS-CoV-2 (COVID-19) Ad26 vaccine 08/14/20 Record ed influenza virus vaccine, inactivated 1 05/23/19 Gi smiley influenza virus vaccine, inactivated 01/27/16 Give n influenza virus vaccine, inactivated 05/05/15 Give n influenza virus vaccine, inactivated 04/23/13 Give n pneumococcal 23-valent vaccine 03/06/16 Given 1Result Comment: FLU [facility] 49183-508-77 Medications albuterol 0.083% inhalation solution 3 mL [...] 14:13:00 EDT, Aerosol, Route to Pharmacy Electronically, [id number], [facility]/pharmacy #[id number], 161, cm, 10/29/20 12:39:00 [...] 10:46:27, Compound Start Date: 12/10/14 Status: Ordered Dexedrine Spansule 15 mg oral capsule, extended release 3 capsule = 45 mg, By Mouth, Daily in AM, 0 Refills, Maintenance, 01/20/15 9:03:36 Start Date: 01/20/15 Status: Ordered Flovent HFA 220 mcg/inh inhalation aerosol 2 puffs, Inhalation, 2 times a day, # 12 each, 5 Refills, [facility], 161, cm, 10/14/21 8:43:00 EDT, Height, 99.8, [...] cm, 06/04/20 0:50:00 EST, Height, 100, kg, :50:00 EST, Dry Weight Start Date: 07/21/20 Status: Ordered hydrocortisone topical 25 mg suppository 1 supp = 25 mg, Rectally, 2 times a day, # 28 supp, 0 Refills, Maintenance, 05/10/21 13:30:00 EST, Suppository, [facility]/pharmacy #[id number], Partial fill upon patient [...] Soft Stop, 03/10/20 9:11:00 EST, Tablet, [facility], 160, cm, 03/10/20 8:33:00 EST, Height, 99.9, kg, 1... Start Date: 03/10/20 Stop Date: 09/06/20 Status: Ordered lidocaine 5% topical film 1 patch, Topically, Daily, remove patches after 12 hours, # 30 patch, 0 Refills, Maintenance, 10/23/20 23:42:00 EDT, [facility]/pharmacy #[id number], Partial fill upon patient request if the prescription is for aschedule II opioid drug., 1 patch Topically Daily,x... Start Date: 10/23/20 Stop Date: 11/22/20 Status: Ordered metFORMIN 500 mg oral tablet 1 tablet, By Mouth, 2 times a day, # 60 tablet, 5 Refills, Maintenance, 02/11/22 9:47:00 EDT, [facility], 161, cm, 11/20/21 13:47:00 EDT, Height, 99.8, kg, 10/23/20 22:45:00 EDT, Dry Weight Start Date: 02/11/22 Status: Ordered Metoprolol Succinate ER 25 mg oral tablet, extended release 1 tablet, By Mouth, Daily, # 30 tablet, 2 Refills, Maintenance, 08/23/22 15:50:00 EDT, [facility], 161, cm, 11/20/21 13:47:00 EDT, Height, 99.8, kg, 10/23/20 22:45:00 EDT, Dry Weight Start Date: 08/23/22 Status: Ordered naproxen 500 mg oral tablet 1 tablet = 500 mg, By Mouth, 2 times a day, # 60 tablet, 0 Refills, Maintenance, 10/14/21 8:27:00 EDT, Tablet, [facility]/pharmacy #[id number], Partial fill upon patient request if the prescription is for a schedule II opioid drug., 161, cm, 10/14/21 8:07:00 EDT,... Start Date: 10/14/21 Stop Date: 11/13/21 Status: Ordered omeprazole 20 mg oral enteric coated capsule 1 capsule, By Mouth, 2 times a day, # 60 capsule, 2 Refills, Maintenance, 08/23/22 15:50:00 EDT, [facility], 161, cm, 11/20/21 13:47:00 EDT, Height, 99.8, kg, 10/23/20 22:45:00 EDT, Dry Weight Start Date: 08/23/22 Status: Ordered ondansetron 4 mg oral tablet, disintegrating 1 tablet = 4 mg, By Mouth, 3 times a day, # 21 tablet, 1 Refills, Maintenance, 10/18/22 14:19:00 EDT, [id number], Partial fill upon patient request if [...] 0 Refills, Maintenance, 10/14/21 8:38:00 EDT, Tablet, [facility]/pharmacy #[id number], Partial fill upon patient [...] - with severe depression/anxiety Confirmed Active Smoker. ChanissaEVRYTHNG has worked in the past x 2 but the most recent trial failed and gave patient nightmares, etc. Confirmed Active Adnexal mass - right side 7.6 cm, suspected endometrioma Confirmed Active Urinary incontinence Confirmed Active Vitamin D Deficiency Confirmed Active 1Mild, not on CPAP Social History [...] Code MRI Safety Implantable Status Assigning Authority [id number] Unknown Unknown Unknown 02/04/21 Unknown Unknown Active GS1 Laboratory * Event Display: Non BH Lab Results Authored Date: * Event Display: Non BH Lab Results Authored Date: * Event Display: Non BH Lab Results Authored Date: * Event Display: Non BH Lab Results Authored Date: * Event Display: Non BH Lab Results Authored Date: Radiology * Event Display: CT Scan Head, Non- BH Authored Date: * Event Display: MRI Knee Authored Date: * Event Display: MRI Knee Authored Date: * Event Display: X-Ray Knee, Non- BH Authored Date: * Event Display: Non BH Radiology Results Authored Date: * Event Display: Ultrasound Renal, Non BH Authored Date: * Event Display: Radiology Result Scanned Authored Date: * Event Display: X-Ray Lower Extremity, Non- BH Authored Date: * Event Display: Radiology Result Scanned Authored Date: * Event Display: X-Ray Knee, Non- BH Authored Date: * Event Display: X-Ray Ankle/Foot, Non- BH Authored Date: Patient Care team information Care Team Personnel Name: Thu Gallardo NP Position: S PCO Associate Professional Member Role: PCP Address: Address: [address], [address]rd Floor [facility] [place] [address]- [place] Name: Lucy Bateman NP Position: [facility] PCO Associate Professional Member Role: Primary Care Nurse Address: Address: [address] [place] [address]- [place] Name: Aileen Gonzalez RN Position: [facility] RN Member Role: Primary Care Nurse Name: Lakeshia Smyth RN Position: [facility] ED RN W/OE and Tasks Member Role: Primary Care Nurse Name: Fidencio Jovel RN Position: [facility] ED RN W/OE and Tasks Member Role: Primary Care Nurse Name: Tigist Fournier RN Position: S RN Member Role: Primary Care Nurse Name: Lulú Aquino RN Position: [facility] Onco RN Member Role: Primary Care Nurse Care Team Related Persons Name: BAKARI, YNES Address: home [address] [place] [address] Name: ALEXUS REYNOSO Address: home [address] [place] [address]
--- OUTSIDE RECORDS SUMMARY | 2024-01-23 10:12 | XMS_ITS | Continuity of Care Document ---
Author Organization [facility] Adult Address [address] [place] [address]- Care Team Providers Care Civil Designer Name Role Phone Paulina ROTARY DUMP OPERATOR, Thu Primary Care Physician [facility]counter [facility] Date(s): 03/07/23 - 04/06/23 [facility] Adult [address] [place] [address]- Allergies, Adverse Reactions, Alerts Substance Reaction Severity Status codeine Atypical migraine Active erythromycin Oxycodone Azithromycin allergy N&V - Nausea and vomiting Active azithromycin Nausea and vomiting Active acetaminophen-oxycodone Acti ve Vicodin Hives/Rash Active Reglan agitation (has rippe d her IVs out) increased anxiety Active Percocet 5/ Hives/Rash Active Immunizations Given and Recorded Vaccine Date Status Refusal Reason influenza virus vaccine, inactivated 03/16/23 Liang rded influenza virus vaccine, inactivated 1 05/23/19 Gi smiley influenza virus vaccine, inactivated 01/27/16 Give n influenza virus vaccine, inactivated 05/05/15 Give n influenza virus vaccine, inactivated 04/23/13 Give n tetanus/diphtheria/pertussis, acel(Tdap) 01/17/21 Recorded tetanus/diphtheria/pertussis, acel(Tdap) 03/19/12 Given SARS-CoV-2 (COVID-19) Ad26 vaccine 08/14/20 Record ed pneumococcal 23-valent vaccine 03/06/16 Given 1Result Comment: FLU [facility] 69729-250-16 Medications albuterol 0.083% inhalation solution 3 mL [...] 14:13:00 EDT, Aerosol, Route to Pharmacy Electronically, [id number], [facility]/pharmacy #[id number], 161, cm, 10/29/20 12:39:00 EDT, [...] day, # 12 each, 5 Refills, [facility]228, 161, cm, 10/14/21 8:43:00 EDT, Height, 99.8, [...] Refills, Maintenance, 05/10/21 13:30:00 EST, Suppository, [facility]/pharmacy #[id number], Partial fill upon patient request [...] Refills, Soft Stop, 03/10/20 9:11:00 EST, Tablet, [facility], 160, cm, 03/10/20 8:33:00 EST, Height, 99.9, kg, 1... Start Date: 03/10/20 Stop Date: 09/06/20 Status: Ordered lidocaine 5% topical film 1 patch, Topically, Daily, remove patches after 12 hours, # 30 patch, 0 Refills, Maintenance, 10/23/20 23:42:00 EDT, [facility]/pharmacy #[id number], Partial fill upon patient request if the prescription is for aschedule II opioid drug., 1 patch Topically Daily,x... Start Date: 10/23/20 Stop Date: 11/22/20 Status: Ordered metFORMIN 500 mg oral tablet 1 tablet, By Mouth, 2 times a day, # 60 tablet, 0 Refills, Maintenance, 02/06/23 9:44:00 EDT, [facility], 161, cm, 10/18/22 14:00:00 EDT, Height Start Date: 02/06/23 Status: Ordered Metoprolol Succinate ER 25 mg oral tablet, extended release 1 tablet, By Mouth, Daily, # 90 tablet, 0 Refills, Maintenance, 01/06/23 14:19:00 EDT, [facility], 161, cm, 10/18/22 14:00:00 EDT, Height Start Date: 01/06/23 Status: Ordered naproxen 500 mg oral tablet 1 tablet = 500 mg, By Mouth, 2 times a day, # 60 tablet, 0 Refills, Maintenance, 10/14/21 8:27:00 EDT, Tablet, [facility]/pharmacy #[id number], Partial fill upon patient request if the prescription is for a schedule II opioid drug., 161, cm, 10/14/21 8:07:00 EDT,... Start Date: 10/14/21 Stop Date: 11/13/21 Status: Ordered omeprazole 20 mg oral enteric coated capsule 1 capsule, By Mouth, 2 times a day, # 180 capsule, 0 Refills, Maintenance, 03/06/23 8:56:00 EST, [facility], 161, cm, 10/18/22 14:00:00 EDT, Height Start Date: 03/06/23 Status: Ordered ondansetron 4 mg oral tablet, [...] Refills, Maintenance, 10/14/21 8:38:00 EDT, Tablet, [facility]/pharmacy #6901, Partial fill upon patient request if the [...] in female Confirmed Active Depression Confirmed Active Diabetes Confirmed Active Nipple discharge in female Confirmed [...] - with severe depression/anxiety Confirmed Active Smoker. [employer] has worked in the past x 2 [...] Code MRI Safety Implantable Status Assigning Authority [id number] Unknown Unknown Unknown 02/04/21 Unknown Unknown Active GS1 Patient Care team information Care Team Personnel Name: Thu Gallardo NP Position: [facility] PCO Associate Professional Member Role: PCP Address: Address: [address] [facility] [facility], [address]rd Floor [place], [place] - Name: Lucy Bateman NP Position: [facility] PCO Associate Professional Member Role: Primary Care Nurse Address: Address: [address], [place] [facility] Name: Aileen Gonzalez RN Position: [facility] ED RN W/OE and Tasks Member Role: Primary Care Nurse Name: Lakeshia Smyth RN Position: [facility] ED RN W/OE and Tasks Member Role: Primary Care Nurse Name: Fidencio Jovel RN Position: S RN Member Role: Primary Care Nurse Name: Tigist Fournier RN Position: S RN Member Role: Primary Care Nurse Name: Lulú Aquino RN Position: [facility] Onco RN Member Role: Primary Care Nurse Care Team Related Persons Name: BAKARIBALBIR GIMENEZVIRI Address: home [address] [place] [address] Name: ALEXUS REYNOSO Address: home [address], [place] [address]
--- OUTSIDE RECORDS SUMMARY | 2024-01-23 10:13 | XMS_ITS | Continuity of Care Document ---
Author Organization [facility] Adult Address [address] [place] [address]- Care Team Providers Care Marketing And Outreach Coordinator Name Role Phone Paulina WEB MARKETING INTERN, Thu Primary Care Physician Encounter [facility] Date(s): 10/14/22 - 11/17/22 [facility] Adult [address] [place] [address]- Attending Physician: Davida CARSON, Teresa Goncalves Allergies, Adverse Reactions, Alerts Substance Reaction Severity Status codeine Atypical migraine Active erythromycin Oxycodone Azithromycin allergy N&V - Nausea and vomiting Active azithromycin Nausea and vomiting Active acetaminophen-oxycodone Acti ve Vicodin Hives/Rash Active Percocet 5/325 Hives/Rash Active [...] 23-valent vaccine 03/06/16 Given 1Result Comment: FLU [facility] 00953-708-20 Medications albuterol 0.083% inhalation solution 3 mL [...] 14:13:00 EDT, Aerosol, Route to Pharmacy Electronically, [id number], [facility]/pharmacy #[id number], 161, cm, 10/29/20 12:39:00 EDT, Hei... [...] a day, # 12 each, 5 Refills, [facility] 15003, 161, cm, 10/14/21 8:43:00 EDT, Height, 99.8, [...] 0 Refills, Maintenance, 05/10/21 13:30:00 EST, Suppository, [facility]/pharmacy #0693, Partial fill upon patient request if [...] Soft Stop, 03/10/20 9:11:00 EST, Tablet, [facility], 160, cm, 03/10/20 8:33:00 EST, Height, 99.9, kg, 1... Start Date: 03/10/20 Stop Date: 09/06/20 Status: Ordered lidocaine 5% topical film 1 patch, Topically, Daily, remove patches after 12 hours, # 30 patch, 0 Refills, Maintenance, 10/23/20 23:42:00 EDT, [facility]/pharmacy #2071, Partial fill upon patient request if the prescription is for aschedule II opioid drug., 1 patch Topically Daily,x... Start Date: 10/23/20 Stop Date: 11/22/20 Status: Ordered metFORMIN 500 mg oral tablet 1 tablet, By Mouth, 2 times a day, # 60 tablet, 5 Refills, Maintenance, 02/11/22 9:47:00 EDT, [facility], 161, cm, 11/20/21 13:47:00 EDT, Height, 99.8, kg, 10/23/20 22:45:00 EDT, Dry Weight Start Date: 02/11/22 Status: Ordered Metoprolol Succinate ER 25 mg oral tablet, extended release 1 tablet, By Mouth, Daily, # 30 tablet, 2 Refills, Maintenance, 08/23/22 15:50:00 EDT, [facility], 161, cm, 11/20/21 13:47:00 EDT, Height, 99.8, kg, 10/23/20 22:45:00 EDT, Dry Weight Start Date: 08/23/22 Status: Ordered naproxen 500 mg oral tablet 1 tablet = 500 mg, By Mouth, 2 times a day, # 60 tablet, 0 Refills, Maintenance, 10/14/21 8:27:00 EDT, Tablet, [facility]/pharmacy #2071, Partial fill upon patient request if the prescription is for a schedule II opioid drug., 161, cm, 10/14/21 8:07:00 EDT,... Start Date: 10/14/21 Stop Date: 11/13/21 Status: Ordered omeprazole 20 mg oral enteric coated capsule 1 capsule, By Mouth, 2 times a day, # 60 capsule, 2 Refills, Maintenance, 08/23/22 15:50:00 EDT, [facility] 888[facility], 161, cm, 11/20/21 13:47:00 EDT, Height, 99.8, [...] 0 Refills, Maintenance, 10/14/21 8:38:00 EDT, Tablet, [facility]/pharmacy #2071, Partial fill upon patient request if [...] - with severe depression/anxiety Confirmed Active Smoker. [employer] has worked in the past x 2 [...] Code MRI Safety Implantable Status Assigning Authority [id number] Unknown Unknown Unknown 02/04/21 Unknown Unknown Active GS1 Patient Care team information Care Team Personnel Name: Thu Gallardo NP Position: [facility] PCO Associate Professional Member Role: PCP Address: Address: [address] [place] [address], [address] [place] [address]- Name: Lucy Bateman NP Position: [facility] PCO Associate Professional Member Role: Primary Care Nurse Address: Address: [address] [place] [address]- Name: Aileen Gonzalez RN Position: S RN Member Role: Primary Care Nurse Name: Lakeshia Smyth RN Position: [facility] ED RN W/OE and Tasks Member Role: Primary Care Nurse Name: Fidencio Jovel RN Position: [facility] ED RN W/OE and Tasks Member Role: Primary Care Nurse Name: Tigist Fournier RN Position: S RN Member Role: Primary Care Nurse Name: Lulú Aquino RN Position: [facility] Onco RN Member Role: Primary Care Nurse Care Team Related Persons Name: YNES VILLEGAS Address: home [address] [place] [address] Name: ALEXUS REYNOSO Address: home [address] [address]
--- OUTSIDE RECORDS SUMMARY | 2024-01-23 10:13 | XMS_ITS | Continuity of Care Document ---
Author Organization [facility] Adult Address [address] [place] [address]- Care Team Providers Care Wood Calker Name Role Phone Not on Staff, PCP Primary Care Physician Unavail able [facility]counter [facility] Date(s): 05/03/23 - 06/02/23 [facility] Adult [address] [place] [address]- Allergies, Adverse Reactions, Alerts Substance Reaction Severity [...] vaccine 03/06/16 Given 1Result Comment: FLU [facility] 24050-390-63 Medications albuterol 0.083% inhalation solution 3 mL = 2.5 mg, Inhalation, Every 6 hours, PRN Wheezing/Shortness of Breath, # 25 each, 0 Refills, Maintenance, 05/26/17 13:53:35, Solution Start Date: 2/16/18 Stop Date: 06/25/17 Status: Ordered albuterol CFC free 90 mcg/inh inhalation aerosol 1, puffs, Inhalation, 4 times a day, PRN, # 1 each, Refills 3, Tot. Refills 3, Maintenance, 10/29/20 14:13:00 EDT, Aerosol, Route to Pharmacy Electronically, [id number], [facility]/pharmacy #[id number], 161, cm, 10/29/20 12:39:00 [...] a day, # 12 each, 5 Refills, [facility] 86455, 161, cm, 10/14/21 8:43:00 EDT, Height, 99.8, [...] 0 Refills, Maintenance, 05/10/21 13:30:00 EST, Suppository, [facility]/pharmacy #0613, Partial fill upon patient request if the [...] Refills, Soft Stop, 03/10/20 9:11:00 EST, Tablet, [facility], 160, cm, 03/10/20 8:33:00 EST, Height, 99.9, kg, 1... Start Date: 03/10/20 Stop Date: 09/06/20 Status: Ordered lidocaine 5% topical film 1 patch, Topically, Daily, remove patches after 12 hours, # 30 patch, 0 Refills, Maintenance, 10/23/20 23:42:00 EDT, [facility]/pharmacy #2071, Partial fill upon patient request if the prescription is for aschedule II opioid drug., 1 patch Topically Daily,x... Start Date: 10/23/20 Stop Date: 11/22/20 Status: Ordered metFORMIN 500 mg oral tablet 1 tablet, By Mouth, 2 times a day, # 60 tablet, 0 Refills, Maintenance, 02/06/23 9:44:00 EDT, [facility], 161, cm, 10/18/22 14:00:00 EDT, Height Start Date: 02/06/23 Status: Ordered Metoprolol Succinate ER 25 mg oral tablet, extended release 1 tablet, By Mouth, Daily, # 90 tablet, 0 Refills, Maintenance, 01/06/23 14:19:00 EDT, [facility], 161, cm, 10/18/22 14:00:00 EDT, Height Start Date: 01/06/23 Status: Ordered naproxen 500 mg oral tablet 1 tablet = 500 mg, By Mouth, 2 times a day, # 60 tablet, 0 Refills, Maintenance, 10/14/21 8:27:00 EDT, Tablet, [facility]/pharmacy #[id number], Partial fill upon patient request if the prescription is for a schedule II opioid drug., 161, cm, 10/14/21 8:07:00 EDT,... Start Date: 10/14/21 Stop Date: 11/13/21 Status: Ordered omeprazole 20 mg oral enteric coated capsule 1 capsule, By Mouth, 2 times a day, # 180 capsule, 0 Refills, Maintenance, 03/06/23 8:56:00 EST, [facility], 161, cm, 10/18/22 14:00:00 EDT, Height Start Date: 03/06/23 Status: Ordered ondansetron 4 mg oral tablet, disintegrating 1 tablet = 4 mg, By Mouth, 3 times a day, # 21 tablet, 1 Refills, Maintenance, 10/18/22 14:19:00 EDT, [facility]/pharmacy #0693, Partial fill upon patient [...] Refills, Maintenance, 10/14/21 8:38:00 EDT, Tablet, [facility], Partial fill upon patient request if the [...] Code MRI Safety Implantable Status Assigning Authority [id number] Unknown Unknown Unknown 02/04/21 Unknown Unknown Active GS1 Patient Care team information Care Team Personnel Name: Lucy Bateman NP Position: [facility] PCO Associate Professional Member Role: Primary Care Nurse Address: Address: [address] [place] [address] Name: Aileen Gonzalez RN Position: [facility] RN Member Role: Primary Care Nurse Name: Lakeshia Smyth RN Position: [facility] ED RN W/OE and Tasks Member Role: Primary Care Nurse Name: Not on Staff, PCP Position: [facility] Physician (General Medicine) Member Role: PCP Name: Fidencio Jovel RN Position: [facility] RN Member Role: Primary Care Nurse Name: Tigist Fournier RN Position: [facility] RN Member Role: Primary Care Nurse Name: Lulú Aquino RN Position: [facility] Onco RN Member Role: Primary Care Nurse Care Team Related Persons Name: YNES VILLEGAS Address: home [address] [place] [address] Name: ALEXUS REYNOSO Address: home [address] [address]
--- OUTSIDE RECORDS SUMMARY | 2024-01-23 10:13 | XMS_ITS | Continuity of Care Document ---
Author Organization [facility] Adult Address [address] [place] [address]- Care Team Providers Care Tool Maintenance Technician Name Role Phone Not on Staff, PCP Primary Care Physician Unavail able [facility]): 04/[facility]/23 - 05/10/23 [facility] Adult [address] [place] [address]- Allergies, Adverse Reactions, Alerts Substance Reaction Severity [...] 23-valent vaccine 03/06/16 Given 1Result Comment: FLU [facility] 05612-679-61 Medications albuterol 0.083% inhalation solution 3 mL [...] 14:13:00 EDT, Aerosol, Route to Pharmacy Electronically, [id number], [facility]/pharmacy #[id number], 161, [...] # 12 each, 5 Refills, [facility] STORE 83718, 161, cm, 10/14/21 8:43:00 EDT, Height, 99.8, [...] EST, Suppository, [facility]/pharmacy #[id number], Partial fill upon patient request if the [...] Refills, Soft Stop, 03/10/20 9:11:00 EST, Tablet, [facility], 160, cm, 03/10/20 8:33:00 EST, Height, 99.9, kg, 1... Start Date: 03/10/20 Stop Date: 09/06/20 Status: Ordered lidocaine 5% topical film 1 patch, Topically, Daily, remove patches after 12 hours, # 30 patch, 0 Refills, Maintenance, 10/23/20 23:42:00 EDT, [facility]/pharmacy #[id number], Partial fill upon patient request if the prescription is for aschedule II opioid drug., 1 patch Topically Daily,x... Start Date: 10/23/20 Stop Date: 11/22/20 Status: Ordered metFORMIN 500 mg oral tablet 1 tablet, By Mouth, 2 times a day, # 60 tablet, 0 Refills, Maintenance, 02/06/23 9:44:00 EDT, [facility], 161, cm, 10/18/22 14:00:00 EDT, Height Start Date: 02/06/23 Status: Ordered Metoprolol Succinate ER 25 mg oral tablet, extended release 1 tablet, By Mouth, Daily, # 90 tablet, 0 Refills, Maintenance, 01/06/23 14:19:00 EDT, [facility], 161, cm, 10/18/22 14:00:00 EDT, Height Start Date: 01/06/23 Status: Ordered naproxen 500 mg oral tablet 1 tablet = 500 mg, By Mouth, 2 times a day, # 60 tablet, 0 Refills, Maintenance, 10/14/21 8:27:00 EDT, Tablet, [facility]/pharmacy #[id number], Partial fill upon patient request if the prescription is for a schedule II opioid drug., 161, cm, 10/14/21 8:07:00 EDT,... Start Date: 10/14/21 Stop Date: 11/13/21 Status: Ordered omeprazole 20 mg oral enteric coated capsule 1 capsule, By Mouth, 2 times a day, # 180 capsule, 0 Refills, Maintenance, 03/06/23 8:56:00 EST, [facility], 161, cm, 10/18/22 14:00:00 EDT, Height Start Date: 03/06/23 Status: Ordered ondansetron 4 mg oral tablet, disintegrating 1 tablet = 4 mg, By Mouth, 3 times a day, # 21 tablet, 1 Refills, Maintenance, 10/18/22 14:19:00 EDT, [facility]/pharmacy #[id number], Partial fill upon patient [...] Refills, Maintenance, 10/14/21 8:38:00 EDT, Tablet, [facility], Partial fill upon patient request if the [...] Code MRI Safety Implantable Status Assigning Authority [id number] Unknown Unknown Unknown 02/04/21 Unknown Unknown Active GS1 Patient Care team information Care Team Personnel Name: Lucy Bateman NP Position: [facility] PCO Associate Professional Member Role: Primary Care Nurse Address: Address: [address] [place] [id number] Name: Aileen Gonzalez RN Position: [facility] RN Member Role: Primary Care Nurse Name: Lakeshia Smyth RN Position: [facility] ED RN W/OE and Tasks Member Role: Primary Care Nurse Name: Not on Staff, PCP Position: [facility] Physician (General Medicine) Member Role: PCP Name: Fidencio Jovel RN Position: [facility] RN Member Role: Primary Care Nurse Name: Tigist Fournier RN Position: [facility] RN Member Role: Primary Care Nurse Name: Lulú Aquino RN Position: [facility] Onco RN Member Role: Primary Care Nurse Care Team Related Persons Name: YNES VILLEGAS Address: home [address] [place] [address] Name: ALEXUS REYNOSO Address: home [address] [place] [address]
--- OUTSIDE RECORDS SUMMARY | 2024-01-23 10:13 | XMS_ITS | Continuity of Care Document ---
Author Organization [facility] Address [address] [place] [address]- Care Team Providers Care Natural Gas Treating Unit Operator Name Role Phone Paulina UNDERCUTTER, Thu Primary Care Physician [phone] [facility]counter [facility]s): 01/11/23 - 02/10/23 [facility] [address] [place] [address]- Allergies, Adverse Reactions, Alerts Substance Reaction Severity Status codeine Atypical migraine Active erythromycin Oxycodone Azithromycin allergy N&V - Nausea and vomiting Active azithromycin Nausea and vomiting Active acetaminophen-oxycodone Acti ve Vicodin Hives/Rash Active Percocet 5/ Hives/Rash Active Reglan agitation (has rippe d [...] 23-valent vaccine 03/06/16 Given 1Result Comment: FLU [facility] 65126-293-18 Medications albuterol 0.083% inhalation solution 3 mL [...] 14:13:00 EDT, Aerosol, Route to Pharmacy Electronically, [id number], [facility]/pharmacy #[id number], 161, cm, 10/29/20 12:39:00 EDT, Hei... [...] a day, # 12 each, 5 Refills, [facility] STORE 08322, 161, cm, 10/14/21 8:43:00 EDT, Height, 99.8, [...] 0 Refills, Maintenance, 05/10/21 13:30:00 EST, Suppository, [facility]/pharmacy #0693, Partial fill upon patient request if [...] Refills, Soft Stop, 03/10/20 9:11:00 EST, Tablet, [facility], 160, cm, 03/10/20 8:33:00 EST, Height, 99.9, kg, 1... Start Date: 03/10/20 Stop Date: 09/06/20 Status: Ordered lidocaine 5% topical film 1 patch, Topically, Daily, remove patches after 12 hours, # 30 patch, 0 Refills, Maintenance, 10/23/20 23:42:00 EDT, [facility]/pharmacy #2071, Partial fill upon patient request if the prescription is for aschedule II opioid drug., 1 patch Topically Daily,x... Start Date: 10/23/20 Stop Date: 11/22/20 Status: Ordered metFORMIN 500 mg oral tablet 1 tablet, By Mouth, 2 times a day, # 60 tablet, 0 Refills, Maintenance, 02/06/23 9:44:00 EDT, [facility], 161, cm, 10/18/22 14:00:00 EDT, Height Start Date: 02/06/23 Status: Ordered Metoprolol Succinate ER 25 mg oral tablet, extended release 1 tablet, By Mouth, Daily, # 90 tablet, 0 Refills, Maintenance, 01/06/23 14:19:00 EDT, [facility], 161, cm, 10/18/22 14:00:00 EDT, Height Start Date: 01/06/23 Status: Ordered naproxen 500 mg oral tablet 1 tablet = 500 mg, By Mouth, 2 times a day, # 60 tablet, 0 Refills, Maintenance, 10/14/21 8:27:00 EDT, Tablet, [facility]/pharmacy #2071, Partial fill upon patient request if the prescription is for a schedule II opioid drug., 161, cm, 10/14/21 8:07:00 EDT,... Start Date: 10/14/21 Stop Date: 11/13/21 Status: Ordered omeprazole 20 mg oral enteric coated capsule 1 capsule, By Mouth, 2 times a day, # 180 capsule, 0 Refills, Maintenance, 12/08/22 7:13:00 EDT, [facility], 161, cm, 10/18/22 14:00:00 EDT, Height Start Date: 12/08/22 Status: Ordered ondansetron 4 mg oral tablet, disintegrating 1 tablet = 4 mg, By Mouth, 3 times a day, # 21 tablet, 1 Refills, Maintenance, 10/18/22 14:19:00 EDT, [facility]/pharmacy #0693, Partial fill upon patient request if [...] Refills, Maintenance, 10/14/21 8:38:00 EDT, Tablet, [facility], Partial fill upon patient request if the [...] Code MRI Safety Implantable Status Assigning Authority [id number] [id number] Unknown Unknown Unknown 02/04/21 Unknown Unknown Active GS1 Patient Care team information Care Team Personnel Name: Thu Gallardo NP Position: [facility] PCO Associate Professional Member Role: PCP Address: Address: [address] [facility], [address]rd [address] [place], [place] - Name: Lucy Bateman NP Position: [facility] PCO Associate Professional Member Role: Primary Care Nurse Address: Address: [address], [place] - Name: Aileen Gonzalez RN Position: [facility] RN Member Role: Primary Care Nurse Name: Lakeshia Smyth RN Position: [facility] ED RN W/OE and Tasks Member Role: Primary Care Nurse Name: Fidencio Jovel RN Position: S RN Member Role: Primary Care Nurse Name: Tigist Fournier RN Position: S RN Member Role: Primary Care Nurse Name: Lulú Aquino RN Position: [facility] Onco RN Member Role: Primary Care Nurse Care Team Related Persons Name: YNES VILLEGAS Address: home [address] [place], [place] Name: ALEXUS REYNOSO Address: home [address] [facility] [address] [address]
--- OUTSIDE RECORDS SUMMARY | 2024-01-23 10:14 | XMS_ITS | Continuity of Care Document ---
Author Organization [facility] Adult Address [address] [place] [address]- Care Team Providers Care Clothing Presser Name Role Phone Paulina HANDWRITING EXPERT, Thu Primary Care Physician [phone] [facility] 05/12/22 - 06/11/22 [facility] Adult [address] [place] [address]- Allergies, Adverse Reactions, Alerts Substance Reaction Severity Status codeine Atypical migraine Active erythromycin Oxycodone Azithromycin allergy N&V - Nausea and vomiting Active azithromycin Nausea and vomiting Active acetaminophen-oxycodone Acti ve Vicodin Hives/Rash Active Reglan agitation (has rippe d her IVs out) increased anxiety Active Percocet Hives/Rash Active Immunizations Given and Recorded [...] 1Result Comment: FLU [facility] 54531-580-34 Medications albuterol 0.083% inhalation solution 3 mL [...] 14:13:00 EDT, Aerosol, Route to Pharmacy Electronically, [id number], [facility]/pharmacy #[id number], 161, cm, 10/29/20 12:39:00 [...] a day, # 12 each, 5 Refills, [facility] STORE 16920, 161, cm, 10/14/21 8:43:00 EDT, Height, 99.8, [...] 0 Refills, Maintenance, 05/10/21 13:30:00 EST, Suppository, [facility]/pharmacy #[id number], Partial fill upon patient [...] Refills, Soft Stop, 03/10/20 9:11:00 EST, Tablet, [facility], 160, cm, 03/10/20 8:33:00 EST, Height, 99.9, kg, 1... Start Date: 03/10/20 Stop Date: 09/06/20 Status: Ordered lidocaine 5% topical film 1 patch, Topically, Daily, remove patches after 12 hours, # 30 patch, 0 Refills, Maintenance, 10/23/20 23:42:00 EDT, [facility]/pharmacy #[id number], Partial fill upon patient request if the prescription is for aschedule II opioid drug., 1 patch Topically Daily,x... Start Date: 10/23/20 Stop Date: 11/22/20 Status: Ordered metFORMIN 500 mg oral tablet 1 tablet, By Mouth, 2 times a day, # 60 tablet, 5 Refills, Maintenance, 02/11/22 9:47:00 EDT, [facility] STORE 76688, 161, cm, 11/20/21 13:47:00 EDT, Height, 99.8, kg, 10/23/20 22:45:00 EDT, Dry Weight Start Date: 02/11/22 Status: Ordered Metoprolol Succinate ER 25 mg oral tablet, extended release 1 tablet, By Mouth, Daily, # 30 tablet, 2 Refills, 05/13/22 10:43:00 EST, [facility]/pharmacy #[id number], 161, cm, 11/20/21 13:47:00 EDT, Height, 99.8, kg, 10/23/20 22:45:00 EDT, Dry Weight Start Date: 05/13/22 Status: Ordered naproxen 500 mg oral tablet 1 tablet = 500 mg, By Mouth, 2 times a day, # 60 tablet, 0 Refills, Maintenance, 10/14/21 8:27:00 EDT, Tablet, [facility]/pharmacy #[id number], Partial fill upon patient request if the prescription is for a schedule II opioid drug., 161, cm, 10/14/21 8:07:00 EDT,... Start Date: 10/14/21 Stop Date: 11/13/21 Status: Ordered omeprazole 20 mg oral enteric coated capsule 1 capsule, By Mouth, 2 times a day, # 60 capsule, 2 Refills, Maintenance, 05/18/22 8:09:00 EST, [facility] [address], 161, cm, 11/20/21 13:47:00 EDT, Height, 99.8, kg, 10/23/20 22:45:00 EDT, Dry Weight Start Date: 05/18/22 Status: Ordered ondansetron 4 mg oral tablet, disintegrating 1 tablet = 4 mg, By Mouth, 3 times a day, # 21 tablet, 1 Refills, Maintenance, 03/20/20 13:04:00 EST, [facility], Partial fill upon patient request if the prescription is for a scheduleII opioid drug., 160, cm, 03/10/20 8:33:00 EST, [facility]... Start Date: 03/20/20 Status: Ordered QUEtiapine 25 mg oral tablet 25 mg, 1, tablet, By Mouth, Daily at bedtime, # 30 tablet, Refills 0, Maintenance, 07/03/19 21:08:00 EDT Start Date: 07/03/19 Status: Ordered Vraylar 1.5 mg oral capsule [...] 0 Refills, Maintenance, 10/14/21 8:38:00 EDT, Tablet, [facility]/pharmacy #[id number], Partial fill upon patient [...] symptoms Confirmed Active Migraine Confirmed 1997 Active Obese class II Confirmed Active Obesity Confirmed Active IGNACIO (obstructive sleep apnea) 1 Confirmed Active Poor historian Confirmed Active PTSD (post-traumatic stress disorder) Confirmed Active Pulmonary embolus, right Confirmed Active Restless leg syndrome Confirmed Active Social problem - with severe [...] Code MRI Safety Implantable Status Assigning Authority [id number] [id number] Unknown Unknown Unknown 02/04/21 Unknown Unknown Active GS1 Patient Care team information Care Team Personnel Name: Thu Gallardo NP Position: [facility] PCO Associate Professional Member Role: PCP Address: Address: [address] [place] [address], [address] [place] [address]- Name: Lucy Bateman NP Position: [facility] Associate Professional Member Role: Primary Care Nurse Address: Address: [address] [place] [address]- Name: Aileen Gonzalez RN Position: [facility] RN Member Role: Primary Care Nurse Name: Lakeshia Smyth RN Position: [facility] ED RN W/OE and Tasks Member Role: Primary Care Nurse Name: Fidencio Jovel RN Position: [facility] ED RN W/OE and Tasks Member Role: Primary Care Nurse Name: Tigist Fournier RN Position: S RN Member Role: Primary Care Nurse Name: Lulú Aquino RN Position: [facility] Onco RN Member Role: Primary Care Nurse Care Team Related Persons Name: YNES VILLEGAS Address: home [address] [place] [address] Name: ALEXUS REYNOSO Address: home [address], [place] [address]
--- OUTSIDE RECORDS SUMMARY | 2024-01-23 10:14 | XMS_ITS | Continuity of Care Document ---
Author Organization [facility] ter Address [address] [place] [address]- Care Team Providers Care Header Operator Name Role Phone Not on Staff, PCP Primary Care Physician Unavail able Encounter 12/06/23 - 12/07/[address] [address]- Attending Physician: Not on Staff, Attending MD Referring Physician: Not on Staff, Referring MD Allergies, Adverse Reactions, Alerts Substance Reaction Severity Status codeine Atypical migraine Active erythromycin Oxycodone Azithromycin allergy N&V - Nausea and vomiting Active azithromycin Nausea and vomiting Active acetaminophen-oxycodone Acti ve Reglan agitation (has rippe d her IVs out) increased anxiety Active Vicodin Hives/Rash Active Percocet Hives/Rash Active Immunizations Given and [...] 23-valent vaccine 03/06/16 Given 1Result Comment: FLU [facility] 71235-296-08 Medications albuterol 0.083% inhalation solution 3 mL [...] 14:13:00 EDT, Aerosol, Route to Pharmacy Electronically, [id number], [facility]/pharmacy #[id number], 161, cm, 10/29/20 12:39:00 [...] a day, # 12 each, 5 Refills, [facility] STORE 80721, 161, cm, 10/14/21 8:43:00 EDT, Height, 99.8, [...] 0 Refills, Maintenance, 05/10/21 13:30:00 EST, Suppository, [facility]/pharmacy #[id number], Partial fill upon patient [...] Refills, Soft Stop, 03/10/20 9:11:00 EST, Tablet, [facility], 160, cm, 03/10/20 8:33:00 EST, Height, 99.9, kg, 1... Start Date: 03/10/20 Stop Date: 09/06/20 Status: Ordered lidocaine 5% topical film 1 patch, Topically, Daily, remove patches after 12 hours, # 30 patch, 0 Refills, Maintenance, 10/23/20 23:42:00 EDT, [facility]/pharmacy #[id number], Partial fill upon patient request if the prescription is for aschedule II opioid drug., 1 patch Topically Daily,x... Start Date: 10/23/20 Stop Date: 11/22/20 Status: Ordered metFORMIN 500 mg oral tablet 1 tablet, By Mouth, 2 times a day, # 60 tablet, 0 Refills, Maintenance, 02/06/23 9:44:00 EDT, [facility], 161, cm, 10/18/22 14:00:00 EDT, Height Start Date: 02/06/23 Status: Ordered Metoprolol Succinate ER 25 mg oral tablet, extended release 1 tablet, By Mouth, Daily, # 90 tablet, 0 Refills, Maintenance, 01/06/23 14:19:00 EDT, [facility], 161, cm, 10/18/22 14:00:00 EDT, Height Start Date: 01/06/23 Status: Ordered naproxen 500 mg oral tablet 1 tablet = 500 mg, By Mouth, 2 times a day, # 60 tablet, 0 Refills, Maintenance, 10/14/21 8:27:00 EDT, Tablet, [facility]/pharmacy #[id number], Partial fill upon patient request if the prescription is for a schedule II opioid drug., 161, cm, 10/14/21 8:07:00 EDT,... Start Date: 10/14/21 Stop Date: 11/13/21 Status: Ordered omeprazole 20 mg oral enteric coated capsule 1 capsule, By Mouth, 2 times a day, # 180 capsule, 0 Refills, Maintenance, 03/06/23 8:56:00 EST, [facility], 161, cm, 10/18/22 14:00:00 EDT, Height Start [...] Refills, Maintenance, 10/14/21 8:38:00 EDT, Tablet, [facility], Partial fill upon patient request if the [...] - with severe depression/anxiety Confirmed Active Smoker. Rico has worked in the past x 2 but the most recent trial failed and gave patient nightmares, etc. Confirmed Active Adnexal mass - right side 7.6 cm, suspected endometrioma Confirmed Active Urinary incontinence Confirmed Active Vitamin D Deficiency Confirmed Active 1Mild, not on CPAP Results Radiology Reports * Exam Date Time Procedure Performing Provider Status 8/28/24 9:35 PM MRI Joint Ext Upper W/O Contrast Right Auth (Verified) Notes: (MRI Joint Ext Upper W/O Contrast Right) Reason For Exam: Reason For Exam: M25.531 - Pain in right wrist, , right wrist evaluate occult fracture verses tendon injury\.br\UNMAPPED LAB;Reason For Exam:M25.531 - Pain in right wrist, , right wrist evaluate occult fracture verses tendon injury\.br\UNMAPPED LAB RESULT: MRI Joint Ext Upper W/O Contrast Right [facility] VISIT NUMBER :[id number] Patient Name: Linda Martinez Date of : 1980 Date of Exam: 12-06-2023 Referring Physician: [place] [id number] Exam: MR Wrist (C-) CPT 87079 - Right Room Description: [facility]ion 3T CLINICAL HISTORY: Pain in the right wrist, question occult fracture versus tendon injury. The patient reports moderate daily right wrist pain for 2 weeks. History of carpal tunnel surgery over 10 years ago. TECHNIQUE: MRI of the right wrist was performed without intravenous contrast. COMPARISON: There are no prior studies available for comparison. FINDINGS: Ligaments and tendons: The flexor and extensor tendons show normal signal intensity and configuration. There is postoperative change compatible with the history of carpal tunnel release. No specific findings or abnormalities involving the intrinsic carpal ligaments are seen. The triangular fibrocartilage ligament complex is unremarkable. Bone and articular cartilage: There is no evidence of fracture or osteonecrosis. Mild subchondral marrow edema is seen in the anterior, proximal aspect of the lunate. There is a type II lunate. Articular cartilage appears normal in thickness without focal defect. Soft tissues: No abnormalities are seen in the region of the median or ulnar nerves. No joint effusion is observed. Multiloculated cystic structure measuring 5 mm is seen on the dorsum of the wrist, which appears to extend to the dorsal aspect of the scapholunate ligament and likely reflects a ganglion. IMPRESSION: 1. No evidence of fracture or tendon tear. 2. Cystic structure measuring 5 mm on the dorsum of the wrist, likely a ganglion. Electronically Signed By: Neva Ramirez MD Dictated By: Not on Staff , JENNY ROCHA Dictated Date/Time: 12/07/23 11:30 a Reviewed By: Not on Staff , JENNY ROCHA Signed By: Not on Staff , JENNY ROCHA Signed Date/Time: 12/07/23 11:30 am Transcribed By: TS Transcribed Date/Time: 12/07/23 11:30 am Social History Social History Type Response Tobacco Use: 4 or less cigar ettes(less than 1/4 pack)/day in last 30 days. Sex Implantable Device List Procedure Provider Procedure Date Device Type Site Repair Hernia Umbilical Laparoscopic Poncho Nascimento MD 07/04/19 Unknown Abdomen Device Identifier Serial Number Lot or Batch Number Manufacturing Date Expiration Date Distinct Identification Code MRI Safety Implantable Status Assigning Authority [id number] Unknown Unknown Unknown 02/04/21 Unknown Unknown Active GS1 Patient Care team information Care Team Personnel Name: Fransico CARSON, Lucy Mota Position: [facility] PCO Associate Professional Member Role: Primary Care Nurse Address: Address: [address] [place] [address] Name: Aileen Gonzalez RN Position: [facility] RN Member Role: Primary Care Nurse Name: Lakeshia Smyth RN Position: [facility] ED RN W/OE and Tasks Member Role: Primary Care Nurse Name: Not on Staff, PCP Position: [facility] Physician (General Medicine) Member Role: PCP Name: Fidencio Jovel RN Position: [facility] RN Member Role: Primary Care Nurse Name: Tigist Founrier RN Position: S RN Member Role: Primary Care Nurse Name: Lulú Aquino RN Position: [facility] Onco RN Member Role: Primary Care Nurse Care Team Related Persons Name: YNES VILLEGAS Address: [address] [address] Name: ALEXUS REYNOSO Address: home [address] [place] [address] [address]
--- OUTSIDE RECORDS SUMMARY | 2024-01-23 10:15 | XMS_ITS | Continuity of Care Document ---
Author Organization [facility] Adult Address [address] [place] [address]- Care Team Providers Care Mirror Maker Name Role Phone Paulina TANK STAVE ASSEMBLER, Thu Primary Care Physician [facility] Date[facility]): 10/27/22 - 11/26/22 [facility] Adult [address] [place] [address]- Allergies, Adverse Reactions, Alerts Substance Reaction Severity [...] 1Result Comment: FLU [facility] [id number] Medications albuterol 0.083% inhalation solution 3 mL [...] 14:13:00 EDT, Aerosol, Route to Pharmacy Electronically, [id number], [facility]/pharmacy #[id number], 161, cm, 10/29/20 12:39:00 [...] a day, # 12 each, 5 Refills, [facility] STORE 77665, 161, cm, 10/14/21 8:43:00 EDT, Height, 99.8, [...] 0 Refills, Maintenance, 05/10/21 13:30:00 EST, Suppository, [facility]/pharmacy #[id number], Partial fill upon patient [...] Refills, Maintenance, 02/11/22 9:47:00 EDT, [facility], 161, cm, 11/20/21 13:47:00 EDT, Height, 99.8, kg, 10/23/20 22:45:00 EDT, Dry Weight Start Date: 02/11/22 Status: Ordered Metoprolol Succinate ER 25 mg oral tablet, extended release 1 tablet, By Mouth, Daily, # 30 tablet, 2 Refills, Maintenance, 08/23/22 15:50:00 EDT, [facility]167, 161, cm, 11/20/21 13:47:00 EDT, Height, 99.8, kg, 10/23/20 22:45:00 EDT, Dry Weight Start Date: 08/23/22 Status: Ordered naproxen 500 mg oral tablet 1 tablet = 500 mg, By Mouth, 2 times a day, # 60 tablet, 0 Refills, Maintenance, 10/14/21 8:27:00 EDT, Tablet, [facility]/pharmacy #[id number], Partial fill upon patient request if the prescription is for a schedule II opioid drug., 161, cm, 10/14/21 8:07:00 EDT,... Start Date: 10/14/21 Stop Date: 11/13/21 Status: Ordered omeprazole 20 mg oral enteric coated capsule 1 capsule, By Mouth, 2 times a day, # 60 capsule, 2 Refills, Maintenance, 08/23/22 15:50:00 EDT, [facility] STORE [facility]208, 161, cm, 11/20/21 13:47:00 EDT, Height, 99.8, [...] 0 Refills, Maintenance, 10/14/21 8:38:00 EDT, Tablet, [facility]/pharmacy #[id number], Partial fill upon patient [...] - with severe depression/anxiety Confirmed Active Smoker. [employer] has worked in the past x 2 [...] Code MRI Safety Implantable Status Assigning Authority [id number] Unknown Unknown Unknown 02/04/21 Unknown Unknown Active GS1 Patient Care team information Care Team Personnel Name: Thu Gallardo NP Position: [facility] PCO Associate Professional Member Role: PCP Address: Address: [address] [place] [address], [address] [place] [address]- Name: Lucy Bateman NP Position: [facility]O Associate Professional Member Role: Primary Care Nurse Address: Address: [address] [place] [address]- Name: Aileen Gonzalez RN Position: S RN Member Role: Primary Care Nurse Name: Lakeshia Smyth RN Position: [facility] ED RN W/OE and Tasks Member Role: Primary Care Nurse Name: Fidencio Jovel RN Position: [facility] ED RN W/OE and Tasks Member Role: Primary Care Nurse Name: Tigist Fournier RN Position: S RN Member Role: Primary Care Nurse Name: Lulú Aquino RN Position: [facility] Onco RN Member Role: Primary Care Nurse Care Team Related Persons Name: YNES VILLEGAS Address: home [address] [place] [address] Name: ALEXUS REYNOSO Address: home [address] [address]
--- OUTSIDE RECORDS SUMMARY | 2024-01-23 10:15 | XMS_ITS | Continuity of Care Document ---
Author Organization [facility] Adult Address [address] [place] [address]- Care Team Providers Care Head Refrigeration Engineer Name Role Phone Paulina SANDWICH HAND, Thu Primary Care Physician [facility] Date[facility]s): 10/14/22 - 11/13/22 [facility] Adult [address] [place] [address]- Allergies, Adverse Reactions, Alerts Substance Reaction Severity [...] 23-valent vaccine 03/06/16 Given 1Result Comment: FLU [facility] [id number] Medications albuterol 0.083% inhalation solution 3 mL [...] 14:13:00 EDT, Aerosol, Route to Pharmacy Electronically, [id number], [facility]/pharmacy #[id number], 161, cm, 10/29/20 12:39:00 [...] a day, # 12 each, 5 Refills, [facility] STORE 38723, 161, cm, 10/14/21 8:43:00 EDT, Height, 99.8, [...] 0 Refills, Maintenance, 05/10/21 13:30:00 EST, Suppository, [facility]/pharmacy #[id number], Partial fill upon patient [...] Refills, Soft Stop, 03/10/20 9:11:00 EST, Tablet, [facility], 160, cm, 03/10/20 [...] Refills, Maintenance, 02/11/22 9:47:00 EDT, [facility], 161, cm, 11/20/21 13:47:00 EDT, Height, 99.8, kg, 10/23/20 22:45:00 EDT, Dry Weight Start Date: 02/11/22 Status: Ordered Metoprolol Succinate ER 25 mg oral tablet, extended release 1 tablet, By Mouth, Daily, # 30 tablet, 2 Refills, Maintenance, 08/23/22 15:50:00 EDT, [facility] STORE [facility]1322, 161, cm, 11/20/21 13:47:00 EDT, Height, 99.8, kg, 10/23/20 22:45:00 EDT, Dry Weight Start Date: 08/23/22 Status: Ordered naproxen 500 mg oral tablet 1 tablet = 500 mg, By Mouth, 2 times a day, # 60 tablet, 0 Refills, Maintenance, 10/14/21 8:27:00 EDT, Tablet, [facility]/pharmacy #[id number], Partial fill upon patient request if the prescription is for a schedule II opioid drug., 161, cm, 10/14/21 8:07:00 EDT,... Start Date: 10/14/21 Stop Date: 11/13/21 Status: Ordered omeprazole 20 mg oral enteric coated capsule 1 capsule, By Mouth, 2 times a day, # 60 capsule, 2 Refills, Maintenance, 08/23/22 15:50:00 EDT, [facility] STORE 44896, 161, cm, 11/20/21 13:47:00 EDT, Height, 99.8, [...] 0 Refills, Maintenance, 10/14/21 8:38:00 EDT, Tablet, [facility]/pharmacy #[id number], [...] - with severe depression/anxiety Confirmed Active Smoker. [employer] has worked in the past x 2 [...] Code MRI Safety Implantable Status Assigning Authority [id number] Unknown Unknown Unknown 02/04/21 Unknown Unknown Active GS1 Patient Care team information Care Team Personnel Name: Thu Gallardo NP Position: [facility] PCO Associate Professional Member Role: PCP Address: Address: [address] [place] [address], [address] [place] [address]- Name: Lucy Bateman NP Position: [facility] PCO Associate Professional Member Role: Primary Care Nurse Address: Address: [address] [place] [address]- Name: Aileen Gonzalez RN Position: S RN Member Role: Primary Care Nurse Name: Lakeshia Smyth RN Position: [facility] ED RN W/OE and Tasks Member Role: Primary Care Nurse Name: Fiedncio Jovel RN Position: [facility] ED RN W/OE and Tasks Member Role: Primary Care Nurse Name: Tigist Fournier RN Position: S RN Member Role: Primary Care Nurse Name: Lulú Aquino RN Position: [facility] Onco RN Member Role: Primary Care Nurse Care Team Related Persons Name: YNES VILLEGAS Address: home [address] [place] [address] Name: ALEXUS REYNOSO Address: home [address] [address]
--- OUTSIDE RECORDS SUMMARY | 2024-01-23 10:15 | XMS_ITS | Continuity of Care Document ---
Author Organization [facility] Adult Address [address] [place] [address]- Care Team Providers Care Linux Architect Name Role Phone Paulina JUNIOR BUSINESS ANALYST, Thu Primary Care Physician [phone] [facility]counter [facility] Date[facility]s): 01/30/23 - 03/01/23 [facility] Adult [address] [place] [address]- Allergies, Adverse Reactions, Alerts Substance Reaction Severity [...] 23-valent vaccine 03/06/16 Given 1Result Comment: FLU [facility] [id number] Medications albuterol 0.083% inhalation solution 3 mL [...] 14:13:00 EDT, Aerosol, Route to Pharmacy Electronically, [id number], [facility]/pharmacy #[id number], 161, cm, 10/29/20 12:39:00 EDT, [...] a day, # 12 each, 5 Refills, [facility] STORE 15535, 161, cm, 10/14/21 8:43:00 EDT, Height, 99.8, [...] 0 Refills, Maintenance, 05/10/21 13:30:00 EST, Suppository, [facility]/pharmacy #[id number], Partial fill upon patient request [...] Stop, 03/10/20 9:11:00 EST, Tablet, [facility], 160, cm, 03/10/20 8:33:00 EST, Height, 99.9, kg, 1... Start Date: 03/10/20 Stop Date: 09/06/20 Status: Ordered lidocaine 5% topical film 1 patch, Topically, Daily, remove patches after 12 hours, # 30 patch, 0 Refills, Maintenance, 10/23/20 23:42:00 EDT, [facility]/pharmacy #[id number], Partial fill upon patient request if the prescription is for aschedule II opioid drug., 1 patch Topically Daily,x... Start Date: 10/23/20 Stop Date: 11/22/20 Status: Ordered metFORMIN 500 mg oral tablet 1 tablet, By Mouth, 2 times a day, # 60 tablet, 0 Refills, Maintenance, 02/06/23 9:44:00 EDT, [facility], 161, cm, 10/18/22 14:00:00 EDT, Height Start Date: 02/06/23 Status: Ordered Metoprolol Succinate ER 25 mg oral tablet, extended release 1 tablet, By Mouth, Daily, # 90 tablet, 0 Refills, Maintenance, 01/06/23 14:19:00 EDT, [facility], 161, cm, 10/18/22 14:00:00 EDT, Height Start Date: 01/06/23 Status: Ordered naproxen 500 mg oral tablet 1 tablet = 500 mg, By Mouth, 2 times a day, # 60 tablet, 0 Refills, Maintenance, 10/14/21 8:27:00 EDT, Tablet, [facility]/pharmacy #[id number], Partial fill upon patient request if the prescription is for a schedule II opioid drug., 161, cm, 10/14/21 8:07:00 EDT,... Start Date: 10/14/21 Stop Date: 11/13/21 Status: Ordered omeprazole 20 mg oral enteric coated capsule 1 capsule, By Mouth, 2 times a day, # 180 capsule, 0 Refills, Maintenance, 12/08/22 7:13:00 EDT, [facility], 161, cm, 10/18/22 14:00:00 EDT, Height Start Date: 12/08/22 Status: Ordered ondansetron 4 mg oral tablet, disintegrating 1 tablet = 4 mg, By Mouth, 3 times a day, # 21 tablet, 1 Refills, Maintenance, 10/18/22 14:19:00 EDT, [facility]/pharmacy #[id number], Partial fill upon patient request [...] Refills, Maintenance, 10/14/21 8:38:00 EDT, Tablet, [id number], Partial fill upon patient request if the [...] Code MRI Safety Implantable Status Assigning Authority [id number] Unknown Unknown Unknown 02/04/21 Unknown Unknown Active GS1 Patient Care team information Care Team Personnel Name: Thu Gallardo NP Position: [facility] PCO Associate Professional Member Role: PCP Address: Address: [address] [facility] [place], [place] - Name: Lucy Bateman NP Position: [facility] PCO Associate Professional Member Role: Primary Care Nurse Address: Address: [address], [place] - Name: Aileen Gonzalez RN Position: [facility] RN Member Role: Primary Care Nurse Name: Lakeshia Smyth RN Position: [facility] ED RN W/OE and Tasks Member Role: Primary Care Nurse Name: Fidencio Jovel RN Position: S RN Member Role: Primary Care Nurse Name: Tigist Fournier RN Position: S RN Member Role: Primary Care Nurse Name: Lulú Aquino RN Position: [facility] Onco RN Member Role: Primary Care Nurse Care Team Related Persons Name: YNES VILLEGAS Address: home [address] [place], [place] Name: ALEXUS REYNOSO Address: home [address] [facility] [address] [address]
--- NOTE | 2024-01-23 10:23 | AM.OFFWIN_ITS ---
Intake Vital Signs 01/23/24 10:26 Height 5 ft 3 in Weight 209 lb BMI 37.0 BP 126/80 Blood Pressure Location Rt brachial Position Sitting Pulse 77 Pulse Source Pulse Oximeter Pulse Oximetry (%) 98 Oxygen Delivery Method Room Air Intake Visit Reasons: EP-? let foot fracture Intake Note: Patient here for left foot pain, she states she was at work and dropped a full container of glass milk on her foot. Patient Tobacco Use Status: Former Tobacco user Allergies hydrocodone [From VICODIN] Allergy (Mild, Verified 01/23/24 10:27) HIVES oxycodone [From PERCOCET] Allergy (Mild, Verified 01/23/24 10:27) HIVES azithromycin [AZITHROMYCIN] Allergy (Unknown, Verified 01/23/24 10:27) NAUSEA & VOMITING erythromycin base [From ERYTHROCIN] Allergy (Unknown, Verified 01/23/24 10:27) NAUSEA & VOMITING Do you need a note to return to daycare/school/sports/work: Yes HPI HPI Comments History of Present Illness Details 43 y/o female patient who presents to [facility] walk in clinic with c/o left foot pain since yesterday night. Reports that had a glass jar of milk falling on her left foot at work. Reports pain with walking, and walk with a slight limp. [facility] Medical History (Updated 01/22/24 @ 17:46 by Minerva Zuleta [facility]) Periodic limb movements of sleep Anemia Asthma Nephrolithiasis Sleep apnea Migraine Sinusitis Breast pain, left Hypertension Sleep apnea Bipolar 1 disorder Depression Anxiety delivery delivered Diabetes Sciatica Kidney infection Kidney stones HTN (hypertension) Fibromyalgia Lupus Surgical History H/O section H/O: hysterectomy Family History Maternal Grandmother HTN (hypertension) Diabetes Cancer Other FH: mental illness Substance use Social History Housing: Apartment Alcohol intake: never Patient Tobacco Use Status: Former Tobacco user e-Cigarette/Vaping Use: Currently Using Substance Use Type: Marijuana service: Yes Current occupational status: employed 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 Current occupational exposures/hazards: No Cognitive needs: No Hearing needs: No Vision needs: Yes (glasses) Review of Systems Const All systems reviewed & are unremarkable except as noted in HPI and below Physical Exam Vital Signs: Last Vital Signs Pulse 77 01/23/24 10:26 BP 126/80 01/23/24 10:26 Pulse Ox 98 01/23/24 10:26 Oxygen Delivery Method Room Air 01/23/24 10:26 BMI result Body Mass Index 37.0 Const General: cooperative and no acute distress; No comfortable Nutritional Appearance: obese Orientation/consciousness: patient oriented x3 Neuro Other: Walks with a limp General: patient oriented x3 and moves all extremities Extrem General: Yes normal to inspection and Yes full ROM Right upper extremity: normal to inspection and full ROM Left upper extremity: normal to inspection Right lower extremity: normal to inspection and full ROM Left lower extremity: normal to inspection, full ROM and foot Details: normal capillary refill, normal to inspection, tenderness Location: of the dorsal foot, toes with normal ROM and no edema Psych Speech and movement: Normal speech and movement present Assessment & Plan Assessment & Plan (1) Foot pain, left: Code(s): M79.672 - Pain in left foot Plan: Ordered Xrays IceHot Wrapped foot with Brady bandage. NSAIDs for pain relief. Medications: New ibuprofen 600 mg PO Q8H PRN 30 tabs 0RF pain M79.672 - Pain in left foot cyclobenzaprine 5 mg PO BEDTIME 10 tabs 0RF M79.672 - Pain in left foot Coding Level of Care Code Est Pt Level 4 (47274) Diagnoses Foot pain, left M79.672 Time Spent (min) 20
[2024-01-23 10:26] VITALS: BP 126/80; PULSE 77; O2SAT 98; BMI 37.0
== END 2024-01-23 11:28 | disposition home or self-care (01) ==
PROVIDERS: PCP Nurse Practitioner Family; Visit Provider Nurse Practitioner Family
DX: M79.672 Pain in left foot (principal)

== ENCOUNTER → 2024-01-23 10:11 | Outpatient (BNVA) | payer OTHER, SELFPAY | PROVIDERS: PCP Nurse Practitioner Family ==

== ENCOUNTER 2024-01-23 10:52 | Outpatient (REF) | payer OTHER, SELFPAY ==
--- NOTE | ~2024-01-23 | XR_ITS ---
EXAMINATION: XR FOOT, LEFT CLINICAL INFORMATION: Pain in left foot COMPARISON: None available. TECHNIQUE: AP, lateral, and oblique views of the left foot. FINDINGS: There is soft tissue swelling of the dorsum of foot at the level of the metatarsals and likely soft tissue swelling of the fourth and fifth toes. There is a tiny ossific or calcific density adjacent to the lateral base of the proximal phalanx of the fourth toe which which could represent a tiny chip fracture. Correlation with clinical findings is suggested. Joint spaces are within normal limits. Small posterior plantar calcaneal spur and Achilles enthesophyte are noted. 0.3 cm well-corticated ossific or calcific density is seen in the dorsal soft tissues at the level of the metatarsals. This is likely a nonacute finding. XR/XR foot LT min 3V IMPRESSION: Tiny ossific or calcific density adjacent to the lateral base of the proximal phalanx of the fourth toe which could represent a tiny chip fracture. Correlation with clinical findings is suggested. Electronically signed by: Urmila Cruz MD 01/23/2024 03:02 PM EDT
== END 2024-01-23 10:53 | disposition home or self-care (01) ==
LOC: HO.HMGCX 10:52
PROVIDERS: PCP Nurse Practitioner Family; Visit Provider Nurse Practitioner Family
DX: M79.672 Pain in left foot (principal)
CPT/HCPCS: 73630; 99212

== ENCOUNTER 2024-01-25 08:56 | Outpatient (REF) | payer OTHER, SELFPAY ==
--- NOTE | ~2024-01-25 | CT_ITS ---
EXAMINATION: CT ABDOMEN AND PELVIS WITHOUT AND WITH CONTRAST CLINICAL INFORMATION: Linear disease, unspecified. COMPARISON: CT dated June 03, 2023. TECHNIQUE: Multidetector volumetric imaging was performed of the abdomen and pelvis before and after the IV administration of 85 mL of Omnipaque 350 strength without reported immediate complications. Sagittal and coronal reformatted images were obtained on the technologist's workstation. This CT examination was performed using dose optimization techniques as appropriate, variously including the following: *Automated exposure control *Adjustment of mA and/or kV according to patient size (this includes techniques or standardized protocols for targeted exams where dose is matched to indication/reason for exam; i.e. extremities or head) *Use of iterative reconstruction technique DLP: 1760 mGy-cm FINDINGS: Submitted for interpretation on March 21, 2024. LUNG BASES: No acute airspace disease or gross pulmonary nodules in the included lungs. LIVER, GALLBLADDER, AND BILIARY TREE: Liver measures 20 cm. Decreased enhancement pattern. Heterogeneous enhancement. There is a well-defined 3.7 x 3.4 x 5.3 cm nonenhancing fluid density lesion in the anterior right hepatic lobe, likely segment 4A. Questionable tiny peripheral focal calcification. Main portal vein, hepatic veins and intrahepatic portion of the IVC are patent. No pericholecystic fluid collection or gallbladder wall thickening. No intrahepatic or extrahepatic biliary ductal dilatation. PANCREAS: No focal mass. There is a 5 mm low density in the body of the pancreas. No peripancreatic fluid collection. SPLEEN: 11 cm. No focal mass. ADRENAL GLANDS: No nodular lesions. KIDNEYS AND URETERS: No renal mass. No hydronephrosis. Less than 1 cm cystic lesions, bilaterally. Punctate 1.5 mm calcifications in the left pelvicalyceal system. BLADDER: Fluid-filled nearly collapsed. GASTROINTESTINAL TRACT: Abundant stool. Scattered diverticula throughout the large intestine mostly in the sigmoid colon. No intestinal obstruction pattern. No pneumoperitoneum. No ascites. No pneumatosis intestinalis. Appendix is normal. ABDOMINAL WALL: Status post mesh placement procedure in the periumbilical region. Fat-containing eventration in the right suprapubic region. LYMPH NODES: Multiple, nonspecific 1.4 cm lymph nodes in the retroperitoneum and periaortic iliac and to a lesser extent mesenteric. VASCULAR: Calcified plaques abdominal aorta wall and iliac arteries. No aneurysm or dissection. Retroaortic trajectory of the accessory left main renal vein. Calcified plaques in the coronary arteries. PELVIC VISCERA: Absent uterus. No masses in the adnexa. OSSEOUS STRUCTURES: Multilevel thoracolumbar spondylosis more conspicuous at L5-S1 resulting in grade 1 retrolisthesis and bilateral neuroforamina stenosis. CT/CT abdomen pelvis wo/w IV con IMPRESSION: 3.7 x 3.4 x 5.3 cm septated and partially calcified cyst, segment IVb, right hepatic lobe. Hepatomegaly and steatosis. Nonobstructing nephrolithiasis, left kidney. Bosniak type I cyst, bilaterally. Fat-containing eventration, suprapubic. Nonspecific lymphadenopathy, retroperitoneal. Fleischner guidelines were followed. Electronically signed by: Epi Salinas MD 03/21/2024 02:36 PM JASON
[2024-01-25] MEDS: iohexoL 350 MG/ML 100 ML INFUS..BTL 85 ML IV (09:30)
== END 2024-01-25 08:57 | disposition home or self-care (01) ==
LOC: HO.CT 08:56
PROVIDERS: PCP Nurse Practitioner Family; Visit Provider Internal Medicine
DX: K76.9 Liver disease, unspecified (principal)
CPT/HCPCS: 74178; Q9967

== ENCOUNTER → 2024-01-25 08:58 | Outpatient (BNV) | payer OTHER, SELFPAY | PROVIDERS: PCP Nurse Practitioner Family; Visit Provider Radiology Diagnostic Radiology | DX: K76.9 Liver disease, unspecified (principal) | CPT/HCPCS: 74178 ==

== ENCOUNTER 2024-02-02 00:28 | Observation (INO) | payer OTHER, SELFPAY ==
[2024-02-02] VITALS (11 sets, daily range): BP systolic 116–157; BP diastolic 62–97; PULSE 56–91; RESP 14–18; TEMP 36.1–36.8; O2SAT 94–99; BMI 36.8
--- NOTE | ~2024-02-02 | CT_ITS ---
EXAMINATION: CT ABDOMEN AND PELVIS WITHOUT CONTRAST CLINICAL INFORMATION: Abdominal pain. Rectal bleeding. COMPARISON: January 25, 2024 TECHNIQUE: Multidetector volumetric imaging was performed from the superior aspect of the liver through the pubic symphysis. Sagittal and coronal reformatted images were obtained on the technologist's workstation. This CT examination was performed using dose optimization techniques as appropriate, variously including the following: *Automated exposure control *Adjustment of mA and/or kV according to patient size (this includes techniques or standardized protocols for targeted exams where dose is matched to indication/reason for exam; i.e. extremities or head) *Use of iterative reconstruction technique DLP: 742 mGy-cm FINDINGS: LUNG BASES: The visualized lung bases are unremarkable. LIVER, GALLBLADDER, AND BILIARY TREE: The liver is of heterogeneous diminished attenuation. There is a stable nonspecific peripherally calcific structure measuring 4 cm at the dome of the liver. There is no intrahepatic biliary duct dilatation. The gallbladder is unremarkable with no evidence of radiopaque gallstones, gallbladder wall thickening, or obvious pericholecystic inflammatory changes. PANCREAS: Unremarkable. SPLEEN: Unremarkable. ADRENAL GLANDS: Unremarkable. KIDNEYS AND URETERS: The kidneys are normal in size, shape, and attenuation. There are scattered left renal calculi measuring up to 2 mm. There is no hydronephrosis. BLADDER: Unremarkable. GASTROINTESTINAL TRACT: There are diverticula of the transverse, descending and proximal sigmoid colon without diverticulitis. The appendix is visualized and is within normal limits. ABDOMINAL WALL: Hernia repair mesh is noted. No significant hernia is appreciated. LYMPH NODES: There are stable nonspecific retroperitoneal lymph nodes measuring up to 1.7 cm. VASCULAR: There is mild atherosclerotic plaque of the abdominal aorta. PELVIC VISCERA: Unremarkable. OSSEOUS STRUCTURES: Unremarkable. CT/CT abdomen pelvis wo IV con IMPRESSION: 1. Diverticulosis without diverticulitis. 2. Nonobstructing left renal calculi. 3. Hepatic steatosis. 4. Stable nonspecific peripherally calcific structure at the dome of the liver. 5. Stable nonspecific retroperitoneal lymph nodes measuring up to 1.7 cm. Fleischner guidelines were followed. Electronically signed by: Jesus Coleman MD 02/02/2024 02:43 AM EDT
--- NOTE | 2024-02-02 00:41 | ECG_ITS ---
Test Reason : WEAKNESS Blood Pressure : / mmHG Vent. Rate : 089 BPM Atrial Rate : 089 BPM P-R Int : 172 ms QRS Dur : 076 ms QT Int : 378 ms P-R-T Axes : 051 023 052 degrees QTc Int : 459 ms Normal sinus rhythm Cannot rule out Anterior infarct , age undetermined Abnormal ECG When compared with ECG of 17-NOV-2023 14:42, No significant change was found Referred By: Miriam Ovalle Electronically Signed By:Giovanny Caldera
--- NOTE | 2024-02-02 00:52 | PC.NURSE ---
MD to bedside for primary eval, rectal exam chaperoned by this RN. Off floor to CT at this time.
--- NOTE | 2024-02-02 00:52 | ED.NAVMDI ---
HPI - Nausea/Vomiting/Diarrhea General Chief complaint: Nausea/Vomiting/Diarrhea Stated complaint: weakness, dizziness, started 1 hour ago Time Seen by Provider: 02/02/24 00:41 Source: patient, family (Spouse) and EMS Mode of arrival: EMS Limitations: no limitations History of Present Illness ED Provider: DR. Ovalle HPI Narrative: 43-year-old female brought in by ambulance for evaluation of abdominal pain, nausea, and vomiting. Patient took Pepto-Bismol for her symptoms and she vomited a pinkish vomitus color, patient been having dark stool, known to have intermittent bright red blood per rectum for the past 5 years, was diagnosed previously with hemorrhoid and scheduled to have colonoscopy in [address] Diaz. History of kidney stones in the past that required surgical intervention in the past. Related Data Home Medications ?Medication ?Instructions ?Recorded ?Confirmed bupropion HCl 300 mg 24 hr tablet, 300 mg PO DAILY 09/08/23 01/22/24 extended release ibuprofen 200 mg tablet (IBU-200) 400 mg PO Q8H 09/19/23 01/22/24 meloxicam 15 mg tablet 15 mg PO DAILY 01/16/24 01/22/24 Previous Rx's ?Medication ?Instructions ?Recorded blood sugar diagnostic (FreeStyle #100 ea 07/20/20 Lite Strips) blood-glucose meter (FreeStyle #1 ea 07/20/20 [place] Lite kit) lancets 28 gauge (FreeStyle #100 ea 07/20/20 Lancets) acetaminophen 500 mg tablet 1,000 mg (2 x 500 mg) PO Q8H PRN 08/01/23 (Tylenol Extra Strength) back pain #60 tabs fluticasone propionate 50 1 spray intranasal BID #16 grams 09/08/23 mcg/actuation nasal spray,suspension lidocaine 5 % topical patch 1 patch topical DAILY 30 days #30 09/14/23 ea albuterol sulfate 90 mcg/actuation 2 puff inhalation Q4-6H PRN 09/19/23 aerosol inhaler shortness of breath or wheezing #1 ea lisinopril 5 mg tablet 5 mg PO DAILY #90 tabs 12/04/23 metformin 750 mg tablet,extended 750 mg PO BID #180 tabs 12/04/23 release 24 hr peg 3350-electrolytes 236 240 ml PO Q10M colonoscopy #4,000 12/04/23 gram-22.74 gram-6.74 gram-5.86 mL gram solution (Golytely) atorvastatin 10 mg tablet 10 mg PO BEDTIME #90 tabs 12/15/23 metoprolol tartrate 25 mg tablet 25 mg PO ONCE #90 tabs 12/15/23 omeprazole 20 mg capsule,delayed 20 mg PO DAILY #90 caps 12/15/23 release nicotine 10 mg inhalation 10 mg inhalation Q2-4H PRN 12/26/23 cartridge (Nicotrol) nicotine cravings #168 ea fluticasone furoate 100 1 inh inhalation DAILY #30 ea 01/08/24 mcg/actuation blister powder for inhalation (Arnuity Ellipta) gabapentin 100 mg capsule 100 - 400 mg (1 - 4 x 100 mg) PO 01/16/24 BEDTIME 30 days #90 caps ondansetron 4 mg disintegrating 4 mg PO Q8H PRN nausea and 01/22/24 tablet vomiting 5 days #15 tabs sumatriptan succinate 100 mg 100 mg PO .COMPLEX PRN migraine 01/22/24 tablet (Imitrex) headache #9 tabs cyclobenzaprine 5 mg tablet 5 mg PO BEDTIME #10 tabs 01/23/24 ibuprofen 600 mg tablet 600 mg PO Q8H PRN pain #30 tabs 01/23/24 Allergies Allergy/AdvReac Type Severity Reaction Status Date / Time hydrocodone [From VICODIN] Allergy Mild HIVES Verified 02/02/24 00:41 oxycodone [From PERCOCET] Allergy Mild HIVES Verified 02/02/24 00:41 azithromycin [AZITHROMYCIN] Allergy Unknown NAUSEA & Verified 02/02/24 00:41 VOMITING erythromycin base Allergy Unknown NAUSEA & Verified 02/02/24 00:41 [From ERYTHROCIN] VOMITING Review of Systems Review of Systems: All other systems are reviewed and are negative Constitutional: Reports as per HPI and Reports no additional constitutional complaints Eyes: Reports as per HPI and Reports no additional eye complaints Reports system reviewed and no additional complaints, except as documented Cardiovascular: Reports as per HPI and Reports no additional cardiovascular complaints Respiratory: Reports as per HPI and Reports no additional respiratory complaints Gastrointestinal: Reports as per HPI and Reports no additional gastrointestinal complaints Genitourinary: Reports no additional female genitourinary complaints Musculoskeletal: Reports no additional musculoskeletal complaints Skin/Breast: Reports system reviewed and no additional complaints, except as docu Psychiatric: Reports no additional psychiatric complaints Endocrine: Reports no additional endocrine complaints Hematologic/Lymphatic: Reports no additional hematologic/lymphatic complaints Allergic/Immunologic: Reports no additional allergic/immunologic complaints Reports system reviewed and no additional complaints, except as documented and Reports Abnormal speech present [facility] Past Medical History Medical History Periodic limb movements of sleep Anemia Asthma Nephrolithiasis Sleep apnea Migraine Sinusitis Breast pain, left Hypertension Sleep apnea Bipolar 1 disorder Depression Anxiety delivery delivered Diabetes Sciatica Kidney infection Kidney stones HTN (hypertension) Fibromyalgia Lupus Surgical History H/O section H/O: hysterectomy Family History Family History Maternal Grandmother HTN (hypertension) Diabetes Cancer Other FH: mental illness Substance use Social History Social History Housing: Apartment Alcohol intake: never Patient Tobacco Use Status: Former Tobacco user Smoked in Last 30 Days: No e-Cigarette/Vaping Use: Currently Using Use of substances other than those prescribed or required for medical reasons: Yes Substance Use Type: Marijuana Advance Directives: Yes Advance Directives Information Provided: No Advance Directives on File: No Do you have a plan to hurt others: No Plan Patient : No service: Yes Current occupational status: employed 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 Blood pressure elevated. Heart rate normal. Respiratory rate normal. Temperature normal. Oxygen saturation normal. Appearance: Alert. Oriented X3. No acute distress. Head: Normal external exam. Normocephalic. Atraumatic. No Jarvis signs noted. No raccoon eyes noted Eyes: PERRLA. EOMI. Conjunctiva and sclera normal. Eyelids normal. ENT: TM's Normal. Pharynx normal. Uvula midline. Moist mucous membranes. No trismus noted. No drooling noted. No muffled voice noted. Neck: Normal inspection. Neck supple. FROM. No adenopathy. Thyroid Normal. No meningeal signs. No neck mass noted. CVS: Normal heart rate and rhythm. Heart sound normal. No murmurs noted. Pulses normal throughout. Respiratory: No respiratory distress. Painless inspiration. Breath sounds normal. No wheezes/rales/rhonchi noted. Chest nontender. No accessory muscle usage noted or decreased air movement noted. Abdomen: Soft, left lower quadrant tenderness, no guarding, no rebound tenderness Bowel sounds normal in all 4 quadrants. No distention noted. No organomegaly noted. No visible injury noted. Rectal exam: Multiple external hemorrhoid bleeding, stool is black and guaiac positive. Back: Left CVA tenderness. Full range of motion noted. Skin: Skin warm and dry. Normal skin color. Normal skin turgor. No rashes/lesions/lacerations noted. Extremities: No lower extremity edema. Extremities exhibit normal range of motion. Extremities nontender. Neuro: Oriented X 3. Cranial nerve exam: II-XII are grossly intact No motor deficit. No sensory deficit. Reflexes normal. Course Reevaluation(s) Reevaluation #1: 43-year-old female came in with multiple symptoms. 1. Abdominal pain, dark stool. Patient take Pepto-Bismol which can make stool color is black, positive guaiac, rectal exam reveals multiple external hemorrhoids that appear stable with no bleeding or tenderness. 2. Patient required multiple doses of pain medication to control her symptoms. 3. Serial CBC in ED revealed drop of hematocrit which could be dilutional after patient received 1 unit of normal saline in the ED. 4. Patient with history of kidney stone CT abdomen and pelvis reveals no obstructing stones. Discussed with the hospitalist Dr. Kumar who agreed to admit the patient for observation and preformed serial CBCs and GI consult. Time: 05:46 Medications Administered Discontinued Medications Generic Name Dose Route Start Last Admin Trade Name Freq PRN Reason Stop Dose Admin Famotidine 20 mg 02/02/24 00:42 02/02/24 01:21 Famotidine/Pf 20 Mg/2 Ml Vial IVPUSH 02/02/24 00:43 20 mg ONCE ONE Administration Sodium Chloride 1,000 mls @ 999 mls/hr 02/02/24 00:41 02/02/24 02:43 Ns IV 02/02/24 01:41 Infused .Q1H1M ONE Infusion Ketorolac Tromethamine 15 mg 02/02/24 00:42 02/02/24 01:22 Ketorolac Tromethamine 15 Mg/Ml Vial IVPUSH 02/02/24 00:43 15 mg ONCE ONE Administration Morphine Sulfate 1 mg 02/02/24 00:42 02/02/24 01:22 Morphine Sulfate 2 Mg/Ml Cartridge IVPUSH 02/02/24 00:43 1 mg ONCE ONE Administration Protocol Morphine Sulfate 2 mg 02/02/24 03:44 02/02/24 04:15 Morphine Sulfate 2 Mg/Ml Cartridge IVPUSH 02/02/24 03:45 2 mg ONCE ONE Administration Protocol Ondansetron HCl 4 mg 02/02/24 00:42 02/02/24 01:21 Ondansetron Hcl 4 Mg/2 Ml Vial IVPUSH 02/02/24 00:43 4 mg ONCE ONE Administration Pantoprazole Sodium 40 mg 02/02/24 03:55 02/02/24 04:15 Pantoprazole Sodium 40 Mg/10 Ml Vial IVPUSH 02/02/24 03:56 40 mg ONCE ONE Administration Medical Decision Making Differential Diagnosis Differential Diagnoses: The differential diagnosis associated with the presentation includes (GI bleed, anemia, electrolyte abnormality, diverticular disease, colitis, kidney stone, UTI) Admission/Observation Consideration of admission/observation: Escalation of care including admission/observation considered Consult Healthcare Provider Management of the patient was discussed with: Hospitalist (Dr. Kumar) Lab Data MDM Lab Attestation statement: I reviewed the patient's lab results. 02/02/24 05:05 02/02/24 01:12 Labs: Lab Results 02/02/24 02/02/24 02/02/24 Range/Units 01:12 01:13 05:05 WBC 8.7 7.1 (4.8-10.8) X10*3/uL RBC 4.61 4.12 L (4.20-5.50) X10*6/uL Hgb 14.0 12.4 (12.0-16.0) g/dl Hct 39.4 35.3 L (37.0-47.0) % MCV 85.5 85.7 (80.0-98.0) fL MCH 30.4 30.1 (27.0-33.0) pg MCHC 35.5 H 35.1 H (31.0-35.0) g/dl RDW 13.0 13.1 (11.0-16.0) % Plt Count 277 210 (160-400) X10*3/uL MPV 9.4 9.2 L (9.4-12.3) fL Immature Gran % (Auto) 0.7 H 0.7 H (0.0-0.4) % Neut % (Auto) 65.0 69.0 (45-73) % Lymph % (Auto) 23.7 21.8 (20-40) % [place] % (Auto) 8.0 6.9 (2-11) % Eos % (Auto) 2.4 1.5 (0-4) % Baso % (Auto) 0.2 0.1 (0-2) % Lymph # (Auto) 2.1 1.6 (1.2-4.9) X10*3/uL [place] # (Auto) 0.7 0.5 (0.1-1.2) X10*3/uL Eos # (Auto) 0.2 0.1 (0.0-0.4) X10*3/uL Baso # (Auto) 0.0 0.0 (0.0-0.2) X10*3/uL Abs Immat Gran (auto) 0.06 H 0.05 H (0.00-0.03) X10*3/uL Absolute Neuts (auto) 5.7 4.9 (2.0-8.3) x10*3/uL Absolute Nucleated RBC 0.000 0.000 (0.0-0.012) X10*3/uL Nucleated RBC % (auto) 0.0 0.0 (0.0-0.2) /100WBC PT 11.6 (10.9-12.4) SEC INR 1.0 (0.9-1.1) Sodium 137 (135-145) mmol/L Potassium 4.5 (3.3-5.1) mmol/L Chloride 103 (96-108) mmol/L Carbon Dioxide 24 (22-29) mmol/L Anion Gap 15 (12-20) BUN 16 (9-16) mg/dL Creatinine 0.87 (0.5-1.4) mg/dL Estim Creat Clear Calc 92.0 Estimated GFR > 60 Random Glucose 114 (60-115) mg/dL Calcium 9.4 (8.4-10.2) mg/dL Total Bilirubin 0.3 (0.0-1.0) mg/dL Direct Bilirubin < 0.1 (0.0-0.5) mg/dL AST 65 H (5-31) U/L ALT 46 H (0-31) U/L Alkaline Phosphatase 121 H (39-117) U/L Total Protein 7.8 (6.5-8.0) g/dL Albumin 4.0 (3.5-5.0) g/dL Lipase 59 (8-78) U/L Urine Color Yellow Urine Appearance Cloudy Urine pH 5.5 (5.0-9.0) Ur Specific [place] 1.015 (1.005-1.025) Urine Protein Trace (Neg-Trace) mg/dL Urine Glucose (UA) Negative (Negative) mg/dL Urine Ketones Negative (Negative) mg/dL Urine Blood Negative (Negative) Urine Nitrite Negative (Negative) Ur Leukocyte Esterase Negative (Negative) Stool Occult Blood POSITIVE (NEGATIVE) Independent Interpretation I performed an independent interpretation of an: CT Scan (Abdomen and pelvis:1. Diverticulosis without diverticulitis. 2. Nonobstructing left renal calculi. 3. Hepatic steatosis. 4. Stable nonspecific peripherally calcific structure at the dome of the liver. 5. Stable nonspecific retroperitoneal lymph nodes measuring up to 1.7cm ) Radiology Impression Discussion of test interpretation with radiology: I have reviewed the radiologist's reading. Discharge Plan Discharge Clinical Impression: Abdominal pain, GI bleed Patient Disposition: Admitted As Inpatient Prescriptions: No Action lisinopril 5 mg tablet 5 mg PO DAILY Qty: 90 0RF metformin 750 mg tablet extended release 24 hr 750 mg PO BID Qty: 180 0RF Arnuity Ellipta 100 mcg/actuation blister with device 1 inh inhalation DAILY Qty: 30 6RF (DME) blood-glucose meter [FreeStyle [place] Lite] Kit See Rx Instructions .ROUTE .MEDSUPPLY Qty: 1 0RF Rx Instructions: As directed (DME) FreeStyle Lite Strips Strip See Rx Instructions .ROUTE .MEDSUPPLY Qty: 100 0RF Rx Instructions: As directed (DME) lancets [FreeStyle Lancets] 28 gauge misc See Rx Instructions .ROUTE .MEDSUPPLY Qty: 100 0RF Rx Instructions: As directed acetaminophen [Tylenol Extra Strength] 500 mg tablet 1,000 mg PO Q8H PRN (Reason: back pain) Qty: 60 0RF bupropion HCl 300 mg tablet extended release 24 hr 300 mg PO DAILY fluticasone propionate 50 mcg/actuation spray,suspension 1 spray intranasal BID Qty: 16 0RF Rx Instructions: administer into each nostril omeprazole 20 mg capsule,delayed release(DR/EC) 20 mg PO DAILY Qty: 90 0RF metoprolol tartrate 25 mg tablet 25 mg PO ONCE Qty: 90 0RF atorvastatin 10 mg tablet 10 mg PO BEDTIME Qty: 90 0RF ibuprofen [IBU-200] 200 mg tablet 400 mg PO Q8H albuterol sulfate 90 mcg/actuation HFA aerosol inhaler 2 puff inhalation Q4-6H PRN (Reason: shortness of breath or wheezing) Qty: 1 3RF sumatriptan succinate [Imitrex] 100 mg tablet 100 mg PO .COMPLEX PRN (Reason: migraine headache) Qty: 9 4RF Rx Instructions: 100 mg orally PRN; ondansetron 4 mg tablet,disintegrating 4 mg PO Q8H PRN (Reason: nausea and vomiting) 5 Days Qty: 15 12RF lidocaine 5 % adhesive patch,medicated 1 patch topical DAILY 30 Days Qty: 30 0RF Rx Instructions: leave on most painful area for up to 12 hrs meloxicam 15 mg tablet 15 mg PO DAILY gabapentin 100 mg capsule 100 - 400 mg PO BEDTIME 30 Days Qty: 90 3RF peg 3350-electrolytes [Golytely] 236-22.74-6.74 -5.86 gram recon soln 240 ml PO Q10M Qty: 4000 0RF Rx Instructions: as per split prep instructions, until fecal effluent is clear Nicotrol 10 mg cartridge 10 mg inhalation Q2-4H PRN (Reason: nicotine cravings) Qty: 168 0RF ibuprofen 600 mg tablet 600 mg PO Q8H PRN (Reason: pain) Qty: 30 0RF cyclobenzaprine 5 mg tablet 5 mg PO BEDTIME Qty: 10 0RF Print Language: Malay
[2024-02-02] MEDS: 0.9 % Sodium Chloride 1,000 ML 999 ML IV (01:21)
[2024-02-02] MEDS: Famotidine/PF 20 MG/2 ML VIAL IVPUSH (01:21)
[2024-02-02] MEDS: ondansetron HCL 4 MG/2 ML VIAL IVPUSH (01:21)
[2024-02-02] MEDS: Morphine Sulfate 2 MG/ML CARTRIDGE 1 MG IVPUSH (01:22)
[2024-02-02] MEDS: Ketorolac Tromethamine 15 MG/ML VIAL IVPUSH (01:22)
[2024-02-02 01:23] LABS: MANUAL DIFF FLAG NO
[2024-02-02 01:25] LABS: Basophils Percent Auto 0.2 % (0-2); Eosinophils Absolute Auto 0.2 X10*3/uL (0.0-0.4); Eosinophils Percent Auto 2.4 % (0-4); Hematocrit 39.4 % (37.0-47.0); Imm Gran Abs Auto 0.06 X10*3/uL (0.00-0.03); Imm Gran Pct Auto 0.7 % (0.0-0.4); Lymphocytes Absolute Auto 2.1 X10*3/uL (1.2-4.9); Lymphocytes Percent Auto 23.7 % (20-40); Mean Corpuscular HGB Conc 35.5 g/dl (31.0-35.0); Mean Corpuscular Hemoglobin 30.4 pg (27.0-33.0); Mean Corpuscular Volume 85.5 fL (80.0-98.0); Mean Platelet Volume 9.4 fL (9.4-12.3); Monocytes Absolute Auto 0.7 X10*3/uL (0.1-1.2); Neutrophils Absolute Auto 5.7 x10*3/uL (2.0-8.3); Platelet Count 277 X10*3/uL (160-400); Red Blood Count 4.61 X10*6/uL (4.20-5.50); White Blood Count 8.7 X10*3/uL (4.8-10.8)
[2024-02-02 01:35] LABS: Appearance Urine Cloudy; Color Urine Yellow; Glucose Urine UA Negative (Negative); Leukocyte Esterase Urine Negative (Negative); Nitrite Urine Negative (Negative); OBS Int Ctl Valid YES; OBS1 POSITIVE (NEGATIVE); PH 5.5 (5.0-9.0); Specific Gravity - Urine 1.015 (1.005-1.025); Urine Blood Negative (Negative); Urine Ketones Negative (Negative); Urine Protein Trace mg/dL (Neg-Trace)
[2024-02-02 01:36] LABS: Prothrombin Time 11.6 SEC (10.9-12.4)
[2024-02-02 02:16] LABS: Alanine Aminotransferase 46 U/L (0-31); Alkaline Phosphatase 121 U/L (39-117); Anion Gap 15 (12-20); Aspartate Amino Transferase 65 U/L (5-31); Bilirubin Direct < 0.1 mg/dL (0.0-0.5); Bilirubin Total 0.3 mg/dL (0.0-1.0); Blood Urea Nitrogen 16 mg/dL (9-16); Calcium 9.4 mg/dL (8.4-10.2); Carbon Dioxide 24 mmol/L (22-29); Chloride 103 mmol/L (96-108); Estimated Glomerular Filt Rate > 60; Glucose Random 114 mg/dL (60-115); Lipase 59 U/L (8-78); Potassium 4.5 mmol/L (3.3-5.1); Sodium 137 mmol/L (135-145); Total Protein 7.8 g/dL (6.5-8.0)
[2024-02-02] MEDS: Pantoprazole Sodium 40 MG/10 ML VIAL IVPUSH ×3 (04:15→15:07)
[2024-02-02] MEDS: Morphine Sulfate 2 MG/ML CARTRIDGE IVPUSH (04:15)
[2024-02-02 05:11] LABS: Basophils Percent Auto 0.1 % (0-2); Eosinophils Absolute Auto 0.1 X10*3/uL (0.0-0.4); Eosinophils Percent Auto 1.5 % (0-4); Hematocrit 35.3 % (37.0-47.0); Hemoglobin 12.4 g/dl (12.0-16.0); Imm Gran Abs Auto 0.05 X10*3/uL (0.00-0.03); Imm Gran Pct Auto 0.7 % (0.0-0.4); Lymphocytes Absolute Auto 1.6 X10*3/uL (1.2-4.9); Lymphocytes Percent Auto 21.8 % (20-40); MANUAL DIFF FLAG NO; Mean Corpuscular HGB Conc 35.1 g/dl (31.0-35.0); Mean Corpuscular Hemoglobin 30.1 pg (27.0-33.0); Mean Corpuscular Volume 85.7 fL (80.0-98.0); Mean Platelet Volume 9.2 fL (9.4-12.3); Monocytes Absolute Auto 0.5 X10*3/uL (0.1-1.2); Monocytes Percent Auto 6.9 % (2-11); Neutrophils Absolute Auto 4.9 x10*3/uL (2.0-8.3); Platelet Count 210 X10*3/uL (160-400); Red Blood Count 4.12 X10*6/uL (4.20-5.50); Red Cell Distribution Width 13.1 % (11.0-16.0); White Blood Count 7.1 X10*3/uL (4.8-10.8)
--- NOTE | 2024-02-02 05:44 | P.HPHOSP_ITS ---
History of Present Illness Date of Service: 02/02/24 Chief Complaint: Abdominal pain This is a 43-year-old female with pertinent history of migraine, [id number]-vziegwdmb diabetes mellitus type 2, mood disorder, mixed hyperlipidemia, essential hypertension, restless leg syndrome who presents to the emergency department for evaluation of abdominal pain and black stools. Patient states she has been having blood in stool for many years. Patient saw gastroenterology outpatient and was scheduled for a colonoscopy in 2 months. She does have external hemorrhoids. Initially she said patient 1st noticed black stool on the day of presentation but later said she has been having black stools for a while. Had loose stools 2 days prior to presentation but she has been taking fwzj-deu-paaojoy laxatives. Only 1 episode of well formed bowel movement on the day of presentation. Also has been having generalized abdominal discomfort which has been ongoing for a while. Complaining of fatigue, generalized body ache, headache. No fever, chills, chest discomfort, palpitations, shortness of breath, changes in urinary habits. In the emergency department, stool occult blood noted to be positive. Hemoglobin stable. Patient given IV fluids and IV Protonix. Review of Systems 2 Constitutional: Constitutional: Reports fatigue, Reports lethargy and Reports malaise Cardiovascular: Cardiovascular: Reports no additional cardiovascular complaints Respiratory: Respiratory: Reports no additional respiratory complaints Gastrointestinal: Gastrointestinal: Reports abdominal pain, Reports melena and Reports hematochezia Genitourinary: Genitourinary: Reports no additional female genitourinary complaints Endocrine: Endocrine: Reports fatigue PMFSH Medical History Periodic limb movements of sleep Anemia Asthma Nephrolithiasis Sleep apnea Migraine Sinusitis Breast pain, left Hypertension Sleep apnea Bipolar 1 disorder Depression Anxiety delivery delivered Diabetes Sciatica Kidney infection Kidney stones HTN (hypertension) Fibromyalgia Lupus Family History Maternal Grandmother HTN (hypertension) Diabetes Cancer Other FH: mental illness Substance use Surgical History H/O section H/O: hysterectomy Social History Housing: Apartment Alcohol intake: never Patient Tobacco Use Status: Former Tobacco user Smoked in Last 30 Days: No e-Cigarette/Vaping Use: Currently Using Use of substances other than those prescribed or required for medical reasons: Yes Substance Use Type: Marijuana Advance Directives: Yes Advance Directives Information Provided: No Advance Directives on File: No Do you have a plan to hurt others: No Plan Patient : No service: Yes Current occupational status: employed 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 Current occupational exposures/hazards: No Cognitive needs: No Hearing needs: No Vision needs: Yes (glasses) Meds Allergies Allergy/AdvReac Type Severity Reaction Status Date / Time hydrocodone [From VICODIN] Allergy Mild HIVES Verified 02/02/24 00:41 oxycodone [From PERCOCET] Allergy Mild HIVES Verified 02/02/24 00:41 azithromycin [AZITHROMYCIN] Allergy Unknown NAUSEA & Verified 02/02/24 00:41 VOMITING erythromycin base Allergy Unknown NAUSEA & Verified 02/02/24 00:41 [From ERYTHROCIN] VOMITING Home Medications ?Medication ?Instructions ?Recorded ?Confirmed ?Last Taken ?Type bupropion HCl 300 mg 24 hr tablet, 300 mg PO DAILY 09/08/23 01/22/24 Unknown History extended release ibuprofen 200 mg tablet (IBU-200) 400 mg PO Q8H 09/19/23 01/22/24 Unknown History meloxicam 15 mg tablet 15 mg PO DAILY 01/16/24 01/22/24 Unknown History Physical Exam 2 Vital Signs and Narrative: Vital Signs: Last Vital Signs Temp 98.1 F 02/02/24 02:14 Pulse 73 02/02/24 02:14 Resp 18 02/02/24 02:14 BP 123/73 02/02/24 02:14 Pulse Ox 98 02/02/24 02:14 O2 Del Method Room Air 02/02/24 02:14 BMI result Body Mass Index 36.8 Middle-aged female lying in bed in no distress Neck supple, no JVD Regular rate and rhythm, S1-S2 heard Regular breath sounds bilaterally, no wheezing or crackles appreciated Abdomen soft nontender, no guarding, no rigidity Patient is awake, alert and oriented to self, place, time and person ; no focal motor deficit Psych: Normal mood No pedal edema Results Labs 02/02/24 05:05 02/02/24 01:12 Labs: Laboratory Results - last 24 hr 02/02/24 02/02/24 02/02/24 01:12 01:13 05:05 MCV 85.5 85.7 MCH 30.4 30.1 MCHC 35.5 H 35.1 H RDW 13.0 13.1 Plt Count 277 210 MPV 9.4 9.2 L Immature Gran % (Auto) 0.7 H 0.7 H Neut % (Auto) 65.0 69.0 Lymph % (Auto) 23.7 21.8 [place] % (Auto) 8.0 6.9 Eos % (Auto) 2.4 1.5 Baso % (Auto) 0.2 0.1 Lymph # (Auto) 2.1 1.6 [place] # (Auto) 0.7 0.5 Eos # (Auto) 0.2 0.1 Baso # (Auto) 0.0 0.0 Abs Immat Gran (auto) 0.06 H 0.05 H Absolute Neuts (auto) 5.7 4.9 Absolute Nucleated RBC 0.000 0.000 Nucleated RBC % (auto) 0.0 0.0 PT 11.6 INR 1.0 Anion Gap 15 Estim Creat Clear Calc 92.0 Estimated GFR > 60 Random Glucose 114 Calcium 9.4 Total Bilirubin 0.3 Direct Bilirubin < 0.1 AST 65 H ALT 46 H Alkaline Phosphatase 121 H Total Protein 7.8 Albumin 4.0 Lipase 59 Urine Color Yellow Urine Appearance Cloudy Urine pH 5.5 Ur Specific [place] 1.015 Urine Protein Trace Urine Glucose (UA) Negative Urine Ketones Negative Urine Blood Negative Urine Nitrite Negative Ur Leukocyte Esterase Negative Stool Occult Blood POSITIVE Imaging Radiologist's Impressions: Impressions Abdomen/Pelvis CT 02/02/24 00:42 IMPRESSION: 1. Diverticulosis without diverticulitis. 2. Nonobstructing left renal calculi. 3. Hepatic steatosis. 4. Stable nonspecific peripherally calcific structure at the dome of the liver. 5. Stable nonspecific retroperitoneal lymph nodes measuring up to 1.7 cm. Fleischner guidelines were followed. Electronically signed by: Jesus Coleman MD 02/02/2024 02:43 AM EDT Assessment and Plan (1) Black stool: Status: Acute Plan This is a 43-year-old female with pertinent history of migraine, gvh-axhrbiw-jbgqtnniz diabetes mellitus type 2, mood disorder, mixed hyperlipidemia, essential hypertension, restless leg syndrome who presents to the emergency department for evaluation of abdominal pain and black stools. #. ?Acute GI bleed: Will admit patient with cardiac monitoring. Will keep patient NPO and consult Gastroenterology. Initiating IV Protonix. Patient does have external hemorrhoids but endorses black stool and abdominal pain. Does take NSAIDs. Closely monitor H&H #. Hypertension: Resume p.o. antihypertensives once able to take p.o. #. Mood disorder: Continue home mood stabilizers once able to take p.o. #. Sqr-wydhkql-qsrkkyabh diabetes mellitus type 2: Initiating Accu-Cheks with sliding scale insulin every 6 hours Med rec pending DVT prophylaxis: Mechanical Full code Quality Stroke Does the patient have a stroke diagnosis?: No VTE Prior VTE?: No VTE Risk Level:: Medical - moderate - high VTE Device Contraindication: N/A - Device Ordered VTE Drug Contraindication: Treatment Not Indicated
[2024-02-02 06:13] LABS: Glucose, Whole Blood 140 mg/dL (60-115)
--- NOTE | 2024-02-02 07:20 | P.CNGI_ITS ---
History of Present Illness Data of Consult Service Date: 02/02/24 Requesting physician: Estrellita Kumar Primary Care Provider: Unknown Physician HPI Reason for consult: Abdominal pain, black stools 43 YF with migraine, [id number] diabetes mellitus type 2, mood disorder, mixed hyperlipidemia, essential hypertension, obesity, restless leg syndrome [place] [facility] [place] [facility] [place] with abdominal pain and black stools. Patient reported she has been having blood in stool for the past several years. Patient was seen by Dr Diaz and is scheduled for a colonoscopy on 04/16/24. She does have external hemorrhoids. Pt reported noticing black stool on the day of presentation and later said she has been having black stools for a while. Had loose stools 2 days prior to presentation but she has been taking [id number]-vsmonnv laxatives. Only 1 episode of well formed bowel movement on the day of presentation. Pt complains of generalized abdominal discomfort which has been ongoing for a while. Complaining of fatigue, generalized body ache, headache. No fever, chills, chest discomfort, palpitations, shortness of breath, changes in urinary habits. In the emergency department, stool occult blood noted to be positive. Hemoglobin stable. Patient given IV fluids and IV Protonix. 02/01/[address] SCAN SHOWED: 1. Diverticulosis without diverticulitis. 2. Nonobstructing left renal calculi. 3. Hepatic steatosis. 4. Stable nonspecific peripherally calcific structure at the dome of the liver. 5. Stable nonspecific retroperitoneal lymph nodes measuring up to 1.7 cm. Review of Systems 2 Constitutional: Constitutional: Reports fatigue, Reports lethargy and Reports malaise Cardiovascular: Cardiovascular: Reports no additional cardiovascular complaints Respiratory: Respiratory: Reports no additional respiratory complaints Gastrointestinal: Gastrointestinal: Reports abdominal pain, Reports melena and Reports hematochezia Genitourinary: Genitourinary: Reports no additional female genitourinary complaints Endocrine: Endocrine: Reports fatigue PMFSH Past Medical History Medical History Periodic limb movements of sleep Anemia Asthma Nephrolithiasis Sleep apnea Migraine Sinusitis Breast pain, left Hypertension Sleep apnea Bipolar 1 disorder Depression Anxiety delivery delivered Diabetes Sciatica Kidney infection Kidney stones HTN (hypertension) Fibromyalgia Lupus Family History Family History Maternal Grandmother HTN (hypertension) Diabetes Cancer Other FH: mental illness Substance use Surgical History Surgical History H/O section H/O: hysterectomy Social History Social History Housing: Apartment Are you a primary home health care social worker to a significant other at home: No Do you presently have visiting nurse or other home services: No Alcohol intake: never Patient Tobacco Use Status: Current everyday Tobacco user Tobacco use type: Smokeless Tobacco e-Cigarette/Vaping Use: Currently Using Substance Use Type: Marijuana Advance Directives Date on File: 02/02/24 service: No Current occupational status: employed 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 Current occupational exposures/hazards: No Cognitive needs: No Hearing needs: No Vision needs: Yes (glasses) Meds Allergies Allergy/AdvReac Type Severity Reaction Status Date / Time hydrocodone [From VICODIN] Allergy Mild HIVES Verified 02/02/24 00:41 oxycodone [From PERCOCET] Allergy Mild HIVES Verified 02/02/24 00:41 azithromycin [AZITHROMYCIN] Allergy Unknown NAUSEA & Verified 02/02/24 00:41 VOMITING erythromycin base Allergy Unknown NAUSEA & Verified 02/02/24 00:41 [From ERYTHROCIN] VOMITING Active Medications: Current Medications Acetaminophen (Acetaminophen 325 Mg Tablet) 650 mg PO Q6H PRN PRN Reason: Pain, Mild (Pain Scale 1-3), fever or headache Calcium Carbonate (Calcium Carbonate 750 Mg Tab.Chew) 750 mg PO Q4H PRN PRN Reason: Heartburn Glucose (Glucose Gel 15 Gm Gel..Gram.) 15 gm PO Q15M PRN; Protocol PRN Reason: per Hypoglycemia Standing Ord. Dextrose (D10) 250 mls @ 750 mls/hr IV Q15M PRN; Protocol PRN Reason: per Hypoglycemia Standing Ord. Insulin Human Lispro (Insulin Lispro 100 Unit/Ml 3 Ml Vial) 0 unit SUBCUT Q6H [facility]; Protocol Last Admin: 02/02/24 06:11 Dose: Not Given Magnesium Hydroxide (Milk Of Magnesia 30 Ml Oral.Susp) 30 ml PO DAILY PRN PRN Reason: Constipation Melatonin (Melatonin 3 Mg Tablet) 6 mg PO BEDTIME PRN PRN Reason: Insomnia Ondansetron HCl (Ondansetron Hcl 4 Mg/2 Ml Vial) 4 mg IVPUSH Q8H PRN PRN Reason: Nausea and Vomiting Pantoprazole Sodium (Pantoprazole Sodium 40 Mg/10 Ml Vial) 40 mg IVPUSH BID@0630,1630 [facility] Last Admin: 02/02/24 06:13 Dose: 40 mg Sodium Chloride (0.9 % Sodium Chloride Flush 3 Ml Syringe) 3 ml IVFLUSH QSHIFT [facility] Last Admin: 02/02/24 06:55 Dose: Not Given Home Medications ?Medication ?Instructions ?Recorded ?Confirmed ?Last Taken ?Type bupropion HCl 300 mg 24 hr tablet, 300 mg PO DAILY 09/08/23 02/02/24 02/01/24 History extended release cyclobenzaprine 5 mg tablet 5 mg PO BEDTIME PRN prn 02/02/24 02/02/24 Unknown History fluticasone propionate 50 1 spray intranasal BID PRN 02/02/24 02/02/24 Unknown History mcg/actuation nasal allergies spray,suspension lidocaine 5 % topical patch 1 patch topical DAILY PRN Pain 02/02/24 02/02/24 02/01/24 History metoprolol tartrate 25 mg tablet 25 mg PO DAILY 02/02/24 02/02/24 02/01/24 History sumatriptan succinate 100 mg 100 mg PO DAILY PRN migraine 02/02/24 02/02/24 Unknown History tablet (Imitrex) headache Physical Exam 2 Vital Signs: Vital Signs: Last Vital Signs Temp 97.8 F 02/02/24 06:21 Pulse 80 02/02/24 06:21 Resp 16 02/02/24 06:21 BP 138/88 02/02/24 06:21 Pulse Ox 99 02/02/24 06:21 O2 Del Method Room Air 02/02/24 06:21 BMI result Body Mass Index 36.8 Const: General: healthy appearing and no acute distress Nutritional Appearance: obese Orientation/consciousness: patient oriented x3 L imitations: no limitations HEENT: Head: Yes normal to inspection Ears: hearing grossly normal bilaterally Eyes: Sclerae: sclerae normal Pupils: Equal, round and reactive pupils present Neck: Neck: Yes normal visual inspection Chest: Chest palpation & inspection: normal inspection of the chest Resp: Effort & Inspection: normal respiratory effort Auscultation: clear to auscultation bilaterally Cardio: Palpation: normal PMI Rate: regular rate Rhythm: regular rhythm Heart sounds: S1 normal heart sound present, S2 normal heart sound present and no murmurs GI: Palpation (GI): Soft to palpation, Tenderness to palpation present (GI) (minimal epigastric tenderness) and No hepatosplenomegaly present A uscultation: normal bowel sounds Rectal Exam - Female: deferred Skin: General skin exam: no rashes or lesions noted Neuro: General: patient oriented x3, gait normal and moves all extremities Cranial nerves: Yes Equal, round and reactive pupils present Psych: Appearance: grossly normal Mental Status: mental status grossly normal Results Labs 02/03/24 06:17 02/03/24 06:17 Labs: Short CBC 02/02/24 02/02/24 Range/Units 01:12 05:05 WBC 8.7 7.1 (4.8-10.8) X10*3/uL Hgb 14.0 12.4 (12.0-16.0) g/dl Hct 39.4 35.3 L (37.0-47.0) % Plt Count 277 210 (160-400) X10*3/uL BMP 02/02/24 01:12 Sodium 137 Potassium 4.5 Chloride 103 Carbon Dioxide 24 BUN 16 Creatinine 0.87 Calcium 9.4 Liver Function 02/02/24 Range/Units 01:12 Total Bilirubin 0.3 (0.0-1.0) mg/dL Direct Bilirubin < 0.1 (0.0-0.5) mg/dL AST 65 H (5-31) U/L ALT 46 H (0-31) U/L Alkaline Phosphatase 121 H (39-117) U/L Albumin 4.0 (3.5-5.0) g/dL Urine 02/02/24 Range/Units 01:13 Urine Color Yellow Urine Appearance Cloudy Urine pH 5.5 (5.0-9.0) Ur Specific [place] 1.015 (1.005-1.025) Urine Protein Trace (Neg-Trace) mg/dL Urine Glucose (UA) Negative (Negative) mg/dL Assessment and Plan (1) GI bleed: Status: Acute (2) Abdominal pain: Status: Acute (3) Black tarry stools: Status: Acute Plan 43 YF with migraine, [id number] diabetes mellitus type 2, mood disorder, mixed hyperlipidemia, essential hypertension, obesity, restless leg syndrome seen [place] [facility] [place] with abdominal pain and black stools. Lab show a decrease in Hb from 14 to 12.4. Abd pain likely from PUD, erosive esophagitis, gastric or duodenitis Pt is scheduled for an EGD and Colon with Dr Diaz on 02/15/24 RECOMMENDATIONS: 1. Agree with IV PPI 2. Moniter CBC twice daily x 24 hrs 3. Proceed with the of upper endoscopy today. EGD procedure and potential complications including bleeding, perforation, reaction to anesthetic and aspiration were reviewed with the patient. Procedures Date of Service Date of Service: 02/10/24
--- NOTE | 2024-02-02 08:24 | MHC.CM.PN ---
Attempted to meet with patient in regards to discharge planning. Patient currently on the phone. Will attempt to meet again. Continue to monitor for d/c needs.
--- NOTE | 2024-02-02 09:05 | PHA.MEDREC ---
Pharmacy Consult ? Medication Reconciliation Pharmacy has completed the medication reconciliation. Confirmed all medications with claims, and spoke with patient to confirm medication based on her list from [facility]. Patient states her knows her medications better than her, and he sets up her pills daily, left voicemail with to also confirm medications and doses. Pt states she takes cyclobenzaprine prn, flonase prn, and states she takes metoprolol 25mg daily, even though claims state 12.5 mg BID. Will confirm metoprolol dose with .
--- NOTE | 2024-02-02 09:29 | HO.PM.IMPN ---
Subjective Subjective Date of Service: 02/02/24 Interval History: No further BM Physical Exam Vital Signs: Vital Signs: Last Vital Signs Temp 97.9 F 02/02/24 07:36 Pulse 78 02/02/24 07:36 Resp 16 02/02/24 07:36 BP 136/96 H 02/02/24 07:36 Pulse Ox 99 02/02/24 07:36 O2 Del Method Room Air 02/02/24 07:36 BMI result Body Mass Index 36.8 General: AO X 3, no acute distress Resp: CTA bilateral, no accessory muscles used CVS: S1,S2,RRR GI: soft, non tender, non distended Neuro: motor grossly intact, alert Psych: appropriate affect, appropriate insight Objective Data Active Medications Acetaminophen (Acetaminophen 325 Mg Tablet) 650 mg PO Q6H PRN PRN Reason: Pain, Mild (Pain Scale 1-3), fever or headache Atorvastatin Calcium (Atorvastatin Calcium 10 Mg Tablet) 10 mg PO BEDTIME [facility] Bupropion HCl (Bupropion Hcl Xl 300 Mg Tab.Er.24h) 300 mg PO DAILY [facility] Calcium Carbonate (Calcium Carbonate 750 Mg Tab.Chew) 750 mg PO Q4H PRN PRN Reason: Heartburn Cyclobenzaprine HCl (Cyclobenzaprine Hcl 5 Mg Tablet) 5 mg PO BEDTIME PRN PRN Reason: prn Fluticasone Propionate (Fluticasone Propionate 100 Mcg Blst.W.Dev) 1 puff INHALE RBID [facility] Glucose (Glucose Gel 15 Gm Gel..Gram.) 15 gm PO Q15M PRN; Protocol PRN Reason: per Hypoglycemia Standing Ord. Dextrose (D10) 250 mls @ 750 mls/hr IV Q15M PRN; Protocol PRN Reason: per Hypoglycemia Standing Ord. Insulin Human Lispro (Insulin Lispro 100 Unit/Ml 3 Ml Vial) 0 unit SUBCUT Q6H [facility]; Protocol Last Admin: 02/02/24 06:11 Dose: Not Given Documented By: RYDER Non-Admin Reason: No Insulin Coverage Lisinopril (Lisinopril 5 Mg Tablet) 5 mg PO DAILY [facility]; Protocol Magnesium Hydroxide (Milk Of Magnesia 30 Ml Oral.Susp) 30 ml PO DAILY PRN PRN Reason: Constipation Melatonin (Melatonin 3 Mg Tablet) 6 mg PO BEDTIME PRN PRN Reason: Insomnia Metoprolol Tartrate (Metoprolol Tartrate 25 Mg Tablet) 25 mg PO DAILY [facility]; Protocol Naloxone HCl (Naloxone Hcl 0.4 Mg/Ml Vial) 0.04 mg IVPUSH Q5M PRN PRN Reason: Excessive sedation or RR < 8 Ondansetron HCl (Ondansetron Hcl 4 Mg/2 Ml Vial) 4 mg IVPUSH Q8H PRN PRN Reason: Nausea and Vomiting Pantoprazole Sodium (Pantoprazole Sodium 40 Mg/10 Ml Vial) 40 mg IVPUSH BID@0630,1630 [facility] Last Admin: 02/02/24 06:13 Dose: 40 mg Documented By: RYDER Sodium Chloride (0.9 % Sodium Chloride Flush 3 Ml Syringe) 3 ml IVFLUSH QSHIFT [facility] Last Admin: 02/02/24 06:55 Dose: Not Given Documented By: GATO Non-Admin Reason: See Note Labs 02/02/24 05:05 02/02/24 01:12 Labs: Laboratory Results - last 24 hr 02/02/24 02/02/24 02/02/24 01:12 01:13 05:05 MCV 85.5 85.7 MCH 30.4 30.1 MCHC 35.5 H 35.1 H RDW 13.0 13.1 Plt Count 277 210 MPV 9.4 9.2 L Immature Gran % (Auto) 0.7 H 0.7 H Neut % (Auto) 65.0 69.0 Lymph % (Auto) 23.7 21.8 [place] % (Auto) 8.0 6.9 Eos % (Auto) 2.4 1.5 Baso % (Auto) 0.2 0.1 Lymph # (Auto) 2.1 1.6 [place] # (Auto) 0.7 0.5 Eos # (Auto) 0.2 0.1 Baso # (Auto) 0.0 0.0 Abs Immat Gran (auto) 0.06 H 0.05 H Absolute Neuts (auto) 5.7 4.9 Absolute Nucleated RBC 0.000 0.000 Nucleated RBC % (auto) 0.0 0.0 PT 11.6 INR 1.0 Anion Gap 15 Estim Creat Clear Calc 92.0 Estimated GFR > 60 POC Glucose Random Glucose 114 Calcium 9.4 Total Bilirubin 0.3 Direct Bilirubin < 0.1 AST 65 H ALT 46 H Alkaline Phosphatase 121 H Total Protein 7.8 Albumin 4.0 Lipase 59 Urine Color Yellow Urine Appearance Cloudy Urine pH 5.5 Ur Specific [place] 1.015 Urine Protein Trace Urine Glucose (UA) Negative Urine Ketones Negative Urine Blood Negative Urine Nitrite Negative Ur Leukocyte Esterase Negative Stool Occult Blood POSITIVE 02/02/24 06:08 MCV MCH MCHC RDW Plt Count MPV Immature Gran % (Auto) Neut % (Auto) Lymph % (Auto) [place] % (Auto) Eos % (Auto) Baso % (Auto) Lymph # (Auto) [place] # (Auto) Eos # (Auto) Baso # (Auto) Abs Immat Gran (auto) Absolute Neuts (auto) Absolute Nucleated RBC Nucleated RBC % (auto) PT INR Anion Gap Estim Creat Clear Calc Estimated GFR POC Glucose 140 H Random Glucose Calcium Total Bilirubin Direct Bilirubin AST ALT Alkaline Phosphatase Total Protein Albumin Lipase Urine Color Urine Appearance Urine pH Ur Specific [place] Urine Protein Urine Glucose (UA) Urine Ketones Urine Blood Urine Nitrite Ur Leukocyte Esterase Stool Occult Blood Assessment and Plan (1) GI bleed: Status: Acute Plan 43F PMH migraine, diabetes, mood disorder, hyperlipidemia, hypertension, restless leg syndrome presented with abdominal pain and black stools Melena Hemoglobin stable, continue IV ppi, plan for EGD today Hypertension Continue metoprolol Diabetes Hold metformin Insulin sliding scale Mood disorder Continue bupropion Obesity Weight loss recommended DVT prophylaxis-mechanical due to GI bleed Full code reason for continued hospitalization: Working up GI bleed, IV PPI Quality Stroke Does the patient have a stroke diagnosis?: No VTE Prior VTE?: No VTE Risk Level:: Medical - moderate - high VTE Device Contraindication: N/A - Device Ordered VTE Drug Contraindication: Treatment Not Indicated
[2024-02-02 12:09] LABS: Glucose, Whole Blood 117 mg/dL (60-115)
--- NOTE | 2024-02-02 13:40 | HO.ANESPROP2 ---
[facility] Active Problems Active Problems: All Active Problems GI bleed (Acute) Abdominal pain (Acute) Black stool (Acute) Black tarry stools (Acute) Dysphagia (Acute) Migraine headache without aura (Acute) Obstructive sleep apnea (Acute) Leg cramps (Acute) Anemia (Acute) Low vitamin B12 level (Acute) Asthma (Acute) Right ankle instability (Acute) Cervical cancer screening (Acute) Abnormal mammogram of right breast (Acute) Change in bowel habit (Acute) Bilateral primary osteoarthritis of hip (Acute) Sacroiliac joint pain (Acute) Greater trochanteric bursitis of both hips (Acute) Bilateral hip pain (Acute) Restless leg syndrome (Acute) Parasomnia (Acute) Excessive daytime sleepiness (Acute) Nocturnal dyspnea (Acute) Obesity with serious comorbidity (Acute) Seasonal allergies (Acute) CAD (coronary artery disease) (Acute) DM type 2 causing complication (Acute) IGNACIO on CPAP (Acute) Menopause (Acute) Encounter for screening involving social determinants of health (SDoH) (Acute) Mild intermittent asthma in adult without complication (Acute) JONATHON (generalized anxiety disorder) (Acute) MDD (major depressive disorder), recurrent episode (Acute) Hemorrhoid (Acute) Lumbar pain (Acute) Chronic constipation (Acute) Bipolar 1 disorder (Acute) Hernia (Acute) PTSD (post-traumatic stress disorder) (Acute) Lupus (Acute) HTN (hypertension) (Acute) Fibromyalgia (Acute) Past Medical History Medical History Periodic limb movements of sleep Anemia Asthma Nephrolithiasis Sleep apnea Migraine Sinusitis Breast pain, left Hypertension Sleep apnea Bipolar 1 disorder Depression Anxiety delivery delivered Diabetes Sciatica Kidney infection Kidney stones HTN (hypertension) Fibromyalgia Lupus Family History Family History Maternal Grandmother HTN (hypertension) Diabetes Cancer Other FH: mental illness Substance use Family history of problems with anesthesia: No Surgical History Surgical History H/O section H/O: hysterectomy History of Problems with Anesthesia: No Social History Social History Housing: Apartment Are you a primary medicare coordinator to a significant other at home: No Do you presently have visiting nurse or other home services: No Alcohol intake: never Patient Tobacco Use Status: Current everyday Tobacco user Tobacco use type: Smokeless Tobacco Smoked in Last 30 Days: No e-Cigarette/Vaping Use: Currently Using Use of substances other than those prescribed or required for medical reasons: Yes Substance Use Type: Marijuana Substance Use Frequency: Daily Have you been hit, kicked, punched, or otherwise hurt by someone within the past year? 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 Current occupational exposures/hazards: No Cognitive needs: No Hearing needs: No Vision needs: Yes (glasses) Meds Allergies Allergy/AdvReac Type Severity Reaction Status Date / Time hydrocodone [From VICODIN] Allergy Mild HIVES Verified 02/02/24 00:41 oxycodone [From PERCOCET] Allergy Mild HIVES Verified 02/02/24 00:41 azithromycin [AZITHROMYCIN] Allergy Unknown NAUSEA & Verified 02/02/24 00:41 VOMITING erythromycin base Allergy Unknown NAUSEA & Verified 02/02/24 00:41 [From ERYTHROCIN] VOMITING Active Medications: Current Medications Acetaminophen (Acetaminophen 325 Mg Tablet) 650 mg PO Q6H PRN PRN Reason: Pain, Mild (Pain Scale 1-3), fever or headache Atorvastatin Calcium (Atorvastatin Calcium 10 Mg Tablet) 10 mg PO BEDTIME [facility] Bupropion HCl (Bupropion Hcl Xl 300 Mg Tab.Er.24h) 300 mg PO DAILY [facility] Calcium Carbonate (Calcium Carbonate 750 Mg Tab.Chew) 750 mg PO Q4H PRN PRN Reason: Heartburn Cyclobenzaprine HCl (Cyclobenzaprine Hcl 5 Mg Tablet) 5 mg PO BEDTIME PRN PRN Reason: prn Fluticasone Propionate (Fluticasone Propionate 100 Mcg Blst.W.Dev) 1 puff INHALE RBID [facility] Glucose (Glucose Gel 15 Gm Gel..Gram.) 15 gm PO Q15M PRN; Protocol PRN Reason: per Hypoglycemia Standing Ord. Dextrose (D10) 250 mls @ 750 mls/hr IV Q15M PRN; Protocol PRN Reason: per Hypoglycemia Standing Ord. Insulin Human Lispro (Insulin Lispro 100 Unit/Ml 3 Ml Vial) 0 unit SUBCUT Q6H [facility]; Protocol Last Admin: 02/02/24 12:09 Dose: Not Given Lisinopril (Lisinopril 5 Mg Tablet) 5 mg PO DAILY [facility]; Protocol Magnesium Hydroxide (Milk Of Magnesia 30 Ml Oral.Susp) 30 ml PO DAILY PRN PRN Reason: Constipation Melatonin (Melatonin 3 Mg Tablet) 6 mg PO BEDTIME PRN PRN Reason: Insomnia Metoprolol Tartrate (Metoprolol Tartrate 25 Mg Tablet) 25 mg PO DAILY [facility]; Protocol Naloxone HCl (Naloxone Hcl 0.4 Mg/Ml Vial) 0.04 mg IVPUSH Q5M PRN PRN Reason: Excessive sedation or RR < 8 Ondansetron HCl (Ondansetron Hcl 4 Mg/2 Ml Vial) 4 mg IVPUSH Q8H PRN PRN Reason: Nausea and Vomiting Pantoprazole Sodium (Pantoprazole Sodium 40 Mg/10 Ml Vial) 40 mg IVPUSH BID@0630,1630 [facility] Last Admin: 02/02/24 06:13 Dose: 40 mg Sodium Chloride (0.9 % Sodium Chloride Flush 3 Ml Syringe) [facility] Last Admin: 02/02/24 06:55 Dose: Not Given Home Medications ?Medication ?Instructions ?Recorded ?Confirmed ?Last Taken ?Type bupropion HCl 300 mg 24 hr tablet, 300 mg PO DAILY 09/08/23 02/02/24 02/01/24 History extended release ibuprofen 200 mg tablet (IBU-200) 400 mg PO Q8H 09/19/23 02/02/24 02/01/24 History cyclobenzaprine 5 mg tablet 5 mg PO BEDTIME PRN prn 02/02/24 02/02/24 Unknown History fluticasone propionate 50 1 spray intranasal BID PRN 02/02/24 02/02/24 Unknown History mcg/actuation nasal allergies spray,suspension lidocaine 5 % topical patch 1 patch topical DAILY PRN Pain 02/02/24 02/02/24 02/01/24 History metoprolol tartrate 25 mg tablet 25 mg PO DAILY 02/02/24 02/02/2401/31/24 History omeprazole 20 mg capsule,delayed 20 mg PO DAILY@0630 02/02/24 02/02/24 02/01/24 History release sumatriptan succinate 100 mg 100 mg PO DAILY PRN migraine 02/02/24 02/02/24 Unknown History tablet (Imitrex) headache Exam Height,Weight and Vital Signs: Height 5 ft 3 in Weight 94.347 kg Last Vital Signs Temp 97.9 F 02/02/24 13:35 Pulse 65 02/02/24 13:35 Resp 14 02/02/24 13:35 BP 138/85 02/02/24 13:35 Pulse Ox 98 02/02/24 13:35 O2 Del Method Room Air 02/02/24 13:35 Pertinent Lab Results Pertinent Lab Results: Laboratory Tests 02/02/24 02/02/24 02/02/24 01:12 01:13 05:05 WBC 8.7 7.1 RBC 4.61 4.12 L Hgb 14.0 12.4 Hct 39.4 35.3 L MCV 85.5 85.7 MCH 30.4 30.1 MCHC 35.5 H 35.1 H RDW 13.0 13.1 Plt Count 277 210 MPV 9.4 9.2 L Immature Gran % (Auto) 0.7 H 0.7 H Neut % (Auto) 65.0 69.0 Lymph % (Auto) 23.7 21.8 [place] % (Auto) 8.0 6.9 Eos % (Auto) 2.4 1.5 Baso % (Auto) 0.2 0.1 Lymph # (Auto) 2.1 1.6 [place] # (Auto) 0.7 0.5 Eos # (Auto) 0.2 0.1 Baso # (Auto) 0.0 0.0 Abs Immat Gran (auto) 0.06 H 0.05 H Absolute Neuts (auto) 5.7 4.9 Absolute Nucleated RBC 0.000 0.000 Nucleated RBC % (auto) 0.0 0.0 PT 11.6 INR 1.0 Sodium 137 Potassium 4.5 Chloride 103 Carbon Dioxide 24 Anion Gap 15 BUN 16 Creatinine 0.87 Estim Creat Clear Calc 92.0 Estimated GFR > 60 POC Glucose Random Glucose 114 Calcium 9.4 Total Bilirubin 0.3 Direct Bilirubin < 0.1 AST 65 H ALT 46 H Alkaline Phosphatase 121 H Total Protein 7.8 Albumin 4.0 Lipase 59 Urine Color Yellow Urine Appearance Cloudy Urine pH 5.5 Ur Specific [place] 1.015 Urine Protein Trace Urine Glucose (UA) Negative Urine Ketones Negative Urine Blood Negative Urine Nitrite Negative Ur Leukocyte Esterase Negative Stool Occult Blood POSITIVE 02/02/24 02/02/24 06:08 12:00 WBC RBC Hgb Hct MCV MCH MCHC RDW Plt Count MPV Immature Gran % (Auto) Neut % (Auto) Lymph % (Auto) [place] % (Auto) Eos % (Auto) Baso % (Auto) Lymph # (Auto) [place] # (Auto) Eos # (Auto) Baso # (Auto) Abs Immat Gran (auto) Absolute Neuts (auto) Absolute Nucleated RBC Nucleated RBC % (auto) PT INR Sodium Potassium Chloride Carbon Dioxide Anion Gap BUN Creatinine Estim Creat Clear Calc Estimated GFR POC Glucose 140 H 117 H Random Glucose Calcium Total Bilirubin Direct Bilirubin AST ALT Alkaline Phosphatase Total Protein Albumin Lipase Urine Color Urine Appearance Urine pH Ur Specific [place] Urine Protein Urine Glucose (UA) Urine Ketones Urine Blood Urine Nitrite Ur Leukocyte Esterase Stool Occult Blood Airway Mallampati Class: II TM Dist: >3cm Neck ROM: Full Denture: Upper and Lower Heart: rrr Lungs: cta Assessment and Plan Assessment Anesthesia Assessment: Anesthesia Plan Discussed and Chart Reviewed Final Anesthetic Review Family History of Problems with Anesthesia: No History of Problems with Anesthesia: No NPO: Yes ASA Class: III Final Preanesthetic Review: No Changes in Pt Med Stat, Meds/Allgs Chart Reviewed and Consent Obtained/Reviewed Patient Risk: Intermediate Procedure Risk: Intermediate Anesthetic Plan Anesthetic Plan: MAC: Disposition: Standard PACU
[2024-02-02] MEDS: Lactated Ringers 1,000 ML 50 ML IVCONT (13:49)
[2024-02-02 13:55] LABS: Glucose, Whole Blood 113 mg/dL (60-115)
--- NOTE | 2024-02-02 14:15 | W.PM.OPN ---
Operative Note Operative Note Date of Service: 02/02/24 Narrative: FLEXIBLE TRANSORAL UPPER GASTROINTESTINAL ENDOSCOPY WITH BIOPSIES AND SNARE POLYPECTOMY OF GASTRIC POLYP Pre-op diagnosis: Abdominal pain, black stools Post-op diagnosis: GERD, Gastritic erosion, gastric polyp Endoscopist:? Yuri Dominguez MD Anesthesia:?MAC UPPER ENDOSCOPY Consent: Indications for the procedure and potential complications of bleeding, perforation, reaction to medications and missed diagnosis were discussed with the patient and informed consent was obtained. Instrument: Olympus GIF H 190 mid size upper endoscope Monitoring: Vital signs and clinical assessment, continuous EKG monitoring, Pulse oximetry, Carbon Dioxide monitoring and blood pressure monitoring were done throughout the procedure. Procedure: The patient was placed in the left lateral decubitis position and pre-procedure medications were administered and a bite block was placed. The endoscope was inserted into the mouth and advanced under direct vision to the third part of duodenum. A careful inspection was made as the upper endoscope was withdrawn including a retroflexed examination of the proximal stomach; Findings and interventions are described below. Findings: Larynx: Normal Esophagus: GE junction at 40 cms, no esophagitis. Irregular Z line - biopsies were obtained to check for Barretts esophagus Stomach: A 3-4 mm benign appearing polyp in the gastric body along the lesser curve - removed with a cold snare. Moderate diffuse gastric erythema - biopsies were obtained from the gastric body and antrum. A 2 cms superficial non-bleeding erosion in the pre-pyloric area - biopsies were obtained. Grade 2 flap valve on retroflexed examination of the cardia. Duodenum: Normal bulb and descending duodenum. Biopsies were obtained from 3rd part of the duodenum to check for celiac sprue Intervention: Biopsies as noted above Impression and Post Procedure Diagnosis: Endoscopy Findings: ESOPHAGUS: Irregular Z line - biopsies were obtained to check for Barretts esophagus STOMACH: Small gastric polyp - removed with a snare. Diffuse gastritis and benign appearing gastric erosion. DUODENUM: Normal - biopsied to check for celiac sprue No blood or potential source of bleeding noted in the UGI tract during EGD Plan: Continue IV PPI today and switch to PO PPI twice daily tomorrow. Start a full liquid diet today and advance diet as tolerated. Check repeat CBC in the am and if stable, pt can be discharged home Pt is scheduled for an EGD and colonoscopy on 02/15/24 as an outpatient with Dr Joe Stearns findings were reviewed with the patient and relevant handouts were given and the discharge area. BIOPSIES SHOWED: A. Small bowel, biopsy: Small intestinal mucosa within normal limits. B. Stomach, antrum, biopsy: Antral-type mucosa within normal limits; no Helicobacter organisms seen. C. Stomach, erosion, biopsy: Antral-type mucosa with mild chronic inactive inflammation and regenerative changes; no Helicobacter organisms seen. D. Stomach, polypectomy: Hyperplastic mucosal polyp with background mild chronic inactive inflammation; no Helicobacter organisms seen. E. Stomach, body, biopsy: Oxyntic mucosa within normal limits; no Helicobacter organisms seen. F. EG junction, biopsy: - Cardiofundic-type mucosa with mild chronic inactive inflammation; no intestinal metaplasia seen. - No squamous epithelium identified Letter sent to the patient with biopsy results advising repeat EGD in 3 years for FU of hyperplastic gastric polyp.
[2024-02-02] MEDS: 0.9 % Sodium Chloride Flush 3 ML SYRINGE IVFLUSH (15:07)
[2024-02-02 17:53] LABS: Glucose, Whole Blood 133 mg/dL (60-115)
[2024-02-02] MEDS: Atorvastatin Calcium 10 MG TABLET PO (20:27)
[2024-02-02 23:38] LABS: Glucose, Whole Blood 109 mg/dL (60-115)
[2024-02-02] MEDS: Gabapentin 100 MG CAPSULE PO (23:42)
--- NOTE | 2024-02-03 00:18 | PC.NURSE ---
patient requested gabapentin as she says she takes 100mg capsule at home for restless legs. Dr. Kumar notified and order gabapentin 100mg 1x dose .
[2024-02-03] MEDS: 0.9 % Sodium Chloride Flush 3 ML SYRINGE IVFLUSH (00:45)
[2024-02-03 03:27] VITALS: BP 143/84; PULSE 75; RESP 16; TEMP 36.3; O2SAT 97
[2024-02-03 06:00] LABS: Glucose, Whole Blood 117 mg/dL (60-115)
[2024-02-03] MEDS: Pantoprazole Sodium 40 MG/10 ML VIAL IVPUSH (06:19)
[2024-02-03 06:26] LABS: Hematocrit 38.6 % (37.0-47.0); Hemoglobin 13.5 g/dl (12.0-16.0); Mean Corpuscular Hemoglobin 30.3 pg (27.0-33.0); Mean Corpuscular Volume 86.5 fL (80.0-98.0); Platelet Count 231 X10*3/uL (160-400); Red Blood Count 4.46 X10*6/uL (4.20-5.50); White Blood Count 8.4 X10*3/uL (4.8-10.8)
[2024-02-03 06:44] LABS: Anion Gap 11 (12-20); Blood Urea Nitrogen 9 mg/dL (9-16); Carbon Dioxide 26 mmol/L (22-29); Chloride 106 mmol/L (96-108); Creatinine Clr Calc Pharmacy 106.7; Estimated Glomerular Filt Rate > 60; Glucose Fasting 128 mg/dL (60-99); Potassium 3.9 mmol/L (3.3-5.1); Sodium 139 mmol/L (135-145)
[2024-02-03 08:00] VITALS: BP 155/92; PULSE 79; RESP 16; TEMP 36.2; O2SAT 96
[2024-02-03] MEDS: lisinopriL 5 MG TABLET PO (08:44)
[2024-02-03] MEDS: buPROPion HCl XL 300 MG TAB.ER.24H PO (08:44)
[2024-02-03] MEDS: Metoprolol Tartrate 25 MG TABLET PO (08:44)
[2024-02-03] MEDS: polyethylene glycoL 3350 17 GM POWD.PACK PO (08:44)
--- NOTE | 2024-02-03 08:54 | MHC.CM.PN ---
Addendum entered by Patt De Leon RN 02/03/24 09:15: Patient medically cleared for dc home self care. Original Note: PANCHAL delivered. Patient lives in an apartment w/ and children. Functionally independent. Has CPAP, supplies via [facility]. No services. PCP Minerva Zuleta Reports she has an HCP naming her , Silas, as [facility]. Copy requested. DP: Home self care. will transport. CM will continue to follow.
--- NOTE | 2024-02-03 09:01 | PM.DS ---
DS: Providers Provider Date of Service: 02/03/24 Date of admission: 02/02/24 05:43 Date of discharge: 02/03/24 Primary care physician: DEBRA TravisP- Consults: 02/02/24 05:45 Consult to Gastroenterology Routine Consulting Provider: Yuri Dominguez Reason for consultation: ?acute GI bleed DS: Diagnosis Discharge Diagnosis (1) GI bleed: Status: Acute (2) Abdominal pain: Status: Acute (3) Black tarry stools: Status: Acute DS: Summary Hospital Course Hospital Course: from initial hpi: 43-year-old female with pertinent history of migraine, [id number] diabetes mellitus type 2, mood disorder, mixed hyperlipidemia, essential hypertension, restless leg syndrome who presents to the emergency department for evaluation of abdominal pain and black stools. Patient states she has been having blood in stool for many years. Patient saw gastroenterology outpatient and was scheduled for a colonoscopy in 2 months. She does have external hemorrhoids. Initially she said patient 1st noticed black stool on the day of presentation but later said she has been having black stools for a while. Had loose stools 2 days prior to presentation but she has been taking cidg-bco-lrucabt laxatives. Only 1 episode of well formed bowel movement on the day of presentation. Also has been having generalized abdominal discomfort which has been ongoing for a while. Complaining of fatigue, generalized body ache, headache. No fever, chills, chest discomfort, palpitations, shortness of breath, changes in urinary habits. In the emergency department, stool occult blood noted to be positive. Hemoglobin stable. Patient given IV fluids and IV Protonix. hospital course: patient was admitted for melena, hemoglobin remained stable and she did not require transfusion. Was treated with IV PPI underwent EGD which showed gastritis and recommendations were to increase omeprazole to b.i.d. and follow-up with Gastroenterology as outpatient. For hypertension was continued on metoprolol. For diabetes was put on insulin sliding scale. For mood disorder was continued on bupropion for obesity/suspected NAFLD weight loss is recommended. For patient's chronic back pain that has not been responsive to physical therapy will refer for outpatient MRI of the lumbosacral spine. Time Attestation Discharge Coordination Time (in mins): 37 Quality: Safe Use of Opioids Does Pt have an Active Cancer Diagnosis on the Problem List?: No Quality: Stroke Does the patient have a stroke diagnosis?: No Physical Exam Vital Signs: Vital Signs: Last Vital Signs Temp 97.1 F 02/03/24 08:00 Pulse 79 02/03/24 08:00 Resp 16 02/03/24 08:00 BP 155/92 H 02/03/24 08:00 Pulse Ox 96 02/03/24 08:00 O2 Del Method Room Air 02/03/24 08:00 BMI result Body Mass Index 36.8 General: AO X 3, no acute distress Resp: CTA bilateral, no accessory muscles used CVS: S1,S2,RRR GI: soft, non tender, non distended Neuro: motor grossly intact, alert Psych: appropriate affect, appropriate insight DS: Data Data Completed and Pending Pending studies at discharge: Pending at discharge 02/02/24 14:03 Surgical [PTH] Routine Labs on day of discharge: Laboratory Results - last 24 hr 02/02/24 02/02/24 02/02/24 12:00 13:47 17:50 WBC RBC Hgb Hct MCV MCH MCHC RDW Plt Count MPV Absolute Nucleated RBC Nucleated RBC % (auto) Sodium Potassium Chloride Carbon Dioxide Anion Gap BUN Creatinine Estim Creat Clear Calc Estimated GFR POC Glucose 117 H 113 133 H Fasting Glucose Calcium 02/02/24 02/03/24 02/03/24 23:32 05:54 06:17 WBC 8.4 RBC 4.46 Hgb 13.5 Hct 38.6 MCV 86.5 MCH 30.3 MCHC 35.0 RDW 13.0 Plt Count 231 MPV 9.0 L Absolute Nucleated RBC 0.000 Nucleated RBC % (auto) 0.0 Sodium 139 Potassium 3.9 Chloride 106 Carbon Dioxide 26 Anion Gap 11 L BUN 9 Creatinine 0.75 Estim Creat Clear Calc 106.7 Estimated GFR > 60 POC Glucose 109 117 H Fasting Glucose 128 H Calcium 9.0 Discharge Plan Discharge Anticipated Discharge Date/Time: 02/03/24 08:58 Patient Disposition: Home, Self-Care Discharge Diagnosis: melena Referrals: Yuri Dominguez MD [Physician] - 1 Week Minerva Zuleta FNP-BC [Primary Care Provider] - 1 Week Discharge Medications: New omeprazole 40 mg capsule,delayed release(DR/EC) 40 mg PO BID Qty: 180 0RF Continued lisinopril 5 mg tablet 5 mg PO DAILY Qty: 90 0RF metformin 750 mg tablet extended release 24 hr 750 mg PO BID Qty: 180 0RF Arnuity Ellipta 100 mcg/actuation blister with device 1 inh inhalation DAILY Qty: 30 6RF (DME) blood-glucose meter [FreeStyle [place] Lite] Kit See Rx Instructions .ROUTE .MEDSUPPLY Qty: 1 0RF Rx Instructions: As directed (DME) FreeStyle Lite Strips Strip See Rx Instructions .ROUTE .MEDSUPPLY Qty: 100 0RF Rx Instructions: As directed (DME) lancets [FreeStyle Lancets] 28 gauge misc See Rx Instructions .ROUTE .MEDSUPPLY Qty: 100 0RF Rx Instructions: As directed sumatriptan succinate [Imitrex] 100 mg tablet 100 mg PO DAILY PRN (Reason: migraine headache) Rx Instructions: 100 mg orally PRN; lidocaine 5 % adhesive patch,medicated 1 patch topical DAILY PRN (Reason: Pain) Rx Instructions: leave on most painful area for up to 12 hrs fluticasone propionate 50 mcg/actuation spray,suspension 1 spray intranasal BID PRN (Reason: allergies) Rx Instructions: administer into each nostril cyclobenzaprine 5 mg tablet 5 mg PO BEDTIME MDD muscle spasms PRN (Reason: prn) metoprolol tartrate 25 mg tablet 25 mg PO DAILY acetaminophen [Tylenol Extra Strength] 500 mg tablet 1,000 mg PO Q8H PRN (Reason: back pain) Qty: 60 0RF bupropion HCl 300 mg tablet extended release 24 hr 300 mg PO DAILY atorvastatin 10 mg tablet 10 mg PO BEDTIME Qty: 90 0RF albuterol sulfate 90 mcg/actuation HFA aerosol inhaler 2 puff inhalation Q4-6H PRN (Reason: shortness of breath or wheezing) Qty: 1 3RF ondansetron 4 mg tablet,disintegrating 4 mg PO Q8H PRN (Reason: nausea and vomiting) 5 Days Qty: 15 12RF gabapentin 100 mg capsule 100 - 400 mg PO BEDTIME 30 Days Qty: 90 3RF Discontinued omeprazole 20 mg capsule,delayed release(DR/EC) 20 mg PO DAILY@0630 ibuprofen [IBU-200] 200 mg tablet 400 mg PO Q8H Discharge Orders: Discharge Order (Routine); Ordered 02/03/24 Ordered By: Alessandro Monreal Diet: Advance to usual diet Activity on Discharge: As tolerated Stand Alone Forms: Patient Portal Discharge page Print Language: Maltese Other Ambulatory Orders: MR lumbar spine wo con (Routine) Timeframe: 1 Day Facility: [facility] - Location: MRI Ordered By: Alessandro Monreal Care Plan Goals: recovery Health Concerns: back pain, gastritis Plan of Treatment: increase omeprazole to 40mg bid, follow up with GI MR sacral lumbar spine, follow up results with PCP Assessment: see above
--- NOTE | 2024-02-03 14:52 | HO.POSTANES ---
Post Anesthesia Evaluation Post Anesthesia Evaluation Date of Service: 02/03/24 Vital Signs: Vital Signs Temp Pulse Resp BP Pulse Ox O2 Del Method 02/03/24 08:00 97.1 F 79 16 155/92 H 96 Room Air 02/03/24 03:27 97.4 F 75 16 143/84 H 97 Room Air Anesthesia: TIVA Mental Status: Awake Pain Control: Satisfactory Nausea/Vomiting: None Hydration: Adequate Anesthesia-Related Issues: No Anes. Related Issues
== END 2024-02-03 11:17 | disposition home or self-care (01) ==
LOC: HO.ED 05:52 → HO.EDOVER 06:19 → HO.S3 09:20
PROVIDERS: Internal Medicine Gastroenterology; Admitting Provider Student in an Organized Health Care Education/Training Program; Emergency Provider Emergency Medicine; PCP Nurse Practitioner Family; Visit Provider Internal Medicine
PROC: 0DJ08ZZ Inspection of Upper Intestinal Tract, Via Natural or Artificial Opening Endoscopic (ICD-10-PCS; CPT 43235; principal; 2024-02-02 12:50)
DX: K92.1 Melena (principal); K31.7 Polyp of stomach and duodenum; K25.9 Gastric ulcer, unspecified as acute or chronic, without hemorrhage or perforation; M54.50 Low back pain, unspecified; R10.9 Unspecified abdominal pain; R53.1 Weakness; E11.9 Type 2 diabetes mellitus without complications; E78.2 Mixed hyperlipidemia; F39 Unspecified mood [affective] disorder; I10 Essential (primary) hypertension; K57.90 Diverticulosis of intestine, part unspecified, without perforation or abscess without bleeding; N20.0 Calculus of kidney; K76.0 Fatty (change of) liver, not elsewhere classified; Z79.899 Other long term (current) drug therapy
CPT/HCPCS: 43251; 36415; 74176; 80048; 80076; 81003; 82272; 82947; 83690; 85025; 85027; 85610; 88305; 88313; 88342; 93005; 96361; 96374; 96375; 96376; 99221; 99285; J1885; J2003; J2270; J2405; J2470; J2704; J7120

== ENCOUNTER → 2024-02-02 00:41 | Outpatient (BNV) | payer OTHER, SELFPAY | PROVIDERS: Admitting Provider Student in an Organized Health Care Education/Training Program; Emergency Provider Emergency Medicine; PCP Nurse Practitioner Family; Visit Provider Internal Medicine Cardiovascular Disease | DX: R94.31 Abnormal electrocardiogram [ECG] [EKG] (principal) | CPT/HCPCS: 93010 ==

== ENCOUNTER → 2024-02-02 00:58 | Outpatient (BNV) | payer OTHER, SELFPAY | PROVIDERS: Emergency Provider Emergency Medicine; Visit Provider Student in an Organized Health Care Education/Training Program | DX: K92.2 Gastrointestinal hemorrhage, unspecified (principal); R10.9 Unspecified abdominal pain; K92.1 Melena | CPT/HCPCS: 99223; 99239; 99499 ==

== ENCOUNTER → 2024-02-02 05:43 | Outpatient (BNV) | payer OTHER, SELFPAY | PROVIDERS: Admitting Provider Student in an Organized Health Care Education/Training Program; Emergency Provider Emergency Medicine; PCP Nurse Practitioner Family; Visit Provider Internal Medicine Gastroenterology | DX: K92.2 Gastrointestinal hemorrhage, unspecified (principal); R10.9 Unspecified abdominal pain; K92.1 Melena; K31.7 Polyp of stomach and duodenum; K21.9 Gastro-esophageal reflux disease without esophagitis | CPT/HCPCS: 43239; 43251; 99222 ==

== ENCOUNTER 2024-02-13 10:17 | Outpatient (AMB) | payer OTHER, SELFPAY ==
--- NOTE | 2024-02-13 10:18 | A.OFFPC_ITS ---
Vital Signs 02/13/24 10:25 02/13/24 10:45 Height 5 ft 3 in Weight 212 lb 2 oz BMI 37.6 BP 142/78 H 124/76 Blood Pressure Location Rt brachial Lt brachial Position Sitting Sitting Respiration 14 Pulse 66 Pulse Source Pulse Oximeter Pulse Oximetry (%) 99 Oxygen Delivery Method Room Air Intake Visit Reasons: Hos Dis FU (change pcp) Intake Note: hospital discharge follow up Room Service Waiter Required: No Allergies hydrocodone [From VICODIN] Allergy (Mild, Verified 02/13/24 10:33) HIVES oxycodone [From PERCOCET] Allergy (Mild, Verified 02/13/24 10:33) HIVES azithromycin [AZITHROMYCIN] Allergy (Unknown, Verified 02/13/24 10:33) NAUSEA & VOMITING erythromycin base [From ERYTHROCIN] Allergy (Unknown, Verified 02/13/24 10:33) NAUSEA & VOMITING Medication List - Last Reconciled 02/13/24 by Minerva Zuleta, RELAY MAN- acetaminophen (Tylenol Extra Strength) 1,000 mg (2 x 500 mg) PO Q8H PRN albuterol sulfate 90 mcg/actuation 2 puffs inhalation Q4-6H PRN atorvastatin 10 mg PO BEDTIME blood sugar diagnostic (FreeStyle Lite Strips) As directed blood-glucose meter (FreeStyle [place] Lite kit) As directed bupropion HCl XL 300 mg PO DAILY cyclobenzaprine 5 mg PO BEDTIME PRN MDD muscle spasms fluticasone furoate 100 mcg/actuation (Arnuity Ellipta) 1 inh inhalation DAILY fluticasone propionate 50 mcg/actuation 1 spray intranasal BID PRN gabapentin 100 - 400 mg (1 - 4 x 100 mg) PO BEDTIME 30 days lancets (FreeStyle Lancets) As directed lidocaine 5% 1 patch topical DAILY PRN lisinopril 5 mg PO DAILY metformin ER 750 mg PO BID metoprolol tartrate 25 mg PO DAILY omeprazole 40 mg PO BID ondansetron 4 mg PO Q8H PRN 5 days sumatriptan succinate (Imitrex) 100 mg PO DAILY PRN Tobacco use date assessed: 09/08/23 Dental Screening Dental Screen Date: 09/08/23 HPI HPI Comments History of Present Illness Details Here today for a Transitional Care Management Visit Discharge summary reviewed. 43-year-old female with diabetes 2, asth ma, anxiety, MDD, constipation, bipolar 1 disorder, sleep apnea, renal stones, PTSD, lupus, hypertension, fibromyalgia, 3.6 cm hypodense lesion in the liver at the junction of the right and left hepatic lobes with thin rim calcification along the right lateral wall of the lesion, CAD, . Small fat-containing anterior midline hernia , diverticulosis, fatty liver, splenomegaly, osteoarthritis multiple joints, Status post hyster ectomy, hernia repair, admitted for melena, hemoglobin remained stable and she did not require transfusion. Was treated with IV PPI underwent EGD which showed gastritis and recommendations were to increase omeprazole to b.i.d. and follow-up with Gastroenterology as outpatient. For hypertension was continued on metoprolol. For diabetes was put on insulin sliding scale. For mood disorder was continued on bupropion for obesity/suspected NAFLD weight loss is recommended. For patient's chronic back pain that has not been responsive to physical therapy will refer for outpatient MRI of the lumbosacral spine. Admission Date: 02/02/24 Discharge Date: 02/03/24 Hospital: [facility] Date of interactive contact with Nurse Alvaradoor: as documented in chart Pending diagnostic tests/treatments: none Pending consults: none DME: no new PT/OT/MANAGER CAREER: none Home Health Aide/DRAPERY COUNSELOR: none Referrals: Yuri Dominguez MD [Physician] - 1 Week Pt is scheduled for an EGD and colonoscopy on 02/15/24 as an outpatient with Dr Diaz Medications reconciled & updated. New omeprazole 40 mg capsule,delayed release(DR/EC) 40 mg PO BID Qty: 180 0RF Discontinued omeprazole 20 mg capsule,delayed release(DR/EC) 20 mg PO DAILY@0630 ibuprofen [IBU-200] 200 mg tablet 400 mg PO Q8H Since d/c she has only been taking omeprazole 20mg po BID. Did not know she need s to increase to 40mg. Reviewed this w/ her today and sent her in Rx. Not taking NSAIDs. Using marijuana for pain. Has not seen blood in stool or toilet. Has noticed some only when wiping. Using meds and diet to help w/constipation. MRI of Lumbarsacral spine ordered, needs addl info. I have updated order to include sx of pressure in sacrum, parasthesias both legs and trouble walking. Exam: Awake alert NAD scleras nonicteric bilat, no conjunctival pallor MMM RRR LS CTAB Abd soft, nontender, normoactive BS pain over transverse low back and bilat hips w/ palpation and movement Mood and affect appropriate Plan: Omeprazole [address] Diaz as scheduled Avoid NSAIDS Cont all other meds I will fu once MRI L spine done, via phone RTO in May as scheduled sooner prn During todays TCM visit, the d/c summary was reviewed, along with the need for or follow-up on pending diagnostic tests and treatments, as necessary interaction with other health customer care specialist who will assume or reassume care of the beneficiary?s system-specific problems was done or is being worked on, education was provided to the beneficiary, family, guardian, and/or caregiver, referrals to establish or re-establish and arrange needed community resources we completed, assistance in scheduling required follow-up with community providers and services & finally updated medication list given to patient/caregiver [facility] Medical History Periodic limb movements of sleep Anemia Asthma Nephrolithiasis Sleep apnea Migraine Sinusitis Breast pain, left Hypertension Sleep apnea Bipolar 1 disorder Depression Anxiety delivery delivered Diabetes Sciatica Kidney infection Kidney stones HTN (hypertension) Fibromyalgia Lupus Surgical History H/O section H/O: hysterectomy Family History Maternal Grandmother HTN (hypertension) Diabetes Cancer Other FH: mental illness Substance use Social History Housing: Apartment Are you a primary care aid to a significant other at home: No Do you presently have visiting nurse or other home services: No Alcohol intake: never Patient Tobacco Use Status: Current everyday Tobacco user Tobacco use type: Smokeless Tobacco e-Cigarette/Vaping Use: Currently Using Substance Use Type: Marijuana Advance Directives Date on File: 02/02/24 service: No Current occupational status: employed 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 87176 - PHQ-9 Billing: Patient declined-do not bill Source: Developed by Drs. Rob Parry, Tana Rowley, Gen Mcdonald and colleagues, with an educational ezra from [employer]. Thrive Questionnaire Date Thrive assessed: 02/13/24 I am a: Patient What is your living situation today?: I have a steady place to live Within the past 12 months, did the food you bought not last and you didn't have the money to get more?: Sometimes True Within the past 12 months, did you worry whether your food would run out before you got money to buy more?: Sometimes True Do you have trouble paying for medicines?: No Do you have trouble getting transportation to medical appointments?: No Do you have trouble paying your heating and electricity bill?: Yes Do you have trouble taking care of your child, family member or friend?: No Do you have trouble with day-to-day activities such as bathing, preparing meals, shopping, managing finances, etc.?: No Are you currently unemployed and looking for a job?: No Are you interested in more education?: No Please select the resources that you would like help with: None Currently or been in a relationship where the following occur: No concerns reported THRIVE Score: 3 AUDIT C Alcohol Use Questionnaire (AUDIT-C) 1. How often do you have a drink containing alcohol?: Monthly or less 2. How many drinks containing alcohol do you have on a typical day when you are drinking?: 1 or 2 3. How often do you have six or more drinks on one occasion?: Never Total Score: 1 JONATHON-7 AMB Questionnaire JONATHON-7 Date JONATHON - 7 assessed: 02/13/24 Feeling nervous, anxious, or on edge: 2 = More than half the days Not being able to stop or control worryin = More than half the days Worrying too much about different things: 2 = More than half the days Trouble relaxin = More than half the days Being so restless that it is hard to sit still: 2 = More than half the days Becoming easily annoyed or irritable: 2 = More than half the days Feeling afraid as if something awful might happen: 2 = More than half the days Total JONATHON-7 score (0-4 normal; 5-9 mild; 10-14 moderate; 15-21 severe): 14 Source: Developed by Drs. Rob Parry, Tana Rowley, Gen Mcdonald and colleagues, with an educational ezra from [employer]. JONATHON-7 Assessment Billing JONATHON-7 Assessment Tool: JONATHON-7 Assessment 27993 Physical exam (Primary Care) Vital Signs: Last Vital Signs Pulse 66 02/13/24 10:25 Resp 14 02/13/24 10:25 BP 142/78 H 02/13/24 10:25 Pulse Ox 99 02/13/24 10:25 Oxygen Delivery Method Room Air 02/13/24 10:25 BMI result Body Mass Index 37.6 Tobacco/Smoking Status: Tobacco use Status Tobacco use date assessed 09/08/23 02/13/24 10:19 Patient Tobacco Use Status Current everyday Tobacco 02/13/24 10:19 Tobacco use type Smokeless Tobacco 02/13/24 10:19 e-Cigarette/Vaping Use Currently Using 02/13/24 10:19 Thrive Assessment: Date of Thrive Assessment Date Thrive assessed 02/13/24 02/13/24 10:19 Currently or been in a relationship where the following occur: No concerns reported Results Reviewed Results Reviewed: [place] [id number] CT Scan Report Signed Patient: Linda Martinez MR#: [id number] : 1980 Acct:[id number] Age/Sex: 43 / F ADM Date: 02/02/24 Loc: .ED Attending Dr: Ordering Physician: Miriam Ovalle MD Date of Service: 02/02/24 Procedure(s): CT abdomen pelvis wo IV con Accession Number(s): [id number] cc: Miriam Ovalle MD; Physician,Unknown ~ EXAMINATION: CT ABDOMEN AND PELVIS WITHOUT CONTRAST CLINICAL INFORMATION: Abdominal pain. Rectal bleeding. COMPARISON: January 25, 2024 TECHNIQUE: Multidetector volumetric imaging was performed from the superior aspect of the liver through the pubic symphysis. Sagittal and coronal reformatted images were obtained on the technologist's workstation. This CT examination was performed using dose optimization techniques as appropriate, variously including the following: *Automated exposure control *Adjustment of mA and/or kV according to patient size (this includes techniques or standardized protocols for targeted exams where dose is matched to indication/reason for exam; i.e. extremities or head) *Use of iterative reconstruction technique DLP: 742 mGy-cm FINDINGS: LUNG BASES: The visualized lung bases are unremarkable. LIVER, GALLBLADDER, AND BILIARY TREE: The liver is of heterogeneous diminished attenuation. There is a stable nonspecific peripherally calcific structure measuring 4 cm at the dome of the liver. There is no intrahepatic biliary duct dilatation. The gallbladder is unremarkable with no evidence of radiopaque gallstones, gallbladder wall thickening, or obvious pericholecystic inflammatory changes. PANCREAS: Unremarkable. SPLEEN: Unremarkable. ADRENAL GLANDS: Unremarkable. KIDNEYS AND URETERS: The kidneys are normal in size, shape, and attenuation. There are scattered left renal calculi measuring up to 2 mm. There is no hydronephrosis. BLADDER: Unremarkable. GASTROINTESTINAL TRACT: There are diverticula of the transverse, descending and proximal sigmoid colon without diverticulitis. The appendix is visualized and is within normal limits. ABDOMINAL WALL: Hernia repair mesh is noted. No significant hernia is appreciated. LYMPH NODES: There are stable nonspecific retroperitoneal lymph nodes measuring up to 1.7 cm. VASCULAR: There is mild atherosclerotic plaque of the abdominal aorta. PELVIC VISCERA: Unremarkable. OSSEOUS STRUCTURES: Unremarkable. CT/CT abdomen pelvis wo IV con IMPRESSION: 1. Diverticulosis without diverticulitis. 2. Nonobstructing left renal calculi. 3. Hepatic steatosis. 4. Stable nonspecific peripherally calcific structure at the dome of the liver. 5. Stable nonspecific retroperitoneal lymph nodes measuring up to 1.7 cm. Fleischner guidelines were followed. Electronically signed by: Jesus Coleman MD 02/02/2024 02:43 AM EDT Dictated By: Jesus Coleman MD Signed By: <Electronically signed by Jesus Coleman MD in OV> 02/02/24 0243 DD/ 0042 TD/TT: 02/02/24 0111 Supervisor Area: Coding Level of Care Code TCM High MDM <= 14 days Complex EM visit Add On G2211 Diagnoses Hospital discharge follow-up Z09 Paresthesia of bilateral legs R20.2 Altered gait R26.9 Gastrointestinal hemorrhage associated with chronic gastritis K29.51 GI bleed type/associated pathology: gastritis Gastritis type: chronic gastritis Hypertension due to endocrine disorder I15.2 Hypertension type: secondary to endocrine disorders Additional Codes JONATHON-7 Assessment Billing - JONATHON-7 Assessment Tool: JONATHON-7 Assessment [id number] ([id number]) Assessment & Plan Assessment & Plan (1) Hospital discharge follow-up: Code(s): Z09 - Encounter for follow-up examination after completed treatment for conditions other than malignant neoplasm Category: Medical Plan: . (2) Paresthesia of bilateral legs: Code(s): R20.2 - Paresthesia of skin Category: Medical Plan: . (3) Altered gait: Code(s): R26.9 - Unspecified abnormalities of gait and mobility Category: Medical Plan: . (4) GI bleed: Code(s): K92.2 - Gastrointestinal hemorrhage, unspecified Category: Medical Qualifiers: GI bleed type/associated pathology: gastritis Gastritis type: chronic gastritis Qualified Code(s): K29.51 - Unspecified chronic gastritis with bleeding Plan: . (5) HTN (hypertension): Code(s): I10 - Essential (primary) hypertension Category: Medical Qualifiers: Hypertension type: secondary to endocrine disorders Qualified Code(s): I15.2 - Hypertension secondary to endocrine disorders Plan: . Plan . Orders: Orders MR lumbar spine wo con 1 Day M54.50 - Low back pain, unspecified, R20.2 - Paresthesia of skin, R26.9 - Unspecified abnormalities of gait and mobility, Z09 - Encounter for follow-up examination after completed treatment for conditions other than malignant neoplasm Medications: Refilled omeprazole 40 mg PO BID 180 caps 0RF
[2024-02-13 10:25] VITALS: BP 142/78; PULSE 66; RESP 14; O2SAT 99; BMI 37.6
[2024-02-13 10:45] VITALS: BP 124/76
== END 2024-02-13 11:04 | disposition home or self-care (01) ==
PROVIDERS: PCP Nurse Practitioner Family; Visit Provider Nurse Practitioner Family
DX: Z09 Encounter for follow-up examination after completed treatment for conditions other than malignant neoplasm (principal); R20.2 Paresthesia of skin; R26.9 Unspecified abnormalities of gait and mobility; K29.51 Unspecified chronic gastritis with bleeding; I15.2 Hypertension secondary to endocrine disorders

== ENCOUNTER → 2024-02-13 10:17 | Outpatient (BNVA) | payer OTHER, SELFPAY | PROVIDERS: PCP Nurse Practitioner Family; Visit Provider Nurse Practitioner Family | DX: Z09 Encounter for follow-up examination after completed treatment for conditions other than malignant neoplasm (principal); R20.2 Paresthesia of skin; R26.9 Unspecified abnormalities of gait and mobility; K29.51 Unspecified chronic gastritis with bleeding; I15.2 Hypertension secondary to endocrine disorders; E11.9 Type 2 diabetes mellitus without complications | CPT/HCPCS: 96127; 99495 ==

== ENCOUNTER 2024-02-15 08:07 | Day surgery (SDC) | payer OTHER, SELFPAY ==
--- NOTE | 2024-02-14 08:21 | P.CONAN_ITS ---
Documented by User: Teresa Joshi NP 02/14/24 08:25 HPI - Anesthesia Eval Consult details Narrative: 43yo F for Colonoscopy s/p EGD 01/2024 with [facility] during [facility] admit hospital course: patient was admitted for melena, hemoglobin remained stable and she did not require transfusion. Was treated with IV PPI underwent EGD which showed gastritis and recommendations were to increase omeprazole to b.i.d. and follow- up with Gastroenterology as outpatient. For hypertension was continued on metoprolol. For diabetes was put on insulin sliding scale. For mood disorder was continued on bupropion for obesity/suspected NAFLD weight loss is recommended. For patient's chronic back pain that has not been responsive to physical therapy will refer for outpatient MRI of the lumbosacral spine. [facility] Active Problems Active Problems: All Active Problems Altered gait (Acute) Paresthesia of bilateral legs (Acute) Hospital discharge follow-up (Acute) GI bleed (Acute) Abdominal pain (Acute) Dysphagia (Acute) Migraine headache without aura (Acute) Obstructive sleep apnea (Acute) Leg cramps (Acute) Anemia (Acute) Low vitamin B12 level (Acute) Asthma (Acute) Right ankle instability (Acute) Cervical cancer screening (Acute) Abnormal mammogram of right breast (Acute) Change in bowel habit (Acute) Bilateral primary osteoarthritis of hip (Acute) Sacroiliac joint pain (Acute) Greater trochanteric bursitis of both hips (Acute) Bilateral hip pain (Acute) Restless leg syndrome (Acute) Parasomnia (Acute) Excessive daytime sleepiness (Acute) Nocturnal dyspnea (Acute) Obesity with serious comorbidity (Acute) Seasonal allergies (Acute) CAD (coronary artery disease) (Acute) DM type 2 causing complication (Acute) IGNACIO on CPAP (Acute) Menopause (Acute) Encounter for screening involving social determinants of health (SDoH) (Acute) Mild intermittent asthma in adult without complication (Acute) JONATHON (generalized anxiety disorder) (Acute) MDD (major depressive disorder), recurrent episode (Acute) Hemorrhoid (Acute) Lumbar pain (Acute) Chronic constipation (Acute) Bipolar 1 disorder (Acute) Hernia (Acute) PTSD (post-traumatic stress disorder) (Acute) Lupus (Acute) HTN (hypertension) (Acute) Fibromyalgia (Acute) Past Medical History Medical History Periodic limb movements of sleep Anemia Asthma Nephrolithiasis Sleep apnea Migraine Sinusitis Breast pain, left Hypertension Sleep apnea Bipolar 1 disorder Depression Anxiety delivery delivered Diabetes Sciatica Kidney infection Kidney stones HTN (hypertension) Fibromyalgia Lupus Family History Family History Maternal Grandmother HTN (hypertension) Diabetes Cancer Other FH: mental illness Substance use Family history of problems with anesthesia: No Surgical History Surgical History H/O section H/O: hysterectomy History of Problems with Anesthesia: No Social History Social History Housing: Apartment Are you a primary nanny caregiver to a significant other at home: No Do you presently have visiting nurse or other home services: No Alcohol intake: never Patient Tobacco Use Status: Current everyday Tobacco user Tobacco use type: Smokeless Tobacco e-Cigarette/Vaping Use: Currently Using Substance Use Type: Marijuana Have you been hit, kicked, punched, or otherwise hurt by someone within the past year? 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 Current occupational exposures/hazards: No Cognitive needs: No Hearing needs: No Vision needs: Yes (glasses) Meds Allergies Allergy/AdvReac Type Severity Reaction Status Date / Time hydrocodone [From VICODIN] Allergy Mild HIVES Verified 02/13/24 10:33 oxycodone [From PERCOCET] Allergy Mild HIVES Verified 02/13/24 10:33 azithromycin [AZITHROMYCIN] Allergy Unknown NAUSEA & Verified 02/13/24 10:33 VOMITING erythromycin base Allergy Unknown NAUSEA & Verified 02/13/24 10:33 [From ERYTHROCIN] VOMITING Home Medications ?Medication ?Instructions ?Recorded ?Confirmed ?Last Taken ?Type bupropion HCl 300 mg 24 hr tablet, 300 mg PO DAILY 09/08/23 02/13/24 02/01/24 History extended release cyclobenzaprine 5 mg tablet 5 mg PO BEDTIME PRN prn 02/02/24 02/13/24 Unknown History fluticasone propionate 50 1 spray intranasal BID PRN 02/02/24 02/13/24 Unknown History mcg/actuation nasal allergies spray,suspension lidocaine 5 % topical patch 1 patch topical DAILY PRN Pain 02/02/24 02/13/24 02/01/24 History metoprolol tartrate 25 mg tablet 25 mg PO DAILY 02/02/24 02/13/24 02/01/24 History sumatriptan succinate 100 mg 100 mg PO DAILY PRN migraine 02/02/24 02/13/24 Unknown History tablet (Imitrex) headache Exam Pertinent Lab Results Pertinent Lab Results: Laboratory Tests 02/03/24 06:17 WBC 8.4 Hgb 13.5 Hct 38.6 Plt Count 231 Sodium 139 Potassium 3.9 Chloride 106 Carbon Dioxide 26 BUN 9 Creatinine 0.75 Narrative Narrative: EKG 01/2024 Vent. Rate : 089 BPM Atrial Rate : 089 BPM P-R Int : 172 ms QRS Dur : 076 ms QT Int : 378 ms P-R-T Axes : 051 023 052 degrees QTc Int : 459 ms Normal sinus rhythm Cannot rule out Anterior infarct , age undetermined Abnormal ECG When compared with ECG of 17-NOV-2023 14:42, No significant change was found Assessment and Plan Assessment Anesthesia Assessment: Chart Reviewed Final Anesthetic Review Family History of Problems with Anesthesia: No History of Problems with Anesthesia: No Documented by User: Chikis Dle Valle MD 02/15/24 08:57 PMFSH Past Medical History Medical History Periodic limb movements of sleep Anemia Asthma Nephrolithiasis Sleep apnea Migraine Sinusitis Breast pain, left Hypertension Sleep apnea Bipolar 1 disorder Depression Anxiety delivery delivered Diabetes Sciatica Kidney infection Kidney stones HTN (hypertension) Fibromyalgia Lupus Family History Family History Maternal Grandmother HTN (hypertension) Diabetes Cancer Other FH: mental illness Substance use Surgical History Surgical History H/O section H/O: hysterectomy Social History Social History Housing: Apartment Are you a primary nanny caregiver to a significant other at home: No Do you presently have visiting nurse or other home services: No Alcohol intake: never Patient Tobacco Use Status: Current everyday Tobacco user Tobacco use type: Smokeless Tobacco e-Cigarette/Vaping Use: Currently Using Substance Use Type: Marijuana Have you been hit, kicked, punched, or otherwise hurt by someone within the past year? 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 Current occupational exposures/hazards: No Cognitive needs: No Hearing needs: No Vision needs: Yes (glasses) Meds Allergies Allergy/AdvReac Type Severity Reaction Status Date / Time hydrocodone [From VICODIN] Allergy Mild HIVES Verified 02/13/24 10:33 oxycodone [From PERCOCET] Allergy Mild HIVES Verified 02/13/24 10:33 azithromycin [AZITHROMYCIN] Allergy Unknown NAUSEA & Verified 02/13/24 10:33 VOMITING erythromycin base Allergy Unknown NAUSEA & Verified 02/13/24 10:33 [From ERYTHROCIN] VOMITING Home Medications ?Medication ?Instructions ?Recorded ?Confirmed ?Last Taken ?Type bupropion HCl 300 mg 24 hr tablet, 300 mg PO DAILY 09/08/23 02/13/24 02/01/24 History extended release cyclobenzaprine 5 mg tablet 5 mg PO BEDTIME PRN prn 02/02/24 02/13/24 Unknown History fluticasone propionate 50 1 spray intranasal BID PRN 02/02/24 02/13/24 Unknown History mcg/actuation nasal allergies spray,suspension lidocaine 5 % topical patch 1 patch topical DAILY PRN Pain 02/02/24 02/13/24 02/01/24 History metoprolol tartrate 25 mg tablet 25 mg PO DAILY 10/25/24 11/05/24 10/24/24 History sumatriptan succinate 100 mg 100 mg PO DAILY PRN migraine 02/02/24 02/13/24 Unknown History tablet (Imitrex) headache Exam Airway Mallampati Class: II TM Dist: >3cm Neck ROM: Full Heart: rrr Lungs: cta Assessment and Plan Assessment Anesthesia Assessment: Anesthesia Plan Discussed Final Anesthetic Review NPO: Yes ASA Class: III Final Preanesthetic Review: No Changes in Pt Med Stat, Meds/Allgs Chart Reviewed and Consent Obtained/Reviewed Patient Risk: Intermediate Procedure Risk: Low Anesthetic Plan Anesthetic Plan: MAC: Disposition: Standard PACU
[2024-02-15 08:10] VITALS: BMI 37.6
[2024-02-15 08:12] VITALS: BP 140/82; PULSE 67; RESP 18; TEMP 36.6; O2SAT 97; BMI 38.0
[2024-02-15 08:29] LABS: Glucose, Whole Blood 134 mg/dL (60-115)
[2024-02-15] MEDS: Lactated Ringers 1,000 ML 100 ML IVCONT (08:44)
--- NOTE | 2024-02-15 09:25 | MHC.SHP ---
Pre-Procedural Eval Section A - 24 Hr Update-Section A only Date of Service: 02/15/24 Section B - Complete if H&P > 30 days Chief Complaint: Rectal bleeding Details of Present Illness: Asthma Sleep apnea Migraine Sinusitis Breast pain, left Hypertension Sleep apnea Bipolar 1 disorder Depression Anxiety delivery delivered Diabetes Sciatica Kidney infection Kidney stones HTN (hypertension) Fibromyalgia Lupus Surgical History H/O section H/O: hysterectomy Family History Maternal Grandmother HTN (hypertension) Diabetes Cancer Other FH: mental illness Substance use Present Medications: see Short Stay Collaborative assessment Allergies: Allergies Allergy/AdvReac Type Severity Reaction Status Date / Time hydrocodone [From VICODIN] Allergy Mild HIVES Verified 02/13/24 10:33 oxycodone [From PERCOCET] Allergy Mild HIVES Verified 02/13/24 10:33 azithromycin [AZITHROMYCIN] Allergy Unknown NAUSEA & Verified 02/13/24 10:33 VOMITING erythromycin base Allergy Unknown NAUSEA & Verified 02/13/24 10:33 [From ERYTHROCIN] VOMITING Review of Systems Review of Systems Comment: Ten point ROS negative Exam Exam Comment: Gen appear: No acute distress HEENT: no icterus Chest: No overt resp distress Abd: soft, nontender, nondistended Psych: Stable affect, answering questions appropriately Neuro: A/Ox3 noted to move all extremities spontaneously Ext: no peripheral edema Plan Diagnosis/Plan: Unchanged I have reviewed the history and physical and performed a pertinent physical examination on my patient. No changes have occurred unless specified. Time Spent With Patient Time: Total time managing care of this patient today ____ minutes.
[2024-02-15 10:11] VITALS: BP 109/62; PULSE 79; RESP 16; TEMP 36.5; O2SAT 96
[2024-02-15 10:25] VITALS: BP 125/78; PULSE 71; RESP 16; TEMP 36.3; O2SAT 96
--- NOTE | 2024-02-15 11:33 | P.OPN-COLO_ITS ---
Colonoscopy Operative Note Operative Note Date of Service: 02/15/24 Narrative: Procedure: Colonoscopy Indication: Rectal bleeding and diarrhea Endoscopist: Briseida Diaz MD Anesthesia Provider: Viridiana Henderson CRNA Anesthesia type: MAC Instrument: Olympus [id number]-H190L Consent: Indication, risks vs benefits, and alternatives were discussed with the patient who gave written informed consent to proceed. EKG, pulse, pulse oximetry and blood pressure were monitored throughout the procedure. Please see anesthesia flowsheet. Procedure: The patient was brought to the procedure room and placed in the left lateral decubitus position. IV medications were administered by the anesthesia provider in attendance. A digital rectal exam was performed which was abnormal due to finding of large external hemorrhoids. A distal attachment cap was affixed to the tip of the colonoscope which was then inserted through the anus and advanced through the colon to the cecum at 75 cm, and terminal ileum. Appendiceal orifice and ileocecal valve were identified. Mucosa was carefully examined under high definition white light as the instrument was slowly withdrawn in a retrograde panoramic fashion. Retroflexion was performed in rectum. The procedure was not difficult. There were no immediate obvious comp lications. The quality of the prep was BBPS: 1+2+2 =inadequate in cecum Withdrawal time 10 minutes. Limitations: Poor prep. Findings: Mucosa: Solid residue in cecal pouch which could not be suctioned. Remaining mucosa normal to the extent visualised. Random cold forceps biopsies were taken from right and left side to r/o microscopic colitis. Protruding lesions: * 1 sessile polyp of size 2 mm in ascending colon. Cold forceps polypectomy was performed. The polyp was completely removed and retrieved. * Medium internal hemorrhoids with stigmata of recent bleeding. Excavated lesions: * Mild diverticulosis of sigmoid colon. Impression: 1. Cecum not visualised but remaining mucosa normal. (biopsy) 2. Total of 1 polyp removed 3. External and internal hemorrhoids with stigmata of recent bleeding Recommendations: - Follow path results. - Repeat colo at 46y.o as today's colo was not adequate for CRC screening - Bleeding likely from bleeding hemorrhoids. Anusol supp Rxed - Avoid constipation and straining
== END 2024-02-15 11:03 | disposition home or self-care (01) ==
PROVIDERS: PCP Nurse Practitioner Family; Visit Provider Internal Medicine
PROC: 0DJD8ZZ Inspection of Lower Intestinal Tract, Via Natural or Artificial Opening Endoscopic (ICD-10-PCS; CPT 45378; principal; 2024-02-15 09:20)
DX: K63.5 Polyp of colon (principal); K57.30 Diverticulosis of large intestine without perforation or abscess without bleeding; K64.8 Other hemorrhoids; K64.4 Residual hemorrhoidal skin tags; R19.4 Change in bowel habit; E11.9 Type 2 diabetes mellitus without complications; I10 Essential (primary) hypertension; E78.2 Mixed hyperlipidemia; J45.909 Unspecified asthma, uncomplicated; D64.9 Anemia, unspecified; M32.9 Systemic lupus erythematosus, unspecified; M79.7 Fibromyalgia; G47.33 Obstructive sleep apnea (adult) (pediatric); Z99.89 Dependence on other enabling machines and devices; Z79.84 Long term (current) use of oral hypoglycemic drugs; Z79.02 Long term (current) use of antithrombotics/antiplatelets; Z79.899 Other long term (current) drug therapy
CPT/HCPCS: 45380; 82947; 88305; J2003; J2704

== ENCOUNTER → 2024-02-15 08:07 | Outpatient (BNV) | payer OTHER, SELFPAY | PROVIDERS: PCP Nurse Practitioner Family; Visit Provider Internal Medicine | DX: K62.5 Hemorrhage of anus and rectum (principal); R19.7 Diarrhea, unspecified; K63.5 Polyp of colon; K57.30 Diverticulosis of large intestine without perforation or abscess without bleeding | CPT/HCPCS: 45380 ==

== ENCOUNTER → 2024-02-19 11:35 | Outpatient (BNVA) | payer OTHER, SELFPAY | PROVIDERS: PCP Nurse Practitioner Family; Visit Provider Obstetrics & Gynecology ==

== ENCOUNTER 2024-02-26 13:16 | Outpatient (REF) | payer OTHER, SELFPAY | END 2024-02-26 13:17 | disposition home or self-care (01) | LOC: HO.US 13:16 | PROVIDERS: PCP Nurse Practitioner Family; Visit Provider Obstetrics & Gynecology | DX: R10.2 Pelvic and perineal pain (principal) | CPT/HCPCS: 76830; 76856 ==

== ENCOUNTER → 2024-02-26 13:18 | Outpatient (BNV) | payer OTHER, SELFPAY | PROVIDERS: PCP Nurse Practitioner Family; Visit Provider Radiology Diagnostic Radiology | DX: N83.202 Unspecified ovarian cyst, left side (principal) | CPT/HCPCS: 76830; 76856 ==

== ENCOUNTER 2024-03-21 23:24 | Emergency (ER) | payer OTHER, SELFPAY ==
--- NOTE | 2024-03-21 | ECG_ITS ---
Test Reason : CHEST PAIN Blood Pressure : / mmHG Vent. Rate : 092 BPM Atrial Rate : 093 BPM P-R Int : 166 ms QRS Dur : 074 ms QT Int : 356 ms P-R-T Axes : -10 018 010 degrees QTc Int : 440 ms Normal sinus rhythm Normal ECG When compared with ECG of 02-FEB-2024 01:06, No significant change was found Referred By: Generic ED Physician Electronically Signed By:DIPTI KNAPP MD
--- NOTE | ~2024-03-21 | CT_ITS ---
EXAMINATION: CT ABDOMEN AND PELVIS WITHOUT CONTRAST CLINICAL INFORMATION: Acute onset left flank pain. COMPARISON: CT abdomen and pelvis 02/02/2024. TECHNIQUE: Multidetector volumetric imaging was performed from the superior aspect of the liver through the pubic symphysis. Sagittal and coronal reformatted images were obtained on the technologist's workstation. This CT examination was performed using dose optimization techniques as appropriate, variously including the following: *Automated exposure control *Adjustment of mA and/or kV according to patient size (this includes techniques or standardized protocols for targeted exams where dose is matched to indication/reason for exam; i.e. extremities or head) *Use of iterative reconstruction technique DLP: 698 mGy-cm FINDINGS: LUNG BASES: The visualized lung bases are unremarkable. LIVER, GALLBLADDER, AND BILIARY TREE: A benign-appearing 3 cm diameter low-density focus within peripheral calcification is present within the right lobe of the liver is most consistent with a benign, simple cyst unchanged compared to 02/02/2024. Diffuse low-attenuation of the liver is noted consistent with diffuse hepatic steatosis. The gallbladder is unremarkable with no evidence of radiopaque gallstones, gallbladder wall thickening, or obvious pericholecystic inflammatory changes. PANCREAS: Unremarkable. SPLEEN: Unremarkable. ADRENAL GLANDS: Unremarkable. KIDNEYS AND URETERS: A 2 mm x 2 mm calculus is present in the interpolar segment of the left kidney. A 1 mm calculus is present inferiorly within the left renal pelvis. An additional 2 mm x 2 mm calculus is present inferiorly within the left renal pelvis. An additional 1 mm punctate calculus is noted inferiorly within the left renal pelvis. A 1 mm calculus is present inferiorly within the right renal pelvis. Additional 1 mm calculus is present inferiorly within the right renal pelvis. No ureteral calculi visualized. No hydronephrosis or perinephric inflammatory changes identified. BLADDER: Unremarkable. GASTROINTESTINAL TRACT: Mild colonic diverticulosis. Normal appendix. No free intraperitoneal fluid or gas collections. Normal stomach and duodenum ABDOMINAL WALL: Midline ventral abdominal mesh graft is noted. No intestinal abdominal wall hernias identified. Lower ventral abdominal wall midline hernia containing fat without inflammatory changes measures approximately 3 cm in diameter and is unchanged compared with 02/02/2024 LYMPH NODES: Normal. VASCULAR: Unremarkable. PELVIC VISCERA: Uterus is absent. No adnexal lesions. OSSEOUS STRUCTURES: No suspicious skeletal abnormalities noted. CT/CT abdomen pelvis wo IV con IMPRESSION: *Multiple bilateral punctate nonobstructing renal calculi. No evidence of acute obstructive nephropathy. No hydronephrosis or perinephric inflammatory changes. *Mild colonic diverticulosis. Fleischner guidelines were followed. Electronically signed by: Jhoan Haynes MD 03/22/2024 04:19 AM JASON
[2024-03-21 23:42] VITALS: BP 148/98; PULSE 81; RESP 20; TEMP 37.2; O2SAT 98; BMI 37.2
[2024-03-21 23:43] LABS: MANUAL DIFF FLAG NO
[2024-03-21 23:44] LABS: Basophils Percent Auto 0.2 % (0-2); Eosinophils Absolute Auto 0.1 X10*3/uL (0.0-0.4); Eosinophils Percent Auto 1.4 % (0-4); Hematocrit 39.5 % (37.0-47.0); Imm Gran Abs Auto 0.05 X10*3/uL (0.00-0.03); Imm Gran Pct Auto 0.5 % (0.0-0.4); Lymphocytes Absolute Auto 2.2 X10*3/uL (1.2-4.9); Lymphocytes Percent Auto 23.1 % (20-40); Mean Corpuscular HGB Conc 35.4 g/dl (31.0-35.0); Mean Corpuscular Volume 84.8 fL (80.0-98.0); Mean Platelet Volume 9.4 fL (9.4-12.3); Monocytes Absolute Auto 0.6 X10*3/uL (0.1-1.2); Monocytes Percent Auto 5.8 % (2-11); Neutrophils Absolute Auto 6.5 x10*3/uL (2.0-8.3); Platelet Count 315 X10*3/uL (160-400); Red Blood Count 4.66 X10*6/uL (4.20-5.50); Red Cell Distribution Width 13.1 % (11.0-16.0); White Blood Count 9.4 X10*3/uL (4.8-10.8)
[2024-03-21 23:59] LABS: Alanine Aminotransferase 37 U/L (0-31); Albumin Level 3.9 g/dL (3.5-5.0); Alkaline Phosphatase 116 U/L (39-117); Anion Gap 12 (12-20); Aspartate Amino Transferase 37 U/L (5-31); Bilirubin Total 0.2 mg/dL (0.0-1.0); Blood Urea Nitrogen 17 mg/dL (9-16); Calcium 9.3 mg/dL (8.4-10.2); Carbon Dioxide 23 mmol/L (22-29); Chloride 106 mmol/L (96-108); Creatinine Clr Calc Pharmacy 99.3; Estimated Glomerular Filt Rate > 60; Glucose Random 149 mg/dL (60-115); Potassium 4.1 mmol/L (3.3-5.1); Sodium 137 mmol/L (135-145); Total Protein 7.4 g/dL (6.5-8.0)
[2024-03-22 00:05] LABS: Troponin-I High Sensitivity < 2.7 ng/L (<3.5-17.0)
[2024-03-22 01:04] LABS: Bacteria Urine None Seen (None Seen); Hyaline Casts Urine 0-2 /LPF (0-2); RBC Urine 0-2 /HPF (0-2); Squamous Epithelial Cell Urine 0-2 /HPF (0-2); WBC Urine 0-5 /HPF (0-5)
[2024-03-22 01:05] LABS: Color Urine Yellow; Glucose Urine UA Negative (Negative); Leukocyte Esterase Urine Negative (Negative); Nitrite Urine Negative (Negative); PH 6.5 (5.0-9.0); Specific Gravity - Urine 1.015 (1.005-1.025); Urine Blood Negative (Negative); Urine Ketones Negative (Negative); Urine Protein Negative (Neg-Trace)
[2024-03-22 01:06] LABS: Appearance Urine Clear
--- NOTE | 2024-03-22 01:30 | ED_ITS ---
HPI - General Adult General Chief complaint: General Medical Stated complaint: chest pain, left arm numb Time Seen by Provider: 03/22/24 01:30 Source: patient Mode of arrival: ambulatory Limitations: no limitations History of Present Illness ED Provider: HPI narrative: Patient's history of kidney stone in the past noticed sudden onset of pain left flank area on 18:00 sharp in character increases on deep inspiration and movement no hematuria no dysuria no frequency no shortness a breath no history of injury patient does have chronic back pain also Related Data Home Medications ?Medication ?Instructions ?Recorded ?Confirmed bupropion HCl 300 mg 24 hr tablet, 300 mg PO DAILY 09/08/23 02/13/24 extended release cyclobenzaprine 5 mg tablet 5 mg PO BEDTIME PRN prn 02/02/24 02/13/24 fluticasone propionate 50 1 spray intranasal BID PRN 02/02/24 02/13/24 mcg/actuation nasal allergies spray,suspension lidocaine 5 % topical patch 1 patch topical DAILY PRN Pain 02/02/24 02/13/24 metoprolol tartrate 25 mg tablet 25 mg PO DAILY 02/02/24 02/13/24 sumatriptan succinate 100 mg 100 mg PO DAILY PRN migraine 02/02/24 02/13/24 tablet (Imitrex) headache Previous Rx's ?Medication ?Instructions ?Recorded blood sugar diagnostic (FreeStyle #100 ea 07/20/20 Lite Strips) blood-glucose meter (FreeStyle #1 ea 07/20/20 Maxwell Lite kit) lancets 28 gauge (FreeStyle #100 ea 07/20/20 Lancets) acetaminophen 500 mg tablet 1,000 mg (2 x 500 mg) PO Q8H PRN 08/01/23 (Tylenol Extra Strength) back pain #60 tabs albuterol sulfate 90 mcg/actuation 2 puff inhalation Q4-6H PRN 09/19/23 aerosol inhaler shortness of breath or wheezing #1 ea fluticasone furoate 100 1 inh inhalation DAILY #30 ea 01/08/24 mcg/actuation blister powder for inhalation (Arnuity Ellipta) gabapentin 100 mg capsule 100 - 400 mg (1 - 4 x 100 mg) PO 01/16/24 BEDTIME 30 days #90 caps ondansetron 4 mg disintegrating 4 mg PO Q8H PRN nausea and 01/22/24 tablet vomiting 5 days #15 tabs lisinopril 5 mg tablet 5 mg PO DAILY #90 tabs 02/07/24 omeprazole 40 mg capsule,delayed 40 mg PO BID #180 caps 02/13/24 release hydrocortisone 2.5 % topical cream 1 appl SC BEDTIME 14 days #30 grams 02/15/24 with perineal applicator (Procto-Med HC) metformin 750 mg tablet,extended 750 mg PO BID #180 tabs 03/04/24 release 24 hr atorvastatin 10 mg tablet 10 mg PO BEDTIME #90 tabs 03/18/24 cyclobenzaprine 10 mg tablet 10 mg PO Q8H #20 tabs 03/22/24 lidocaine 4 % topical patch 1 patch topical DAILY PRN pain #10 03/22/24 ea Allergies Allergy/AdvReac Type Severity Reaction Status Date / Time hydrocodone [From VICODIN] Allergy Mild HIVES Verified 03/21/24 23:48 oxycodone [From PERCOCET] Allergy Mild HIVES Verified 03/21/24 23:48 azithromycin [AZITHROMYCIN] Allergy Unknown NAUSEA & Verified 03/21/24 23:48 VOMITING erythromycin base Allergy Unknown NAUSEA & Verified 03/21/24 23:48 [From ERYTHROCIN] VOMITING Review of Systems 2 Review of Systems: Yes all other systems are reviewed and are negative PMFSH Past Medical History Medical History Periodic limb movements of sleep Anemia Asthma Nephrolithiasis Sleep apnea Migraine Sinusitis Breast pain, left Hypertension Sleep apnea Bipolar 1 disorder Depression Anxiety delivery delivered Diabetes Sciatica Kidney infection Kidney stones HTN (hypertension) Fibromyalgia Lupus Surgical History H/O section H/O: hysterectomy Family History Family History Maternal Grandmother HTN (hypertension) Diabetes Cancer Mother Ovarian cancer Other FH: mental illness Substance use Social History Social History Housing: Apartment Are you a primary resident care aid to a significant other at home: No Do you presently have visiting nurse or other home services: No Alcohol intake: never Patient Tobacco Use Status: Current everyday Tobacco user Tobacco use type: Smokeless Tobacco Smoked in Last 30 Days: No e-Cigarette/Vaping Use: Currently Using Use of substances other than those prescribed or required for medical reasons: Yes Substance Use Type: Marijuana Advance Directives: Yes Advance Directives on File: Yes Advance Directives Date on File: 02/02/24 service: No Current occupational status: employed 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 Oriented X3. Mild distress. Eyes: No pallor ENT: Pharynx normal. Oral Mucosa moist Neck: Normal inspection. Neck supple. CVS: Normal heart rate and rhythm. Pulses normal. Respiratory: No respiratory distress. Equal air entry bilateral, no wheezing/rales/rhonchi Abdomen: Soft and nontender. Bowel sounds are present, no mass palpable, left CVA tenderness Skin: Skin warm and dry. Normal skin color. Normal skin turgor. Extremities: No lower extremity edema. No calf tenderness Neuro: Oriented X 3. Medications Administered Discontinued Medications Generic Name Dose Route Start Last Admin Trade Name Freq PRN Reason Stop Dose Admin Morphine Sulfate 15 mg 03/22/24 01:37 03/22/24 01:44 Morphine Sulfate Immed Release 15 Mg Tablet PO 03/22/24 01:38 15 mg ONCE ONE Administration Medical Decision Making Medical Decision Making MDM Narrative: Patient has acute onset of left flank pain with history of kidney stone although patient had a CT scan done in 01/31 showed small stone in the kidney without hydronephrosis as patient has severe pain insert sudden onset will do another CT scan to rule out ureteral stone CT scan negative for acute obstructive ureteric stone Lab Data [facility] Lab Attestation statement: I reviewed the patient's lab results. 03/21/24 23:38 03/21/24 23:38 Labs: Lab Results 03/21/24 03/22/24 Range/Units 23:38 00:11 WBC 9.4 (4.8-10.8) X10*3/uL RBC 4.66 (4.20-5.50) X10*6/uL Hgb 14.0 (12.0-16.0) g/dl Hct 39.5 (37.0-47.0) % MCV 84.8 (80.0-98.0) fL MCH 30.0 (27.0-33.0) pg MCHC 35.4 H (31.0-35.0) g/dl RDW 13.1 (11.0-16.0) % Plt Count 315 D (160-400) X10*3/uL MPV 9.4 (9.4-12.3) fL Immature Gran % (Auto) 0.5 H (0.0-0.4) % Neut % (Auto) 69.0 (45-73) % Lymph % (Auto) 23.1 (20-40) % [place] % (Auto) 5.8 (2-11) % Eos % (Auto) 1.4 (0-4) % Baso % (Auto) 0.2 (0-2) % Lymph # (Auto) 2.2 (1.2-4.9) X10*3/uL [place] # (Auto) 0.6 (0.1-1.2) X10*3/uL Eos # (Auto) 0.1 (0.0-0.4) X10*3/uL Baso # (Auto) 0.0 (0.0-0.2) X10*3/uL Abs Immat Gran (auto) 0.05 H (0.00-0.03) X10*3/uL Absolute Neuts (auto) 6.5 (2.0-8.3) x10*3/uL Absolute Nucleated RBC 0.000 (0.0-0.012) X10*3/uL Nucleated RBC % (auto) 0.0 (0.0-0.2) /100WBC Sodium 137 (135-145) mmol/L Potassium 4.1 (3.3-5.1) mmol/L Chloride 106 (96-108) mmol/L Carbon Dioxide 23 (22-29) mmol/L Anion Gap 12 (12-20) BUN 17 H (9-16) mg/dL Creatinine 0.81 (0.5-1.4) mg/dL Estim Creat Clear Calc 99.3 Estimated GFR > 60 Random Glucose 149 H (60-115) mg/dL Calcium 9.3 (8.4-10.2) mg/dL Total Bilirubin 0.2 (0.0-1.0) mg/dL AST 37 H (5-31) U/L ALT 37 H (0-31) U/L Alkaline Phosphatase 116 (39-117) U/L Troponin I High Sens < 2.7 (<3.5-17.0) ng/L Total Protein 7.4 (6.5-8.0) g/dL Albumin 3.9 (3.5-5.0) g/dL Urine Color Yellow Urine Appearance Clear Urine pH 6.5 (5.0-9.0) Ur Specific [place] 1.015 (1.005-1.025) Urine Protein Negative (Neg-Trace) mg/dL Urine Glucose (UA) Negative (Negative) mg/dL Urine Ketones Negative (Negative) mg/dL Urine Blood Negative (Negative) Urine Nitrite Negative (Negative) Ur Leukocyte Esterase Negative (Negative) Urine RBC 0-2 (0-2) /HPF Urine WBC 0-5 (0-5) /HPF Ur Squamous Epith Cells 0-2 (0-2) /HPF Urine Bacteria None Seen (None Seen) Hyaline Casts 0-2 (0-2) /LPF Independent Interpretation I performed an independent interpretation of an: CT Scan Radiology Impression Discussion of test interpretation with radiology: I have reviewed the radiologist's reading. Discharge Plan Discharge Clinical Impression: Back pain Patient Disposition: Home, Self-Care Instructions: Back Pain (ED) Additional Instructions: Take pain medication and muscle relaxant as prescribed Apply Lidoderm patch as advised for 12 hours at the painful area CT scan is negative for obstructive kidney stone Prescriptions: New cyclobenzaprine 10 mg tablet 10 mg PO Q8H Qty: 20 0RF lidocaine 4 % adhesive patch,medicated 1 patch topical DAILY PRN (Reason: pain) Qty: 10 0RF No Action Arnuity Ellipta 100 mcg/actuation blister with device 1 inh inhalation DAILY Qty: 30 6RF lisinopril 5 mg tablet 5 mg PO DAILY Qty: 90 0RF metformin 750 mg tablet extended release 24 hr 750 mg PO BID Qty: 180 0RF atorvastatin 10 mg tablet 10 mg PO BEDTIME Qty: 90 0RF (DME) blood-glucose meter [FreeStyle Maxwell Lite] Kit See Rx Instructions .ROUTE .MEDSUPPLY Qty: 1 0RF Rx Instructions: As directed (DME) FreeStyle Lite Strips Strip See Rx Instructions .ROUTE .MEDSUPPLY Qty: 100 0RF Rx Instructions: As directed (DME) lancets [FreeStyle Lancets] 28 gauge misc See Rx Instructions .ROUTE .MEDSUPPLY Qty: 100 0RF Rx Instructions: As directed hydrocortisone [Procto-Med HC] 2.5 % cream with perineal applicator 1 appl SC BEDTIME 14 Days Qty: 30 0RF Rx Instructions: Apply daily at bedtime sumatriptan succinate [Imitrex] 100 mg tablet 100 mg PO DAILY PRN (Reason: migraine headache) Rx Instructions: 100 mg orally PRN; lidocaine 5 % adhesive patch,medicated 1 patch topical DAILY PRN (Reason: Pain) Rx Instructions: leave on most painful area for up to 12 hrs fluticasone propionate 50 mcg/actuation spray,suspension 1 spray intranasal BID PRN (Reason: allergies) Rx Instructions: administer into each nostril cyclobenzaprine 5 mg tablet 5 mg PO BEDTIME MDD muscle spasms PRN (Reason: prn) metoprolol tartrate 25 mg tablet 25 mg PO DAILY acetaminophen [Tylenol Extra Strength] 500 mg tablet 1,000 mg PO Q8H PRN (Reason: back pain) Qty: 60 0RF bupropion HCl 300 mg tablet extended release 24 hr 300 mg PO DAILY albuterol sulfate 90 mcg/actuation HFA aerosol inhaler 2 puff inhalation Q4-6H PRN (Reason: shortness of breath or wheezing) Qty: 1 3RF ondansetron 4 mg tablet,disintegrating 4 mg PO Q8H PRN (Reason: nausea and vomiting) 5 Days Qty: 15 12RF gabapentin 100 mg capsule 100 - 400 mg PO BEDTIME 30 Days Qty: 90 3RF omeprazole 40 mg capsule,delayed release(DR/EC) 40 mg PO BID Qty: 180 0RF Interventions: ED Discharge Assessment Last Done: 03/22/24 04:39 Discharge Date/Time: 03/22/24 04:40 Print Language: Lithuanian
[2024-03-22] MEDS: Morphine Sulfate Immed Release 15 MG TABLET PO (01:44)
[2024-03-22 04:00] VITALS: BP 138/90; PULSE 77; RESP 18; TEMP 37.1; O2SAT 99
[2024-03-22 04:39] VITALS: BP 138/90; PULSE 77; RESP 18; TEMP 37.1; O2SAT 99
== END 2024-03-22 04:40 | disposition home or self-care (01) ==
PROVIDERS: Emergency Provider Internal Medicine; PCP Nurse Practitioner Family
DX: M54.9 Dorsalgia, unspecified (principal); R07.9 Chest pain, unspecified; R10.9 Unspecified abdominal pain; I10 Essential (primary) hypertension; Z79.899 Other long term (current) drug therapy
CPT/HCPCS: 36415; 74176; 80053; 81001; 84484; 85025; 93005; 99284; 99285

== ENCOUNTER → 2024-03-21 23:32 | Outpatient (BNV) | payer OTHER, SELFPAY | PROVIDERS: Emergency Provider Internal Medicine; PCP Nurse Practitioner Family; Visit Provider Internal Medicine Cardiovascular Disease | DX: R07.9 Chest pain, unspecified (principal) | CPT/HCPCS: 93010 ==

== ENCOUNTER 2024-04-08 09:06 | Outpatient (AMB) | payer OTHER, SELFPAY ==
--- NOTE | 2024-04-08 09:08 | A.OFFPC_ITS ---
Vital Signs 04/08/24 09:14 Height 5 ft 3 in Weight 199 lb 8 oz BMI 35.3 BP 138/78 Blood Pressure Location Rt brachial Position Sitting Respiration 14 Pulse 75 Pulse Source Pulse Oximeter Pulse Oximetry (%) 98 Oxygen Delivery Method Room Air Intake Visit Reasons: Symptoms worsen , lot of pain Intake Note: Patient complaining of symptoms getting worse, sever back px and now is interfering with work now, nothing helps with px. Granular Operator Required: No Allergies hydrocodone [From VICODIN] Allergy (Mild, Verified 04/08/24 09:48) HIVES oxycodone [From PERCOCET] Allergy (Mild, Verified 04/08/24 09:48) HIVES azithromycin [AZITHROMYCIN] Allergy (Unknown, Verified 04/08/24 09:48) NAUSEA & VOMITING erythromycin base [From ERYTHROCIN] Allergy (Unknown, Verified 04/08/24 09:48) NAUSEA & VOMITING Medication List - Last Reconciled 04/08/24 by Minerva Zultea, PAINTER AND PAPERHANGER APPRENTICE- acetaminophen (Tylenol Extra Strength) 1,000 mg (2 x 500 mg) PO Q8H PRN albuterol sulfate 90 mcg/actuation 2 puffs inhalation Q4-6H PRN atorvastatin 10 mg PO BEDTIME blood sugar diagnostic (FreeStyle Lite Strips) As directed blood-glucose meter (FreeStyle [place] Lite kit) As directed bupropion HCl XL 300 mg PO DAILY cyclobenzaprine 10 mg PO Q8H cyclobenzaprine 5 mg PO BEDTIME PRN MDD muscle spasms fluticasone furoate 100 mcg/actuation (Arnuity Ellipta) 1 inh inhalation DAILY fluticasone propionate 50 mcg/actuation 1 spray intranasal BID PRN gabapentin 100 - 400 mg (1 - 4 x 100 mg) PO BEDTIME 30 days hydrocortisone 2.5% (Procto-Med HC) 1 appl CA BEDTIME 14 days lancets (FreeStyle Lancets) As directed lidocaine 5% 1 patch topical DAILY PRN lidocaine 4% 1 patch topical DAILY PRN lisinopril 5 mg PO DAILY metformin ER 750 mg PO BID metoprolol tartrate 25 mg PO DAILY omeprazole 40 mg PO BID ondansetron 4 mg PO Q8H PRN 5 days sumatriptan succinate (Imitrex) 100 mg PO DAILY PRN Tobacco use date assessed: 09/08/23 Dental Screening Dental Screen Date: 09/08/23 HPI HPI Comments History of Present Illness Details 43-year-old female with diabetes 2, asth ma, anxiety, MDD, constipation, bipolar 1 disorder, sleep apnea, renal stones, PTSD, lupus, hypertension, fibromyalgia, 3.6 cm hypodense lesion in the liver at the junction of the right and left hepatic lobes with thin rim calcification along the right lateral wall of the lesion, CAD, . Small fat-containing anterior midline hernia , diverticulosis, fatty liver, splenomegaly, osteoarthritis multiple joints Status post hysterectomy, hernia bow repairer custom Urology Breast Specialist Neuro consult 01/2024 labs ordered, cont APAP, Trial Gabapentin 100mg cap- 1-4 caps q evening through bedtime. RTO 6 mo Pain Mgmt Sleep Medicine Counselor/Nurse [facility] next appt Apr 2024 Pulm: consult 12/25/23: nicotrol, ics, pft Health maintenance Health maintenance DEXA 10/2023 DIAGNOSIS: Normal bone density Pap s/p RAMBO, referred to [facility] today Colon 02/15/24 [facility] 1. Cecum not visualised but remaining mucosa normal. (biopsy), Total of 1 polyp removed, External and internal hemorrhoids with stigmata of recent bleeding, diverticulosis Recommendations: - Follow path results. - Repeat colo at 46y.o as today's colo w as not adequate for CRC screening - Bleeding likely from bleeding hemorrho ids. Anusol supp Rxed - Avoid constipation and straining Diabetic eye exam: pending. Mammo 10/17/23 Grouped calcifications in the right breast warrant additional mammographic imaging with magnification.No mammographic signs of malignancy left breast. ASSESSMENT: BI-RADS BI-RADS 0 - Incomplete: Needs additional Imaging. RECOMMENDATION: Additional views of the right breast, 12/06/23 Dr Garcia MM stereotactic bi opsy RT negative p athology The patient is a 43-year-old female presenting with severe back pain and related symptoms. The back pain has been a significant issue, affecting her daily activities and work. The pain radiates up to the shoulder blades and down to the tailbone, described as stinging and burning. It progressively worsens, becoming as severe as the pain in the lower back, impacting her quality of life. She finds relief only through specific positions or activities, but the pain often leads to near-collapse due to the intensity. The pain began a few months ago and appears constant. This is compounded by episodes of chest pain, shortness of breath, and radiating pain into the arm. Recently, she had an MRI ordered while in the hospital for her back pain, which was denied. She is unable to get another MRI for 60 to 90 days due to insurance constraints. In addition, the patient recently reported flank pain and recurrent kidney stones. These stones do not obstruct but cause substantial pain. [facility] ED visit 03/21/24 for this. Records reviewed. Has questions about labs Jan-Mar. Laboratories show mild hemolysis and [id number] liver enzymes, which could relate to her current symptoms. There were earlier abnormal results with hemolysed blood samples but ongoing labs indicate normal potassium levels and good kidney function. The patient also reports significant involuntary weight loss; she is under 200 pounds for the first time in a decade. She has also experienced persistent nausea and vomiting, struggling to keep food down; she self reduced metformin er to QD. - Employment: Works in [employer], requ iring physical activity, leading to pain exacerbation - Functional Status: Limited due to back pain and associated symptoms - Current Nutritional Intake: Limited fo od intake due to nausea and vomiting, minimal carbs, primarily consuming cheese sticks and water - Weight Management: Noted involuntary w eight loss, under 200 pounds for the first time in 10 years - Use of recreational and medical cannab is and morphine to manage severe pain - Familial Support: Has a supportive hus band who assists during acute pain episodes Review of Systems - Gastrointestinal: Reports persistent n ausea, vomiting, and abdominal pain; MRI abd ordered by GI and pending - Musculoskeletal: Reports severe back p ain extending to shoulders, neck, and tailbone, accompanied by leg and hip discomfort - Neurological: Occasionally experiences vertigo - Cardiovascular: Reports chest pain rad iating to left arm, largely during periods of stress or exertion - Respiratory: Occasional shortness of b reath Exam: Awake alert NAD scleras nonicteric bilat MMM RRR LS CTAB Abd soft, tender over RUQ and into posterior trunk, mildly tender over LUQ otherwise nontender pain over transverse low back and bilat hips w/ palpation and movement, has pain over lumbarsacral spine w/ palp, + SLR bilat worse on R Mood and affect appropriate Results - Labs: Mild hemolysis noted; elevated l iver enzymes; normal kidney function; potassium within normal limits - Imaging: Prior abdominal CT shows a be nign liver cyst, confirmed on recent scan, and no change from previous imaging Patient was informed and verbally consented to the use of an ambient scribe for clinic note documentation during this visit. Discussion Notes I discussed with the patient the challenges in pain management given the denied MRI and the plan to seek pain management input to potentially alter her treatment plan for comfort. The discussions included referral to urology, allowing further specialist evaluation given her renal pain history. We decided to trial discontinuation of metformin for two weeks to assess its effect on her gastrointestinal symptoms, with the intent to manage controllable glucose levels temporarily. We also reviewed the importance of scheduling an abdominal MRI to further examine the benign-appearing liver cyst, especially with their associated symptoms. I explained the roles of each of these steps for her health improvement and emphasized the necessity for a coordinated follow-up to possibly adjust therapeutic interventions. Plan - Reassess MRI scheduling options post-d enial period for definitive imaging of the back pain - Referral to a urologist for evaluation of recurrent kidney stones - Review and possibly discontinue metfor min to assess if it contributes to gastrointestinal symptoms - Reevaluate liver function tests due to mildly elevated enzymes - Follow-up with pain management for devon luation and possible interventional pain relief measures - Schedule for abdominal MRI as recommen ded by specialist colleagues Patient Instructions - Contact Radiology to schedule an abdom en MRI - Hold off from taking metformin for two weeks. Monitor blood glucose levels closely - Await contact from the urology and jovana n management teams for follow-up appointments - Return for evaluation in two weeks to review symptom changes and medication impact - Seek immediate medical attention if sy mptoms significantly worsen or new concerning symptoms develop Total time spent caring for the patient today was 60 minutes. This includes time spent before the visit reviewing the chart, time spent during the visit, and time spent after the visit on documentation [facility] Medical History (Updated 04/08/24 @ 17:37 by Minerva Zuleta [facility]) Nephrolithiasis Periodic limb movements of sleep Anemia Asthma Sleep apnea Migraine Sinusitis Breast pain, left Hypertension Sleep apnea Bipolar 1 disorder Depression Anxiety delivery delivered Diabetes Sciatica Kidney infection Kidney stones HTN (hypertension) Fibromyalgia Lupus Surgical History H/O section H/O: hysterectomy Family History Maternal Grandmother HTN (hypertension) Diabetes Cancer Mother Ovarian cancer Other FH: mental illness Substance use Social History Housing: Apartment Are you a primary healthcare sales representative to a significant other at home: No Do you presently have visiting nurse or other home services: No Alcohol intake: never Patient Tobacco Use Status: Current everyday Tobacco user Tobacco use type: Smokeless Tobacco e-Cigarette/Vaping Use: Currently Using Substance Use Type: Marijuana Advance Directives Date on File: 02/02/24 service: No Current occupational status: employed 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 1. Little interest or pleasure in doing things: more than half the days 2. Feeling down, depressed, or hopeless: more than half the days 3. Trouble falling or staying asleep, or sleeping too much: more than half the days 4. Feeling tired or having little energy: more than half the days 5. Poor appetite or overeating: more than half the days 6. Feeling bad about yourself - or that you are a failure or have let yourself or your family down: more than half the days 7. Trouble concentrating on things, such as reading the newspaper or watching television: more than half the days 8. Moving or speaking so slowly that other people could have noticed. Or the opposite - being so fidgety or restless that you have been moving around a lot more than usual: more than half the days 9. Thoughts that you would be better off or of hurting yourself in some way: several days Total score: 17 91949 - PHQ-9 Billing: Yes Source: Developed by Drs. Rob Parry, Tana Rowley, Gen Mcdonald and colleagues, with an educational ezra from [employer]. Thrive Questionnaire Date Thrive assessed: 04/08/24 I am a: Patient What is your living situation today?: I have a steady place to live Within the past 12 months, did the food you bought not last and you didn't have the money to get more?: Sometimes True Within the past 12 months, did you worry whether your food would run out before you got money to buy more?: Sometimes True Do you have trouble paying for medicines?: No Do you have trouble getting transportation to medical appointments?: No Do you have trouble paying your heating and electricity bill?: Yes Do you have trouble taking care of your child, family member or friend?: No Do you have trouble with day-to-day activities such as bathing, preparing meals, shopping, managing finances, etc.?: No Are you currently unemployed and looking for a job?: No Are you interested in more education?: No Please select the resources that you would like help with: None Currently or been in a relationship where the following occur: No concerns reported THRIVE Score: 3 JONATHON-7 AMB Questionnaire JONATHON-7 Date JONATHON - 7 assessed: 02/13/24 Source: Developed by Drs. Rob Parry, Tana Rowley, Gen Mcdonald and colleagues, with an educational ezra from [employer]. Physical exam (Primary Care) Vital Signs: Last Vital Signs Pulse 75 04/08/24 09:14 Resp 14 04/08/24 09:14 BP 138/78 04/08/24 09:14 Pulse Ox 98 04/08/24 09:14 Oxygen Delivery Method Room Air 04/08/24 09:14 BMI result Body Mass Index 35.3 Tobacco/Smoking Status: Tobacco use Status Tobacco use date assessed 09/08/23 04/08/24 09:11 Patient Tobacco Use Status Current everyday Tobacco 04/08/24 09:11 Tobacco use type Smokeless Tobacco 04/08/24 09:11 e-Cigarette/Vaping Use Currently Using 04/08/24 09:11 PHQ-9: PHQ-9 Score PHQ-9: Total score 17 04/08/24 09:32 Thrive Assessment: Date of Thrive Assessment Date Thrive assessed 04/08/24 04/08/24 09:11 Currently or been in a relationship where the following occur: No concerns reported Coding Level of Care Code Est Pt Level 5 (72247) Complex EM visit Add On G2211 Diagnoses Hospital discharge follow-up Z09 Nephrolithiasis N20.0 Paresthesia of bilateral legs R20.2 Lumbar pain M54.50 Liver cyst K76.89 DM type 2 causing complication E11.8 Weight loss, unintentional R63.4 Additional Codes PHQ-9 - 50759 - PHQ-9 Billing: Yes ([id number]) Assessment & Plan Assessment & Plan (1) Hospital discharge follow-up: Code(s): Z09 - Encounter for follow-up examination after completed treatment for conditions other than malignant neoplasm (2) Nephrolithiasis: Code(s): N20.0 - Calculus of kidney Category: Medical (3) Paresthesia of bilateral legs: Code(s): R20.2 - Paresthesia of skin Category: Medical (4) Lumbar pain: Code(s): M54.50 - Low back pain, unspecified Category: Medical (5) Liver cyst: Comment: 03/2024 CT Abd Pelvis: A benign-appearing 3 cm diameter low-density focus within peripheral calcification is present within the right lobe of the liver is most consistent with a benign, simple cyst unchanged compared to 02/02/2024. MRI abd ordered by GI and pending Code(s): K76.89 - Other specified diseases of liver Category: Medical (6) DM type 2 causing complication: Code(s): E11.8 - Type 2 diabetes mellitus with unspecified complications Category: Medical (7) Weight loss, unintentional: Code(s): R63.4 - Abnormal weight loss Category: Medical Plan . Orders: Referrals Urology Referral N20.0 - Calculus of kidney
[2024-04-08 09:14] VITALS: BP 138/78; PULSE 75; RESP 14; O2SAT 98; BMI 35.3
== END 2024-04-08 10:00 | disposition home or self-care (01) ==
PROVIDERS: PCP Nurse Practitioner Family; Visit Provider Nurse Practitioner Family
DX: E11.8 Type 2 diabetes mellitus with unspecified complications (principal); N20.0 Calculus of kidney; Z09 Encounter for follow-up examination after completed treatment for conditions other than malignant neoplasm; R20.2 Paresthesia of skin; M54.50 Low back pain, unspecified; K76.89 Other specified diseases of liver; R63.4 Abnormal weight loss

== ENCOUNTER → 2024-04-08 09:06 | Outpatient (BNVA) | payer OTHER, SELFPAY | PROVIDERS: PCP Nurse Practitioner Family; Visit Provider Nurse Practitioner Family | DX: Z09 Encounter for follow-up examination after completed treatment for conditions other than malignant neoplasm (principal); N20.0 Calculus of kidney; R20.2 Paresthesia of skin; M54.50 Low back pain, unspecified; K76.89 Other specified diseases of liver; E11.8 Type 2 diabetes mellitus with unspecified complications; R63.4 Abnormal weight loss | CPT/HCPCS: 96127; 99212 ==

== ENCOUNTER 2024-04-12 09:07 | Outpatient (AMB) | payer OTHER, SELFPAY ==
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
[2024-04-12 09:16] VITALS: BP 150/86; PULSE 71; O2SAT 98; BMI 35.2
== END 2024-04-12 09:38 | disposition home or self-care (01) ==
PROVIDERS: PCP Nurse Practitioner Family; Visit Provider Nurse Practitioner Family
DX: R20.2 Paresthesia of skin (principal); M54.16 Radiculopathy, lumbar region; M54.51 Vertebrogenic low back pain; K59.09 Other constipation; M54.50 Low back pain, unspecified; M62.830 Muscle spasm of back; M53.3 Sacrococcygeal disorders, not elsewhere classified
CPT/HCPCS: 99214; G2211

== ENCOUNTER → 2024-04-12 09:07 | Outpatient (BNVA) | payer OTHER, SELFPAY | PROVIDERS: PCP Nurse Practitioner Family; Visit Provider Nurse Practitioner Family | DX: M54.16 Radiculopathy, lumbar region (principal); M54.51 Vertebrogenic low back pain; M54.50 Low back pain, unspecified; M62.830 Muscle spasm of back; M53.3 Sacrococcygeal disorders, not elsewhere classified; K59.09 Other constipation; R20.2 Paresthesia of skin | CPT/HCPCS: 99212 ==

== ENCOUNTER 2024-04-15 10:11 | Outpatient (AMB) | payer OTHER, SELFPAY ==
--- NOTE | 2024-04-15 10:33 | A.OFFVIS_ITS ---
Intake Visit Reasons: ultrasound follow up Outdoor Adventure Guides: Outdoor Adventure Guides Present (Maru) Accompanied by: Self / Same As Patient Allergies hydrocodone [From VICODIN] Allergy (Mild, Verified 04/15/24 10:34) HIVES oxycodone [From PERCOCET] Allergy (Mild, Verified 04/15/24 10:34) HIVES azithromycin [AZITHROMYCIN] Allergy (Unknown, Verified 04/15/24 10:34) NAUSEA & VOMITING erythromycin base [From ERYTHROCIN] Allergy (Unknown, Verified 04/15/24 10:34) NAUSEA & VOMITING HPI Comments Details: Presenting for follow-up regarding her pelvic pain. The patient is doing well The following workup was done so far: Last visit urine dip was done in the office and was negative. Pelvic ultrasound showed the following: IMPRESSION: Uterus surgically removed. There are at least 2 loose cyst in left ovary. The largest cyst appears simple cyst. There is no free fluid in cul-de-sac. CT scan done recently showed the following: IMPRESSION: *Multiple bilateral punctate nonobstructing renal calculi. No evidence of acute obstructive nephropathy. No hydronephrosis or perinephric inflammatory changes. *Mild colonic diverticulosis. The patient has an appointment with Urology scheduled in the coming few weeks [facility] Medical History Nephrolithiasis Periodic limb movements of sleep Anemia Asthma Sleep apnea Migraine Sinusitis Breast pain, left Hypertension Sleep apnea Bipolar 1 disorder Depression Anxiety delivery delivered Diabetes Sciatica Kidney infection Kidney stones HTN (hypertension) Fibromyalgia Lupus Surgical History H/O section H/O: hysterectomy Family History Maternal Grandmother HTN (hypertension) Diabetes Cancer Mother Ovarian cancer Other FH: mental illness Substance use Social History Housing: Apartment Are you a primary health and social care teacher to a significant other at home: No Do you presently have visiting nurse or other home services: No Alcohol intake: never Patient Tobacco Use Status: Current everyday Tobacco user Tobacco use type: Smokeless Tobacco e-Cigarette/Vaping Use: Currently Using Substance Use Type: Marijuana Advance Directives Date on File: 02/02/24 service: No Current occupational status: employed 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 Current occupational exposures/hazards: No Cognitive needs: No Hearing needs: No Vision needs: Yes (glasses) Review of Systems Const All systems reviewed & are unremarkable except as noted in HPI and below Reports as per HPI and Reports no additional complaints GI Reports no additional complaints Reports no additional complaints Results AMB Urinalysis, Automated UA Leukoctes 0 Tk/uL Last Edit by CLAUDIA Flores on 04/15/24 11:00 UA Nitrite Negative Last Edit by CLAUDIA Flores on 04/15/24 11:00 UA Urobilinogen 0 mg/dL Last Edit by CLAUDIA Flores on 04/15/24 11:0 0 UA Protein 0.5 mg/dL Last Edit by CLAUDIA Flores on 04/15/24 11:00 UA pH 6.0 Last Edit by CLAUDIA Flores on 04/15/24 11:00 UA Blood 0 Kit/uL Last Edit by CLAUDIA Flores on 04/15/24 11:00 UA Specific [place] 1.015 Last Edit by Teresita Mosley Lou on 04/15/24 11:00 UA Ketone Negative Last Edit by CLAUDIA Flores on 04/15/24 11:00 UA Bilirubin 0 mg/dL Last Edit by CLAUDIA Flores on 04/15/24 11:00 UA Glucose 0.5 mg/dL Last Edit by Teresita Mosley Lou on 04/15/24 11:00 Assessment & Plan Assessment & Plan (1) Pelvic pain: Code(s): R10.2 - Pelvic and perineal pain Category: Medical Plan: Urine dip done in the office today was negative . Discussed with the patient the results of the workup done including negative last visit urine dip and pelvic ultrasound finding showing left complex ovarian cyst and CT scan showing multiple kidney stone. Differential diagnosis of beeswax bleacher causes that have not be ruled out yet include but not limited to ovarian cyst, endometriosis, pelvic adhesions , kidney stones or other. Recommended for the patient to see her PCP for further workup for non beeswax bleacher causes; if the all the results are negative and the patient's pelvic pain is persistent, instructions given to patient to call back for further testing. Meanwhile, instructions were given the patient to go to emergency room or call in case of fever above 100.4, heavy vaginal bleeding, persistence or worsening of her pelvic pain. All questions answered, the patient verbalized understanding. (2) Complex ovarian cyst: Code(s): N83.299 - Other ovarian cyst, unspecified side Category: Medical Plan: Discussed with the patient the complex ovarian cyst by ultrasound. Discussed with the patient the Ultrasound findings, the main limitation of transvaginal ultrasonography alone as a diagnostic tool to distinguish benign from malignant masses relates to its lack of specificity and low positive predictive value for cancer. The differential diagnosis discussed with the patient includes the following but not limited to: benign and malignant gynecological and non-gynecological causes. Discussed with the patient options of treatment including laparoscopy ovarian cystectomy/oophorectomy vs. expectant management with repeat US in repeating pelvic US in 6 weeks from previous US. If the ovarian complex cyst is persistent larger and / or more complex looking, or elevated CA 125 will refer to gynecologic Oncology. All pros, cons, risks and benefits of each approach were discussed with the patient including but not limited to a delay in the diagnosis and treatment of ovarian cancer affecting the prognosis; The patient decided to go ahead with expectant management. Instructions given the patient to schedule a 6 weeks follow-up ultrasound appointment. All questions were answered & the patient verbalized understanding and agreed with the plan. Orders: Orders US pelvic and transvaginal 6 Weeks N83.299 - Other ovarian cyst, unspecified side Coding Level of Care Code Est Pt Level 3 (10279) Diagnoses Pelvic pain R10.2 Complex ovarian cyst N83.299
== END 2024-04-15 10:57 | disposition home or self-care (01) ==
PROVIDERS: PCP Nurse Practitioner Family; Visit Provider Obstetrics & Gynecology
DX: R10.2 Pelvic and perineal pain (principal); N83.299 Other ovarian cyst, unspecified side
CPT/HCPCS: 99213

== ENCOUNTER → 2024-04-15 10:11 | Outpatient (BNVA) | payer OTHER, SELFPAY | PROVIDERS: PCP Nurse Practitioner Family; Visit Provider Obstetrics & Gynecology | DX: N83.292 Other ovarian cyst, left side (principal); R10.2 Pelvic and perineal pain | CPT/HCPCS: 81003; 99212 ==

== ENCOUNTER → 2024-04-26 09:10 | Outpatient (BNV) | payer OTHER, SELFPAY | PROVIDERS: PCP Nurse Practitioner Family; Visit Provider Radiology Diagnostic Radiology | DX: K76.0 Fatty (change of) liver, not elsewhere classified (principal); K86.2 Cyst of pancreas | CPT/HCPCS: 74183 ==

== ENCOUNTER 2024-04-26 09:24 | Outpatient (REF) | payer OTHER, SELFPAY ==
--- NOTE | ~2024-04-26 | MR_ITS ---
EXAMINATION: MRI Abdomen without and with contrast HISTORY: K76.89 - liver cyst and abdominal pain. COMPARISON: Correlation is made with multiple prior abdominal CT scans performed at this facility. TECHNIQUE: Axial in and out of phase T1-weighted gradient echo, axial diffusion weighted, and axial and coronal haste T2 with fat saturation images were obtained through the abdomen. Subsequently, fat suppressed axial and coronal T1-weighted images were obtained after the intravenous administration of 9 mL Gadavist. FINDINGS: There is diffuse loss of signal intensity within the liver on opposed phase imaging, consistent with steatosis. There is a 3.7 cm lobulated T2 hyperintense structure in segment IV of the liver. This demonstrates signal intensity which is slightly hypointense to simple fluid on T2 weighted imaging, and slightly hyperintense to simple fluid on T1-weighted imaging. There is a T2 hypointense rim consistent with calcification noted on CT. There is no enhancement of the lesion. Findings are compatible with a proteinaceous cyst, which could be postinfectious or posttraumatic in nature. No additional liver lesion is identified. It is unchanged in size dating back to 08/16/2021. There is no intra or extrahepatic biliary ductal dilatation. The hepatic and portal veins are patent. There is a 9 mm cystic structure in the body of the pancreas, likely unchanged from a CT dated 08/16/2021. There is no pancreatic ductal dilatation. The gallbladder and spleen are unremarkable. There are cysts in both kidneys, measuring up to 11 mm in size. There are scattered subcentimeter retroperitoneal lymph nodes which are not enlarged by CT criteria. No ascites is identified in the upper abdomen. MR/MR abdomen wo/w con IMPRESSION: 1. Hepatic steatosis. 2. Findings consistent with a 3.7 cm proteinaceous cyst in segment IV of the liver, which could be postinfectious or posttraumatic in nature. This is unchanged in size dating back to 08/16/2021. 3. 9 mm cystic structure in the body of the pancreas which may represent an IPMN. This is unchanged dating back to 08/16/2021. Electronically signed by: Rob Jolley MD 04/26/2024 11:17 AM [facility]
[2024-04-26] MEDS: gadobutroL 10 ML VIAL IVPUSH (10:25)
== END 2024-04-26 09:25 | disposition home or self-care (01) ==
LOC: HO.MRI 09:24
PROVIDERS: PCP Nurse Practitioner Family; Visit Provider Internal Medicine
DX: R10.9 Unspecified abdominal pain (principal); K76.89 Other specified diseases of liver
CPT/HCPCS: 74183; A9585

== ENCOUNTER 2024-04-26 12:28 | Outpatient (AMB) | payer OTHER, SELFPAY ==
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
[2024-04-26 12:34] VITALS: BP 122/70; PULSE 68; RESP 12; O2SAT 99; BMI 36.0
== END 2024-04-26 14:00 | disposition home or self-care (01) ==
PROVIDERS: PCP Nurse Practitioner Family; Visit Provider Nurse Practitioner Family
DX: E11.8 Type 2 diabetes mellitus with unspecified complications (principal); R10.11 Right upper quadrant pain; E66.01 Morbid (severe) obesity due to excess calories; Z68.36 Body mass index [BMI] 36.0-36.9, adult; F12.90 Cannabis use, unspecified, uncomplicated; R63.4 Abnormal weight loss; N20.0 Calculus of kidney

== ENCOUNTER → 2024-04-29 09:11 | Outpatient (BNVA) | payer OTHER, SELFPAY | PROVIDERS: PCP Nurse Practitioner Family; Visit Provider Internal Medicine | DX: K64.9 Unspecified hemorrhoids (principal); K76.89 Other specified diseases of liver; K76.0 Fatty (change of) liver, not elsewhere classified; E66.9 Obesity, unspecified; K86.2 Cyst of pancreas; E11.9 Type 2 diabetes mellitus without complications; R79.89 Other specified abnormal findings of blood chemistry; Z68.35 Body mass index [BMI] 35.0-35.9, adult | CPT/HCPCS: 99212 ==

== ENCOUNTER 2024-05-06 09:21 | Outpatient (AMB) | payer OTHER, SELFPAY ==
[2024-05-06 10:34] VITALS: BP 132/80; PULSE 80; TEMP 36.7; O2SAT 98; BMI 35.3
--- NOTE | 2024-05-06 10:34 | AM.OFFWIN_ITS ---
Intake Vital Signs 05/06/24 10:34 Height 5 ft 3 in Weight 199 lb 2 oz BMI 35.3 BP 132/80 Blood Pressure Location Lt brachial Position Sitting Pulse 80 Pulse Source Pulse Oximeter Temp 98.1 F Temp Source Oral Pulse Oximetry (%) 98 Oxygen Delivery Method Room Air Intake Visit Reasons: EP no voice, nauseous, vomiting, chest pain Intake Note: pt is here for no voice, vomiting, nausea Patient Tobacco Use Status: Current everyday Tobacco user Allergies hydrocodone [From VICODIN] Allergy (Mild, Verified 05/06/24 12:38) HIVES oxycodone [From PERCOCET] Allergy (Mild, Verified 05/06/24 12:38) HIVES azithromycin [AZITHROMYCIN] Allergy (Unknown, Verified 05/06/24 12:38) NAUSEA & VOMITING erythromycin base [From ERYTHROCIN] Allergy (Unknown, Verified 05/06/24 12:38) NAUSEA & VOMITING metformin Adverse Reaction (Mild, Uncoded 04/29/24 09:19) Gastrointestinal Upset Do you need a note to return to daycare/school/sports/work: No HPI HPI Comments History of Present Illness Details 43 y/o female patient who presents to [facility] walk in clinic with c/o URI. Pt c/o nausea, vomiting since night. She has been unable to keep any fluids or food. She also c/o Cough, generalized malaise, fevers at home. Family members at home with similar symptoms. [facility] Medical History (Updated 05/06/24 @ 11:29 by Radha Shine NP) Acute respiratory disease Nausea with vomiting, unspecified Nephrolithiasis Periodic limb movements of sleep Anemia Asthma Sleep apnea Migraine Sinusitis Breast pain, left Hypertension Sleep apnea Bipolar 1 disorder Depression Anxiety delivery delivered Diabetes Sciatica Kidney infection Kidney stones HTN (hypertension) Fibromyalgia Lupus Surgical History (Updated 04/29/24 @ 09:15 by CLAUDIA Mcgregor) Hx of colonoscopy History of esophagogastroduodenoscopy (EGD) H/O section H/O: hysterectomy Family History Maternal Grandmother HTN (hypertension) Diabetes Cancer Mother Ovarian cancer Other FH: mental illness Substance use Social History Housing: Apartment Are you a primary critical care paramedic to a significant other at home: No Do you presently have visiting nurse or other home services: No Alcohol intake: never Patient Tobacco Use Status: Current everyday Tobacco user Tobacco use type: Smokeless Tobacco e-Cigarette/Vaping Use: Currently Using Substance Use Type: Marijuana Advance Directives Date on File: 02/02/24 service: No Current occupational status: employed 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 Current occupational exposures/hazards: No Cognitive needs: No Hearing needs: No Vision needs: Yes (glasses) Review of Systems Const All systems reviewed & are unremarkable except as noted in HPI and below Physical Exam Vital Signs: Last Vital Signs Temp 98.1 F 05/06/24 10:34 Pulse 80 05/06/24 10:34 BP 132/80 05/06/24 10:34 Pulse Ox 98 05/06/24 10:34 Oxygen Delivery Method Room Air 05/06/24 10:34 BMI result Body Mass Index 35.3 Const General: cooperative and no acute distress; No comfortable Nutritional Appearance: obese Orientation/consciousness: patient oriented x3 Resp Effort & Inspection: normal respiratory effort and able to speak in complete sentences Auscultation: clear to auscultation bilaterally Cardio Heart sounds: S1 normal heart sound present and S2 normal heart sound present Neuro General: patient oriented x3, gait normal and moves all extremities Psych Speech and movement: Normal speech and movement present Assessment & Plan Assessment & Plan (1) Nausea with vomiting, unspecified: Code(s): R11.2 - Nausea with vomiting, unspecified Qualifiers: Vomiting type: unspecified Qualified Code(s): R11.2 - Nausea with vomiting, unspecified Plan: Advised Patient to go the Emergency room. She has been Vomiting and unable to keep anything down for days. Pt understands and will drive to ED from here. (2) Acute respiratory disease: Code(s): J06.9 - Acute upper respiratory infection, unspecified Plan: Advised Patient to go the Emergency room. She has been Vomiting and unable to keep anything down for days. Pt understands and will drive to ED from here. Coding Level of Care Code Est Pt Level 4 (57115) Diagnoses Nausea and vomiting, unspecified vomiting type R11.2 Vomiting type: unspecified Acute respiratory disease J06.9 Time Spent (min) 20
--- OUTSIDE RECORDS SUMMARY | 2024-05-06 13:44 | XMS_ITS | Clinical Summary ---
Demographics Address [address] [place] [address] Home Phone Preferred Language en Marital Status Synagogue Affiliation Unknown Race White Ethnic Group Not or Lati no Author Organization [facility] Address [address] [place] [address] Care Team Providers Care Media Arts Professor Name Role Phone Unavailable Primary Care Provider Unavailabl e Social History Tobacco Use Types Packs/Day Years Used Date Smoking Tobacco: Never Assessed Sex and Gender Information Value Date Recorded Sex Assigned at Not on file Gender Identity Not on file Sexual Orientation Not on file Plan of Treatment Health Maintenance Due Date Last Done Comments Breast Cancer Screening 1981 DTaP,Tdap,and Td Vaccines (1 - Tdap) 2000 Hepatitis B Vaccines (1 of 3 - 19+ 3-dose series) 2000 Cervical Cancer Screening: P ap Smear 2002 Depression Screening 03/13/2022 HIV Screening 03/13/2022 Hepatitis C Screening 03/13/2022 Social Influencers of Health Screening 03/13/2022 COVID-19 Vaccine (2023-2 5 season) 2023 Influenza Vaccine (#1) 2023 HIB Vaccines Aged Out No longer eligi ble based on patient's age to complete this topic HPV Vaccines Aged Out No longer eligi ble based on patient's age to complete this topic Hepatitis A Vaccines Aged Out No long er eligible based on patient's age to complete this topic IPV Vaccines Aged Out No longer eligi ble based on patient's age to complete this topic MMR Vaccines Aged Out No longer eligi ble based on patient's age to complete this topic Meningococcal ACWY Vaccine Aged Out N o longer eligible based on patient's age to complete this topic Pneumococcal Vaccine: Pediat rics (0 to 5 Years) and At-Risk Patients (6 to 64 Years) Aged Out No longer eligible b ased on patient's age to complete this topic RSV Immunization Patients Un nohemi 20 months Aged Out No longer eligible b ased on patient's age to complete this topic Varicella Vaccines Aged Out No longer eligible based on patient's age to complete this topic Advance Directives Documents on File Type Date Recorded 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
== END 2024-05-06 11:31 | disposition home or self-care (01) ==
PROVIDERS: PCP Nurse Practitioner Family; Visit Provider Nurse Practitioner Family
DX: R11.2 Nausea with vomiting, unspecified (principal); J06.9 Acute upper respiratory infection, unspecified

== ENCOUNTER → 2024-05-06 09:21 | Outpatient (BNVA) | payer OTHER, SELFPAY | PROVIDERS: PCP Nurse Practitioner Family | DX: R11.2 Nausea with vomiting, unspecified (principal); J06.9 Acute upper respiratory infection, unspecified | CPT/HCPCS: 99212 ==

== ENCOUNTER 2024-05-06 11:58 | Emergency (ER) | payer OTHER, SELFPAY ==
--- NOTE | ~2024-05-06 | XR_ITS ---
CLINICAL HISTORY: pain 1 view abdomen Comparison: 10/06/2023 Findings: Normal bowel gas pattern. Moderate amount of stool noted. No free air or intramural air. No abnormal calcifications. No significant bony abnormalities. Surgical clips throughout midabdomen. Impression: Moderate stool without bowel distention. This document has been electronically signed by: Rosalio Ty MD on 05/06/2024 21:31:10
--- NOTE | ~2024-05-06 | XR_ITS ---
EXAMINATION: XR CHEST CLINICAL INFORMATION: SOB, chest pain COMPARISON: Chest 11/17/2023. TECHNIQUE: 2 views of the chest were obtained. FINDINGS: No significant abnormality is noted involving the heart, lungs, mediastinum, bony thorax or soft tissues. XR/XR chest 2V IMPRESSION: Unremarkable chest examination. Electronically signed by: Raj Orlando MD 05/06/2024 01:48 PM [facility]
--- NOTE | 2024-05-06 12:34 | ED_ITS ---
HPI - General Adult General Chief complaint: Nausea/Vomiting/Diarrhea Stated complaint: Vomiting Diarrhea Fever Time Seen by Provider: 05/06/24 20:00 Source: patient Limitations: no limitations History of Present Illness ED Provider: Lacey Villarreal PA-C HPI narrative: 43-year-old female with a history of chronic constipation, diabetes, morbid obesity, fatty liver disease, presents with nausea vomiting diarrhea x3 days. Patient states she has numerous sick contacts at home and at work, with the same symptoms. Patient states the diarrhea has started to subside, she now feels she is constipated. Associated generalized abdominal cramping. Denies fever. Denies recent travel, use of antibiotics or recent hospitalizations. Related Data Home Medications ?Medication ?Instructions ?Recorded ?Confirmed bupropion HCl 300 mg 24 hr tablet, 300 mg PO DAILY 09/08/23 04/26/24 extended release fluticasone propionate 50 1 spray intranasal BID PRN 02/02/24 04/26/24 mcg/actuation nasal allergies spray,suspension metoprolol tartrate 25 mg tablet 25 mg PO DAILY 02/02/24 04/26/24 sumatriptan succinate 100 mg 100 mg PO DAILY PRN migraine 02/02/24 04/26/24 tablet (Imitrex) headache Previous Rx's ?Medication ?Instructions ?Recorded blood sugar diagnostic (FreeStyle #100 ea 07/20/20 Lite Strips) blood-glucose meter (FreeStyle #1 ea 07/20/20 Lynndyl Lite kit) lancets 28 gauge (FreeStyle #100 ea 07/20/20 Lancets) acetaminophen 500 mg tablet 1,000 mg (2 x 500 mg) PO Q8H PRN 08/01/23 (Tylenol Extra Strength) back pain #60 tabs albuterol sulfate 90 mcg/actuation 2 puff inhalation Q4-6H PRN 09/19/23 aerosol inhaler shortness of breath or wheezing #1 ea fluticasone furoate 100 1 inh inhalation DAILY #30 ea 01/08/24 mcg/actuation blister powder for inhalation (Arnuity Ellipta) gabapentin 100 mg capsule 100 - 400 mg (1 - 4 x 100 mg) PO 01/16/24 BEDTIME 30 days #90 caps ondansetron 4 mg disintegrating 4 mg PO Q8H PRN nausea and 01/22/24 tablet vomiting 5 days #15 tabs lisinopril 5 mg tablet 5 mg PO DAILY #90 tabs 02/07/24 omeprazole 40 mg capsule,delayed 40 mg PO BID #180 caps 02/13/24 release hydrocortisone 2.5 % topical cream 1 appl LA BEDTIME 14 days #30 grams 02/15/24 with perineal applicator (Procto-Med HC) atorvastatin 10 mg tablet 10 mg PO BEDTIME #90 tabs 03/18/24 cyclobenzaprine 10 mg tablet 10 mg PO Q8H #20 tabs 03/22/24 docusate sodium 100 mg capsule 100 mg PO BID constipation 30 days 04/12/24 (Colace) #60 caps lidocaine 5 % topical patch 1 patch topical DAILY PRN Pain #30 04/12/24 ea meloxicam 15 mg tablet 15 mg PO DAILY pain #30 tabs 05/06/24 metoclopramide HCl 10 mg tablet 10 mg PO Q6H PRN nausea and 05/06/24 (Reglan) vomiting #12 tabs Allergies Allergy/AdvReac Type Severity Reaction Status Date / Time hydrocodone [From VICODIN] Allergy Mild HIVES Verified 05/06/24 12:38 oxycodone [From PERCOCET] Allergy Mild HIVES Verified 05/06/24 12:38 azithromycin [AZITHROMYCIN] Allergy Unknown NAUSEA & Verified 05/06/24 12:38 VOMITING erythromycin base Allergy Unknown NAUSEA & Verified 05/06/24 12:38 [From ERYTHROCIN] VOMITING metformin AdvReac Mild Gastrointestinal Uncoded 04/29/24 09:19 Upset Review of Systems 2 Review of Systems: Yes all other systems are reviewed and are negative Constitutional: Constitutional: Denies fatigue, Denies fever(s) and Reports malaise Cardiovascular: Cardiovascular: Denies chest pain Gastrointestinal: Gastrointestinal: Reports abdominal pain, Reports constipation, Reports diarrhea, Reports nausea and Reports vomiting Endocrine: Endocrine: Denies fatigue PMFSH Past Medical History Attestation statement: The following information was validated with the patient. Medical History (Updated 05/06/24 @ 23:56 by KAYE Virgen) Acute respiratory disease Nausea with vomiting, unspecified Nephrolithiasis Periodic limb movements of sleep Anemia Asthma Sleep apnea Migraine Sinusitis Breast pain, left Hypertension Sleep apnea Bipolar 1 disorder Depression Anxiety delivery delivered Diabetes Sciatica Kidney infection Kidney stones HTN (hypertension) Fibromyalgia Lupus Surgical History (Updated 04/29/24 @ 09:15 by CLAUDIA Mcgregor) Hx of colonoscopy History of esophagogastroduodenoscopy (EGD) H/O section H/O: hysterectomy Family History Family History Maternal Grandmother HTN (hypertension) Diabetes Cancer Mother Ovarian cancer Other FH: mental illness Substance use Social History Social History Housing: Apartment Are you a primary care manager cna to a significant other at home: No Do you presently have visiting nurse or other home services: No Alcohol intake: never Patient Tobacco Use Status: Current everyday Tobacco user Tobacco use type: Smokeless Tobacco e-Cigarette/Vaping Use: Currently Using Substance Use Type: Marijuana Advance Directives: No Advance Directives Information Provided: No Advance Directives Date on File: 02/02/24 service: No Current occupational status: employed 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 Current occupational exposures/hazards: No Cognitive needs: No Hearing needs: No Vision needs: Yes (glasses) Physical Exam ED Vital Signs: Vital Signs - 24 hr 05/06/24 12:35 05/07/24 00:36 05/07/24 00:37 Temperature 98.5 F 97.9 F 97.9 F Pulse Rate 86 82 82 Respiratory Rate 18 14 16 Blood Pressure 133/93 H 153/85 H 153/85 H Pulse Oximetry 97 98 98 Oxygen Delivery Method Room Air Room Air Room Air BMI result Body Mass Index 35.2 Const Other: Alert, appears older than stated age Orientation/consciousness: patient oriented x3 Resp Effort & Inspection: normal respiratory effort Cardio Other: Normal peripheral perfusion GI Other: Abdomen is soft, nondistended obese nontender no guarding Skin Other: Warm dry no rash Neuro General: patient oriented x3, no focal motor deficits and CN's II-XI intact bilaterally Psych Other: Cooperative Course Course Course Narrative: RME performed by Ruthy Rendon PA-C. Patient is a 43 year old assigned female at presenting to the emergency department with nausea, vomiting, diarrhea, and fever. Patient states that she has been feeling generally unwell over the last few days. Detailed physical exam and review of systems are deferred to the care clinician. Labs and swabs ordered. Patient placed back in the waiting room pending room availability and results. Medications Administered Discontinued Medications Generic Name Dose Route Start Last Admin Trade Name Cong PRN Reason Stop Dose Admin Sodium Chloride 1,000 mls @ 999 mls/hr 05/06/24 20:30 05/06/24 23:00 Ns IV 05/06/24 21:30 Infused .Q1H1M ISAIAH Infusion Metoclopramide HCl 10 mg 05/06/24 20:17 05/06/24 21:56 Metoclopramide Hcl 10 Mg/2 Ml Vial IVPUSH 05/06/24 20:18 10 mg ONCE ONE Administration Medical Decision Making Medical Decision Making MDM Narrative: 43-year-old female with a history of chronic constipation, diabetes, morbid obesity, fatty liver disease, presents with nausea vomiting diarrhea x3 days. Patient states she has numerous sick contacts at home and at work, with the same symptoms. Patient states the diarrhea has started to subside, she now feels she is constipated. Associated generalized abdominal cramping. Denies fever. Denies recent travel, use of antibiotics or recent hospitalizations. Problem: Chronic constipation, diabetes, morbid obesity History: Per patient I have considered the following differential diagnoses: Viral gastroenteritis, C diff, traveler's diarrhea, constipation, bowel obstruction, Plan: From patient's report, it sounds as if she has had viral gastroenteritis given numerous sick contacts with same symptoms. She has no risk factors for C diff or traveler's diarrhea. Her abdominal exam was nonfocal, she does not require advanced imaging. Diarrhea now resolved, she now feel she is constipated, we will obtain a KUB to assess stool burden. Thought about SBO, however she does not have obstructive symptoms. Screening labs including viral panel were already obtained from triage. We will be giving IV fluid and Reglan. Labs: No leukocytosis, not anemic, no electrolyte abnormality viral panel negative KUB:Findings: Normal bowel gas pattern. Moderate amount of stool noted. No free air or intramural air. No abnormal calcifications. No significant bony abnormalities. Surgical clips throughout midabdomen. Impression: Moderate stool without bowel distention. This document has been electronically signed by: Rosalio Ty MD on 05/06/2024 21:31:10 Lab Data 05/06/24 15:28 05/06/24 15:28 Labs: Lab Results 01/27/25 01/27/25 Range/Units 15:28 23:05 WBC 9.5 (4.8-10.8) X10*3/uL RBC 5.10 (4.20-5.50) X10*6/uL Hgb 15.2 (12.0-16.0) g/dl Hct 43.5 (37.0-47.0) % MCV 85.3 (80.0-98.0) fL MCH 29.8 (27.0-33.0) pg MCHC 34.9 (31.0-35.0) g/dl RDW 13.3 (11.0-16.0) % Plt Count 295 (160-400) X10*3/uL MPV 9.3 L (9.4-12.3) fL Immature Gran % (Auto) 0.5 H (0.0-0.4) % Neut % (Auto) 67.2 (45-73) % Lymph % (Auto) 24.2 (20-40) % [place] % (Auto) 6.3 (2-11) % Eos % (Auto) 1.6 (0-4) % Baso % (Auto) 0.2 (0-2) % Lymph # (Auto) 2.3 (1.2-4.9) X10*3/uL [place] # (Auto) 0.6 (0.1-1.2) X10*3/uL Eos # (Auto) 0.2 (0.0-0.4) X10*3/uL Baso # (Auto) 0.0 (0.0-0.2) X10*3/uL Abs Immat Gran (auto) 0.05 H (0.00-0.03) X10*3/uL Absolute Neuts (auto) 6.4 (2.0-8.3) x10*3/uL Absolute Nucleated RBC 0.000 (0.0-0.012) X10*3/uL Nucleated RBC % (auto) 0.0 (0.0-0.2) /100WBC Sodium 140 (135-145) mmol/L Potassium 3.6 (3.3-5.1) mmol/L Chloride 107 (96-108) mmol/L Carbon Dioxide 24 (22-29) mmol/L Anion Gap 11 L (12-20) BUN 17 H (9-16) mg/dL Creatinine 0.75 (0.5-1.4) mg/dL Estim Creat Clear Calc 104.1 Estimated GFR > 60 Random Glucose 113 (60-115) mg/dL Calcium 9.2 (8.4-10.2) mg/dL Magnesium 2.1 (1.6-2.6) mg/dL Total Bilirubin 0.3 (0.0-1.0) mg/dL AST 38 H (5-31) U/L ALT 42 H (0-31) U/L Alkaline Phosphatase 107 (39-117) U/L Troponin I High Sens < 2.7 (<3.5-17.0) ng/L Total Protein 7.6 (6.5-8.0) g/dL Albumin 3.9 (3.5-5.0) g/dL Urine Color Yellow Urine Appearance Clear Urine pH 5.5 (5.0-9.0) Ur Specific [place] 1.015 (1.005-1.025) Urine Protein Negative (Neg-Trace) mg/dL Urine Glucose (UA) Negative (Negative) mg/dL Urine Ketones Negative (Negative) mg/dL Urine Blood Negative (Negative) Urine Nitrite Negative (Negative) Ur Leukocyte Esterase Negative (Negative) Influenza Type A (PCR) NEGATIVE (Negative) Influenza Type B (PCR) NEGATIVE (Negative) RSV RNA Qual (PCR) NEGATIVE (Negative) SARS-CoV-2 RNA (RT-PCR) NEGATIVE (Negative) Discharge Plan Discharge Clinical Impression: Acute viral syndrome, Constipation Patient Disposition: Home, Self-Care Instructions: Constipation (ED), Viral Syndrome (ED) Additional Instructions: You likely have a virus causing your symptoms given you have numerous sick contacts with similar symptoms. You incidentally were also found to be constipated. See home care instructions. Use the Reglan as needed for nausea vomiting. For the constipation, you should be using [id number] Colace, this is a stool softener, 1 to 2 times a day. In addition you need to be using [id number] MiraLax 2 to 3 times a day, until your bowel habits regulate. Follow up with your primary care provider as needed. Prescriptions: New metoclopramide HCl [Reglan] 10 mg tablet 10 mg PO Q6H PRN (Reason: nausea and vomiting) Qty: 12 0RF No Action Arnuity Ellipta 100 mcg/actuation blister with device 1 inh inhalation DAILY Qty: 30 6RF lisinopril 5 mg tablet 5 mg PO DAILY Qty: 90 0RF atorvastatin 10 mg tablet 10 mg PO BEDTIME Qty: 90 0RF meloxicam 15 mg tablet 15 mg PO DAILY Qty: 30 0RF Rx Instructions: Take it with food and full glass of water (DME) blood-glucose meter [FreeStyle Lynndyl Lite] Kit See Rx Instructions .ROUTE .MEDSUPPLY Qty: 1 0RF Rx Instructions: As directed (DME) FreeStyle Lite Strips Strip See Rx Instructions .ROUTE .MEDSUPPLY Qty: 100 0RF Rx Instructions: As directed (DME) lancets [FreeStyle Lancets] 28 gauge misc See Rx Instructions .ROUTE .MEDSUPPLY Qty: 100 0RF Rx Instructions: As directed hydrocortisone [Procto-Med HC] 2.5 % cream with perineal applicator 1 appl LA BEDTIME 14 Days Qty: 30 0RF Rx Instructions: Apply daily at bedtime sumatriptan succinate [Imitrex] 100 mg tablet 100 mg PO DAILY PRN (Reason: migraine headache) Rx Instructions: 100 mg orally PRN; fluticasone propionate 50 mcg/actuation spray,suspension 1 spray intranasal BID PRN (Reason: allergies) Rx Instructions: administer into each nostril metoprolol tartrate 25 mg tablet 25 mg PO DAILY acetaminophen [Tylenol Extra Strength] 500 mg tablet 1,000 mg PO Q8H PRN (Reason: back pain) Qty: 60 0RF cyclobenzaprine 10 mg tablet 10 mg PO Q8H Qty: 20 0RF bupropion HCl 300 mg tablet extended release 24 hr 300 mg PO DAILY albuterol sulfate 90 mcg/actuation HFA aerosol inhaler 2 puff inhalation Q4-6H PRN (Reason: shortness of breath or wheezing) Qty: 1 3RF ondansetron 4 mg tablet,disintegrating 4 mg PO Q8H PRN (Reason: nausea and vomiting) 5 Days Qty: 15 12RF docusate sodium [Colace] 100 mg capsule 100 mg PO BID 30 Days Qty: 60 3RF lidocaine 5 % adhesive patch,medicated 1 patch topical DAILY PRN (Reason: Pain) Qty: 30 0RF Rx Instructions: leave on most painful area for up to 12 hrs gabapentin 100 mg capsule 100 - 400 mg PO BEDTIME 30 Days Qty: 90 3RF omeprazole 40 mg capsule,delayed release(DR/EC) 40 mg PO BID Qty: 180 0RF Stand Alone Forms: Work/School Release Interventions: ED Discharge Assessment Last Done: 05/07/24 00:37 Discharge Date/Time: 05/07/24 00:37 Print Language: American
[2024-05-06 12:35] VITALS: BP 133/93; PULSE 86; RESP 18; TEMP 36.9; O2SAT 97; BMI 35.2
--- NOTE | 2024-05-06 12:36 | ECG_ITS ---
Test Reason : CP Blood Pressure : */* mmHG Vent. Rate : 78 BPM Atrial Rate : 78 BPM P-R Int : 172 ms QRS Dur : 76 ms QT Int : 386 ms P-R-T Axes : 37 20 41 degrees QTcB Int : 440 ms Normal sinus rhythm Cannot rule out Anterior infarct , age undetermined - could be from body habitus and lead placement Abnormal ECG When compared with ECG of 21-Mar-2024 23:32, No significant change was found Referred By: Ruthy Rendon Electronically Signed By: MIRZA BECERRA
[2024-05-06 15:32] LABS: MANUAL DIFF FLAG NO
[2024-05-06 15:35] LABS: Basophils Percent Auto 0.2 % (0-2); Eosinophils Absolute Auto 0.2 X10*3/uL (0.0-0.4); Eosinophils Percent Auto 1.6 % (0-4); Hematocrit 43.5 % (37.0-47.0); Hemoglobin 15.2 g/dl (12.0-16.0); Imm Gran Abs Auto 0.05 X10*3/uL (0.00-0.03); Imm Gran Pct Auto 0.5 % (0.0-0.4); Lymphocytes Absolute Auto 2.3 X10*3/uL (1.2-4.9); Lymphocytes Percent Auto 24.2 % (20-40); Mean Corpuscular HGB Conc 34.9 g/dl (31.0-35.0); Mean Corpuscular Hemoglobin 29.8 pg (27.0-33.0); Mean Corpuscular Volume 85.3 fL (80.0-98.0); Mean Platelet Volume 9.3 fL (9.4-12.3); Monocytes Absolute Auto 0.6 X10*3/uL (0.1-1.2); Monocytes Percent Auto 6.3 % (2-11); Neutrophils Absolute Auto 6.4 x10*3/uL (2.0-8.3); Neutrophils Percent Auto 67.2 % (45-73); Platelet Count 295 X10*3/uL (160-400); Red Cell Distribution Width 13.3 % (11.0-16.0); White Blood Count 9.5 X10*3/uL (4.8-10.8)
[2024-05-06 15:54] LABS: Troponin-I High Sensitivity < 2.7 ng/L (<3.5-17.0)
[2024-05-06 15:58] LABS: Alanine Aminotransferase 42 U/L (0-31); Albumin Level 3.9 g/dL (3.5-5.0); Alkaline Phosphatase 107 U/L (39-117); Anion Gap 11 (12-20); Aspartate Amino Transferase 38 U/L (5-31); Bilirubin Total 0.3 mg/dL (0.0-1.0); Blood Urea Nitrogen 17 mg/dL (9-16); Calcium 9.2 mg/dL (8.4-10.2); Carbon Dioxide 24 mmol/L (22-29); Chloride 107 mmol/L (96-108); Creatinine Clr Calc Pharmacy 104.1; Estimated Glomerular Filt Rate > 60; Glucose Random 113 mg/dL (60-115); Magnesium 2.1 mg/dL (1.6-2.6); Potassium 3.6 mmol/L (3.3-5.1); Sodium 140 mmol/L (135-145); Total Protein 7.6 g/dL (6.5-8.0)
[2024-05-06 16:28] LABS: Influenza A PCR NEGATIVE (Negative); Influenza B PCR NEGATIVE (Negative); Resp Syncy Virus RNA Qual PCR NEGATIVE (Negative); SARS COV2 PCR INHOUSE NEGATIVE (Negative)
--- OUTSIDE RECORDS SUMMARY | 2024-05-06 20:13 | XMS_ITS | Clinical Summary ---
Demographics Address [address] [place] [address] Home Phone Preferred Language en Marital Status Yarsanism Affiliation Unknown Race White Ethnic Group Not or Lati no Author Organization [facility] Address [address] [place] [address] Care Team Providers Care Lead Programmer Analyst Name Role Phone Unavailable Primary Care Provider [...] Documents on File Type Date Recorded Patient Voice Teacher Expl anation Health Care Decision (hx) 07/09/2016 AD JOHNNIE DIRECTIVE
[2024-05-06] MEDS: Metoclopramide HCl 10 MG/2 ML VIAL IVPUSH (21:56)
[2024-05-06] MEDS: 0.9 % Sodium Chloride 1,000 ML 999 ML IV (21:56)
[2024-05-06 23:41] LABS: Color Urine Yellow; Glucose Urine UA Negative (Negative); Leukocyte Esterase Urine Negative (Negative); Nitrite Urine Negative (Negative); PH 5.5 (5.0-9.0); Specific Gravity - Urine 1.015 (1.005-1.025); Urine Blood Negative (Negative); Urine Ketones Negative (Negative); Urine Protein Negative (Neg-Trace)
[2024-05-06 23:42] LABS: Appearance Urine Clear
[2024-05-07 00:36] VITALS: BP 153/85; PULSE 82; RESP 14; TEMP 36.6; O2SAT 98
[2024-05-07 00:37] VITALS: BP 153/85; PULSE 82; RESP 16; TEMP 36.6; O2SAT 98
== END 2024-05-07 00:37 | disposition home or self-care (01) ==
PROVIDERS: Physician Assistant Medical; Emergency Provider Emergency Medicine; PCP Nurse Practitioner Family
DX: B34.9 Viral infection, unspecified (principal); K59.00 Constipation, unspecified; R53.81 Other malaise; R11.2 Nausea with vomiting, unspecified; E11.9 Type 2 diabetes mellitus without complications; I10 Essential (primary) hypertension; J45.909 Unspecified asthma, uncomplicated; F17.200 Nicotine dependence, unspecified, uncomplicated; Z03.818 Encounter for observation for suspected exposure to other biological agents ruled out; Z79.899 Other long term (current) drug therapy
CPT/HCPCS: 0241U; 36415; 71046; 74018; 80053; 81003; 83735; 84484; 85025; 93005; 96361; 96374; 99284; J2765

== ENCOUNTER → 2024-05-06 12:36 | Outpatient (BNV) | payer OTHER, SELFPAY | PROVIDERS: Visit Provider Radiology Diagnostic Radiology | DX: R06.02 Shortness of breath (principal); R07.9 Chest pain, unspecified; K56.41 Fecal impaction | CPT/HCPCS: 71046; 74018 ==

== ENCOUNTER → 2024-05-06 12:36 | Outpatient (BNV) | payer OTHER, SELFPAY | PROVIDERS: Visit Provider Internal Medicine | DX: R94.31 Abnormal electrocardiogram [ECG] [EKG] (principal) | CPT/HCPCS: 93010 ==

== ENCOUNTER 2024-05-14 14:02 | Outpatient (AMB) | payer OTHER, SELFPAY ==
--- NOTE | 2024-05-14 14:04 | A.OFFVIS_ITS ---
Intake Visit Reasons: Nonobstructing bilateral punctate nephrolithiasis Intake Note: Patient is present for NONOBSTRUCTING BILATERAL PUNCTATE NEPHROLITHIASIS Urology Medication:NONE Antibiotic Allergy:AZITHROMYCIN,ERYTHROMYCIN,METFORMIN Blood Thinner:NONE Retail Service Representative Required: No Allergies hydrocodone [From VICODIN] Allergy (Mild, Verified 05/14/24 14:05) HIVES oxycodone [From PERCOCET] Allergy (Mild, Verified 05/14/24 14:05) HIVES azithromycin [AZITHROMYCIN] Allergy (Unknown, Verified 05/14/24 14:05) NAUSEA & VOMITING erythromycin base [From ERYTHROCIN] Allergy (Unknown, Verified 05/14/24 14:05) NAUSEA & VOMITING metformin Adverse Reaction (Mild, Uncoded 05/14/24 14:05) Gastrointestinal Upset HPI Comments Details: Linda is a pleasant female. She is a patient of . She is seen for the follow-up - nephrolithiasis Nephrolithiasis No prior history Imaging shows small bilateral stones Discussed fluid intake with lemon water - encouraged 2.5 L a day for hyper filtration Plan for Uro risk Will need modifications to diet based on results Significant cannabis user Follow-up nurse-practitioner [facility] Medical History (Updated 05/08/24 @ 00:00 by Maximus Gay) Acute respiratory disease Nausea with vomiting, unspecified Nephrolithiasis Periodic limb movements of sleep Anemia Asthma Sleep apnea Migraine Sinusitis Breast pain, left Hypertension Sleep apnea Bipolar 1 disorder Depression Anxiety delivery delivered Diabetes Sciatica Kidney infection Kidney stones HTN (hypertension) Fibromyalgia Lupus Surgical History (Updated 04/29/24 @ 09:15 by CLAUDIA Mcgregor) Hx of colonoscopy History of esophagogastroduodenoscopy (EGD) H/O section H/O: hysterectomy Family History Maternal Grandmother HTN (hypertension) Diabetes Cancer Mother Ovarian cancer Other FH: mental illness Substance use Social History Housing: Apartment Are you a primary healthcare consultant to a significant other at home: No Do you presently have visiting nurse or other home services: No Alcohol intake: never Patient Tobacco Use Status: Current everyday Tobacco user Tobacco use type: Smokeless Tobacco e-Cigarette/Vaping Use: Currently Using Substance Use Type: Marijuana Advance Directives Date on File: 02/02/24 service: No Current occupational status: employed 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 Current occupational exposures/hazards: No Cognitive needs: No Hearing needs: No Vision needs: Yes (glasses) Review of Systems Const Denies chills and Denies fever(s) Card Reports no additional complaints and Denies syncope Resp Denies cough GI Denies abdominal pain and Denies heartburn Reports as per HPI and Denies change in libido Neuro Denies syncope Psych Denies change in libido Endo Denies change in libido Physical Exam Const General: cooperative, healthy appearing, comfortable and no acute distress Orientation/consciousness: patient oriented x3 HEENT Face and sinus: Yes normal facial exam Mouth: moist mucous membranes Neck Neck: Yes normal visual inspection, Yes full ROM and Yes trachea midline Chest Chest palpation & inspection: normal inspection of the chest Resp Effort & Inspection: normal respiratory effort, able to speak in complete sentences and no respiratory distress GI Inspection: Yes normal to inspection Back/Spine/Pelvis Cervical Spine: normal cervical lordosis Thoracic/Lumbar Spine: thoracic and lumbar spine normal to inspection Skin General skin exam: no rashes or lesions noted Neuro General: patient oriented x3, gait normal, tone normal and moves all extremities Extrem General: Yes normal to inspection and Yes capillary refill normal Assessment & Plan Assessment & Plan (1) Nephrolithiasis: Code(s): N20.0 - Calculus of kidney Category: Medical Plan Complete stone evaluation with Uro risk for dietary modification Orders: Orders URORISK Today N20.0 - Calculus of kidney Patient Instructions: This note is constructed using voice recognition software. While every effort has been made to ensure accuracy furniture mover helper errors may have been included. Imaging studies, laboratory and physical exam results were discussed and reviewed in detail. No major barriers to patient understanding were identified. An opportunity to ask questions regarding the treatment plan was provided. All questions were answered. The patient expressed understanding and agreement with the above treatment plan. The patient is aware they should contact our office by phone for worsening of their current condition or the appearance of new urologic symptoms. Compliance is encouraged with any medications and followup testing that is ordered. It is a privilege to participate in the urologic care of your patient. If you have any questions or concerns regarding treatment for the above conditions, or other urologic issues, please do not hesitate to contact me. The office yohana nguyen contact is [phone]. Sincerely, Dr Tay Hi MD, [facility] - Urology Compassionate Specialist Care for the Genitourinary System Coding Level of Care Code New Pt Level 3 (23461) Diagnoses Nephrolithiasis N20.0
--- OUTSIDE RECORDS SUMMARY | 2024-05-14 14:11 | XMS_ITS | Clinical Summary ---
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
== END 2024-05-14 14:45 | disposition home or self-care (01) ==
PROVIDERS: PCP Nurse Practitioner Family; Visit Provider Urology
DX: N20.0 Calculus of kidney (principal)
CPT/HCPCS: 99203

== ENCOUNTER → 2024-05-14 14:02 | Outpatient (BNVA) | payer OTHER, SELFPAY | PROVIDERS: PCP Nurse Practitioner Family; Visit Provider Urology | DX: N20.0 Calculus of kidney (principal) | CPT/HCPCS: 99202 ==

== ENCOUNTER 2024-06-04 09:51 | Outpatient (REF) | payer OTHER, SELFPAY ==
[2024-06-04 10:54] LABS: Hematocrit 39.3 % (37.0-47.0); Hemoglobin 13.4 g/dl (12.0-16.0); Mean Corpuscular HGB Conc 34.1 g/dl (31.0-35.0); Mean Corpuscular Hemoglobin 29.6 pg (27.0-33.0); Mean Corpuscular Volume 86.8 fL (80.0-98.0); Mean Platelet Volume 9.9 fL (9.4-12.3); Platelet Count 265 X10*3/uL (160-400); Red Blood Count 4.53 X10*6/uL (4.20-5.50); White Blood Count 6.9 X10*3/uL (4.8-10.8)
[2024-06-04 11:01] LABS: INTERNATIONAL NORM RATIO 0.9 (0.9-1.1); Prothrombin Time 10.3 SEC (10.9-12.4)
[2024-06-04 11:04] LABS: Estimated Average Glucose 154 mg/dL; Hemoglobin A1C 189.1166 umol/L; Total Hemoglobin (HGBA1C) 3544.5729 umol/L
--- OUTSIDE RECORDS SUMMARY | 2024-06-04 11:19 | XMS_ITS | Clinical Summary ---
Demographics Address [address] [place] [address] [address] [place] [address] Home Phone Preferred Language en Marital Status Samaritan Affiliation Unknown Race White Ethnic Group Not or Lati no Author Organization [facility] Address [address] [place] [address] Care Team Providers Care Driver Recruiter Name Role Phone Unavailable Primary Care Provider Unavailabl e Social History Tobacco Use Types Packs/Day Years Used Date Smoking Tobacco: Never Assessed Comments Unknown Sex and Gender Information Value Date Recorded Sex Assigned at Not on file Legal Sex Female 1:26 AM EST Gender Identity Not on file Sexual Orientation [...] patient's age to complete this topic Meningococcal B Vacine Aged Out No lo nger eligible based on patient's age to complete [...] Documents on File Type Date Recorded 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
[2024-06-04 11:39] LABS: Alanine Aminotransferase 36 U/L (0-31); Albumin Level 3.5 g/dL (3.5-5.0); Alkaline Phosphatase 122 U/L (39-117); Aspartate Amino Transferase 27 U/L (5-31); Bilirubin Direct < 0.2 mg/dL (0.0-0.5); Bilirubin Total 0.2 mg/dL (0.0-1.0); Iron 56 mcg/dL (30-160); Percent Iron Saturation 22 % (15-50); Total Iron Binding Capacity 252 mcg/dL (228-428); Total Protein 6.8 g/dL (6.5-8.0); Unsaturated Iron Binding 196 ug/dL
[2024-06-04 11:40] LABS: Iron 56 mcg/dL (30-160); Percent Iron Saturation 22 % (15-50); Total Iron Binding Capacity 249 mcg/dL (228-428); Unsaturated Iron Binding 193 ug/dL
[2024-06-04 11:45] LABS: Hepatitis A Antibody IgG REACTIVE (Nonreactive); ~Hepatitis A Antibody IgG 2.45 S/CO (0.00-0.99)
[2024-06-04 11:47] LABS: HBS Num1 0.77 mIU/mL (0-7.99); HBc Num1 0.11 S/CO (0.00-0.79); HIV AB/AG Nonreactive (Nonreactive); HIV Num 1 0.09 S/CO (0.00-0.99); Hepatitis B Core Antibody Nonreactive (Nonreactive); ~HepC Num1 0.15 S/CO (0.00-0.79); ~Hepatitis B Surface Antibody NONREACTIVE (Nonreactive); ~Hepatitis C Antibody Nonreactive (Nonreactive)
[2024-06-04 11:49] LABS: Alanine Aminotransferase 35 U/L (0-31); Albumin Level 3.6 g/dL (3.5-5.0); Alkaline Phosphatase 122 U/L (39-117); Anion Gap 10 (12-20); Aspartate Amino Transferase 27 U/L (5-31); Bilirubin Total 0.2 mg/dL (0.0-1.0); Blood Urea Nitrogen 13 mg/dL (9-16); Calcium 9.1 mg/dL (8.4-10.2); Carbon Dioxide 23 mmol/L (22-29); Chloride 109 mmol/L (96-108); Cholesterol 140 mg/dL (<200); Estimated Glomerular Filt Rate > 60; Glucose Fasting 160 mg/dL (60-99); HDL Cholesterol 35 mg/dL (>40); Iron 56 mcg/dL (30-160); LDL Cholesterol Calculated 91 mg/dL (<100); Magnesium 1.8 mg/dL (1.6-2.6); Percent Iron Saturation 23 % (15-50); Potassium 4.1 mmol/L (3.3-5.1); Sodium 138 mmol/L (135-145); Total Iron Binding Capacity 246 mcg/dL (228-428); Total Protein 6.8 g/dL (6.5-8.0); Triglycerides 70 mg/dL (<150); Unsaturated Iron Binding 190 ug/dL
[2024-06-04 11:50] LABS: Ferritin 141 ng/mL (10-250)
[2024-06-04 11:55] LABS: TSH reflex Free T4 1.78 uIU/mL (0.32-4.0); Vitamin D 25-OH Total 13.7 ng/mL (>30)
[2024-06-04 11:58] LABS: Vitamin B12 355 pg/mL (200-900)
[2024-06-04 12:02] LABS: Ferritin 141 ng/mL (10-250)
[2024-06-04 12:10] LABS: Creatinine Urine 81.19 mg/dL; Microalbum/Creatinine Ratio Ur 43.1 ug/mg cr (<30)
[2024-06-05 09:43] LABS: Immunoglobulin A 305 mg/dL (47-310); Immunoglobulin G 999 mg/dL (600-1640)
[2024-06-05 10:38] LABS: Alpha 1 Anti-trypsin 117 mg/dL (83-199); Ceruloplasmin 29 mg/dL (14-48)
[2024-06-05 16:43] LABS: Homocysteine 7.3 umol/L (<10.4)
[2024-06-05 20:23] LABS: Immunoglobulin E 30 kU/L (<OR=114)
[2024-06-05 22:08] LABS: Transglutaminase IgA <1.0 U/mL
[2024-06-07 02:43] LABS: Methylmalonic Acid 104 nmol/L (55-335)
[2024-06-07 10:49] LABS: Mitochondrial Antibodies NEGATIVE (NEGATIVE)
[2024-06-07 12:38] LABS: Anti Nuclear Antibody Screen NEGATIVE (NEGATIVE)
[2024-06-08 09:54] LABS: Liver Kidney Microsomal Ab <=20.0 U (<=20.0)
[2024-06-08 10:43] LABS: Smooth Muscle Antibody <20 U (<20)
[2024-06-12 13:19] LABS: Phosphatidylethanol 16:0-18:1 NEGATIVE
[2024-06-12 13:20] LABS: Phosphatidylethanol 16:0-18:2 NEGATIVE
== END 2024-06-04 09:52 | disposition home or self-care (01) ==
LOC: HO.LAB 09:51
PROVIDERS: Nurse Practitioner Family; Absent Provider Urology; PCP Nurse Practitioner Family; Referring Provider Internal Medicine; Visit Provider Nurse Practitioner Family
DX: E11.8 Type 2 diabetes mellitus with unspecified complications (principal); E55.9 Vitamin D deficiency, unspecified; N20.0 Calculus of kidney; I25.10 Atherosclerotic heart disease of native coronary artery without angina pectoris; I15.2 Hypertension secondary to endocrine disorders; E66.812 Obesity, class 2; E66.01 Morbid (severe) obesity due to excess calories; Z68.36 Body mass index [BMI] 36.0-36.9, adult; F12.90 Cannabis use, unspecified, uncomplicated; R79.89 Other specified abnormal findings of blood chemistry; D64.9 Anemia, unspecified; R25.2 Cramp and spasm
CPT/HCPCS: 36415; 80053; 80061; 80076; 80321; 82043; 82103; 82248; 82306; 82390; 82570; 82607; 82728; 82746; 82784; 82785; 83036; 83090; 83540; 83735; 83921; 84443; 85027; 85610; 86015; 86038; 86364; 86376; 86381; 86704; 86706; 86708; 86803; 87389; 96127; 99212

== ENCOUNTER 2024-06-04 12:25 | Outpatient (AMB) | payer OTHER, SELFPAY ==
--- NOTE | 2024-06-04 12:39 | MHC.PC.OV ---
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 Required: No Allergies hydrocodone [From VICODIN] Allergy (Mild, Verified 06/04/24 13:03) HIVES oxycodone [From PERCOCET] Allergy (Mild, Verified 06/04/24 13:03) HIVES azithromycin [AZITHROMYCIN] Allergy (Unknown, Verified 06/04/24 13:03) NAUSEA & VOMITING erythromycin base [From ERYTHROCIN] Allergy (Unknown, Verified 06/04/24 13:03) NAUSEA & VOMITING metformin Adverse Reaction (Mild, Uncoded 06/04/24 12:40) Gastrointestinal Upset Medication List - Last Reconciled 06/04/24 by DYLON Travis- acetaminophen (Tylenol Extra Strength) 1,000 mg (2 x 500 mg) PO Q8H PRN albuterol sulfate 90 mcg/actuation 2 puffs inhalation Q4-6H PRN atorvastatin 10 mg PO BEDTIME blood sugar diagnostic (FreeStyle Lite Strips) As directed blood-glucose meter (FreeStyle Floweree Lite kit) As directed bupropion HCl XL 300 mg PO DAILY cyclobenzaprine 10 mg PO Q8H docusate sodium (Colace) 100 mg PO BID 30 days fluticasone furoate 100 mcg/actuation (Arnuity Ellipta) 1 inh inhalation DAILY fluticasone propionate 50 mcg/actuation 1 spray intranasal BID PRN gabapentin 100 - 400 mg (1 - 4 x 100 mg) PO BEDTIME 30 days hydrocortisone 2.5% (Procto-Med HC) 1 appl AZ BEDTIME 14 days lancets (FreeStyle Lancets) As directed lidocaine 5% 1 patch topical DAILY PRN lisinopril 5 mg PO DAILY meloxicam 15 mg PO DAILY metoclopramide HCl (Reglan) 10 mg PO Q6H PRN metoprolol tartrate 25 mg PO DAILY omeprazole 40 mg PO BID ondansetron 4 mg PO Q8H PRN 5 days sumatriptan succinate (Imitrex) 100 mg PO DAILY PRN Tobacco use date assessed: 06/04/24 Dental Screening Dental Screen Date: 06/04/24 Did you have a dental visit in the last 12 months?: Yes Did you have a dental problem in the last 6 months where you did not have access to dental care?: No Was dental information given to patient?: Patient has dentist HPI HPI Comments History of Present Illness Details 43-year-old female with diabetes 2, asthma, anxiety, MDD, constipation, bipolar 1 disorder, sleep apnea, renal stones, PTSD, lupus, hypertension, fibromyalgia, 3.6 cm hypodense lesion in the liver at the junction of the right and left hepatic lobes with thin rim calcification along the right lateral wall of the lesion, CAD, Small fat-containing anterior midline hernia , diverticulosis, fatty liver, splenomegaly, osteoarthritis multiple joints, vitamin d def Status post hysterectomy, 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 RTO 6 mo Pain Mgmt Sleep Medicine Counselor/Nurse [facility] Nutrition first appt 06/10/24 - The patient is a 43-year-old female presenting with close interim follow-up for type 2 diabetes and chronic abdominal pain. She has managed her diabetes with lifestyle and diet changes, showing some improvement in A1c. Blood sugar log reviewed from home 100-177mg/dl. - Continues to experience chronic abdominal pain despite consultation with a translator/interpreter, and she has nephrolithiasis being managed by urology. Wt Stable. No more vomiting. Did have norovirus, went to ED for this, work up reviewed. her wt loss/vomiting was likely r/t metformin. - She experiences severe low back pain, limiting her mobility. Physical therapy has been started, but she faces difficulty obtaining MRI due to insurance denial. - Vitamin D deficiency at 13.7 ng/mL requires supplementation, causing fatigue and mood changes. - Chronic hyperlipidemia is managed with atorvastatin, with emphasis placed on maintaining heart health. Exam: Awake alert NAD scleras nonicteric bilat MMM RRR LS CTAB Abd soft, tender over RUQ and into posterior trunk, mildly tender over LUQ otherwise nontender pain over transverse low back and bilat hips w/ palpation and movement, has pain over lumbarsacral spine w/ palp, + SLR bilat worse on R Mood and affect appropriate Results - Labs from today: A1c improved to 7.0 from 7.3. Fasting blood sugar recorded at 160 mg/dL (non-fasted state). - Liver Function: ALT remains slightly elevated, AST levels have improved. - Lipids: General cholesterol levels have improved, yet HDL remains low. - Vitamin D: Level low at 13.7 ng/mL. - B12 levels were within the lower normal range. Discussion Notes During the consultation, I discussed with the patient several aspects of her current health management. We reviewed her diabetes management plan, emphasizing the positive trend in her A1c level and the decision for continued management through dietary changes in concert with nutritional counseling. We addressed her significant back pain, highlighting the challenges of insurance coverage affecting MRI access, and encouraged a multi-faceted approach including physical therapy and potential chiropractic adjustments. The management of nephrolithiasis through modifications advised by the urologist was noted. Due to her low vitamin D status, we discussed supplementation options to address the deficiency, with the acknowledgment of its role in her fatigue and mood symptoms. I advised continuance of atorvastatin for her hyperlipidemia to mitigate cardiovascular risk. Follow-up will include monitoring blood sugars and the potential need for medication if spikes in glucose level occur consistently. Assessment and Plan 1. Type 2 Diabetes Mellitus: Diabetes management through diet shows progress with improvements in A1c levels. Monitor blood sugars closely, revisiting medication options if levels exceed 200 mg/dL consistently. Maintain planned consultation with a attendant arcade for further dietary support. 2. Chronic Abdominal Pain: Persistent abdominal pain is currently under evaluation with gastroenterology. 3. Nephrolithiasis: The condition continues to be managed with recommendations from urology, particularly mindful of dietary and potential cannabis use adjustments. 4. Vitamin D Deficiency: Begin vitamin D supplementation due to significantly low levels. Enhance dietary intake to support supplementation. 5. Low B12 levels: Monitor B12 levels due to low normal values, continuing with a diet that supports maintenance of levels. 6. Hyperlipidemia: Continue atorvastatin therapy to manage hyperlipidemia effectively. Reassess cholesterol profile periodically to ensure optimal cardiovascular protection. Patient Instructions - Monitor blood glucose levels closely. If your blood sugar exceeds 200 mg/dL consistently, notify me immediately. - Continue dietary changes and lifestyle modifications. Attend the scheduled appointment with the attendant arcade on June 10. - Begin vitamin D supplementation as discussed. - Follow up with pain management and explore chiropractic adjustments for back pain. - Continue taking atorvastatin daily to manage cholesterol. - Follow recommendations provided by your urologist regarding kidney stones. RTO 3 months for routine fu, sooner as needed repeat a1c in office @ that time. Consent Patient was informed and verbally consented to the use of an ambient scribe for clinic note documentation during this visit. Total time spent caring for the patient today was 45 minutes. This includes time spent before the visit reviewing the chart, time spent during the visit, and time spent after the visit on documentation, reviewing laboratory results, diagnostic imaging, medications, performing a medically necessary evaluation, counseling on diagnoses, care coordination, ordering appropriate tests, ordering appropriate medications, review of tests performed by other providers, reporting test results with the patient, communication with other healthcare providers. [facility] Medical History (Updated 06/04/24 @ 13:06 by Minerva Zuleta [facility]) Acute respiratory disease Anemia Anxiety Asthma Bipolar 1 disorder Breast pain, left delivery delivered Depression Diabetes Fibromyalgia HTN (hypertension) Hypertension Kidney infection Kidney stones Lupus Migraine Nausea with vomiting, unspecified Nephrolithiasis Periodic limb movements of sleep Sciatica Sinusitis Sleep apnea Sleep apnea Surgical History (Updated 04/29/24 @ 09:15 by CLAUDIA Mcgregor) H/O section H/O: hysterectomy History of esophagogastroduodenoscopy (EGD) Hx of colonoscopy Family History Maternal Grandmother HTN (hypertension) Diabetes Cancer Mother Ovarian cancer Other FH: mental illness Substance use Social History Housing: Apartment Are you a primary career technology teacher to a significant other at home: No Do you presently have visiting nurse or other home services: No Alcohol intake: never Patient Tobacco Use Status: Current everyday Tobacco user Tobacco use type: Smokeless Tobacco e-Cigarette/Vaping Use: Currently Using Substance Use Type: Marijuana Advance Directives Date on File: 02/02/24 service: No Current occupational status: employed 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 1. Little interest or pleasure in doing things: not at all 2. Feeling down, depressed, or hopeless: not at all 3. Trouble falling or staying asleep, or sleeping too much: not at all 4. Feeling tired or having little energy: not at all 5. Poor appetite or overeating: not at all 6. Feeling bad about yourself - or that you are a failure or have let yourself or your family down: not at all 7. Trouble concentrating on things, such as reading the newspaper or watching television: not at all 8. Moving or speaking so slowly that other people could have noticed. Or the opposite - being so fidgety or restless that you have been moving around a lot more than usual: not at all 9. Thoughts that you would be better off or of hurting yourself in some way: not at all Total score: 0 Depression Screening Interpretation: Negative Depression Screening Done: Yes 68269 - PHQ-9 Billing: Yes Source: Developed by Drs. Rob Parry, Tana Rowley, Gen Mcdonald and colleagues, with an educational ezra from [employer] Something 3. Thrive Questionnaire Date Thrive assessed: 06/04/24 I am a: Patient What is your living situation today?: I have a steady place to live Within the past 12 months, did the food you bought not last and you didn't have the money to get more?: Sometimes True Within the past 12 months, did you worry whether your food would run out before you got money to buy more?: Sometimes True Do you have trouble paying for medicines?: No Do you have trouble getting transportation to medical appointments?: No Do you have trouble paying your heating and electricity bill?: Yes Do you have trouble taking care of your child, family member or friend?: No Do you have trouble with day-to-day activities such as bathing, preparing meals, shopping, managing finances, etc.?: No Are you currently unemployed and looking for a job?: No Are you interested in more education?: No Please select the resources that you would like help with: None THRIVE Score: 3 AUDIT C Alcohol Use Questionnaire (AUDIT-C) 1. How often do you have a drink containing alcohol?: 2-3 times a week 2. How many drinks containing alcohol do you have on a typical day when you are drinking?: 3 or 4 3. How often do you have six or more drinks on one occasion?: Never Total Score: 4 Score Reviewed/Action Taken: Yes JONATHON-7 AMB Questionnaire JONATHON-7 Date JONATHON - 7 assessed: 06/04/24 Feeling nervous, anxious, or on edge: 0 = Not at all Not being able to stop or control worryin = Not at all Worrying too much about different things: 0 = Not at all Trouble relaxin = Not at all Being so restless that it is hard to sit still: 0 = Not at all Becoming easily annoyed or irritable: 0 = Not at all Feeling afraid as if something awful might happen: 0 = Not at all Total JONATHON-7 score (0-4 normal; 5-9 mild; 10-14 moderate; 15-21 severe): 0 Source: Developed by Drs. Rob Parry, Tana Rowley, Gen Mcdonald and colleagues, with an educational ezra from Finding [employer] 3. JONATHON-7 Assessment Billing JONATHON-7 Assessment Tool: JONATHON-7 Assessment 83646 Physical exam (Primary Care) Vital Signs: Last Vital Signs Temp 97.3 F 06/04/24 12:45 Pulse 75 06/04/24 12:45 Resp 12 06/04/24 12:45 BP 124/74 06/04/24 12:45 Pulse Ox 98 06/04/24 12:45 Oxygen Delivery Method Room Air 06/04/24 12:45 BMI result Body Mass Index 36.2 BMI Assessment/Plan discussion: High BMI High, discussed plan: lifestyle Tobacco/Smoking Status: Tobacco use Status Tobacco use date assessed 06/04/24 06/04/24 12:41 Patient Tobacco Use Status Current everyday Tobacco 06/04/24 12:41 Tobacco use type Smokeless Tobacco 06/04/24 12:41 e-Cigarette/Vaping Use Currently Using 06/04/24 12:41 Depression Screening Interpretation: Negative Thrive Assessment: Date of Thrive Assessment Date Thrive assessed 06/04/24 06/04/24 12:41 Coding Level of Care Code Est Pt Level 5 (21653) Complex EM visit Add On G2211 Diagnoses DM type 2 causing complication E11.8 Vitamin D deficiency E55.9 Marijuana use F12.90 Nephrolithiasis N20.0 Coronary artery disease involving elim ira coronary artery of elim ira heart without angina pectoris I25.10 Associated angina: without angina Coronary Disease-Associated Artery/Lesion type: elim ira artery Elem vs. transplanted heart: elim ira heart Hypertension due to endocrine disorder I15.2 Hypertension type: secondary to endocrine disorders Class 2 severe obesity due to excess calories with serious comorbidity and body mass index (BMI) of 36.0 to 36.9 in adult E66.812; E66.01; Z68.36 Body mass index: BMI 36.0-36.9 Obesity classification: adult class 2 (BMI 35 - 39.9) Obesity type: due to excess calories Additional Codes JONATHON-7 Assessment Billing - JONATHON-7 Assessment Tool: JONATHON-7 Assessment 21114 ([id number]) PHQ-9 - 91374 - PHQ-9 Billing: Yes ([id number]) Assessment & Plan Assessment & Plan (1) DM type 2 causing complication: Code(s): E11.8 - Type 2 diabetes mellitus with unspecified complications Category: Medical (2) Vitamin D deficiency: Code(s): E55.9 - Vitamin D deficiency, unspecified Category: Medical (3) Marijuana use: Code(s): F12.90 - Cannabis use, unspecified, uncomplicated Category: Social Hx (4) Nephrolithiasis: Code(s): N20.0 - Calculus of kidney Category: Medical (5) CAD (coronary artery disease): Code(s): I25.10 - Atherosclerotic heart disease of elim ira coronary artery without angina pectoris Category: Medical Qualifiers: Associated angina: without angina Coronary Disease-Associated Artery/Lesion type: elim ira artery Elem vs. transplanted heart: elim ira heart Qualified Code(s): I25.10 - Atherosclerotic heart disease of elim ira coronary artery without angina pectoris (6) HTN (hypertension): Code(s): I10 - Essential (primary) hypertension Category: Medical Qualifiers: Hypertension type: secondary to endocrine disorders Qualified Code(s): I15.2 - Hypertension secondary to endocrine disorders (7) Obesity with serious comorbidity: Comment: with dm and htn Code(s): E66.9 - Obesity, unspecified Category: Medical Qualifiers: Body mass index: BMI 36.0-36.9 Obesity classification: adult class 2 (BMI 35 - 39.9) Obesity type: due to excess calories Qualified Code(s): E66.812 - Obesity, class 2; E66.01 - Morbid (severe) obesity due to excess calories; Z68.36 - Body mass index [BMI] 36.0-36.9, adult Plan . Medications: New cholecalciferol (vitamin D3) 50 mcg PO DAILY 90 caps 2RF
[2024-06-04 12:45] VITALS: BP 124/74; PULSE 75; RESP 12; TEMP 36.3; O2SAT 98; BMI 36.2
--- OUTSIDE RECORDS SUMMARY | 2024-06-04 15:03 | XMS_ITS | Clinical Summary ---
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
== END 2024-06-04 13:22 | disposition home or self-care (01) ==
PROVIDERS: PCP Nurse Practitioner Family; Visit Provider Nurse Practitioner Family
DX: E11.8 Type 2 diabetes mellitus with unspecified complications (principal); E55.9 Vitamin D deficiency, unspecified; F12.90 Cannabis use, unspecified, uncomplicated; N20.0 Calculus of kidney; I25.10 Atherosclerotic heart disease of native coronary artery without angina pectoris; I15.2 Hypertension secondary to endocrine disorders; E66.812 Obesity, class 2; E66.01 Morbid (severe) obesity due to excess calories; Z68.36 Body mass index [BMI] 36.0-36.9, adult

== ENCOUNTER 2024-06-10 09:15 | Outpatient (AMB) | payer OTHER, SELFPAY ==
--- NOTE | 2024-06-10 09:15 | MHC.OFFVIS ---
Intake Visit Reasons: hemorrhoids Intake Note: She states that she is having all the same symptoms. She states that she either has diarrhea or constipation and at the moment she is at the stage where she is constipated so next week she states she will bleed all week. Uses the cream and takes metamucil but nothing seems to be working. Allergies hydrocodone [From VICODIN] Allergy (Mild, Verified 06/10/24 09:16) HIVES oxycodone [From PERCOCET] Allergy (Mild, Verified 06/10/24 09:16) HIVES azithromycin [AZITHROMYCIN] Allergy (Unknown, Verified 06/10/24 09:16) NAUSEA & VOMITING erythromycin base [From ERYTHROCIN] Allergy (Unknown, Verified 06/10/24 09:16) NAUSEA & VOMITING metformin Adverse Reaction (Mild, Uncoded 06/10/24 09:16) Gastrointestinal Upset HPI Comments Details: 43 y.o F with PMH of who is here for rectal bleeding and abd pain. Has been having intermittent rectal bleeding for almost 5 years. Typically with a BM. On wiping. Stool itself is brown. BMs fluctuate from constipation to diarrhea. Typically starts off as very hard BM and then gets softer as the day. Strains significantly. Can feel hemorrhoids on wiping. Also reports significant abd pain phyllis in left side. Unrelated to BMs per her report. No fam hx of colon ca in FDR. Vapes. Takes edible THC. Rare alcohol. No blood thinners. Takes NSAIDs frequently for migraines. 02/15/24: Colonoscopy 1. Cecum not visualised but remaining mucosa normal. (biopsy) 2. Total of 1 polyp removed 3. External and internal hemorrhoids with stigmata of recent bleeding Recommendations: - Follow path results. - Repeat colo at 46y.o as today's colo was not adequate for CRC screening - Bleeding likely from bleeding hemorrhoids. Anusol supp Rxed - Avoid constipation and straining A. Colon, right, biopsy: Colonic mucosa within normal limits. B. Colon, ascending, polypectomy: Colonic mucosa with mild surface hyperplastic changes; multiple additional levels examined. C. Colon, left, biopsy: Colonic mucosa within normal limits 04/29/24: Here for follow up. Reports has persistent rectal bleeding but also didnt take anusol suppositories yet. Cont to have loose stools. Results of colo reviewed. No colitis/proctitis. Bleeding likely from hemorrhoids. Labs reviewed, no anemia. Of note- pt has T2DM. Not on meds - metformin DCed due to diarrhea. Has appt with PCP later this week to discuss pharmacological management. Also has fatty liver. Pt had liver protocol MRI last week to follow up on liver lesion incidentally noted on CT abd/pel. MRI abd with and without contrast 04/26/24: 1. Hepatic steatosis. 2. Findings consistent with a 3.7 cm proteinaceous cyst in segment IV of the liver, which could be postinfectious or posttraumatic in nature. This is unchanged in size dating back to 08/16/2021. 3. 9 mm cystic structure in the body of the pancreas which may represent an IPMN. This is unchanged dating back to 08/16/2021. 06/10/24: Here as televisit. Had forgotten to discuss GLP 1 with PCP. However sugars are looking good and A1c has not worsened. LFTs are better too. Constipation and hemorrhoidal bleeding is unfortunately unchanged. Has days where she has passage of only pellets with significant straining. Has 1-2 BMs per week. Daily meds: metamucil miralax dulcolax Laboratory Tests 05/06/24 06/04/24 15:28 10:28 Hgb 15.2 13.4 Hct 43.5 39.3 Creatinine 0.63 Fasting Glucose 160 H Hemoglobin A1c % 7.0 H Iron 56 % Saturation 22 Ferritin 141 Total Bilirubin 0.2 AST 38 H 27 ALT 42 H 36 H Alkaline Phosphatase 122 H Total Protein 6.8 Albumin 3.5 LDL Cholesterol, Calc 91 HDL Cholesterol 35 L Mitochondrial AB Titer Pending 25-OH Vitamin D Total 13.7 L IgG 999 GERARDO Screen NEGATIVE Anti-Mitochondrial Ab NEGATIVE Anti-Smooth Muscle Ab <20 Tiss Transglutamin IgA <1.0 Olivia/Kid Microsom Ab Int <=20.0 Hep Bs Antibody NONREACTIVE Hep B Core Total Ab Nonreactive Hepatitis C Ab (EIA) Nonreactive HIV 1&2 Ab/P24 Ag 4thGn Nonreactive PFSH Medical History (Updated 06/04/24 @ 13:06 by Minerva Zuleta, [facility]-) Acute respiratory disease Nausea with vomiting, unspecified Nephrolithiasis Periodic limb movements of sleep Anemia Asthma Sleep apnea Migraine Sinusitis Breast pain, left Hypertension Sleep apnea Bipolar 1 disorder Depression Anxiety delivery delivered Diabetes Sciatica Kidney infection Kidney stones HTN (hypertension) Fibromyalgia Lupus Surgical History (Updated 04/29/24 @ 09:15 by CLAUDIA Mcgregor) Hx of colonoscopy History of esophagogastroduodenoscopy (EGD) H/O section H/O: hysterectomy Family History Maternal Grandmother HTN (hypertension) Diabetes Cancer Mother Ovarian cancer Other FH: mental illness Substance use Social History Housing: Apartment Are you a primary personal care attendant to a significant other at home: No Do you presently have visiting nurse or other home services: No Alcohol intake: never Patient Tobacco Use Status: Current everyday Tobacco user Tobacco use type: Smokeless Tobacco e-Cigarette/Vaping Use: Currently Using Substance Use Type: Marijuana Advance Directives Date on File: 02/02/24 service: No Current occupational status: employed 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 Current occupational exposures/hazards: No Cognitive needs: No Hearing needs: No Vision needs: Yes (glasses) Review of Systems Const All systems reviewed & are unremarkable except as noted in HPI and below Physical Exam Vital Signs: Video visit: No acute distress No icterus noted No facial asymmetry Speaking in full sentences Telehealth Telehealth Telehealth Platform: [employer] Location of provider rendering services: practice address Location of patient: address on file Patient Identification confirmed using: Name, : Yes Telehealth method: video Patient verbally consented to treatment: Yes Patient verbally consented to billing insurance company: Yes Patient informed of any privacy concerns related to visit: Yes Minutes spent on Phone/Video with Pt.: 16 Assessment & Plan Assessment & Plan (1) Bleeding hemorrhoids: Code(s): K64.9 - Unspecified hemorrhoids Category: Medical (2) Elevated LFTs: Code(s): R79.89 - Other specified abnormal findings of blood chemistry Category: Medical (3) Fatty liver: Code(s): K76.0 - Fatty (change of) liver, not elsewhere classified Category: Medical (4) Obesity: Code(s): E66.9 - Obesity, unspecified Category: Medical (5) Diabetes: Code(s): E11.9 - Type 2 diabetes mellitus without complications Category: Medical (6) Pancreatic cyst: Code(s): K86.2 - Cyst of pancreas Category: Medical Plan 1. Rectal bleeding 2/2 hemorrhoids. Minimal response to current regimen and remains fairly constipated still. Discussed with the patient that as long as she remains constipated, hemorrhoidal bleeding may persist. The CBC shows stable H&H, so the bleeding is likely not clinically significant. No colitis, large mass noted during colonoscopy. Pt reminded that colo prep was NOT adequate for polyp detection and would recommend repeat colo in 3 years at 46 y.o for screening purpose. Plan: - start Linzess 145 mcg - Stop Dulcolax for now - can be resumed if suboptimal results with linzess. - Cont fiber and miralax. Miralax can be held for diarrhea (>2 BMs per day) - Pt to call us for excessive diarrhea in which case Linzess will be reduced to 72 mcg. - Utilize glycerin supp for fecal impaction as needed - Avoid excessive wiping- consider using allen bottle to wash and then dab dry 2. Elevated LFTs Likely 2/2 fatty liver which in turn appears to be from HOLDEN as reports rare etOH use. Risk factors include obesity, T2DM, mild hyperlipidemia. Other causes such as wilsons, hemochromatosis, chronic hep, AIH r/o. Fib 4: 0.71 i.e advanced fibrosis less likely. Plan: - Repeat LFTs in 6 months - Will also check HBsAg (missed on last labs) 3. Pancreatic cyst 9 mm cyst in body of pancreas without any high risk features. Stable x3 years. Plan: - Repeat MRI in 2026 to ensure stability. Follow up 6 months Orders: Orders Hepatitis B Surface Antigen 6 Months K76.0 - Fatty (change of) liver, not elsewhere classified Liver Panel 6 Months K76.0 - Fatty (change of) liver, not elsewhere classified Medications: New linaclotide (Linzess) 145 mcg PO DAILY 30 caps 0RF glycerin (child) 2 supp MN DAILY 30 days PRN 25 ea 0RF constipation Coding Level of Care Code Tele Est Pt Level 4 (98398) Diagnoses Bleeding hemorrhoids K64.9 Elevated LFTs R79.89 Fatty liver K76.0 Obesity E66.9 Diabetes E11.9 Pancreatic cyst K86.2
--- OUTSIDE RECORDS SUMMARY | 2024-06-10 09:59 | XMS_ITS | Clinical Summary ---
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
== END 2024-06-10 14:04 | disposition home or self-care (01) ==
LOC: HO.HGI 09:15
PROVIDERS: PCP Nurse Practitioner Family; Visit Provider Internal Medicine
DX: K76.0 Fatty (change of) liver, not elsewhere classified (principal); K64.9 Unspecified hemorrhoids; K86.2 Cyst of pancreas; R74.01 Elevation of levels of liver transaminase levels
CPT/HCPCS: 99213

== ENCOUNTER → 2024-06-10 09:15 | Outpatient (BNVA) | payer OTHER, SELFPAY | PROVIDERS: PCP Nurse Practitioner Family; Visit Provider Internal Medicine | DX: E11.9 Type 2 diabetes mellitus without complications (principal); K64.9 Unspecified hemorrhoids; K76.0 Fatty (change of) liver, not elsewhere classified; K86.2 Cyst of pancreas; R79.89 Other specified abnormal findings of blood chemistry; E66.9 Obesity, unspecified; Z68.35 Body mass index [BMI] 35.0-35.9, adult; Z71.3 Dietary counseling and surveillance | CPT/HCPCS: 97802 ==

== ENCOUNTER 2024-06-21 09:55 | Outpatient (RCR) | payer OTHER, SELFPAY ==
--- NOTE | 2024-05-23 16:08 | MHC.PT.EP ---
[facility] [place] Office [place] [facility] [place] Office [address] Benjamin Machado [address] [phone] F: [phone] F: [phone] F: [phone] F: [phone] Physical Therapy Plan of Care Date of Evaluation: 05/23/24 Date of Surgery: Diagnosis: sacrococcygeal disorders, lumbar radiculopathy, vertebrogenic low back pain. Patient impairments include (RS) Assessment: Linda is a 43 y.o. female with complex medical history including asthma, DMT2, current kidney stones and ovarian cyst, fibromyalgia, HTN, bipolar 1, with surgical history of multiple abdominal surgeries; x2, hysterectomy, bladder sling. She is referred to PT by Dr. Shagufta Redd [facility] with Dx of sacrococcygeal disorders, lumbar radiculopathy, vertebrogenic low back pain. Patient impairments include chronic pain, poor posture, reduced lumbar lordosis, reduced lumbar ROM, weakness of abdominal musculature, weakness of bilateral LEs, radiculopathy in LEs, antalgic gait. Patient current functional limitations are squat, sleeping, prolonged sitting, prolonged standing, walking. Patient will benefit from skilled PT to address aforementioned impairments and functional limitations to meet established goals. Rehab potential is fair due to comorbidities and multi yr hx of symptoms. Frequency and Duration: The patient will be seen 1-2x/week for 4 weeks Short Term Goals: 2 weeks Patient demonstrates consistency and independence with HEP to self manage symptoms. Patient is able to centralize LE sxs to low back with postures/positioning. Retirement Goals: 4 weeks Patient presents with increased lumbar spine flexion AROM 70 degrees to be able to perform ADLs with reduced difficulty and more independence. Patient presents with increased bilat hip glut med strength 4/5 to improve prolonged postures in sitting or standing. Treatment Plan: Modalities to reduce pain, spasms and effusion. Manual therapy to restore motion and function. Therapeutic exercise to improve strength and flexibility. Neuromuscular re-education for posture and balance. Therapeutic activities to return to functional activities of daily living. Electronically signed by: Johnathan Aguilera, PT, DPT Please sign and return to therapist. Thank you for your referral.
--- NOTE | 2024-06-21 13:30 | MHC.PT.DC ---
[facility] [place] [facility] [place] [facility] [place] [facility] [address] Benjamin Machado [address] [phone] F: [phone] F: [phone] F: [phone] F: [phone] Physical Therapy Discharge Report Diagnosis: sacrococcygeal disorders, lumbar radiculopathy, vertebrogenic low back pain. Patient impairments include (RS) Date of Surgery: Date of Evaluation: 05/23/24 Date of Discharge: 06/21/24 Treatments to Date: 4 Cancellations to Date: 1 No Shows to Date: 0 Discharge Status: Recommend MD Follow-up Discharge Summary: Linda completed 4 weeks of physical therapy. Patient education on ergonomics, postures and positioning, therapeutic exercises and activities and modalities (moist heat and TENS) were utilized. She presents with no change in her pain levels and continued LE radiculopathy and sharp stabbing pain. She is re-educated on proper bend/squat with picking up any items to reduce back strain as well as log roll technique for bed transfers this session. Recommend FUP with MD for further imaging and treatment. Electronically signed by: Johnathan Aguilera PT, DPT Please sign and return to therapist. Thank you for your referral.
== END 2024-06-21 13:30 | disposition home or self-care (01) ==
LOC: HO.PT 09:55
PROVIDERS: PCP Nurse Practitioner Family; Visit Provider Nurse Practitioner Family
DX: M53.3 Sacrococcygeal disorders, not elsewhere classified (principal); M54.16 Radiculopathy, lumbar region; M54.51 Vertebrogenic low back pain
CPT/HCPCS: 97014; 97110; 97162; 97535

== ENCOUNTER 2024-06-28 09:42 | Outpatient (AMB) | payer OTHER, SELFPAY ==
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
[2024-06-28 09:53] VITALS: BP 185/93; PULSE 89; O2SAT 97; BMI 35.1
--- OUTSIDE RECORDS SUMMARY | 2024-06-28 11:10 | XMS_ITS | Clinical Summary ---
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
== END 2024-06-28 10:15 | disposition home or self-care (01) ==
LOC: HO.PMC 09:43
PROVIDERS: PCP Nurse Practitioner Family; Visit Provider Nurse Practitioner Family
DX: M25.522 Pain in left elbow (principal); M54.50 Low back pain, unspecified; R20.2 Paresthesia of skin
CPT/HCPCS: 99213; G2211

== ENCOUNTER 2024-06-28 11:38 | Outpatient (REF) | payer OTHER, SELFPAY ==
--- NOTE | ~2024-06-28 | US_ITS ---
CLINICAL HISTORY: N83.299 - Other ovarian cyst, unspecified side US pelvis transvaginal Comparison: US/SR - US PELVIC AND TRANSVAGINAL - 02/26/24 13:30 EST Findings: Transvaginal scanning performed. Post hysterectomy. Right ovary 1.3 x 0.7 x 1 cm. Left ovary 1.7 x 1.4 x 1.5 cm. Resolution in the left ovarian cysts, with scattered tiny follicles. Normal color Doppler of both ovaries. Spectral tracing not provided. No free fluid. IMPRESSION: Post hysterectomy. No evidence of ovarian torsion. This document has been electronically signed by: Magdaleno Latham MD on 06/29/2024 06:48:00
--- NOTE | ~2024-06-28 | XR_ITS ---
EXAMINATION: XR ELBOW, LEFT CLINICAL INFORMATION: M25.522 - Pain in left elbow COMPARISON: None available. TECHNIQUE: AP, lateral, and oblique views of the left elbow. FINDINGS: Osteophyte formation along the ulnar aspect of the coracoid process, left lung. No acute cortical disruption or malalignment. No lytic or blastic lesions. No joint space narrowing. No joint effusion. XR/XR elbow LT min 3V IMPRESSION: Mild osteoarthrosis without acute fracture or dislocation. Electronically signed by: Epi Salinas MD 07/01/2024 08:52 AM EDT
== END 2024-06-28 11:39 | disposition home or self-care (01) ==
LOC: HO.US 11:38
PROVIDERS: PCP Nurse Practitioner Family; Visit Provider Obstetrics & Gynecology
DX: N83.299 Other ovarian cyst, unspecified side (principal); M25.522 Pain in left elbow; M54.50 Low back pain, unspecified; R20.2 Paresthesia of skin
CPT/HCPCS: 73080; 76830; 76856; 99212

== ENCOUNTER → 2024-06-28 11:40 | Outpatient (BNV) | payer OTHER, SELFPAY | PROVIDERS: PCP Nurse Practitioner Family; Visit Provider Radiology Diagnostic Radiology | DX: Z90.710 Acquired absence of both cervix and uterus (principal); N83.292 Other ovarian cyst, left side | CPT/HCPCS: 76830; 76856 ==

== ENCOUNTER 2024-07-02 09:24 | Outpatient (AMB) | payer OTHER, SELFPAY ==
[2024-07-02 09:26] VITALS: BP 140/80; PULSE 83; TEMP 36.6; O2SAT 99; BMI 35.4
--- NOTE | 2024-07-02 09:26 | AM.OFFWIN_ITS ---
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 Accompanied by: Self / Same As Patient Allergies hydrocodone [From VICODIN] Allergy (Mild, Verified 07/02/24 09:26) HIVES oxycodone [From PERCOCET] Allergy (Mild, Verified 07/02/24 09:26) HIVES azithromycin [AZITHROMYCIN] Allergy (Unknown, Verified 07/02/24 09:26) NAUSEA & VOMITING erythromycin base [From ERYTHROCIN] Allergy (Unknown, Verified 07/02/24 09:26) NAUSEA & VOMITING metformin Adverse Reaction (Mild, Uncoded 06/10/24 09:16) Gastrointestinal Upset Do you need a note to return to daycare/school/sports/work: Yes HPI HPI Comments History of Present Illness Details History - The patient is a 43-year-old female pr esenting with fever, sore throat, ear pain, cough, and asthmatic symptoms. - Initial symptoms included feeling unwe ll 4 days ago, with a tmax of 102.6?F. - Fever management involved ibuprofen an d acetaminophen with a temperature range of 100-101.8?F. - Additional symptoms developed includin g nausea, a wet raspy cough, and body aches by 3d ago. - Right ear pain was predominant, with t hroat discomfort and voice scratchiness noted. - The patient has a history of asthma, t he inhaler was ineffective for shortness of breath and wheezing. - She has ceased vaping while ill and re ports a negative COVID-19 test with an test kit. - Constipation has replaced earlier diar rocio, the patient continues to experience nausea. - Sinus discomfort is minor, and she mon itors her Type 2 diabetes without medication. Physical Exam General: Cooperative, healthy appearing, comfortable and no acute distress Orientation/consciousness: Patient oriented x3 Limitations: No limitations Head: Normal to inspection Ears: Hearing grossly normal bilaterally, external ears normal and TM's normal bilaterally Nose: Normal external nose present, Normal nares present and No nasal discharge present Face and sinus: Normal facial exam and Yes sinuses mild ttp Mouth: Normal oral and palatal mucosa present and moist mucous membranes Throat: Yes tonsils normal, Yes uvula midline. Posterior oropharynx erythema Eyes: Appearance normal, both eyes and all related structures Neck: Normal visual inspection Respiratory: Clear to auscultation bilaterally. Normal respiratory effort, able to speak in complete sentences, Actively coughing, no respiratory distress, not tachypneic, no tripod positioning and no use of accessory muscles Cardiovascular: Regular rate and rhythm. Normal S1 and S2 Skin: No rashes or lesions noted Neuro: Patient oriented x3 Extremities: Normal to inspection and Yes no clubbing, cyanosis or edema PFSH Medical History Acute respiratory disease Nausea with vomiting, unspecified Nephrolithiasis Periodic limb movements of sleep Anemia Asthma Sleep apnea Migraine Sinusitis Breast pain, left Hypertension Sleep apnea Bipolar 1 disorder Depression Anxiety delivery delivered Diabetes Sciatica Kidney infection Kidney stones HTN (hypertension) Fibromyalgia Lupus Surgical History Hx of colonoscopy History of esophagogastroduodenoscopy (EGD) H/O section H/O: hysterectomy Family History Maternal Grandmother HTN (hypertension) Diabetes Cancer Mother Ovarian cancer Other FH: mental illness Substance use Social History Housing: Apartment Are you a primary critical care educator to a significant other at home: No Do you presently have visiting nurse or other home services: No Alcohol intake: never Patient Tobacco Use Status: Current everyday Tobacco user Tobacco use type: Smokeless Tobacco e-Cigarette/Vaping Use: Currently Using Substance Use Type: Marijuana Advance Directives Date on File: 02/02/24 service: No Current occupational status: employed 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 For the influenza-like illness, tests for influenza, COVID-19, and RSV are necessary, and management will include OTC meds, sufficient hydration and rest. Tessalon Perles are prescribed for cough relief, while steroids are to be initiated to manage asthma symptoms and alleviate the associated respiratory discomfort. Consideration of her type 2 diabetes requires advising a low-carb diet during this period to mitigate potential glucose elevation. A work note will be issued for two days off to allow recovery, and additional communication will occur regarding test results later today. Patient was informed and verbally consented to the use of an ambient scribe for clinic note documentation during this visit Orders: Orders SARS-CoV2/FLU/RSV Today R09.89 - Other specified symptoms and signs involving the circulatory and respiratory systems Medications: New prednisone 20 mg PO QAM 5 tabs 0RF benzonatate 200 mg PO BEDTIME PRN 10 caps 0RF cough Coding Level of Care Code Est Pt Level 3 (19635) Diagnoses Acute viral syndrome B34.9
--- OUTSIDE RECORDS SUMMARY | 2024-07-02 10:24 | XMS_ITS | Clinical Summary ---
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
== END 2024-07-02 10:04 | disposition home or self-care (01) ==
PROVIDERS: PCP Nurse Practitioner Family; Visit Provider Physician Assistant
DX: B34.9 Viral infection, unspecified (principal)

== ENCOUNTER 2024-07-02 09:24 | Outpatient (REF) | payer OTHER, SELFPAY ==
[2024-07-02 15:45] LABS: Influenza A PCR NEGATIVE (Negative); Influenza B PCR NEGATIVE (Negative); Resp Syncy Virus RNA Qual PCR NEGATIVE (Negative); SARS COV2 PCR INHOUSE NEGATIVE (Negative)
== END 2024-07-02 09:25 | disposition home or self-care (01) ==
LOC: HO.LAB 09:24
PROVIDERS: Physician Assistant; PCP Nurse Practitioner Family
DX: R09.89 Other specified symptoms and signs involving the circulatory and respiratory systems (principal); B34.9 Viral infection, unspecified; R50.9 Fever, unspecified
CPT/HCPCS: 0241U; 99212

== ENCOUNTER 2024-07-06 15:54 | Emergency (ER) | payer OTHER, SELFPAY ==
--- NOTE | ~2024-07-06 | XR_ITS ---
CLINICAL HISTORY: chest congestion 2 view chest x-ray Comparison: CR/SR - XR CHEST 2V - 05/06/24 13:06 EST Findings: Mild left lower lobe atelectasis. No significant pleural effusion or pneumothorax. Similar prominent/enlarged cardiac silhouette. No acute fracture. IMPRESSION: Mild left lower lobe atelectasis. This document has been electronically signed by: Magdaleno Latham MD on 07/06/2024 19:31:57
[2024-07-06 16:27] VITALS: BP 143/82; PULSE 71; RESP 16; TEMP 36.1; O2SAT 97; BMI 35.1
[2024-07-06 17:12] LABS: Basophils Percent Auto 0.4 % (0-2); Eosinophils Absolute Auto 0.2 X10*3/uL (0.0-0.4); Eosinophils Percent Auto 2.2 % (0-4); Imm Gran Abs Auto 0.12 X10*3/uL (0.00-0.03); Imm Gran Pct Auto 1.2 % (0.0-0.4); Lymphocytes Absolute Auto 3.2 X10*3/uL (1.2-4.9); Lymphocytes Percent Auto 33.1 % (20-40); MANUAL DIFF FLAG NO; Mean Corpuscular HGB Conc 35.9 g/dl (31.0-35.0); Mean Corpuscular Hemoglobin 30.6 pg (27.0-33.0); Mean Corpuscular Volume 85.2 fL (80.0-98.0); Mean Platelet Volume 9.2 fL (9.4-12.3); Monocytes Absolute Auto 0.8 X10*3/uL (0.1-1.2); Monocytes Percent Auto 8.4 % (2-11); Neutrophils Absolute Auto 5.3 x10*3/uL (2.0-8.3); Neutrophils Percent Auto 54.7 % (45-73); Platelet Count 273 X10*3/uL (160-400); Red Blood Count 4.58 X10*6/uL (4.20-5.50); Red Cell Distribution Width 13.4 % (11.0-16.0); White Blood Count 9.7 X10*3/uL (4.8-10.8)
--- NOTE | 2024-07-06 17:24 | ED.GENADULT ---
HPI - General Adult General Chief complaint: Recheck/Abnormal Lab/Rx Stated complaint: high blood sugar,congested cough Time Seen by Provider: 07/06/24 16:32 Source: patient Mode of arrival: ambulatory Limitations: no limitations History of Present Illness ED Provider: ANNY PEÑALOZA PA-C HPI narrative: 43 year old female with pmhx significant for HTN, lupus, fibromyalgia, T2DM, bipolar 1 disorder, anxiety, depression, IGNACIO, asthma, anemia presents to the ED today with multiple concerns. She reports recent URI. She was evaluated at on Monday where she had negative viral testing. No chest x-ray was performed. She was diagnosed with a possible bronchitis and discharged with doxycycline and prednisone. She states she is a type 2 diabetic. Her diabetes was previously managed with metformin however is now only managed with diet changes. She states that after starting the prednisone, she began to feel diaphoretic, dizzy, nausea, weak, shaky and fatigued. She reports monitoring her blood sugars at home. These have ranged anywhere from 150-250 which are abnormal for her. Related Data Home Medications ?Medication ?Instructions ?Recorded ?Confirmed bupropion HCl 300 mg 24 hr tablet, 300 mg PO DAILY 09/08/23 06/04/24 extended release fluticasone propionate 50 1 spray intranasal BID PRN 02/02/24 06/04/24 mcg/actuation nasal allergies spray,suspension metoprolol tartrate 25 mg tablet 25 mg PO DAILY 02/02/24 06/04/24 Previous Rx's ?Medication ?Instructions ?Recorded blood sugar diagnostic (FreeStyle #100 ea 07/20/20 Lite Strips) blood-glucose meter (FreeStyle #1 ea 07/20/20 Bayard Lite kit) lancets 28 gauge (FreeStyle #100 ea 07/20/20 Lancets) acetaminophen 500 mg tablet 1,000 mg (2 x 500 mg) PO Q8H PRN 08/01/23 (Tylenol Extra Strength) back pain #60 tabs albuterol sulfate 90 mcg/actuation 2 puff inhalation Q4-6H PRN 09/19/23 aerosol inhaler shortness of breath or wheezing #1 ea fluticasone furoate 100 1 inh inhalation DAILY #30 ea 01/08/24 mcg/actuation blister powder for inhalation (Arnuity Ellipta) ondansetron 4 mg disintegrating 4 mg PO Q8H PRN nausea and 01/22/24 tablet vomiting 5 days #15 tabs lisinopril 5 mg tablet 5 mg PO DAILY #90 tabs 02/07/24 omeprazole 40 mg capsule,delayed 40 mg PO BID #180 caps 02/13/24 release hydrocortisone 2.5 % topical cream 1 appl WA BEDTIME 14 days #30 grams 02/15/24 with perineal applicator (Procto-Med HC) docusate sodium 100 mg capsule 100 mg PO BID constipation 30 days 04/12/24 (Colace) #60 caps lidocaine 5 % topical patch 1 patch topical DAILY PRN Pain #30 04/12/24 ea cholecalciferol (vitamin D3) 50 50 mcg PO DAILY #90 caps 06/04/24 mcg (2,000 unit) capsule glycerin (child) 2 supp WA DAILY PRN constipation 06/10/24 30 days #25 ea linaclotide 145 mcg capsule 145 mcg PO DAILY #30 caps 06/10/24 (Linzess) atorvastatin 10 mg tablet 10 mg PO BEDTIME #90 tabs 06/14/24 sumatriptan succinate 100 mg 100 mg PO DAILY PRN migraine 06/17/24 tablet (Imitrex) headache #7 tabs gabapentin 100 mg capsule 100 - 400 mg (1 - 4 x 100 mg) PO 06/24/24 BEDTIME 30 days #90 caps benzonatate 200 mg capsule 200 mg PO BEDTIME PRN cough #10 07/02/24 caps prednisone 20 mg tablet 20 mg PO QAM #5 tabs 07/02/24 doxycycline hyclate 100 mg tablet 100 mg PO BID #10 tabs 07/03/24 meloxicam 15 mg tablet 15 mg PO DAILY for pain #30 tabs 07/08/24 Allergies Allergy/AdvReac Type Severity Reaction Status Date / Time hydrocodone [From VICODIN] Allergy Mild HIVES Verified 07/06/24 16:38 oxycodone [From PERCOCET] Allergy Mild HIVES Verified 07/06/24 16:38 azithromycin [AZITHROMYCIN] Allergy Unknown NAUSEA & Verified 07/06/24 16:38 VOMITING erythromycin base Allergy Unknown NAUSEA & Verified 07/06/24 16:38 [From ERYTHROCIN] VOMITING metformin AdvReac Mild Gastrointestinal Uncoded 07/06/24 16:38 Upset Review of Systems Review of Systems: Yes all other systems are reviewed and are negative [facility] Past Medical History Attestation statement: The following information was validated with the patient. Source: old records reviewed and nursing notes reviewed Medical History Acute respiratory disease Nausea with vomiting, unspecified Nephrolithiasis Periodic limb movements of sleep Anemia Asthma Sleep apnea Migraine Sinusitis Breast pain, left Hypertension Sleep apnea Bipolar 1 disorder Depression Anxiety delivery delivered Diabetes Sciatica Kidney infection Kidney stones HTN (hypertension) Fibromyalgia Lupus Surgical History Hx of colonoscopy History of esophagogastroduodenoscopy (EGD) H/O section H/O: hysterectomy Family History Family History Maternal Grandmother HTN (hypertension) Diabetes Cancer Mother Ovarian cancer Other FH: mental illness Substance use Social History Social History Housing: Apartment Are you a primary director of primary care to a significant other at home: No Do you presently have visiting nurse or other home services: No Alcohol intake: never Patient Tobacco Use Status: Current everyday Tobacco user Tobacco use type: Smokeless Tobacco e-Cigarette/Vaping Use: Currently Using Substance Use Type: Marijuana Advance Directives Date on File: 02/02/24 service: No Current occupational status: employed 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 General: Well appearing, in no acute distress. Skin: Warm, dry, intact. No rashes or lesions. Head: Normocephalic, atraumatic. EENT: Hearing is intact b/l. Conjunctiva clear. PERRLA. EOM intact. Moist mucous membranes.? Neck: Supple without LAD Cardiac: Chest wall symmetric. RRR Lungs: Normal respiratory effort without accessory muscle use. CTA bilaterally. Abdomen: obese, soft, non-tender, non-distended. No rebound tenderness or guarding. Positive BS x4. Back: No midline spinous or paraspinal tenderness. No step off deformity. Ext: Upper and lower extremities atraumatic, without tenderness, deformity, swelling or erythema Neuro: AOx3. Normal speech. Strength 5/5 intact throughout. No saddle anesthesia. Sensation intact to light touch. NV intact distally. Ambulating with steady gait. Psych: Appropriate mood and affect. Responds appropriately to questions. Course Course Course Narrative: 1901 -- CBC without leukocytosis or left shift. No anemia. H&H stable. Chemistry with hypomagnesemia to 1.5. repletion ordered. Normal potassium. BUN elevated to 27 with normal creatinine. Random glucose 217. Will order 1 L of IV fluids. Liver function at baseline. Lipase WNL. Urine without infection. Negative COVID, flu, RSV. Chest x-ray pending. Chest xray showing mild left lower lobe atelectasis. no infiltrate or consolidation. no effusion. > work up unremarkable. advised patient to discontinue steroid use d/t hyperglycemia. Medications Administered Discontinued Medications Generic Name Dose Route Start Last Admin Trade Name Freq PRN Reason Stop Dose Admin Sodium Chloride 1,000 mls @ 999 mls/hr 07/06/24 18:45 07/06/24 19:38 Ns IV 07/06/24 19:45 999 mls/hr .Q1H1M ISAIAH Administration Magnesium Sulfate 2 gm in 50 mls @ 150 mls/hr 07/06/24 18:37 07/06/24 19:49 Magnesium Sulfate/H2o IV 07/06/24 18:56 Infused ONCE ONE Infusion Medical Decision Making Medical Decision Making [facility] Narrative: 43 year old female with pmhx significant for HTN, lupus, fibromyalgia, T2DM, bipolar 1 disorder, anxiety, depression, IGNACIO, asthma, anemia presents to the ED today with multiple concerns. Vital signs are stable. She is nontoxic appearing in no acute distress. Physical exam is quite benign Differential diagnosis includes anemia, electrolyte abnormality, dehydration, hyperglycemia, hypoglycemia, DKA, hyperosmolar hyperglycemic state, bronchitis, pneumonia, viral syndrome Plan for labs, viral swabs, cxr, re-evaluation. Differential Diagnosis Differential Diagnoses: The differential diagnosis associated with the presentation includes as above. Admission/Observation not indicated. Lab Data [facility] Lab Attestation statement: I reviewed the patient's lab results. as above. 07/06/24 17:00 07/06/24 18:07 Labs: Lab Results 07/06/24 07/06/24 07/06/24 Range/Units 16:43 17:00 17:52 WBC 9.7 (4.8-10.8) X10*3/uL RBC 4.58 (4.20-5.50) X10*6/uL Hgb 14.0 (12.0-16.0) g/dl Hct 39.0 (37.0-47.0) % MCV 85.2 (80.0-98.0) fL MCH 30.6 (27.0-33.0) pg MCHC 35.9 H (31.0-35.0) g/dl RDW 13.4 (11.0-16.0) % Plt Count 273 (160-400) X10*3/uL MPV 9.2 L (9.4-12.3) fL Immature Gran % (Auto) 1.2 H (0.0-0.4) % Neut % (Auto) 54.7 (45-73) % Lymph % (Auto) 33.1 (20-40) % [place] % (Auto) 8.4 (2-11) % Eos % (Auto) 2.2 (0-4) % Baso % (Auto) 0.4 (0-2) % Lymph # (Auto) 3.2 (1.2-4.9) X10*3/uL [place] # (Auto) 0.8 (0.1-1.2) X10*3/uL Eos # (Auto) 0.2 (0.0-0.4) X10*3/uL Baso # (Auto) 0.0 (0.0-0.2) X10*3/uL Abs Immat Gran (auto) 0.12 H (0.00-0.03) X10*3/uL Absolute Neuts (auto) 5.3 (2.0-8.3) x10*3/uL Absolute Nucleated RBC 0.000 (0.0-0.012) X10*3/uL Nucleated RBC % (auto) 0.0 (0.0-0.2) /100WBC Sodium (135-145) mmol/L Potassium (3.3-5.1) mmol/L Chloride (96-108) mmol/L Carbon Dioxide (22-29) mmol/L Anion Gap (12-20) BUN (9-16) mg/dL Creatinine (0.5-1.4) mg/dL Estim Creat Clear Calc Estimated GFR POC Glucose 187 H (60-115) mg/dL Random Glucose (60-115) mg/dL Calcium (8.4-10.2) mg/dL Magnesium 1.5 L (1.6-2.6) mg/dL Total Bilirubin 0.2 (0.0-1.0) mg/dL Direct Bilirubin < 0.2 (0.0-0.5) mg/dL AST 30 (5-31) U/L ALT 39 H (0-31) U/L Alkaline Phosphatase 131 H (39-117) U/L Total Protein 7.1 (6.5-8.0) g/dL Albumin 3.8 (3.5-5.0) g/dL Lipase 23 (8-78) U/L Urine Color Yellow Urine Appearance Clear Urine pH 5.5 (5.0-9.0) Ur Specific [place] >= 1.030 H (1.005-1.025) Urine Protein Negative (Neg-Trace) mg/dL Urine Glucose (UA) Negative (Negative) mg/dL Urine Ketones Trace (Negative) mg/dL Urine Blood Negative (Negative) Urine Nitrite Negative (Negative) Ur Leukocyte Esterase Negative (Negative) Influenza Type A (PCR) NEGATIVE (Negative) Influenza Type B (PCR) NEGATIVE (Negative) RSV RNA Qual (PCR) NEGATIVE (Negative) SARS-CoV-2 RNA (RT-PCR) NEGATIVE (Negative) 07/06/24 Range/Units 18:07 WBC (4.8-10.8) X10*3/uL RBC (4.20-5.50) X10*6/uL Hgb (12.0-16.0) g/dl Hct (37.0-47.0) % MCV (80.0-98.0) fL MCH (27.0-33.0) pg MCHC (31.0-35.0) g/dl RDW (11.0-16.0) % Plt Count (160-400) X10*3/uL MPV (9.4-12.3) fL Immature Gran % (Auto) (0.0-0.4) % Neut % (Auto) (45-73) % Lymph % (Auto) (20-40) % [place] % (Auto) (2-11) % Eos % (Auto) (0-4) % Baso % (Auto) (0-2) % Lymph # (Auto) (1.2-4.9) X10*3/uL [place] # (Auto) (0.1-1.2) X10*3/uL Eos # (Auto) (0.0-0.4) X10*3/uL Baso # (Auto) (0.0-0.2) X10*3/uL Abs Immat Gran (auto) (0.00-0.03) X10*3/uL Absolute Neuts (auto) (2.0-8.3) x10*3/uL Absolute Nucleated RBC (0.0-0.012) X10*3/uL Nucleated RBC % (auto) (0.0-0.2) /100WBC Sodium 138 (135-145) mmol/L Potassium 4.1 (3.3-5.1) mmol/L Chloride 108 (96-108) mmol/L Carbon Dioxide 26 (22-29) mmol/L Anion Gap 8 L (12-20) BUN 27 H (9-16) mg/dL Creatinine 0.79 (0.5-1.4) mg/dL Estim Creat Clear Calc 98.7 Estimated GFR > 60 POC Glucose (60-115) mg/dL Random Glucose 217 H (60-115) mg/dL Calcium 8.6 (8.4-10.2) mg/dL Magnesium (1.6-2.6) mg/dL Total Bilirubin (0.0-1.0) mg/dL Direct Bilirubin (0.0-0.5) mg/dL AST (5-31) U/L ALT (0-31) U/L Alkaline Phosphatase (39-117) U/L Total Protein (6.5-8.0) g/dL Albumin (3.5-5.0) g/dL Lipase (8-78) U/L Urine Color Urine Appearance Urine pH (5.0-9.0) Ur Specific [place] (1.005-1.025) Urine Protein (Neg-Trace) mg/dL Urine Glucose (UA) (Negative) mg/dL Urine Ketones (Negative) mg/dL Urine Blood (Negative) Urine Nitrite (Negative) Ur Leukocyte Esterase (Negative) Influenza Type A (PCR) (Negative) Influenza Type B (PCR) (Negative) RSV RNA Qual (PCR) (Negative) SARS-CoV-2 RNA (RT-PCR) (Negative) Independent Interpretation I performed an independent interpretation of an: Plain X-Ray Interpretation: chest xray without infiltrate or consolidation Radiology Impression Discussion of test interpretation with radiology: I have reviewed the radiologist's reading. Radiologist Impression: Date of Service: 07/06/24 Procedure(s): XR chest 2V Accession Number(s): [id number] cc: Minerva Zuleta; Anny Peñaloza~ CLINICAL HISTORY: chest congestion 2 view chest x-ray Comparison: CR/SR - XR CHEST 2V - 05/06/24 13:06 EST Findings: Mild left lower lobe atelectasis. No significant pleural effusion or pneumothorax. Similar prominent/enlarged cardiac silhouette. No acute fracture. IMPRESSION: Mild left lower lobe atelectasis. External Record Review External record reviewed: Inpatient record, Office record, Outpatient record, Prior outpatient labs, Prior outpatient radiology, Primary care record and Outside ED record Chronic Conditions Patient?s care impacted by: Diabetes Social Determinants Patient?s care significantly limited by Social Determinants of Health including: Other Social Determinant of Health Critical Care Time Critical Care Time Critical Care Time: No Discharge Plan Discharge Clinical Impression: Hyperglycemia, Hypomagnesemia Patient Disposition: Home, Self-Care Instructions: Hypomagnesemia (ED), Diabetic Hyperglycemia (ED) Additional Instructions: Your workup today is reassuring. Your magnesium was slightly low today and you received supplementation in ED. You tested negative for covid, flu, rsv. Your chest xray does not demonstrate pneumonia. Discontinue steroid use. Continue monitoring your sugars at home. Follow up with your primary care provider. Return with new or worsening symptoms. In the case of an emergency call 911. Prescriptions: No Action Arnuity Ellipta 100 mcg/actuation blister with device 1 inh inhalation DAILY Qty: 30 6RF lisinopril 5 mg tablet 5 mg PO DAILY Qty: 90 0RF atorvastatin 10 mg tablet 10 mg PO BEDTIME Qty: 90 0RF sumatriptan succinate [Imitrex] 100 mg tablet 100 mg PO DAILY PRN (Reason: migraine headache) Qty: 7 4RF Rx Instructions: 100 mg orally PRN; gabapentin 100 mg capsule 100 - 400 mg PO BEDTIME 30 Days Qty: 90 3RF doxycycline hyclate 100 mg tablet 100 mg PO BID Qty: 10 0RF meloxicam 15 mg tablet 15 mg PO DAILY Qty: 30 1RF (DME) blood-glucose meter [FreeStyle Bayard Lite] Kit See Rx Instructions .ROUTE .MEDSUPPLY Qty: 1 0RF Rx Instructions: As directed (DME) FreeStyle Lite Strips Strip See Rx Instructions .ROUTE .MEDSUPPLY Qty: 100 0RF Rx Instructions: As directed (DME) lancets [FreeStyle Lancets] 28 gauge misc See Rx Instructions .ROUTE .MEDSUPPLY Qty: 100 0RF Rx Instructions: As directed hydrocortisone [Procto-Med HC] 2.5 % cream with perineal applicator 1 appl WA BEDTIME 14 Days Qty: 30 0RF Rx Instructions: Apply daily at bedtime fluticasone propionate 50 mcg/actuation spray,suspension 1 spray intranasal BID PRN (Reason: allergies) Rx Instructions: administer into each nostril metoprolol tartrate 25 mg tablet 25 mg PO DAILY acetaminophen [Tylenol Extra Strength] 500 mg tablet 1,000 mg PO Q8H PRN (Reason: back pain) Qty: 60 0RF bupropion HCl 300 mg tablet extended release 24 hr 300 mg PO DAILY albuterol sulfate 90 mcg/actuation HFA aerosol inhaler 2 puff inhalation Q4-6H PRN (Reason: shortness of breath or wheezing) Qty: 1 3RF ondansetron 4 mg tablet,disintegrating 4 mg PO Q8H PRN (Reason: nausea and vomiting) 5 Days Qty: 15 12RF docusate sodium [Colace] 100 mg capsule 100 mg PO BID 30 Days Qty: 60 3RF lidocaine 5 % adhesive patch,medicated 1 patch topical DAILY PRN (Reason: Pain) Qty: 30 0RF Rx Instructions: leave on most painful area for up to 12 hrs cholecalciferol (vitamin D3) 50 mcg (2,000 unit) capsule 50 mcg PO DAILY Qty: 90 2RF prednisone 20 mg tablet 20 mg PO QAM Qty: 5 0RF benzonatate 200 mg capsule 200 mg PO BEDTIME PRN (Reason: cough) Qty: 10 0RF omeprazole 40 mg capsule,delayed release(DR/EC) 40 mg PO BID Qty: 180 0RF Linzess 145 mcg capsule 145 mcg PO DAILY Qty: 30 0RF glycerin (child) Suppository 2 supp WA DAILY PRN (Reason: constipation) 30 Days Qty: 25 0RF Referrals: Minerva Zuleta, DEVELOPMENT TEAM LEAD-[facility] [Primary Care Provider] - Stand Alone Forms: Work/School Release Interventions: ED Discharge Assessment Last Done: 07/06/24 20:57 Discharge Date/Time: 07/06/24 20:58 Print Language: Jamaican
[2024-07-06 17:35] LABS: Alanine Aminotransferase 39 U/L (0-31); Albumin Level 3.8 g/dL (3.5-5.0); Aspartate Amino Transferase 30 U/L (5-31); Bilirubin Direct < 0.2 mg/dL (0.0-0.5); Bilirubin Total 0.2 mg/dL (0.0-1.0); Lipase 23 U/L (8-78); Magnesium 1.5 mg/dL (1.6-2.6); Total Protein 7.1 g/dL (6.5-8.0)
[2024-07-06 17:43] LABS: Alkaline Phosphatase 131 U/L (39-117)
[2024-07-06 17:47] LABS: Influenza A PCR NEGATIVE (Negative); Influenza B PCR NEGATIVE (Negative); Resp Syncy Virus RNA Qual PCR NEGATIVE (Negative); SARS COV2 PCR INHOUSE NEGATIVE (Negative)
[2024-07-06 17:59] LABS: Appearance Urine Clear; Color Urine Yellow; Glucose Urine UA Negative (Negative); Leukocyte Esterase Urine Negative (Negative); Nitrite Urine Negative (Negative); PH 5.5 (5.0-9.0); Specific Gravity - Urine >= 1.030 (1.005-1.025); Urine Blood Negative (Negative); Urine Ketones Trace mg/dL (Negative); Urine Protein Negative (Neg-Trace)
[2024-07-06 18:33] LABS: Anion Gap 8 (12-20); Blood Urea Nitrogen 27 mg/dL (9-16); Calcium 8.6 mg/dL (8.4-10.2); Carbon Dioxide 26 mmol/L (22-29); Chloride 108 mmol/L (96-108); Creatinine Clr Calc Pharmacy 98.7; Estimated Glomerular Filt Rate > 60; Glucose Random 217 mg/dL (60-115); Potassium 4.1 mmol/L (3.3-5.1); Sodium 138 mmol/L (135-145)
[2024-07-06] MEDS: Magnesium Sulfate/H2O 2 GM/50 ML PIGGYBACK IV (19:21)
[2024-07-06] MEDS: 0.9 % Sodium Chloride 1,000 ML 999 ML IV (19:38)
[2024-07-06 20:23] VITALS: BP 118/59; PULSE 62; RESP 18; TEMP 36.6; O2SAT 97
[2024-07-06 20:57] VITALS: BP 118/59; PULSE 62; RESP 18; TEMP 36.6; O2SAT 97
[2024-07-07 15:11] LABS: Glucose, Whole Blood 187 mg/dL (60-115)
== END 2024-07-06 20:58 | disposition home or self-care (01) ==
PROVIDERS: Physician Assistant Medical; Emergency Provider Internal Medicine; PCP Nurse Practitioner Family
DX: E11.65 Type 2 diabetes mellitus with hyperglycemia (principal); R09.89 Other specified symptoms and signs involving the circulatory and respiratory systems; R79.89 Other specified abnormal findings of blood chemistry; I10 Essential (primary) hypertension; R42 Dizziness and giddiness; Z79.84 Long term (current) use of oral hypoglycemic drugs; Z03.818 Encounter for observation for suspected exposure to other biological agents ruled out; Z79.899 Other long term (current) drug therapy
CPT/HCPCS: 0241U; 36415; 71046; 80048; 80076; 81003; 82947; 83690; 83735; 85025; 96365; 99284; J3475

== ENCOUNTER → 2024-07-06 17:30 | Outpatient (BNV) | payer OTHER, SELFPAY | PROVIDERS: Emergency Provider Internal Medicine; PCP Nurse Practitioner Family; Visit Provider Radiology Diagnostic Radiology | DX: R07.89 Other chest pain (principal) | CPT/HCPCS: 71046 ==

== ENCOUNTER 2024-07-26 16:16 | Emergency (ER) | payer OTHER, SELFPAY ==
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
[2024-07-26 16:18] VITALS: BP 142/86; PULSE 75; RESP 20; TEMP 37; O2SAT 99; BMI 32.0
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
[2024-07-26 19:25] VITALS: BP 122/78; PULSE 74; RESP 16; TEMP 36.8; O2SAT 98
[2024-07-26 20:37] VITALS: BP 129/72; PULSE 78; RESP 16; TEMP 36.7; O2SAT 98
== END 2024-07-26 20:39 | disposition home or self-care (01) ==
PROVIDERS: Emergency Provider Emergency Medicine Emergency Medical Services; PCP Nurse Practitioner Family
DX: S86.911A Strain of unspecified muscle(s) and tendon(s) at lower leg level, right leg, initial encounter (principal); S99.911A Unspecified injury of right ankle, initial encounter; R51.9 Headache, unspecified; M79.671 Pain in right foot; M54.2 Cervicalgia; M25.561 Pain in right knee; M54.50 Low back pain, unspecified; V43.52XA Car driver injured in collision with other type car in traffic accident, initial encounter; Y93.9 Activity, unspecified; Y92.488 Other paved roadways as the place of occurrence of the external cause; Y99.8 Other external cause status
CPT/HCPCS: 70450; 72100; 72125; 73564; 73610; 73630; 99284

== ENCOUNTER → 2024-07-26 16:26 | Outpatient (BNV) | payer OTHER, SELFPAY | PROVIDERS: PCP Nurse Practitioner Family; Visit Provider Radiology Diagnostic Radiology | DX: M54.2 Cervicalgia (principal); M25.561 Pain in right knee; M54.9 Dorsalgia, unspecified; M25.571 Pain in right ankle and joints of right foot | CPT/HCPCS: 70450; 72100; 72125; 73564; 73610; 73630 ==

== ENCOUNTER 2024-07-29 12:35 | Outpatient (AMB) | payer OTHER, SELFPAY ==
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
[2024-07-29 12:38] VITALS: BP 138/80; PULSE 65; O2SAT 98
== END 2024-07-29 13:13 | disposition home or self-care (01) ==
PROVIDERS: PCP Nurse Practitioner Family; Visit Provider Physician Assistant
DX: M54.50 Low back pain, unspecified (principal); V89.2XXA Person injured in unspecified motor-vehicle accident, traffic, initial encounter; M54.6 Pain in thoracic spine

== ENCOUNTER → 2024-07-29 12:35 | Outpatient (BNVA) | payer OTHER, SELFPAY | PROVIDERS: PCP Nurse Practitioner Family; Visit Provider Physician Assistant | DX: Z13.89 Encounter for screening for other disorder (principal) ==

== ENCOUNTER 2024-08-05 09:42 | Outpatient (AMB) | payer OTHER, SELFPAY ==
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
[2024-08-05 09:54] VITALS: BP 134/72; PULSE 68; RESP 13; TEMP 36.3; O2SAT 98; BMI 33.4
--- OUTSIDE RECORDS SUMMARY | 2024-08-05 10:53 | XMS_ITS | Clinical Summary ---
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
== END 2024-08-05 10:46 | disposition home or self-care (01) ==
LOC: HO.HMCFM 09:42
PROVIDERS: PCP Nurse Practitioner Family; Visit Provider Nurse Practitioner Family
DX: M25.561 Pain in right knee (principal); M25.571 Pain in right ankle and joints of right foot; Z09 Encounter for follow-up examination after completed treatment for conditions other than malignant neoplasm; V89.2XXA Person injured in unspecified motor-vehicle accident, traffic, initial encounter

== ENCOUNTER → 2024-08-05 09:42 | Outpatient (BNVA) | payer OTHER, SELFPAY | PROVIDERS: PCP Nurse Practitioner Family; Visit Provider Nurse Practitioner Family | DX: N64.3 Galactorrhea not associated with childbirth (principal); E11.8 Type 2 diabetes mellitus with unspecified complications; Z09 Encounter for follow-up examination after completed treatment for conditions other than malignant neoplasm; M25.561 Pain in right knee; M79.671 Pain in right foot; M25.571 Pain in right ankle and joints of right foot | CPT/HCPCS: 99212 ==

== ENCOUNTER 2024-08-05 10:42 | Outpatient (AMB) | payer OTHER, SELFPAY ==
--- OUTSIDE RECORDS SUMMARY | 2024-08-05 12:40 | XMS_ITS | Clinical Summary ---
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
--- NOTE | 2024-08-05 17:07 | MHC.PC.OV ---
Intake Visit Reasons: Nipple discharge Allergies hydrocodone [From VICODIN] Allergy (Mild, Verified 08/05/24 17:07) HIVES oxycodone [From PERCOCET] Allergy (Mild, Verified 08/05/24 17:07) HIVES azithromycin [AZITHROMYCIN] Allergy (Unknown, Verified 08/05/24 17:07) NAUSEA & VOMITING erythromycin base [From ERYTHROCIN] Allergy (Unknown, Verified 08/05/24 17:07) NAUSEA & VOMITING metformin Adverse Reaction (Mild, Uncoded 08/05/24 17:07) Gastrointestinal Upset Medication List - Last Reconciled 08/05/24 by Minerva Zuleta, QUALITY CONTROL SPECIALIST-BC acetaminophen (Tylenol Extra Strength) 1,000 mg (2 x 500 mg) PO Q8H PRN albuterol sulfate 90 mcg/actuation 2 puffs inhalation Q4-6H PRN atorvastatin 10 mg PO BEDTIME blood sugar diagnostic (FreeStyle Lite Strips) As directed blood-glucose meter (FreeStyle [place] Lite kit) As directed bupropion HCl XL 300 mg PO DAILY cholecalciferol (vitamin D3) 50 mcg PO DAILY cyclobenzaprine 10 mg PO TID PRN docusate sodium (Colace) 100 mg PO BID 30 days fluticasone furoate 100 mcg/actuation (Arnuity Ellipta) 1 inh inhalation DAILY fluticasone propionate 50 mcg/actuation 1 spray intranasal BID PRN gabapentin 100 - 400 mg (1 - 4 x 100 mg) PO BEDTIME 30 days glycerin (child) 2 supp [place] DAILY PRN 30 days hydrocortisone 2.5% (Procto-Med HC) 1 appl [place] BEDTIME 14 days lancets (FreeStyle Lancets) As directed lidocaine 5% 1 patch topical DAILY PRN linaclotide (Linzess) 145 mcg PO DAILY lisinopril 5 mg PO DAILY meloxicam 15 mg PO DAILY metoprolol tartrate 25 mg PO DAILY omeprazole 40 mg PO BID ondansetron 4 mg PO Q8H PRN 5 days sumatriptan succinate (Imitrex) 100 mg PO DAILY PRN Tobacco use date assessed: 08/05/24 Dental Screening Dental Screen Date: 08/05/24 HPI HPI Comments History of Present Illness Details 43-year-old female with diabetes 2, asthma, anxiety, MDD, constipation, bipolar 1 disorder, sleep apnea, renal stones, PTSD, lupus, hypertension, fibromyalgia, 3.6 cm hypodense lesion in the liver at the junction of the right and left hepatic lobes with thin rim calcification along the right lateral wall of the lesion, CAD, Small fat-containing anterior midline hernia , diverticulosis, fatty liver, splenomegaly, osteoarthritis multiple joints, vitamin d def Status post hysterectomy, 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 RTO 6 mo Pain Mgmt Sleep Medicine Counselor/Nurse [facility] Nutrition first appt 06/10/24 - The patient is a 43-year-old female presenting with bilateral black nipple discharge. - The discharge commenced after the patient underwent her most recent mammogram. - The mammogram was initially conducted on 10/17/23, and additional imaging views were completed on 11/30/23. - A breast biopsy was performed subsequently. Recommendation for 1 year Mammo. Denies any breast pain or changes. She also has DM 2. Not on meds. Diet controlled. Has needed to take oral steroids which has increased her blood sugars. Wonders what can be done as she is told to take extra insulin and watch carbs while taking steroids but she is not on insulin and tries to limit carbs at baseline. Plan: Refer to [facility] for eval and tx Do not stimulate breasts If able take photo of discharge to show the surgeon In regards to DM, she wishes to not take meds; she is due for repeat a1c next month; depending on this, she may or may not need medications. Advised to abstain from oral steroids if at all possible as this will cause a spike in her glucose. FU as scheduled w/ labs 1 week before, sooner PRN Patient was informed and verbally consented to the use of an ambient scribe for clinic note documentation during this visit. Total time spent caring for the patient today was 30 minutes. This includes time spent before the visit reviewing the chart, time spent during the visit, and time spent after the visit on documentation, reviewing laboratory results, diagnostic imaging, medications, performing a medically necessary evaluation, counseling on diagnoses, care coordination, ordering appropriate tests, ordering appropriate medications, review of tests performed by other providers, reporting test results with the patient, communication with other healthcare providers. [facility] Medical History Acute respiratory disease Nausea with vomiting, unspecified Nephrolithiasis Periodic limb movements of sleep Anemia Asthma Sleep apnea Migraine Sinusitis Breast pain, left Hypertension Sleep apnea Bipolar 1 disorder Depression Anxiety delivery delivered Diabetes Sciatica Kidney infection Kidney stones HTN (hypertension) Fibromyalgia Lupus Surgical History Hx of colonoscopy History of esophagogastroduodenoscopy (EGD) H/O section H/O: hysterectomy Family History Maternal Grandmother HTN (hypertension) Diabetes Cancer Mother Ovarian cancer Other FH: mental illness Substance use Social History Housing: Apartment Are you a primary career advisor to a significant other at home: No Do you presently have visiting nurse or other home services: No Alcohol intake: never Patient Tobacco Use Status: Current everyday Tobacco user Tobacco use type: Smokeless Tobacco e-Cigarette/Vaping Use: Currently Using Substance Use Type: Marijuana Advance Directives Date on File: 02/02/24 service: No Current occupational status: employed 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 Rob Parry, Tana Rowley, Gen Mcdonald and colleagues, with an educational ezra from [employer]. Physical exam (Primary Care) Tobacco/Smoking Status: Tobacco use Status Tobacco use date assessed 08/05/24 08/05/24 09:52 Patient Tobacco Use Status Current everyday Tobacco 08/05/24 09:47 Tobacco use type Smokeless Tobacco 08/05/24 09:47 e-Cigarette/Vaping Use Currently Using 08/05/24 09:47 Thrive Assessment: Date of Thrive Assessment Date Thrive assessed 04/26/24 08/05/24 09:47 Coding Level of Care Code Est Pt Level 4 (62904) Complex EM visit Add On G2211 Diagnoses Galactorrhea N64.3 DM type 2 causing complication E11.8 Assessment & Plan Assessment & Plan (1) Galactorrhea: Code(s): N64.3 - Galactorrhea not associated with childbirth Category: Medical (2) DM type 2 causing complication: Code(s): E11.8 - Type 2 diabetes mellitus with unspecified complications Category: Medical Plan . Orders: Referrals Breast Surgery Referral N64.3 - Galactorrhea not associated with childbirth
== END 2024-08-05 10:43 | disposition home or self-care (01) ==
LOC: HO.HMCFM 10:42
PROVIDERS: PCP Nurse Practitioner Family; Visit Provider Nurse Practitioner Family
DX: E11.8 Type 2 diabetes mellitus with unspecified complications (principal); N64.3 Galactorrhea not associated with childbirth

== ENCOUNTER 2024-08-27 06:02 | Outpatient (REF) | payer OTHER, SELFPAY ==
--- NOTE | ~2024-08-27 | FL_ITS ---
EXAMINATION: FL GUIDANCE ONLY HISTORY: M54.50 - Low back pain, unspecified COMPARISON: None available. TECHNIQUE: Fluoroscopy time: 0.6 minutes. Cumulative Dose: 27.5 mGy. DAP: 0.446 mGym2 Images: 11. FINDINGS: Portable fluoroscopic spot films of the lumbar spine in the AP projection demonstrate needles and contrast material in the regions of the bilateral L3-4, L4-5, and L5-S1 facet joints. FL/FL guidance in treatment room IMPRESSION: Fluoroscopy during procedure. Please see procedure report for additional information. Electronically signed by: Rob Jolley MD 08/27/2024 10:55 AM EDT
== END 2024-08-27 06:03 | disposition home or self-care (01) ==
LOC: CF 06:02
PROVIDERS: Visit Provider Anesthesiology
DX: M54.50 Low back pain, unspecified (principal)
CPT/HCPCS: 64493; 64494; J2003; J2795; Q9967

== ENCOUNTER 2024-08-27 07:14 | Outpatient (AMB) | payer OTHER, SELFPAY ==
--- OUTSIDE RECORDS SUMMARY | 2024-08-27 07:16 | XMS_ITS | Clinical Summary ---
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
[2024-08-27 07:25] VITALS: BP 126/82; PULSE 73; RESP 16; O2SAT 98
--- NOTE | 2024-08-27 07:25 | MHC.OFFVIS ---
Vital Signs 08/27/24 07:25 08/27/24 08:00 BP 126/82 126/78 Blood Pressure Location Lt brachial Lt brachial Position Sitting Sitting Respiration 16 16 Pulse 73 65 Pulse Source Pulse Oximeter Pulse Oximetry (%) 98 Oxygen Delivery Method Room Air Intake Visit Reasons: BILATERAL DIAGNOSTIC L3, L4, DRL5 MBB Bulldozer Mechanic Required: No Allergies hydrocodone [From VICODIN] Allergy (Mild, Verified 08/27/24 07:25) HIVES oxycodone [From PERCOCET] Allergy (Mild, Verified 08/27/24 07:25) HIVES azithromycin [AZITHROMYCIN] Allergy (Unknown, Verified 08/27/24 07:25) NAUSEA & VOMITING erythromycin base [From ERYTHROCIN] Allergy (Unknown, Verified 08/27/24 07:25) NAUSEA & VOMITING metformin Adverse Reaction (Mild, Uncoded 08/27/24 07:25) Gastrointestinal Upset Medication List - Last Reconciled 08/27/24 by Ruthy Link LPN acetaminophen (Tylenol Extra Strength) 1,000 mg (2 x 500 mg) PO Q8H PRN albuterol sulfate 90 mcg/actuation 2 puffs inhalation Q4-6H PRN atorvastatin 10 mg PO BEDTIME blood sugar diagnostic (FreeStyle Lite Strips) As directed blood-glucose meter (FreeStyle [place] Lite kit) As directed bupropion HCl XL 300 mg PO DAILY cholecalciferol (vitamin D3) 50 mcg PO DAILY cyclobenzaprine 10 mg PO TID PRN docusate sodium (Colace) 100 mg PO BID 30 days fluticasone furoate 100 mcg/actuation (Arnuity Ellipta) 1 inh inhalation DAILY fluticasone propionate 50 mcg/actuation 1 spray intranasal BID PRN gabapentin 100 - 400 mg (1 - 4 x 100 mg) PO BEDTIME 30 days glycerin (child) 2 supp [place] DAILY PRN 30 days hydrocortisone 2.5% (Procto-Med HC) 1 appl [place] BEDTIME 14 days lancets (FreeStyle Lancets) As directed lidocaine 5% 1 patch topical DAILY PRN linaclotide (Linzess) 145 mcg PO DAILY lisinopril 5 mg PO DAILY meloxicam 15 mg PO DAILY metoprolol tartrate 25 mg PO DAILY omeprazole 40 mg PO BID ondansetron 4 mg PO Q8H PRN 5 days sumatriptan succinate (Imitrex) 100 mg PO DAILY PRN PFSH Medical History Acute respiratory disease Nausea with vomiting, unspecified Nephrolithiasis Periodic limb movements of sleep Anemia Asthma Sleep apnea Migraine Sinusitis Breast pain, left Hypertension Sleep apnea Bipolar 1 disorder Depression Anxiety delivery delivered Diabetes Sciatica Kidney infection Kidney stones HTN (hypertension) Fibromyalgia Lupus Surgical History Hx of colonoscopy History of esophagogastroduodenoscopy (EGD) H/O section H/O: hysterectomy Family History Maternal Grandmother HTN (hypertension) Diabetes Cancer Mother Ovarian cancer Other FH: mental illness Substance use Social History Housing: Apartment Are you a primary day care provider to a significant other at home: No Do you presently have visiting nurse or other home services: No Alcohol intake: never Patient Tobacco Use Status: Current everyday Tobacco user Tobacco use type: Smokeless Tobacco e-Cigarette/Vaping Use: Currently Using Substance Use Type: Marijuana Advance Directives Date on File: 02/02/24 service: No Current occupational status: employed 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 ? ?Informed consent was explained to the patient. All questions were explained and? answered.? The patient was taken inside the operating room where she was positioned prone on the operating table. Time-out was performed delineating correct site, side, the nature of the procedure, patient's allergy, . All operating room staff was participating in OR time-out procedure. ? ? The lower back was prepped with ChloraPrep and draped with sterile utility towels.? C-arm was brought over the operating field and sq picture of L4-, L5 vertebra and S1 AREA were delineated on the screen.? Point of interest were delineated as confluence of superior articular process of L4 and L5 vertebra bilaterally with corresponding transverse processes as well as confluence of the sacral alae bilaterally with superior articular process of S1.? The projection of the point of interest to the skin were injected with the small amount of local anesthetic lidocaine 2% mixed with ropivacaine 0.5% 1-1 approximately 1 cc.? After that 22 gauge 3.5 inch spinal needle was driven sequentially to the points of interest in tunnel vision fashion. After needles gently contacted the bone at the point of interests the needle was injected with small amount of the contrast.? The injection of the contrast did not demonstrate any intravascular or intrathecal spread of the contrast.? After that injection of the? ropivacaine 0.5%-1cc was performed at each needle location.?After that the needles were removed and Bandaids were applied. ? Upon completion of the injections? needle was? removed and sterile Band-Aids were applied.? The patient tolerated procedure very well. Orders: Orders FL guidance in treatment room Today M54.50 - Low back pain, unspecified Coding Level of Care Code Procedure Only Diagnoses Spondylosis of lumbar region without myelopathy or radiculopathy M47.816
[2024-08-27 08:00] VITALS: BP 126/78; PULSE 65; RESP 16
== END 2024-08-27 08:00 | disposition home or self-care (01) ==
LOC: HO.PMCPRC 07:14
PROVIDERS: PCP Nurse Practitioner Family; Visit Provider Anesthesiology
DX: M47.816 Spondylosis without myelopathy or radiculopathy, lumbar region (principal)
CPT/HCPCS: 64493; 64494

== ENCOUNTER 2024-08-30 09:30 | Outpatient (AMB) | payer OTHER, SELFPAY ==
[2024-08-30 09:33] VITALS: BP 154/88; PULSE 92; O2SAT 98; BMI 33.1
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
--- OUTSIDE RECORDS SUMMARY | 2024-08-30 09:44 | XMS_ITS | Clinical Summary ---
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
== END 2024-08-30 09:47 | disposition home or self-care (01) ==
LOC: HO.PMC 09:31
PROVIDERS: PCP Nurse Practitioner Family; Visit Provider Nurse Practitioner Family
DX: M47.816 Spondylosis without myelopathy or radiculopathy, lumbar region (principal); M53.3 Sacrococcygeal disorders, not elsewhere classified; M54.50 Low back pain, unspecified
CPT/HCPCS: 99213; G2211

== ENCOUNTER → 2024-08-30 09:30 | Outpatient (BNVA) | payer OTHER, SELFPAY | PROVIDERS: PCP Nurse Practitioner Family; Visit Provider Registered Nurse Emergency ==

== ENCOUNTER 2024-09-04 12:28 | Outpatient (AMB) | payer OTHER, SELFPAY ==
--- NOTE | 2024-09-04 12:32 | A.OFFPC_ITS ---
Vital Signs 3 09/04/24 12:40 Height 5 ft 6 in Weight 207 lb BMI 33.4 BP 138/78 Blood Pressure Location Lt brachial Position Sitting Respiration 13 Pulse 58 Pulse Source Pulse Oximeter Temp 97.3 F Temp Source Oral Pulse Oximetry (%) 99 Oxygen Delivery Method Room Air Intake Visit Reasons: 3 mo 30 min routine fu Intake Note: Routine follow up. Patient c/o constipation, diarrhea and regular bowel movement for like two days only and then goes back to constipation. Metal Buffer Required: No Allergies hydrocodone [From VICODIN] Allergy (Mild, Verified 09/04/24 12:54) HIVES oxycodone [From PERCOCET] Allergy (Mild, Verified 09/04/24 12:54) HIVES azithromycin [AZITHROMYCIN] Allergy (Unknown, Verified 09/04/24 12:54) NAUSEA & VOMITING erythromycin base [From ERYTHROCIN] Allergy (Unknown, Verified 09/04/24 12:54) NAUSEA & VOMITING metformin Adverse Reaction (Mild, Uncoded 09/04/24 12:32) Gastrointestinal Upset Medication List - Last Reconciled 09/04/24 by DEBRA TravisP- acetaminophen (Tylenol Extra Strength) 1,000 mg (2 x 500 mg) PO Q8H PRN albuterol sulfate 90 mcg/actuation 2 puffs inhalation Q4-6H PRN atorvastatin 10 mg PO BEDTIME blood sugar diagnostic (FreeStyle Lite Strips) As directed blood-glucose meter (FreeStyle [place] Lite kit) As directed bupropion HCl XL 300 mg PO DAILY cholecalciferol (vitamin D3) 50 mcg PO DAILY cyclobenzaprine 10 mg PO TID PRN docusate sodium (Colace) 100 mg PO BID 30 days fluticasone furoate 100 mcg/actuation (Arnuity Ellipta) 1 inh inhalation DAILY fluticasone propionate 50 mcg/actuation 1 spray intranasal BID PRN gabapentin 100 - 400 mg (1 - 4 x 100 mg) PO BEDTIME 30 days glycerin (child) 2 supp DE DAILY PRN 30 days hydrocortisone 2.5% (Procto-Med HC) 1 appl DE BEDTIME 14 days lancets (FreeStyle Lancets) As directed lidocaine 5% 1 patch topical DAILY PRN linaclotide (Linzess) 145 mcg PO DAILY lisinopril 5 mg PO DAILY meloxicam 15 mg PO DAILY metoprolol tartrate 25 mg PO DAILY omeprazole 40 mg PO BID ondansetron 4 mg PO Q8H PRN 5 days sumatriptan succinate (Imitrex) 100 mg PO DAILY PRN Tobacco use date assessed: 09/04/24 Dental Screening Dental Screen Date: 09/04/24 Did you have a dental visit in the last 12 months?: Yes Did you have a dental problem in the last 6 months where you did not have access to dental care?: No Was dental information given to patient?: Patient has dentist HPI HPI Comments 2 History of Present Illness0 Details 43-year-old female with diabetes 2, asth ma, anxiety, MDD, constipation, bipolar 1 disorder, sleep apnea, renal stones, PTSD, lupus, hypertension, fibromyalgia, 3.6 cm hypodense lesion in the liver at the junction of the right and left hepatic lobes with thin rim calcification along the right lateral wall of the lesion, CAD, Small fat-containing anterior midline hernia , diverticulosis, fatty liver, splenomegaly, osteoarthritis multiple joints, vitamin d def 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 - Managed vitamin D deficiency with 50 m cg daily. - Hypertension treated with lisinopril 5 mg, metoprolol 25 mg. - GERD treated with omeprazole 40 mg twi ce daily; nighttime dose missed occasionally. - Hyperlipidemia treated with atorvastat in 10 mg. - Type 2 Diabetes Mellitus, controlled b y diet; A1c decreased from 7.3% to 7.2%. - Managed chronic back pain with lidocai ne, meloxicam, cyclobenzaprine, gabapentin. - Noted abnormal breast discharge since July, surgical consultation scheduled in September. - Reports bug bites with dermatitis, ine ffective [id number] antibiotic cream. Exposed to ants at work. - Constipation cycles followed by explos jluis diarrhea, unalleviated by Linzess, Dopalex, MiraLax. - Recent bloody stools, exacerbated hemo rrhoids;next GI appt 12/2024. I have sent message to GI requesting earlier appointment Review of Systems - Constitutional: Reports no fever or we ight loss. - Eyes: Denies changes in vision. - Cardiovascular: Reports use of lisinop ril and metoprolol. - Gastrointestinal: Reports constipation , explosive diarrhea, bloody stools, nausea; denies vomiting. - Musculoskeletal: Reports chronic back pain; managed with medications. - Dermatologic: Reports bug bites with a ssociated dermatitis. - Endocrine: Denies recent hypoglycemic episodes. - Psychiatric: Reports mood managed with bupropion. Physical Exam General: Well developed, well nourished, in no acute distress. Appears stated age. Accompanied by Head: Normocephalic, atraumatic. Eyes: Pupils are equal, round and reactive to light and accommodation. scleras clear bilat. Lungs: Clear to auscultation bilaterally. No rales, rhonchi or wheeze noted. Good air flow in all germain. Heart: Regular rate and rhythm. No murmurs, click, rubs or gallops are noted. Abdomen: Bowel sounds present in all quadrants. Tender generally speaking w/o rebound; worse over RUQ and epigastrum. See images below of blood from rectum Pulses: Peripheral pulses are equal and palpable bilaterally. Extremities: No clubbing, cyanosis nor edema is noted. Bug bites noted on arms, breast, chest, and legs (see images below) Psych: Mood and affect appropriate. Breast: able to express black ink like fluid w/ some bloody like d/c from Left breast w/ self manipulation. Results - Labs: A1c 7.2% (down from 7.3%). Discussion Notes I discussed with the patient the management of her chronic conditions and the evaluation of her gastrointestinal symptoms and breast discharge. We reviewed the importance of consistent medication use for hypertension, GERD, and hyperlipidemia. I recommended a topical steroid cream for the bug bite dermatitis. We discussed the need for closer monitoring of her gastrointestinal symptoms, and I will contact GI to expedite her appointment. I addressed the abnormal breast discharge, with a referral already made to surgery for further evaluation. The patient was advised to continue current medications and dietary modifications for diabetes management. Follow-up appointments were discussed, including upcoming women's health and GI follow-ups. We also reviewed the need for further evaluation if symptoms worsen. Assessment and Plan 1. Vitamin D deficiency - Continue daily supplementation. 2. Essential Hypertension - Continue current antihypertensives. 3. Chronic GERD - Emphasize medication adherence. 4. Hyperlipidemia - Maintain atorvastatin therapy. 5. Type 2 Diabetes Mellitus - Continue dietary management. 6. Chronic back pain - Maintain current medications. 7. Abnormal breast discharge - Surgical evaluation pending. 8. Bug bite dermatitis - Prescribe steroid cream. 9. Constipation with diarrhea - Expedite GI consult. 10. Hemorrhoids - Monitor symptoms. - GI referal Patient Instructions - Take all medications as prescribed, in cluding Vitamin D, lisinopril, metoprolol, omeprazole, atorvastatin, and pain management medications. - Use the prescribed steroid cream for t he rash as directed. - Follow a diet plan as advised for diab etes management. - Monitor bowel movements and report any significant changes. - Attend all scheduled follow-up appoint ments, including women's health and GI evaluations. - Contact the office if symptoms worsen or new symptoms develop. RTO 3 months CPE sooner PRN Consent Patient was informed and verbally consented to the use of an ambient scribe for clinic note documentation during this visit. Total time spent caring for the patient today was 50 minutes. This includes time spent before the visit reviewing the chart, time spent during the visit, and time spent after the visit on documentation, reviewing laboratory results, diagnostic imaging, medications, performing a medically necessary evaluation, counseling on diagnoses, care coordination, ordering appropriate tests, ordering appropriate medications, review of tests performed by other providers, reporting test results with the patient, communication with other healthcare providers. [facility] Medical History Acute respiratory disease Nausea with vomiting, unspecified Nephrolithiasis Periodic limb movements of sleep Anemia Asthma Sleep apnea Migraine Sinusitis Breast pain, left Hypertension Sleep apnea Bipolar 1 disorder Depression Anxiety delivery delivered Diabetes Sciatica Kidney infection Kidney stones HTN (hypertension) Fibromyalgia Lupus Surgical History Hx of colonoscopy History of esophagogastroduodenoscopy (EGD) H/O section H/O: hysterectomy Family History Maternal Grandmother HTN (hypertension) Diabetes Cancer Mother Ovarian cancer Other FH: mental illness Substance use Social History Housing: Apartment Are you a primary long term care pharmacist to a significant other at home: No Do you presently have visiting nurse or other home services: No Alcohol intake: never Patient Tobacco Use Status: Current everyday Tobacco user Tobacco use type: Smokeless Tobacco e-Cigarette/Vaping Use: Currently Using Substance Use Type: Marijuana Advance Directives Date on File: 02/02/24 service: No Current occupational status: employed 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 1. Little interest or pleasure in doing things: not at all 2. Feeling down, depressed, or hopeless: not at all 3. Trouble falling or staying asleep, or sleeping too much: not at all 4. Feeling tired or having little energy: not at all 5. Poor appetite or overeating: not at all 6. Feeling bad about yourself - or that you are a failure or have let yourself or your family down: not at all 7. Trouble concentrating on things, such as reading the newspaper or watching television: not at all 8. Moving or speaking so slowly that other people could have noticed. Or the opposite - being so fidgety or restless that you have been moving around a lot more than usual: not at all 9. Thoughts that you would be better off or of hurting yourself in some way: not at all Total score: 0 Depression Screening Interpretation: Negative Depression Screening Done: Yes 72533 - PHQ-9 Billing: Yes Source: Developed by Drs. Rob Parry, Tana Rowley, Gen Mcdonald and colleagues, with an educational ezra from [employer]. Thrive Questionnaire Date Thrive assessed: 09/04/24 I am a: Patient What is your living situation today?: I have a steady place to live Within the past 12 months, did the food you bought not last and you didn't have the money to get more?: Sometimes True Within the past 12 months, did you worry whether your food would run out before you got money to buy more?: Sometimes True Do you have trouble paying for medicines?: No Do you have trouble getting transportation to medical appointments?: No Do you have trouble paying your heating and electricity bill?: Yes Do you have trouble taking care of your child, family member or friend?: No Do you have trouble with day-to-day activities such as bathing, preparing meals, shopping, managing finances, etc.?: No Are you currently unemployed and looking for a job?: No Are you interested in more education?: No Please select the resources that you would like help with: None THRIVE Score: 3 JONATHON-7 AMB Questionnaire JONATHON-7 Date JONATHON - 7 assessed: 09/04/24 Feeling nervous, anxious, or on edge: 0 = Not at all Not being able to stop or control worryin = Not at all Worrying too much about different things: 0 = Not at all Trouble relaxin = Not at all Being so restless that it is hard to sit still: 0 = Not at all Becoming easily annoyed or irritable: 0 = Not at all Feeling afraid as if something awful might happen: 0 = Not at all Total JONATHON-7 score (0-4 normal; 5-9 mild; 10-14 moderate; 15-21 severe): 0 Source: Developed by Drs. Rob Parry, Tana Rowley, Gen Mcdonald and colleagues, with an educational ezra from [employer]. JONATHON-7 Assessment Billing JONATHON-7 Assessment Tool: JONATHON-7 Assessment 42176 Physical exam (Primary Care) Vital Signs: Last Vital Signs Temp 97.3 F 09/04/24 12:40 Pulse 58 09/04/24 12:40 Resp 13 09/04/24 12:40 BP 138/78 09/04/24 12:40 Pulse Ox 99 09/04/24 12:40 Oxygen Delivery Method Room Air 09/04/24 12:40 BMI result Body Mass Index 33.4 Tobacco/Smoking Status: Tobacco use Status Tobacco use date assessed 09/04/24 09/04/24 12:33 Patient Tobacco Use Status Current everyday Tobacco 09/04/24 12:33 Tobacco use type Smokeless Tobacco 09/04/24 12:33 e-Cigarette/Vaping Use Currently Using 09/04/24 12:33 PHQ-9: PHQ-9 Score PHQ-9: Total score 0 09/04/24 15:46 Depression Screening Interpretation: Negative Thrive Assessment: Date of Thrive Assessment Date Thrive assessed 09/04/24 09/04/24 12:45 Results AMB Hemoglobin A1c 2 AMB Hemoglobin A1c 7.2 % Last Edit by Huseyin Hernandez MA on 09/04/24 12:59 Results Reviewed Results Reviewed: Laboratory Last Values Hgb A1c (Clinic) 7.2 % (4.0-6.0) H 09/04/24 12:44 Coding Level of Care Code Est Pt Level 5 (33515) Complex EM visit Add On G2211 Diagnoses DM type 2 causing complication E11.8 Galactorrhea N64.3 Insect bite, unspecified site, initial encounter W57.XXXA Encounter type: initial encounter Site of insect bite: unspecified site Chronic constipation K59.09 Bleeding hemorrhoids K64.9 Right upper quadrant abdominal pain R10.11 Abdominal location: right upper quadrant Bipolar 1 disorder F31.9 Hemorrhoids, unspecified hemorrhoid type K64.9 Hemorrhoid type: unspecified Hypertension due to endocrine disorder I15.2 Hypertension type: secondary to endocrine disorders Moderate episode of recurrent major depressive disorder F33.1 Major depression episode severity: moderate Class 2 severe obesity due to excess calories with serious comorbidity and body mass index (BMI) of 36.0 to 36.9 in adult E66.812; E66.01; Z68.36 Obesity type: due to excess calories Obesity classification: adult class 2 (BMI 35 - 39.9) Body mass index: BMI 36.0-36.9 Vitamin D deficiency E55.9 Additional Codes JONATHON-7 Assessment Billing - JONATHON-7 Assessment Tool: JONATHON-7 Assessment 95570 ([id number]) PHQ-9 - 59229 - PHQ-9 Billing: Yes ([id number]) Assessment & Plan Assessment & Plan (1) DM type 2 causing complication: Code(s): E11.8 - Type 2 diabetes mellitus with unspecified complications Category: Medical (2) Galactorrhea: Code(s): N64.3 - Galactorrhea not associated with childbirth Category: Medical (3) Insect bites: Code(s): W57.XXXA - Bitten or stung by nonvenomous insect and other nonvenomous arthropods, initial encounter Category: Medical Qualifiers: Encounter type: initial encounter Site of insect bite: unspecified site Qualified Code(s): W57.XXXA - Bitten or stung by nonvenomous insect and other nonvenomous arthropods, initial encounter (4) Chronic constipation: Code(s): K59.09 - Other constipation Category: Medical (5) Bleeding hemorrhoids: Code(s): K64.9 - Unspecified hemorrhoids Category: Medical (6) Abdominal pain: Code(s): R10.9 - Unspecified abdominal pain Category: Medical Qualifiers: Abdominal location: right upper quadrant Qualified Code(s): R10.11 - Right upper quadrant pain (7) Bipolar 1 disorder: Code(s): F31.9 - Bipolar disorder, unspecified Category: Medical (8) Hemorrhoid: Code(s): K64.9 - Unspecified hemorrhoids Category: Medical Qualifiers: Hemorrhoid type: unspecified Qualified Code(s): K64.9 - Unspecified hemorrhoids (9) HTN (hypertension): Code(s): I10 - Essential (primary) hypertension Category: Medical Qualifiers: Hypertension type: secondary to endocrine disorders Qualified Code(s): I15.2 - Hypertension secondary to endocrine disorders (10) MDD (major depressive disorder), recurrent episode: Code(s): F33.9 - Major depressive disorder, recurrent, unspecified Category: Medical Qualifiers: Major depression episode severity: moderate Qualified Code(s): F33.1 - Major depressive disorder, recurrent, moderate (11) Obesity with serious comorbidity: Comment: with dm and htn Code(s): E66.9 - Obesity, unspecified Category: Medical Qualifiers: Obesity type: due to excess calories Obesity classification: adult class 2 (BMI 35 - 39.9) Body mass index: BMI 36.0-36.9 Qualified Code(s): E 66.812 - Obesity, class 2; E66.01 - Morbid (severe) obesity due to excess calories; Z68.36 - Body mass index [BMI] 36.0-36.9, adult (12) Vitamin D deficiency: Code(s): E55.9 - Vitamin D deficiency, unspecified Category: Medical Plan . Orders: Orders 2 Complete Blood Count no Diff Today E11.8 - Type 2 diabetes mellitus with unspecified complications, K64.9 - Unspecified hemorrhoids Comprehensive Met. Panel Today E11.8 - Type 2 diabetes mellitus with unspecified complications, K64.9 - Unspecified hemorrhoids AMB Hemoglobin A1c Today E11.8 - Type 2 diabetes mellitus with unspecified complications, Z13.9 - Encounter for screening, unspecified Medications: New 2 betamethasone dipropionate 0.05% 1 appl topical DAILY PRN 45 grams 0RF skin irritation metoprolol tartrate 25 mg PO DAILY 90 tabs 0RF Changed 2 From blood sugar diagnostic (FreeStyle Lite Strips) As directed 100 ea 0RF E11.9 - Type 2 diabetes mellitus without complications To blood sugar diagnostic (FreeStyle Lite Strips) twice per day 100 ea 12RF E11.9 - Type 2 diabetes mellitus without complications Refilled 2 lancets (FreeStyle Lancets) As directed 100 ea 0RF E11.9 - Type 2 diabetes mellitus without complications atorvastatin 10 mg PO BEDTIME 90 tabs 0RF lisinopril 5 mg PO DAILY 90 tabs 0RF
[2024-09-04 12:40] VITALS: BP 138/78; PULSE 58; RESP 13; TEMP 36.3; O2SAT 99; BMI 33.4
--- OUTSIDE RECORDS SUMMARY | 2024-09-04 13:10 | XMS_ITS | Clinical Summary ---
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
== END 2024-09-04 13:28 | disposition home or self-care (01) ==
LOC: HO.HMCFM 12:29
PROVIDERS: PCP Nurse Practitioner Family; Visit Provider Nurse Practitioner Family
DX: E11.8 Type 2 diabetes mellitus with unspecified complications (principal); F31.9 Bipolar disorder, unspecified; E66.01 Morbid (severe) obesity due to excess calories; Z68.36 Body mass index [BMI] 36.0-36.9, adult; N64.3 Galactorrhea not associated with childbirth; W57.XXXA Bitten or stung by nonvenomous insect and other nonvenomous arthropods, initial encounter; K59.09 Other constipation; K64.9 Unspecified hemorrhoids; R10.11 Right upper quadrant pain; I15.2 Hypertension secondary to endocrine disorders

== ENCOUNTER → 2024-09-04 12:28 | Outpatient (BNVA) | payer OTHER, SELFPAY | PROVIDERS: PCP Nurse Practitioner Family; Visit Provider Nurse Practitioner Family | DX: E11.8 Type 2 diabetes mellitus with unspecified complications (principal); N64.3 Galactorrhea not associated with childbirth; T14.8XXA Other injury of unspecified body region, initial encounter; K59.09 Other constipation; K64.9 Unspecified hemorrhoids; R10.11 Right upper quadrant pain; F31.9 Bipolar disorder, unspecified; I15.2 Hypertension secondary to endocrine disorders; F33.1 Major depressive disorder, recurrent, moderate; E66.812 Obesity, class 2; E66.01 Morbid (severe) obesity due to excess calories; Z68.36 Body mass index [BMI] 36.0-36.9, adult; E55.9 Vitamin D deficiency, unspecified; W57.XXXA Bitten or stung by nonvenomous insect and other nonvenomous arthropods, initial encounter; Y93.9 Activity, unspecified; Y92.9 Unspecified place or not applicable; Y99.9 Unspecified external cause status | CPT/HCPCS: 83036; 96127; 99212 ==

== ENCOUNTER 2024-09-04 13:41 | Outpatient (REF) | payer OTHER, SELFPAY ==
[2024-09-04 17:55] LABS: Alanine Aminotransferase 36 U/L (0-31); Alkaline Phosphatase 120 U/L (39-117); Anion Gap 11 (12-20); Aspartate Amino Transferase 31 U/L (5-31); Bilirubin Total 0.3 mg/dL (0.0-1.0); Blood Urea Nitrogen 13 mg/dL (9-16); Calcium 8.6 mg/dL (8.4-10.2); Carbon Dioxide 28 mmol/L (22-29); Chloride 104 mmol/L (96-108); Estimated Glomerular Filt Rate > 60; Glucose Random 136 mg/dL (60-115); Potassium 3.7 mmol/L (3.3-5.1); Sodium 139 mmol/L (135-145); Total Protein 6.9 g/dL (6.5-8.0)
[2024-09-04 18:04] LABS: Mean Corpuscular HGB Conc 34.1 g/dl (31.0-35.0); Mean Corpuscular Hemoglobin 29.9 pg (27.0-33.0); Mean Corpuscular Volume 87.6 fL (80.0-98.0); Mean Platelet Volume 10.2 fL (9.4-12.3); Platelet Count 288 X10*3/uL (160-400); Red Blood Count 4.68 X10*6/uL (4.20-5.50); Red Cell Distribution Width 13.3 % (11.0-16.0); White Blood Count 9.2 X10*3/uL (4.8-10.8)
== END 2024-09-04 13:42 | disposition home or self-care (01) ==
LOC: HO.WFDLDS 13:41
PROVIDERS: Visit Provider Nurse Practitioner Family
DX: E11.8 Type 2 diabetes mellitus with unspecified complications (principal); K64.9 Unspecified hemorrhoids
CPT/HCPCS: 36415; 80053; 85027

== ENCOUNTER 2024-09-17 09:23 | Outpatient (AMB) | payer OTHER, SELFPAY ==
--- NOTE | 2024-09-17 09:25 | MHC.OFFVIS ---
Vital Signs 09/17/24 09:40 Height 5 ft 3 in Weight 209 lb 4 oz BMI 37.1 BP 152/78 H Blood Pressure Location Lt brachial Position Sitting Pulse 65 Intake Visit Reasons: Galactorrhea not associated with childbirth Intake Note: Patient is seen in office for evaluation of galactorrhea. Pt c/o: has discharge from bilateral breast, started as milky color now is black color, sore, itchy, onset yrs, also here for hemorrhoids has blood in the stool taking colace, linzess, miralax with no relief, has severe constipation, bm twice a week also refer by Dr Diaz: Hemmorrhoids Server Systems Administrator Required: No Immunopathologist: Immunopathologist Present Accompanied by: Daughter Allergies hydrocodone [From VICODIN] Allergy (Mild, Verified 09/04/24 12:54) HIVES oxycodone [From PERCOCET] Allergy (Mild, Verified 09/04/24 12:54) HIVES azithromycin [AZITHROMYCIN] Allergy (Unknown, Verified 09/04/24 12:54) NAUSEA & VOMITING erythromycin base [From ERYTHROCIN] Allergy (Unknown, Verified 09/04/24 12:54) NAUSEA & VOMITING metformin Adverse Reaction (Mild, Uncoded 09/04/24 12:32) Gastrointestinal Upset Medication List - Last Reconciled 09/17/24 by Diego Garcia MD acetaminophen (Tylenol Extra Strength) 1,000 mg (2 x 500 mg) PO Q8H PRN albuterol sulfate 90 mcg/actuation 2 puffs inhalation Q4-6H PRN atorvastatin 10 mg PO BEDTIME betamethasone dipropionate 0.05% 1 appl topical DAILY PRN blood sugar diagnostic (FreeStyle Lite Strips) twice per day blood-glucose meter (FreeStyle [place] Lite kit) As directed bupropion HCl XL 300 mg PO DAILY cholecalciferol (vitamin D3) 50 mcg PO DAILY cyclobenzaprine 10 mg PO TID PRN docusate sodium (Colace) 100 mg PO BID 30 days fluticasone furoate 100 mcg/actuation (Arnuity Ellipta) 1 inh inhalation DAILY fluticasone propionate 50 mcg/actuation 1 spray intranasal BID PRN gabapentin 100 - 400 mg (1 - 4 x 100 mg) PO BEDTIME 30 days glycerin (child) 2 supp IN DAILY PRN 30 days hydrocortisone 2.5% (Procto-Med HC) 1 appl IN BEDTIME 14 days lancets (FreeStyle Lancets) 1 gauge topical BID lidocaine 5% 1 patch topical DAILY PRN linaclotide 290 mcg PO DAILY lisinopril 5 mg PO DAILY meloxicam 15 mg PO DAILY metoprolol tartrate 25 mg PO DAILY omeprazole 40 mg PO BID ondansetron 4 mg PO Q8H PRN 5 days sumatriptan succinate (Imitrex) 100 mg PO DAILY PRN HPI Comments Details: 43-year-old female patient presenting for evaluation of bilateral bloody nipple discharge as well as bleeding hemorrhoids. The patient had a previous history of brownish discharge from the nipples but feels that the discharge is now changed to a black and bloody discharge. The bleeding is not spontaneous but occurs after she squeezes the nipples. She also reports marked itchiness in the nipples on occasion. She recently received several insect bites to the left breast reports having a problem with scratching causing skin irritation. She underwent a stereotactic guided core biopsy last year for abnormal cluster of calcifications which revealed benign breast tissue. She denies any other history of breast problems in her family history is negative for breast cancer. The hemorrhoids have been associated with periods of constipation for several days followed by profuse diarrhea and anal pain. She will have several days of softer stools which will be associated with heavy bleeding from the hemorrhoids. She occasionally will have clots passing as well as fresh blood. She underwent a colonoscopy by Dr. Diaz which was significant for large internal and external hemorrhoids with the stigmata of bleeding. [facility] Medical History Acute respiratory disease Nausea with vomiting, unspecified Nephrolithiasis Periodic limb movements of sleep Anemia Asthma Sleep apnea Migraine Sinusitis Breast pain, left Hypertension Sleep apnea Bipolar 1 disorder Depression Anxiety delivery delivered Diabetes Sciatica Kidney infection Kidney stones HTN (hypertension) Fibromyalgia Lupus Surgical History Hx of colonoscopy History of esophagogastroduodenoscopy (EGD) H/O section H/O: hysterectomy Family History Maternal Grandmother HTN (hypertension) Diabetes Cancer Mother Ovarian cancer Other FH: mental illness Substance use Social History Housing: Apartment Are you a primary acute care nurse to a significant other at home: No Do you presently have visiting nurse or other home services: No Alcohol intake: never Patient Tobacco Use Status: Current everyday Tobacco user Tobacco use type: Smokeless Tobacco e-Cigarette/Vaping Use: Currently Using Substance Use Type: Marijuana Advance Directives Date on File: 02/02/24 service: No Current occupational status: employed 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 Current occupational exposures/hazards: No Cognitive needs: No Hearing needs: No Vision needs: Yes (glasses) Female Reproductive History Menstrual control method: progesterone injection Review of Systems Const All systems reviewed & are unremarkable except as noted in HPI and below Denies chills, Denies fever(s), Denies headache(s), Denies poor appetite and Denies weakness ENT Denies headache(s) Card Denies chest pain, Denies irregular heart rhythm, Denies palpitations and Denies dyspnea Resp Denies cough, Denies excessive phlegm production and Denies dyspnea GI Denies abdominal pain, Denies bloating, Denies change in bowel habits, Denies constipation, Denies heartburn, Denies diarrhea, Denies nausea and Denies vomiting Denies urinary frequency and Reports nipple discharge Musc Denies back pain, Denies muscle weakness and Denies numbness Skin/Breast Denies breast swelling, Denies breast skin changes, Reports breast pain, Denies breast mass, Denies changing lesions, Reports nipple discharge and Denies unusual bruising Neuro Denies headache(s), Denies numbness, Denies paresthesias and Denies weakness Psych Reports anxiety and Denies depression Endo Denies palpitations Kvng/Lymph Reports lymphadenopathy Physical Exam Vital Signs: Last Vital Signs Pulse 65 09/17/24 09:40 BP 152/78 H 09/17/24 09:40 BMI result Body Mass Index 37.1 Const General: cooperative and no acute distress Nutritional Appearance: well nourished Orientation/consciousness: patient oriented x3 Limitations: no limitations HEENT Head: Yes normocephalic and Yes atraumatic Ears: hearing grossly normal bilaterally Chest Other: Bilateral fibrocystic changes, no spontaneous discharge noted. Left breast: No skin change, no nipple retraction, no nipple discharge, no palpable mass, no enlarged lymph nodes. Right breast: No skin change, no nipple retraction, no nipple discharge, no palpable mass, no enlarged lymph nodes Resp Effort & Inspection: normal respiratory effort, no audible wheezes, no cough and no respiratory distress Cardio Jugular venous distension: no JVD GI Inspection: Yes normal to inspection Back/Spine/Pelvis Other: Rectal examination: External examination with no perirectal abscess, thrombosed hemorrhoid, or fistula Digital examination reveals some mild tenderness but normal sphincter tone and no evidence of fissure Anoscopic examination limited due to patient's pain: Markedly inflamed internal hemorrhoids with evidence of mild bleeding, grade 2-3. Skin Other: Warm, dry, no rash Neuro General: patient oriented x3 Extrem General: Yes no clubbing, cyanosis or edema Assessment & Plan Assessment & Plan (1) Galactorrhea: Code(s): N64.3 - Galactorrhea not associated with childbirth Category: Medical Plan: Patient with a previous history of bilateral nipple discharge now presenting with non spontaneous bilateral bloody discharge from the nipples. Examination revealed no suspicious findings in either breast with mild fibrocystic changes appreciated. I was then able to express any discharge during examination. I recommended further evaluation with a diagnostic mammogram and ultrasound and I have placed an order for this study. She should return following the studies to review the results and discuss treatment options. (2) Bleeding hemorrhoids: Code(s): K64.9 - Unspecified hemorrhoids Category: Medical Plan: Patient reports recurrent episodes of hemorrhoidal bleeding including fresh and clotted blood and workup with colonoscopy confirmed large hemorrhoids with stigmata of bleeding. Examination today confirmed large hemorrhoids with inflammation suggestive of prior bleeding. She has been on maximal medical therapy without much improvement therefore I would recommended exam under anesthesia and probable hemorrhoidectomy as a short-stay surgery. After discussion of the procedure, risks, and alternatives, she consents to an exam under anesthesia and hemorrhoidectomy. Orders: Orders US breast RT complete Today N64.3 - Galactorrhea not associated with childbirth MM diagnostic mammo BI Today N64.3 - Galactorrhea not associated with childbirth US breast LT complete Today N64.3 - Galactorrhea not associated with childbirth Coding Level of Care Code Est Pt Level 4 (98613) Diagnoses Galactorrhea N64.3 Bleeding hemorrhoids K64.9
[2024-09-17 09:40] VITALS: BP 152/78; PULSE 65; BMI 37.1
--- OUTSIDE RECORDS SUMMARY | 2024-09-17 10:18 | XMS_ITS | Clinical Summary ---
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
== END 2024-09-17 10:07 | disposition home or self-care (01) ==
LOC: HO.HGS 09:24
PROVIDERS: PCP Nurse Practitioner Family; Visit Provider Surgery
DX: N64.3 Galactorrhea not associated with childbirth (principal); K64.9 Unspecified hemorrhoids
CPT/HCPCS: 99214

== ENCOUNTER → 2024-09-17 09:23 | Outpatient (BNVA) | payer OTHER, SELFPAY | PROVIDERS: PCP Nurse Practitioner Family; Visit Provider Surgery | DX: N64.3 Galactorrhea not associated with childbirth (principal); K64.9 Unspecified hemorrhoids | CPT/HCPCS: 99212 ==

== ENCOUNTER 2024-10-28 06:26 | Day surgery (SDC) | payer OTHER, SELFPAY ==
--- OUTSIDE RECORDS SUMMARY | 2024-09-20 12:36 | XMS_ITS | Clinical Summary ---
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
[2024-10-24 11:55] VITALS: BMI 37.0
--- NOTE | 2024-10-24 14:23 | HO.ANESPROP2 ---
Documented by User: Teresa Joshi NP 10/24/24 14:30 HPI - Anesthesia Eval Consult details Narrative: 44yo F for EUA, Hemorrhoidectomy Mulitple co-morbid risk factors: DM, IGNACIO, obesity, ? CAD, lupus, asthma. Stable at 08/2024 PCP office visit without cardiovascular or respiratory complaints. Labs 08/2024 EKG 04/2024 PMFSH Active Problems Active Problems: All Active Problems Insect bites (Acute) Spondylosis of lumbar region without myelopathy or radiculopathy (Acute) Galactorrhea (Acute) Acute lumbar back pain (Acute) Acute thoracic back pain (Acute) Left elbow pain (Acute) Vitamin D deficiency (Acute) Nausea with vomiting, unspecified (Acute) Pancreatic cyst (Acute) Fatty liver (Acute) Bleeding hemorrhoids (Acute) Marijuana use (Acute) Complex ovarian cyst (Acute) Vertebrogenic low back pain (Acute) Lumbar radiculopathy (Acute) Weight loss, unintentional (Acute) Nephrolithiasis (Acute) Liver cyst (Acute) Pelvic pain (Acute) Well woman exam (Acute) Altered gait (Acute) Paresthesia of bilateral legs (Acute) GI bleed (Acute) Abdominal pain (Acute) Dysphagia (Acute) Migraine headache without aura (Acute) Leg cramps (Acute) Anemia (Acute) Low vitamin B12 level (Acute) Right ankle instability (Acute) Cervical cancer screening (Acute) Abnormal mammogram of right breast (Acute) Change in bowel habit (Acute) Bilateral primary osteoarthritis of hip (Acute) Sacroiliac joint pain (Acute) Greater trochanteric bursitis of both hips (Acute) Bilateral hip pain (Acute) Restless leg syndrome (Acute) Excessive daytime sleepiness (Acute) Nocturnal dyspnea (Acute) Obesity with serious comorbidity (Acute) Seasonal allergies (Acute) CAD (coronary artery disease) (Acute) DM type 2 causing complication (Acute) IGNACIO on CPAP (Acute) Menopause (Acute) Encounter for screening involving social determinants of health (SDoH) (Acute) Mild intermittent asthma in adult without complication (Acute) JONATHON (generalized anxiety disorder) (Acute) MDD (major depressive disorder), recurrent episode (Acute) Hemorrhoid (Acute) Lumbar pain (Acute) Chronic constipation (Acute) Bipolar 1 disorder (Acute) Hernia (Acute) PTSD (post-traumatic stress disorder) (Acute) Lupus (Acute) HTN (hypertension) (Acute) Fibromyalgia (Acute) Past Medical History Medical History Acute respiratory disease Nausea with vomiting, unspecified Nephrolithiasis Periodic limb movements of sleep Anemia Asthma Sleep apnea Migraine Sinusitis Breast pain, left Hypertension Sleep apnea Bipolar 1 disorder Depression Anxiety delivery delivered Diabetes Sciatica Kidney infection Kidney stones HTN (hypertension) Fibromyalgia Lupus Family History Family History Maternal Grandmother HTN (hypertension) Diabetes Cancer Mother Ovarian cancer Other FH: mental illness Substance use Family history of problems with anesthesia: No Surgical History Surgical History Hx of colonoscopy History of esophagogastroduodenoscopy (EGD) H/O section H/O: hysterectomy History of Problems with Anesthesia: No Social History Social History Housing: Apartment Are you a primary family day care worker to a significant other at home: No Do you presently have visiting nurse or other home services: No Alcohol intake: never Patient Tobacco Use Status: Current everyday Tobacco user Tobacco use type: Smokeless Tobacco e-Cigarette/Vaping Use: Currently Using Use of substances other than those prescribed or required for medical reasons: Yes Substance Use Type: Marijuana Substance Use Frequency: Daily Have you been hit, kicked, punched, or otherwise hurt by someone within the past year? 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: No Cognitive needs: No Hearing needs: No Vision needs: Yes (glasses) Meds Allergies Allergy/AdvReac Type Severity Reaction Status Date / Time hydrocodone (From VICODIN) Allergy Mild HIVES Verified 10/28/24 06:55 oxycodone (From PERCOCET) Allergy Mild HIVES Verified 10/28/24 06:55 azithromycin (AZITHROMYCIN) Allergy Unknown NAUSEA & Verified 10/28/24 06:55 VOMITING erythromycin base (From Allergy Unknown NAUSEA & Verified 10/28/24 06:55 ERYTHROCIN) VOMITING metformin AdvReac Mild Gastrointestinal Uncoded 10/28/24 06:55 Upset Home Medications ?Medication ?Instructions ?Recorded ?Confirmed ?Last Taken ?Type bupropion HCl 300 mg 24 hr tablet, 300 mg PO DAILY 09/08/23 09/17/24 02/01/24 History extended release fluticasone propionate 50 1 spray intranasal BID PRN 02/02/24 09/17/24 Unknown History mcg/actuation nasal allergies spray,suspension Exam Height,Weight and Vital Signs: Height 5 ft 3 in Weight 94.801 kg Pertinent Lab Results Pertinent Lab Results: Laboratory Tests 09/04/24 13:48 WBC 9.2 Hgb 14.0 Hct 41.0 Plt Count 288 Sodium 139 Potassium 3.7 Chloride 104 Carbon Dioxide 28 BUN 13 Creatinine 0.68 Narrative Narrative: EKG 04/2024 Vent. Rate : 78 BPM Atrial Rate : 78 BPM P-R Int : 172 ms QRS Dur : 76 ms QT Int : 386 ms P-R-T Axes : 37 20 41 degrees QTcB Int : 440 ms Normal sinus rhythm Cannot rule out Anterior infarct , age undetermined - could be from body habitus and lead placement Abnormal ECG When compared with ECG of 21-Mar-2024 23:32, No significant change was found Assessment and Plan Assessment Anesthesia Assessment: Chart Reviewed Final Anesthetic Review Family History of Problems with Anesthesia: No History of Problems with Anesthesia: No Documented by User: Brian Cronin MD 10/28/24 07:32 [facility] Past Medical History Medical History Acute respiratory disease Nausea with vomiting, unspecified Nephrolithiasis Periodic limb movements of sleep Anemia Asthma Sleep apnea Migraine Sinusitis Breast pain, left Hypertension Sleep apnea Bipolar 1 disorder Depression Anxiety delivery delivered Diabetes Sciatica Kidney infection Kidney stones HTN (hypertension) Fibromyalgia Lupus Patient : No Family History Family History Maternal Grandmother HTN (hypertension) Diabetes Cancer Mother Ovarian cancer Other FH: mental illness Substance use Surgical History Surgical History Hx of colonoscopy History of esophagogastroduodenoscopy (EGD) H/O section H/O: hysterectomy Social History Social History Housing: Apartment Are you a primary family day care worker to a significant other at home: No Do you presently have visiting nurse or other home services: No Alcohol intake: never Patient Tobacco Use Status: Current everyday Tobacco user Tobacco use type: Smokeless Tobacco e-Cigarette/Vaping Use: Currently Using Use of substances other than those prescribed or required for medical reasons: Yes Substance Use Type: Marijuana Substance Use Frequency: Daily Have you been hit, kicked, punched, or otherwise hurt by someone within the past year? 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: No Cognitive needs: No Hearing needs: No Vision needs: Yes (glasses) Meds Allergies Allergy/AdvReac Type Severity Reaction Status Date / Time hydrocodone (From VICODIN) Allergy Mild HIVES Verified 10/28/24 06:55 oxycodone (From PERCOCET) Allergy Mild HIVES Verified 10/28/24 06:55 azithromycin (AZITHROMYCIN) Allergy Unknown NAUSEA & Verified 10/28/24 06:55 VOMITING erythromycin base (From Allergy Unknown NAUSEA & Verified 10/28/24 06:55 ERYTHROCIN) VOMITING metformin AdvReac Mild Gastrointestinal Uncoded 10/28/24 06:55 Upset Home Medications ?Medication ?Instructions ?Recorded ?Confirmed ?Last Taken ?Type bupropion HCl 300 mg 24 hr tablet, 300 mg PO DAILY 09/08/23 09/17/24 02/01/24 History extended release fluticasone propionate 50 1 spray intranasal BID PRN 02/02/24 09/17/24 Unknown History mcg/actuation nasal allergies spray,suspension Exam Airway Mallampati Class: II TM Dist: <=3cm Neck ROM: Full Denture: Upper and Lower Heart: see above. ?CAD Lungs: ok Assessment and Plan Assessment Anesthesia Assessment: Anesthesia Plan Discussed Final Anesthetic Review NPO: Yes ASA Class: III Final Preanesthetic Review: No Changes in Pt Med Stat, Meds/Allgs Chart Reviewed, Consent Obtained/Reviewed and Anes Risks/Benef Reviewed Patient Risk: Intermediate Procedure Risk: Low Anesthetic Plan Anesthetic Plan: GA and Agree w/ Assess. and Plan Disposition: Standard PACU
[2024-10-28 06:56] VITALS: BMI 37.1
[2024-10-28 06:59] VITALS: BP 133/90; PULSE 68; RESP 14; TEMP 36.7; O2SAT 97
[2024-10-28] MEDS: Lactated Ringers 1,000 ML 100 ML IVCONT (07:00)
[2024-10-28 07:34] LABS: Glucose, Whole Blood 166 mg/dL (60-115)
--- NOTE | 2024-10-28 07:34 | MHC.SHP ---
Pre-Procedural Eval Section A - 24 Hr Update-Section A only Date of Service: 10/28/24 The patient is an INPATIENT: No Changes since office visit: Yes Patient answered all questions; No Cold of Flu in the past 2 weeks, No New Medical Problems and No Changes in Medication The patient has been examined within 24 hours of the surgical procedure. The History & Physical has been completed within 30 days and I have reviewed it.: No Section B - Complete if H&P > 30 days Chief Complaint: Unspecified hemorrhoids Details of Present Illness: continued pain and constipation Relevant Family History (Specify if Yes): No Relevant Social History: None Present Medications: see Short Stay Collaborative assessment Medical History: No relevant PMH History of Previous Operations: No relevant previous surgery Allergies: Allergies Allergy/AdvReac Type Severity Reaction Status Date / Time hydrocodone (From VICODIN) Allergy Mild HIVES Verified 10/28/24 06:55 oxycodone (From PERCOCET) Allergy Mild HIVES Verified 10/28/24 06:55 azithromycin (AZITHROMYCIN) Allergy Unknown NAUSEA & Verified 10/28/24 06:55 VOMITING erythromycin base (From Allergy Unknown NAUSEA & Verified 10/28/24 06:55 ERYTHROCIN) VOMITING metformin AdvReac Mild Gastrointestinal Uncoded 10/28/24 06:55 Upset Review of Systems Sugical H&P ROS: Negative: Constitution, Cardiovascular, Respiratory, Neurological, Psychiatric, Hem-Onc, Allergic/Immunologic, Gastrointestinal, Genitourinary, Musculoskeletal, Integumentary, Endocrine and Eyes/Ears/Nose/Throat Exam Surgical H&P Exam: Normal: HEENT, Normal: Heart, Normal: Lungs, Normal: Extremities, Normal: Abdomen, Normal: Skin and Normal: Neurological Plan Diagnosis/Plan: Unchanged I have reviewed the history and physical and performed a pertinent physical examination on my patient. No changes have occurred unless specified. Time Spent With Patient Time: Total time managing care of this patient today ____ minutes.
[2024-10-28] MEDS: cefoTEtan disodium 2 GM VIAL IVPUSH (07:42)
--- NOTE | 2024-10-28 08:39 | P.OP_ITS ---
Operative Note Operative Note Date of Service: 10/28/24 Narrative: Preoperative diagnosis: Painful hemorrhoids with bleeding Postoperative diagnosis: Same Procedure: Exam under anesthesia, hemorrhoidectomy Surgeon: Diego Garcia MD Sales Representative Printing Paper: Irvin HUDSON Anesthesia: General LMA Indications for procedure: 44-year-old female patient presenting with complaints of constipation and painful hemorrhoids with bleeding. On examination the patient was found to have an area of marked inflammation and prolapse, grade 3 with bleeding and ulceration Operative findings: Grade 3 bleeding hemorrhoids located in the 07:00 location as well as the 11:00 location while in the lithotomy position. Specimen: Hemorrhoid x2 Estimated blood loss: 25 mL Complications: None Procedure details: Patient was brought to the OR and placed in a supine position. After administering anesthesia the patient was placed in lithotomy position. The patient's perirectal area was prepped with Betadine and draped in a sterile fashion. A surgical time-out was called the consent confirmed. Patient received preoperative antibiotics and Venodyne boots were in place. Local anesthesia was infiltrated circumferentially around the perianal skin. Anoscopic exam was performed and the above findings noted. Beginning in the 07:00 location a large hemorrhoid collection was grasped with a triangle clamp and then a Katelyn clamp placed below this. Baseball stitch was placed using a 3- 0 chromic suture. The hemorrhoid was then excised above the clamp and a running locked closure performed for hemostasis and the suture tied proximally. Good hemostasis was assured at this time. Attention was then directed to the 11 o'clock position where a 2nd smaller collection was identified. This again was grasped with a triangular clamp and then encompass with a Katelyn clamp. Once again a chromic suture baseball stitch was placed below the clamp. The hemorrhoid was then excised over the clamp and sent to pathology for further examination. A running locked suture was then used to close the remaining mucosa. This was then tied proximally. An additional suture was needed to assure adequate hemostasis. Wounds were again checked for hemostasis and good hemostasis identified. A packing consisting of a 4 x 4 gauze with overlying Xeroform and Surgicel was then placed into the anal canal for hemostasis. This was then followed by ABD pad and mesh panties. The patient tolerated the procedure well. Sponge, instrument, and needle counts reported as correct. The patient was transferred to PACU in stable condition.
[2024-10-28 08:46] VITALS: BP 126/80; PULSE 83; RESP 17; TEMP 36.6; O2SAT 91
[2024-10-28 08:51] VITALS: BP 140/81; PULSE 83; RESP 21; O2SAT 92
[2024-10-28 08:56] VITALS: BP 130/86; PULSE 73; RESP 25; O2SAT 96
[2024-10-28 09:01] VITALS: BP 139/86; PULSE 62; RESP 24; O2SAT 96
[2024-10-28 09:16] VITALS: BP 156/79; PULSE 67; RESP 22; TEMP 36.3; O2SAT 98
== END 2024-10-28 10:04 | disposition home or self-care (01) ==
PROVIDERS: PCP Nurse Practitioner Family; Visit Provider Surgery
PROC: (CPT 46250; principal; 2024-10-28 07:30)
DX: K64.2 Third degree hemorrhoids (principal); K64.4 Residual hemorrhoidal skin tags; K59.00 Constipation, unspecified; I10 Essential (primary) hypertension; E11.9 Type 2 diabetes mellitus without complications; M79.7 Fibromyalgia; M32.9 Systemic lupus erythematosus, unspecified; D64.9 Anemia, unspecified; J45.909 Unspecified asthma, uncomplicated; N64.3 Galactorrhea not associated with childbirth; F31.9 Bipolar disorder, unspecified; Z79.51 Long term (current) use of inhaled steroids; Z79.899 Other long term (current) drug therapy; Z88.1 Allergy status to other antibiotic agents; Z88.5 Allergy status to narcotic agent; Z88.8 Allergy status to other drugs, medicaments and biological substances; Z98.890 Other specified postprocedural states; F17.220 Nicotine dependence, chewing tobacco, uncomplicated
CPT/HCPCS: 46250; 82947; 88304; J1171; J1885; J2003; J2405; J2704; J3010

== ENCOUNTER → 2024-10-28 06:26 | Outpatient (BNV) | payer OTHER, SELFPAY | PROVIDERS: PCP Nurse Practitioner Family; Visit Provider Surgery | DX: K64.8 Other hemorrhoids (principal) | CPT/HCPCS: 46250 ==

== ENCOUNTER 2024-10-28 17:26 | Inpatient (IN) | payer OTHER, SELFPAY ==
[2024-10-28] VITALS (11 sets, daily range): BP systolic 115–169; BP diastolic 71–102; PULSE 71–119; RESP 13–26; TEMP 35.9–37.9; O2SAT 88–99; BMI 38.3; BMI 38.4
--- NOTE | ~2024-10-28 | XR_ITS ---
CLINICAL HISTORY: fever 1 view chest x-ray Comparison: Chest x-ray from 07/06/2024 Findings: Low lung volumes with mild bibasilar atelectasis and/or pneumonitis. No pneumothorax or pleural effusion. Imaged mediastinum and imaged osseous structures appear unchanged accounting for AP magnification IMPRESSION: Mild bibasilar atelectasis/pneumonitis. This document has been electronically signed by: Davion Peterson MD on 10/28/2024 19:43:52
--- NOTE | 2024-10-28 18:29 | ED.GENADULT ---
HPI - General Adult General Chief complaint: Recheck/Abnormal Lab/Rx Stated complaint: nausea/vomiting/weakness s/p hemorrhoid sx @ 12p Time Seen by Provider: 10/28/24 18:09 Source: patient Limitations: no limitations History of Present Illness ED Provider: Lacey Villarreal PA-C HPI narrative: 44-year-old female with a history of morbid obesity, chronic constipation, hemorrhoids, migraine, fpr-glclypo-ilhzkfjwa diabetes mellitus type 2, mood disorder, mixed hyperlipidemia, essential hypertension, restless leg syndrome, s/p hemorrhoidectomy today by Dr. Garcia, presents with worsening rectal pain since the procedure. Patient states she feels as if the hemorrhoids ?have blown up?. Patient states the pain became extreme, she was unable to urinate secondary to the pain. Patient states she also started taking Dulcolax and MiraLax, to help prevent worsening constipation, she states she is having diarrhea. Related Data Home Medications ?Medication ?Instructions ?Recorded ?Confirmed bupropion HCl 300 mg 24 hr tablet, 300 mg PO DAILY 09/08/23 09/17/24 extended release fluticasone propionate 50 1 spray intranasal BID PRN 02/02/24 09/17/24 mcg/actuation nasal allergies spray,suspension Previous Rx's ?Medication ?Instructions ?Recorded blood-glucose meter (FreeStyle #1 ea 07/20/20 [place] Lite kit) acetaminophen 500 mg tablet 1,000 mg (2 x 500 mg) PO Q8H PRN 08/01/23 (Tylenol Extra Strength) back pain #60 tabs albuterol sulfate 90 mcg/actuation 2 puff inhalation Q4-6H PRN 09/19/23 aerosol inhaler shortness of breath or wheezing #1 ea fluticasone furoate 100 1 inh inhalation DAILY #30 ea 01/08/24 mcg/actuation blister powder for inhalation (Arnuity Ellipta) ondansetron 4 mg disintegrating 4 mg PO Q8H PRN nausea and 01/22/24 tablet vomiting 5 days #15 tabs omeprazole 40 mg capsule,delayed 40 mg PO BID #180 caps 02/13/24 release hydrocortisone 2.5 % topical cream 1 appl OK BEDTIME 14 days #30 grams 02/15/24 with perineal applicator (Procto-Med ) docusate sodium 100 mg capsule 100 mg PO BID constipation 30 days 04/12/24 (Colace) #60 caps lidocaine 5 % topical patch 1 patch topical DAILY PRN Pain #30 04/12/24 ea cholecalciferol (vitamin D3) 50 50 mcg PO DAILY #90 caps 06/04/24 mcg (2,000 unit) capsule glycerin (child) 2 supp OK DAILY PRN constipation 06/10/24 30 days #25 ea sumatriptan succinate 100 mg 100 mg PO DAILY PRN migraine 06/17/24 tablet (Imitrex) headache #7 tabs gabapentin 100 mg capsule 100 - 400 mg (1 - 4 x 100 mg) PO 06/24/24 BEDTIME 30 days #90 caps cyclobenzaprine 10 mg tablet 10 mg PO TID PRN muscle spasm #20 07/26/24 tabs atorvastatin 10 mg tablet 10 mg PO BEDTIME #90 tabs 09/04/24 betamethasone dipropionate 0.05 % 1 appl topical DAILY PRN skin 09/04/24 topical cream irritation #45 grams blood sugar diagnostic (FreeStyle #100 ea 09/04/24 Lite Strips) lancets 28 gauge (FreeStyle 1 gauge topical BID #100 ea 09/04/24 Lancets) lisinopril 5 mg tablet 5 mg PO DAILY #90 tabs 09/04/24 metoprolol tartrate 25 mg tablet 25 mg PO DAILY #90 tabs 09/04/24 linaclotide 290 mcg capsule 290 mcg PO DAILY #90 caps 09/05/24 meloxicam 15 mg tablet 15 mg PO DAILY for pain #30 tabs 10/03/24 hydromorphone 2 mg tablet 2 mg PO Q6H PRN pain (scale score 10/28/24 (Dilaudid) 7-10) #20 tabs Allergies Allergy/AdvReac Type Severity Reaction Status Date / Time hydrocodone (From VICODIN) Allergy Mild HIVES Verified 10/28/24 17:44 oxycodone (From PERCOCET) Allergy Mild HIVES Verified 10/28/24 17:44 azithromycin (AZITHROMYCIN) Allergy Unknown NAUSEA & Verified 10/28/24 17:44 VOMITING erythromycin base (From Allergy Unknown NAUSEA & Verified 10/28/24 17:44 ERYTHROCIN) VOMITING metformin AdvReac Mild Gastrointestinal Uncoded 10/28/24 06:55 Upset Review of Systems Review of Systems: Yes all other systems are reviewed and are negative Constitutional: Constitutional: Denies fatigue and Reports fever(s) Cardiovascular: Cardiovascular: Denies chest pain and Denies dyspnea Respiratory: Respiratory: Denies dyspnea Gastrointestinal: Gastrointestinal: Denies abdominal pain, Reports constipation, Reports diarrhea, Reports nausea, Reports vomiting and Reports other (Rectal pain) Endocrine: Endocrine: Denies fatigue PMFSH Past Medical History Attestation statement: The following information was validated with the patient. Medical History (Updated 10/28/24 @ 20:31 by KAYE Virgen) Postoperative pain Acute respiratory disease Nausea with vomiting, unspecified Nephrolithiasis Periodic limb movements of sleep Anemia Asthma Sleep apnea Migraine Sinusitis Breast pain, left Hypertension Sleep apnea Bipolar 1 disorder Depression Anxiety delivery delivered Diabetes Sciatica Kidney infection Kidney stones HTN (hypertension) Fibromyalgia Lupus Surgical History (Updated 10/28/24 @ 20:31 by KAYE Virgen) S/P hemorrhoidectomy (10/28/24) Hx of colonoscopy History of esophagogastroduodenoscopy (EGD) H/O section H/O: hysterectomy Family History Family History Maternal Grandmother HTN (hypertension) Diabetes Cancer Mother Ovarian cancer Other FH: mental illness Substance use Social History Social History Housing: Apartment Are you a primary care professional to a significant other at home: No Do you presently have visiting nurse or other home services: No Alcohol intake: never Patient Tobacco Use Status: Current everyday Tobacco user Tobacco use type: Smokeless Tobacco e-Cigarette/Vaping Use: Currently Using Substance Use Type: Marijuana Advance Directives: No Advance Directives Information Provided: No Advance Directives Date on File: 02/02/24 service: No Current occupational status: employed 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 Current occupational exposures/hazards: No Cognitive needs: No Hearing needs: No Vision needs: Yes (glasses) Physical Exam ED Exam Exam: Alert, tearful, anxious, appears older than stated age Vital Signs: Vital Signs - 24 hr 10/28/24 17:42 10/28/24 18:52 10/28/24 19:25 Temperature 100.3 F 98.5 F Pulse Rate 119 H 118 H 107 H Respiratory Rate 26 H 14 13 Blood Pressure 169/86 H 166/102 H 115/76 Pulse Oximetry 95 96 88 L Oxygen Delivery Method Room Air Room Air Room Air Oxygen Flow Rate 10/28/24 19:26 10/28/24 19:45 Temperature 98.1 F Pulse Rate 108 H Respiratory Rate 19 Blood Pressure 135/81 Pulse Oximetry 97 96 Oxygen Delivery Method Nasal Cannula Nasal Cannula Oxygen Flow Rate 2 1.5 BMI result Body Mass Index 38.3 Const Orientation/consciousness: patient oriented x3 Resp Effort & Inspection: normal respiratory effort Cardio Other: Normal peripheral perfusion GI Other: See picture Skin Other: Warm dry no rash Neuro General: patient oriented x3, gait normal, no focal motor deficits and CN's II-XI intact bilaterally Psych Other: Cooperative, anxious, tearful Course Course Course Narrative: 44-year-old female with a history of morbid obesity, chronic constipation, hemorrhoids, migraine, sar-oslrqal-yxsfvicen diabetes mellitus type 2, mood disorder, mixed hyperlipidemia, essential hypertension, restless leg syndrome, s/p hemorrhoidectomy today by Dr. Garcia, presents with worsening rectal pain since the procedure. Patient states she feels as if the hemorrhoids ?have blown up?. Patient states the pain became extreme, she was unable to urinate secondary to the pain. Patient states she also started taking Dulcolax and MiraLax, to help prevent worsening constipation, she states she is having diarrhea. Reevaluation(s) Reevaluation #1: At 6:42 p.m. on October 28, a sepsis focused exam was performed, in addition to labs adding blood cultures, lactic, starting weight based IV fluids, and ceftriaxone. Time: 18:42 Consultations Consultation #1: per Dr. aTylor..... He reviewed the image, he states this is to be expected given the nature of the procedure, he will admit for pain control. Time: 19:23 Medications Administered Generic Name Dose Route Start Last Admin Trade Name Freq PRN Reason Stop Dose Admin Magnesium Sulfate 2 gm in 50 mls @ 25 mls/hr 10/28/24 19:02 10/28/24 19:22 Magnesium Sulfate/H2o IV 10/28/24 21:01 25 mls/hr ONCE ONE Administration Discontinued Medications Generic Name Dose Route Start Last Admin Trade Name Freq PRN Reason Stop Dose Admin Ceftriaxone Sodium 2 gm 10/28/24 18:42 10/28/24 18:48 Ceftriaxone Sodium 2 Gm Vial IVPUSH 10/28/24 18:43 2 gm ONCE ONE Administration Hydromorphone HCl 1 mg 10/28/24 18:23 10/28/24 18:42 Hydromorphone Hcl 1 Mg/Ml Syringe IVPUSH 10/28/24 18:24 1 mg ONCE ONE Administration Protocol Hydromorphone HCl 1 mg 10/28/24 19:13 10/28/24 19:22 Hydromorphone Hcl 1 Mg/Ml Syringe IVPUSH 10/28/24 19:14 1 mg ONCE ONE Administration Protocol Acetaminophen 1,000 mg in 100 mls @ 400 mls/hr 10/28/24 18:13 10/28/24 19:23 Ofirmev IV 10/28/24 18:27 Infused ONCE ONE Infusion Sodium Chloride 1,000 mls @ 999 mls/hr 10/28/24 18:30 10/28/24 18:40 Ns IV 10/28/24 19:30 999 mls/hr .Q1H1M ISAIAH Administration Sodium Chloride 500 mls @ 500 mls/hr 10/28/24 18:19 10/28/24 18:41 Ns IV 10/28/24 19:18 500 mls/hr .Q1H ONE Administration Ondansetron HCl 4 mg 10/28/24 18:23 10/28/24 18:41 Ondansetron Hcl 4 Mg/2 Ml Vial IVPUSH 10/28/24 18:24 4 mg ONCE ONE Administration Medical Decision Making Medical Decision Making MDM Narrative: 44-year-old female with a history of morbid obesity, chronic constipation, hemorrhoids, migraine, vqi-ibhakuj-niiktwswp diabetes mellitus type 2, mood disorder, mixed hyperlipidemia, essential hypertension, restless leg syndrome, s/p hemorrhoidectomy today by Dr. Garcia, presents with worsening rectal pain since the procedure. Patient states she feels as if the hemorrhoids ?have blown up?. Patient states the pain became extreme, she was unable to urinate secondary to the pain. Patient states she also started taking Dulcolax and MiraLax, to help prevent worsening constipation, she states she is having diarrhea. Problem: Morbid obesity, constipation, hemorrhoids, status post hemorrhoidectomy, diabetes History: Per patient I have considered the following differential diagnoses: Postoperative complication, postoperative fever, pneumonia, UTI, viral syndrome Plan: I reached out to Dr. Taylor, he reviewed imaging, he feels that her symptoms are to be expected given the nature of the procedure. Also considering sepsis,At 6:42 p.m. on October 28, a sepsis focused exam was performed, in addition to labs adding blood cultures, lactic, starting weight based IV fluids, and ceftriaxone. People can also have simply a postoperative fever, however we will screened for source adding a chest x-ray, viral panel and urinalysis. Giving Dilaudid and Zofran for her pain. I have independently reviewed the following tests: Labs: Slight leukocytosis, with left shift, not anemic, magnesium subtly low at 1.5, we will give 2 g, no other electrolyte abnormality lactic 1.2, not , urine pending at the time of admission, viral panel negative Chest x-ray:MPRESSION: Mild bibasilar atelectasis/pneumonitis. Lab Data 10/28/24 18:32 10/28/24 18:32 Labs: Lab Results 10/28/24 Range/Units 18:32 WBC 12.1 H (4.8-10.8) X10*3/uL RBC 4.46 (4.20-5.50) X10*6/uL Hgb 13.5 (12.0-16.0) g/dl Hct 38.2 (37.0-47.0) % MCV 85.7 (80.0-98.0) fL MCH 30.3 (27.0-33.0) pg MCHC 35.3 H (31.0-35.0) g/dl RDW 12.8 (11.0-16.0) % Plt Count 277 (160-400) X10*3/uL MPV 9.5 (9.4-12.3) fL Immature Gran % (Auto) 0.5 H (0.0-0.4) % Neut % (Auto) 79.8 H (45-73) % Lymph % (Auto) 12.0 L (20-40) % [place] % (Auto) 6.3 (2-11) % Eos % (Auto) 1.2 (0-4) % Baso % (Auto) 0.2 (0-2) % Lymph # (Auto) 1.5 (1.2-4.9) X10*3/uL [place] # (Auto) 0.8 (0.1-1.2) X10*3/uL Eos # (Auto) 0.1 (0.0-0.4) X10*3/uL Baso # (Auto) 0.0 (0.0-0.2) X10*3/uL Abs Immat Gran (auto) 0.06 H (0.00-0.03) X10*3/uL Absolute Neuts (auto) 9.7 H (2.0-8.3) x10*3/uL Absolute Nucleated RBC 0.000 (0.0-0.012) X10*3/uL Nucleated RBC % (auto) 0.0 (0.0-0.2) /100WBC Sodium 139 (135-145) mmol/L Potassium 3.9 (3.3-5.1) mmol/L Chloride 106 (96-108) mmol/L Carbon Dioxide 26 (22-29) mmol/L Anion Gap 11 L (12-20) BUN 19 H (9-16) mg/dL Creatinine 0.77 (0.5-1.4) mg/dL Estim Creat Clear Calc 105.1 Estimated GFR > 60 Random Glucose 156 H (60-115) mg/dL Lactic Acid 1.2 (0.5-2.0) mmol/L Calcium 8.6 (8.4-10.2) mg/dL Magnesium 1.5 L (1.6-2.6) mg/dL Total Bilirubin 0.3 (0.0-1.0) mg/dL AST 31 (5-31) U/L ALT 36 H (0-31) U/L Alkaline Phosphatase 120 H (39-117) U/L Total Protein 7.0 (6.5-8.0) g/dL Albumin 3.9 (3.5-5.0) g/dL Beta HCG, Quant < 2 mIU/mL Influenza Type A (PCR) NEGATIVE (Negative) Influenza Type B (PCR) NEGATIVE (Negative) RSV RNA Qual (PCR) NEGATIVE (Negative) SARS-CoV-2 RNA (RT-PCR) NEGATIVE (Negative) Discharge Plan Discharge Clinical Impression: Post-operative pain, S/P hemorrhoidectomy Patient Disposition: Admitted As Inpatient
[2024-10-28 18:37] LABS: MANUAL DIFF FLAG NO
[2024-10-28 18:42] LABS: Hematocrit 38.2 % (37.0-47.0); Hemoglobin 13.5 g/dl (12.0-16.0); Imm Gran Abs Auto 0.06 X10*3/uL (0.00-0.03); Imm Gran Pct Auto 0.5 % (0.0-0.4); Lymphocytes Absolute Auto 1.5 X10*3/uL (1.2-4.9); Mean Corpuscular HGB Conc 35.3 g/dl (31.0-35.0); Mean Corpuscular Hemoglobin 30.3 pg (27.0-33.0); Mean Corpuscular Volume 85.7 fL (80.0-98.0); NRBC Abs Auto 0.000 X10*3/uL (0.0-0.012); NRBC Pct Auto 0.0 /100WBC (0.0-0.2); Platelet Count 277 X10*3/uL (160-400); Red Blood Count 4.46 X10*6/uL (4.20-5.50); White Blood Count 12.1 X10*3/uL (4.8-10.8)
[2024-10-28 19:00] LABS: Alanine Aminotransferase 36 U/L (0-31); Albumin Level 3.9 g/dL (3.5-5.0); Alkaline Phosphatase 120 U/L (39-117); Anion Gap 11 (12-20); Aspartate Amino Transferase 31 U/L (5-31); Blood Urea Nitrogen 19 mg/dL (9-16); Calcium 8.6 mg/dL (8.4-10.2); Carbon Dioxide 26 mmol/L (22-29); Chloride 106 mmol/L (96-108); Creatinine Clr Calc Pharmacy 105.1; Estimated Glomerular Filt Rate > 60; Magnesium 1.5 mg/dL (1.6-2.6); Potassium 3.9 mmol/L (3.3-5.1); Sodium 139 mmol/L (135-145); Total Protein 7.0 g/dL (6.5-8.0)
[2024-10-28 19:19] LABS: Resp Syncy Virus RNA Qual PCR NEGATIVE (Negative); SARS COV2 PCR INHOUSE NEGATIVE (Negative)
[2024-10-28] MEDS: Magnesium Sulfate/H2O 2 GM/50 ML PIGGYBACK IV (19:22)
--- NOTE | 2024-10-28 19:33 | PC.NURSE ---
this rn at bedside to medicate according to jun. spo2 noted @ 88% on RA pt reports some SOB. pt placed on 2l NC spo2 on 2l 97% . ashly nelson made aware
--- NOTE | 2024-10-28 20:00 | PM.HPGS ---
History of Present Illness History of Present Illness Date of Service: 10/31/24 Chief complaint: Posthemorrhoidectomy pain Narrative: Linda Martinez is a 44 year old female with migraine, diet-controlled diabetes, HTN, chronic pain, fibromyalgia,anxiety, PTSD, lupus, IGNACIO here in the ED for pain after hemorrhoidectomy today. She had undergone hemorrhoidectomy x 2 columns today for bleeding hemorrhoids with Dr. Garcia. She felt that as soon as her anesthesia wore off, she had severe pain in her anus. She says she could not void at home because of the pain. She felt the hemorrhoidectomy sites to be swollen. She says her oral pain meds did not control her pain at all. In view of the above she was brought to the ED by her . She also says she has had a history of alternating diarrhea and constipation for many months. Review of Systems Constitutional: Constitutional: Denies chills and Denies fever(s) Cardiovascular: Cardiovascular: Denies chest pain Respiratory: Respiratory: Denies cough Gastrointestinal: Gastrointestinal: Denies abdominal pain Genitourinary: Genitourinary: Reports difficulty voiding Musculoskeletal: Musculoskeletal: Reports back pain PMFSH Past Medical History Medical History (Updated 10/28/24 @ 20:31 by KAYE Virgen) Postoperative pain Acute respiratory disease Nausea with vomiting, unspecified Nephrolithiasis Periodic limb movements of sleep Anemia Asthma Sleep apnea Migraine Sinusitis Breast pain, left Hypertension Sleep apnea Bipolar 1 disorder Depression Anxiety delivery delivered Diabetes Sciatica Kidney infection Kidney stones HTN (hypertension) Fibromyalgia Lupus Family History Family History Maternal Grandmother HTN (hypertension) Diabetes Cancer Mother Ovarian cancer Other FH: mental illness Substance use Surgical History Surgical History (Updated 10/28/24 @ 20:31 by KAYE Virgen) S/P hemorrhoidectomy (10/28/24) Hx of colonoscopy History of esophagogastroduodenoscopy (EGD) H/O section H/O: hysterectomy Social History Social History Household Members: Spouse Housing: Apartment Are you a primary home health care case manager to a significant other at home: No Do you presently have visiting nurse or other home services: No Alcohol intake: never Patient Tobacco Use Status: Former Tobacco user Tobacco use type: Smokeless Tobacco e-Cigarette/Vaping Use: Currently Using Substance Use Type: Marijuana Advance Directives Date on File: 02/02/24 service: No Current occupational status: employed 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 Current occupational exposures/hazards: No Cognitive needs: No Hearing needs: No Vision needs: Yes (glasses) Meds Allergies Allergy/AdvReac Type Severity Reaction Status Date / Time hydrocodone (From VICODIN) Allergy Mild HIVES Verified 10/28/24 17:44 oxycodone (From PERCOCET) Allergy Mild HIVES Verified 10/28/24 17:44 azithromycin (AZITHROMYCIN) Allergy Unknown NAUSEA & Verified 10/28/24 17:44 VOMITING erythromycin base (From Allergy Unknown NAUSEA & Verified 10/28/24 17:44 ERYTHROCIN) VOMITING metformin AdvReac Mild Gastrointestinal Uncoded 10/28/24 06:55 Upset Active Medications: Current Medications Calcium Carbonate (Calcium Carbonate 750 Mg Tab.Chew) 750 mg PO Q4H PRN PRN Reason: Heartburn Docusate Sodium (Docusate Sodium 100 Mg Capsule) 100 mg PO BID ISAIAH Gabapentin (Gabapentin 100 Mg Capsule) 100 mg PO DAILY ISAIAH Heparin Sodium (Porcine) (Heparin Sodium,Porcine 5,000 Unit/Ml Vial) 5,000 unit SUBCUT Q8H ISAIAH Hydromorphone HCl (Hydromorphone Hcl 1 Mg/Ml Syringe) 0.5 mg IVPUSH Q2H PRN; Protocol PRN Reason: Pain, Severe (Pain Scale 7-10) Magnesium Sulfate (Magnesium Sulfate/H2o) 2 gm in 50 mls @ 25 mls/hr IV ONCE ONE Stop: 10/28/24 21:01 Last Admin: 10/28/24 19:22 Dose: 25 mls/hr Acetaminophen (Ofirmev) 1,000 mg in 100 mls @ 400 mls/hr IV Q6H ISAIAH Ketorolac Tromethamine (Ketorolac Tromethamine 30 Mg/Ml Vial) 30 mg IVPUSH Q6H PRN PRN Reason: Pain, Severe (Pain Scale 7-10) Stop: 11/02/24 19:49 Magnesium Hydroxide (Milk Of Magnesia 30 Ml Oral.Susp) 30 ml PO DAILY PRN PRN Reason: Constipation Melatonin (Melatonin 3 Mg Tablet) 6 mg PO BEDTIME PRN PRN Reason: Insomnia Metoprolol Succinate (Metoprolol Succinate Er 25 Mg Tab.Er.24h) 25 mg PO DAILY ISAIAH; Protocol Ondansetron HCl (Ondansetron Hcl 4 Mg/2 Ml Vial) 4 mg IVPUSH Q6H PRN PRN Reason: nausea Sodium Chloride (0.9 % Sodium Chloride Flush 3 Ml Syringe) 3 ml IVFLUSH QSHIFT ISAIAH Sumatriptan Succinate (Sumatriptan Succinate 100 Mg Tablet) 100 mg PO DAILY PRN PRN Reason: Migraine Headache Home Medications ?Medication ?Instructions ?Recorded ?Confirmed ?Last Taken ?Type bupropion HCl 300 mg 24 hr tablet, 300 mg PO DAILY 09/08/23 10/28/24 10/28/24 History extended release linaclotide 290 mcg capsule 290 mcg PO DAILY 10/28/24 10/28/24 10/28/24 History (Linzess) meloxicam 15 mg tablet 15 mg PO DAILY Pain 10/28/24 10/28/24 10/28/24 History omeprazole 40 mg capsule,delayed 40 mg PO BID@0630,1630 10/28/24 10/28/24 10/28/24 History release Physical Exam Vital Signs: Vital Signs: Last Vital Signs Temp 98.1 F 10/28/24 19:45 Pulse 108 H 10/28/24 19:45 Resp 19 10/28/24 19:45 BP 135/81 10/28/24 19:45 Pulse Ox 96 10/28/24 19:45 O2 Del Method Nasal Cannula 10/28/24 19:45 O2 Flow Rate 1.5 10/28/24 19:45 BMI result Body Mass Index 38.3 Const: Other: c/o pain General: no acute distress Resp: Effort & Inspection: normal respiratory effort Cardio: Rhythm: regular rhythm GI: Other: rectal exam shows ecchymosis in the perianal area with edema of her hemorrhoidectomy sites, no fluctuance, no cellulitis or any necrotizing process Palpation (GI): Soft to palpation, not firm and nontender Results Results Labs: Short CBC 10/28/24 Range/Units 18:32 WBC 12.1 H (4.8-10.8) X10*3/uL Hgb 13.5 (12.0-16.0) g/dl Hct 38.2 (37.0-47.0) % Plt Count 277 (160-400) X10*3/uL BMP 10/28/24 18:32 Sodium 139 Potassium 3.9 Chloride 106 Carbon Dioxide 26 BUN 19 H Creatinine 0.77 Calcium 8.6 Liver Function 10/28/24 Range/Units 18:32 Total Bilirubin 0.3 (0.0-1.0) mg/dL AST 31 (5-31) U/L ALT 36 H (0-31) U/L Alkaline Phosphatase 120 H (39-117) U/L Albumin 3.9 (3.5-5.0) g/dL Assessment and Plan (1) Postoperative pain: Status: Acute (2) Bleeding hemorrhoids: Status: Acute Plan 44F with multiple medical problems as above, here in the ED for postop pain. She had udnergone hemorrhoidectomy with Dr. Garcia this morning and was brought to the ED for uncontrolled postop pain and urinary retention. She does have some ecchymosis and edema of her hemorrhoidectomy sites which I explained to her is not unexpected with the kind of surgery that she had. She does appear to have pain poorly controlled by oral pain meds and she had asked to be admitted for better pain control. I will admit her and put her on a regimen of Dilaudid,Toradol and Ofirmev. She does have chronic pain with her back along with PTSD which may make her pain control more challenging. She is not toxic looking. She will also be placed on her other home meds. She understands the plan and is comfortable with this. Her was present during the discussion. The above was discussed with the ED staff. Quality Stroke Does the patient have a stroke diagnosis?: No VTE Prior VTE?: No VTE Risk Level:: Medical - moderate - high VTE Device Contraindication: N/A - Device Ordered VTE Drug Contraindication: N/A - Med Ordered Procedures Date of Service Date of Service: 10/31/24
[2024-10-28 20:27] LABS: Glucose, Whole Blood 143 mg/dL (60-115)
[2024-10-28 20:39] LABS: Appearance Urine Clear; Glucose Urine UA 250 mg/dL (Negative); PH 6.0 (5.0-9.0); Specific Gravity - Urine 1.025 (1.005-1.025)
--- NOTE | 2024-10-28 20:47 | PC.NURSE ---
pt ambulated to bathroom with tech assistance, urine provided and sent down to lab. Straight cath not needed at this time. Pt states still having pain 10/17.
--- NOTE | 2024-10-28 21:01 | PC.NURSE ---
pt offered Toradol for continued pain, pt declined as she takes a NSAID daily.
--- NOTE | 2024-10-28 21:18 | PC.NURSE ---
pt continues to report pain pt states does not like how prn dilaudid makes her feel
--- NOTE | 2024-10-28 21:23 | PHA.MEDREC ---
Addendum entered by Kimi King [facility] 10/28/24 21:46: REVIEWED BY PHARMACIST Original Note: Pharmacy Consult ? Medication Reconciliation Pharmacy has completed the medication reconciliation. Pt was in a lot of pain and not able to confirm much of her medications. Spoke with pt (Silas) and he was able to confirm the pt medications. Per pt still takes Bupropion 300mg once daily; stating pt has an overabundance of that at home, Cyclobenzaprine 10mg when absolutely needed for muscle spasms, Gabapentin 100mg; stating the pt takes 100-400mg at bedtime and took 300mg yesterday and Omeprazole 40mg tabs 1 BID. Pt confirmed the pt picked up the Hydromorphone 2mg tab after surgery today and took 2 doses (4mg) for her pain before coming in here.
--- NOTE | 2024-10-28 21:29 | PC.NURSE ---
pt medicated per MAR.
[2024-10-28] MEDS: 0.9 % Sodium Chloride Flush 3 ML SYRINGE IVFLUSH (22:19)
[2024-10-29 03:23] VITALS: BP 110/65; PULSE 64; RESP 18; TEMP 36; O2SAT 96
[2024-10-29 07:44] LABS: Glucose, Whole Blood 139 mg/dL (60-115)
[2024-10-29] MEDS: buPROPion HCl XL 300 MG TAB.ER.24H PO (07:51)
[2024-10-29] MEDS: 0.9 % Sodium Chloride Flush 3 ML SYRINGE IVFLUSH ×3 (07:51→19:45)
--- NOTE | 2024-10-29 07:51 | PM.PNGS ---
Subjective Subjective Date of Service: 10/29/24 Interval history: Complains of incisional pain, some relief with current meds Physical Exam Vital Signs: Vital Signs: Last Vital Signs Temp 96.8 F 10/29/24 03:23 Pulse 64 10/29/24 03:23 Resp 18 10/29/24 03:23 BP 110/65 10/29/24 03:23 Pulse Ox 96 10/29/24 03:23 O2 Del Method CPAP 10/29/24 03:23 O2 Flow Rate 2 10/28/24 22:01 BMI result Body Mass Index 38.4 Const: General: healthy appearing Nutritional Appearance: well nourished Orientation/consciousness: patient oriented x3 Resp: Effort & Inspection: normal respiratory effort, no audible wheezes, no cough and no respiratory distress Back/Spine/Pelvis: Other: Ecchymotic changes surrounding hemorrhoidal incision. No active bleeding identified and no evidence of infection at this time Neuro: General: patient oriented x3 Extrem: Other: No edema Objective Data Active Medications Albuterol Sulfate (Albuterol Sulfate 90 Mcg 8 Gm Inhaler) 2 puff INHALE Q4H PRN PRN Reason: wheezing Bupropion HCl (Bupropion Hcl Xl 300 Mg Tab.Er.24h) 300 mg PO DAILY [facility] Last Admin: 10/29/24 07:51 Dose: 300 mg Documented By: DOLORES Calcium Carbonate (Calcium Carbonate 750 Mg Tab.Chew) 750 mg PO Q4H PRN PRN Reason: Heartburn Docusate Sodium (Docusate Sodium 100 Mg Capsule) 100 mg PO BID [facility] Last Admin: 10/29/24 07:51 Dose: 100 mg Documented By: DOLORES Gabapentin (Gabapentin 100 Mg Capsule) 100 mg PO BEDTIME [facility] Heparin Sodium (Porcine) (Heparin Sodium,Porcine 5,000 Unit/Ml Vial) 5,000 unit SUBCUT Q8H [facility] Hydromorphone HCl (Hydromorphone Hcl 1 Mg/Ml Syringe) 0.5 mg IVPUSH Q2H PRN; Protocol PRN Reason: Pain, Severe (Pain Scale 7-10) Acetaminophen (Ofirmev) 1,000 mg in 100 mls @ 400 mls/hr IV Q6H [facility] Last Infusion: 10/29/24 06:13 Dose: Infused Documented By: JESE Ketorolac Tromethamine (Ketorolac Tromethamine 30 Mg/Ml Vial) 30 mg IVPUSH Q6H PRN PRN Reason: Pain, Severe (Pain Scale 7-10) Stop: 11/02/24 19:49 Last Admin: 10/29/24 05:55 Dose: 30 mg Documented By: MICK Magnesium Hydroxide (Milk Of Magnesia 30 Ml Oral.Susp) 30 ml PO DAILY PRN PRN Reason: Constipation Melatonin (Melatonin 3 Mg Tablet) 6 mg PO BEDTIME PRN PRN Reason: Insomnia Metoprolol Tartrate (Metoprolol Tartrate 25 Mg Tablet) 25 mg PO DAILY [facility]; Protocol Last Admin: 10/29/24 07:51 Dose: 25 mg Documented By: DOLORES Ondansetron HCl (Ondansetron Hcl 4 Mg/2 Ml Vial) 4 mg IVPUSH Q6H PRN PRN Reason: nausea Last Admin: 10/28/24 21:20 Dose: 4 mg Documented By: BROOKE Sodium Chloride (0.9 % Sodium Chloride Flush 3 Ml Syringe) [facility] Last Admin: 10/29/24 07:51 Dose: 3 ml Documented By: DOLORES Sumatriptan Succinate (Sumatriptan Succinate 100 Mg Tablet) 100 mg PO DAILY PRN PRN Reason: Migraine Headache Labs 10/28/24 18:32 10/28/24 18:32 Labs: Laboratory Results - last 24 hr 10/28/24 10/28/24 10/28/24 18:32 20:09 20:23 MCV 85.7 MCH 30.3 MCHC 35.3 H RDW 12.8 Plt Count 277 MPV 9.5 Immature Gran % (Auto) 0.5 H Neut % (Auto) 79.8 H Lymph % (Auto) 12.0 L J[place] % (Auto) 6.3 Eos % (Auto) 1.2 Baso % (Auto) 0.2 Lymph # (Auto) 1.5 J[place] # (Auto) 0.8 Eos # (Auto) 0.1 Baso # (Auto) 0.0 Abs Immat Gran (auto) 0.06 H Absolute Neuts (auto) 9.7 H Absolute Nucleated RBC 0.000 Nucleated RBC % (auto) 0.0 Anion Gap 11 L Estim Creat Clear Calc 105.1 Estimated GFR > 60 POC Glucose 143 H Random Glucose 156 H Lactic Acid 1.2 Calcium 8.6 Magnesium 1.5 L Total Bilirubin 0.3 AST 31 ALT 36 H Alkaline Phosphatase 120 H Total Protein 7.0 Albumin 3.9 Beta HCG, Quant < 2 Urine Color Yellow Urine Appearance Clear Urine pH 6.0 Ur Specific Flora 1.025 Urine Protein Trace Urine Glucose (UA) 250 H Urine Ketones Negative Urine Blood Negative Urine Nitrite Negative Ur Leukocyte Esterase Negative Influenza Type A (PCR) NEGATIVE Influenza Type B (PCR) NEGATIVE RSV RNA Qual (PCR) NEGATIVE SARS-CoV-2 RNA (RT-PCR) NEGATIVE 10/29/24 07:39 MCV MCH MCHC RDW Plt Count MPV Immature Gran % (Auto) Neut % (Auto) Lymph % (Auto) Jerauld % (Auto) Eos % (Auto) Baso % (Auto) Lymph # (Auto) Jerauld # (Auto) Eos # (Auto) Baso # (Auto) Abs Immat Gran (auto) Absolute Neuts (auto) Absolute Nucleated RBC Nucleated RBC % (auto) Anion Gap Estim Creat Clear Calc Estimated GFR POC Glucose 139 H Random Glucose Lactic Acid Calcium Magnesium Total Bilirubin AST ALT Alkaline Phosphatase Total Protein Albumin Beta HCG, Quant Urine Color Urine Appearance Urine pH Ur Specific Flora Urine Protein Urine Glucose (UA) Urine Ketones Urine Blood Urine Nitrite Ur Leukocyte Esterase Influenza Type A (PCR) Influenza Type B (PCR) RSV RNA Qual (PCR) SARS-CoV-2 RNA (RT-PCR) Procedures Date of Service Date of Service: 10/29/24 Progress Note: A&P Assessment and plan (1) S/P hemorrhoidectomy: Status: Acute Plan 44-year-old female patient returning to ED for postop pain following hemorrhoidectomy. Wounds are clean with some surrounding ecchymosis as expected. We will start Sitz baths q.i.d. Encouraged out of bed and ambulation. Patient will need continued hospitalization due to postoperative pain Time Spent With Patient Time: Total time managing care of this patient today ____ minutes. Quality Stroke Does the patient have a stroke diagnosis?: No VTE Prior VTE?: No VTE Risk Level:: Medical - moderate - high VTE Device Contraindication: N/A - Device Ordered VTE Drug Contraindication: N/A - Med Ordered
[2024-10-29 08:00] VITALS: BP 123/60; PULSE 64; RESP 18; TEMP 36.1; O2SAT 94
[2024-10-29 11:40] LABS: Glucose, Whole Blood 178 mg/dL (60-115)
--- NOTE | 2024-10-29 14:06 | MHC.CM.PN ---
DX Abdominal pain Posthemorrhoidectomy She lives with her spouse and adult children She is independent with all functional mobility. DP home self care. Pts spouse will provide transportation home.
[2024-10-29 15:53] VITALS: BP 133/89; PULSE 69; RESP 18; TEMP 36.1; O2SAT 99
[2024-10-29 16:29] LABS: Glucose, Whole Blood 142 mg/dL (60-115)
[2024-10-29 19:25] VITALS: BP 147/74; PULSE 72; RESP 18; TEMP 36.6; O2SAT 99
[2024-10-29 19:47] VITALS: RESP 20
[2024-10-29] MEDS: Lidocaine HCl 2 % Jelly 5 ML TUBE 1 APPL TOPICAL (20:36)
[2024-10-29 20:46] LABS: Glucose, Whole Blood 159 mg/dL (60-115)
[2024-10-29 21:53] VITALS: RESP 22
[2024-10-30] VITALS (8 sets, daily range): BP systolic 109–148; BP diastolic 58–88; PULSE 63–82; RESP 14–18; TEMP 36.2–36.9; O2SAT 93–97
--- NOTE | 2024-10-30 01:18 | PC.NURSE ---
Patient seen at 0015, she denied need for st cath. She stated that she had just gone to the bathroom a short while prior to me meeting her and that she felt she was able to empty her bladder.
--- NOTE | 2024-10-30 07:13 | PC.NURSE ---
Dr Mayes messaged via [employer] at 0223. Notifying of patient c/o dizziness and room spinning (although pain was better) after new dose of 1.5mg Dilaudid. Notified of patients current vitals at that time, which were stable. Inquired if MD would like to decrease dose. Dose unchanged. Messaged again at [phone] for additional antiemetic as pt is vomiting after zofran administration and has the feeling she is bearing down when vomiting. MD agreed to add something for nausea.
[2024-10-30] MEDS: 0.9 % Sodium Chloride Flush 3 ML SYRINGE IVFLUSH ×2 (07:21→16:32)
[2024-10-30 07:29] LABS: Glucose, Whole Blood 135 mg/dL (60-115)
[2024-10-30] MEDS: buPROPion HCl XL 300 MG TAB.ER.24H PO (07:41)
--- NOTE | 2024-10-30 08:55 | PM.PNGS ---
Subjective Subjective Date of Service: 10/30/24 Interval history: Did one sitz bath yesterday with some improvement in her pain. She reports she had a bowel movement last night which sent her over the edge in pain. She has been receiving dilaudid 1.5mg IV for pain. She has now developed nausea and vomiting. It is improved now and she is eating a cookie. Physical Exam Vital Signs: Vital Signs: Last Vital Signs Temp 98.5 F 10/30/24 07:42 Pulse 71 10/30/24 07:42 Resp 16 10/30/24 07:42 BP 125/88 10/30/24 07:42 Pulse Ox 95 10/30/24 07:42 O2 Del Method Room Air 10/30/24 07:42 O2 Flow Rate 2 10/28/24 22:01 BMI result Body Mass Index 38.4 Const: General: comfortable, no acute distress and alert Orientation/consciousness: patient oriented x3 Resp: Effort & Inspection: normal respiratory effort GI: Other: rectal exam- edema and ecchymosis improving, no bleeding noted Skin: General skin exam: no rashes or lesions noted Neuro: General: patient oriented x3 and moves all extremities Objective Data Active Medications Albuterol Sulfate (Albuterol Sulfate 90 Mcg 8 Gm Inhaler) 2 puff INHALE Q4H PRN PRN Reason: wheezing Bupropion HCl (Bupropion Hcl Xl 300 Mg Tab.Er.24h) 300 mg PO DAILY [facility] Last Admin: 10/30/24 07:41 Dose: 300 mg Documented By: DOLORES Calcium Carbonate (Calcium Carbonate 750 Mg Tab.Chew) 750 mg PO Q4H PRN PRN Reason: Heartburn Docusate Sodium (Docusate Sodium 100 Mg Capsule) 100 mg PO BID [facility] Last Admin: 10/30/24 07:41 Dose: 100 mg Documented By: DOLORES Gabapentin (Gabapentin 100 Mg Capsule) 100 mg PO BEDTIME [facility] Last Admin: 10/29/24 19:45 Dose: 100 mg Documented By: IESHA Heparin Sodium (Porcine) (Heparin Sodium,Porcine 5,000 Unit/Ml Vial) 5,000 unit SUBCUT Q8H [facility] Last Admin: 10/30/24 01:29 Dose: 5,000 unit Documented By: OSCAR Hydromorphone HCl (Hydromorphone Hcl 1 Mg/Ml Syringe) 1.5 mg IVPUSH Q2H PRN; Protocol PRN Reason: Pain, Severe (Pain Scale 7-10) Last Admin: 10/30/24 00:57 Dose: 1.5 mg Documented By: OSCAR Acetaminophen (Ofirmev) 1,000 mg in 100 mls @ 400 mls/hr IV Q6H [facility] Last Infusion: 10/30/24 07:19 Dose: Infused Documented By: DOLORES Ketorolac Tromethamine (Ketorolac Tromethamine 30 Mg/Ml Vial) 30 mg IVPUSH Q6H PRN PRN Reason: Pain, Severe (Pain Scale 7-10) Stop: 11/02/24 19:49 Last Admin: 10/30/24 06:42 Dose: 30 mg Documented By: OSCAR Lidocaine HCl (Lidocaine Hcl 2 % Jelly 5 Ml Tube) 1 appl TOPICAL TID PRN; Protocol PRN Reason: hemorrhoidal pain Last Admin: 10/29/24 20:36 Dose: 1 appl Documented By: IESHA Comments: applied to hemorrhoidal pain /rectum Lorazepam (Lorazepam 2 Mg/Ml Vial) 0.5 mg IVPUSH Q4H PRN PRN Reason: Anxiety Magnesium Hydroxide (Milk Of Magnesia 30 Ml Oral.Susp) 30 ml PO DAILY PRN PRN Reason: Constipation Melatonin (Melatonin 3 Mg Tablet) 6 mg PO BEDTIME PRN PRN Reason: Insomnia Metoclopramide HCl (Metoclopramide Hcl 10 Mg/2 Ml Vial) 10 mg IVPUSH Q6H PRN PRN Reason: Nausea and Vomiting Metoprolol Tartrate (Metoprolol Tartrate 25 Mg Tablet) 25 mg PO DAILY [facility]; Protocol Last Admin: 10/30/24 07:41 Dose: 25 mg Documented By: DOLORES Ondansetron HCl (Ondansetron Hcl 4 Mg/2 Ml Vial) 4 mg IVPUSH Q6H PRN PRN Reason: nausea Last Admin: 10/30/24 02:14 Dose: 4 mg Documented By: OSCAR Sodium Chloride (0.9 % Sodium Chloride Flush 3 Ml Syringe) [facility] Last Admin: 10/30/24 07:21 Dose: 3 ml Documented By: DOLORES Sumatriptan Succinate (Sumatriptan Succinate 100 Mg Tablet) 100 mg PO DAILY PRN PRN Reason: Migraine Headache Last Admin: 10/30/24 07:41 Dose: 100 mg Documented By: DOLORES Labs 10/28/24 18:32 10/28/24 18:32 Labs: Laboratory Results - last 24 hr 10/29/24 10/29/24 10/29/24 11:26 16:15 20:42 POC Glucose 178 H 142 H 159 H 10/30/24 07:14 POC Glucose 135 H Microbiology Microbiology Results: Microbiology 10/28/24 18:32 Blood Culture - Preliminary Blood - Venous No growth after 24 hours. 10/28/24 18:32 Blood Culture - Preliminary Blood - Venous No growth after 24 hours. Procedures Date of Service Date of Service: 10/30/24 Progress Note: A&P Assessment and plan (1) S/P hemorrhoidectomy: Status: Acute Plan Encouraged use of oral analgesics for pain today in preparation for discharge to home. Continue sitz baths q4h and following bowel movements. On colace BID. Home when pain better controlled, possibly later today or tomorrow. Patient comfortable with plan. Time Spent With Patient Time: Total time managing care of this patient today ____ minutes. Quality Stroke Does the patient have a stroke diagnosis?: No VTE Prior VTE?: No VTE Risk Level:: Medical - moderate - high VTE Device Contraindication: N/A - Device Ordered VTE Drug Contraindication: N/A - Med Ordered
[2024-10-30 11:13] LABS: Glucose, Whole Blood 163 mg/dL (60-115)
--- NOTE | 2024-10-30 14:18 | MHC.CM.PN ---
Patient is not medically cleared for discharge. She requires Pain Management. The plan is to transition to PO analgesics for discharge. DP home selfcare. Patients spouse will provide transportation home.
[2024-10-30 16:35] LABS: Glucose, Whole Blood 102 mg/dL (60-115)
[2024-10-30] MEDS: Milk of Magnesia 30 ML ORAL.SUSP PO (19:38)
[2024-10-30 20:47] LABS: Glucose, Whole Blood 162 mg/dL (60-115)
[2024-10-31] MEDS: 0.9 % Sodium Chloride Flush 3 ML SYRINGE IVFLUSH ×2 (01:16→08:01)
[2024-10-31 04:00] VITALS: BP 121/80; PULSE 84; RESP 20; TEMP 36.5; O2SAT 94
[2024-10-31 07:35] LABS: Glucose, Whole Blood 111 mg/dL (60-115)
--- NOTE | 2024-10-31 07:50 | P.PNGS_ITS ---
Subjective Subjective Date of Service: 10/31/24 <Jil Khan PA-C - Last Filed: 10/31/24 07:53> 10/31/24 <Diego Garcia MD - Last Filed: 10/31/24 08:14> Interval history: Reports she is comfortable lying down however her pain increases when she sits up, ambulates and has a BM. Does not think she can go home in this amount of pain as she wants to get up and do things for herself. <Jil Khan PA-C - Last Filed: 10/31/24 07:53> Physical Exam 2 Vital Signs: Vital Signs: Last Vital Signs Temp 97.7 F 10/31/24 04:00 Pulse 84 10/31/24 04:00 Resp 20 10/31/24 04:00 BP 121/80 10/31/24 04:00 Pulse Ox 94 10/31/24 04:00 O2 Del Method Room Air 10/31/24 04:00 O2 Flow Rate 2 10/28/24 22:01 BMI result Body Mass Index 38.4 <Jil Khan PA-C - Last Filed: 10/31/24 07:53> Const: General: comfortable, no acute distress and alert <LASHONDA Pulido Last Filed: 10/31/24 07:53> Orientation/consciousness: patient oriented x3 <Jil Khan PA-C - Last Filed: 10/31/24 07:53> Resp: Effort & Inspection: normal respiratory effort <LASHONDA Pulido Last Filed: 10/31/24 07:53> GI: Other: perirectal ecchymosis and edema improving <Jil Khan PA-C - Last Filed: 10/31/24 07:53> Skin: General skin exam: no rashes or lesions noted <LASHONDA Pulido Last Filed: 10/31/24 07:53> Neuro: General: patient oriented x3 and moves all extremities <LASHONDA Pulido Last Filed: 10/31/24 07:53> Objective Data Active Medications Acetaminophen (Acetaminophen 325 Mg Tablet) 975 mg PO Q6H [facility] Albuterol Sulfate (Albuterol Sulfate 90 Mcg 8 Gm Inhaler) 2 puff INHALE Q4H PRN PRN Reason: wheezing Bupropion HCl (Bupropion Hcl Xl 300 Mg Tab.Er.24h) 300 mg PO DAILY [facility] Last Admin: 10/30/24 07:41 Dose: 300 mg Documented By: DOLORES Calcium Carbonate (Calcium Carbonate 750 Mg Tab.Chew) 750 mg PO Q4H PRN PRN Reason: Heartburn Docusate Sodium (Docusate Sodium 100 Mg Capsule) 100 mg PO BID [facility] Last Admin: 10/30/24 19:38 Dose: 100 mg Documented By: SIOMARA Gabapentin (Gabapentin 100 Mg Capsule) 100 mg PO BEDTIME [facility] Last Admin: 10/30/24 19:38 Dose: 100 mg Documented By: SIOMARA Heparin Sodium (Porcine) (Heparin Sodium,Porcine 5,000 Unit/Ml Vial) 5,000 unit SUBCUT Q8H [facility] Last Admin: 10/31/24 03:15 Dose: 5,000 unit Documented By: SIOMARA Hydromorphone HCl (Hydromorphone Hcl 1 Mg/Ml Syringe) 1 mg IVPUSH Q4H PRN; Protocol PRN Reason: Pain, Severe (Pain Scale 7-10) Hydromorphone HCl (Hydromorphone Hcl 2 Mg Tablet) 4 mg PO Q4H PRN PRN Reason: Pain, Moderate(Pain Scale 4-6) Last Admin: 10/31/24 05:39 Dose: 4 mg Documented By: SIOMARA Lidocaine HCl (Lidocaine Hcl 2 % Jelly 5 Ml Tube) 1 appl TOPICAL TID [facility]; Protocol Lorazepam (Lorazepam 1 Mg Tablet) 1 mg PO Q4H PRN PRN Reason: Anxiety Last Admin: 10/31/24 03:15 Dose: 1 mg Documented By: SIOMARA Magnesium Hydroxide (Milk Of Magnesia 30 Ml Oral.Susp) 30 ml PO DAILY PRN PRN Reason: Constipation Last Admin: 10/30/24 19:38 Dose: 30 ml Documented By: SIOMARA Melatonin (Melatonin 3 Mg Tablet) 6 mg PO BEDTIME PRN PRN Reason: Insomnia Metoclopramide HCl (Metoclopramide Hcl 10 Mg/2 Ml Vial) 10 mg IVPUSH Q6H PRN PRN Reason: Nausea and Vomiting Last Admin: 10/30/24 19:39 Dose: 10 mg Documented By: SIOMARA Metoprolol Tartrate (Metoprolol Tartrate 25 Mg Tablet) 25 mg PO DAILY [facility]; Protocol Last Admin: 10/30/24 07:41 Dose: 25 mg Documented By: DOLORES Naproxen (Naproxen 500 Mg Tablet) 500 mg PO BID [facility] Ondansetron HCl (Ondansetron Hcl 4 Mg/2 Ml Vial) 4 mg IVPUSH Q6H PRN PRN Reason: nausea Last Admin: 10/30/24 02:14 Dose: 4 mg Documented By: OSCAR Sodium Chloride (0.9 % Sodium Chloride Flush 3 Ml Syringe) 3 ml IVFLUSH QSHIFT [facility] Last Admin: 10/31/24 01:16 Dose: 3 ml Documented By: SIOMARA Sumatriptan Succinate (Sumatriptan Succinate 100 Mg Tablet) 100 mg PO DAILY PRN PRN Reason: Migraine Headache Last Admin: 10/30/24 07:41 Dose: 100 mg Documented By: DOLORES <Jil Khan PA-C - Last Filed: 10/31/24 07:53> Labs CBC & Chem 7: 10/28/24 18:32 10/28/24 18:32 <Jil Khan PA-C - Last Filed: 10/31/24 07:53> Labs: Laboratory Results - last 24 hr 10/30/24 10/30/24 10/30/24 11:06 16:31 20:34 POC Glucose 163 H 102 162 H 10/31/24 07:32 POC Glucose 111 <Jil Khan PA-C - Last Filed: 10/31/24 07:53> Microbiology Microbiology Results: Microbiology 10/28/24 18:32 Blood Culture - Preliminary Blood - Venous No growth after 48 hours. 10/28/24 18:32 Blood Culture - Preliminary Blood - Venous No growth after 48 hours. <Jil Khan PA-C - Last Filed: 10/31/24 07:53> Procedures Date of Service Date of Service: 10/31/24 <Jil Khan PA-C - Last Filed: 10/31/24 07:53> 10/31/24 <Diego Garcia MD - Last Filed: 10/31/24 08:14> Progress Note: A&P Assessment and plan (1) S/P hemorrhoidectomy: Status: Acute <Jil Khan PA-C - Last Filed: 10/31/24 07:53> Assessment and Plan: Continues with difficulty with pain control despite dilaudid 4mg PO q4h as needed. Continue sitz baths. Will make tylenol ATC and resume her home meloxicam. Will make lidocaine [place] scheduled as well. Hopefully home later today. <Jil Khan PA-C - Last Filed: 10/31/24 07:53> Continues with difficulty with pain control despite dilaudid 4mg PO q4h as needed. Continue sitz baths. Will make tylenol ATC and resume her home meloxicam. Will make lidocaine [place] scheduled as well. Hopefully home later today. Agree with conversion to po meds. Needs to continue sitz baths ATC, especially after BM to keep incision clean. <Diego Garcia MD - Last Filed: 10/31/24 08:14> Time Spent With Patient Time: Total time managing care of this patient today ____ minutes. <Jil Khan PA-C - Last Filed: 10/31/24 07:53> Quality Stroke Does the patient have a stroke diagnosis?: No <Jil Khan PA-C - Last Filed: 10/31/24 07:53> VTE Prior VTE?: No <Jil Khan PA-C - Last Filed: 10/31/24 07:53> VTE Risk Level:: Medical - moderate - high <Jil Khan PA-C - Last Filed: 10/31/24 07:53> VTE Device Contraindication: N/A - Device Ordered <Jil Khan PA-C - Last Filed: 10/31/24 07:53> VTE Drug Contraindication: N/A - Med Ordered <Jil Khan PA-C - Last Filed: 10/31/24 07:53>
[2024-10-31] MEDS: buPROPion HCl XL 300 MG TAB.ER.24H PO (07:59)
[2024-10-31 08:00] VITALS: BP 127/82; PULSE 75; RESP 18; TEMP 36.1; O2SAT 96
[2024-10-31] MEDS: Lidocaine HCl 2 % Jelly 5 ML TUBE 1 APPL TOPICAL (09:13)
[2024-10-31 11:14] LABS: Glucose, Whole Blood 195 mg/dL (60-115)
--- NOTE | 2024-10-31 11:27 | MHC.CM.PN ---
PATIENT MEDICALLY CLEARED FOR DC HOME SELF CARE ON PO PAIN MEDS. CM DISCUSSED DC PLAY W/ PATIENT WHO IS IN AGREEMENT. WILL PROVIDE TRANSPORT 12-1PM. RN AWARE.
--- NOTE | 2024-10-31 14:46 | PM.DS ---
DS: Providers Provider Date of Service: 10/31/24 Date of admission: 10/28/24 19:50 Date of discharge: 10/31/24 Primary care physician: JAZ Travis Attending physician on admission: Ti Taylor Attending physician on discharge: Diego Garcia DS: Diagnosis Discharge Diagnosis (1) Postoperative pain: Status: Acute (2) Bleeding hemorrhoids: Status: Acute DS: Summary Hospital Course Hospital Course: HPI AT ADMISSION: Linda Martinez is a 44 year old female with migraine, diet-controlled diabetes, HTN, chronic pain, fibromyalgia,anxiety, PTSD, lupus, IGNACIO here in the ED for pain after hemorrhoidectomy today. She had undergone hemorrhoidectomy x 2 columns today for bleeding hemorrhoids with Dr. Garcia. She felt that as soon as her anesthesia wore off, she had severe pain in her anus. She says she could not void at home because of the pain. She felt the hemorrhoidectomy sites to be swollen. She says her oral pain meds did not control her pain at all. In view of the above she was brought to the ED by her . She also says she has had a history of alternating diarrhea and constipation for many months. HOSPITAL COURSE: She was admitted to the surgical service for post operative pain control. She did have some ecchymosis and edema of her hemorrhoidectomy sites which was expected and this was discussed with her. She was started on both IV and oral analgesics and on a bowel regimen. She was instructed to do sitz baths q2h. She remained inpatient for 4 days for pain control. She was gradually transitioned to oral analgesics. On the day of discharge, she was comfortable on oral analsegics. She was moving her bowels. Her ecchymosis was improved. She was discharged to home on 10/31/24 in stable condition with f/u in the office in 1 week. She was instructed to continue sitz baths at least QID and following bowel movements. Status at Discharge Functional status at discharge: independent ambulation Time Attestation Discharge Coordination Time (in mins): 35 Quality: Safe Use of Opioids Does Pt have an Active Cancer Diagnosis on the Problem List?: No Quality: Stroke Does the patient have a stroke diagnosis?: No Physical Exam Vital Signs: Vital Signs: Last Vital Signs Temp 97.0 F 10/31/24 08:00 Pulse 75 10/31/24 08:00 Resp 18 10/31/24 08:00 BP 127/82 10/31/24 08:00 Pulse Ox 96 10/31/24 08:00 O2 Del Method Room Air 10/31/24 08:00 O2 Flow Rate 2 10/28/24 22:01 BMI result Body Mass Index 38.4 Const: General: comfortable, no acute distress and alert Orientation/consciousness: patient oriented x3 Resp: Effort & Inspection: normal respiratory effort Skin: General skin exam: no rashes or lesions noted Neuro: General: patient oriented x3 and moves all extremities DS: Data Data Completed and Pending Labs on day of discharge: Laboratory Results - last 24 hr 10/31/24 11:05 POC Glucose 195 H Preliminary micro results at discharge 10/28/24 18:32 Blood Culture - Preliminary Blood - Venous No growth after 48 hours. 10/28/24 18:32 Blood Culture - Preliminary Blood - Venous No growth after 48 hours. Discharge Plan Discharge Anticipated Discharge Date/Time: 10/30/24 13:01 Patient Disposition: Home, Self-Care Discharge Diagnosis: s/p hemorrhoidectomy Referrals: Diego Garcia MD [Physician, General Surgery] - 1 Week Minerva Zuleta FNP-BC [Primary Care Provider, Internal Medicine] - 1 Week Discharge Medications: New hydromorphone [Dilaudid] 4 mg tablet 4 mg PO Q6H PRN (Reason: pain (scale score 7-10)) Qty: 20 0RF Rx Instructions: Partial Fill upon patient request. Continued sumatriptan succinate [Imitrex] 100 mg tablet 100 mg PO DAILY PRN (Reason: migraine headache) Qty: 7 4RF Rx Instructions: 100 mg orally PRN; gabapentin 100 mg capsule 100 - 400 mg PO BEDTIME 30 Days Qty: 90 3RF (DME) blood-glucose meter [FreeStyle [place] Lite] Kit See Rx Instructions .ROUTE .MEDSUPPLY Qty: 1 0RF Rx Instructions: As directed cyclobenzaprine 10 mg tablet 10 mg PO TID PRN (Reason: muscle spasm) Qty: 20 0RF hydromorphone [Dilaudid] 2 mg tablet 2 mg PO Q6H PRN (Reason: pain (scale score 7-10)) Qty: 20 0RF Rx Instructions: Partial Fill upon patient request. acetaminophen [Tylenol Extra Strength] 500 mg tablet 1,000 mg PO Q8H PRN (Reason: back pain) Qty: 60 0RF meloxicam 15 mg tablet 15 mg PO DAILY Linzess 290 mcg capsule 290 mcg PO DAILY omeprazole 40 mg capsule,delayed release(DR/EC) 40 mg PO BID@0630,1630 bupropion HCl 300 mg tablet extended release 24 hr 300 mg PO DAILY albuterol sulfate 90 mcg/actuation HFA aerosol inhaler 2 puff inhalation Q4-6H PRN (Reason: shortness of breath or wheezing) Qty: 1 3RF ondansetron 4 mg tablet,disintegrating 4 mg PO Q8H PRN (Reason: nausea and vomiting) 5 Days Qty: 15 12RF docusate sodium [Colace] 100 mg capsule 100 mg PO BID 30 Days Qty: 60 3RF lidocaine 5 % adhesive patch,medicated 1 patch topical DAILY PRN (Reason: Pain) Qty: 30 0RF Rx Instructions: leave on most painful area for up to 12 hrs cholecalciferol (vitamin D3) 50 mcg (2,000 unit) capsule 50 mcg PO DAILY Qty: 90 2RF (DME) FreeStyle Lite Strips Strip See Rx Instructions .ROUTE .MEDSUPPLY Qty: 100 12RF Rx Instructions: twice per day atorvastatin 10 mg tablet 10 mg PO BEDTIME Qty: 90 0RF lisinopril 5 mg tablet 5 mg PO DAILY Qty: 90 0RF metoprolol tartrate 25 mg tablet 25 mg PO DAILY Qty: 90 0RF Discharge Orders: Discharge Order (Routine); Ordered 10/31/24 Ordered By: Diego Garcia Diet: Advance to usual diet Activity on Discharge: As tolerated Stand Alone Forms: Patient Portal Discharge page Print Language: Slovenian Activity Restrictions/Additional Instructions: Hot sitz baths three times a day and after bowel movements Follow up in office in a week. ([phone]) Call Your Doctor Or Return to ED If: ? ? -Your temperature exceeds 101.5? F? ? ? -You experience excessive pain or swelling ? ? -You have an unexpected reaction to medication ? ? -You experience continued vomiting/nausea Care Plan Goals: return to normal BM, resolution of post operative pain Health Concerns: painful bleeding hemorrhoids Plan of Treatment: post op pain control Assessment: painful bleeding hemorrhoids Discharge Date/Time: 10/31/24 12:34
== END 2024-10-31 12:34 | disposition home or self-care (01) | DRG 861 ==
LOC: HO.ED 18:18 → HO.EDOVER 20:21 → HO.S3 20:53
PROVIDERS: Physician Assistant Medical; Admitting Provider Surgery; Emergency Provider Emergency Medicine; PCP Nurse Practitioner Family; Visit Provider Surgery
DX: G89.18 Other acute postprocedural pain (principal); K59.09 Other constipation; Z20.822 Contact with and (suspected) exposure to COVID-19; Z87.891 Personal history of nicotine dependence; Z79.899 Other long term (current) drug therapy
CPT/HCPCS: 36415; 71045; 80053; 81003; 82947; 83605; 83735; 84702; 85025; 87040; 87637; 99285; J0131; J0696; J1171; J1644; J1885; J2405; J2765; J3475

== ENCOUNTER → 2024-10-28 18:22 | Outpatient (BNV) | payer OTHER, SELFPAY | PROVIDERS: PCP Nurse Practitioner Family; Visit Provider Radiology Neuroradiology | DX: R50.9 Fever, unspecified (principal) | CPT/HCPCS: 71045 ==

== ENCOUNTER → 2024-10-28 19:50 | Outpatient (BNV) | payer OTHER, SELFPAY | PROVIDERS: Admitting Provider Surgery; Emergency Provider Emergency Medicine; PCP Nurse Practitioner Family; Visit Provider Surgery | DX: Z98.890 Other specified postprocedural states (principal); Z87.19 Personal history of other diseases of the digestive system | CPT/HCPCS: 99024 ==

== ENCOUNTER 2024-11-03 18:43 | Emergency (ER) | payer OTHER, SELFPAY ==
[2024-11-03 19:00] VITALS: BP 170/100; PULSE 87; O2SAT 98
[2024-11-03 19:02] VITALS: BP 196/104; PULSE 90; RESP 24; TEMP 36.7; O2SAT 96; BMI 37.2
[2024-11-03 21:07] VITALS: BP 113/75; PULSE 80; TEMP 36.5; O2SAT 100
--- NOTE | 2024-11-03 21:20 | ED.GENADULT ---
HPI - General Adult General Chief complaint: General Medical Stated complaint: rectal bleeding/pain, s/p hemorrhoid sx Monday Time Seen by Provider: 11/03/24 21:20 Source: patient, family, EMS, RN notes reviewed and old records reviewed Mode of arrival: EMS Limitations: no limitations History of Present Illness ED Provider: Dr. Sonal Nickerson HPI narrative: 44 year old female with history of DM, HTN, CAD, IGNACIO, anemia, JONATHON, MDD, Bipolar disorder, FM, presenting with rectal pain that has been ongoing for more than a week since having 3 column hemorrhoidectomy at at day surgery by Dr. Garcia on 10/28. At that time, she had to be readmitted to the hospital due to poor post op pain control and was ultimately discharged home with oral dilaudid on 11/01. Today she returns with continued pain and bleeding uncontrolled by oral dilaudid, tylenol, motrin, or meloxicam. Unable to sleep due to pain. Has been having liquid BMs that are very irriating and wiping is also very painful. Did not call the surgeon alda prior to coming to the ED. No reported fever. Has nausea and poor apetite but no vomiting. No chest pain or difficulty breathing. Related Data Home Medications ?Medication ?Instructions ?Recorded ?Confirmed bupropion HCl 300 mg 24 hr tablet, 300 mg PO DAILY 09/08/23 11/04/24 extended release linaclotide 290 mcg capsule 290 mcg PO DAILY 10/28/24 11/04/24 (Linzess) meloxicam 15 mg tablet 15 mg PO DAILY Pain 10/28/24 11/04/24 omeprazole 40 mg capsule,delayed 40 mg PO BID@0630,1630 10/28/24 11/04/24 release Previous Rx's ?Medication ?Instructions ?Recorded blood-glucose meter (FreeStyle #1 ea 07/20/20 Swifton Lite kit) acetaminophen 500 mg tablet 1,000 mg (2 x 500 mg) PO Q8H PRN 08/01/23 (Tylenol Extra Strength) back pain #60 tabs albuterol sulfate 90 mcg/actuation 2 puff inhalation Q4-6H PRN 09/19/23 aerosol inhaler shortness of breath or wheezing #1 ea ondansetron 4 mg disintegrating 4 mg PO Q8H PRN nausea and 01/22/24 tablet vomiting 5 days #15 tabs docusate sodium 100 mg capsule 100 mg PO BID constipation 30 days 04/12/24 (Colace) #60 caps lidocaine 5 % topical patch 1 patch topical DAILY PRN Pain #30 04/12/24 ea cholecalciferol (vitamin D3) 50 50 mcg PO DAILY #90 caps 06/04/24 mcg (2,000 unit) capsule sumatriptan succinate 100 mg 100 mg PO DAILY PRN migraine 06/17/24 tablet (Imitrex) headache #7 tabs gabapentin 100 mg capsule 100 - 400 mg (1 - 4 x 100 mg) PO 06/24/24 BEDTIME 30 days #90 caps cyclobenzaprine 10 mg tablet 10 mg PO TID PRN muscle spasm #20 07/26/24 tabs atorvastatin 10 mg tablet 10 mg PO BEDTIME #90 tabs 09/04/24 blood sugar diagnostic (FreeStyle #100 ea 09/04/24 Lite Strips) lisinopril 5 mg tablet 5 mg PO DAILY #90 tabs 09/04/24 metoprolol tartrate 25 mg tablet 25 mg PO DAILY #90 tabs 09/04/24 hydromorphone 4 mg tablet 4 mg PO Q6H PRN pain (scale score 10/31/24 (Dilaudid) 7-10) #20 tabs amitriptyline 50 mg tablet 50 mg PO BEDTIME #90 tabs 11/04/24 doxycycline hyclate 100 mg tablet 100 mg PO BID #20 tabs 11/07/24 hydrocortisone 2.5 % topical cream 1 appl PA BID-QID PRN hemorrhoids 11/07/24 with perineal applicator #30 grams hydromorphone 2 mg tablet 2 mg PO Q6H PRN pain (scale score 11/07/24 (Dilaudid) 7-10) #20 tabs lorazepam 0.5 mg tablet (Ativan) 0.5 mg PO BID PRN anxiety #20 tabs 11/07/24 Allergies Allergy/AdvReac Type Severity Reaction Status Date / Time hydrocodone (From VICODIN) Allergy Mild HIVES Verified 11/07/24 10:23 oxycodone (From PERCOCET) Allergy Mild HIVES Verified 11/07/24 10:23 azithromycin (AZITHROMYCIN) Allergy Unknown NAUSEA & Verified 11/07/24 10:23 VOMITING erythromycin base (From Allergy Unknown NAUSEA & Verified 11/07/24 10:23 ERYTHROCIN) VOMITING metformin AdvReac Mild Gastrointestinal Uncoded 11/07/24 10:23 Upset Review of Systems Review of Systems: as per HPI, full review of systems performed and negative but for the above mentioned pertinent positives and negatives. [facility] Past Medical History Attestation statement: The following information was validated with the patient. [facility] Narrative: DM, HTN, CAD, IGNACIO, anemia, JONATHON, MDD, Bipolar disorder, FM Medical History Postoperative pain Acute respiratory disease Nausea with vomiting, unspecified Nephrolithiasis Periodic limb movements of sleep Anemia Asthma Sleep apnea Migraine Sinusitis Breast pain, left Hypertension Sleep apnea Bipolar 1 disorder Depression Anxiety delivery delivered Diabetes Sciatica Kidney infection Kidney stones HTN (hypertension) Fibromyalgia Lupus Surgical History S/P hemorrhoidectomy (10/28/24) Hx of colonoscopy History of esophagogastroduodenoscopy (EGD) H/O section H/O: hysterectomy Family History Family History Maternal Grandmother HTN (hypertension) Diabetes Cancer Mother Ovarian cancer Other FH: mental illness Substance use Social History Social History Household Members: Spouse Housing: Apartment Are you a primary rn progressive care to a significant other at home: No Do you presently have visiting nurse or other home services: No Alcohol intake: current Alcohol intake frequency: holidays/special occasions only Alcohol type: hard liquor Patient Tobacco Use Status: Former Tobacco user Tobacco use type: Smokeless Tobacco e-Cigarette/Vaping Use: Currently Using Substance Use Type: Marijuana Advance Directives Date on File: 02/02/24 service: No Current occupational status: employed 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 SKIN: Normal skin color for ethnicity, warm, dry, intact, no rashes noted. HEENT: Normocephalic, atraumatic, no stridor, posterior oropharynx nonerythematous, dentition intact, EOMI. NECK: Soft, supple, full ROM, midline structures nontender, no step-offs, no deformities, no lymphadenopathy. CHEST: Heart regular rhythm, no murmurs, symmetric chest rise and fall, no crepitus. PULMONARY: Clear to auscultation bilaterally, no labored breathing, no wheezes/rhales/ rhonchi. ABDOMINAL: Soft, nondistended, nontender, positive bowel sounds in all quadrants. : nonerythematous perineum, several external hemorrhoids noted, TTP no thrombosis, no lesions, no drainage, ALONA deferred. MUSCULOSKELETAL: Normal tone, full range of motion, no deformities, no peripheral edema. NEURO: Alert and oriented x3, CN II through XII intact, equal strength and sensation bilateral upper and lower extremities, no focal neurologic deficits. PSYCHIATRIC: Anxious affect, tearful, fluid speech, good eye contact and appropriate demeanor. Vital Signs: Vital Signs - 24 hr 11/03/24 19:02 11/03/24 21:07 11/04/24 01:12 Temperature 98.1 F 97.7 F 98.1 F Pulse Rate 90 80 66 Respiratory Rate 24 H 18 Blood Pressure 196/104 H 113/75 105/51 L Pulse Oximetry 96 100 95 Oxygen Delivery Method Room Air Room Air Room Air 11/04/24 06:20 Temperature 98.0 F Pulse Rate 65 Respiratory Rate 16 Blood Pressure 117/77 Pulse Oximetry 95 Oxygen Delivery Method Room Air BMI result Body Mass Index 37.2 Medications Administered Discontinued Medications Generic Name Dose Route Start Last Admin Trade Name Freq PRN Reason Stop Dose Admin Diphenhydramine HCl 25 mg 11/03/24 22:22 11/03/24 22:50 Diphenhydramine Hcl 50 Mg/Ml Vial IVPUSH 11/03/24 22:23 25 mg ONCE ONE Administration Droperidol 1.25 mg 11/03/24 22:22 11/03/24 22:51 Droperidol 5 Mg/2 Ml Vial IVPUSH 11/03/24 22:23 1.25 mg ONCE ONE Administration Hydromorphone HCl 1 mg 11/03/24 22:22 11/03/24 22:50 Hydromorphone Hcl 1 Mg/Ml Syringe IVPUSH 11/03/24 22:23 1 mg ONCE ONE Administration Protocol Lidocaine HCl 10 ml 11/03/24 22:27 11/04/24 03:36 Lidocaine Hcl 2 % Urojet 10 Ml Jel.Pf.Mario TOPICAL 11/03/24 22:28 Not Given ONCE ONE Medical Decision Making Medical Decision Making [facility] Narrative: 44 year old female with extensive medical history presents with contineud rectal pain after hemorrhoidectomy 1 week ago. Differential diagnosis includes post op pain, poor coping mechanisms, hemorrhoidal bleeding, lower GIB, abscess or infection, among others. She has already been hospitalized for this pain for 4 days and is having a fairly normal post op course despite poor pain control. She has no evidence of infection on exam or by labs. After treating her pain with adjunect pain medications including droperidol, the patient has slept and is now comfortable with discharged. Case discussed with general surgeon [email or web address] application developer, Dr. Ramirez, who agrees with plan for pain control and discharge if possible. She should call the office today to be seen in the afternoon. Using shared decision making, plan for discharge home to follow-up with primary care and/or specialist.? Patient understands and agrees with plan for discharge.? Discharged home in stable condition. Differential Diagnosis Differential Diagnoses: The differential diagnosis associated with the presentation includes (as above) Admission/Observation Consideration of admission/observation: Escalation of care including admission/observation considered Consult Healthcare Provider Management of the patient was discussed with: Systems Auditor (General surgery, Dr. Ramirez) Lab Data [facility] Lab Attestation statement: I reviewed the patient's lab results. 11/04/24 00:20 11/04/24 00:20 Labs: Lab Results 11/04/24 Range/Units 00:20 WBC 10.2 (4.8-10.8) X10*3/uL RBC 4.21 (4.20-5.50) X10*6/uL Hgb 12.8 (12.0-16.0) g/dl Hct 36.2 L (37.0-47.0) % MCV 86.0 (80.0-98.0) fL MCH 30.4 (27.0-33.0) pg MCHC 35.4 H (31.0-35.0) g/dl RDW 13.1 (11.0-16.0) % Plt Count 246 (160-400) X10*3/uL MPV 9.3 L (9.4-12.3) fL Immature Gran % (Auto) 0.5 H (0.0-0.4) % Neut % (Auto) 65.2 (45-73) % Lymph % (Auto) 23.3 (20-40) % Mora % (Auto) 8.5 (2-11) % Eos % (Auto) 2.3 (0-4) % Baso % (Auto) 0.2 (0-2) % Lymph # (Auto) 2.4 (1.2-4.9) X10*3/uL Mora # (Auto) 0.9 (0.1-1.2) X10*3/uL Eos # (Auto) 0.2 (0.0-0.4) X10*3/uL Baso # (Auto) 0.0 (0.0-0.2) X10*3/uL Abs Immat Gran (auto) 0.05 H (0.00-0.03) X10*3/uL Absolute Neuts (auto) 6.6 (2.0-8.3) x10*3/uL Absolute Nucleated RBC 0.000 (0.0-0.012) X10*3/uL Nucleated RBC % (auto) 0.0 (0.0-0.2) /100WBC Sodium 139 (135-145) mmol/L Potassium 4.0 (3.3-5.1) mmol/L Chloride 106 (96-108) mmol/L Carbon Dioxide 26 (22-29) mmol/L Anion Gap 11 L (12-20) BUN 12 (9-16) mg/dL Creatinine 0.61 (0.5-1.4) mg/dL Estim Creat Clear Calc 130.5 Estimated GFR > 60 Random Glucose 164 H (60-115) mg/dL Calcium 8.2 L (8.4-10.2) mg/dL Independent Historian Clinical information obtained from an independent historian. History obtained from or confirmed by: Spouse and EMS External Record Review External record reviewed: Office record, Prior outpatient labs and Prior outpatient radiology Chronic Conditions Patient?s care impacted by: Diabetes and Hypertension Discharge Plan Discharge Clinical Impression: Anal or rectal pain, Post-operative pain Hemorrhoids Qualifiers: Hemorrhoid type: unspecified Qualified Code(s): K64.9 - Unspecified hemorrhoids Patient Disposition: Home, Self-Care Instructions: Hemorrhoidectomy (DC), Pain Management After Surgery (DC) Additional Instructions: Follow-up at your surgeon's office today. Call the office for an appointment later this afternoon. Return to the emergency department as needed for any new or worsening symptoms. Continue to do your Sitz baths as well as take your lidocaine and pain medications as prescribed. Prescriptions: No Action sumatriptan succinate [Imitrex] 100 mg tablet 100 mg PO DAILY PRN (Reason: migraine headache) Qty: 7 4RF Rx Instructions: 100 mg orally PRN; gabapentin 100 mg capsule 100 - 400 mg PO BEDTIME 30 Days Qty: 90 3RF (DME) blood-glucose meter [Zattikka Swifton Lite] Kit See Rx Instructions .ROUTE .MEDSUPPLY Qty: 1 0RF Rx Instructions: As directed cyclobenzaprine 10 mg tablet 10 mg PO TID PRN (Reason: muscle spasm) Qty: 20 0RF acetaminophen [Tylenol Extra Strength] 500 mg tablet 1,000 mg PO Q8H PRN (Reason: back pain) Qty: 60 0RF meloxicam 15 mg tablet 15 mg PO DAILY Linzess 290 mcg capsule 290 mcg PO DAILY omeprazole 40 mg capsule,delayed release(DR/EC) 40 mg PO BID@0630,1630 hydromorphone [Dilaudid] 4 mg tablet 4 mg PO Q6H PRN (Reason: pain (scale score 7-10)) Qty: 20 0RF Rx Instructions: Partial Fill upon patient request. bupropion HCl 300 mg tablet extended release 24 hr 300 mg PO DAILY albuterol sulfate 90 mcg/actuation HFA aerosol inhaler 2 puff inhalation Q4-6H PRN (Reason: shortness of breath or wheezing) Qty: 1 3RF ondansetron 4 mg tablet,disintegrating 4 mg PO Q8H PRN (Reason: nausea and vomiting) 5 Days Qty: 15 12RF docusate sodium [Colace] 100 mg capsule 100 mg PO BID 30 Days Qty: 60 3RF lidocaine 5 % adhesive patch,medicated 1 patch topical DAILY PRN (Reason: Pain) Qty: 30 0RF Rx Instructions: leave on most painful area for up to 12 hrs cholecalciferol (vitamin D3) 50 mcg (2,000 unit) capsule 50 mcg PO DAILY Qty: 90 2RF amitriptyline 50 mg tablet 50 mg PO BEDTIME Qty: 90 0RF (DME) FreeStyle Lite Strips Strip See Rx Instructions .ROUTE .MEDSUPPLY Qty: 100 12RF Rx Instructions: twice per day atorvastatin 10 mg tablet 10 mg PO BEDTIME Qty: 90 0RF lisinopril 5 mg tablet 5 mg PO DAILY Qty: 90 0RF metoprolol tartrate 25 mg tablet 25 mg PO DAILY Qty: 90 0RF hydrocortisone 2.5 % cream with perineal applicator 1 appl PA BID-QID PRN (Reason: hemorrhoids) Qty: 30 0RF lorazepam [Ativan] 0.5 mg tablet 0.5 mg PO BID PRN (Reason: anxiety) Qty: 20 0RF hydromorphone [Dilaudid] 2 mg tablet 2 mg PO Q6H PRN (Reason: pain (scale score 7-10)) Qty: 20 0RF Rx Instructions: Partial Fill upon patient request. doxycycline hyclate 100 mg tablet 100 mg PO BID Qty: 20 0RF Interventions: ED Discharge Assessment Last Done: 11/04/24 07:31 Discharge Date/Time: 11/04/24 07:51 Print Language: Upper Sorbian
[2024-11-04 00:25] LABS: MANUAL DIFF FLAG NO
[2024-11-04 00:27] LABS: Hematocrit 36.2 % (37.0-47.0); Hemoglobin 12.8 g/dl (12.0-16.0); Imm Gran Abs Auto 0.05 X10*3/uL (0.00-0.03); Imm Gran Pct Auto 0.5 % (0.0-0.4); Lymphocytes Absolute Auto 2.4 X10*3/uL (1.2-4.9); Mean Corpuscular HGB Conc 35.4 g/dl (31.0-35.0); Mean Corpuscular Hemoglobin 30.4 pg (27.0-33.0); Mean Corpuscular Volume 86.0 fL (80.0-98.0); NRBC Abs Auto 0.000 X10*3/uL (0.0-0.012); NRBC Pct Auto 0.0 /100WBC (0.0-0.2); Platelet Count 246 X10*3/uL (160-400); Red Blood Count 4.21 X10*6/uL (4.20-5.50); White Blood Count 10.2 X10*3/uL (4.8-10.8)
[2024-11-04 00:37] LABS: Anion Gap 11 (12-20); Blood Urea Nitrogen 12 mg/dL (9-16); Calcium 8.2 mg/dL (8.4-10.2); Carbon Dioxide 26 mmol/L (22-29); Chloride 106 mmol/L (96-108); Creatinine Clr Calc Pharmacy 130.5; Estimated Glomerular Filt Rate > 60; Potassium 4.0 mmol/L (3.3-5.1); Sodium 139 mmol/L (135-145)
[2024-11-04 01:12] VITALS: BP 105/51; PULSE 66; RESP 18; TEMP 36.7; O2SAT 95
[2024-11-04 06:20] VITALS: BP 117/77; PULSE 65; RESP 16; TEMP 36.7; O2SAT 95
[2024-11-04 07:31] VITALS: BP 121/82; PULSE 63; RESP 16; TEMP 36.4; O2SAT 97
== END 2024-11-04 07:51 | disposition home or self-care (01) ==
PROVIDERS: Emergency Provider Emergency Medicine; PCP Nurse Practitioner Family
DX: K64.9 Unspecified hemorrhoids (principal); K62.5 Hemorrhage of anus and rectum; K62.89 Other specified diseases of anus and rectum; I25.10 Atherosclerotic heart disease of native coronary artery without angina pectoris; Z79.899 Other long term (current) drug therapy; Z87.891 Personal history of nicotine dependence
CPT/HCPCS: 36415; 80048; 85025; 96374; 96375; 99284; J1171; J1200; J1790

== ENCOUNTER 2024-11-04 08:44 | Emergency (ER) | payer OTHER, SELFPAY ==
[2024-11-04 08:54] VITALS: BP 230/170; PULSE 140; RESP 24; TEMP 36.6; O2SAT 98; BMI 37.2
--- OUTSIDE RECORDS SUMMARY | 2024-11-04 13:23 | XMS_ITS | Encounter Summary ---
Author Organization [facility] Address [address] [place] [phone] Phone Care Team Providers Care Data Capture Specialist Name Role Phone Minerva Ferrara BREAD PANNER Primary Care Provider Encounter Details Date Type Department Care Team ([facility] st Contact Info) Description 08/27/2024 Telephone [facility] Pulmonary, Allergy and Critical Care Medicine [address] [facility] [address] [place], [place] [id number] [email or web address] Social History Tobacco Use Types Packs/Day Years Used Date Smoking Tobacco: Every Day Smokeless Tobacco: Never Alcohol Use Standard Drinks/Week Comments Not Currently 0 (1 standard drink = 0.6 oz pur e alcohol) Education Answer Date Recorded Are you interested in more education? Not on pipe e 08/06/2022 Are you concerned about learning? Not on file 08/06/2022 No 08/06/2022 No 08/06/2022 Digital Access Answer Date Recorded No 09/06/2022 No 09/06/2022 Reliable internet access at home? Not on file 09/06/2022 Device with a working camera? Not on file Comments Unknown Sex and Gender Information Value Date Recorded Sex Assigned at Not on file Legal Sex Female 3:04 PM EDT Gender Identity Female 09/26/2023 8:54 AM EDT Sexual Orientation Pansexual 09/26/2023 8: 54 AM EDT documented as of this encounter Plan of Treatment Not on file documented as of this encounter Visit Diagnoses Not on filedocumented in this encounter Care Teams Data Capture Specialist Relationship Specialty Start Date End Date Minerva Ferrara NP [address] [place] [address] [place] [address] [email or web address] PCP - General Nurse Practitioner 09/26/23 documented as of this encounter Additional Source Comments The information contained in this document represents components of the legal health record. It is not the complete legal health record.[facility]
== END 2024-11-04 12:38 | disposition left against medical advice (07) ==
PROVIDERS: Emergency Provider Emergency Medicine; PCP Nurse Practitioner Family
DX: R52 Pain, unspecified (principal); Z53.21 Procedure and treatment not carried out due to patient leaving prior to being seen by health care provider
CPT/HCPCS: 99281

== ENCOUNTER 2024-11-04 16:33 | Outpatient (AMB) | payer OTHER, SELFPAY ==
--- NOTE | 2024-11-04 16:38 | A.OFFPC_ITS ---
Intake Visit Reasons: telehealth ok admitted and d/c from [place] Allergies hydrocodone (From VICODIN) Allergy (Mild, Verified 11/04/24 08:56) HIVES oxycodone (From PERCOCET) Allergy (Mild, Verified 11/04/24 08:56) HIVES azithromycin (AZITHROMYCIN) Allergy (Unknown, Verified 11/04/24 08:56) NAUSEA & VOMITING erythromycin base (From ERYTHROCIN) Allergy (Unknown, Verified 11/04/24 08:56) NAUSEA & VOMITING metformin Adverse Reaction (Mild, Uncoded 11/04/24 08:56) Gastrointestinal Upset Medication List - Last Reconciled 11/04/24 by Minerva Zuleta, ENVIRONMENTAL SERVICES ATTENDANT- acetaminophen (Tylenol Extra Strength) 1,000 mg (2 x 500 mg) PO Q8H PRN albuterol sulfate 90 mcg/actuation 2 puffs inhalation Q4-6H PRN atorvastatin 10 mg PO BEDTIME blood sugar diagnostic (FreeStyle Lite Strips) twice per day blood-glucose meter (FreeStyle [place] Lite kit) As directed bupropion HCl XL 300 mg PO DAILY cholecalciferol (vitamin D3) 50 mcg PO DAILY cyclobenzaprine 10 mg PO TID PRN docusate sodium (Colace) 100 mg PO BID 30 days gabapentin 100 - 400 mg (1 - 4 x 100 mg) PO BEDTIME 30 days hydromorphone (Dilaudid) 4 mg PO Q6H PRN hydromorphone (Dilaudid) 2 mg PO Q6H PRN lidocaine 5% 1 patch topical DAILY PRN linaclotide (Linzess) 290 mcg PO DAILY lisinopril 5 mg PO DAILY meloxicam 15 mg PO DAILY metoprolol tartrate 25 mg PO DAILY omeprazole 40 mg PO BID@0630,1630 ondansetron 4 mg PO Q8H PRN 5 days sumatriptan succinate (Imitrex) 100 mg PO DAILY PRN Tobacco use date assessed: 09/04/24 Dental Screening Dental Screen Date: 09/04/24 HPI HPI Comments 2 History of Present Illness0 Details Here today for a Transitional Care Management Visit Discharge summary reviewed. Admission Date: 10/28/24 Discharge Date: 10/31/24 Hospital: [facility] Went back to ED 11/03/24 for the same thing x 2 Date of interactive contact with Nurse Navigator: as documented in chart Pending diagnostic tests/treatments: none Pending consults: none DME: none PT/OT/LIGHTING SPECIALIST: none Home Health Aide/CUSTOMER DEVELOPMENT REPRESENTATIVE: none Community Resources: none Referrals: no new referrals Medications reconciled & updated. During todays TCM visit, the d/c summary was reviewed, along with the need for or follow-up on pending diagnostic tests and treatments, as necessary interaction with other health healthcare economics consultant who will assume or reassume care of the beneficiary?s system-specific problems was done or is being worked on, education was provided to the beneficiary, family, guardian, and/or caregiver, referrals to establish or re-establish and arrange needed community resources we completed, assistance in scheduling required follow-up with community providers and services & finally updated medication list given to patient/caregiver. History of Present Illness - The patient is a 44-year-old female pr esenting with severe post-operative pain management following hemorrhoidectomy. - Recent hemorrhoidectomy led to severe pain and bowel movement issues. - Post-op hospital stay of 4 days for pa in and defecation difficulty. - Subsequent emergency visit on November 03t h x2 for increased pain and bleeding. - Pain described as extreme and severe, interfering with daily activities and rest. - Ongoing rectal bleeding, diarrhea, and involuntary bowel oozing. - Difficulty urinating due to pain upon straining. - Persistent insomnia due to patient?s p ain. - Concern over pain medication sufficien cy due to limited supply and accidental loss. - reports getting Dilaudid 4mg, spilled 8 tabs into juice and she has been taking 2mg x 2 along w/ remains 4mg tabs and will be out as of tomorrow. Review of Systems - Gastrointestinal: Reports severe pain, rectal bleeding, diarrhea, involuntary bowel oozing. - Genitourinary: Reports inability to ur inate comfortably, pain associated with bearing down. - Neurological: Reports insomnia and ext joana sleep disturbance. - Musculoskeletal: Reports exacerbated b ack pain; difficulty with sitting and laying down. Assessment and Plan 1. Post-Hemorrhoidectomy Pain - Advise use of pain medications. No ref ill given today. - Recommend sitz baths, ice packs, lidoc kalpesh cream along w/ all other interventions recommended by Gen Surg team - Recommend stool softeners, avoid diure tics. - Will add Amitriptyline 50mg QHS to see if this helps w/ rectal pain/spasm and insomnia. - follow up with surgeon as scheduled Telehealth Attestation The information documented here accurately reflects the encounter by phone encounter. The patient has been explained that this is an interactive (audio/video) telehealth encounter and what that consists of. The patient understands and wishes to proceed. [employer] platform was used. Total time spent caring for the patient today was 45 minutes. This includes time spent before the visit reviewing the chart, time spent during the visit, and time spent after the visit on documentation, reviewing laboratory results, diagnostic imaging, medications, performing a medically necessary evaluation, counseling on diagnoses, care coordination, ordering appropriate tests, ordering appropriate medications, review of tests performed by other providers, reporting test results with the patient, communication with other healthcare providers. [facility] Medical History (Updated 11/04/24 @ 16:50 by Minerva Zuleta, [facility]) Acute respiratory disease Anemia Anxiety Asthma Bipolar 1 disorder Breast pain, left delivery delivered Depression Diabetes Fibromyalgia HTN (hypertension) Hypertension Kidney infection Kidney stones Lupus Migraine Nausea with vomiting, unspecified Nephrolithiasis Periodic limb movements of sleep Postoperative pain Sciatica Sinusitis Sleep apnea Sleep apnea Surgical History (Updated 11/04/24 @ 16:[address] [facility]) H/O section H/O: hysterectomy History of esophagogastroduodenoscopy (EGD) Hx of colonoscopy S/P hemorrhoidectomy (10/28/24) Family History Maternal Grandmother HTN (hypertension) Diabetes Cancer Mother Ovarian cancer Other FH: mental illness Substance use Social History Household Members: Spouse Housing: Apartment Are you a primary manager critical care to a significant other at home: No Do you presently have visiting nurse or other home services: No Alcohol intake: current Alcohol intake frequency: holidays/special occasions only Alcohol type: hard liquor Patient Tobacco Use Status: Former Tobacco user Tobacco use type: Smokeless Tobacco e-Cigarette/Vaping Use: Currently Using Substance Use Type: Marijuana Advance Directives Date on File: 02/02/24 service: No Current occupational status: employed 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 Rob Parry, Tana Rowley, Gen Mcdonald and colleagues, with an educational ezra from [employer]. Physical exam (Primary Care) Tobacco/Smoking Status: Tobacco use Status Tobacco use date assessed 09/04/24 09/04/24 12:33 Patient Tobacco Use Status Former Tobacco user 10/31/24 11:08 Tobacco use type Smokeless Tobacco 10/28/24 06:56 e-Cigarette/Vaping Use Currently Using 09/04/24 12:33 Thrive Assessment: Date of Thrive Assessment Date Thrive assessed 10/29/24 10/29/24 13:58 Telehealth Telehealth Telehealth Platform: [facility] Location of provider rendering services: practice address Location of patient: address on file Patient Identification confirmed using: Name, : Yes Telehealth method: voice only Patient verbally consented to treatment: Yes Patient verbally consented to billing insurance company: Yes Patient informed of any privacy concerns related to visit: Yes Minutes spent on Phone/Video with Pt.: 20 Results Reviewed Results Reviewed: Coding Level of Care Code TCM High MDM <= 14 days Complex EM visit Add On G2211 Diagnoses Hospital discharge follow-up Z09 Post-operative pain G89.18 S/P hemorrhoidectomy Z98.890; Z87.19 Assessment & Plan Assessment & Plan (1) Hospital discharge follow-up: Code(s): Z09 - Encounter for follow-up examination after completed treatment for conditions other than malignant neoplasm (2) Post-operative pain: Code(s): G89.18 - Other acute postprocedural pain Category: Medical (3) S/P hemorrhoidectomy: Onset Date: 10/28/24 Code(s): Z98.890 - Other specified postprocedural states; Z87.19 - Personal history of other diseases of the digestive system Category: Surgical Plan . Medications: New 2 amitriptyline 50 mg PO BEDTIME 90 tabs 0RF
== END 2024-11-04 17:05 | disposition home or self-care (01) ==
LOC: HO.HMCFM 16:33
PROVIDERS: PCP Nurse Practitioner Family; Visit Provider Nurse Practitioner Family
DX: G89.18 Other acute postprocedural pain (principal); Z09 Encounter for follow-up examination after completed treatment for conditions other than malignant neoplasm; Z98.890 Other specified postprocedural states; Z87.19 Personal history of other diseases of the digestive system

== ENCOUNTER 2024-11-07 10:05 | Outpatient (AMB) | payer OTHER, SELFPAY ==
--- NOTE | 2024-11-07 10:13 | A.OFFVIS_ITS ---
Vital Signs 11/07/24 10:27 Height 5 ft 3 in Weight 207 lb 4 oz BMI 36.7 BP 169/94 H Blood Pressure Location Lt brachial Position Sitting Pulse 101 H Intake Visit Reasons: S/P hemorrhoidectomy Intake Note: Patient is seen in office for post op assessment post hemorrhoidectomy. Patient c/o: increase pain, constipation, taking Linzess, Miralax, Milk of Magnesia and Colace daily and still has constipation surgery: 10/28/24 Cotton Buyer Required: No Accompanied by: Family/Other Allergies hydrocodone (From VICODIN) Allergy (Mild, Verified 11/07/24 10:23) HIVES oxycodone (From PERCOCET) Allergy (Mild, Verified 11/07/24 10:23) HIVES azithromycin (AZITHROMYCIN) Allergy (Unknown, Verified 11/07/24 10:23) NAUSEA & VOMITING erythromycin base (From ERYTHROCIN) Allergy (Unknown, Verified 11/07/24 10:23) NAUSEA & VOMITING metformin Adverse Reaction (Mild, Uncoded 11/07/24 10:23) Gastrointestinal Upset HPI Comments Details: 44-year-old female patient status post hemorrhoidectomy performed on 10/28/2024. She subsequently returned to the hospital with increased pain and was admitted for several days and subsequently discharged on 10/31/2024. She returned to the ED on 11/03/2024 due to the increased anal rectal pain. She was instructed to returned to the office for follow-up examination. She denies any fever or chills but continues to have difficulty with her bowels. She has been taking milk of magnesia (reported every hour), Dulcolax, and MiraLax for her bowels without much improvement. She denies any fever or chills. There has been some bloody discharge noted when she does have a bowel movement. The bowel movements do seem to increase the pain. She reports using the Sitz baths daily. ON LICENSE OF [facility] Medical History Postoperative pain Acute respiratory disease Nausea with vomiting, unspecified Nephrolithiasis Periodic limb movements of sleep Anemia Asthma Sleep apnea Migraine Sinusitis Breast pain, left Hypertension Sleep apnea Bipolar 1 disorder Depression Anxiety delivery delivered Diabetes Sciatica Kidney infection Kidney stones HTN (hypertension) Fibromyalgia Lupus Surgical History S/P hemorrhoidectomy (10/28/24) Hx of colonoscopy History of esophagogastroduodenoscopy (EGD) H/O section H/O: hysterectomy Family History Maternal Grandmother HTN (hypertension) Diabetes Cancer Mother Ovarian cancer Other FH: mental illness Substance use Social History Household Members: Spouse Housing: Apartment Are you a primary senior care assistant to a significant other at home: No Do you presently have visiting nurse or other home services: No Alcohol intake: current Alcohol intake frequency: holidays/special occasions only Alcohol type: hard liquor Patient Tobacco Use Status: Former Tobacco user Tobacco use type: Smokeless Tobacco e-Cigarette/Vaping Use: Currently Using Substance Use Type: Marijuana Advance Directives Date on File: 02/02/24 service: No Current occupational status: employed 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 Minimal inflammation as expected. No perirectal abscess appreciated. Suture line clean and intact. Extrem Other: No edema Assessment & Plan Assessment & Plan (1) Post-operative pain: Code(s): G89.18 - Other acute postprocedural pain Category: Medical Plan Status post hemorrhoidectomy on 10/28/2024. Patient continues to report incisional pain and has required high doses of pain medication during her recent hospitalization. She now complains of constipation which clearly is related to her narcotic use. She was encouraged to limit the narcotic use which is causing constipation. I also recommended applying hydrocortisone cream to decrease the swelling and starting antibiotics for the surrounding inflammation. She will return in 1 week for repeat examination. Medications: New lorazepam (Ativan) 0.5 mg PO BID PRN 20 tabs 0RF anxiety G89.18 - Other acute postprocedural pain hydrocortisone 2.5% 1 appl MO BID-QID PRN 30 grams 0RF hemorrhoids doxycycline hyclate 100 mg PO BID 20 tabs 0RF Refilled hydromorphone (Dilaudid) Partial Fill upon patient request. 2 mg PO Q6H PRN 20 tabs 0RF pain (scale score 7-10) Z87.19 - Personal history of other diseases of the digestive system, Z98.890 - Other specified postprocedural states Coding Level of Care Code Global (69426) Diagnoses Post-operative pain G89.18
[2024-11-07 10:27] VITALS: BP 169/94; PULSE 101; BMI 36.7
--- OUTSIDE RECORDS SUMMARY | 2024-11-07 10:48 | XMS_ITS | Encounter Summary ---
Author Organization [facility] Address [address] [place] [id number] Phone Care Team Providers Care Spaghetti Machine Operator Name Role Phone Minerva Ferrara AS400 OPERATOR Primary Care Provider Encounter Details Date Type Department Care Team ([facility] st Contact Info) Description 08/27/2024 Telephone [facility] Pulmonary, Allergy and Critical Care Medicine [address] [facility] [place], [place] [id number] Cathy [email or web address] Social History Tobacco Use Types Packs/Day Years [...] on filedocumented in this encounter Care Teams Spaghetti Machine Operator Relationship Specialty Start Date End Date Minerva Ferrara NP [address] [place] [address] [place] [address] [email or web address] PCP - General Nurse Practitioner 09/26/23 documented as of this encounter Additional Source Comments The information contained in this document represents components of the legal health record. It is not the complete legal health record.[facility]
== END 2024-11-07 10:39 | disposition home or self-care (01) ==
LOC: HO.HGS 10:06
PROVIDERS: PCP Nurse Practitioner Family; Visit Provider Surgery
DX: G89.18 Other acute postprocedural pain (principal)
CPT/HCPCS: 99024

== ENCOUNTER → 2024-11-07 10:05 | Outpatient (BNVA) | payer OTHER, SELFPAY | PROVIDERS: PCP Nurse Practitioner Family; Visit Provider Surgery | DX: G89.18 Other acute postprocedural pain (principal) | CPT/HCPCS: 99212 ==

== ENCOUNTER 2024-11-14 10:35 | Outpatient (AMB) | payer OTHER, SELFPAY ==
--- NOTE | 2024-11-14 10:38 | A.OFFVIS_ITS ---
Vital Signs 11/14/24 10:47 Height 5 ft 3 in Weight 209 lb 7.026 oz BMI 37.1 Intake Visit Reasons: S/P hemorrhoidectomy Intake Note: Patient is seen in office for follow up visit, post hemorrhoids. Pt c/o:admits to constipation for the past 4 days finally went this morning but feels she has not emptied E Commerce Manager Required: No Accompanied by: Self / Same As Patient Allergies hydrocodone (From VICODIN) Allergy (Mild, Verified 11/14/24 10:47) HIVES oxycodone (From PERCOCET) Allergy (Mild, Verified 11/14/24 10:47) HIVES azithromycin (AZITHROMYCIN) Allergy (Unknown, Verified 11/14/24 10:47) NAUSEA & VOMITING erythromycin base (From ERYTHROCIN) Allergy (Unknown, Verified 11/14/24 10:47) NAUSEA & VOMITING metformin Adverse Reaction (Mild, Uncoded 11/14/24 10:47) Gastrointestinal Upset HPI Comments Details: Patient returns for wound check. She continues to have burning pain from the hemorrhoids. She is taking multiple medications including stool softeners, milk of magnesia and Linzess for her bowels. She had a bowel movement today which was soft (mud pie). She is using the hydrocortisone cream which he feels is helping. The lidocaine does burn. She has skin irritation involving her vagina and perianal skin. [facility] Medical History Postoperative pain Acute respiratory disease Nausea with vomiting, unspecified Nephrolithiasis Periodic limb movements of sleep Anemia Asthma Sleep apnea Migraine Sinusitis Breast pain, left Hypertension Sleep apnea Bipolar 1 disorder Depression Anxiety delivery delivered Diabetes Sciatica Kidney infection Kidney stones HTN (hypertension) Fibromyalgia Lupus Surgical History S/P hemorrhoidectomy (10/28/24) Hx of colonoscopy History of esophagogastroduodenoscopy (EGD) H/O section H/O: hysterectomy Family History Maternal Grandmother HTN (hypertension) Diabetes Cancer Mother Ovarian cancer Other FH: mental illness Substance use Social History Household Members: Spouse Housing: Apartment Are you a primary daycare provider to a significant other at home: No Do you presently have visiting nurse or other home services: No Alcohol intake: current Alcohol intake frequency: holidays/special occasions only Alcohol type: hard liquor Patient Tobacco Use Status: Former Tobacco user Tobacco use type: Smokeless Tobacco e-Cigarette/Vaping Use: Currently Using Substance Use Type: Marijuana Advance Directives Date on File: 02/02/24 service: No Current occupational status: employed 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 Wounds are completely healed with no ulceration or bleeding noted. Surrounding pruritus ani noted extending up to the vaginal skin Neuro General: patient oriented x3 Extrem Other: No edema Assessment & Plan Assessment & Plan (1) Bleeding hemorrhoids: Code(s): K64.9 - Unspecified hemorrhoids Category: Medical Plan 44-year-old female patient returning approximately 3 weeks post hemorrhoidectomy. Overall her wounds are healing nicely without evidence of infection. She does have surrounding skin irritation, pruritus ani from moisture. I recommended starting Calmoseptine and continuing the hydrocortisone on the inflamed skin. She will return in 2 weeks for follow-up examination. Medications: New menthol-zinc oxide 0.44-20.6 % (Calmoseptine) 1 appl topical QID PRN 113 grams 0RF skin irritation Refilled hydrocortisone 2.5% 1 appl IN BID-QID PRN 30 grams 0RF hemorrhoids Coding Level of Care Code Global (81999) Diagnoses Bleeding hemorrhoids K64.9
[2024-11-14 10:47] VITALS: BMI 37.1
--- OUTSIDE RECORDS SUMMARY | 2024-11-14 11:14 | XMS_ITS | Encounter Summary ---
Author Organization [facility] Address [address] [place] [phone] Phone Care Team Providers Care Emc Storage Architect Name Role Phone Minerva Ferrara MAINSPRING STRIP INSPECTOR Primary Care Provider Encounter Details Date Type Department Care Team ([facility] st Contact Info) Description 08/27/2024 Telephone [facility] Pulmonary, Allergy and Critical Care Medicine 10 [facility] [place], [place] [phone] Cathy [email or web address] Social History Tobacco Use Types Packs/Day Years [...] on filedocumented in this encounter Care Teams Emc Storage Architect Relationship Specialty Start Date End Date Minerva Ferrara NP [address] [place] [address] [place] [address] [email or web address] PCP - General Nurse Practitioner 09/26/23 documented as of this encounter Additional Source Comments The information contained in this document represents components of the legal health record. It is not the complete legal health record.[facility]
== END 2024-11-14 10:57 | disposition home or self-care (01) ==
LOC: HO.HGS 10:36
PROVIDERS: PCP Nurse Practitioner Family; Visit Provider Surgery
DX: K64.9 Unspecified hemorrhoids (principal)
CPT/HCPCS: 99024

== ENCOUNTER → 2024-11-14 10:35 | Outpatient (BNVA) | payer OTHER, SELFPAY | PROVIDERS: PCP Nurse Practitioner Family; Visit Provider Surgery | DX: K64.9 Unspecified hemorrhoids (principal); Z98.890 Other specified postprocedural states; L29.0 Pruritus ani | CPT/HCPCS: 99212 ==

== ENCOUNTER 2024-11-15 11:59 | Outpatient (AMB) | payer OTHER, SELFPAY ==
--- OUTSIDE RECORDS SUMMARY | 2024-11-15 12:00 | XMS_ITS | Encounter Summary ---
Author Organization [facility] Address [address] [place] [phone] Phone Care Team Providers Care Glue Drier Operator Name Role Phone Minerva Ferrara PHARMACY CLINICAL COORDINATOR Primary Care Provider Encounter Details Date Type Department Care Team ([facility] st Contact Info) Description 08/27/2024 Telephone [facility] Pulmonary, Allergy and Critical Care Medicine 10 [facility] [place], [place] [phone] Cathy [email or web address] Social History Tobacco Use Types Packs/Day Years [...] on filedocumented in this encounter Care Teams Glue Drier Operator Relationship Specialty Start Date End Date Minerva Ferrara NP [address] [place] [address] [place] [address] [email or web address] PCP - General Nurse Practitioner 09/26/23 documented as of this encounter Additional Source Comments The information contained in this document represents components of the legal health record. It is not the complete legal health record.[facility]
[2024-11-15 12:31] VITALS: BP 125/80; PULSE 77; TEMP 36.7; O2SAT 98; BMI 36.7
--- NOTE | 2024-11-15 12:31 | AM.OFFWIN_ITS ---
Intake Vital Signs 11/15/24 12:31 Height 5 ft 3 in Weight 207 lb 6 oz BMI 36.7 BP 125/80 Blood Pressure Location Rt brachial Position Sitting Pulse 77 Pulse Source Pulse Oximeter Temp 98.0 F Temp Source Oral Pulse Oximetry (%) 98 Oxygen Delivery Method Room Air Intake Visit Reasons: EP rash, bleeding, fevers after hemorrhoidectomy Patient Tobacco Use Status: Former Tobacco user Top Cutter Required: No Allergies hydrocodone (From VICODIN) Allergy (Mild, Verified 11/15/24 12:38) HIVES oxycodone (From PERCOCET) Allergy (Mild, Verified 11/15/24 12:38) HIVES azithromycin (AZITHROMYCIN) Allergy (Unknown, Verified 11/15/24 12:38) NAUSEA & VOMITING erythromycin base (From ERYTHROCIN) Allergy (Unknown, Verified 11/15/24 12:38) NAUSEA & VOMITING metformin Adverse Reaction (Mild, Uncoded 11/14/24 10:47) Gastrointestinal Upset Do you need a note to return to daycare/school/sports/work: No HPI HPI Comments History of Present Illness Details This is a 44-year-old female who had a hemorrhoidectomy performed on October 28 presenting for evaluation of dysuria and urinary frequency that she b markes she has had for the past 2 weeks. Patient had a postop visit yesterday with her surgeon, Dr. Garcia and there were no postoperative concerns. Patient denies having any fevers or chills but reports urinary frequency and dysuria. Additionally, she does report having continued postoperative pain. [facility] Medical History Postoperative pain Acute respiratory disease Nausea with vomiting, unspecified Nephrolithiasis Periodic limb movements of sleep Anemia Asthma Sleep apnea Migraine Sinusitis Breast pain, left Hypertension Sleep apnea Bipolar 1 disorder Depression Anxiety delivery delivered Diabetes Sciatica Kidney infection Kidney stones HTN (hypertension) Fibromyalgia Lupus Surgical History S/P hemorrhoidectomy (10/28/24) Hx of colonoscopy History of esophagogastroduodenoscopy (EGD) H/O section H/O: hysterectomy Family History Maternal Grandmother HTN (hypertension) Diabetes Cancer Mother Ovarian cancer Other FH: mental illness Substance use Social History Household Members: Spouse Housing: Apartment Are you a primary acute care nursing assistant to a significant other at home: No Do you presently have visiting nurse or other home services: No Alcohol intake: current Alcohol intake frequency: holidays/special occasions only Alcohol type: hard liquor Patient Tobacco Use Status: Former Tobacco user Tobacco use type: Smokeless Tobacco e-Cigarette/Vaping Use: Currently Using Substance Use Type: Marijuana Advance Directives Date on File: 02/02/24 service: No Current occupational status: employed 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 Current occupational exposures/hazards: No Cognitive needs: No Hearing needs: No Vision needs: Yes (glasses) Review of Systems Const All systems reviewed & are unremarkable except as noted in HPI and below Reports no additional complaints, Denies chills and Denies fever(s) GI Reports no additional complaints and Denies abdominal pain Reports no additional complaints, Reports urinary frequency, Denies genital pruritis, Denies genital lesions, Reports dysuria, Denies urinary incontinence, Reports urinary urgency, Denies vaginal discharge and Denies vaginal odor Musc Reports no additional complaints Skin/Breast Reports system reviewed and no additional complaints, except as documented Neuro Reports no additional complaints Psych Reports no additional complaints Endo Reports no additional complaints Aller/Immun Reports no additional complaints Physical Exam Vital Signs: Last Vital Signs Temp 98.0 F 11/15/24 12:31 Pulse 77 11/15/24 12:31 BP 125/80 11/15/24 12:31 Pulse Ox 98 11/15/24 12:31 Oxygen Delivery Method Room Air 11/15/24 12:31 BMI result Body Mass Index 36.7 Patient is afebrile. Const General: cooperative, healthy appearing, comfortable, no acute distress, well developed, alert, awake and Physically active; No ill appearing Nutritional Appearance: obese Orientation/consciousness: patient oriented x3 Limitations: no limitations GI Palpation (GI): Soft to palpation, nontender and no guarding Auscultation: normal bowel sounds Rectal Exam - Female: deferred General: Yes Bimanual renal exam normal bilaterally, No bladder normal to palpation (Suprapubic tenderness without guarding) and No CVA tenderness External Female Exam: normal external appearance, No erythema, No externally t romaine, No external swelling, No lesion and other (No erythema or vaginal discharge noted on external examination) Bimanual exam- vagina & uterus: No bladder normal to palpation (Suprapubic tenderness without guarding) Back/Spine/Pelvis Back: No CVA tenderness Skin General skin exam: no rashes or lesions noted Neuro General: patient oriented x3 Psych Appearance: grossly normal Mental Status: mental status grossly normal Insight: Fair insight present (Psych) Judgement: Fair judgement present (Psych) Results Reviewed Results Reviewed: Urinalysis reveals leukocytes and +1 glucose. Urine culture is pending. Assessment & Plan Assessment & Plan (1) Dysuria: Comment: Urinalysis is reviewed. Patient will be discharged home with Keflex. Urine culture is pending at this time. Code(s): R30.0 - Dysuria Plan: Keflex q.i.d. x7 days. Orders: Orders Urine Culture Today R30.0 - Dysuria Medications: New cephalexin 500 mg PO Q6H 28 caps 0RF Coding Level of Care Code Est Pt Level 3 (52601) Diagnoses Dysuria R30.0 Time Spent (min) 20
== END 2024-11-15 13:43 | disposition home or self-care (01) ==
PROVIDERS: PCP Nurse Practitioner Family; Visit Provider Physician Assistant
DX: R30.0 Dysuria (principal); Z13.9 Encounter for screening, unspecified

== ENCOUNTER 2024-11-15 11:59 | Outpatient (REF) | payer OTHER, SELFPAY | END 2024-11-15 12:00 | disposition home or self-care (01) | LOC: HO.LNP 11:59 | PROVIDERS: PCP Nurse Practitioner Family; Visit Provider Physician Assistant | DX: R30.0 Dysuria (principal); R35.0 Frequency of micturition; R21 Rash and other nonspecific skin eruption; Z13.9 Encounter for screening, unspecified; Z87.19 Personal history of other diseases of the digestive system | CPT/HCPCS: 81003; 87086; 99212 ==

== ENCOUNTER 2024-11-19 12:24 | Outpatient (REF) | payer OTHER, SELFPAY ==
--- NOTE | ~2024-11-19 | MM_ITS ---
EXAMINATIONS: 1. MM DIAGNOSTIC DIGITAL BREAST TOMOSYNTHESIS, BILATERAL 2. Targeted ultrasound of the right breast 3. Targeted ultrasound of the left breast CLINICAL INFORMATION: Bilateral bloody nipple discharge. COMPARISON: October 17, 2023 TECHNIQUE: Digital breast tomosynthesis is performed in both the craniocaudal and mediolateral oblique views along with computer-aided detection (CAD). Synthesized 2D images are generated from the tomosynthesis. FINDINGS: BREAST COMPOSITION: There are scattered areas of fibroglandular density (ACR BI-RADS breast composition Category b). RIGHT BREAST: No significant masses, suspicious calcifications or other abnormalities are seen. Targeted ultrasound of the right breast was performed in the subareolar/retroareolar region. Survey did not reveal dilated ducts or any suspicious sonographic findings. LEFT BREAST: No significant masses, suspicious calcifications or other abnormalities are seen. Targeted ultrasound of the left breast was performed in the subareolar/retroareolar region. Survey did not reveal dilated ducts or any suspicious sonographic findings. MM/MM tomosynthesis diagnostic BI IMPRESSION: BILATERAL BREASTS: Negative, no evidence of malignancy. However, given the history of bilateral bloody nipple discharge, surgical consult is recommended at this time. ASSESSMENT: BI-RADS 1 - Negative RECOMMENDATION: Surgical Consult Results were provided to the patient at time of visit by the technologist. This patient's information was entered into a reminder system with a target due date for their next mammogram. Electronically signed by: Josephine Merchant MD 11/19/2024 01:43 PM EDT
--- OUTSIDE RECORDS SUMMARY | 2024-11-19 13:12 | XMS_ITS | Encounter Summary ---
Author Organization [facility] Address [address] [place] [address] Phone Care Team Providers Care C.O.D. Audit Clerk Name Role Phone Minerva Ferrara PIPE ORGAN MECHANIC APPRENTICE Primary Care Provider Encounter Details Date Type Department Care Team ([facility] st Contact Info) Description 08/27/2024 Telephone [facility] Pulmonary, Allergy and Critical Care Medicine [address] [facility] [address] [place], [place] [id number] Cathy [email or web address] Social History Tobacco Use Types Packs/Day Years [...] on filedocumented in this encounter Care Teams C.O.D. Audit Clerk Relationship Specialty Start Date End Date Minerva Ferrara NP [address] [place] [address] [place] [address] [email or web address] PCP - General Nurse Practitioner 09/26/23 documented as of this encounter Additional Source Comments The information contained in this document represents components of the legal health record. It is not the complete legal health record.[facility]
== END 2024-11-19 12:25 | disposition home or self-care (01) ==
LOC: HO.MAMMO 12:24
PROVIDERS: PCP Nurse Practitioner Family; Visit Provider Surgery
DX: N64.3 Galactorrhea not associated with childbirth (principal); N64.52 Nipple discharge
CPT/HCPCS: 76642; 77062; 77066

== ENCOUNTER → 2024-11-19 13:00 | Outpatient (BNV) | payer OTHER, SELFPAY | PROVIDERS: PCP Nurse Practitioner Family; Visit Provider Radiology Body Imaging | DX: N64.52 Nipple discharge (principal) | CPT/HCPCS: 76642; 77062; 77066 ==

== ENCOUNTER 2024-12-03 10:20 | Outpatient (AMB) | payer OTHER, SELFPAY ==
--- NOTE | 2024-12-03 10:23 | MHC.OFFVIS ---
Vital Signs 12/03/24 10:28 Height 5 ft 3 in Weight 207 lb 3.752 oz BMI 36.7 BP 128/78 Blood Pressure Location Lt brachial Position Sitting Intake Visit Reasons: 2 weeks f/up post hemorrhoidectomy Intake Note: Patient is seen in office for 2 weeks follow up visit, post hemorrhoidectomy. Pt c/o: continued constipation, painful bowel movements, sometimes has no bm, next day might go up to 6 times, went to urgent care at [place] and was given antibiotics, all done with the antibiotics Embedded Software Manager Required: No Accompanied by: Self / Same As Patient Allergies hydrocodone (From VICODIN) Allergy (Mild, Verified 12/04/24 12:28) HIVES oxycodone (From PERCOCET) Allergy (Mild, Verified 12/04/24 12:28) HIVES azithromycin (AZITHROMYCIN) Allergy (Unknown, Verified 12/04/24 12:28) NAUSEA & VOMITING erythromycin base (From ERYTHROCIN) Allergy (Unknown, Verified 12/04/24 12:28) NAUSEA & VOMITING metformin Adverse Reaction (Mild, Uncoded 12/04/24 12:12) Gastrointestinal Upset HPI Comments Details: 44-year-old female patient returning following hemorrhoidectomy. She continues to have some bowel problems in his taking multiple medications including Linzess to help have a bowel movement. She denies any current bleeding or discharge. There is some pain after having a bowel movement. [facility] Medical History Postoperative pain Acute respiratory disease Nausea with vomiting, unspecified Nephrolithiasis Periodic limb movements of sleep Anemia Asthma Sleep apnea Migraine Sinusitis Breast pain, left Hypertension Sleep apnea Bipolar 1 disorder Depression Anxiety delivery delivered Diabetes Sciatica Kidney infection Kidney stones HTN (hypertension) Fibromyalgia Lupus Surgical History S/P hemorrhoidectomy (10/28/24) Hx of colonoscopy History of esophagogastroduodenoscopy (EGD) H/O section H/O: hysterectomy Family History Maternal Grandmother HTN (hypertension) Diabetes Cancer Mother Ovarian cancer Other FH: mental illness Substance use Social History Household Members: Spouse Housing: Apartment Are you a primary wound care nurse to a significant other at home: No Do you presently have visiting nurse or other home services: No Alcohol intake: current Alcohol intake frequency: holidays/special occasions only Alcohol type: hard liquor Patient Tobacco Use Status: Former Tobacco user Tobacco use type: Smokeless Tobacco e-Cigarette/Vaping Use: Currently Using Substance Use Type: Marijuana Advance Directives Date on File: 02/02/24 service: No Current occupational status: employed 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 Small sentinel pile is identified adjacent to the incision which is clean and intact. No evidence of infection or bleeding. Neuro General: patient oriented x3 Extrem General: Yes no clubbing, cyanosis or edema Assessment & Plan Assessment & Plan (1) Hemorrhoid: Code(s): K64.9 - Unspecified hemorrhoids Category: Medical Qualifiers: Hemorrhoid type: unspecified Qualified Code(s): K64.9 - Unspecified hemorrhoids Plan Overall patient is much improved. I recommend trialing hydrocortisone cream to the external swelling which is related to the underlying incision. She should continue the bowel preparations as prescribed elsewhere. She should follow up in our office as needed. Medications: Refilled cephalexin 500 mg PO Q6H 28 caps 0RF hydrocortisone 2.5% 1 appl GA BID-QID PRN 30 grams 0RF hemorrhoids Discontinued doxycycline hyclate Discontinued Reason: Patient Completed Course 100 mg PO BID 20 tabs 0RF hydromorphone Partial Fill upon patient request. Discontinued Reason: Patient Completed Course 2 mg PO Q6H PRN 20 tabs 0RF pain (scale score 7-10) Z87.19 - Personal history of other diseases of the digestive system, Z98.890 - Other specified postprocedural states Coding Level of Care Code Global (61662) Diagnoses Hemorrhoids, unspecified hemorrhoid type K64.9 Hemorrhoid type: unspecified
[2024-12-03 10:28] VITALS: BP 128/78; BMI 36.7
--- OUTSIDE RECORDS SUMMARY | 2024-12-03 11:01 | XMS_ITS | Encounter Summary ---
Author Organization [facility] Address [address] [place] [phone] Phone Care Team Providers Care Pipe Stem Sawyer Name Role Phone Minerva Ferrara DINING SERVICE SUPERVISOR Primary Care Provider Encounter Details Date Type Department Care Team ([facility] st Contact Info) Description 08/27/2024 Telephone [facility] Pulmonary, Allergy and Critical Care Medicine [address] [facility] [place], [place] [id number] Cathy [email or web address] Social History Tobacco Use Types Packs/Day Years [...] on filedocumented in this encounter Care Teams Pipe Stem Sawyer Relationship Specialty Start Date End Date Minerva Ferrara NP [address] [place] [address] [place] [address] [email or web address] PCP - General Nurse Practitioner 09/26/23 documented as of this encounter Additional Source Comments The information contained in this document represents components of the legal health record. It is not the complete legal health record.[facility]
--- OUTSIDE RECORDS SUMMARY | 2024-12-03 11:01 | XMS_ITS | Encounter Summary ---
Author Organization [facility] Address [address] [place] [address] Phone Care Team Providers Care Hydraulic Boom Operator Name Role Phone Thu Gallardo MANAGER EMBALMER FUNERAL DIRECTOR Primary Care Provider + Minerva Ferrara MANAGER EMBALMER FUNERAL DIRECTOR Primary Care Provider Encounter Details Date Type Department Care Team (Late st Contact Info) Description 10/10/2020 Procedure Pass [facility], Ct Scan - [facility] [address] [place] [address] Social History Tobacco Use Types Packs/Day Years Used Date Smoking Tobacco: Every Day Smokeless Tobacco: Never Alcohol Use Standard Drinks/Week Comments Not Currently 0 (1 standard drink = 0.6 oz pur e alcohol) Comments Unknown Sex and Gender Information Value Date Recorded Sex Assigned at Not on file Legal Sex Female 3:04 PM EDT Gender Identity Female 09/26/2023 8:54 AM EDT Sexual Orientation Pansexual 09/26/2023 8: 54 AM EDT documented as of this encounter Functional Status * Calculated C-SSRS Risk Score (Lifetime/Recent) Answer Date of Assessment Author No Risk Indicated 10/10/2020 10:00 PM EDT Dara Perez, RACHELE * [place] Suicide Severity Rating Scale (Screener/Recent Self-Report) Question Answer Date of Assessment Author 1. Wish to be (Past 1 Month) No 10/10/2020 10:00 PM EDT Blake Holland, RACHELE 2. Non-Specific Active Suici rekha Thoughts (Past 1 Month) No 10/10/2020 10:00 PM Dara Calvillo RN 6. Suicidal Behavior (Lifetime) No 10:00 PM Dara Calvillo RN documented as of this encounter Plan of Treatment Not on file documented as of this encounter Visit Diagnoses Not on filedocumented in this encounter Care Teams Hydraulic Boom Operator Relationship Specialty Start Date End Date Thu Gallardo NP [address] [place] [id number] PCP - General Nurse Practitioner 10/10/20 09/25/23 Minerva Ferrara NP [address] [place] [address] [place] [address] [email or web address] PCP - General Nurse Practitioner 09/26/23 documented as of this encounter Additional Source Comments The information contained in this document represents components of the legal health record. It is not the complete legal health record.[facility]
--- OUTSIDE RECORDS SUMMARY | 2024-12-03 11:01 | XMS_ITS | Encounter Summary ---
Author Organization [facility] Address [address] [place] [address] Phone Care Team Providers Care Utility Maintenance Worker Name Role Phone Thu Gallardo DAM WORKER Primary Care Provider + Minerva Ferrara DAM WORKER Primary Care Provider Encounter Details Date Type Department Care Team (Late st Contact Info) Description 10/10/2020 Procedure Pass [facility], Ct Scan - [facility] [address] [place] [address] Social History Tobacco Use Types Packs/Day Years [...] 10:00 PM EDT Dara Perez, RACHELE * [place] Suicide Severity Rating Scale (Screener/Recent Self-Report) Question [...] on filedocumented in this encounter Care Teams Utility Maintenance Worker Relationship Specialty Start Date End Date Thu Gallardo NP [address] [place] [address] PCP - General Nurse Practitioner 10/10/20 09/25/23 Minerva Ferrara NP [address] [place] [address] [place] [address] [email or web address] PCP - General Nurse Practitioner 09/26/23 documented as of this encounter Additional Source Comments The information contained in this document represents components of the legal health record. It is not the complete legal health record.[facility]
--- OUTSIDE RECORDS SUMMARY | 2024-12-03 11:01 | XMS_ITS | Encounter Summary ---
Author Organization [facility] Address [address] [place] [address] Phone Care Team Providers Care Clothes Wringer Name Role Phone Thu Gallardo CATTERY OPERATOR Primary Care Provider + Minerva Ferrara CATTERY OPERATOR Primary Care Provider Encounter Details Date Type Department Care Team (Late st Contact Info) Description 10/10/2020 Procedure Pass [facility] [address] [place] [address] Social History Tobacco Use Types Packs/Day Years [...] Risk Indicated 10/10/2020 10:00 PM EDT Dara Perez RN * [place] Suicide Severity Rating Scale (Screener/Recent Self-Report) Question Answer Date of Assessment Author 1. Wish to be (Past 1 Month) No 10/10/2020 10:00 PM EDT Blake Holland, RACHELE 2. Non-Specific Active Suici rekha Thoughts (Past 1 Month) No 10/10/2020 10:00 PM EDT Dara Holland RN 6. Suicidal Behavior (Lifetime) No 1 10:00 PM EDT Dara Holland RN documented as of this encounter Plan of Treatment Not on file documented as of this encounter Visit Diagnoses Not on filedocumented in this encounter Care Teams Clothes Wringer Relationship Specialty Start Date End Date Thu [facility] [place] [address] PCP - General Nurse Practitioner 10/10/20 09/25/23 Minerva Ferrara NP [address] [place] [address] [place] [address] [email or web address] PCP - General Nurse Practitioner 09/26/23 documented as of this encounter Additional Source Comments The information contained in this document represents components of the legal health record. It is not the complete legal health record.[facility]
--- OUTSIDE RECORDS SUMMARY | 2024-12-03 11:01 | XMS_ITS | Encounter Summary ---
Author Organization [facility] Address [address] [place] [address] Phone Care Team Providers Care Crepe Machine Operator Name Role Phone Thu Gallardo BRIQUETTE OPERATOR Primary Care Provider + Minerva Ferrara BRIQUETTE OPERATOR Primary Care Provider Encounter Details Date Type Department Care Team (Late st Contact Info) Description 10/10/2020 Procedure Pass [facility], [facility] [address] [place] [address] Social History Tobacco Use Types Packs/Day Years [...] 10:00 PM EDT Dara Perez, RACHELE * [place] Suicide Severity Rating Scale (Screener/Recent Self-Report) Question [...] on filedocumented in this encounter Care Teams Crepe Machine Operator Relationship Specialty Start Date End Date Thu Gallardo NP [address] [place] [phone] PCP - General Nurse Practitioner 10/10/20 09/25/23 Minerva Ferrara NP [address] [place] [address] [place] [address] [email or web address] PCP - General Nurse Practitioner 09/26/23 documented as of this encounter Additional Source Comments The information contained in this document represents components of the legal health record. It is not the complete legal health record.[facility]
--- OUTSIDE RECORDS SUMMARY | 2024-12-03 11:01 | XMS_ITS | Clinical Summary ---
Demographics Address [address] [place] [address] [address] [place] [address] Home Phone Mobile Phone Email Address Preferred Language Georgian Marital Status /Civil Union Zoroastrian Affiliation Unknown Race White Ethnic Group Not or Lati no Author Organization [facility] Address [address] [place] [phone] Phone Care Team Providers Care Associate Artistic Director Name Role Phone Minerva Ferrara DIRECTOR LEARNING AND DEVELOPMENT Primary Care Provider Allergies Active Allergy Reactions Criticality Noted Date Comments Azithromycin 10/10/2020 Erythromycin 01/17/2021 Hydrocodone-Acetaminophen Hives 09/13/2015 Oxycodone-Acetaminophen Hives 09/13/2015 Medications buPROPion (WELLBUTRIN XL) 300 MG ER 24 hr tablet Take 300 mg by mouth daily. Active dextroamphetami ne 10 MG tablet Take 10 mg by mouth daily. Unknown of dose Active metoprolol tartrate (LOPRESSOR) 25 MG tablet Take 12.5 mg by mouth daily. Active omeprazole (PRILOSEC) 10 MG capsule Take 20 mg by mouth daily. Active QUEtiapine (SEROQUEL) 25 MG tablet Take 25 mg by mouth nightly at bedtime. Active clonazePAM (KLONOPIN) 0.5 MG tablet Take 1 mg by mouth daily as needed for anxiety. Active metFORMIN (GLUCOPHAGE) 500 MG tablet Take 1 tablet (500 mg total) by mouth 2 (two) times a day with meals. Okay to restart tomorrow night 10/12/2020 Active nicotine (NICODERM CQ) 14 mg/[address] 1 patch onto the skin daily. 15 patch 2020 Active Active Problems Problem Noted Date Diagnosed Date Numbness and tingling of right face 10/10/2020 Hypertensive disorder Assessment & Plan (10/12/2020 12:50 PM EDT): Held antihypertensives to allow for permissive hypertension restart Diabetes mellitus Assessment & Plan (10/12/2020 12:51 PM EDT): Restart Metformin tomorrow shannon Bipolar affective disorder Assessment & Plan (10/10/2020 5:18 PM EDT): Continue Seroquel, Wellbutrin, Klonopin and Ritalin Stroke-like symptoms Assessment & Plan (10/12/2020 12:50 PM EDT): Right arm and leg numbness weakness, right facial numbness and tingling, headache, nausea, blurring of vision. Improved overnight but still with mild rt arm and leg weakness, mild drift and decreased facial numbness MRI and echocardiogram without acute findings, [facility] [place] feels this may be migraine and patient should follow-up with neurologist within 6 weeks Immunizations Immunization Administration Dates Next Due Tdap 01/17/2021 Family History Medical History Relation Comments Heart disease Maternal Grandmother Relation Status Comments Maternal Grandmother Social History Tobacco Use Types Packs/Day Years [...] Orientation Pansexual 09/26/2023 8: 54 AM EDT Last Filed Vital Signs Vital Sign Reading Time Taken Comments Blood Pressure 142/90 01/17/2021 6:54 PM EDT Pulse 82 01/17/2021 6:54 PM EDT Temperature 36.2 C (97.2 F) 01/17/2021 6:54 PM EDT Respiratory Rate 20 01/17/2021 6:54 PM EDT Oxygen Saturation 99% 01/17/2021 6:54 PM EDT Inhaled Oxygen Concentration - - Weight 97.5 kg (215 lb) 01/17/2021 6:54 PM EDT Height 160 cm (5' 3 ) 01/17/2021 6:54 PM EDT Body Mass Index 38.09 01/17/2021 6:54 PM EDT Plan of Treatment Health Maintenance Due Date Last Done Comments BLOOD PRESSURE 1981 DEPRESSION SCREENING 1993 SMOKING Hx and SMOKELESS TOBACCO SCREENING 1994 HEPATITIS C SCREENING 10/14/1999 HIV ONE-TIME SCREENING (18-6 5 YEARS) 10/14/1999 PNEUMOCOCCAL VACCINES (0-49 years) (1 of 2 - PCV) 2000 PAP SMEAR 2002 DIABETIC EYE EXAM 10/10/2020 URINE MICROALBUMIN/CREATININ E RATIO 10/10/2020 HEMOGLOBIN A1C 04/13/2021 10/11/2020 LIPID PANEL 10/11/2021 10/11/2020 CREATININE LEVEL 10/12/2021 10/12/2020, 10/11/2020, 10/10/2020 MAMMOGRAM 2021 COVID-19 VACCINE (2 - 2023-2 5 season) 2023 08/14/2020 Adult Td,Tdap Booster 01/17/2031 01/17/2021 HEPATITIS A VACCINES Aged Out No long er eligible based on patient's age to complete this topic HIB VACCINES Aged Out No longer eligi ble based on patient's age to complete this topic MENINGOCOCCAL VACCINES (ACWY) Aged Out No longer eligible based on patient's age to complete this topic MENINGOCOCCAL VACCINES (B) Aged Out N o longer eligible based on patient's age to complete this topic Medical Devices Not on file Procedures Procedure Name Priority Date/Time Associated Diagnosis Comments BASIC METABOLIC PANEL Routine 10/12/2020 6:17 AM EDT HEMOGLOBIN A1C Routine 10/11/2020 5:42 AM EDT LIPID PANEL Routine 10/11/2020 5:42 AM EDT from Last 3 Months or Most Recently Relevant to Health Maintenance Results * (ABNORMAL) Basic metabolic panel (10/12/2020 6:17 AM EDT) SODIUM 139 133 - 146 mmol/L CHLORIDE 105 96 - 108 mmol/L POTASSIUM 3.5 3.3 - 5.1 mmol/L CO2 25 21 - 35 mmol/L BUN 11 6 - 19 mg/dL CREATININE 0.60 0.5 - 1.5 mg/dL GLUCOSE 139(H) 70 - 99 mg/dL CALCIUM 8.3(L) 8.4 - 10.3 mg/dL EGFR 116 >59 mL/min/1.7 3m2 Comment:Estimated glomerular filtration rate calculated using the CKD-EPI equation. ANION GAP 13 10 - 20 mmol/L Blood 10/12/2020 6:17 AM EDT 10/12/2020 6:23 AM EDT Aileen Wright DIRECTOR LEARNING AND DEVELOPMENT LAB BLOOD ORDERABLES Fi nal Result Performing Organization Address [facility]/ZIP Co de Phone Number [address] [address] * (ABNORMAL) Hemoglobin A1c (10/11/2020 5:42 AM EDT) HEMOGLOBIN A1C 7.3(H) 4.3 - 5.8 % Blood 10/11/2020 5:42 AM EDT 10/11/2020 6:20 AM EDT Aileen Wright DIRECTOR LEARNING AND DEVELOPMENT LAB BLOOD ORDERABLES Fi nal Result Performing Organization Address City/[facility]/ZIP Co de Phone Number [address] [address] * (ABNORMAL) Lipid panel (10/11/2020 5:42 AM EDT) HDL 28 mg/dL Comment: Interpretation <40 mg/dL: Low HDL cholesterol (major risk factor for CHD) Greater than or equal to 60 mg/dL: High HDL cholesterol ( negative risk factor for CHD) HDL - cholesterol is affected by a number of factors, e.g. smoking, excerise, hormones, sex and age. CHOLESTEROL 127 0 - 240 mg/dL TRIGLYCERIDES 140 30 - 160 mg/dL LDL 71 50 - 129 mg/dL Comment: LDL levels in terms of risk for coronary heart disease: <100 mg/dL: Optimal 100-129 mg/dL: Near or above optimal 130-159 mg/dL: Borderline high 160-189 mg/dL: High >190 mg/dL: Very High CARDIAC RISK RATIO 4.5(H) 3.3 - 4.4 [facility] Blood 10/11/2020 5:42 AM EDT 10/11/2020 6:20 AM EDT us Aileen Wright NP LAB BLOOD ORDERABLES nal Result [address] [place] [address] from Last 3 Months or Most Recently Relevant to Health Maintenance Insurance * Guarantor: Linda Martinez Account Type Relation to Patient Date of Phone Billing Address Personal/Family Self [address] [place] [address] [facility] [employer] [employer] [employer] [employer] [address] [place] [employer] [employer] [facility] [employer] [address] [place] [address] [employer] [employer] [address] [place] [address] [employer] [facility] [employer] [address] [place] [address] [employer] [employer] [address] [place] [id number] [employer] Advance Directives For more information, please contact: [phone] (9AM - 5PM Martina/[facility], Monday-Monday) Documents on File Type Date Recorded Patient Postpartum Nurse Expl anation Healthcare Proxy 2020 2:16 PM * Full Code (Latest Code Status on File) Date Activated Date Inactivated Comments 10/10/2020 6:09 PM Question Answer Comments Code Status Confirmed With: Patient Care Teams Associate Artistic Director Relationship Specialty Start Date End Date Mienrva Ferrara NP [address] [place] [address] [place], [place] [phone] [email or web address] PCP - General Nurse Practitioner 09/26/23 Additional Source Comments The information contained in this document represents components of the legal health record. It is not the complete legal health record.[facility]
== END 2024-12-03 11:01 | disposition home or self-care (01) ==
LOC: HO.HGS 10:21
PROVIDERS: PCP Nurse Practitioner Family; Visit Provider Surgery
DX: K64.9 Unspecified hemorrhoids (principal)
CPT/HCPCS: 99024

== ENCOUNTER → 2024-12-03 10:20 | Outpatient (BNVA) | payer OTHER, SELFPAY | PROVIDERS: PCP Nurse Practitioner Family; Visit Provider Surgery | DX: K64.9 Unspecified hemorrhoids (principal) | CPT/HCPCS: 99212 ==

== ENCOUNTER 2024-12-04 12:06 | Outpatient (AMB) | payer OTHER, SELFPAY ==
--- NOTE | 2024-12-04 12:09 | MHC.PC.OV ---
Intake Visit Reasons: 3 mo CPE Intake Note: CPE. Patient wants to discuss about her constipation, also patient c/o right knee px and swollen is worse when pants rub on it or anything that touvhes the knee. Patient has questions regardding breast issues. 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 Allergies hydrocodone (From VICODIN) Allergy (Mild, Verified 12/04/24 12:28) HIVES oxycodone (From PERCOCET) Allergy (Mild, Verified 12/04/24 12:28) HIVES azithromycin (AZITHROMYCIN) Allergy (Unknown, Verified 12/04/24 12:28) NAUSEA & VOMITING erythromycin base (From ERYTHROCIN) Allergy (Unknown, Verified 12/04/24 12:28) NAUSEA & VOMITING metformin Adverse Reaction (Mild, Uncoded 12/04/24 12:12) Gastrointestinal Upset Medication List - Last Reconciled 12/04/24 by DYLON Travis- acetaminophen (Tylenol Extra Strength) 1,000 mg (2 x 500 mg) PO Q8H PRN albuterol sulfate 90 mcg/actuation 2 puffs inhalation Q4-6H PRN amitriptyline 50 mg PO BEDTIME atorvastatin 10 mg PO BEDTIME blood sugar diagnostic (FreeStyle Lite Strips) twice per day blood-glucose meter (FreeStyle [place] Lite kit) As directed bupropion HCl XL 300 mg PO DAILY cephalexin 500 mg PO Q6H cholecalciferol (vitamin D3) 50 mcg PO DAILY docusate sodium (Colace) 100 mg PO BID 30 days gabapentin 100 - 400 mg (1 - 4 x 100 mg) PO BEDTIME 30 days hydrocortisone 2.5% 1 appl [place] BID-QID PRN lidocaine 5% 1 patch topical DAILY PRN linaclotide (Linzess) 290 mcg PO DAILY lisinopril 5 mg PO DAILY lorazepam (Ativan) 0.5 mg PO BID PRN meloxicam 15 mg PO DAILY menthol-zinc oxide 0.44-20.6 % (Calmoseptine) 1 appl topical QID PRN metoprolol tartrate 25 mg PO DAILY omeprazole 40 mg PO BID@0630,1630 ondansetron 4 mg PO Q8H PRN 5 days sumatriptan succinate (Imitrex) 100 mg PO DAILY PRN Tobacco use date assessed: 12/04/24 Dental Screening Dental Screen Date: 12/04/24 Did you have a dental visit in the last 12 months?: Yes Did you have a dental problem in the last 6 months where you did not have access to dental care?: No Was dental information given to patient?: Patient has dentist HPI HPI Comments History of Present Illness Details 44-year-old female with diabetes 2, asthma, anxiety, MDD, constipation, bipolar 1 disorder, sleep apnea, renal stones, PTSD, lupus, hypertension, fibromyalgia, 3.6 cm hypodense lesion in the liver at the junction of the right and left hepatic lobes with thin rim calcification along the right lateral wall of the lesion, CAD, Small fat-containing anterior midline hernia , diverticulosis, fatty liver, splenomegaly, osteoarthritis multiple joints, vitamin d def, fhx colon ca (Mom age 59) Status post hysterectomy, hernia repair, 10/[address] Garcia Fhx: Mom colon CA dx 59 Social: , has children, 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 Cecum not visualised but remaining mucosa normal. (biopsy), Total of 1 polyp removed, External and internal hemorrhoids with stigmata of recent bleeding, diverticulosis Recommendations: - Follow path results. - Repeat colo at 46y.o as today's colo was not adequate for CRC screening Mammo 11/2024 - surgical consult needed. Specialist Urology Breast Specialist Neuro Sleep Medicine Counselor/Nurse [facility] - 02/2024 [facility] Eye exam neg; + cataracts History of Present Illness - The patient is a 44-year-old female presenting for her wellness visit & chronic dz mgmt - Persistent hemorrhoids with severe pain - Severe constipation managed with dietary adjustments and castor oil - GI appt this week - Rectal spasms managed with amitriptyline, effective since October surgical intervention. - Scheduled GI evaluation for gastrointestinal complaints. Taking Zofran for nauseas 4-5 x week. On PPI. Told her to speak w/ GI about this as zofran will worsen her constipation. - Bilateral breast duct issue undergoing surgical consultation - Family history of colon cancer. - Knee pain post-fall incident, R . - Early-stage cataracts noted. - DM diet controlled; HLD on statin. BP managed on current meds. Migraines controlled current meds. Social History - The patient is and shares responsibility for medication management with her . - Dietary modifications include a shift towards non-dairy to manage symptoms and family dietary needs due to intolerance and celiac concerns. - Engages in social activities and community events, supportive of family including her son. Health Maintenance - Scheduled GI appointment next week for gastrointestinal complaints. - Mammogram completed in October with biopsy in November; surgical consultation referral for breast duct issue. - Upcoming eye exam due in February with noted history of early-stage cataracts. - Colonoscopy recommendations updated given family history of colon cancer. Review of Systems - Gastrointestinal: Reports hemorrhoids, constipation, rectal spasms. - Musculoskeletal: Reports knee pain post-fall. - Neurological: Reports rectal spasms. - Ophthalmological: Denies acute vision problems, notes early-stage cataracts. - Psychological: Denies current side effects from psychiatric medications (bupropion). - Respiratory: Reports using albuterol as needed, no acute respiratory complaints. - Breast: Reports bilateral bloody discharge. Physical Exam General: Well developed, well nourished, in no acute distress. Appears stated age. Head: Normocephalic, atraumatic. Eyes: Pupils are equal, round and reactive to light and accommodation. Conjunctivae are clear. Vision grossly normal. Ears: TMs clear AU, EACS WNL Nose: Patent, without discharge. Neck: Supple, no adenopathy or thyromegaly. Breast: Edu on SBE. History of bilateral bloody discharge, recommend surgical consult. Lungs: Clear to auscultation bilaterally. No rales, rhonchi or wheeze noted. Good air flow in all germain. Heart: Regular rate and rhythm. No murmurs, click, rubs or gallops are noted. Abdomen: Bowel sounds present in all quadrants. The abdomen is soft, nontender, with no masses or organomegaly noted. No hernias are noted. : Deferred. Reviewed recommendations for routine MACHINE SAND MIXER. Pulses: Peripheral pulses are equal and palpable bilaterally. Extremities: No clubbing, cyanosis nor edema is noted. Pain generally speaking R knee, no redness, swelling. Normal gait. Neurologic: Gait and station normal. Cranial Nerves 2-12 intact. Motor strength grossly symmetrical and intact. No sensory loss. Balance normal. Skin: No rashes, ulcers, or lesions noted. Turgor is good. Skin color is good. Hair and nails are without abnormalities. Psych: Normal eye contact, affect and mood appropriate, and normal interactions. Patient is alert and appropriate to context. Results - Labs: Recent mammogram and biopsy 11/2024 - Imaging: Targeted breast ultrasound showing no malignancy. Discussion Notes In today?s visit, I reviewed the current management of the patient?s persistent hemorrhoids and related constipation, including the continued use of amitriptyline, which has been effective in managing rectal spasms. We discussed potential constipation remedies, like dietary changes, and the patient has a GI consultation pending. I noted her recent infection and subsequent antibiotic treatment. Additionally, we addressed ongoing concerns about bilateral breast duct issues that the patient is following up with a surgical consult, as well as the management of her knee pain from an earlier incident. Given the family history of colon cancer, I clarified her relative risk and advised on her colonoscopy screening schedule. I also emphasized the importance of managing her cataract development through future routine eye exams. Consent for referrals to GI next week and breast surgeons was discussed regarding her current problems. The patient is aware of the necessary ongoing follow-up evaluations. Patient was given time to ask questions. All questions were answered to their satisfaction. Assessment and Plan 1. Hemorrhoids - Continue amitriptyline. - Scheduled GI consult. - Dietary adjustments recommended. 2. Constipation - Discussed GI management pending appointment. - Use stool softeners; dietary changes continue. 3. DM/HLD/HTN: cont meds. 4. Breast duct issue - Surgical consultation. - Follow previous imaging. 5. Knee Pain, R - Orthopedic walk-in eval needed. 6. Cataracts - Monitor annually. 7. Hyperlipidemia - Continue atorvastatin. 8. Family History of Colon Cancer - Ensure colonoscopy schedule noted. Patient Instructions - Continue current medications as directed. - Follow low-dairy or non-dairy diet. - Attend upcoming GI and breast surgery consultations. - Report any new symptoms to the office promptly. - Follow up with orthopedic walk-in for knee assessment. - Keep eye appointments and follow recommended screenings. - RTO 3-4 mo routine fu, sooner as needed. Consent Patient was informed and verbally consented to the use of an ambient scribe for clinic note documentation during this visit. An additional 45 minutes was spent addressing the problem(s) noted at todays visit. This includes time spent before the visit reviewing the chart, time spent during the visit, and time spent after the visit on documentation reviewing laboratory results, diagnostic imaging, medications, performing a medically necessary evaluation, counseling on diagnoses, care coordination, ordering appropriate tests, ordering appropriate medications, review of tests performed by other providers, reporting test results with the patient, communication with other healthcare providers. [facility] Medical History Postoperative pain Acute respiratory disease Nausea with vomiting, unspecified Nephrolithiasis Periodic limb movements of sleep Anemia Asthma Sleep apnea Migraine Sinusitis Breast pain, left Hypertension Sleep apnea Bipolar 1 disorder Depression Anxiety delivery delivered Diabetes Sciatica Kidney infection Kidney stones HTN (hypertension) Fibromyalgia Lupus Surgical History S/P hemorrhoidectomy (10/28/24) Hx of colonoscopy History of esophagogastroduodenoscopy (EGD) H/O section H/O: hysterectomy Family History Maternal Grandmother HTN (hypertension) Diabetes Cancer Mother Ovarian cancer Other FH: mental illness Substance use Social History Household Members: Spouse Housing: Apartment Are you a primary primary care sales representative to a significant other at home: No Do you presently have visiting nurse or other home services: No Alcohol intake: current Alcohol intake frequency: holidays/special occasions only Alcohol type: hard liquor Patient Tobacco Use Status: Former Tobacco user Tobacco use type: Smokeless Tobacco e-Cigarette/Vaping Use: Currently Using Substance Use Type: Marijuana Advance Directives Date on File: 02/02/24 service: No Current occupational status: employed 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 Current occupational exposures/hazards: No Cognitive needs: No Hearing needs: No Vision needs: Yes (glasses) Questionnaire Thrive Questionnaire Date Thrive assessed: 04/26/24 I am a: Patient What is your living situation today?: I have a steady place to live Within the past 12 months, did the food you bought not last and you didn't have the money to get more?: Sometimes True Within the past 12 months, did you worry whether your food would run out before you got money to buy more?: Sometimes True Do you have trouble paying for medicines?: No Do you have trouble getting transportation to medical appointments?: No Do you have trouble paying your heating and electricity bill?: Yes Do you have trouble taking care of your child, family member or friend?: No Do you have trouble with day-to-day activities such as bathing, preparing meals, shopping, managing finances, etc.?: No Are you currently unemployed and looking for a job?: No Are you interested in more education?: No Please select the resources that you would like help with: None THRIVE Score: 3 JONATHON-7 AMB Questionnaire JONATHON-7 Date JONATHON - 7 assessed: 09/04/24 Source: Developed by Drs. Rob Parry, Tana Rowley, Gen Mcdonald and colleagues, with an educational ezra from [employer]. Physical exam (Primary Care) BMI Assessment/Plan discussion: High BMI High, discussed plan: lifestyle Tobacco/Smoking Status: Tobacco use Status Tobacco use date assessed 12/04/24 12/04/24 12:15 Patient Tobacco Use Status Former Tobacco user 12/04/24 12:11 Tobacco use type Smokeless Tobacco 12/04/24 12:11 e-Cigarette/Vaping Use Currently Using 12/04/24 12:11 Thrive Assessment: Date of Thrive Assessment Date Thrive assessed 04/26/24 12/04/24 12:11 Office Procedures Diabetic Foot Exam Details: NORMAL MONOFILAMENT AND VIBRATORY SENSATION BILAT G9226 - Diabetic Foot Exam Coding Level of Care Code Est Pt Level 5 (30421) Est Pt Prev Care 40-64y(98556) Diagnoses Encounter for general adult medical examination without abnormal findings Z00.00 Family history of colon cancer in mother Z80.0 Abnormal mammogram of right breast R92.8 Galactorrhea N64.3 Laboratory exam ordered as part of routine general medical examination Z00.00 Marijuana use F12.90 Hypertension due to endocrine disorder I15.2 Hypertension type: secondary to endocrine disorders Coronary artery disease involving [place] coronary artery of [place] heart without angina pectoris I25.10 Coronary Disease-Associated Artery/Lesion type: [place] artery [place] vs. transplanted heart: [place] heart Associated angina: without angina DM type 2 causing complication E11.8 Class 2 severe obesity due to excess calories with serious comorbidity and body mass index (BMI) of 36.0 to 36.9 in adult E66.812; E66.01; Z68.36 Obesity type: due to excess calories Obesity classification: adult class 2 (BMI 35 - 39.9) Body mass index: BMI 36.0-36.9 Nausea and vomiting, unspecified vomiting type R11.2 Vomiting type: unspecified Chronic constipation K59.09 Migraine without aura and without status migrainosus, not intractable G43.009 Status migrainosus presence: without status migrainosus Intractability: not intractable Lumbar radiculopathy M54.16 IGNACIO on CPAP G47.33 Recurrent knee pain M25.569 CPT Codes Diabetic Foot Exam - CPT: G9226 - Diabetic Foot Exam ([id number]) Assessment & Plan Assessment & Plan (1) Encounter for general adult medical examination without abnormal findings: Onset Date: ~12/04/24 Code(s): Z00.00 - Encounter for general adult medical examination without abnormal findings Category: Medical (2) Family history of colon cancer in mother: Code(s): Z80.0 - Family history of malignant neoplasm of digestive organs Category: Medical (3) Abnormal mammogram of right breast: Code(s): R92.8 - Other abnormal and inconclusive findings on diagnostic imaging of breast Category: Medical (4) Galactorrhea: Code(s): N64.3 - Galactorrhea not associated with childbirth Category: Medical (5) Laboratory exam ordered as part of routine general medical examination: Code(s): Z00.00 - Encounter for general adult medical examination without abnormal findings Category: Medical (6) Marijuana use: Code(s): F12.90 - Cannabis use, unspecified, uncomplicated Category: Medical (7) HTN (hypertension): Code(s): I10 - Essential (primary) hypertension Category: Medical Qualifiers: Hypertension type: secondary to endocrine disorders Qualified Code(s): I15.2 - Hypertension secondary to endocrine disorders (8) CAD (coronary artery disease): Code(s): I25.10 - Atherosclerotic heart disease of [place] coronary artery without angina pectoris Category: Medical Qualifiers: Coronary Disease-Associated Artery/Lesion type: [place] artery [place] vs. transplanted heart: [place] heart Associated angina: without angina Qualified Code(s): I25.10 - Atherosclerotic heart disease of [place] coronary artery without angina pectoris (9) DM type 2 causing complication: Code(s): E11.8 - Type 2 diabetes mellitus with unspecified complications Category: Medical (10) Obesity with serious comorbidity: Comment: with dm and htn Code(s): E66.9 - Obesity, unspecified Category: Medical Qualifiers: Obesity type: due to excess calories Obesity classification: adult class 2 (BMI 35 - 39.9) Body mass index: BMI 36.0-36.9 Qualified Code(s): E66.812 - Obesity, class 2; E66.01 - Morbid (severe) obesity due to excess calories; Z68.36 - Body mass index [BMI] 36.0-36.9, adult (11) Nausea with vomiting, unspecified: Code(s): R11.2 - Nausea with vomiting, unspecified Category: Medical Qualifiers: Vomiting type: unspecified Qualified Code(s): R11.2 - Nausea with vomiting, unspecified (12) Chronic constipation: Code(s): K59.09 - Other constipation Category: Medical (13) Migraine headache without aura: Code(s): G43.009 - Migraine without aura, not intractable, without status migrainosus Category: Medical Qualifiers: Status migrainosus presence: without status migrainosus Intractability: not intractable Qualified Code(s): G43.009 - Migraine without aura, not intractable, without status migrainosus (14) Lumbar radiculopathy: Code(s): M54.16 - Radiculopathy, lumbar region Category: Medical (15) IGNACIO on CPAP: Comment: 10/02/23 in-lab PSG: In-lab PSG which revealed: AHI 7.6/hr, REM AHI 24/hr w/ O2 benigno 82% w/ SpO2 < 88% x's 7.5 min, and average SpO2 92%; Periodic limb movement of sleep (PLMS) index: 71.5/hr; PLMS arousal index: 4.6/hr. Code(s): G47.33 - Obstructive sleep apnea (adult) (pediatric) Category: Medical (16) Recurrent knee pain: Code(s): M25.569 - Pain in unspecified knee Plan . Orders: Orders Comprehensive Met. Panel 12/04/24 Z00.00 - Encounter for general adult medical examination without abnormal findings Hemoglobin A1c 12/04/24 Z00.00 - Encounter for general adult medical examination without abnormal findings Lipid Panel 12/04/24 Z00. - Encounter for general adult medical examination without abnormal findings Vitamin B12 and Folate 12/04/24 Z. - Encounter for general adult medical examination without abnormal findings Microalbumin, Random (w Creat) 12/04/24 Z. - Encounter for general adult medical examination without abnormal findings TSH reflex Free T4 12/04/24 Z. - Encounter for general adult medical examination without abnormal findings Vitamin D 25-OH Total 12/04/24. - Encounter for general adult medical examination without abnormal findings Referrals Breast Surgery Referral N64.3 - Galactorrhea not associated with childbirth, R92.8 - Other abnormal and inconclusive findings on diagnostic imaging of breast Medications: Refilled amitriptyline 50 mg PO BEDTIME 90 tabs 2RF sumatriptan succinate (Imitrex) 100 mg orally PRN; 100 mg PO DAILY PRN 7 tabs 4RF migraine headache ondansetron 4 mg PO Q8H PRN 15 tabs 12RF nausea and vomiting 5 days Patient Instructions: Health screenings for women You should visit your health care provider from time to time, even if you are healthy. The purpose of these visits is to: Screen for medical issues Assess your risk for future medical problems Encourage a healthy lifestyle Update vaccinations and other preventive care services Help you get to know your provider in case of an illness Information Even if you feel fine, you should still see your provider for regular checkups. These visits can help you avoid problems in the future. For example, the only way to find out if you have high blood pressure is to have it checked regularly. High blood sugar and high cholesterol levels also may not have any symptoms in the early stages. A simple blood test can check for these conditions. There are specific times when you should see your provider or receive specific health screenings. The [place] Preventive Services Task Force publishes a list of recommended screenings. Below are screening guidelines for women ages 18 to 39. BLOOD PRESSURE SCREENING Your blood pressure should be checked at least once every 3 to 5 years if: Your blood pressure is in the normal range (top number less than 120 mm Hg and bottom number less than 80 mm Hg) You don't have risk factors for high blood pressure Ask your provider if you need your blood pressure checked more often if: The top number is 120 to 129 mm Hg or the bottom number is 70 to 79 mm Hg You have diabetes, heart disease, kidney problems, are overweight, or have certain other health conditions You have a first-degree relative with high blood pressure You are Black You had high blood pressure during a If the top number is 130 mm Hg or greater or the bottom number is 80 mm Hg or greater, this is considered stage 1 hypertension. Schedule an appointment with your provider to learn how you can reduce your blood pressure. Watch for blood pressure screenings in your area. Ask your provider if you can stop in to have your blood pressure checked. BREAST CANCER SCREENING Experts do not agree about the benefits of breast self-exams in finding breast cancer or saving lives. Talk to your provider about what is best for you. A screening mammogram is not recommended for most women under age 40. Your provider may discuss and recommend mammograms, MRI scans, or ultrasounds if you have an increased risk for breast cancer, such as: A mother or sister who had breast cancer at a young age (most often starting screening earlier than the age the close relative was diagnosed) You carry a high-risk genetic marker CERVICAL CANCER SCREENING Cervical cancer screening should start at age 21 years unless your provider advises otherwise. After the first test: Women ages 21 through 29 should have a Pap test every 3 years. Exoprts do not agree on whether HPV testing is recommended for this age group. Women ages 30 through 65 should be screened with either a Pap test every 3 years or the HPV test every 5 years or both tests every 5 years (called cotesting ). Women who have been treated for precancer (cervical dysplasia) should continue to have Pap tests for 20 years after treatment or until age 65, whichever is longer. If you have had your uterus and cervix removed (total hysterectomy), and you have not been diagnosed with cervical cancer or precancer (high grade cervical neoplasia), you do not need cervical cancer screening. CHOLESTEROL SCREENING Cholesterol screening should begin at: Age 45 for women with no known risk factors for coronary heart disease Age 20 for women with known risk factors for coronary heart disease Repeat cholesterol screening should take place: Every 5 years for women with normal cholesterol levels More often if changes occur in lifestyle (including weight gain and diet) More often if you have diabetes, heart disease, kidney problems, or certain other conditions DIABETES SCREENING You should be screened for diabetes starting at age 35 and then repeated every 3 years if you have no risk factors for diabetes. Screening may need to start earlier and be repeated more often if you have other risk factors for diabetes, such as: You have a first degree relative with diabetes. You are overweight or have obesity. You have high blood pressure, prediabetes, or a history of heart disease. Screening for diabetes should be done if you are planning to become and you are overweight and have other risk factors such as high blood pressure. DENTAL EXAM Go to the dentist once or twice every year for an exam and cleaning. Your dentist will evaluate if you need more frequent visits. EYE EXAM Have an eye exam every 5 to 10 years before age 40. If you have vision problems, have an eye exam every 2 years or more often if recommended by your provider. You should have an eye exam that includes an examination of your retina (back of your eye) at least every year if you have diabetes. IMMUNIZATIONS Commonly needed vaccines include: Flu shot: get one every year. COVID-19 vaccine: ask your provider what is best for you. Tetanus-diphtheria and acellular pertussis (Tdap) vaccine: have one at or after age 19 as one of your tetanus-diphtheria vaccines if you did not receive it as an adolescent. Tetanus-diphtheria: have a booster (or Tdap) every 10 years. Varicella vaccine: receive 2 doses if you never had chickenpox or the varicella vaccine. Hepatitis B vaccine: receive 2, 3, or 4 doses, depending on your exact circumstances. Measles, mumps, and rubella (MMR) vaccine: receive 1 to 2 doses if you are not already immune to MMR. Your provider can tell you if you are immune. Ask your provider about the human papillomavirus (HPV) vaccine if: You have not received the HPV vaccine in the past You have not completed the full vaccine series (you should catch up on this shot) Ask your provider if you should receive other immunizations if you have certain health problems that increase your risk for some diseases such as pneumonia. INFECTIOUS DISEASE SCREENING Women who are sexually active should be screened for chlamydia and gonorrhea up until age 25. Women 25 years and older should be screened for chlamydia and gonorrhea if at high risk. Screening for hepatitis C: All adults ages 18 to 79 should get a one-time test for hepatitis C. people should be screened at every . Screening for human immunodeficiency virus (HIV): All people ages 15 to 65 should get a one-time test for HIV. Depending on your lifestyle and medical history, you may also need to be screened for infections such as syphilis and HIV, as well as other infections. PHYSICAL EXAM All adults should visit their provider from time to time, even if they are healthy. The purpose of these visits is to: Screen for disease Assess your risk of future medical problems Encourage a healthy lifestyle Update your vaccinations and other preventive care services Maintain a relationship with a provider in case of an illness Your height, weight, and BMI should be checked at every exam. During your exam, your provider may ask you about: Depression and anxiety Diet and exercise Alcohol and tobacco use Safety issues, such as using seat belts, smoke detectors, and intimate partner violence Your medicines and risk for interactions SKIN SELF-EXAM Your provider may check your skin for signs of skin cancer, especially if you're at high risk, such as if you: Have had skin cancer before Have close relatives with skin cancer Have a weakened immune system OTHER SCREENING Talk with your provider about colon cancer screening if you have a strong family history of colon cancer or polyps, or if you have had inflammatory bowel disease or polyps yourself. Routine bone density screening of women under 40 is not recommended.
--- OUTSIDE RECORDS SUMMARY | 2024-12-04 12:48 | XMS_ITS | Encounter Summary ---
Author Organization [facility] Address [address] [place] [address] Phone Care Team Providers Care Ux Engineer Name Role Phone Thu Gallardo VENEER SAMPLE MAKER Primary Care Provider + Minerva Ferrara VENEER SAMPLE MAKER Primary Care Provider Encounter Details Date Type Department Care Team (Late st Contact Info) Description 10/10/2020 Procedure Pass [facility], [facility] [address] [place] [address] Social History Tobacco Use Types Packs/Day Years [...] 10:00 PM EDT Dara Perez, RACHELE * [place] Suicide Severity Rating Scale (Screener/Recent Self-Report) Question [...] on filedocumented in this encounter Care Teams Ux Engineer Relationship Specialty Start Date End Date Thu Gallardo NP [address] [place] [address] PCP - General Nurse Practitioner 10/10/20 09/25/23 Minerva Ferrara NP [address] [place] [address] [place] [address] [email or web address] PCP - General Nurse Practitioner 09/26/23 documented as of this encounter Additional Source Comments The information contained in this document represents components of the legal health record. It is not the complete legal health record.[facility]
--- OUTSIDE RECORDS SUMMARY | 2024-12-04 12:48 | XMS_ITS | Encounter Summary ---
Author Organization [facility] Address [address] [place] [address] Phone Care Team Providers Care Forest Practices Field Coordinator Name Role Phone Thu Gallardo BLAST SETTER Primary Care Provider + Minerva Ferrara BLAST SETTER Primary Care Provider Encounter Details Date Type Department Care Team (Late st Contact Info) Description 10/10/2020 Procedure Pass [facility], Ct Scan - [facility] [address] [place] [address] Social History Tobacco Use Types Packs/Day Years [...] 10:00 PM EDT Dara Perez, RACHELE * [place] Suicide Severity Rating Scale (Screener/Recent Self-Report) Question [...] on filedocumented in this encounter Care Teams Forest Practices Field Coordinator Relationship Specialty Start Date End Date Thu Gallardo NP [address] [place] [address] PCP - General Nurse Practitioner 10/10/20 09/25/23 Minerva Ferrara NP [address] [place] [address] [place] [address] [email or web address] PCP - General Nurse Practitioner 09/26/23 documented as of this encounter Additional Source Comments The information contained in this document represents components of the legal health record. It is not the complete legal health record.[facility]
--- OUTSIDE RECORDS SUMMARY | 2024-12-04 12:48 | XMS_ITS | Encounter Summary ---
Author Organization [facility] Address [address] [place] [address] Phone Care Team Providers Care Manager Strategic Development Name Role Phone Thu Gallardo MOBILE LAB TECHNICIAN Primary Care Provider + Minerva Ferrara MOBILE LAB TECHNICIAN Primary Care Provider Encounter Details Date Type Department Care Team (Late st Contact Info) Description 10/10/2020 Procedure Pass [facility], Ct Scan - [facility] [address] [place] [address] Social History Tobacco Use Types Packs/Day Years [...] 10:00 PM EDT Dara Perez, RACHELE * [place] Suicide Severity Rating Scale (Screener/Recent Self-Report) Question [...] on filedocumented in this encounter Care Teams Manager Strategic Development Relationship Specialty Start Date End Date Thu Gallardo NP [address] [place] [address] PCP - General Nurse Practitioner 10/10/20 09/25/23 Minerva Ferrara NP [address] [place] [address] [place] [address] [email or web address] PCP - General Nurse Practitioner 09/26/23 documented as of this encounter Additional Source Comments The information contained in this document represents components of the legal health record. It is not the complete legal health record.[facility]
--- OUTSIDE RECORDS SUMMARY | 2024-12-04 12:48 | XMS_ITS | Encounter Summary ---
Author Organization [facility] Address [address] [place] [address] Phone Care Team Providers Care Manual Tester Name Role Phone Minerva Ferrara FELT CHECKER Primary Care Provider Encounter Details Date Type Department Care Team ([facility] st Contact Info) Description 08/27/2024 Telephone [facility] Pulmonary, Allergy and Critical Care Medicine [address] [facility] [place], [place] [id number] Cathy [email or web address] Social History Tobacco Use [...] on filedocumented in this encounter Care Teams Manual Tester Relationship Specialty Start Date End Date Minerva Ferrara NP [address] [place] [address] [place] [address] [email or web address] PCP - General Nurse Practitioner 09/26/23 documented as of this encounter Additional Source Comments The information contained in this document represents components of the legal health record. It is not the complete legal health record.[facility]
--- OUTSIDE RECORDS SUMMARY | 2024-12-04 12:48 | XMS_ITS | Encounter Summary ---
Author Organization [facility] Address [address] [place] [address] Phone Care Team Providers Care Acds Block 1 Operator Name Role Phone Thu Gallardo SENIOR LIBRARIAN Primary Care Provider + Minerva Ferrara SENIOR LIBRARIAN Primary Care Provider Encounter Details Date Type Department Care Team (Late st Contact Info) Description 10/10/2020 Procedure Pass [facility] [address] [place] [address] Social History Tobacco Use Types Packs/Day Years [...] 10:00 PM EDT Dara Perez RN * [place] Suicide Severity Rating Scale (Screener/Recent Self-Report) Question [...] on filedocumented in this encounter Care Teams Acds Block 1 Operator Relationship Specialty Start Date End Date Thu Gallardo [facility] [place] [address] PCP - General Nurse Practitioner 10/10/20 09/25/23 Minerva Ferrara NP [address] [place] [address] [place] [address] [email or web address] PCP - General Nurse Practitioner 09/26/23 documented as of this encounter Additional Source Comments The information contained in this document represents components of the legal health record. It is not the complete legal health record.[facility]
--- OUTSIDE RECORDS SUMMARY | 2024-12-04 12:48 | XMS_ITS | Clinical Summary ---
Demographics Address [address] [place] [address] [address] [place] [address] Home Phone Mobile Phone Email Address Preferred Language Finnish Marital Status /Civil Union Moravian Affiliation Unknown Race White Ethnic Group Not or Lati no Author Organization [facility] Address [address] [place] [address] Phone Care Team Providers Care Skatesman Name Role Phone Minerva Ferrara REPLANTER Primary Care Provider Allergies Active Allergy Reactions [...] numbness MRI and echocardiogram without acute findings, [facility] neurologist feels this may be migraine and [...] (2 - 2023-2 5 season) 2023 08/14/2020 INFLUENZA VACCINE (#1) 2024 Adult Td,Tdap Booster 01/17/2031 01/17/2021 HEPATITIS A [...] EDT) SODIUM 139 133 - 146 mmol/L [facility] CHLORIDE 105 96 - 108 mmol/L [facility] POTASSIUM 3.5 3.3 - 5.1 mmol/L [facility] CO2 25 21 - 35 mmol/L [facility] BUN 11 6 - 19 mg/dL [facility] CREATININE 0.60 0.5 - 1.5 mg/dL [facility] GLUCOSE 139(H) 70 - 99 mg/dL [facility] CALCIUM 8.3(L) 8.4 - 10.3 mg/dL [facility] EGFR 116 >59 mL/min/1.7 3m2 [facility] Comment:Estimated glomerular filtration rate calculated using the CKD-EPI equation. ANION GAP 13 10 - 20 mmol/L [facility] Blood 10/12/2020 6:17 AM EDT 10/12/2020 6:23 AM EDT us Aileen Wright REPLANTER LAB BLOOD ORDERABLES Fi nal Result Performing Organization Address [facility]/ZIP Co de Phone Number [address] [address] * (ABNORMAL) Hemoglobin A1c (10/11/2020 5:42 AM EDT) HEMOGLOBIN A1C 7.3(H) 4.3 - 5.8 % [facility] Blood 10/11/2020 5:42 AM EDT 10/11/2020 6:20 AM EDT Aileen Mayerance REPLANTER LAB BLOOD ORDERABLES Fi nal Result Performing Organization Address City/[facility]/ZIP Co de Phone Number [address] [address] * (ABNORMAL) Lipid panel (10/11/2020 5:42 AM EDT) HDL 28 mg/dL [facility] Comment: Interpretation <40 mg/dL: Low HDL cholesterol (major risk factor for CHD) Greater than or equal to 60 mg/dL: High HDL cholesterol ( negative risk factor for CHD) HDL - cholesterol is affected by a number of factors, e.g. smoking, excerise, hormones, sex and age. CHOLESTEROL 127 0 - 240 mg/dL [facility] TRIGLYCERIDES 140 30 - 160 mg/dL [facility] LDL 71 50 - 129 mg/dL [facility] Comment: LDL levels in terms of risk for coronary heart disease: <100 mg/dL: Optimal 100-129 mg/dL: Near or above optimal 130-159 mg/dL: Borderline high 160-189 mg/dL: High >190 mg/dL: Very High CARDIAC RISK RATIO 4.5(H) 3.3 - 4.4 C [facility] Blood 10/11/2020 5:42 AM EDT 10/11/2020 6:20 AM EDT us Aileen Wright NP LAB BLOOD ORDERABLES nal Result [facility] [address] [place] [address] from Last 3 Months or Most Recently Relevant to Health Maintenance Insurance * Guarantor: Linda Martinez Account Type Relation to Patient Date of Phone Billing Address Personal/Family Self [address] [place] [address] [facility] TOGETHER M[employer] [facility] TOGETHER [facility]HER [facility] [employer]HER [employer] [address] [place] [address] [facility] [employer]GETHER [employer] TOGETHER [employer] [address], [place] [phone] [place] [address] TOGETHER [employer] Advance Directives For more information, please contact: [phone] (9AM - 5PM Martina/[facility], Monday-Monday) Documents on File Type Date Recorded Patient Centrifugal Operator Expl anation Healthcare Proxy 2020 2:16 PM * Full Code (Latest Code Status on File) Date Activated Date Inactivated Comments 10/10/2020 6:09 PM Question Answer Comments Code Status Confirmed With: Patient Care Teams Skatesman Relationship Specialty Start Date End Date Minerva Ferrara NP [address] [place] [address] [place] [address] [email or web address] PCP - General Nurse Practitioner 09/26/23 Additional Source Comments The information contained in this document represents components of the legal health record. It is not the complete legal health record.[facility]
== END 2024-12-04 12:54 | disposition home or self-care (01) ==
LOC: HO.HMCFM 12:07
PROVIDERS: PCP Nurse Practitioner Family; Visit Provider Nurse Practitioner Family
DX: Z00.00 Encounter for general adult medical examination without abnormal findings (principal); E11.8 Type 2 diabetes mellitus with unspecified complications; R11.2 Nausea with vomiting, unspecified; E66.01 Morbid (severe) obesity due to excess calories; Z68.36 Body mass index [BMI] 36.0-36.9, adult; F12.90 Cannabis use, unspecified, uncomplicated; E66.812 Obesity, class 2; N64.3 Galactorrhea not associated with childbirth; Z80.0 Family history of malignant neoplasm of digestive organs; R92.8 Other abnormal and inconclusive findings on diagnostic imaging of breast; I15.2 Hypertension secondary to endocrine disorders; I25.10 Atherosclerotic heart disease of native coronary artery without angina pectoris

== ENCOUNTER → 2024-12-04 12:06 | Outpatient (BNVA) | payer OTHER, SELFPAY | PROVIDERS: PCP Nurse Practitioner Family; Visit Provider Nurse Practitioner Family | DX: Z00.00 Encounter for general adult medical examination without abnormal findings (principal); M25.561 Pain in right knee; K64.9 Unspecified hemorrhoids; K59.00 Constipation, unspecified; K59.4 Anal spasm; E78.5 Hyperlipidemia, unspecified; E11.36 Type 2 diabetes mellitus with diabetic cataract; H26.9 Unspecified cataract; R92.8 Other abnormal and inconclusive findings on diagnostic imaging of breast; N64.3 Galactorrhea not associated with childbirth; F12.90 Cannabis use, unspecified, uncomplicated; I15.2 Hypertension secondary to endocrine disorders; I25.10 Atherosclerotic heart disease of native coronary artery without angina pectoris; R11.2 Nausea with vomiting, unspecified; K59.09 Other constipation; G43.009 Migraine without aura, not intractable, without status migrainosus; M54.16 Radiculopathy, lumbar region; G47.33 Obstructive sleep apnea (adult) (pediatric); E66.01 Morbid (severe) obesity due to excess calories; E66.812 Obesity, class 2; Z80.0 Family history of malignant neoplasm of digestive organs; Z68.36 Body mass index [BMI] 36.0-36.9, adult; Z91.81 History of falling | CPT/HCPCS: 99212; 99396 ==

== ENCOUNTER 2024-12-11 08:29 | Outpatient (AMB) | payer OTHER, SELFPAY ==
--- NOTE | 2024-12-11 08:46 | MHC.OFFVIS ---
Vital Signs 12/11/24 08:52 Height 5 ft 3 in Weight 205 lb 0.478 oz BMI 36.3 BP 138/85 Blood Pressure Location Lt brachial Position Sitting Pulse 69 Intake Visit Reasons: 6 mo f/u Intake Note: Linda presents in the office as a 6 month follow up. CC: She states that she is having constipation and states that the surgery was pointless. She states that she has thrombosed homorrhoids. Bleeding has gone down but everything else has gotten worse. She does not want any more Rx. She gets constipation 2-4 days a week. Community Assistant Required: No Allergies hydrocodone (From VICODIN) Allergy (Mild, Verified 12/11/24 08:53) HIVES oxycodone (From PERCOCET) Allergy (Mild, Verified 12/11/24 08:53) HIVES azithromycin (AZITHROMYCIN) Allergy (Unknown, Verified 12/11/24 08:53) NAUSEA & VOMITING erythromycin base (From ERYTHROCIN) Allergy (Unknown, Verified 12/11/24 08:53) NAUSEA & VOMITING metformin Adverse Reaction (Mild, Uncoded 12/11/24 08:53) Gastrointestinal Upset HPI Comments Details: 43 y.o F with PMH of who is here for rectal bleeding and abd pain. Has been having intermittent rectal bleeding for almost 5 years. Typically with a BM. On wiping. Stool itself is brown. BMs fluctuate from constipation to diarrhea. Typically starts off as very hard BM and then gets softer as the day. Strains significantly. Can feel hemorrhoids on wiping. Also reports significant abd pain phyllis in left side. Unrelated to BMs per her report. No fam hx of colon ca in FDR. Vapes. Takes edible THC. Rare alcohol. No blood thinners. Takes NSAIDs frequently for migraines. 02/15/24: Colonoscopy 1. Cecum not visualised but remaining mucosa normal. (biopsy) 2. Total of 1 polyp removed 3. External and internal hemorrhoids with stigmata of recent bleeding Recommendations: - Follow path results. - Repeat colo at 46y.o as today's colo was not adequate for CRC screening - Bleeding likely from bleeding hemorrhoids. Anusol supp Rxed - Avoid constipation and straining A. Colon, right, biopsy: Colonic mucosa within normal limits. B. Colon, ascending, polypectomy: Colonic mucosa with mild surface hyperplastic changes; multiple additional levels examined. C. Colon, left, biopsy: Colonic mucosa within normal limits 04/29/24: Here for follow up. Reports has persistent rectal bleeding but also didnt take anusol suppositories yet. Cont to have loose stools. Results of colo reviewed. No colitis/proctitis. Bleeding likely from hemorrhoids. Labs reviewed, no anemia. Of note- pt has T2DM. Not on meds - metformin DCed due to diarrhea. Has appt with PCP later this week to discuss pharmacological management. Also has fatty liver. Pt had liver protocol MRI last week to follow up on liver lesion incidentally noted on CT abd/pel. MRI abd with and without contrast 04/26/24: 1. Hepatic steatosis. 2. Findings consistent with a 3.7 cm proteinaceous cyst in segment IV of the liver, which could be postinfectious or posttraumatic in nature. This is unchanged in size dating back to 08/16/2021. 3. 9 mm cystic structure in the body of the pancreas which may represent an IPMN. This is unchanged dating back to 08/16/2021. 06/10/24: Here as televisit. Had forgotten to discuss GLP 1 with PCP. However sugars are looking good and A1c has not worsened. LFTs are better too. Constipation and hemorrhoidal bleeding is unfortunately unchanged. Has days where she has passage of only pellets with significant straining. Has 1-2 BMs per week. Daily meds: metamucil miralax dulcolax Laboratory Tests 05/06/24 06/04/24 15:28 10:28 Hgb 15.2 13.4 Hct 43.5 39.3 Creatinine 0.63 Fasting Glucose 160 H Hemoglobin A1c % 7.0 H Iron 56 % Saturation 22 Ferritin 141 Total Bilirubin 0.2 AST 38 H 27 ALT 42 H 36 H Alkaline Phosphatase 122 H Total Protein 6.8 Albumin 3.5 LDL Cholesterol, Calc 91 HDL Cholesterol 35 L Mitochondrial AB Titer Pending 25-OH Vitamin D Total 13.7 L IgG 999 GERARDO Screen NEGATIVE Anti-Mitochondrial Ab NEGATIVE Anti-Smooth Muscle Ab <20 Tiss Transglutamin IgA <1.0 Olivia/Kid Microsom Ab Int <=20.0 Hep Bs Antibody NONREACTIVE Hep B Core Total Ab Nonreactive Hepatitis C Ab (EIA) Nonreactive HIV 1&2 Ab/P24 Ag 4thGn Nonreactive 12/11/24: Here for 6m follow up. Had hemorrhoidectomy 10/2024. Reports recovery for painful. Phyllis as still remains constipated and continues to have to strain to pass BMs. This is in spite of taking: dulcolax bid miralax 3-4 times a day linzess 290 colace daily No further bleeding however. LFTs reviewed. Unchanged from before. Laboratory Tests 10/28/24 18:32 AST 31 ALT 36 H PFSH Medical History Postoperative pain Acute respiratory disease Nausea with vomiting, unspecified Nephrolithiasis Periodic limb movements of sleep Anemia Asthma Sleep apnea Migraine Sinusitis Breast pain, left Hypertension Sleep apnea Bipolar 1 disorder Depression Anxiety delivery delivered Diabetes Sciatica Kidney infection Kidney stones HTN (hypertension) Fibromyalgia Lupus Surgical History S/P hemorrhoidectomy (10/28/24) Hx of colonoscopy History of esophagogastroduodenoscopy (EGD) H/O section H/O: hysterectomy Family History Maternal Grandmother HTN (hypertension) Diabetes Cancer Mother Ovarian cancer Other FH: mental illness Substance use Social History Household Members: Spouse Housing: Apartment Are you a primary home care coordinator to a significant other at home: No Do you presently have visiting nurse or other home services: No Alcohol intake: current Alcohol intake frequency: holidays/special occasions only Alcohol type: hard liquor Patient Tobacco Use Status: Former Tobacco user Tobacco use type: Smokeless Tobacco e-Cigarette/Vaping Use: Currently Using Substance Use Type: Marijuana Advance Directives Date on File: 02/02/24 service: No Current occupational status: employed 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 Current occupational exposures/hazards: No Cognitive needs: No Hearing needs: No Vision needs: Yes (glasses) Review of Systems Const All systems reviewed & are unremarkable except as noted in HPI and below Physical Exam Exam Exam: No apparent distress Nonicteric Abdomen soft, nondistended Alert and oriented x3, normal gait Vital Signs: Last Vital Signs Pulse 69 12/11/24 08:52 BP 138/85 12/11/24 08:52 BMI result Body Mass Index 36.3 Assessment & Plan Assessment & Plan (1) Bleeding hemorrhoids: Code(s): K64.9 - Unspecified hemorrhoids Category: Medical (2) Elevated LFTs: Code(s): R79.89 - Other specified abnormal findings of blood chemistry Category: Medical (3) Fatty liver: Code(s): K76.0 - Fatty (change of) liver, not elsewhere classified Category: Medical (4) Obesity: Code(s): E66.9 - Obesity, unspecified Category: Medical (5) Diabetes: Code(s): E11.9 - Type 2 diabetes mellitus without complications Category: Medical (6) Pancreatic cyst: Code(s): K86.2 - Cyst of pancreas Category: Medical Plan 1. Rectal bleeding 2. Constipation Rectal bleeding 2/2 hemorrhoids is now resolved. Pt reports some external swelling - seeing surgery for this and was recommend topical steroid. Main issue now is severe constipation. This is despite the bowel regimen above. Reviewed that since not effective even at the highest dose will favor switching. Amitiza selected, ideally would start with 8 mcg BID but since pt typically does not respond to lower doses will initiate 16 mcg bid with mutual decision making. She was advised to call office if develops diarrhea. No colitis, large mass noted during colonoscopy. Pt reminded that colo prep was NOT adequate for polyp detection and would recommend repeat colo at 46 y.o for screening purpose. Plan: - Stop linzess 290 - Start amitiza 16 mcg BID - Decrease miralax to once daily to avoid diarrhea - Cont fiber - Review switching amitriptyline to nortriptyline with her pcp to mitigate anti cholingergic side effects - Pt to call us for excessive diarrhea in which case amitiza will be reduced to 8 mcg BID. - MR defecography ordered - Reviewed may also need ARMS contingent on response to amitiza and results of defecography 2. Elevated LFTs Stable. Likely 2/2 fatty liver which in turn appears to be from HOLDEN as reports rare etOH use. Risk factors include obesity, T2DM, mild hyperlipidemia. Other causes such as wilsons, hemochromatosis, chronic hep, AIH r/o. Fib 4: 0.71 i.e advanced fibrosis less likely. Plan: - Repeat LFTs before next appt - reminder set - Will also check HBsAg (missed on last labs) 3. Pancreatic cyst 9 mm cyst in body of pancreas without any high risk features. Stable x3 years. Plan: - Repeat MRI in 2026 to ensure stability. Follow up 3 months Orders: Orders MR pelvis wo con Today K59.00 - Constipation, unspecified Medications: New lubiprostone (Amitiza) 16 mcg (2 x 8 mcg) PO BID 360 caps 0RF 90 days Coding Level of Care Code Est Pt Level 4 (83874) Diagnoses Bleeding hemorrhoids K64.9 Elevated LFTs R79.89 Fatty liver K76.0 Obesity E66.9 Diabetes E11.9 Pancreatic cyst K86.2
[2024-12-11 08:52] VITALS: BP 138/85; PULSE 69; BMI 36.3
--- OUTSIDE RECORDS SUMMARY | 2024-12-11 08:56 | XMS_ITS | Clinical Summary ---
Demographics Address [address] [place] [address] [address] [place] [address] Home Phone Preferred Language en Marital Status Temple Affiliation Unknown Race White Ethnic Group Not or Lati no Author Organization [facility] Address [address] [place] [address] Care Team Providers Care Frozen Foods Manager Name Role Phone Unavailable Primary Care Provider [...] Screening: P ap Smear 2002 Depression Screening 04/10/2024 COVID-19 Vaccine ( - 2023-2 5 season) 2024 Influenza Vaccine (#1) 2024 HIB Vaccines Aged Out No longer [...] 5 Years) and At-Risk Patients (6 to 49 Years) Aged Out No longer eligible b ased on patient's age to complete this topic RSV Immunization Patients Un nohemi 20 months Aged Out No longer eligible b ased on patient's age to complete this topic Varicella Vaccines Aged Out No longer eligible based on patient's age to complete this topic Advance Directives Documents on File Type Date Recorded Patient Ditching Machine Operating Engineer Expl anation Health Care Decision (hx) 07/09/2016 AD JOHNNIE DIRECTIVE
--- OUTSIDE RECORDS SUMMARY | 2024-12-11 08:56 | XMS_ITS | Encounter Summary ---
Author Organization [facility] Address [address] [place] [address] Phone Care Team Providers Care Fagot Maker Name Role Phone Minerva Ferrara BARKING MACHINE FEEDER Primary Care Provider Encounter Details Date Type Department Care Team ([facility] st Contact Info) Description 08/27/2024 Telephone [facility] Pulmonary, Allergy and Critical Care Medicine [address] [facility] [place], [place] [id number] Cathy [email or web address] Social History Tobacco Use Types Packs/Day Years [...] on filedocumented in this encounter Care Teams Fagot Maker Relationship Specialty Start Date End Date Minerva Ferrara NP [address] [place] [address] [place] [address] [email or web address] PCP - General Nurse Practitioner 09/26/23 documented as of this encounter Additional Source Comments The information contained in this document represents components of the legal health record. It is not the complete legal health record.[facility]
--- OUTSIDE RECORDS SUMMARY | 2024-12-11 08:56 | XMS_ITS | Encounter Summary ---
Author Organization [facility] Address [address] [place] [address] Phone Care Team Providers Care Dial Screw Assembler Name Role Phone Thu Gallardo FAMILY AND CONSUMER EDUCATION TEACHER Primary Care Provider + Minerva Ferrara FAMILY AND CONSUMER EDUCATION TEACHER Primary Care Provider Encounter Details Date Type Department Care Team (Late st Contact Info) Description 10/10/2020 Procedure Pass [facility] [address] [place] [address] Social History Tobacco Use Types Packs/Day Years [...] 10:00 PM EDT Dara Perez RN * [place] Suicide Severity Rating Scale (Screener/Recent Self-Report) Question [...] on filedocumented in this encounter Care Teams Dial Screw Assembler Relationship Specialty Start Date End Date Thu Gallardo [facility] [place] [address] PCP - General Nurse Practitioner 10/10/20 09/25/23 Minerva Ferrara NP [address] [place] [address] [place] [address] [email or web address] PCP - General Nurse Practitioner 09/26/23 documented as of this encounter Additional Source Comments The information contained in this document represents components of the legal health record. It is not the complete legal health record.[facility]
--- OUTSIDE RECORDS SUMMARY | 2024-12-11 08:56 | XMS_ITS | Encounter Summary ---
Author Organization [facility] Address [address] [place] [address] Phone Care Team Providers Care Call Person Name Role Phone Thu Gallardo POLITICAL RESEARCH SCIENTIST Primary Care Provider + Minerva Ferrara POLITICAL RESEARCH SCIENTIST Primary Care Provider Encounter Details Date Type Department Care Team (Late st Contact Info) Description 10/10/2020 Procedure Pass [facility], Ct Scan - [facility] [address] [place] [address] Social History Tobacco Use Types Packs/Day Years [...] 10:00 PM EDT Dara Perez, RACHELE * [place] Suicide Severity Rating Scale (Screener/Recent Self-Report) Question [...] on filedocumented in this encounter Care Teams Call Person Relationship Specialty Start Date End Date Thu Gallardo NP [address] [place] [address] PCP - General Nurse Practitioner 10/10/20 09/25/23 Minerva Ferrara NP [address] [place] [address] [place] [address] [email or web address] PCP - General Nurse Practitioner 09/26/23 documented as of this encounter Additional Source Comments The information contained in this document represents components of the legal health record. It is not the complete legal health record.[facility]
--- OUTSIDE RECORDS SUMMARY | 2024-12-11 08:56 | XMS_ITS | Encounter Summary ---
Author Organization [facility] Address [address] [place] [address] Phone Care Team Providers Care Press Operator Automatic Name Role Phone Thu Gallardo OLD TESTAMENT PROFESSOR Primary Care Provider + Minerva Ferrara OLD TESTAMENT PROFESSOR Primary Care Provider Encounter Details Date Type Department Care Team (Late st Contact Info) Description 10/10/2020 Procedure Pass [facility], Ct Scan - [facility] 30 [place] [address] Social History Tobacco Use Types Packs/Day Years [...] 10:00 PM EDT Dara Perez, RACHELE * [place] Suicide Severity Rating Scale (Screener/Recent Self-Report) Question [...] on filedocumented in this encounter Care Teams Press Operator Automatic Relationship Specialty Start Date End Date Thu Gallardo NP [address] [place] [address] PCP - General Nurse Practitioner 10/10/20 09/25/23 Minerva Ferrara NP [address] [place] [address] [place] [address] [email or web address] PCP - General Nurse Practitioner 09/26/23 documented as of this encounter Additional Source Comments The information contained in this document represents components of the legal health record. It is not the complete legal health record.[facility]
--- OUTSIDE RECORDS SUMMARY | 2024-12-11 08:57 | XMS_ITS | Clinical Summary ---
Demographics Address [address] [place] [address] [address] [place] [address] Home Phone Mobile Phone Email Address .Bravofly Preferred Language Rwandan Marital Status /Civil Union Christian Affiliation Unknown Race White Ethnic Group Not or Lati no Author Organization [facility] Address [address] [place] [address] Phone Care Team Providers Care Termite Helper Name Role Phone Minerva Ferrara TREE SCOUT Primary Care Provider Allergies Active Allergy Reactions [...] numbness MRI and echocardiogram without acute findings, [facility] neurologist feels this may be migraine and [...] EDT) SODIUM 139 133 - 146 mmol/L [facility] CHLORIDE 105 96 - 108 mmol/L [facility] POTASSIUM 3.5 3.3 - 5.1 mmol/L [facility] CO2 25 21 - 35 mmol/L [facility] BUN 11 6 - 19 mg/dL [facility] CREATININE 0.60 0.5 - 1.5 mg/dL [facility] GLUCOSE 139(H) 70 - 99 mg/dL [facility] CALCIUM 8.3(L) 8.4 - 10.3 mg/dL [facility] EGFR 116 >59 mL/min/1.7 3m2 [facility] Comment:Estimated glomerular filtration rate calculated using the CKD-EPI equation. ANION GAP 13 10 - 20 mmol/L [facility] Blood 10/12/2020 6:17 AM EDT 10/12/2020 6:23 AM EDT us Aileen Wright TREE SCOUT LAB BLOOD ORDERABLES Fi nal Result Performing Organization Address [facility]/ZIP Co de Phone Number [address] [address] * (ABNORMAL) Hemoglobin A1c (10/11/2020 5:42 AM EDT) HEMOGLOBIN A1C 7.3(H) 4.3 - 5.8 % [facility] Blood 10/11/2020 5:42 AM EDT 10/11/2020 6:20 AM EDT Aileen Mayerance TREE SCOUT LAB BLOOD ORDERABLES Fi nal Result Performing Organization Address City/[facility]/ZIP Co de Phone Number [address] [address] * (ABNORMAL) Lipid panel (10/11/2020 5:42 AM EDT) HDL 28 mg/dL [facility] Comment: Interpretation <40 mg/dL: Low HDL cholesterol (major risk factor for CHD) Greater than or equal to 60 mg/dL: High HDL cholesterol ( negative risk factor for CHD) HDL - cholesterol is affected by a number of factors, e.g. smoking, excerise, hormones, sex and age. CHOLESTEROL 127 0 - 240 mg/dL [facility] TRIGLYCERIDES 140 30 - 160 mg/dL [facility] LDL 71 50 - 129 mg/dL [facility] Comment: LDL levels in terms of risk for coronary heart disease: <100 mg/dL: Optimal 100-129 mg/dL: Near or above optimal 130-159 mg/dL: Borderline high 160-189 mg/dL: High >190 mg/dL: Very High CARDIAC RISK RATIO 4.5(H) 3.3 - 4.4 C [facility] Blood 10/11/2020 5:42 AM EDT 10/11/2020 6:20 AM EDT us iAleen Wright NP LAB BLOOD ORDERABLES nal Result [facility] 30 [place] [address] from Last 3 Months or Most Recently Relevant to Health Maintenance Insurance * Guarantor: Linda Martinez Account Type Relation to Patient Date of Phone Billing Address Personal/Family Self [address] [place] [address] [facility] [employer] [facility] [employer] [facility] [employer] [address] [place] [address] [facility] [employer] [facility] [employer] [address], [place] [id number] [place] [address] TOGETHER [employer] Advance Directives For more information, please contact: [phone] (9AM - 5PM [facility], Monday-Monday) Documents on File Type Date Recorded Patient Computer Programmer Analyst Expl anation Healthcare Proxy 2020 2:16 PM * Full Code (Latest Code Status on File) Date Activated Date Inactivated Comments 10/10/2020 6:09 PM Question Answer Comments Code Status Confirmed With: Patient Care Teams Termite Helper Relationship Specialty Start Date End Date Minerva Ferrara NP [address] [place] [address] [place] [address] [email or web address] PCP - General Nurse Practitioner 09/26/23 Additional Source Comments The information contained in this document represents components of the legal health record. It is not the complete legal health record.[facility]
--- OUTSIDE RECORDS SUMMARY | 2024-12-11 08:57 | XMS_ITS | Encounter Summary ---
Author Organization [facility] Address [address] [place] [address] Phone Care Team Providers Care Golf Course Mechanic Name Role Phone Thu Gallardo HOTEL RESERVATION AGENT Primary Care Provider + Minerva Ferrara HOTEL RESERVATION AGENT Primary Care Provider Encounter Details Date Type Department Care Team (Late st Contact Info) Description 10/10/2020 Procedure Pass [facility], [facility] [address] [place] [address] Social History Tobacco Use Types Packs/Day Years [...] 10:00 PM EDT Dara Perez, RACHELE * [place] Suicide Severity Rating Scale (Screener/Recent Self-Report) Question [...] on filedocumented in this encounter Care Teams Golf Course Mechanic Relationship Specialty Start Date End Date Thu Gallardo NP [address] [place] [address] PCP - General Nurse Practitioner 10/10/20 09/25/23 Minerva Ferrara NP [address] [place] [address] [place] [address] [email or web address] PCP - General Nurse Practitioner 09/26/23 documented as of this encounter Additional Source Comments The information contained in this document represents components of the legal health record. It is not the complete legal health record.[facility]
== END 2024-12-11 09:36 | disposition home or self-care (01) ==
LOC: HO.HGI 08:30
PROVIDERS: PCP Nurse Practitioner Family; Visit Provider Internal Medicine
DX: K64.9 Unspecified hemorrhoids (principal); R79.89 Other specified abnormal findings of blood chemistry; K76.0 Fatty (change of) liver, not elsewhere classified; E66.9 Obesity, unspecified; E11.9 Type 2 diabetes mellitus without complications; K86.2 Cyst of pancreas
CPT/HCPCS: 99214

== ENCOUNTER → 2024-12-11 08:29 | Outpatient (BNVA) | payer OTHER, SELFPAY | PROVIDERS: PCP Nurse Practitioner Family; Visit Provider Internal Medicine | DX: E11.9 Type 2 diabetes mellitus without complications (principal); K64.9 Unspecified hemorrhoids; R79.89 Other specified abnormal findings of blood chemistry; K76.0 Fatty (change of) liver, not elsewhere classified; E66.9 Obesity, unspecified; K86.2 Cyst of pancreas | CPT/HCPCS: 99212 ==

== ENCOUNTER 2024-12-18 12:55 | Outpatient (REF) | payer OTHER, SELFPAY ==
[2024-12-18 13:10] LABS: MANUAL DIFF FLAG NO
[2024-12-18 14:03] LABS: Hematocrit 39.3 % (37.0-47.0); Hemoglobin 13.5 g/dl (12.0-16.0); Imm Gran Abs Auto 0.03 X10*3/uL (0.00-0.03); Imm Gran Pct Auto 0.4 % (0.0-0.4); Lymphocytes Absolute Auto 1.8 X10*3/uL (1.2-4.9); Mean Corpuscular HGB Conc 34.4 g/dl (31.0-35.0); Mean Corpuscular Hemoglobin 29.3 pg (27.0-33.0); Mean Corpuscular Volume 85.4 fL (80.0-98.0); NRBC Abs Auto 0.000 X10*3/uL (0.0-0.012); NRBC Pct Auto 0.0 /100WBC (0.0-0.2); Platelet Count 278 X10*3/uL (160-400); Red Blood Count 4.60 X10*6/uL (4.20-5.50); White Blood Count 8.2 X10*3/uL (4.8-10.8)
[2024-12-18 14:09] LABS: Hemoglobin A1C 221.2718 umol/L; Total Hemoglobin (HGBA1C) 3481.0035 umol/L
[2024-12-18 14:45] LABS: Alanine Aminotransferase 40 U/L (0-31); Albumin Level 3.9 g/dL (3.5-5.0); Alkaline Phosphatase 116 U/L (39-117); Anion Gap 11 (12-20); Aspartate Amino Transferase 44 U/L (5-31); Blood Urea Nitrogen 18 mg/dL (9-16); Calcium 8.4 mg/dL (8.4-10.2); Carbon Dioxide 25 mmol/L (22-29); Chloride 107 mmol/L (96-108); Cholesterol 124 mg/dL (<200); Estimated Glomerular Filt Rate > 60; HDL Cholesterol 32 mg/dL (>40); Potassium 3.9 mmol/L (3.3-5.1); Sodium 139 mmol/L (135-145); Total Protein 6.8 g/dL (6.5-8.0); Triglycerides 101 mg/dL (<150)
[2024-12-18 14:53] LABS: Microalbum/Creatinine Ratio Ur 73.8 ug/mg cr (<30)
[2024-12-18 15:02] LABS: Folate 3.5 ng/mL (> or = 4.0); Vitamin B12 416 pg/mL (200-900)
--- OUTSIDE RECORDS SUMMARY | 2024-12-18 15:56 | XMS_ITS | Encounter Summary ---
Author Organization [facility] Address [address] [place] [address] [place] [address] Phone Care Team Providers Care Farm Adviser Name Role Phone Thu Gallardo HARBOR PATROL POLICE Primary Care Provider + Minerva Ferrara HARBOR PATROL POLICE Primary Care Provider Encounter Details Date Type Department Care Team (Late st Contact Info) Description 10/10/2020 Procedure Pass [facility], Ct Scan - [facility] 30 [place] [address] Social History Tobacco Use Types Packs/Day Years [...] 10:00 PM EDT Dara Perez, RACHELE * [place] Suicide Severity Rating Scale (Screener/Recent Self-Report) Question Answer Date of Assessment Author 1. Wish to be (Past 1 Month) No 10/10/2020 10:00 PM EDT Blake Holland, RACHELE 2. Non-Specific Active Suici rekha Thoughts (Past 1 Month) No 10/10/2020 10:00 PM EDT Dara Holland, RACHELE 6. Suicidal Behavior (Lifetime) No 10:00 PM EDT Dara Holland RN documented as of this encounter Plan of Treatment Upcoming Encounters Date Type Department Care Team (Late st Contact Info) Description 12/24/2024 11:00 AM EDT Office Visit [facility] Rheumatology [address] [place] [address] Yancy Hutchinson MD [address] [facility], [address] [place] [address] [email or web address] documented as of this encounter Visit Diagnoses Not on filedocumented in this encounter Care Teams Farm Adviser Relationship Specialty Start Date End Date Thu Gallardo NP [address] [place] [address] PCP - General Nurse Practitioner 10/10/20 09/25/23 Minerva Ferrara NP [address] [place] [address] [place] [address] [email or web address] PCP - General Nurse Practitioner 09/26/23 documented as of this encounter Additional Source Comments The information contained in this document represents components of the legal health record. It is not the complete legal health record.[facility]
--- OUTSIDE RECORDS SUMMARY | 2024-12-18 15:56 | XMS_ITS | Clinical Summary ---
Demographics Address [address] [place] [address] [address] [place] [address] Home Phone Preferred Language en Marital Status Evangelical Affiliation Unknown Race White Ethnic Group Not or Lati no Author Organization [facility] Address [address] [place] [address] Care Team Providers Care Dog Track Kennel Manager Name Role Phone Unavailable Primary Care [...] Documents on File Type Date Recorded Patient Professor Of Business Administration Expl anation Health Care Decision (hx) 07/09/2016 AD JOHNNIE DIRECTIVE
--- OUTSIDE RECORDS SUMMARY | 2024-12-18 15:56 | XMS_ITS | Encounter Summary ---
Author Organization [facility] Address [address] [place] [address] Phone Care Team Providers Care Police Shift Commander Name Role Phone Thu Gallardo SYNTHETIC CLOTH BINDING CUTTER Primary Care Provider + Minerva Ferrara SYNTHETIC CLOTH BINDING CUTTER Primary Care Provider Encounter Details Date Type Department Care Team (Late st Contact Info) Description 10/10/2020 Procedure Pass [facility] [address] [place] [address] Social History Tobacco Use Types Packs/Day Years [...] 10:00 PM EDT Dara Perez RN * [place] Suicide Severity Rating Scale (Screener/Recent Self-Report) Question Answer Date of Assessment Author 1. Wish to be (Past 1 Month) No 10/10/2020 10:00 PM EDT Blake Holland, RACHELE 2. Non-Specific Active Suici rekha Thoughts (Past 1 Month) No 10/10/2020 10:00 PM EDT Dara Holland, RACHELE 6. Suicidal Behavior (Lifetime) No 1 10:00 PM EDT Dara Holland RN documented as of this encounter Plan of Treatment Upcoming Encounters Date Type Department Care Team (Late st Contact Info) Description 12/24/2024 11:00 AM EDT Office Visit [facility] Rheumatology [address] [place] [address] Yancy Hutchinson MD [address] [facility], [address] [place] [address] [email or web address] documented as of this encounter Visit Diagnoses Not on filedocumented in this encounter Care Teams Police Shift Commander Relationship Specialty Start Date End Date Thu Gallardo NP [address] [place] [address] PCP - General Nurse Practitioner 10/10/20 09/25/23 Minerva Ferrara NP [address] [place] [address] [facility] [place] [address] [email or web address] PCP - General Nurse Practitioner 09/26/23 documented as of this encounter Additional Source Comments The information contained in this document represents components of the legal health record. It is not the complete legal health record.[facility]
--- OUTSIDE RECORDS SUMMARY | 2024-12-18 15:56 | XMS_ITS | Clinical Summary ---
Demographics Address [address] [place] [address] [address] [place] [address] Home Phone Mobile Phone Email Address [email or web address] [place] Preferred Language Serbian Marital Status /Civil Union Christian Affiliation Unknown Race White Ethnic Group Not or Lati no Author Organization [facility] Address [address] [place] [address] Phone Care Team Providers Care Engine Service Repairer Name Role Phone Minerva Ferrara WOUND CARE RN Primary Care Provider Allergies Active Allergy Reactions [...] numbness MRI and echocardiogram without acute findings, [facility] neurologist feels this may be migraine and [...] 01/17/2021 6:54 PM EDT Plan of Treatment Upcoming Encounters Date Type Department Care Team (Late st Contact Info) Description 12/24/2024 11:00 AM EDT [facility] Rhe[facility] [address] [place] [address] Yancy Hutchinson MD 22 [facility], [address] [place] [address] [email or web address] Health Maintenance Due Date Last Done Comments [...] LEVEL 10/12/2021 10/12/2020, 10/11/2020, 10/10/2020 MAMMOGRAM 2021 INFLUENZA VACCINE (#1) 2024 COVID-19 VACCINE (2 - 2024-2 6 season) 2024 08/14/2020 Adult Td,Tdap Booster 01/17/2031 01/17/2021 HEPATITIS [...] EDT) SODIUM 139 133 - 146 mmol/L [facility] CHLORIDE 105 96 - 108 mmol/L [facility] POTASSIUM 3.5 3.3 - 5.1 mmol/L [facility] CO2 25 21 - 35 mmol/L [facility] BUN 11 6 - 19 mg/dL [facility] CREATININE 0.60 0.5 - 1.5 mg/dL [facility] GLUCOSE 139(H) 70 - 99 mg/dL [facility] CALCIUM 8.3(L) 8.4 - 10.3 mg/dL [facility] EGFR 116 >59 mL/min/1.7 3m2 [facility] Comment:Estimated glomerular filtration rate calculated using the CKD-EPI equation. ANION GAP 13 10 - 20 mmol/L [facility] Blood 10/12/2020 6:17 AM EDT 10/12/2020 6:23 AM EDT us Aileen Wright NP LAB BLOOD ORDERABLES Fi nal Result [facility] [address] [place] [address] * (ABNORMAL) Hemoglobin A1c (10/11/2020 5:42 AM EDT) HEMOGLOBIN A1C 7.3(H) 4.3 - 5.8 % [facility] Blood 10/11/2020 5:42 AM EDT 10/11/2020 6:20 AM EDT us Aileen Wright WOUND CARE RN LAB BLOOD ORDERABLES Fi nal Result Performing Organization Address [facility]/ZIP Co de Phone Number [address] [address] * (ABNORMAL) Lipid panel (10/11/2020 5:42 AM EDT) HDL 28 mg/dL [facility] Comment: Interpretation <40 mg/dL: Low HDL cholesterol (major risk factor for CHD) Greater than or equal to 60 mg/dL: High HDL cholesterol ( negative risk factor for CHD) HDL - cholesterol is affected by a number of factors, e.g. smoking, excerise, hormones, sex and age. CHOLESTEROL 127 0 - 240 mg/dL [facility] TRIGLYCERIDES 140 30 - 160 mg/dL [facility] LDL 71 50 - 129 mg/dL [facility] Comment: LDL levels in terms of risk for coronary heart disease: <100 mg/dL: Optimal 100-129 mg/dL: Near or above optimal 130-159 mg/dL: Borderline high 160-189 mg/dL: High >190 mg/dL: Very High CARDIAC RISK RATIO 4.5(H) 3.3 - 4.4 C [facility] Blood 10/11/2020 5:42 AM EDT 10/11/2020 6:20 AM EDT us Aileen Wright NP LAB BLOOD ORDERABLES Fi nal Result Performing Organization Address [facility]/ZIP Co de Phone Number [address] [address] from Last 3 Months or Most Recently Relevant to Health Maintenance Insurance * Guarantor: Linda Martinez Account Type Relation to Patient Date of Phone Billing Address Personal/Family Self [address] [place] [address] [facility] [address], [place] [address] [facility] [address], [place] [facility] e [address], [place] [address] Advance Directives For more information, please contact: [phone] (9AM - 5PM [facility], Monday-Monday) Documents on File Type Date Recorded Patient Tool Operator Expl anation Healthcare Proxy 2020 2:16 PM * Full Code (Latest Code Status on File) Date Activated Date Inactivated Comments 10/10/2020 6:09 PM Question Answer Comments Code Status Confirmed With: Patient Care Teams Engine Service Repairer Relationship Specialty Start Date End Date Minerva Ferrara NP [address] [place] [address] [place] [address] [email or web address] PCP - General Nurse Practitioner 09/26/23 Additional Source Comments The information contained in this document represents components of the legal health record. It is not the complete legal health record.[facility]
--- OUTSIDE RECORDS SUMMARY | 2024-12-18 15:56 | XMS_ITS | Encounter Summary ---
Author Organization [facility] Address [address] [place] [address] Phone Care Team Providers Care Leasing Consultant Name Role Phone Minerva Ferrara HIDE AND SKIN COLERER Primary Care Provider Encounter Details Date Type Department Care Team (Late st Contact Info) Description 08/27/2024 Telephone [facility] Pulmonary, Allergy and Critical Care Medicine [address] [place], [place] [id number] Cathy [email or web address] Social History Tobacco Use Types Packs/Day Years [...] Encounters Date Type Department Care Team (Late Contact Info) Description 12/24/2024 11:00 AM EDT Office Visit [facility] Rheumatology [address] [place] [address] Yancy Hutchinson MD 22 [facility], [address] [place] [address] [email or web address] documented as of this encounter Visit Diagnoses Not on filedocumented in this encounter Care Teams Leasing Consultant Relationship Specialty Start Date End Date Minerva Ferrara NP [address] [place] [address] [facility] [place] [address] [email or web address] PCP - General Nurse Practitioner 09/26/23 documented as of this encounter Additional Source Comments The information contained in this document represents components of the legal health record. It is not the complete legal health record.[facility]
--- OUTSIDE RECORDS SUMMARY | 2024-12-18 15:56 | XMS_ITS | Encounter Summary ---
Author Organization [facility] Address [address] [place] [address] Phone Care Team Providers Care Installer Molding And Trim Name Role Phone Thu Gallardo METAL HARDENER Primary Care Provider + Minerva Ferrara METAL HARDENER Primary Care Provider Encounter Details Date Type Department Care Team (Late st Contact Info) Description 10/10/2020 Procedure Pass [facility], [facility] [address] [place] [address] Social History Tobacco Use Types Packs/Day Years [...] 10:00 PM EDT Dara Perez, RACHELE * [place] Suicide Severity Rating Scale (Screener/Recent Self-Report) Question [...] Description 12/24/2024 11:00 AM EDT Office Visit [facility] Rheumatology [address] [place] [address] Yancy Hutchinson MD 22 [facility], [address] [place] [address] [email or web address] documented as of this encounter Visit Diagnoses Not on filedocumented in this encounter Care Teams Installer Molding And Trim Relationship Specialty Start Date End Date Thu Gallardo NP [address] [place] [address] PCP - General Nurse Practitioner 10/10/20 09/25/23 Minerva Ferrara NP [address] [place] [address] [place] [address] [email or web address] PCP - General Nurse Practitioner 09/26/23 documented as of this encounter Additional Source Comments The information contained in this document represents components of the legal health record. It is not the complete legal health record.[facility]
--- OUTSIDE RECORDS SUMMARY | 2024-12-18 15:56 | XMS_ITS | Encounter Summary ---
Author Organization [facility] Address [address] [place] [address] [place] [phone] Phone Care Team Providers Care Bottom Liquor Attendant Name Role Phone Thu Gallardo [employer] Primary Care Provider + Minerva Ferrara [employer] Primary Care Provider Encounter Details Date Type Department Care Team (Late st Contact Info) Description 10/10/2020 Procedure Pass [facility], Ct Scan - [facility] [address] [place] [address] Social History Tobacco Use Types Packs/Day Years [...] 10:00 PM EDT Dara Perez, RACHELE * Phillips Suicide Severity Rating Scale (Screener/Recent Self-Report) Question [...] Description 12/24/2024 11:00 AM EDT Office Visit [facility] Rheumatology [address] [place] [address] Yancy Hutchinson MD [address] [facility], [address] [place] [address] [email or web address] documented as of this encounter Visit Diagnoses Not on filedocumented in this encounter Care Teams Bottom Liquor Attendant Relationship Specialty Start Date End Date Thu Gallardo NP [address] [place] [id number] PCP - General Nurse Practitioner 10/10/20 09/25/23 Minerva Ferrara NP [address] [place] [address] [place] [address] [email or web address] PCP - General Nurse Practitioner 09/26/23 documented as of this encounter Additional Source Comments The information contained in this document represents components of the legal health record. It is not the complete legal health record.[facility]
[2024-12-19 07:59] LABS: HBsAGNum1 0.35 S/CO (0.00-0.99); Hepatitis B Surface Antigen Negative (Negative)
== END 2024-12-18 12:56 | disposition home or self-care (01) ==
LOC: HO.LAB 12:55
PROVIDERS: Absent Provider Nurse Practitioner Family; PCP Nurse Practitioner Family; Visit Provider Internal Medicine
DX: Z00.00 Encounter for general adult medical examination without abnormal findings (principal); K76.0 Fatty (change of) liver, not elsewhere classified; K64.9 Unspecified hemorrhoids
CPT/HCPCS: 36415; 80053; 80061; 80076; 82043; 82248; 82306; 82570; 82607; 82746; 83036; 84443; 85025; 87340

== ENCOUNTER 2024-12-25 14:30 | Outpatient (AMB) | payer OTHER, SELFPAY ==
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
--- NOTE | 2024-12-25 14:32 | MHC.PC.OV ---
Intake Visit Reasons: review lab results Intake Note: Telehealth to review labs Senior Back End Java Developer Required: No Allergies hydrocodone (From VICODIN) Allergy (Mild, Verified 12/25/24 14:32) HIVES oxycodone (From PERCOCET) Allergy (Mild, Verified 12/25/24 14:32) HIVES azithromycin (AZITHROMYCIN) Allergy (Unknown, Verified 12/25/24 14:32) NAUSEA & VOMITING erythromycin base (From ERYTHROCIN) Allergy (Unknown, Verified 12/25/24 14:32) NAUSEA & VOMITING metformin Adverse Reaction (Mild, Uncoded 12/25/24 14:32) Gastrointestinal Upset Medication List - Last Reconciled 12/25/24 by Minerva Zuleta, CEMENT FINISHER HELPER- acetaminophen (Tylenol Extra Strength) 1,000 mg (2 x 500 mg) PO Q8H PRN albuterol sulfate 90 mcg/actuation 2 puffs inhalation Q4-6H PRN amitriptyline 50 mg PO BEDTIME atorvastatin 10 mg PO BEDTIME blood sugar diagnostic (FreeStyle Lite Strips) twice per day blood-glucose meter (FreeStyle [place] Lite kit) As directed bupropion HCl XL 300 mg PO DAILY cephalexin 500 mg PO Q6H cholecalciferol (vitamin D3) 50 mcg PO DAILY docusate sodium (Colace) 100 mg PO BID 30 days gabapentin 100 - 400 mg (1 - 4 x 100 mg) PO BEDTIME 30 days hydrocortisone 2.5% [address] BID-QID PRN lidocaine 5% 1 patch topical DAILY PRN lisinopril 5 mg PO DAILY lorazepam (Ativan) 0.5 mg PO BID PRN lubiprostone (Amitiza) 16 mcg (2 x 8 mcg) PO BID 90 days meloxicam 15 mg PO DAILY PRN 30 days menthol-zinc oxide 0.44-20.6 % (Calmoseptine) 1 appl topical QID PRN metoprolol tartrate 25 mg PO DAILY omeprazole 40 mg PO BID@0630,1630 ondansetron 4 mg PO Q8H PRN 5 days sumatriptan succinate (Imitrex) 100 mg PO DAILY PRN Tobacco use date assessed: 12/04/24 Dental Screening Dental Screen Date: 12/04/24 HPI HPI Comments History of Present Illness Details 44-year-old female with diabetes 2, asthma, anxiety, MDD, constipation, bipolar 1 disorder, sleep apnea, renal stones, PTSD, lupus, hypertension, fibromyalgia, 3.6 cm hypodense lesion in the liver at the junction of the right and left hepatic lobes with thin rim calcification along the right lateral wall of the lesion, CAD, Small fat-containing anterior midline hernia , diverticulosis, fatty liver, splenomegaly, osteoarthritis multiple joints, vitamin d def, fhx colon ca (Mom age 59) Status post hysterectomy, hernia repair, 10/[address] Garcia Fhx: Mom colon CA dx 59 Social: , has children, 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 Cecum not visualised but remaining mucosa normal. (biopsy), Total of 1 polyp removed, External and internal hemorrhoids with stigmata of recent bleeding, diverticulosis Recommendations: - Follow path results. - Repeat colo at 46y.o as today's colo was not adequate for CRC screening Mammo 11/2024 - surgical consult needed. Specialist Urology Breast Specialist Neuro Sleep Medicine Counselor/Nurse [facility] Op[facility] - 02/2024 [facility] Eye exam neg; + cataracts History of Present Illness - The patient is a 44-year-old female presenting with uncontrolled Type 2 Diabetes Mellitus. - HbA1c increased from 7% to 8%; experiences sugar spikes at work. - Noted difficulty with prior metformin due to GI upset. Did not try ER version. - Recent labs show normal anemia markers but high blood sugar, hyperlipidemia, folate deficiency, and worsening microalbuminuria. Admits poor diet r/t stress and post-op recovery. On ACEI and Statin - Denies alcohol use for pain or mood management. - Saw orthoma - mri in the works pending insurance - met with rhuem at [facility]; will be having labs. Review of Systems - Endocrine: Reports elevated blood sugar levels; history of diabetes. - Gastrointestinal: History of gastrointestinal upset with metformin use. - Renal: Reports kidney stress based on labs. - Lifestyle: Denies chronic alcohol use; occasional indulgence in date nights. Physical Exam Limited physical exam was conducted Awake alert NAD Speaking in full sentences Engaging, appropriate Mood and affect appropriate Results - Labs: HbA1c increased to 8%, electrolytes normal, kidney function normal, cholesterol elevated, and folate deficiency diagnosed. See below. Assessment and Plan 1. Type 2 Diabetes Mellitus - Prescribe metformin XR; initial 1000 mg/day x 2 weeks, increase to 2000 mg/day. 2. Folate Deficiency - Start folic acid 1 mg daily. 3. Hyperlipidemia - Maintain atorvastatin; monitor future needs. 4. Chronic Kidney Disease - Continue lisinopril for renal protection. Repeat labs before next visit 03/2025; [facility] care w/ care team. Patient was given time to ask questions. All questions were answered to their satisfaction. Telehealth Attestation This visit was conducted via telehealth. I attest that the documentation is based on a real-time interaction with the patient and is accurate to the best of my knowledge. The patient has been explained that this is an interactive (audio/video) telehealth encounter and what that consists of. The patient understands and wishes to proceed. [employer] platform was used. Total time spent caring for the patient today was 31 minutes. This includes time spent before the visit reviewing the chart, time spent during the visit, and time spent after the visit on documentation, reviewing laboratory results, diagnostic imaging, medications, performing a medically necessary evaluation, counseling on diagnoses, care coordination, ordering appropriate tests, ordering appropriate medications, review of tests performed by other providers, reporting test results with the patient, communication with other healthcare providers. [facility] Medical History Postoperative pain Acute respiratory disease Nausea with vomiting, unspecified Nephrolithiasis Periodic limb movements of sleep Anemia Asthma Sleep apnea Migraine Sinusitis Breast pain, left Hypertension Sleep apnea Bipolar 1 disorder Depression Anxiety delivery delivered Diabetes Sciatica Kidney infection Kidney stones HTN (hypertension) Fibromyalgia Lupus Surgical History S/P hemorrhoidectomy (10/28/24) Hx of colonoscopy History of esophagogastroduodenoscopy (EGD) H/O section H/O: hysterectomy Family History Maternal Grandmother HTN (hypertension) Diabetes Cancer Mother Ovarian cancer Other FH: mental illness Substance use Social History Household Members: Spouse Housing: Apartment Are you a primary ambulatory care coordinator to a significant other at home: No Do you presently have visiting nurse or other home services: No Alcohol intake: current Alcohol intake frequency: holidays/special occasions only Alcohol type: hard liquor Patient Tobacco Use Status: Former Tobacco user Tobacco use type: Smokeless Tobacco e-Cigarette/Vaping Use: Currently Using Substance Use Type: Marijuana Advance Directives Date on File: 02/02/24 service: No Current occupational status: employed 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 Rob Parry, Tana Rowley, Gen Mcdonald and colleagues, with an educational ezra from [employer]. Physical exam (Primary Care) Tobacco/Smoking Status: Tobacco use Status Tobacco use date assessed 12/04/24 12/25/24 14:33 Patient Tobacco Use Status Former Tobacco user 12/25/24 14:33 Tobacco use type Smokeless Tobacco 12/25/24 14:33 e-Cigarette/Vaping Use Currently Using 12/25/24 14:33 Thrive Assessment: Date of Thrive Assessment Date Thrive assessed 04/26/24 12/25/24 14:33 Telehealth Telehealth Telehealth Platform: [facility] Location of provider rendering services: practice address Location of patient: address on file Patient Identification confirmed using: Name, : Yes Telehealth method: voice only Patient verbally consented to treatment: Yes Patient verbally consented to billing insurance company: Yes Patient informed of any privacy concerns related to visit: Yes Minutes spent on Phone/Video with Pt.: 12 Results Reviewed Results Reviewed: Laboratory 12/18/24 Result Units Range Interpretation Provider Comments Sodium Level 139 mmol/L (135-145) Potassium Level 3.9 mmol/L (3.3-5.1) Chloride Level 107 mmol/L (96-108) Carbon Dioxide Level 25 mmol/L (22-29) Anion Gap 11 (12-20) Low Blood Urea Nitrogen 18 mg/dL (9-16) High Creatinine 0.72 mg/dL (0.5-1.4) Estimated Creatinine Clearance Calc Not Reportable Estimat Glomerular Filtration Rate > 60 Random Glucose 177 mg/dL (60-115) High Estimated Average Glucose 183 mg/dL Hemoglobin A1c Percent 8.0 % (<6.0) High Calcium Level 8.4 mg/dL (8.4-10.2) Total Bilirubin 0.2 mg/dL (0.0-1.0) Aspartate Amino Transf (AST/SGOT) 44 U/L (5-31) High Alanine Aminotransferase (ALT/SGPT) 40 U/L (0-31) High Alkaline Phosphatase 116 U/L (39-117) Total Protein 6.8 g/dL (6.5-8.0) Albumin 3.9 g/dL (3.5-5.0) Triglycerides Level 101 mg/dL (<150) Cholesterol Level 124 mg/dL (<200) LDL Cholesterol, Calculated 72 mg/dL (<100) HDL Cholesterol 32 mg/dL (>40) Low Vitamin B12 Level 416 pg/mL (200-900) 25-Hydroxy Vitamin D Total 43.7 ng/mL (>30) Folate 3.5 ng/mL (> or = 4.0) Low Thyroid Stimulating Hormone (TSH) 1.36 uIU/mL (0.32-4.0) Urine Creatinine 106.99 mg/dL Urine Microalbumin 79.0 mg/L Urine Microalbumin/Creatinine Ratio 73.8 ug/mg cr (<30) High Coding Level of Care Code Tele Est Pt Level 4 (96542) Complex EM visit Add On G2211 Diagnoses Encounter to discuss test results Z71.2 DM type 2 causing complication E11.8 Coronary artery disease involving [place] coronary artery of [place] heart without angina pectoris I25.10 Coronary Disease-Associated Artery/Lesion type: [place] artery Circle vs. transplanted heart: [place] heart Associated angina: without angina Folate deficiency E53.8 Microalbuminuria due to type 2 diabetes mellitus E11.29; R80.9 Assessment & Plan Assessment & Plan (1) Encounter to discuss test results: Code(s): Z71.2 - Person consulting for explanation of examination or test findings (2) DM type 2 causing complication: Code(s): E11.8 - Type 2 diabetes mellitus with unspecified complications Category: Medical (3) CAD (coronary artery disease): Code(s): I25.10 - Atherosclerotic heart disease of [place] coronary artery without angina pectoris Category: Medical Qualifiers: Coronary Disease-Associated Artery/Lesion type: [place] artery Circle vs. transplanted heart: [place] heart Associated angina: without angina Qualified Code(s): I25.10 - Atherosclerotic heart disease of [place] coronary artery without angina pectoris (4) Folate deficiency: Code(s): E53.8 - Deficiency of other specified B group vitamins Category: Medical (5) Microalbuminuria due to type 2 diabetes mellitus: Code(s): E11.29 - Type 2 diabetes mellitus with other diabetic kidney complication; R80.9 - Proteinuria, unspecified Category: Medical Plan . Orders: Orders Microalbumin, Random (w Creat) 3 Months E11.8 - Type 2 diabetes mellitus with unspecified complications, E53.8 - Deficiency of other specified B group vitamins, I25.10 - Atherosclerotic heart disease of [place] coronary artery without angina pectoris Hemoglobin A1c 3 Months E11.8 - Type 2 diabetes mellitus with unspecified complications, E53.8 - Deficiency of other specified B group vitamins, I25.10 - Atherosclerotic heart disease of [place] coronary artery without angina pectoris Comprehensive Met. Panel 3 Months E11.8 - Type 2 diabetes mellitus with unspecified complications, E53.8 - Deficiency of other specified B group vitamins, I25.10 - Atherosclerotic heart disease of [place] coronary artery without angina pectoris Lipid Panel 3 Months E11.8 - Type 2 diabetes mellitus with unspecified complications, E53.8 - Deficiency of other specified B group vitamins, I25.10 - Atherosclerotic heart disease of [place] coronary artery without angina pectoris Medications: New metformin ER (Glucophage XR) 2,000 mg (4 x 500 mg) PO QPM 360 tabs 2RF folic acid 1 mg PO DAILY 90 tabs 2RF Discontinued cephalexin Discontinued Reason: Patient Completed Course 500 mg PO Q6H 28 caps 0RF
--- OUTSIDE RECORDS SUMMARY | 2024-12-25 18:13 | XMS_ITS | Encounter Summary ---
Author Organization Located Within [facility] Address [address] [place] [phone] Phone Care Team Providers Care Crime Specialist Name Role Phone Minerva Ferrara MOP WORKER Primary Care Provider Reason for Visit * Reason Onset Date Comments Appointment 12/24/2024 Encounter Details Date Type Department Care Team (Late st Contact Info) Description 12/24/2024 Telephone [facility] Rheumatology - Virtual Department [address] [place] [address] Yancy Hutchinson MD [address] [facility], [address] [place] [address] [email or web address] Appointment Social History Tobacco Use Types Packs/Day Years Used Date Smoking Tobacco: Former Cigarettes S tarted: 2021 Smokeless Tobacco: Current Alcohol Use Standard Drinks/Week Comments Not Currently [...] AM EDT documented as of this encounter Progress Notes * Renzo Arrieta - 12/24/2024 12:15 PM EDT Pt needing 3 mnth f/u with Dr. Hutchinson in April 04 at checkout, pt stated Mondays anytime of dayare good and Monday-Monday pt has to be scheduled before 2 pm. Please reach out once schedules areavailable. Thank you. documented in this encounter Plan of Treatment Not on file documented as of this encounter Visit Diagnoses Not on filedocumented in this encounter Care Teams Crime Specialist Relationship Specialty Start Date End Date Minerva Ferrara NP [address] [place] [address] [place] [address] [email or web address] PCP - General Nurse Practitioner 09/26/23 documented as of this encounter Additional Source Comments The information contained in this document represents components of the legal health record. It is not the complete legal health record.[facility]
--- OUTSIDE RECORDS SUMMARY | 2024-12-25 18:13 | XMS_ITS | Encounter Summary ---
Author Organization [facility] Address [address] [place] [phone] Phone Care Team Providers Care Ob Tech Name Role Phone Thu Gallardo FLAKE CUTTER OPERATOR Primary Care Provider + Minerva Ferrara FLAKE CUTTER OPERATOR Primary Care Provider Encounter Details Date Type Department Care Team (Late st Contact Info) Description 10/10/2020 Procedure Pass [facility], Ct Scan - [facility] [address] [place] [address] Social History Tobacco Use Types Packs/Day Years [...] 10:00 PM EDT Dara Perez, RACHELE * [place] Suicide Severity Rating Scale (Screener/Recent Self-Report) Question [...] on filedocumented in this encounter Care Teams Ob Tech Relationship Specialty Start Date End Date Thu Gallardo NP [address] [place] [address] PCP - General Nurse Practitioner 10/10/20 09/25/23 Minerva Ferrara NP [address] [place] [address] [place] [address] [email or web address] PCP - General Nurse Practitioner 09/26/23 documented as of this encounter Additional Source Comments The information contained in this document represents components of the legal health record. It is not the complete legal health record.[facility]
--- OUTSIDE RECORDS SUMMARY | 2024-12-25 18:13 | XMS_ITS | Clinical Summary ---
Demographics Address [address] [place] [address] [address] [place] [address] Home Phone Mobile Phone Email Address Preferred Language Lebanese Marital Status /Civil Union Adventist Affiliation Unknown Race White Ethnic Group Not or Lati no Author Organization [facility] Address [address] [place] [address] Phone Care Team Providers Care Sewing Machine Adjuster Name Role Phone Minerva Ferrara FINAL DRESSING CUTTER Primary Care Provider Allergies Active Allergy Reactions Criticality Noted Date Comments Azithromycin 10/10/2020 Erythromycin 01/17/2021 Hydrocodone-Acetaminophen Hives 09/13/2015 Metformin 12/24/2024 Abdominal discomfort Oxycodone-Acetaminophen Hives 09/13/2015 Medications buPROPion (WELLBUTRIN XL) 300 MG ER 24 hr tablet Take 300 mg by mouth daily. Active metoprolol tartrate (LOPRESSOR) 25 MG tablet Take 25 mg by mouth daily. Active omeprazole (PRILOSEC) 10 MG capsule Take 40 mg by mouth 2 (two) times a day. Active QUEtiapine (SEROQUEL) 25 MG tablet Take 25 mg by mouth nightly at bedtime. Active amitriptyline (ELAVIL) 50 MG tablet 50 mg. 5 Active atorvastatin (LIPITOR) 10 MG tablet Take 10 mg by mouth daily. 5 Active cholecalciferol (VITAMIN D3) 2,000 unit capsule Take 1 capsule by mouth every morning. 5 Active gabapentin (NEURONTIN) 100 MG capsule 100 mg. 5 Active lidocaine (LIDODERM) 5 % Place 1 patch onto the skin. 5 Active LINZESS 290 mcg Cap capsule Take 1 capsule by mouth every morning. 5 Active lisinopril (PRINIVIL,ZESTRIL) 5 MG tablet Take 1 tablet by mouth every morning. 5 Active LORazepam (ATIVAN) 0.5 MG tablet Take 0.5 mg by mouth 2 (two) times a day. 5 Active meloxicam (MOBIC) 15 MG tablet 15 mg. 5 Active SUMAtriptan (IMITREX) 100 MG tablet TAKE 1 TABLET BY MOUTH EVERY DAY NEEDED FOR MIGRAINE 5 Active ondansetron (ZOFRAN-ODT) 4 MG disintegrating tablet 4 mg. 5 Active dextroamphetamine 10 MG tablet Take 10 mg by mouth daily. Unknown of dose 025 Discontin ued(No longer taking) clonazePAM (KLONOPIN) 0.5 MG tablet Take 1 mg by mouth daily as needed for anxiety. 025 Discontin ued(No longer taking) metFORMIN (GLUCOPHAGE) 500 MG tablet Take 1 tablet (500 mg total) by mouth 2 (two) times a day with meals. Okay to restart tomorrow night 025 Discontin ued(No longer taking) nicotine (NICODERM CQ) 14 mg/[address] 1 patch onto the skin daily. 15 patch 025 Discontin ued(No longer taking) Active Problems Problem Noted Date Diagnosed Date [...] numbness MRI and echocardiogram without acute findings, [facility] neurologist feels this may be migraine and patient should follow-up with neurologist within 6 weeks Encounters Date Type Department Care Team Description 12/24/2024 11:00 AM EDT Office Visit [facility] Rheumatology [address] [place] [address] Yancy Hutchinson MD Undifferentiated connective tissue disease (Primary Dx); Fibromyalgia; Bilateral carpal tunnel syndrome; Lymphadenopathy, axillary 12/24/2024 Telephone [facility]ology - Virtual Department [address] [place] [address] Yancy Hutchinson MD Appointment from Last 3 Months Immunizations Immunization Administration Dates Next Due Tdap [...] Pulse 78 12/24/2024 10:55 AM EDT Temperature 36.2 C (97.2 F) 01/17/2021 6:54 PM EDT Respiratory Rate 20 01/17/2021 6:54 PM EDT Oxygen Saturation 98% 12/24/2024 10:55 AM EDT Inhaled Oxygen Concentration - - Weight 93.9 kg (207 lb) 12/24/2024 10:55 AM EDT Height 160 cm (5' 3 ) 01/17/2021 6:54 PM EDT Body Mass Index 36.67 01/17/2021 6:54 PM EDT Plan of Treatment Health Maintenance Due Date Last Done Comments DEPRESSION SCREENING 1993 SMOKING Hx and SMOKELESS TOBACCO SCREENING 1994 HEPATITIS C SCREENING 10/14/1999 HIV ONE-TIME SCREENING (18-6 5 YEARS) 10/14/1999 PNEUMOCOCCAL VACCINES (0-49 years) (1 of 2 - PCV) 2000 PAP SMEAR 2002 DIABETIC EYE EXAM 10/10/2020 HEMOGLOBIN A1C 04/13/2021 10/11/2020 CREATININE LEVEL 10/12/2021 10/12/2020, 10/11/2020, 10/10/2020 POTASSIUM LEVEL 10/12/2021 10/12/2020, 10/11/2020, 10/10/2020 MAMMOGRAM 2021 INFLUENZA VACCINE (#1) 2024 , 03/16/2023 COVID-19 VACCINE (2 - 2024-2 6 season) 2024 08/14/2020 BLOOD PRESSURE 06/23/2025 12/24/2024 Adult Td,Tdap Booster 01/17/2031 01/17/2021 HEPATITIS A [...] HEMOGLOBIN A1C Routine 10/11/2020 5:42 AM EDT from Last 3 Months or Most Recently Relevant to Health Maintenance Results * (ABNORMAL) Basic metabolic panel (10/12/2020 6:17 AM EDT) SODIUM 139 133 - 146 mmol/L [facility] CHLORIDE 105 96 - 108 mmol/L [facility] POTASSIUM 3.5 3.3 - 5.1 mmol/L [facility] CO2 25 21 - 35 mmol/L [facility] BUN 11 6 - 19 mg/dL [facility] CREATININE 0.60 0.5 - 1.5 mg/dL [facility] GLUCOSE 139(H) 70 - 99 mg/dL [facility] CALCIUM 8.3(L) 8.4 - 10.3 mg/dL [facility] EGFR 116 >59 mL/min/1.7 3m2 [facility] Comment:Estimated glomerular filtration rate calculated using the CKD-EPI equation. ANION GAP 13 10 - 20 mmol/L [facility] Blood 10/12/2020 6:17 AM EDT 10/12/2020 6:23 AM EDT us Aileen Wright FINAL DRESSING CUTTER LAB BLOOD ORDERABLES Fi nal Result Performing Organization Address [facility]/ZIP Co de Phone Number [address] [address] * (ABNORMAL) Hemoglobin A1c (10/11/2020 5:42 AM EDT) HEMOGLOBIN A1C 7.3(H) 4.3 - 5.8 % [facility] Blood 10/11/2020 5:42 AM EDT 10/11/2020 6:20 AM EDT Aileen Wright FINAL DRESSING CUTTER LAB BLOOD ORDERABLES Fi nal Result Performing Organization Address City/[facility]/ZIP Co de Phone Number [address] [address] from Last 3 Months or Most Recently Relevant to Health Maintenance Insurance [address] [place], [place] [facility] [address] [place] [facility] [employer] [address] [place] [facility] [employer] [facility] [facility] [address] [place] [address] * Guarantor: ArnoldfahadLinda Account Type Relation to Patient Date of Phone Billing Address Personal/Family Self [address] [place] [address] [address] [place] [address] Advance Directives For more information, please contact: [phone] (9AM - 5PM [facility], Monday-Monday) Documents on File Type Date Recorded Patient Knitting Supervisor Expl anation Healthcare Proxy 2020 2:16 PM * Full Code (Latest Code Status on File) Date Activated Date Inactivated Comments 10/10/2020 6:09 PM Question Answer Comments Code Status Confirmed With: Patient Care Teams Sewing Machine Adjuster Relationship Specialty Start Date End Date Minerva Ferrara NP [address] [place] [address] [place] [address] [email or web address] PCP - General Nurse Practitioner 09/26/23 Additional Source Comments The information contained in this document represents components of the legal health record. It is not the complete legal health record.[facility]
--- OUTSIDE RECORDS SUMMARY | 2024-12-25 18:13 | XMS_ITS | Encounter Summary ---
Author Organization [facility] Address [address] [place] [phone] Phone Care Team Providers Care Fried Cake Maker Name Role Phone Thu Gallardo SAW SETTER Primary Care Provider + Minerva Ferrara SAW SETTER Primary Care Provider Encounter Details Date Type Department Care Team (Late st Contact Info) Description 10/10/2020 Procedure Pass [facility], Ct Scan - [facility] [address] [place] [address] Social History Tobacco Use Types Packs/Day Years [...] 10:00 PM EDT Dara Perez, RACHELE * [place] Suicide Severity Rating Scale (Screener/Recent Self-Report) Question [...] on filedocumented in this encounter Care Teams Fried Cake Maker Relationship Specialty Start Date End Date Thu Gallardo NP [address] [place] [address] PCP - General Nurse Practitioner 10/10/20 09/25/23 Minerva Ferrara NP [address] [place] [address] [place] [address] [email or web address] PCP - General Nurse Practitioner 09/26/23 documented as of this encounter Additional Source Comments The information contained in this document represents components of the legal health record. It is not the complete legal health record.[facility]
--- OUTSIDE RECORDS SUMMARY | 2024-12-25 18:13 | XMS_ITS | Encounter Summary ---
Author Organization [facility] Address [address] [place] [phone] Phone Care Team Providers Care Decal Transferrer Name Role Phone Thu Gallardo SCOUT LEASER Primary Care Provider + Minerva Ferrara SCOUT LEASER Primary Care Provider Encounter Details Date Type Department Care Team (Late st Contact Info) Description 10/10/2020 Procedure Pass [facility] [address] [place] [address] Social History Tobacco Use Types Packs/Day Years [...] 10:00 PM EDT Dara Perez RN * [place] Suicide Severity Rating Scale (Screener/Recent Self-Report) Question [...] on filedocumented in this encounter Care Teams Decal Transferrer Relationship Specialty Start Date End Date Thu [facility] [place] [address] PCP - General Nurse Practitioner 10/10/20 09/25/23 Minerva Ferrara NP [address] [place] [address] [place] [address] [email or web address] PCP - General Nurse Practitioner 09/26/23 documented as of this encounter Additional Source Comments The information contained in this document represents components of the legal health record. It is not the complete legal health record.[facility]
--- OUTSIDE RECORDS SUMMARY | 2024-12-25 18:13 | XMS_ITS | Encounter Summary ---
Author Organization [facility] Address [address] [place] [address] Phone Care Team Providers Care Mold Shaker Name Role Phone Thu Gallardo PROVIDER NETWORK MGR Primary Care Provider + Minerva Ferrara PROVIDER NETWORK MGR Primary Care Provider Encounter Details Date Type Department Care Team (Late st Contact Info) Description 10/10/2020 Procedure Pass [facility], [facility] [address] [place] [address] Social History Tobacco Use Types Packs/Day Years [...] 10:00 PM EDT Dara Perez, RACHELE * [place] Suicide Severity Rating Scale (Screener/Recent Self-Report) Question [...] on filedocumented in this encounter Care Teams Mold Shaker Relationship Specialty Start Date End Date Thu Gallardo NP [address] [place] [address] PCP - General Nurse Practitioner 10/10/20 09/25/23 Minerva Ferrara NP [address] [place] [address] [place] [address] [email or web address] PCP - General Nurse Practitioner 09/26/23 documented as of this encounter Additional Source Comments The information contained in this document represents components of the legal health record. It is not the complete legal health record.[facility]
--- OUTSIDE RECORDS SUMMARY | 2024-12-25 18:13 | XMS_ITS | Encounter Summary ---
Author Organization [facility] Address [address] [place] [address] Phone Care Team Providers Care Riveting Machine Operator Tape Control Name Role Phone Minerva Ferrara BULK RECEIVER Primary Care Provider Encounter Details Date Type Department Care Team ([facility] st Contact Info) Description 08/27/2024 Telephone [facility] Pulmonary, Allergy and Critical Care Medicine 10 [facility] [place], [place] [id number] Cathy [email or web address] Social History Tobacco Use Types Packs/Day Years [...] on filedocumented in this encounter Care Teams Riveting Machine Operator Tape Control Relationship Specialty Start Date End Date Minerva Ferrara NP [address] [place] [address] [place] [address] [email or web address] PCP - General Nurse Practitioner 09/26/23 documented as of this encounter Additional Source Comments The information contained in this document represents components of the legal health record. It is not the complete legal health record.[facility]
== END 2024-12-25 15:15 | disposition home or self-care (01) ==
LOC: HO.HMCFM 14:30
PROVIDERS: PCP Nurse Practitioner Family; Visit Provider Nurse Practitioner Family
DX: E11.29 Type 2 diabetes mellitus with other diabetic kidney complication (principal); E11.8 Type 2 diabetes mellitus with unspecified complications; Z71.2 Person consulting for explanation of examination or test findings; I25.10 Atherosclerotic heart disease of native coronary artery without angina pectoris; E53.8 Deficiency of other specified B group vitamins; R80.9 Proteinuria, unspecified

== ENCOUNTER 2025-02-12 09:04 | Outpatient (AMB) | payer OTHER, SELFPAY ==
--- NOTE | 2025-02-12 09:10 | AM.OFFWIN_ITS ---
Intake Vital Signs 02/12/25 09:11 Height 5 ft 3 in Weight 205 lb BMI 36.3 BP 122/80 Blood Pressure Location Lt brachial Position Sitting Respiration 16 Pulse 83 Pulse Source Pulse Oximeter Temp 97.7 F Temp Source Oral Pulse Oximetry (%) 99 Oxygen Delivery Method Room Air Intake Visit Reasons: EP Fever, vomiting, diarrhea, body aches Intake Note: Pt is here today fever,vomiting, diarrhea and bodyaches x2days Patient Tobacco Use Status: Former Tobacco user Allergies hydrocodone (From VICODIN) Allergy (Mild, Verified 02/12/25 09:18) HIVES oxycodone (From PERCOCET) Allergy (Mild, Verified 02/12/25 09:18) HIVES azithromycin (AZITHROMYCIN) Allergy (Unknown, Verified 02/12/25 09:18) NAUSEA & VOMITING erythromycin base (From ERYTHROCIN) Allergy (Unknown, Verified 02/12/25 09:18) NAUSEA & VOMITING metformin Adverse Reaction (Mild, Uncoded 02/12/25 09:18) Gastrointestinal Upset HPI HPI Comments History of Present Illness Details History - The patient is a 44-year-old female pr esenting with nausea, vomiting, diarrhea, and fever. - Nausea and vomiting began almost a wee k ago, worsening over the weekend. - Reports severe nausea and vomiting, wi th body aches and fever ranging from 99.1?F to 101.8?F. - Fever responds to Tylenol but recurs, with negative COVID tests at home. - Diarrhea is present, possibly exacerba gisela by medication for constipation. - Reports unusual stool appearance with mucus, but no blood or black stools. - History of hemorrhoidectomy, with curr ent hemorrhoids worse due to constipation. - Constipation managed with Colace and l ubiprostone, with severe constipation if doses are missed. - Respiratory symptoms include mild coug h and congestion, with mild asthma managed by rescue inhaler. - Uses marijuana to manage nausea, avoid ing use before work. - Preventative care includes a requireme nt for influenza vaccination, with a deadline approaching. Review of Systems - Gastrointestinal: Reports nausea, vomi ting, diarrhea, and constipation. Denies blood or black stools. - Constitutional: Reports fever up to 10 1.8?F, body aches, and chills. - Respiratory: Reports mild cough, conge stion, and dyspnea. Denies significant wheezing. - Neurological: Denies headaches or dizz iness. All systems reviewed and are unremarkable except as noted in HPI Physical Exam General: Cooperative, healthy appearing, comfortable and no acute distress Orientation/consciousness: Patient oriented x3 Limitations: No limitations Head: Normal to inspection Ears: Hearing grossly normal bilaterally, external ears normal, EAC's normal bilaterally and TM's normal bilaterally Nose: Normal external nose present, Normal nares present and No nasal discharge present Face and sinus: Normal facial exam and sinuses nontender Mouth: Normal oral and palatal mucosa present and moist mucous membranes Throat: Tonsils normal, no exudates, uvula midline, posterior oropharynx erythema Eyes: Appearance normal, both eyes and all related structures Neck: Normal visual inspection, full ROM Respiratory: Clear to auscultation bilaterally. Normal respiratory effort, able to speak in complete sentences, actively coughing, no respiratory distress, not tachypneic, no tripod positioning and no use of accessory muscles Cardiovascular: Regular rate and rhythm. Normal S1 and S2 Skin: No rashes or lesions noted Neuro: Patient oriented x3 Extremities: Normal to inspection and Yes no clubbing, cyanosis or edema PFSH Medical History Postoperative pain Acute respiratory disease Nausea with vomiting, unspecified Nephrolithiasis Periodic limb movements of sleep Anemia Asthma Sleep apnea Migraine Sinusitis Breast pain, left Hypertension Sleep apnea Bipolar 1 disorder Depression Anxiety delivery delivered Diabetes Sciatica Kidney infection Kidney stones HTN (hypertension) Fibromyalgia Lupus Surgical History S/P hemorrhoidectomy (10/28/24) Hx of colonoscopy History of esophagogastroduodenoscopy (EGD) H/O section H/O: hysterectomy Family History Maternal Grandmother HTN (hypertension) Diabetes Cancer Mother Ovarian cancer Other FH: mental illness Substance use Social History Household Members: Spouse Housing: Apartment Are you a primary healthcare marketer to a significant other at home: No Do you presently have visiting nurse or other home services: No Alcohol intake: current Alcohol intake frequency: holidays/special occasions only Alcohol type: hard liquor Patient Tobacco Use Status: Former Tobacco user Tobacco use type: Smokeless Tobacco e-Cigarette/Vaping Use: Currently Using Substance Use Type: Marijuana Advance Directives Date on File: 02/02/24 service: No Current occupational status: employed 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 Current occupational exposures/hazards: No Cognitive needs: No Hearing needs: No Vision needs: Yes (glasses) Physical Exam Vital Signs: Last Vital Signs Temp 97.7 F 02/12/25 09:11 Pulse 83 02/12/25 09:11 Resp 16 02/12/25 09:11 BP 122/80 02/12/25 09:11 Pulse Ox 99 02/12/25 09:11 Oxygen Delivery Method Room Air 02/12/25 09:11 BMI result Body Mass Index 36.3 Assessment & Plan Assessment & Plan (1) Acute viral syndrome: Code(s): B34.9 - Viral infection, unspecified Plan: Plan Patient was informed and verbally consented to the use of an ambient scribe for clinic note documentation during this visit. - VSS, pt well appearing and PE unremarkable. - Sent flu, covid and rsv testing. - Symptomatic treatment with Zofran recommended for nausea management. - Advised to maintain hydration with water and electrolytes. - Continue using rescue inhaler as needed for dyspnea. - Continue current regimen of Colace and lubiprostone. - Continue using Sudafed for congestion as needed. - Monitor respiratory symptoms and seek further evaluation if they worsen. - Advised to obtain influenza vaccination once recovered from current illness. - Wrote work note for today and tomorrow. Orders: Orders SARS-CoV2/FLU/RSV Today R09.89 - Other specified symptoms and signs involving the circulatory and respiratory systems Coding Level of Care Code Est Pt Level 3 (77320) Diagnoses Acute viral syndrome B34.9
[2025-02-12 09:11] VITALS: BP 122/80; PULSE 83; RESP 16; TEMP 36.5; O2SAT 99; BMI 36.3
--- OUTSIDE RECORDS SUMMARY | 2025-02-12 09:41 | XMS_ITS | Encounter Summary ---
Author Organization [facility] Address [address] [place] [address] Phone Care Team Providers Care Bioengineer Name Role Phone Thu Gallardo CHIEF OPHTHALMIC TECHNICIAN Primary Care Provider + Minerva Ferrara CHIEF OPHTHALMIC TECHNICIAN Primary Care Provider Encounter Details Date Type Department Care Team (Late st Contact Info) Description 10/10/2020 Procedure Pass [facility] [address] [place] [address] Social History Tobacco Use Types Packs/Day Years [...] 10:00 PM EDT Dara Perez RN * [place] Suicide Severity Rating Scale (Screener/Recent Self-Report) Question Answer Date of Assessment Author 1. Wish to be (Past 1 Month) No 10/10/2020 10:00 PM EDT Blake Holland, RACHELE 2. Non-Specific Active Suici rekha Thoughts (Past 1 Month) No 10/10/2020 10:00 PM EDT Dara Holland, RACHELE 6. Suicidal Behavior (Lifetime) No 10:00 PM EDT Dara Holland, RACHELE documented as of this encounter Plan of Treatment Upcoming Encounters Date Type Department Care Team (Late st Contact Info) Description 02/17/2025 2:00 PM EST Office Visit [address] [address] Yancy Hutchinson MD [address] [place] [phone] Lindy Deutsch, PT 8 [place] [address] 02/24/2025 2:00 PM EST Office Visit [address] [place] [address] Yancy Hutchinson MD [address] [place] [address] Lindy Deutsch, PT 8 [place] [address] 02/26/2025 1:15 PM EST Office Visit [address] [place] [address] Yancy Hutchinson MD [address] [place] [address] Lindy Deutsch, PT 8 [place] [address] 03/03/2025 2:00 PM EST Office Visit [address] [place] [address] Yancy Hutchinson MD [address] [place] [phone] Lindy Deutsch, PT 8 [place] [address] 03/10/2025 2:00 PM EST Office Visit [facility] 8 [place] [address] Yancy Hutchinson MD [address] [place] [address] Lindy Deutsch, PT 8 [place] [address] 03/12/2025 1:15 PM EST Office Visit [facility] [address] [place] [address] Yancy Hutchinson MD [address] [place] [phone] Lindy Deutsch, PT 8 [place] [address] 03/17/2025 2:00 PM EST Office Visit [facility] [address] [place] [address] Yancy Hutchinson MD [address] [place] [phone] Lindy Deutsch, PT 8 [place] [address] 03/19/2025 1:15 PM EST Office Visit [facility] [address] [place] [address] Yancy Hutchinson MD [address] [place] [phone] Lindy Deutsch, PT 8 [place] [address] 03/27/2025 9:30 AM EST Office Visit [facility] [address] [place] [address] Yancy Hutchinson MD [address] [facility], [address] [place] [address] documented as of this encounter Visit Diagnoses Not on filedocumented in this encounter Care Teams Bioengineer Relationship Specialty Start Date End Date Thu Gallardo NP [address] [place] [address] PCP - General Nurse Practitioner 10/10/20 09/25/23 Minerva Ferrara NP [address] [place] [address] [place] [address] [email or web address] PCP - General Nurse Practitioner 09/26/23 documented as of this encounter Additional Source Comments The information contained in this document represents components of the legal health record. It is not the complete legal health record.[facility]
--- OUTSIDE RECORDS SUMMARY | 2025-02-12 09:41 | XMS_ITS | Encounter Summary ---
Author Organization [facility] Address [address] [place] [address] Phone Care Team Providers Care Bottle Capping Machine Operator Name Role Phone Minerva Ferrara FACILITIES OPERATOR Primary Care Provider Encounter Details Date Type Department Care Team (Late st Contact Info) Description 08/27/2024 Telephone [facility] Pulmonary, Allergy and Critical Care Medicine [address] [place], [place] [phone] Cathy [email or web address] Social History Tobacco Use [...] Department Care Team (Late Contact Info) Description 02/17/2025 2:00 PM EST Office Visit [facility] [address] [place] [address] Yancy Hutchinson MD [address] [place] [phone] Lindy Deutsch, PT 8 [place] [address] 02/24/2025 2:00 PM EST Office Visit [address] [place] [address] Yancy Hutchinson MD [address] [place] [address] Lindy Deutsch, PT 8 [place] [address] 02/26/2025 1:15 PM EST Office Visit [address] [address] Yancy Hutchinson MD [address] [place] [address] Lindy Deutsch, PT 8 [place] [address] 03/03/2025 2:00 PM EST Office Visit [facility] [address] [place] [address] Yancy Hutchinson MD [address] [place] [address] Lindy Deutsch, PT 8 [place] [address] 03/10/2025 2:00 PM EST Office Visit [facility] [address] [place] [address] Yancy Hutchinson MD [address] [place] [phone] Lindy Deutsch, PT 8 [place] [address] 03/12/2025 1:15 PM EST Office Visit [facility] 8 [place] [address] Yancy Hutchinson MD [address] [place] [phone] Lindy Deutsch, PT 8 [place] [address] 03/17/2025 2:00 PM EST Office Visit [address] [address] Yancy Hutchinson MD [address] [place] [phone] Lindy Deutsch, PT 8 [place] [address] 03/19/2025 1:15 PM EST Office Visit [facility] 8 [place] [address] Yancy Hutchinson MD [address] [place] [phone] Lindy Deutsch, PT 8 [place] [address] 03/27/2025 9:30 AM EST Office Visit [facility] [address] [place] [address] Yancy Hutchinson MD 22 [facility], [address] [place] [address] [email or web address] documented as of this encounter Visit Diagnoses Not on filedocumented in this encounter Care Teams Bottle Capping Machine Operator Relationship Specialty Start Date End Date Minerva Ferrara NP [address] [place] [address] [place] [address] [email or web address] PCP - General Nurse Practitioner 09/26/23 documented as of this encounter Additional Source Comments The information contained in this document represents components of the legal health record. It is not the complete legal health record.[facility]
--- OUTSIDE RECORDS SUMMARY | 2025-02-12 09:41 | XMS_ITS | Encounter Summary ---
Author Organization [facility] Address [address] [place] [address] Phone Care Team Providers Care Board Machine Set Up Operator Name Role Phone Thu Gallardo FORK LIFT TECHNICIAN Primary Care Provider + Minerva Ferrara FORK LIFT TECHNICIAN Primary Care Provider Encounter Details Date Type Department Care Team (Late st Contact Info) Description 10/10/2020 Procedure Pass [facility], [facility] [address] [place] [address] Social History Tobacco Use Types Packs/Day Years [...] 10:00 PM EDT Dara Perez, RACHELE * [place] Suicide Severity Rating Scale (Screener/Recent Self-Report) Question Answer Date of Assessment Author 1. Wish to be (Past 1 Month) No 10/10/2020 10:00 PM EDT Blake Holland, RACHELE 2. Non-Specific Active Suici rekha Thoughts (Past 1 Month) No 10/10/2020 10:00 PM EMILYT Dara Holland, RN 6. Suicidal Behavior (Lifetime) No 10:00 PM EMILYT Dara Holland, RACHELE documented as of this encounter Plan of Treatment Upcoming Encounters Date Type Department Care Team (Late st Contact Info) Description 02/17/2025 2:00 PM EST Office Visit [address] [place] [address] Yancy Hutchinson MD [address] [place] [phone] Lindy Deutsch, PT 8 [place] [address] 02/24/2025 2:00 PM EST Office Visit [address] [place] [address] Yancy Hutchinson MD [address] [place] [phone] Lindy Deutsch, PT 8 [place] [address] 02/26/2025 1:15 PM EST Office Visit [address] [place] [address] Yancy Hutchinson MD [address] [place] [phone] Lindy Deutsch, PT 8 [place] [address] 03/03/2025 2:00 PM EST Office Visit [address] [place] [address] Yancy Hutchinson MD [address] [address] Lindy Deutsch, PT 8 [place] [address] 03/10/2025 2:00 PM EST Office Visit [facility] [address] [place] [address] Yancy Hutchinson MD [address] [place] [phone] Lindy Deutsch, PT 8 [place] [address] 03/12/2025 1:15 PM EST Office Visit [facility] [address] [place] [address] Yancy Hutchinson MD [address] [place] [address] Lindy Deutsch, PT 8 [place] [address] 03/17/2025 2:00 PM EST Office Visit [facility] [address] [place] [address] Yancy Hutchinson MD [address] [place] [phone] Lindy Deutsch, PT 8 [place] [address] 03/19/2025 1:15 PM EST Office Visit [facility] [address] [place] [address] Yancy Hutchinson MD [address] [place] [address] 203 [place] [address] Get Lindy, PT 8 [place] [address] 03/27/2025 9:30 AM EST Office Visit [facility] Rhe[facility]ology [address] [place] [address] Yancy Hutchinson MD 22 [facility], [address] [place] [address] documented as of this encounter Visit Diagnoses Not on filedocumented in this encounter Care Teams Board Machine Set Up Operator Relationship Specialty Start Date End Date Thu Gallardo NP [address] [place] [address] PCP - General Nurse Practitioner 10/10/20 09/25/23 Minerva Ferrara NP [address] [place] [address] [place] [address] [email or web address] PCP - General Nurse Practitioner 09/26/23 documented as of this encounter Additional Source Comments The information contained in this document represents components of the legal health record. It is not the complete legal health record.[facility]
--- OUTSIDE RECORDS SUMMARY | 2025-02-12 09:41 | XMS_ITS | Clinical Summary ---
Demographics Address [address] [place] [address] [address] [place] [address] Home Phone Mobile Phone Email Address Preferred Language Irish Marital Status /Civil Union Jew Affiliation Unknown Race White Ethnic Group Not or Lati no Author Organization [facility] Address [address] [place] [address] Phone Care Team Providers Care Night Monitor Name Role Phone Minerva Ferrara POWERTRAIN CALIBRATION ENGINEER Primary Care Provider Allergies Active Allergy Reactions [...] MG disintegrating tablet 4 mg. 5 Active Active Problems Problem Noted Date Diagnosed [...] numbness MRI and echocardiogram without acute findings, [facility] neurologist feels this may be migraine and patient should follow-up with neurologist within 6 weeks Encounters Date Type Department Care Team Description 01/01/2025 Orders Only [facility] Rheumatology [address] [place] [address] ProviderWilma MD 12/28/2024 1:26 PM EDT - 12/28/2024 11:59 PM EDT Hospital Encounter [facility] Main [address] [place] [address] Yancy Hutchinson MD Discharge Disposition: Home or Self Care 12/24/2024 11:00 AM EDT Office Visit [facility] Rheumatology [address] [place] [address] Yancy Hutchinson MD Undifferentiated connective tissue disease (Primary Dx); Fibromyalgia; Bilateral carpal tunnel syndrome; Lymphadenopathy, axillary 12/24/2024 Telephone [facility] Rheumatology - Virtual Department [address] [place] [address] Yancy Hutchinson MD Appointment from Last 3 [...] Description 02/17/2025 2:00 PM EST Office Visit [address] [address] Yancy Hutchinson MD [address] [place] [address] Lindy Deutsch, PT [address] [place] [address] 02/24/2025 2:00 PM EST Office Visit [address] [place] [address] Yancy Hutchinson MD [address] [place] [address] Lindy Deutsch, PT 8 [place] [address] 02/26/2025 1:15 PM EST Office Visit [address] [place] [address] Yancy Hutchinson MD [address] [place] [address] Lindy Deutsch, PT 8 [place] [address] 03/03/2025 2:00 PM EST Office Visit [address] [place] [address] Yancy Hutchisnon MD [address] [place] [address] Lindy Deutsch, PT 8 [place] [address] 03/10/2025 2:00 PM EST Office Visit [address] [address] Yancy Hutchinson MD [address] [place] [address] Lindy Deutsch, PT 8 [place] [address] 03/12/2025 1:15 PM EST Office Visit [address] [address] Yancy Hutchinson MD [address] [place] [address] Lindy Deutsch, PT 8 [place] [address] 03/17/2025 2:00 PM EST Office Visit [address] [address] Yancy Hutchinson MD [address] [place] [address] Lindy Detusch, PT 8 [place] [address] 03/19/2025 1:15 PM EST Office Visit [address] [address] Yancy Hutchinson MD [address] [place] [address] Lindy Deutsch, PT 8 [place] [address] 03/27/2025 9:30 AM EST Office Visit [facility] Rheumatology [address] [place] [address] Yancy Hutchinson MD 22 [facility], [address] [place] [address] [email or web address] Health Maintenance Due Date Last Done Comments DEPRESSION SCREENING 1993 SMOKING Hx and SMOKELESS TOBACCO SCREENING 1994 HEPATITIS C SCREENING 10/14/1999 HIV ONE-TIME SCREENING (18-65 YEARS) 10/14/1999 PNEUMOCOCCAL VACCINES (0-49 years) (1 of 2 - PCV) 2000 PAP SMEAR 2002 DIABETIC EYE EXAM 10/10/2020 HEMOGLOBIN A1C 04/13/2021 10/11/2020 MAMMOGRAM 2021 INFLUENZA VACCINE (#1) 2024 01/02/2024, 2022 COVID-19 VACCINE (2 - season) 2024 08/14/2020 BLOOD PRESSURE 06/23/2025 12/24/2024 CREATININE LEVEL 12/28/2025 12/28/2024, 08/2020, 10/11/2020, Additional history exists POTASSIUM LEVEL 12/28/2025 12/28/2024, 07/0 08/2020, 10/11/2020, Additional history exists Adult Td,Tdap Booster 01/17/2031 01/17/2021 HEPATITIS A [...] Procedure Name Priority Date/Time Associated Diagnosis Comments ANTI-CARDIOLIPIN ANTIBODIES Routine 12/28/2024 1:27 PM EDT Undifferentiated connective tissue disease ANTINUCLEAR ANTIBODY (GERARDO) Routine 12/28/2024 1:27 PM EDT Undifferentiated connective tissue disease [id number] I ANTIBODIES Routine 12/28/2024 1:27 PM EDT Undifferentiated connective tissue disease CCP IGG ANTIBODIES Routine 12/28/2024 1: 27 PM EDT Undifferentiated connective tissue disease COMPLEMENT C3 Routine 12/28/2024 1:27 PM EDT Undifferentiated connective tissue disease COMPLEMENT C4 Routine 12/28/2024 1:27 PM EDT Undifferentiated connective tissue disease DOUBLE STRANDED DNA ANTIBODIES Routine 12/28/2024 1:27 PM EDT Undifferentiated connective tissue disease LUPUS ANTICOAGULANT PANEL Routine 12/28/2024 1:27 PM EDT Undifferentiated connective tissue disease SOC[employer] H[employer] SERVICES [employer]S ANTIBODY Routine 12/28/2024 1:27 PM EDT Undifferentiated connective tissue disease SCL-70 ANTIBODY Routine 12/28/2024 1:27 PM EDT Undifferentiated connective tissue disease SS-A/SS-B ANTIBODIES Routine 12/28/2024 1:27 PM EDT Undifferentiated connective tissue disease U1RNP AND KRUGER ANTIBODIES Routine 12/28/2024 1:27 PM EDT Undifferentiated connective tissue disease RHEUMATOID FACTOR Routine 12/28/2024 1:2 7 PM EDT Undifferentiated connective tissue disease COMPREHENSIVE METABOLIC PANEL (CMP) Routine 12/28/2024 1:27 PM EDT Undifferentiated connective tissue disease CBC AND DIFFERENTIAL Routine 12/28/2024 1:27 PM EDT Undifferentiated connective tissue disease C-REACTIVE PROTEIN (CRP) Routine 12/28/2024 1:27 PM EDT Undifferentiated connective tissue disease SEDIMENTATION RATE (ESR) Routine 12/28/2024 1:27 PM EDT Undifferentiated connective tissue disease OUTSIDE LAB Routine 12/18/2024 2:41 PM EDT HEMOGLOBIN A1C Routine 10/11/2020 5:42 AM EDT from Last 3 Months or Most Recently Relevant to Health Maintenance Results * [employer] ANTIBODY (12/28/2024 1:27 PM EDT) Pathologist [facility] SOC[employer] AB, IGG 0.6 <1.0 (Negative) U [facility] LAB MED/PATH [address] Blood 12/28/2024 1:27 PM EDT 12/28/2024 1:43 PM EDT Yancy Hutchinson MD LAB BLOOD ORDERABLES Cindy l Result [facility] LAB MED/PATH [address] [place] [address] * SS-A/SS-B antibodies (12/28/2024 1:27 PM EDT) Pathologist [facility] ANTI-RO ANTIBODY 2.37 0.00 - 19.99 OD UNIT [facility] RO INTERPRETATION Negative Negative [facility] ANTI-LA ANTIBODY 5.17 0.00 - 19.99 OD UNIT [facility] LA INTERPRETATION Negative Negative [facility] Blood 12/28/2024 1:27 PM EDT 12/28/2024 1:42 PM EDT Yancy Hutchinson MD LAB BLOOD ORDERABLES Cindy l Result [facility] [address] [place] [address] * (ABNORMAL) Comprehensive metabolic panel (12/28/2024 1:27 PM EDT) SODIUM 136 133 - 146 mmol/L [facility] POTASSIUM 3.9 3.3 - 5.1 mmol/L [facility] CHLORIDE 102 96 - 108 mmol/L [facility] CO2 22 21 - 35 mmol/L [facility] BUN 15 6 - 19 mg/dL [facility] CREATININE 0.60 0.5 - 1.5 mg/dL [facility] GLUCOSE 207(H) 70 - 99 mg/dL [facility] ALBUMIN 4.0 3.9 - 4.8 g/dL [facility] TOTAL PROTEIN 7.1 6.5 - 8.0 g/dL [facility] CALCIUM 8.9 8.4 - 10.3 mg/dL [facility] ALKALINE PHOSPHATASE 145(H) 39 - 117 U/L [facility] TOTAL BILIRUBIN <0.2 0.0 - 1.2 mg/dL [facility] AST 28 0 - 37 U/L [facility] ALT 31 0 - 40 U/L [facility] GLOBULIN 3.1 1 - 4.8 g/dL [facility] EGFR 114 >59 mL/min/1.7 3m2 [facility] Comment:Estimated glomerular filtration rate calculated using the CKD-EPI refit equation. ANION GAP 16 10 - 20 mmol/L [facility] Blood 12/28/2024 1:27 PM EDT 12/28/2024 1:41 PM EDT us Yancy Hutchinson MD LAB BLOOD BKR ORDERABLES Final Result Performing Organization Address City/State/[facility] Co de Phone Number [facility] [address] [place] [address] * U1RNP and Kruger antibodies (12/28/2024 1:27 PM EDT) ANTI-SM ANTIBODY 7.24 0.00 - 19.99 OD UNIT [facility] SM INTERPRETATION Negative Negative [facility] ANTI-[employer] SERVICES ASSIST[employer]S ANTIBODY 5.92 0.00 - 19.99 OD UNIT [facility] [employer] HUM[employer]S INTERPRETATION Negative Negative [facility] Blood 12/28/2024 1:27 PM EDT 12/28/2024 1:42 PM EDT Result [facility] Yancy Hutchinson MD LAB BLOOD ORDERABLES Cindy l Result [address] [address] * CCP IgG antibodies (12/28/2024 1:27 PM EDT) ANTI-CCP IGG <8 0 - 16 U/mL [facility] Blood 12/28/2024 1:27 PM EDT 12/28/2024 1:42 PM EDT Result [facility] Yancy Hutchinson MD LAB BLOOD BKR ORDERABLES Final Result Performing Organization Address [facility] Co de Phone Number [address] [address] * Scl-70 antibody (12/28/2024 1:27 PM EDT) SCL 70 AB, IGG <0.2 <1.0 (Negative) U [facility] LAB MED/PATH [address] Blood 12/28/2024 1:27 PM EDT 12/28/2024 1:43 PM EDT Result [facility] Yancy Hutchinson MD LAB BLOOD ORDERABLES Cindy l Result Performing Organization Address City/[facility] Co de Phone Number [facility] MED/PATH [address] [place] [address] * Double stranded DNA antibodies (12/28/2024 1:27 PM EDT) ANTI DSDNA ANTIBODY Negative at 1:10 [facility] Comment: Dequan Avalos M.D., Director Clinical Immunology Laboratory [id number] Normal: Negative at 1:10 To interpret a negative test for anti-[place] or double stranded DNA antibodies in a patient suspected of having systemic lupus erythematosus, the following limitation should be noted. Anti-double stranded DNA antibodies are usually detected in SLE patients with active disease, especially in those with active renal disease. Anti-DNA antibodies are usually not detected in SLE patients with spontaneous or drug-induced remissions. Blood 12/28/2024 1:27 PM EDT 12/28/2024 1:42 PM EDT Yancy Hutchinson MD LAB BLOOD BKR ORDERABLES Final Result [facility] [address] [place] [address] * Xxcr-4-ujoysrmusmau I antibodies (12/28/2024 1:27 PM EDT) [facility] [id number] IGG <9.4 <15.0 (Negative) U/mL [facility] LAB MED/PATH [address] Beta 2 GP1 Ab IgM <9.4 <15.0 (Negative) U [facility] LAB MED/PATH [place] Blood 12/28/2024 1:27 PM EDT 12/28/2024 1:43 PM EDT Yancy Hutchinson MD LAB BLOOD BKR ORDERABLES Final Result [facility] LAB MED/PATH [address] [place] [address] * Lupus anticoagulant panel (12/28/2024 1:27 PM EDT) [facility] Lupus Anticoagulant Tech Interpretation SEE NOTE [facility] DPT OF LAB MED AND PAT+ Comment: (NOTE) No evidence of a lupus anticoagulant based on results of Prothrombin Time (PT), Activated Partial Thromboplastin Time (APTT), and Dilute Russells Viper Venom Time (DRVVT). NOTE: Interpretation not reviewed by physician. Prothrombin Time (PT) 11.5 9.4 - 12.5 sec [facility] DPT OF LAB MED AND PAT+ INR 1.1 0.9 - 1.1 [facility] D[facility] OF LAB MED AND PAT+ Comment: (NOTE) ADDITIONAL INFORMATION Standard intensity warfarin therapeutic range: 2.0 to 3.0 High intensity warfarin therapeutic range: 2.5 to 3.5 Activated Partial Thromboplastin Time 27 25 - 37 sec [facility] D[facility] OF LAB MED AND PAT+ DRVVT Screen Ratio 0.98 <1.20 ratio [facility] OF LAB MED AND PAT+ Blood 12/28/2024 1:27 PM EDT 12/28/2024 1:43 PM EDT Yancy Hutchinson MD LAB BLOOD BKR ORDERABLES Final Result [facility] D[facility] OF LAB MED AND PAT+ [address] [place] [address] * Anti-cardiolipin antibodies (12/28/2024 1:27 PM EDT) PHOSPHOLIPID IGM,S <9.4 <15.0 (Negative) [facility] MED/PATH [address] PHOSPHOLIPID IGG, S <9.4 <15.0 (Negative) GPL [facility] LAB MED/PATH [address] Blood 12/28/2024 1:27 PM EDT 12/28/2024 1:43 PM EDT Yancy Hutchinson MD LAB BLOOD BKR ORDERABLES Final Result Performing Organization Address [facility] Co de Phone Number [facility] LAB MED/[address] [place] [address] * (ABNORMAL) Sedimentation rate (ESR) (12/28/2024 1:27 PM EDT) Pathologist [facility] ESR 33(H) 0 - 20 mm/h [facility] Blood 12/28/2024 1:27 PM EDT 12/28/2024 1:41 PM EDT Yancy Hutchinson MD LAB BLOOD BKR ORDERABLES Final Result Performing Organization Address City/[facility]/ZIP Co de Phone Number [facility] [address] [place] [address] * CBC and differential (12/28/2024 1:27 PM EDT) WBC 8.56 4.00 - 11.00 K/uL [facility] RBC 4.76 4.00 - 5.20 M/uL [facility] HGB 14.1 12.0 - 16.0 g/dL [facility] HCT 41.6 36.0 - 46.0 % [facility] PLT 287 150 - 450 K/uL [facility] MCV 87.4 80.0 - 100.0 fL [facility] MCH 29.6 27.0 - 31.0 pg [facility] MCHC 33.9 32.0 - 36.0 g/dL [facility] RDW 13.1 11.5 - 14.5 % [facility] MPV 9.6 8.4 - 12.0 fL [facility] NRBC 0.00 0.00 /100 WBCs [facility] ABSOLUTE NRBC 0.00 0.00 K/uL [facility] DIFF METHOD Auto [facility] NEUTS 68.2 48.0 - 76.0 % [facility] LYMPHS 22.8 18.0 - 41.0 % [facility] MONOS 6.2 4.0 - 11.0 % [facility] EOS 2.0 0.0 - 5.0 % [facility] BASOS 0.4 0.0 - 1.5 % [facility] Granulocytes, immature (%) 0.4 0.0 - 0.9 % [facility] ABSOLUTE NEUTS 5.85 1.92 - 7.60 K/uL [facility] ABSOLUTE LYMPHS 1.95 0.72 - 4.10 K/uL [facility] ABSOLUTE MONOS 0.53 0.16 - 1.10 K/uL [facility] ABSOLUTE EOS 0.17 0.00 - 0.50 K/uL [facility] ABSOLUTE BASOS 0.03 0.00 - 0.15 K/uL [facility] Granulocytes, immature 0.03 0.00 - 0.09 K/uL [facility] Blood 12/28/2024 1:27 PM EDT 12/28/2024 1:41 PM EDT us Yancy Hutchinson MD LAB BLOOD BKR ORDERABLES Final Result [address] [address] * Rheumatoid factor (12/28/2024 1:27 PM EDT) RHEUMATOID FACTOR <10.0 0.0 - 14.0 IU/ml [facility] Blood 12/28/2024 1:27 PM EDT 12/28/2024 1:41 PM EDT Yancy Hutchinson MD LAB BLOOD BKR ORDERABLES Final Result Performing Organization Address City/[facility]/ZIP Co de Phone Number [address] [address] * Complement C3 (12/28/2024 1:27 PM EDT) C3 144 81 - 157 mg/dl [facility] Blood 12/28/2024 1:27 PM EDT 12/28/2024 1:42 PM EDT Yancy Hutchinson MD LAB BLOOD BKR ORDERABLES Final Result [address] [address] * Complement C4 (12/28/2024 1:27 PM EDT) C4 29 12 - 39 mg/dL [facility] Blood 12/28/2024 1:27 PM EDT 12/28/2024 1:42 PM EDT Yancy Hutchinson MD LAB BLOOD BKR ORDERABLES Final Result [address] [address] * (ABNORMAL) C-Reactive Protein (12/28/2024 1:27 PM EDT) C REACTIVE PROTEIN 12.4(H) 0.0 - 4.0 mg/L [facility] Blood 12/28/2024 1:27 PM EDT 12/28/2024 1:41 PM EDT us Yancy Hutchinson MD LAB BLOOD BKR ORDERABLES Final Result [address] [address] * Antinuclear antibody (GERARDO) (12/28/2024 1:27 PM EDT) GERARDO SCREEN ON HEP 2 Negative Negative [facility] Blood 12/28/2024 1:27 PM EDT 12/28/2024 1:41 PM EDT us Yancy Hutchinson MD LAB BLOOD BKR ORDERABLES Final Result Performing Organization Address [facility] Co de Phone Number [address] [address] * Outside Lab (12/18/2024 2:41 PM EDT) us Historical Provider LAB BLOOD BKR ORDERABLES Final Result * (ABNORMAL) Hemoglobin A1c (10/11/2020 5:42 AM EDT) HEMOGLOBIN A1C 7.3(H) 4.3 - 5.8 % [facility] Blood 10/11/2020 5:42 AM EDT 10/11/2020 6:20 AM EDT us Aileen Wright NP LAB BLOOD BKR ORDERABLE S Final Result Performing Organization Address City/[facility]/ZIP Co de Phone Number [address] [address] from Last 3 Months or Most Recently Relevant to Health Maintenance Insurance ave [address] [place] [address] [facility] e [address] [place] [address] [facility] [address] [place] [address] [facility] [address] [facility] [address] Advance Directives For more information, please contact: [phone] (9AM - 5PM Martina/[facility], Monday-Monday) Documents on File Type Date Recorded Patient Independent Sales Representative Expl anation Healthcare Proxy 2020 2:16 PM * Full Code (Latest Code Status on File) Date Activated Date Inactivated Comments 10/10/2020 6:09 PM Question Answer Comments Code Status Confirmed With: Patient Care Teams Night Monitor Relationship Specialty Start Date End Date Minerva Ferrara NP [address] [place] [address] [place] [address] [email or web address] PCP - General Nurse Practitioner 09/26/23 Additional Source Comments The information contained in this document represents components of the legal health record. It is not the complete legal health record.[facility]
--- OUTSIDE RECORDS SUMMARY | 2025-02-12 09:41 | XMS_ITS | Clinical Summary ---
Demographics Address [address] [place] [address] Home Phone Preferred Language en Marital Status Rastafari Affiliation Unknown Race White Ethnic Group Not or Lati no Author Organization [facility] Address [address] [place] [address] Care Team Providers Care Director Of Business Operations Name Role Phone Unavailable Primary Care Provider [...] Cervical Cancer Screening: P ap Smear 2002 HPV Vaccines (1 - 3-dose SCD M series) 2008 Depression Screening 04/10/2024 COVID-19 Vaccine ( - 2023-2 5 season) 2024 Influenza Vaccine (#1) 2024 RSV Immunization Adult Patie nts (1 - 1-dose 75+ series) 2056 HIB Vaccines Aged Out No longer eligi [...] Documents on File Type Date Recorded Patient Diamond Cleaver Expl anation Health Care Decision (hx) 07/09/2016 AD JOHNNIE DIRECTIVE
--- OUTSIDE RECORDS SUMMARY | 2025-02-12 09:41 | XMS_ITS | Encounter Summary ---
Author Organization [facility] Address [address] [place] [address] [place] [address] Phone Care Team Providers Care Preflight Inspector Name Role Phone Thu Gallardo BAKER APPRENTICE Primary Care Provider + Minerva Ferrara BAKER APPRENTICE Primary Care Provider Encounter Details Date Type Department Care Team (Late st Contact Info) Description 10/10/2020 Procedure Pass [facility], Ct Scan - [facility] [address] [place] [address] Social History Tobacco Use Types Packs/Day Years [...] 10:00 PM EDT Dara Perez, RACHELE * [place] Suicide Severity Rating Scale (Screener/Recent Self-Report) Question Answer Date of Assessment Author 1. Wish to be (Past 1 Month) No 10/10/2020 10:00 PM EDT Blake Holland, RACHELE 2. Non-Specific Active Suici rekha Thoughts (Past 1 Month) No 10/10/2020 10:00 PM EMILYT Dara Holland, RACHELE 6. Suicidal Behavior (Lifetime) No 10:00 PM Dara Calvillo, RACHELE documented as of this encounter Plan of Treatment Upcoming Encounters Date Type Department Care Team (Late st Contact Info) Description 02/17/2025 2:00 PM EST Office Visit [address] [place] [address] Yancy Hutchinson MD [address] [place] [address] Lindy Deutsch, PT [address] [place] [address] 02/24/2025 2:00 PM EST Office Visit [address] [place] [address] Yancy Hutchinson MD [address] [place] [address] Lindy Deutsch, PT [address] [place] [address] 02/26/2025 1:15 PM EST Office Visit [address] [place] [address] Yancy Hutchinson MD [address] [place] [address] Lindy Deutsch, PT [address] [place] [address] 03/03/2025 2:00 PM EST Office Visit [address] [place] [address] Yancy Hutchinson MD [address] [place] [address] Lindy Deutsch, PT [address] [place] [address] 03/10/2025 2:00 PM EST Office Visit [facility] [address] [place] [address] Yancy Hutchinson MD [address] [place] [address] Lindy Deutsch, PT [address] [place] [address] 03/12/2025 1:15 PM EST Office Visit [address] [place] [address] Yancy Hutchinson MD [address] [place] [address] Lindy Deutsch, PT [address] [place] [address] 03/17/2025 2:00 PM EST Office Visit [facility] [address] [place] [address] Yancy Hutchinson MD [address] [place] [address] Lindy Deutsch, PT [address] [place] [address] 03/19/2025 1:15 PM EST Office Visit [facility] [address] [place] [address] Yancy Hutchinson MD [address] [place] [address] [address] [place] [address] Get Lindy, PT [address] [place] [address] 03/27/2025 9:30 AM EST Office Visit [facility] Rheumatology [address] [place] [address] Yancy Hutchinson MD 22 [facility], [address] [place] [address] documented as of this encounter Visit Diagnoses Not on filedocumented in this encounter Care Teams Preflight Inspector Relationship Specialty Start Date End Date Thu Gallardo NP [address] [place] [address] PCP - General Nurse Practitioner 10/10/20 09/25/23 Minerva Ferrara NP [address] [place] [address] [place] [address] [email or web address] PCP - General Nurse Practitioner 09/26/23 documented as of this encounter Additional Source Comments The information contained in this document represents components of the legal health record. It is not the complete legal health record.[facility]
--- OUTSIDE RECORDS SUMMARY | 2025-02-12 09:41 | XMS_ITS | Encounter Summary ---
Author Organization [facility] Address [address] [place] [address] [place] [address] Phone Care Team Providers Care Can Filling Room Sweeper Name Role Phone Thu Gallardo OFFICE EXECUTIVE Primary Care Provider + Minerva Ferrara OFFICE EXECUTIVE Primary Care Provider Encounter Details Date Type Department Care Team (Late st Contact Info) Description 10/10/2020 Procedure Pass [facility], Ct Scan - [facility] [address] [place] [address] Social History Tobacco Use Types Packs/Day Years [...] 10:00 PM EDT Dara Perez, RACHELE * [place] Suicide Severity Rating Scale (Screener/Recent Self-Report) Question Answer Date of Assessment Author 1. Wish to be (Past 1 Month) No 10/10/2020 10:00 PM EDT Blake Holland, RACHELE 2. Non-Specific Active Suici rekha Thoughts (Past 1 Month) No 10/10/2020 10:00 PM EMILYT Dara Holland, RACHELE 6. Suicidal Behavior (Lifetime) No 10:00 PM Dara Calvillo, RAHCELE documented as of this encounter Plan of Treatment Upcoming Encounters Date Type Department Care Team (Late st Contact Info) Description 02/17/2025 2:00 PM EST Office Visit [address] [place] [address] Yancy Hutchinson MD [address] [place] [address] Lindy Deutsch, PT 8 [place] [address] 02/24/2025 2:00 PM EST Office Visit [address] [place] [address] Yancy Hutchinson MD [address] [place] [address] Lindy Deutsch, PT 8 [place] [address] 02/26/2025 1:15 PM EST Office Visit [address] [place] [address] Yancy Hutchinson MD [address] [place] [address] Lindy Deutsch, PT 8 [place] [address] 03/03/2025 2:00 PM EST Office Visit [address] [place] [address] Yancy Hutchinson MD [address] [place] [address] Lindy Deutsch, PT 8 [place] [address] 03/10/2025 2:00 PM EST Office Visit [facility] [address] [place] [address] Yancy Hutchinson MD [address] [place] [address] Lindy Deutsch, PT 8 [place] [address] 03/12/2025 1:15 PM EST Office Visit [address] [place] [address] Yancy Hutchinson MD [address] [place] [address] Lindy Deutsch, PT 8 [place] [address] 03/17/2025 2:00 PM EST Office Visit [facility] [address] [place] [address] Yancy Hutchinson MD [address] [place] [address] Lindy Deutsch, PT 8 [place] [address] 03/19/2025 1:15 PM EST Office Visit [facility] [address] [place] [address] Yancy Hutchinson MD [address] [place] [address] [address] [place] [address] Get Lindy, PT 8 [place] [address] 03/27/2025 9:30 AM EST Office Visit [facility] Rhe[facility]ology [address] [place] [address] Yancy Hutchinson MD 22 [facility], [address] [place] [address] documented as of this encounter Visit Diagnoses Not on filedocumented in this encounter Care Teams Can Filling Room Sweeper Relationship Specialty Start Date End Date Thu Gallardo NP [address] [place] [address] PCP - General Nurse Practitioner 10/10/20 09/25/23 Minerva Ferrara NP [address] [place] [address] [place] [address] [email or web address] PCP - General Nurse Practitioner 09/26/23 documented as of this encounter Additional Source Comments The information contained in this document represents components of the legal health record. It is not the complete legal health record.[facility]
== END 2025-02-12 10:24 | disposition home or self-care (01) ==
PROVIDERS: PCP Nurse Practitioner Family; Visit Provider Physician Assistant
DX: B34.9 Viral infection, unspecified (principal)

== ENCOUNTER 2025-02-12 09:04 | Outpatient (REF) | payer OTHER, SELFPAY ==
[2025-02-12 11:15] LABS: Resp Syncy Virus RNA Qual PCR NEGATIVE (Negative); SARS COV2 PCR INHOUSE NEGATIVE (Negative)
== END 2025-02-12 09:05 | disposition home or self-care (01) ==
LOC: HO.LAB 09:04
PROVIDERS: PCP Nurse Practitioner Family; Visit Provider Physician Assistant
DX: B34.9 Viral infection, unspecified (principal); Z87.891 Personal history of nicotine dependence
CPT/HCPCS: 87637; 99212

== ENCOUNTER 2025-03-03 10:08 | Outpatient (AMB) | payer OTHER, SELFPAY ==
--- NOTE | 2025-03-03 10:21 | A.OFFVIS_ITS ---
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 No complaints. Last Pap/HPV was many years ago, no history of abnormal Pap smears for last 25 years and the patient is status post hysterectomy for benign disease Last Mammogram was in 12/02 was BI-RADS 1 Last screening colonoscopy was 03/03 ON LICENSE OF [facility] Medical History Postoperative pain Acute respiratory disease Nausea with vomiting, unspecified Nephrolithiasis Periodic limb movements of sleep Anemia Asthma Sleep apnea Migraine Sinusitis Breast pain, left Hypertension Sleep apnea Bipolar 1 disorder Depression Anxiety delivery delivered Diabetes Sciatica Kidney infection Kidney stones HTN (hypertension) Fibromyalgia Lupus Surgical History S/P hemorrhoidectomy (10/28/24) Hx of colonoscopy History of esophagogastroduodenoscopy (EGD) H/O section H/O: hysterectomy Family History Maternal Grandmother HTN (hypertension) Diabetes Cancer Mother Ovarian cancer Other FH: mental illness Substance use Social History Household Members: Spouse Housing: Apartment Are you a primary medicare coordinator to a significant other at home: No Do you presently have visiting nurse or other home services: No Alcohol intake: current Alcohol intake frequency: holidays/special occasions only Alcohol type: hard liquor Patient Tobacco Use Status: Former Tobacco user Tobacco use type: Smokeless Tobacco e-Cigarette/Vaping Use: Currently Using Substance Use Type: Marijuana Advance Directives Date on File: 02/02/24 service: No Current occupational status: employed 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 Current occupational exposures/hazards: No Cognitive needs: No Hearing needs: No Vision needs: Yes (glasses) Female Reproductive History Menstrual Date of Mammogram: 11/19/24 (bi rad 1) Review of Systems Const All systems reviewed & are unremarkable except as noted in HPI and below Card Reports as per HPI and Reports no additional complaints Resp Reports as per HPI and Reports no additional complaints GI Reports as per HPI and Reports no additional complaints Reports as per HPI Physical Exam Vital Signs: Last Vital Signs BP 124/72 03/03/25 10:38 BMI result Body Mass Index 36.3 Const General: cooperative, healthy appearing and comfortable General: Yes bladder normal to palpation External Female Exam: No lesion Speculum Exam - Vagina: normal appearance of the vagina, normal vaginal discharge and not erythematous Speculum Exam - Cervix: Cervix absent Bimanual exam- vagina & uterus: bladder normal to palpation and uterus absent Bimanual Exam- Adnexa, other: Other (No masses detected) Assessment & Plan Assessment & Plan (1) Well woman exam: Code(s): Z01.419 - Encounter for gynecological examination (general) (routine) without abnormal findings Category: Medical Plan: Cotesting done. Mammogram ordered. Counseled the patient about the recommended dietary allowance of 1000 mg of Calcium & 600 IU of vitamin D. The patient was instructed to perform monthly self-breast exams and to schedule an annual exam in a year; All questions answered and the patient verbalized understanding. Instructed the patient to schedule annual exam in a year (2) Hot flashes: Code(s): R23.2 - [place] Category: Medical Plan: FSH LH ordered, instructions given the patient to schedule a follow-up appointment within 2-3 weeks Orders: Orders Lutenizing Hormone Today R23.2 - [place] Follicle Stimulating Hormone Today R23.2 - [place] Coding Level of Care Code Est Pt Prev Care 40-64y([id number]) Diagnoses Well woman exam Z01.419 Hot flashes R23.2
[2025-03-03 10:38] VITALS: BP 124/72; BMI 36.3
--- OUTSIDE RECORDS SUMMARY | 2025-03-03 12:16 | XMS_ITS | Encounter Summary ---
Author Organization [facility] Address [address] [place] [address] Phone Care Team Providers Care Compressor Operator Portable Name Role Phone Thu Gallardo ENGINEERING CONSULTANT Primary Care Provider + Minerva Ferrara ENGINEERING CONSULTANT Primary Care Provider Encounter Details Date Type Department Care Team (Late st Contact Info) Description 10/10/2020 Procedure Pass [facility] [address] [place] [address] Social History Tobacco Use Types Packs/Day Years [...] 10:00 PM EDT Dara Perez RN * [place] Suicide Severity Rating Scale (Screener/Recent Self-Report) Question [...] Care Team (Late st Contact Info) Description 03/03/2025 2:00 PM EST Office Visit [address] [address] Yancy Hutchinson MD [address] [place] [address] Lindy Deutsch, PT 8 [place] [address] 03/10/2025 2:00 PM EST Office Visit [address] [place] [address] Yancy Hutchinson MD [address] [place] [address] Lindy Deutsch, PT 8 [place] [address] 03/17/2025 2:00 PM EST Office Visit [address] [place] [address] Yancy Hutchinson MD [address] [place] [address] Lindy Deutsch, PT 8 [place] [address] 03/19/2025 1:15 PM EST Office Visit [address] [place] [address] Yancy Hutchinson MD [address] [place] [address] Lindy Deutsch, PT 8 [place] [address] 03/25/2025 1:30 PM EST Office Visit [facility] [address] [place] [address] Yancy Hutchinson MD 22 [facility], [address] [address] Lindy Deutsch, PT 8 [place] [address] 03/27/2025 9:30 AM EST Office Visit [facility] Rheumatology [address] [place] [address] Yancy Hutchinson MD 22 [facility], [address] [address] documented as of this encounter Visit Diagnoses Not on filedocumented in this encounter Care Teams Compressor Operator Portable Relationship Specialty Start Date End Date Thu Gallardo NP [address] [place] [address] PCP - General Nurse Practitioner 10/10/20 09/25/23 Minerva Ferrara NP [address] [place] [address] [place] [address] [email or web address] PCP - General Nurse Practitioner 09/26/23 documented as of this encounter Additional Source Comments The information contained in this document represents components of the legal health record. It is not the complete legal health record.[facility]
--- OUTSIDE RECORDS SUMMARY | 2025-03-03 12:16 | XMS_ITS | Clinical Summary ---
Demographics Address [address] [place] [address] Home Phone Preferred Language en Marital Status Christianity Affiliation Unknown Race White Ethnic Group Not or Lati no Author Organization [facility] Address [address] [place] [address] Care Team Providers Care Casualty Claims Supervisor Name Role Phone Unavailable Primary Care Provider [...] Depression Screening 04/10/2024 COVID-19 Vaccine ( - 2024-2 6 season) 2024 Influenza Vaccine (#1) 2024 RSV [...] Documents on File Type Date Recorded Patient Datastage Consultant Expl anation Health Care Decision (hx) 07/09/2016 AD JOHNNIE DIRECTIVE
--- OUTSIDE RECORDS SUMMARY | 2025-03-03 12:16 | XMS_ITS | Encounter Summary ---
Author Organization [facility] Address [address] [place] [address] [place] [address] Phone Care Team Providers Care Chief Ultrasound Technologist Name Role Phone Thu Gallardo CLINICAL REVIEW SPECIALIST Primary Care Provider + Minerva Ferrara CLINICAL REVIEW SPECIALIST Primary Care Provider Encounter Details Date Type Department Care Team (Late st Contact Info) Description 10/10/2020 Procedure Pass [facility], Ct Scan - [facility] [address] [place] [address] Social History Tobacco Use Types Packs/Day Years [...] 10:00 PM EDT Dara Perez, RACHELE * [place] Suicide Severity Rating Scale (Screener/Recent Self-Report) Question Answer Date of Assessment Author 1. Wish to be (Past 1 Month) No 10/10/2020 10:00 PM EDT Blake Holland, RACHELE 2. Non-Specific Active Suici rekha Thoughts (Past 1 Month) No 10/10/2020 10:00 PM Dara Calvillo, RACHELE 6. Suicidal Behavior (Lifetime) No 10:00 PM Dara Calvillo, RACHELE documented as of this encounter Plan of Treatment Upcoming Encounters Date Type Department Care Team (Late st Contact Info) Description 03/03/2025 2:00 PM EST Office Visit [address] [place] [address] Yancy Hutchinson MD [address] [place] [address] Lindy Deutsch, PT 8 [place] [address] 03/10/2025 2:00 PM EST Office Visit [address] [place] [address] Yancy Hutchinson MD [address] [place] [address] Lindy Deutsch, PT 8 [place] [address] 03/17/2025 2:00 PM EST Office Visit [address] [place] [address] Yancy Hutchinson MD [address] [place] [address] Lindy Deutsch, PT 8 [place] [address] 03/19/2025 1:15 PM EST Office Visit [address] [place] [address] Yancy Hutchinson MD [address] [place], [place] [address], [place] [address] Lindy Deutsch, PT 8 [place] [address] 03/25/2025 1:30 PM EST Office Visit [facility] [address] [place] [address] Yancy Hutchinson MD [address] [address] Lindy Deutsch, PT 8 [place] [address] 03/27/2025 9:30 AM EST Office Visit [facility] Rhe[facility] [address] [place] [address] Yancy Hutchinson MD [address] [address] documented as of this encounter Visit Diagnoses Not on filedocumented in this encounter Care Teams Chief Ultrasound Technologist Relationship Specialty Start Date End Date Thu Gallardo NP [address] [place] [address] PCP - General Nurse Practitioner 10/10/20 09/25/23 Minerva Ferrara NP [address] [place] [address] [place] [address] [email or web address] PCP - General Nurse Practitioner 09/26/23 documented as of this encounter Additional Source Comments The information contained in this document represents components of the legal health record. It is not the complete legal health record.[facility]
--- OUTSIDE RECORDS SUMMARY | 2025-03-03 12:16 | XMS_ITS | Encounter Summary ---
Author Organization [facility] Address [address] [place] [address] [place] [address] Phone Care Team Providers Care Lumpia Wrapper Maker Name Role Phone Thu Gallardo SERVICE DEPARTMENT MANAGER Primary Care Provider + Minerva Ferrara SERVICE DEPARTMENT MANAGER Primary Care Provider Encounter Details Date Type Department Care Team (Late st Contact Info) Description 10/10/2020 Procedure Pass [facility], Ct Scan - [facility] 30 [place] [address] Social History Tobacco Use Types Packs/Day Years [...] 10:00 PM EDT Dara Perez, RACHELE * [place] Suicide Severity Rating Scale (Screener/Recent Self-Report) Question [...] Description 03/03/2025 2:00 PM EST Office Visit [address] [place] [address] Yancy Hutchinson MD [address] [place] [address] Lindy Deutsch, PT 8 [place] [address] [email or web address] 03/10/2025 2:00 PM EST Office Visit [address] [place] [address] Yancy Hutchinson MD [address] [place] [address] [email or web address] Lindy Deutsch, PT 8 [place] [address] [email or web address] 03/17/2025 2:00 PM EST Office Visit [address] [place] [address] Yancy Hutchinson MD [address] [place] [address] Lindy Deutsch, PT 8 [place] [address] [email or web address] 03/19/2025 1:15 PM EST Office Visit [address] [place] [address] Yancy Hutchinson MD [address] [place], [place] [address], [place] [address] Lindy Deutsch, PT 8 [place] [address] 03/25/2025 1:30 PM EST Office Visit [facility] [address] [place] [address] Yancy Hutchinson MD [address] [address] Lindy Deutsch, PT 8 [place] [address] 03/27/2025 9:30 AM EST Office Visit [facility] [address] [place] [address] Yancy Hutchinson MD [address] [address] documented as of this encounter Visit Diagnoses Not on filedocumented in this encounter Care Teams Lumpia Wrapper Maker Relationship Specialty Start Date End Date Thu Gallardo NP [address] [place] [address] PCP - General Nurse Practitioner 10/10/20 09/25/23 Minerva Ferrara NP [address] [place] [address] [place] [address] [email or web address] PCP - General Nurse Practitioner 09/26/23 documented as of this encounter Additional Source Comments The information contained in this document represents components of the legal health record. It is not the complete legal health record.[facility]
--- OUTSIDE RECORDS SUMMARY | 2025-03-03 12:17 | XMS_ITS | Encounter Summary ---
Author Organization [facility] Address [address] [place] [address] Phone Care Team Providers Care Patternmaker All Around Name Role Phone Thu Gallardo DIORAMIST Primary Care Provider + Minerva Ferrara DIORAMIST Primary Care Provider Encounter Details Date Type Department Care Team (Late st Contact Info) Description 10/10/2020 Procedure Pass [facility], [facility] [address] [place] [address] Social History Tobacco Use Types Packs/Day Years [...] Risk Indicated 10/10/2020 10:00 PM EDT Dara ePrez, RACHELE * [place] Suicide Severity Rating Scale (Screener/Recent Self-Report) Question [...] Description 03/03/2025 2:00 PM EST Office Visit [address] [place] [address] Yancy Hutchinson MD [address] [place] [address] Lindy Deutsch, PT 8 [place] [address] 03/10/2025 2:00 PM EST Office Visit [address] [place] [address] Yancy Hutchinson MD [address] [place] [address] Lindy Deutsch, PT 8 [place] [address] 03/17/2025 2:00 PM EST Office Visit [address] [place] [address] Yancy Hutchinson MD [address] [place] [phone] Lindy Deutsch, PT 8 [place] [address] 03/19/2025 1:15 PM EST Office Visit [address] [place] [address] Yancy Hutchinson MD [address] [address] GetLindy, PT 8 [place] [address] 03/25/2025 1:30 PM EST Office Visit [facility] [address] [place] [address] Yancy Hutchinson MD [address] [address] Lindy Deutsch, PT 8 [place] [address] 03/27/2025 9:30 AM EST Office Visit [facility] Rheumatology [address] [place] [address] Yancy Hutchinson MD [address] [address] documented as of this encounter Visit Diagnoses Not on filedocumented in this encounter Care Teams Patternmaker All Around Relationship Specialty Start Date End Date Thu Gallardo NP [address] [place] [address] PCP - General Nurse Practitioner 10/10/20 09/25/23 Minerva Ferrara NP [address] [place] [address] [place] [address] [email or web address] PCP - General Nurse Practitioner 09/26/23 documented as of this encounter Additional Source Comments The information contained in this document represents components of the legal health record. It is not the complete legal health record.[facility]
--- OUTSIDE RECORDS SUMMARY | 2025-03-03 12:17 | XMS_ITS | Encounter Summary ---
Author Organization [facility] Address [address] [place] [address] Phone Care Team Providers Care Ceramic Chemist Name Role Phone Minerva Ferrara FLOATER OPERATOR Primary Care Provider Encounter Details Date Type Department Care Team (Late st Contact Info) Description 08/27/2024 Telephone CD Pulmonary, Allergy and Critical Care Medicine [address] [facility] [place], [place] [id number] Cathy [email or web address] Social [...] Department Care Team (Late Contact Info) Description 03/03/2025 2:00 PM EST Office Visit [facility] [address] [place] [address] Yancy Hutchinson MD [address] [place] [address] Lindy Deutsch, PT 8 [place] [address] 03/10/2025 2:00 PM EST Office Visit [address] [address] Yancy Hutchinson MD [address] [place] [address] Lindy Deutsch, PT 8 [place] [address] 03/17/2025 2:00 PM EST Office Visit [address] [address] Yancy Hutchinson MD [address] [place] [address] Lindy Deutsch, PT 8 [place] [address] 03/19/2025 1:15 PM EST Office Visit [facility] [address] [place] [address] Yancy Hutchinson MD [address] [place] [address] Lindy Deutsch, PT 8 [place] [address] 03/25/2025 1:30 PM EST Office Visit [facility] [address] [place] [address] Yancy Hutchinson MD [address] [facility] [address] [place] [address] Lindy Deutsch, PT 8 [place] [address] 03/27/2025 9:30 AM EST Office Visit [facility] Rheumatology [address] [place] [address] Yancy Hutchinson MD [address] [facility] [place] [address] [email or web address] documented as of this encounter Visit Diagnoses Not on filedocumented in this encounter Care Teams Ceramic Chemist Relationship Specialty Start Date End Date Minerva Ferrara NP [address] [place] [address] [place] [address] [email or web address] PCP - General Nurse Practitioner 09/26/23 documented as of this encounter Additional Source Comments The information contained in this document represents components of the legal health record. It is not the complete legal health record.[facility]
--- OUTSIDE RECORDS SUMMARY | 2025-03-03 12:18 | XMS_ITS | Clinical Summary ---
Demographics Address [address] [place] [address] [address] [place] [address] Home Phone Mobile Phone Email Address Preferred Language Mexican Marital Status /Civil Union Taoism Affiliation Unknown Race White Ethnic Group Not or Lati no Author Organization [facility] Address [address] [place] [address] Phone Care Team Providers Care Podiatry Assistant Name Role Phone Minerva Ferrara STEM CLEANING MACHINE FEEDER Primary Care Provider Allergies Active Allergy Reactions [...] numbness MRI and echocardiogram without acute findings, [facility] neurologist feels this may be migraine and patient should follow-up with neurologist within 6 weeks Encounters Date Type Department Care Team Description 02/24/2025 2:00 PM EST Office Visit [facility] [address] [place] [address] Yancy Hutchinson MD Kenny, Erin, PT Fibromyalgia (Primary Dx); Muscle weakness (generalized) 01/01/2025 Orders Only [facility] Rheumatology [address] [place] [address] ProviderWilma MD 12/28/2024 1:26 PM EDT - 12/28/2024 11:59 PM EDT Hospital Encounter [facility] Main [address] [place] [address] Yancy Hutchinson MD Discharge Disposition: Home or Self Care 12/24/2024 11:00 AM EDT Office Visit [facility] Rheumatology [address] [place] [address] Yancy Hutchinson MD Undifferentiated connective tissue disease (Primary Dx); Fibromyalgia; Bilateral carpal tunnel syndrome; Lymphadenopathy, axillary 12/24/2024 Telephone [facility] Rheumatology - Virtual Department [address] [place] [address] Yancy Hutchinson MD Appointment from Last 3 [...] Description 03/03/2025 2:00 PM EST Office Visit [address] [place] [address] Yancy Hutchinson MD [address] [place] [address] Lindy Deutsch, PT [address] [place] [address] 03/10/2025 2:00 PM EST Office Visit [address] [place] [address] Yancy Hutchinson MD [address] [place] [phone] Lindy Deutsch, PT [address] [place] [address] 03/17/2025 2:00 PM EST Office Visit [address] [place] [address] Yancy Hutchinson MD [address] [place] [address] Lindy Deutsch, PT [address] [place] [address] 03/19/2025 1:15 PM EST Office Visit [facility] [address] [place] [address] [place] [address] Yancy Hutchinson MD [address] [place] [address] Linyd Deutsch, PT 8 [place] [address] 03/25/2025 1:30 PM EST Office Visit [address] [place] [address] Yancy Hutchinson MD [address] [place] [phone] Lindy Deutsch, PT [address] [place] [address] 03/27/2025 9:30 AM EST Office Visit [facility] Rheumatology [address] [place] [address] Yancy Hutchinson MD [address] [place] [address] Health Maintenance Due Date Last Done Comments DEPRESSION SCREENING 1993 SMOKING Hx and SMOKELESS TOBACCO SCREENING 1994 HEPATITIS C SCREENING 10/14/1999 HIV ONE-TIME SCREENING (18-65 YEARS) 10/14/1999 PNEUMOCOCCAL VACCINES (0-49 years) (1 of 2 - PCV) 2000 PAP SMEAR 2002 DIABETIC EYE EXAM 10/10/2020 HEMOGLOBIN A1C 04/13/2021 10/11/2020 MAMMOGRAM 2021 INFLUENZA VACCINE (#1) 2024 01/02/2024, 2022 COVID-19 VACCINE (2 - 2024- season) 2024 08/14/2020 BLOOD PRESSURE 06/23/2025 12/24/2024 CREATININE LEVEL 12/28/2025 12/28/2024, / 08/2020, 10/11/2020, Additional history exists POTASSIUM LEVEL [...] 1:27 PM EDT Undifferentiated connective tissue disease [id number] I ANTIBODIES Routine 12/28/2024 1:27 PM EDT [...] 1:27 PM EDT Undifferentiated connective tissue disease FIXTURE REPAIRER FABRICATOR ANTIBODY Routine 12/28/2024 1:27 PM EDT Undifferentiated [...] Recently Relevant to Health Maintenance Results * FIXTURE REPAIRER FABRICATOR ANTIBODY (12/28/2024 1:27 PM EDT) Pathologist [facility] FIXTURE REPAIRER FABRICATOR AB, IGG 0.6 <1.0 (Negative) [facility]PATH [address] Blood 12/28/2024 1:27 PM EDT 12/28/2024 1:43 PM EDT us Yancy Hutchinson MD LAB BLOOD ORDERABLES Cindy fortune Result [facility]/PATH [address] [place] [address] * SS-A/SS-B antibodies (12/28/2024 1:27 PM EDT) ANTI-RO ANTIBODY 2.37 0.00 - 19.99 OD UNIT [facility] RO INTERPRETATION Negative Negative [facility] ANTI-LA ANTIBODY 5.17 0.00 - 19.99 OD UNIT [facility] LA INTERPRETATION Negative Negative [facility] Blood 12/28/2024 1:27 PM EDT 12/28/2024 1:42 PM EDT us Yancy Hutchinson MD LAB BLOOD ORDERABLES Cindy l Result [facility] [address] [place] [address] * (ABNORMAL) Comprehensive metabolic panel (12/28/2024 1:27 PM EDT) SODIUM 136 133 - 146 mmol/L [facility] POTASSIUM 3.9 3.3 - 5.1 mmol/L [facility] CHLORIDE 102 96 - 108 mmol/L [facility] CO2 22 21 - 35 mmol/L [facility] BUN 15 6 - 19 mg/dL [facility] CREATININE 0.60 0.5 - 1.5 mg/dL [facility] GLUCOSE 207(H) 70 - 99 mg/dL [facility] ALBUMIN 4.0 3.9 - 4.8 g/dL [facility] TOTAL PROTEIN 7.1 6.5 - 8.0 g/dL [facility] CALCIUM 8.9 8.4 - 10.3 mg/dL [facility] ALKALINE PHOSPHATASE 145(H) 39 - 117 U/L [facility] TOTAL BILIRUBIN <0.2 0.0 - 1.2 mg/dL [facility] AST 28 0 - 37 U/L [facility] ALT 31 0 - 40 U/L [facility] GLOBULIN 3.1 1 - 4.8 g/dL [facility] EGFR 114 >59 mL/min/1.7 3m2 [facility] Comment:Estimated glomerular filtration rate calculated using the CKD-EPI refit equation. ANION GAP 16 10 - 20 mmol/L [facility] Blood 12/28/2024 1:27 PM EDT 12/28/2024 1:41 PM EDT Yancy Hutchinson MD LAB BLOOD BKR ORDERABLES Final Result Performing Organization Address City/[facility]/ZIP Co de Phone Number [address] [address] * U1RNP and Kruger antibodies (12/28/2024 1:27 PM EDT) ANTI-SM ANTIBODY 7.24 0.00 - 19.99 OD UNIT [facility] SM INTERPRETATION Negative Negative [facility] ANTI-FIXTURE REPAIRER FABRICATOR ANTIBODY 5.92 0.00 - 19.99 OD UNIT [facility] FIXTURE REPAIRER FABRICATOR INTERPRETATION Negative Negative [facility] Blood 12/28/2024 1:27 PM EDT 12/28/2024 1:42 PM EDT Yancy Hutchinson MD LAB BLOOD ORDERABLES Cindy l Result Performing Organization Address City/[facility] Co de Phone Number [address] [address] * CCP IgG antibodies (12/28/2024 1:27 PM EDT) ANTI-CCP IGG <8 0 - 16 U/mL [facility] Blood 12/28/2024 1:27 PM EDT 12/28/2024 1:42 PM EDT Yancy Hutchinson MD LAB BLOOD BKR ORDERABLES Final Result Performing Organization Address City/[facility]/ZIP Co de Phone Number [address] [address] * Scl-70 antibody (12/28/2024 1:27 PM EDT) SCL 70 AB, IGG <0.2 <1.0 (Negative) U [facility] MED/PATH [address] Blood 12/28/2024 1:27 PM EDT 12/28/2024 1:43 PM EDT Yancy Hutchinson MD LAB BLOOD ORDERABLES Cindy l Result [facility] LAB MED/PATH [address] [place] [address] * Double stranded DNA antibodies (12/28/2024 1:27 PM EDT) [facility] ANTI DSDNA ANTIBODY Negative at 1:10 [facility] Comment: Dequan Avalos M.D., Director Clinical Immunology Laboratory [id number] Normal: Negative at 1:10 To interpret a negative test for anti-bay mills or double stranded DNA antibodies in a [...] BKR ORDERABLES Final Result Performing Organization Address [facility]/ZIP Co de Phone Number [facility] [address] [place] [address] * Lvhl-9-ohmeztyrsrid I antibodies (12/28/2024 1:27 PM EDT) [facility] [id number] IGG <9.4 <15.0 (Negative) U/mL [facility]PATH [address] Beta 2 GP1 Ab IgM <9.4 <15.0 (Negative) U [facility]/PATH [address] Blood 12/28/2024 1:27 PM EDT 12/28/2024 1:43 PM EDT Yancy Hutchinson MD LAB BLOOD BKR ORDERABLES Final Result [facility] LAB MED/PATH [address] [place] [address] * Lupus anticoagulant panel (12/28/2024 1:27 PM EDT) [facility] Lupus Anticoagulant Tech Interpretation SEE NOTE [facility] DPT OF LAB MED AND PAT+ Comment: (NOTE) No evidence of a lupus anticoagulant based on results of Prothrombin Time (PT), Activated Partial Thromboplastin Time (APTT), and Dilute Russells Viper Venom Time (DRVVT). NOTE: Interpretation not reviewed by physician. Prothrombin Time (PT) 11.5 9.4 - 12.5 sec [facility] DPT OF LAB MED AND PAT+ INR 1.1 0.9 - 1.1 [facility] DPT OF LAB MED AND PAT+ Comment: (NOTE) ADDITIONAL INFORMATION Standard intensity warfarin therapeutic range: 2.0 to 3.0 High intensity warfarin therapeutic range: 2.5 to 3.5 Activated Partial Thromboplastin Time 27 25 - 37 sec [facility] DPT OF LAB MED AND PAT+ DRVVT Screen Ratio 0.98 <1.20 ratio [facility] DPT OF LAB MED AND PAT+ Blood 12/28/2024 1:27 PM EDT 12/28/2024 1:43 PM EDT Yancy Hutchinson MD LAB BLOOD BKR ORDERABLES Final Result Performing Organization Address [facility] Co de Phone Number [facility] DPT OF LAB MED AND PAT+ [address] [place] [address] * Anti-cardiolipin antibodies (12/28/2024 1:27 PM EDT) PHOSPHOLIPID IGM,S <9.4 <15.0 (Negative) MPL [facility]/PATH [address] PHOSPHOLIPID IGG, S <9.4 <15.0 (Negative) GPL [facility]/PATH [address] Blood 12/28/2024 1:27 PM EDT 12/28/2024 1:43 PM EDT Yancy Hutchinson MD LAB BLOOD BKR ORDERABLES Final Result Performing Organization Address [facility]/ZIP Co de Phone Number [facility] MED/PATH [address] [place] [address] * (ABNORMAL) Sedimentation rate (ESR) (12/28/2024 1:27 PM EDT) ESR 33(H) 0 - 20 mm/h [facility] Blood 12/28/2024 1:27 PM EDT 12/28/2024 1:41 PM EDT us Yancy Hutchinson MD LAB BLOOD BKR ORDERABLES Final Result [facility] [address] [place] [address] * CBC and differential (12/28/2024 1:27 PM EDT) WBC 8.56 4.00 - 11.00 K/uL [facility] RBC 4.76 4.00 - 5.20 M/uL [facility] HGB 14.1 12.0 - 16.0 g/dL [facility] HCT 41.6 36.0 - 46.0 % [facility] PLT 287 150 - 450 K/uL [facility] MCV 87.4 80.0 - 100.0 fL [facility] MCH 29.6 27.0 - 31.0 pg [facility] MCHC 33.9 32.0 - 36.0 g/dL [facility] RDW 13.1 11.5 - 14.5 % [facility] MPV 9.6 8.4 - 12.0 fL [facility] NRBC 0.00 0.00 /100 WBCs [facility] ABSOLUTE NRBC 0.00 0.00 K/uL [facility] DIFF METHOD Auto [facility] NEUTS 68.2 48.0 - 76.0 % [facility] LYMPHS 22.8 18.0 - 41.0 % [facility] MONOS 6.2 4.0 - 11.0 % [facility] EOS 2.0 0.0 - 5.0 % [facility] BASOS 0.4 0.0 - 1.5 % [facility] Granulocytes, immature (%) 0.4 0.0 - 0.9 % [facility] ABSOLUTE NEUTS 5.85 1.92 - 7.60 K/uL [facility] ABSOLUTE LYMPHS 1.95 0.72 - 4.10 K/uL [facility] ABSOLUTE MONOS 0.53 0.16 - 1.10 K/uL [facility] ABSOLUTE EOS 0.17 0.00 - 0.50 K/uL [facility] ABSOLUTE BASOS 0.03 0.00 - 0.15 K/uL [facility] Granulocytes, immature 0.03 0.00 - 0.09 K/uL [facility] Blood 12/28/2024 1:27 PM EDT 12/28/2024 1:41 PM EDT Yancy Hutchinson MD LAB BLOOD BKR ORDERABLES Final Result [address] [address] * Rheumatoid factor (12/28/2024 1:27 PM EDT) RHEUMATOID FACTOR <10.0 0.0 - 14.0 IU/ml [facility] Blood 12/28/2024 1:27 PM EDT 12/28/2024 1:41 PM EDT Yancy Hutchinson MD LAB BLOOD BKR ORDERABLES Final Result Performing Organization Address City/[facility]/ZIP Co de Phone Number [address] [address] * Complement C3 (12/28/2024 1:27 PM EDT) C3 144 81 - 157 mg/dl [facility] Blood 12/28/2024 1:27 PM EDT 12/28/2024 1:42 PM EDT Yancy Hutchinson MD LAB BLOOD BKR ORDERABLES Final Result [address] [address] * Complement C4 (12/28/2024 1:27 PM EDT) C4 29 12 - 39 mg/dL [facility] Blood 12/28/2024 1:27 PM EDT 12/28/2024 1:42 PM EDT Yancy Hutchinson MD LAB BLOOD BKR ORDERABLES Final Result [address] [address] * (ABNORMAL) C-Reactive Protein (12/28/2024 1:27 PM EDT) Pathologist [facility] C REACTIVE PROTEIN 12.4(H) 0.0 - 4.0 mg/L [facility] Blood 12/28/2024 1:27 PM EDT 12/28/2024 1:41 PM EDT Yancy Hutchinson MD LAB BLOOD BKR ORDERABLES Final Result Performing Organization Address [facility]/ZIP Co de Phone Number [address] [address] * Antinuclear antibody (GERARDO) (12/28/2024 1:27 PM EDT) [facility] GERARDO SCREEN ON HEP 2 Negative Negative [facility] Blood 12/28/2024 1:27 PM EDT 12/28/2024 1:41 PM EDT Yancy Hutchinson MD LAB BLOOD BKR ORDERABLES Final Result Performing Organization Address [facility]/ZIP Co de Phone Number [address] [address] * Outside Lab (12/18/2024 2:41 PM EDT) Wilma Helton MD LAB BLOOD BKR ORDERABLES Final Result * (ABNORMAL) Hemoglobin A1c (10/11/2020 5:42 AM EDT) HEMOGLOBIN A1C 7.3(H) 4.3 - 5.8 % [facility] Blood 10/11/2020 5:42 AM EDT 10/11/2020 6:20 AM EDT us Aileen Wright STEM CLEANING MACHINE FEEDER LAB BLOOD BKR ORDERABLE S Final Result [facility] [address] [place] [address] from Last 3 Months or Most Recently Relevant to Health Maintenance [place] [address] [address] ACO [facility] [address] [facility] [address] [facility] [address] [place] [address] [facility] [place] [address] Advance Directives For more information, please contact: [phone] (9AM - 5PM Martina/[facility], Monday-Monday) Documents on File Type Date Recorded Patient Manufacturing Group Leader Expl anation Healthcare Proxy 2020 2:16 PM * Full Code (Latest Code Status on File) Date Activated Date Inactivated Comments 10/10/2020 6:09 PM Question Answer Comments Code Status Confirmed With: Patient Care Teams Podiatry Assistant Relationship Specialty Start Date End Date Minerva Ferrara NP [address] [place] [address] [place] [address] [email or web address] PCP - General Nurse Practitioner 09/26/23 Additional Source Comments The information contained in this document represents components of the legal health record. It is not the complete legal health record.[facility]
== END 2025-03-03 11:21 | disposition home or self-care (01) ==
PROVIDERS: PCP Nurse Practitioner Family; Visit Provider Obstetrics & Gynecology
DX: Z01.419 Encounter for gynecological examination (general) (routine) without abnormal findings (principal); R23.2 Flushing
CPT/HCPCS: 99396; 99459

== ENCOUNTER → 2025-03-03 10:08 | Outpatient (BNVA) | payer OTHER, SELFPAY | PROVIDERS: PCP Nurse Practitioner Family; Visit Provider Obstetrics & Gynecology | DX: Z01.419 Encounter for gynecological examination (general) (routine) without abnormal findings (principal); R23.2 Flushing | CPT/HCPCS: 99396 ==

== ENCOUNTER 2025-03-14 14:38 | Outpatient (AMB) | payer OTHER, SELFPAY ==
--- OUTSIDE RECORDS SUMMARY | 2025-03-10 14:00 | XMS_ITS | Encounter Summary ---
Author Organization [facility] Address [address] [facility] [address] [place] [address] Phone Care Team Providers Care Box Spring Maker Name Role Phone Minerva Ferrara NP Primary Care Provider Reason for Visit * Physical Therapy (Within 1 month) - Authorized Specialty Diagnoses / Procedures Referred By Amber vásquez Referred To Contact Physical Therapy Diagnoses Undifferentiated connective tissue disease Yancy Hutchinson MD Phone: tel: fax: [email or web address] [address] Phone: tel: Referral ID Status Reason Start Date Expiration Date V isits Requested Visits Authorized [id number] Authorized 02/17/2025 04/09/2025 21 21 Encounter Details Date Type Department Care Team (Latest Contact Info) Description 03/10/2025 2:00 PM EST Office Visit [facility] [address] [place] [address] Yancy Hutchinson MD [address] [facility], [address] [place], [place] [id number] Lindy Deutsch, PT [address] [place] [address] Fibromyalgia (Primary Dx); Muscle weakness (generalized) Social History Tobacco Use Types Packs/Day Years [...] as of this encounter Progress Notes * Lindy Deutsch, PT - 03/10/2025 2:00 PM EST Physical Therapy Treatment Note Patient Name: Linda Martinez Date of : 1980 This patient has attended 3 visits since the onset Physical Therapy. Referring MD: Yancy Hutchinson MD [address] [place] [address], [address] [place] [address] Fibromyalgia [M79.7] Precautions: None Has a history of experiencing more pain with exercises - build up gradually Subjective comments: Patient reports that she feels ok today. Said she her legs were a little sore after last session but nothing major. She had to cook for Thanksgiving at work and her back was very sore afterward. Mostly rested on Monday. Pain comments pre-treatment: Patient reports moderate pain in her shoulder blades, low back and hips. Objective Measures: Interventions: Procedural Interventions Parameters THERAPEUTIC EXERCISE -SciFit L2 - 7 min -Seated hip adduction with playground ball 5 sec holds 2cx 10 -Seated hip abduction with red band 2 x 10 -Seated flexion with p-ball forward and lateral x 5-8 -Side lying open books x 8 each direction - tried standing today, better in side lying THERAPEUTIC ACTIVITIES None NEUROMUSCULAR RE-ED None MANUAL THERAPY STMobs to B UT and periscapular area with patient seated in chair MODALITIES TENS used during exercises: with 2 x 3.5 inch electrodes Two placed on low back near PSIS Two placed on posterior shoulders near medial scapula border - inspected skin pre and post - some redness post but no blisters (there was a little scab on her L medial shoulder blade. But didn't put pads near it) 20 min patient selected intensity Pulse width 250 , frequency 90 (Hz) Home Exercise Program: Access Code: [email or web address] URL: [email or web address] Date: 03/03/2025 Prepared by: Lindy Deutsch Exercises - Seated Flexion Stretch with Bulgarian Ball - 1 x daily - 7 x weekly - 1 sets - 5-8 reps - Seated Thoracic Flexion and Rotation with Bulgarian Ball - 1 x daily - 7 x weekly - 1 sets - 5-8 reps - Seated Hip Adduction Squeeze with Ball - 1 x daily - 7 x weekly - 1-3 sets - 5-10 reps - Supine Lower Trunk Rotation - 1-2 x daily - 7 x weekly - 1 sets - 5-8 reps Assessment: Patient reported more comfort using TENS during session. Good effort with exercises. Plan: Start with low intensity exercises: try cardio on bike, sciFit, seated elliptical or TM Start with BW and load as tolerated Gentle ROM for lumbar - try vietnamese ball flexion Goals: GOAL (Short Term): 4-6 weeks 1. Patient is able to perform lumbar flexion and return to standing without the need for UE support. 2. Patient demonstrates improved hip abduction strength to >/= 4+/5 B. 3. B hamstring strength improved to >/= 4/5 OUTCOME (Brazer Crawler Torch): 8-10 1. Patient demonstrate improved lumbar extension ROM to 50% of normal. 2. B LE strength improved to 4+/5 or better. 3. RASHIDA improved to </= 45%. 4. Patient is independent with HEP and is able to perform exercises with good form and no cues. Patient Stated Goal: Wants to be able to keep working Lindy Deutsch, LALI [id number] documented in this encounter Plan of Treatment Upcoming Encounters Date Type Department Care Team (Late st Contact Info) Description 03/17/2025 2:00 PM EST Office Visit [address] [place] [address] Yancy Hutchinson MD [address] [place] [address] Lindy Deutsch, PT [address] [place] [address] 03/19/2025 1:15 PM EST Office Visit [address] [place] [address] Yancy Hutchinson MD [address] [place] [phone] Lindy Deutsch, PT [address] [place] [address] 03/25/2025 1:30 PM EST Office Visit [address] [place] [address] Yancy Hutchinson MD [address] [place] [address] Lindy Deutsch, PT 8 [place] [address] 03/27/2025 9:30 AM EST Office Visit [facility] Rheumatology [address] [place] [address] [place] [address] Yancy Hutchinson MD [address] [place] [address] documented as of this encounter Visit Diagnoses Diagnosis Fibromyalgia- Primary Unspecified myalgia and myositis Muscle weakness (generalized) documented in this encounter Care Teams Box Spring Maker Relationship Specialty Start Date End Date Minerva Ferrara NP [address] [place] [address] Dr PINK, [place] [address] [email or web address] PCP - General Nurse Practitioner 09/26/23 documented as of this encounter Additional Source Comments The information contained in this document represents components of the legal health record. It is not the complete legal health record.[facility]
--- NOTE | 2025-03-14 07:59 | A.OFFPC_ITS ---
Intake Visit Reasons: go over blood sugar Intake Note: Telehealth to speak about her sugars levels. Volleyball Player Required: No Allergies hydrocodone (From VICODIN) Allergy (Mild, Verified 03/14/25 15:10) HIVES oxycodone (From PERCOCET) Allergy (Mild, Verified 03/14/25 15:10) HIVES azithromycin (AZITHROMYCIN) Allergy (Unknown, Verified 03/14/25 15:10) NAUSEA & VOMITING erythromycin base (From ERYTHROCIN) Allergy (Unknown, Verified 03/14/25 15:10) NAUSEA & VOMITING metformin Adverse Reaction (Mild, Uncoded 03/14/25 14:51) Gastrointestinal Upset Medication List - Last Reconciled 03/14/25 by Minerva Zuleta, CHEMICAL PLANT OPERATOR- acetaminophen (Tylenol Extra Strength) 1,000 mg (2 x 500 mg) PO Q8H PRN albuterol sulfate 90 mcg/actuation 2 puffs inhalation Q4-6H PRN amitriptyline 50 mg PO BEDTIME atorvastatin 10 mg PO BEDTIME blood sugar diagnostic (FreeStyle Lite Strips) twice per day blood-glucose meter (FreeStyle [place] Lite kit) As directed bupropion HCl XL 300 mg PO DAILY cholecalciferol (vitamin D3) 50 mcg PO DAILY docusate sodium (Colace) 100 mg PO BID 30 days folic acid 1 mg PO DAILY gabapentin 100 - 400 mg (1 - 4 x 100 mg) PO BEDTIME 30 days hydrocortisone 2.5% 1 appl MI BID-QID PRN lidocaine 5% 1 patch topical DAILY PRN lisinopril 5 mg PO DAILY lubiprostone 24 mcg PO BID 30 days metformin ER (Glucophage XR) 2,000 mg (4 x 500 mg) PO QPM metoprolol tartrate 25 mg PO DAILY omeprazole 40 mg PO BID@0630,1630 ondansetron 4 mg PO Q8H PRN 5 days sumatriptan succinate (Imitrex) 100 mg PO DAILY PRN Tobacco use date assessed: 03/14/25 Dental Screening Dental Screen Date: 03/14/25 Did you have a dental visit in the last 12 months?: Yes Did you have a dental problem in the last 6 months where you did not have access to dental care?: No Was dental information given to patient?: Patient has dentist HPI HPI Comments History of Present Illness Details 44-year-old female with diabetes 2, asth ma, anxiety, MDD, constipation, bipolar 1 disorder, sleep apnea, renal stones, PTSD, lupus, hypertension, fibromyalgia, 3.6 cm hypodense lesion in the liver at the junction of the right and left hepatic lobes with thin rim calcification along the right lateral wall of the lesion, CAD, Small fat-containing anterior midline hernia , diverticulosis, fatty liver, splenomegaly, osteoarthritis multiple joints, vitamin d def, fhx colon ca (Mom age 59) Status post hysterectomy, hernia repair, 10/[address] Garcia Fhx: Mom colon CA dx 59 Social: , has children, 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 Cecum not visualised but remaining mucosa normal. (biopsy), Total of 1 polyp removed, External and internal hemorrhoids with stigmata of recent bleeding, diverticulosis Recommendations: - Follow path results. - Repeat colo at 46y.o as today's colo w as not adequate for CRC screening Mammo 11/2024 - surgical consult needed. Specialist Urology Breast Specialist Neuro Sleep Medicine Counselor/Nurse [facility] - 02/2024 [facility] Eye exam neg; + cataracts History of Present Illness The patient is a 44 year old female presenting for a telehealth visit for follow-up on diabetes. Type 2 Diabetes Mellitus: - The patient reports that her blood sug ars have become harder to control despite taking metformin 2000 mg daily at night. - She checks her blood sugar four to fiv e times a day. - Over the last month, her highest blood sugar reading was 213 and the lowest was 70, the latter of which was associated with dizziness and lightheadedness. - Her last hemoglobin A1c was 8.0 in Sep ber. - The patient experiences stomach pain a nd nausea with metformin, which makes it a struggle to eat. HOwever she has these sx even w/o the Metformin Chronic Constipation and GI issues: - The patient has a history of constipat ion that previously required surgery. - She is dissatisfied with her current g astroenterologist, Dr. Diaz, and desires a referral to a new GI doctor. - Following a change in medication from Linzess to Amitiza, she reports a return of bleeding and is now in constant pain. - Her amitriptyline was switched to nort riptyline to mitigate drying side effects. - An MRI defecography was ordered by Dr. Diaz in December, but the patient was unaware and the test has not been completed. - Chart was reviewed w/ her. It seems paco teague was unaware of the plan and is willing to cont care w/ Dr Diaz after review. Hot Flashes and Menopausal Symptoms: - The patient reports severe and uncomfo rtable hot flashes, describing a feeling of being on fire on the inside. - She initially associated them with her blood sugar levels but now believes it to be a coincidence. - Her OB-BUTTON GRADER plans to check her hormone levels to assess for perimenopause or menopause. Urinary and Other Symptoms: - The patient experiences a constant urg e to urinate, as if she has been holding it for hours. - Multiple tests for a urinary tract inf ection have been negative. This is likely related to her constipation - She also reports severe dry mouth with a feeling of her throat sticking together and extreme thirst, causing her to drink three times her usual amount of water. Review of Systems - Constitutional: Reports severe hot fla shes and occasional fevers associated with high blood sugar. - Endocrine: Reports difficulty controll ing blood sugars, polydipsia, and hot flashes. - Gastrointestinal: Reports nausea, stom ach pains with metformin, chronic constipation, and bleeding. - Genitourinary: Reports urinary urgency and has had multiple negative UTI tests. - Neurological: Reports dizziness and li ghtheadedness associated with low blood sugar. Physical Exam - Limited video exam Awake alert, walking around cooking speaking in full sentences Engaging and appropriate Results - Labs: Hemoglobin A1c was 8.0% on . - Imaging/Tests: An MRI defecography was ordered on December 11 but has not ye t been performed. Assessment and Plan 1. Type 2 Diabetes Mellitus - The patient's diabetes is suboptimally controlled, with an A1c of 8.0, and she experiences side effects from metformin. - Plan is to add an SGLT-2 inhibitor to improve glycemic control with a lower risk of hypoglycemia and GI side effects. - - Start Jardiance 10 mg once daily. - - Continue metformin 2000 mg daily. - - Patient counseled on the low risk of hypoglycemia and potential side effects like yeast infections. - - Repeat labs and schedule a follow-up appointment in one month. 2. Chronic Constipation - The patient is dissatisfied with her [facility] GI specialist and reports worsening pain and bleeding. - An MRI defecography ordered by her GI in December was not completed. - - A message will be sent to Dr. Diaz's office to follow up on the status of the MRI defecography. - - The patient has an upcoming appointm ent with Dr. Diaz on March 17. - - She is willing to cont care w/ Dr Carmine saba 3. Hot Flashes - The patient is experiencing severe hot flashes, which may be perimenopausal. - - Patient will see her OB-BUTTON GRADER for horm one level testing. - - Improving glycemic control may also alleviate some symptoms. - The patient will be followed up. 4. Xerostomia and Urinary Urgency - The patient reports significant dry mo uth, polydipsia, and urinary urgency. - These symptoms are likely multifactori al, stemming from hyperglycemia and medication side effects. - - The addition of Jardiance aims to im prove blood sugar control, which may reduce these symptoms. - - The patient's nortriptyline, which h as fewer anticholinergic effects than amitriptyline, will be continued. - - The pending MRI defecography may off er more insight into pelvic floor dysfunction related to urinary symptoms. Patient was given time to ask questions. All questions were answered to their satisfaction. Telehealth Attestation This was a telehealth visit conducted by video. The patient has been explained that this is an interactive (audio/video) telehealth encounter and what that consists of. The patient understands and wishes to proceed. Airec platform was used. Total time spent caring for the patient today was 30 minutes. This includes time spent before the visit reviewing the chart, time spent during the visit, and time spent after the visit on documentation, reviewing laboratory results, diagnostic imaging, medications, performing a medically necessary evaluation, counseling on diagnoses, care coordination, ordering appropriate tests, ordering appropriate medications, review of tests performed by other providers, reporting test results with the patient, communication with other healthcare providers. [facility] Medical History (Updated 03/14/25 @ 15:35 by Minerva Zuleta, CHEMICAL PLANT OPERATOR-) Anemia Anxiety Asthma Bipolar 1 disorder Breast pain, left delivery delivered Depression Diabetes Fibromyalgia HTN (hypertension) Hypertension Kidney infection Kidney stones Lupus Migraine Nausea with vomiting, unspecified Nephrolithiasis Periodic limb movements of sleep Postoperative pain Sciatica Sinusitis Sleep apnea Sleep apnea Surgical History H/O section H/O: hysterectomy History of esophagogastroduodenoscopy (EGD) Hx of colonoscopy S/P hemorrhoidectomy (10/28/24) Family History Maternal Grandmother HTN (hypertension) Diabetes Cancer Mother Ovarian cancer Other FH: mental illness Substance use Social History Household Members: Spouse Housing: Apartment Are you a primary rn coronary care unit to a significant other at home: No Do you presently have visiting nurse or other home services: No Alcohol intake: current Alcohol intake frequency: holidays/special occasions only Alcohol type: hard liquor Patient Tobacco Use Status: Former Tobacco user Tobacco use type: Smokeless Tobacco e-Cigarette/Vaping Use: Currently Using Substance Use Type: Marijuana Advance Directives Date on File: 02/02/24 service: No Current occupational status: employed 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 Rob Parry, Tana Rowley, Gen Mcdonald and colleagues, with an educational ezra from [employer]. Physical exam (Primary Care) Tobacco/Smoking Status: Tobacco use Status Tobacco use date assessed 03/14/25 03/14/25 14:51 Patient Tobacco Use Status Former Tobacco user 03/14/25 07:59 Tobacco use type Smokeless Tobacco 03/14/25 07:59 e-Cigarette/Vaping Use Currently Using 03/14/25 07:59 Thrive Assessment: Date of Thrive Assessment Date Thrive assessed 04/26/24 03/14/25 07:59 Telehealth Telehealth Telehealth Platform: [facility] Location of provider rendering services: practice address Location of patient: address on file Patient Identification confirmed using: Name, : Yes Telehealth method: video Patient verbally consented to treatment: Yes Patient verbally consented to billing insurance company: Yes Patient informed of any privacy concerns related to visit: Yes Minutes spent on Phone/Video with Pt.: 18 Coding Level of Care Code Tele Est Pt Level 3 (67459) Complex visit Add On G2211 Diagnoses DM type 2 causing complication E11.8 Microalbuminuria due to type 2 diabetes mellitus E11.29; R80.9 Chronic constipation K59.09 Hot flashes R23.2 Dry mouth R68.2 Assessment & Plan Assessment & Plan (1) DM type 2 causing complication: Comment: microalbuminuria and HTN Code(s): E11.8 - Type 2 diabetes mellitus with unspecified complications Category: Medical (2) Microalbuminuria due to type 2 diabetes mellitus: Code(s): E11.29 - Type 2 diabetes mellitus with other diabetic kidney complication; R80.9 - Proteinuria, unspecified Category: Medical (3) Chronic constipation: Code(s): K59.09 - Other constipation Category: Medical (4) Hot flashes: Code(s): R23.2 - Flushing Category: Medical (5) Dry mouth: Code(s): R68.2 - Dry mouth, unspecified Category: Medical Plan . Medications: New empagliflozin (Jardiance) 10 mg PO DAILY 90 tabs 0RF nortriptyline 50 mg PO BEDTIME 90 caps 2RF Discontinued amitriptyline Discontinued Reason: Change Referral Type 50 mg PO BEDTIME 90 tabs 2RF
--- OUTSIDE RECORDS SUMMARY | 2025-03-14 18:43 | XMS_ITS | Encounter Summary ---
Author Organization [facility] Address [address] [place] [address] Phone Care Team Providers Care Supervisor Tumbling And Rolling Name Role Phone Thu Gallardo DIRECTOR OF STAFF DEVELOPMENT Primary Care Provider + Minerva Ferrara DIRECTOR OF STAFF DEVELOPMENT Primary Care Provider Encounter Details Date Type Department Care Team (Late st Contact Info) Description 10/10/2020 Procedure Pass [facility] [address] [place] [address] Social History Tobacco Use Types Packs/Day Years [...] Risk Indicated 10/10/2020 10:00 PM EDT Dara Peerz, RACHELE * [place] Suicide Severity Rating Scale (Screener/Recent Self-Report) Question Answer Date of Assessment Author 1. Wish to be (Past 1 Month) No 10/10/2020 10:00 PM EDT Blake Holland, RACHELE 2. Non-Specific Active Suici rekha Thoughts (Past 1 Month) No 10/10/2020 10:00 PM Dara Calvillo, RN 6. Suicidal Behavior (Lifetime) No 10:00 PM Dara Calvillo, RACHELE documented as of this encounter Plan of Treatment Upcoming Encounters Date Type Department Care Team (Late st Contact Info) Description 03/17/2025 2:00 PM EST Office Visit [facility] [address] [place] [address] Yancy Hutchinson MD [address] [place] [phone] Lindy Deutsch, PT [address] [place] [address] [email or web address] 03/19/2025 1:15 PM EST Office Visit [facility] [address] [place] [address] Yancy Hutchinson MD [address] [place] [address] Lindy Deutsch, PT 8 [place] [address] [email or web address] 03/25/2025 1:30 PM EST Office Visit [facility] [address] [place] [address] Yancy Hutchinson MD [address] [place] [address] Lindy Deutsch, PT 8 [place] [address] [email or web address] 03/27/2025 9:30 AM EST Office Visit [facility] Rheumatology [address] [place] [address] Yancy Hutchinson MD [address] [place] [address], [place] [address] [email or web address] documented as of this encounter Visit Diagnoses Not on filedocumented in this encounter Care Teams Supervisor Tumbling And Rolling Relationship Specialty Start Date End Date Thu Gallardo NP [address] [place] [address] PCP - General Nurse Practitioner 10/10/20 09/25/23 Minerva Ferrara NP [address] [place] [address] [place] [address] [email or web address] PCP - General Nurse Practitioner 09/26/23 documented as of this encounter Additional Source Comments The information contained in this document represents components of the legal health record. It is not the complete legal health record.[facility]
--- OUTSIDE RECORDS SUMMARY | 2025-03-14 18:43 | XMS_ITS | Encounter Summary ---
Author Organization [facility] Address [address] [place] [address] Phone Care Team Providers Care Center Administrator Name Role Phone Minerva Ferrara DISABILITY INSURANCE HEARING OFFICER Primary Care Provider Encounter Details Date Type Department Care Team (Late st Contact Info) Description 08/27/2024 Telephone CD Pulmonary, Allergy and Critical Care Medicine [address] [place], [place] [id number] [email or web address] Social History Tobacco Use Types Packs/Day Years [...] Department Care Team (Late Contact Info) Description 03/17/2025 2:00 PM EST Office Visit Psychiatric [address] [place] [address] Yancy Hutchinson MD [address] [place] [address] Lindy Deutsch, PT [address] [place] [address] 03/19/2025 1:15 PM EST Office Visit Psychiatric [address] [place] [address] Yancy Hutchinson MD [address] [place] [address] Lindy Deutsch, PT [address] [place] [address] 03/25/2025 1:30 PM EST Office Visit Psychiatric [address] [place] [address] Yancy Hutchinson MD [address] [place] [address] Lindy Deutsch, PT [address] [place] [address] 03/27/2025 9:30 AM EST Office Visit [facility] Rheumatology [address] [place] [address] Yancy Hutchinson MD [address] [place] [address] documented as of this encounter Visit Diagnoses Not on filedocumented in this encounter Care Teams Center Administrator Relationship Specialty Start Date End Date Minerva Ferrara NP [address] [place] [address] [place] [address] [email or web address] PCP - General Nurse Practitioner 09/26/23 documented as of this encounter Additional Source Comments The information contained in this document represents components of the legal health record. It is not the complete legal health record.[facility]
--- OUTSIDE RECORDS SUMMARY | 2025-03-14 18:43 | XMS_ITS | Encounter Summary ---
Author Organization [facility] Address [address] [place] [address] Phone Care Team Providers Care Wash Rack Operator Name Role Phone Thu Gallardo BATTERY ENGINEER Primary Care Provider + Minerva Ferrara BATTERY ENGINEER Primary Care Provider Encounter Details Date Type Department Care Team (Late st Contact Info) Description 10/10/2020 Procedure Pass [facility] [address] [place] [address] Social History Tobacco Use Types Packs/Day Years [...] 10:00 PM EDT Dara Perez RN * [place] Suicide Severity Rating Scale (Screener/Recent Self-Report) Question Answer Date of Assessment Author 1. Wish to be (Past 1 Month) No 10/10/2020 10:00 PM EDT Blake Holland, RACHELE 2. Non-Specific Active Suici rekha Thoughts (Past 1 Month) No 10/10/2020 10:00 PM EDT Dara Holland, RN 6. Suicidal Behavior (Lifetime) No 10:00 PM EDT Dara Holland, RACHELE documented as of this encounter Plan of Treatment Upcoming Encounters Date Type Department Care Team (Late st Contact Info) Description 03/17/2025 2:00 PM EST Office Visit [address] [address] Yancy Hutchinson MD [address] [place] [address] Lindy Deutsch, PT 8 [place] [address] [email or web address] 03/19/2025 1:15 PM EST Office Visit [address] [place] [address] Yancy Hutchinson MD [address] [place] [address] [email or web address] Lindy Deutsch, PT 8 [place] [address] [email or web address] 03/25/2025 1:30 PM EST Office Visit [address] [place] [address] Yancy Hutchinson MD [address] [place] [address] Lindy Deutsch, PT 8 [place] [address] [email or web address] 03/27/2025 9:30 AM EST Office Visit [facility] Rheumatology [address] [place] [address] [place] [address] Yancy Hutchinson MD [address] [place] [address] [email or web address] documented as of this encounter Visit Diagnoses Not on filedocumented in this encounter Care Teams Wash Rack Operator Relationship Specialty Start Date End Date Thu Gallardo NP [address] [place] [address] PCP - General Nurse Practitioner 10/10/20 09/25/23 Minerva Ferrara NP [address] [place] [address] [place] [address] [email or web address] PCP - General Nurse Practitioner 09/26/23 documented as of this encounter Additional Source Comments The information contained in this document represents components of the legal health record. It is not the complete legal health record.[facility]
--- OUTSIDE RECORDS SUMMARY | 2025-03-14 18:43 | XMS_ITS | Clinical Summary ---
Demographics Address [address] [place] [address] Home Phone Preferred Language en Marital Status Taoist Affiliation Unknown Race White Ethnic Group Not or Lati no Author Organization [facility] Address [address] [place] [address] Care Team Providers Care Graphic Specialist Name Role Phone Unavailable Primary Care Provider [...] Documents on File Type Date Recorded Patient Tamale Machine Feeder Expl anation Health Care Decision (hx) 07/09/2016 AD JOHNNIE DIRECTIVE
--- OUTSIDE RECORDS SUMMARY | 2025-03-14 18:43 | XMS_ITS | Encounter Summary ---
Author Organization [facility] Address [address] [place] [address] [place] [address] Phone Care Team Providers Care Wellness Spa Manager Name Role Phone Thu Gallardo SENIOR HARDWARE ENGINEER Primary Care Provider + Minerva Ferrara SENIOR HARDWARE ENGINEER Primary Care Provider Encounter Details Date Type Department Care Team (Late st Contact Info) Description 10/10/2020 Procedure Pass [facility] [address] [place] [address] Social History Tobacco Use Types Packs/Day Years [...] 10:00 PM EDT Dara Perez, RACHELE * [place] Suicide Severity Rating Scale (Screener/Recent Self-Report) Question Answer Date of Assessment Author 1. Wish to be (Past 1 Month) No 10/10/2020 10:00 PM EDT Blake Holland, RACHELE 2. Non-Specific Active Suici rekha Thoughts (Past 1 Month) No 10/10/2020 10:00 PM EMILYT Dara Holland, RACHELE 6. Suicidal Behavior (Lifetime) No 10:00 PM Dara Calvillo, RACEHLE documented as of this encounter Plan of Treatment Upcoming Encounters Date Type Department Care Team (Late st Contact Info) Description 03/17/2025 2:00 PM EST Office Visit [facility] [address] [place] [address] Yancy Hutchinson MD [address] [place] [phone] Linyd Deutsch, PT 8 [place] [address] 03/19/2025 1:15 PM EST Office Visit [address] [place] [address] Yancy Hutchinson MD [address] [place] [phone] Lindy Deutsch, PT [address] [place] [address] 03/25/2025 1:30 PM EST Office Visit [facility] [address] [place] [address] Yancy Hutchinson MD [address] [place] [phone] Lindy Deutsch, PT [address] [place] [address] 03/27/2025 9:30 AM EST Office Visit [facility] Rheumatology [address] [place] [address] Yancy Hutchinson MD [address] [place], [place] [address], [place] [address] [email or web address] documented as of this encounter Visit Diagnoses Not on filedocumented in this encounter Care Teams Wellness Spa Manager Relationship Specialty Start Date End Date Thu Gallardo NP [address] [place] [address] PCP - General Nurse Practitioner 10/10/20 09/25/23 Minerva Ferrara NP [address] [place] [address] [place] [address] [email or web address] PCP - General Nurse Practitioner 09/26/23 documented as of this encounter Additional Source Comments The information contained in this document represents components of the legal health record. It is not the complete legal health record.[facility]
--- OUTSIDE RECORDS SUMMARY | 2025-03-14 18:43 | XMS_ITS | Encounter Summary ---
Author Organization [facility] Address [address] [place] [address] [place] [address] Phone Care Team Providers Care Lead Sustainability Specialist Name Role Phone Thu Gallardo MERCHANDISE COORDINATOR Primary Care Provider + Minerva Ferrara MERCHANDISE COORDINATOR Primary Care Provider Encounter Details Date Type Department Care Team (Late st Contact Info) Description 10/10/2020 Procedure Pass [facility], Ct Scan - [facility] [address] [place] [address] Social History Tobacco Use Types Packs/Day Years [...] 10:00 PM EDT Dara Perez, RACHELE * Eagle Suicide Severity Rating Scale (Screener/Recent Self-Report) Question [...] Description 03/17/2025 2:00 PM EST Office Visit [facility] [address] [place] [address] Yancy Hutchinson MD [address] [place] [phone] Lindy Deutsch, PT [address] [place] [address] [email or web address] 03/19/2025 1:15 PM EST Office Visit [address] [place] [address] Yancy Hutchinson MD [address] [place] [phone] Lindy Deutsch, PT 8 [place] [address] 03/25/2025 1:30 PM EST Office Visit [facility] [address] [place] [address] Yancy Hutchinson MD [address] [place] [address] Lindy Deutsch, PT 8 [place] [address] 03/27/2025 9:30 AM EST Office Visit [facility] Rheumatology [address] [place] [address] Yancy Hutchinson MD [address] [place], [place] [address], [place] [address] [email or web address] documented as of this encounter Visit Diagnoses Not on filedocumented in this encounter Care Teams Lead Sustainability Specialist Relationship Specialty Start Date End Date Thu Gallardo NP [address] [place] [address] PCP - General Nurse Practitioner 10/10/20 09/25/23 Minerva Ferrara NP [address] [place] [address] [place] [address] [email or web address] PCP - General Nurse Practitioner 09/26/23 documented as of this encounter Additional Source Comments The information contained in this document represents components of the legal health record. It is not the complete legal health record.[facility]
--- OUTSIDE RECORDS SUMMARY | 2025-03-14 18:43 | XMS_ITS | Clinical Summary ---
Demographics Address [address] [place] [address] [address] [place] [address] Home Phone Mobile Phone Email Address Preferred Language Kyrgyz Marital Status /Civil Union Taoism Affiliation Unknown Race White Ethnic Group Not or Lati no Author Organization [facility] Address [address] [place] [address] Phone Care Team Providers Care Assistant Elementary Teacher Name Role Phone Minerva Ferrara SENIOR APPLICATIONS ARCHITECT Primary Care Provider Allergies Active Allergy Reactions [...] numbness MRI and echocardiogram without acute findings, [facility] neurologist feels this may be migraine and patient should follow-up with neurologist within 6 weeks Encounters Date Type Department Care Team Description 03/10/2025 2:00 PM EST Office Visit [address] [place] [address] Yancy Hutchinson MD Kenny, Erin, PT Fibromyalgia (Primary Dx); Muscle weakness (generalized) 03/03/2025 2:00 PM EST Office Visit [address] [place] [address] Yancy Hutchinson MD Kenny, Erin, PT Fibromyalgia (Primary Dx); Muscle weakness (generalized) 02/24/2025 2:00 PM EST Office Visit [facility] [address] [place] [address] Yancy Hutchinson MD Kenny, Erin, PT Fibromyalgia (Primary Dx); Muscle weakness (generalized) 01/01/2025 Orders Only [facility] Rheumatology [address] [place] [address] ProviderWilma MD 12/28/2024 1:26 PM EDT - 12/28/2024 11:59 PM EDT Hospital Encounter [facility] [address] [place] [address] Yancy Hutchinson MD Discharge Disposition: Home or Self Care 12/24/2024 11:00 AM EDT Office Visit [facility] Rheumatology [address] [place] [address] Yancy Hutchinson MD Undifferentiated connective tissue disease (Primary Dx); Fibromyalgia; Bilateral carpal tunnel syndrome; Lymphadenopathy, axillary 12/24/2024 Telephone [facility] Rheumatology - Virtual Department [address] [place] [address] Yancy Hutchinson MD Appointment from Last 3 [...] Description 03/17/2025 2:00 PM EST Office Visit [address] [place] [address] Yancy Hutchinson MD [address] [place] [address] Lindy Deutsch, PT 8 [place] [address] 03/19/2025 1:15 PM EST Office Visit [facility] [address] [place] [address] Yancy Hutchinson MD [address] [place] [address] Lindy Deutsch, PT 8 [place] [address] 03/25/2025 1:30 PM EST Office Visit [facility] [address] [place] [address] Yancy Hutchinson MD 22 [facility], [address] [place] [address] [email or web address] Lindy Deutsch, PT 8 [place] [address] 03/27/2025 9:30 AM EST Office Visit [facility] Rheumatology [address] [place] [address] Yancy Hutchinson MD 22 [facility], [address] [place] [address] [email or web address] Health Maintenance Due Date Last Done Comments [...] 1:27 PM EDT Undifferentiated connective tissue disease [id number] ANTIBODIES Routine 12/28/2024 1:27 PM EDT [...] 1:27 PM EDT Undifferentiated connective tissue disease MANAGER ANIMAL ANTIBODY Routine 12/28/2024 1:27 PM EDT Undifferentiated [...] Recently Relevant to Health Maintenance Results * MANAGER ANIMAL ANTIBODY (12/28/2024 1:27 PM EDT) MANAGER ANIMAL AB, IGG 0.6 <1.0 (Negative) [facility] [address] Blood 12/28/2024 1:27 PM EDT 12/28/2024 1:43 PM EDT Yancy Hutchinson MD LAB BLOOD ORDERABLES Cindy l Result [facility] [address] [place] [address] * SS-A/SS-B antibodies (12/28/2024 1:27 PM EDT) ANTI-RO ANTIBODY 2.37 0.00 - 19.99 OD UNIT [facility] RO INTERPRETATION Negative Negative [facility] ANTI-LA ANTIBODY 5.17 0.00 - 19.99 OD UNIT [facility] LA INTERPRETATION Negative Negative [facility] Blood 12/28/2024 1:27 PM EDT 12/28/2024 1:42 PM EDT Yancy Hutchinson MD LAB BLOOD ORDERABLES Cindy l Result [facility] [address] [place] [address] * (ABNORMAL) Comprehensive metabolic panel (12/28/2024 1:27 PM EDT) SODIUM 136 133 - 146 mmol/L [facility] POTASSIUM 3.9 3.3 - 5.1 mmol/L [facility] CHLORIDE 102 96 - 108 mmol/L [facility] CO2 22 21 - 35 mmol/L [facility] BUN 15 6 - 19 mg/dL [facility] CREATININE 0.60 0.5 - 1.5 mg/dL [facility] GLUCOSE 207(H) 70 - 99 mg/dL [facility] ALBUMIN 4.0 3.9 - 4.8 g/dL [facility] TOTAL PROTEIN 7.1 6.5 - 8.0 g/dL [facility] CALCIUM 8.9 8.4 - 10.3 mg/dL [facility] ALKALINE PHOSPHATASE 145(H) 39 - 117 U/L [facility] TOTAL BILIRUBIN <0.2 0.0 - 1.2 mg/dL [facility] AST 28 0 - 37 U/L [facility] ALT 31 0 - 40 U/L [facility] GLOBULIN 3.1 1 - 4.8 g/dL [facility] EGFR 114 >59 mL/min/1.7 3m2 [facility] Comment:Estimated glomerular filtration rate calculated using the CKD-EPI refit equation. ANION GAP 16 10 - 20 mmol/L [facility] Blood 12/28/2024 1:27 PM EDT 12/28/2024 1:41 PM EDT Yancy Hutchinson MD LAB BLOOD BKR ORDERABLES Final Result [facility] [address] [place] [address] * U1RNP and Kruger antibodies (12/28/2024 1:27 PM EDT) ANTI-SM ANTIBODY 7.24 0.00 - 19.99 OD UNIT [facility] SM INTERPRETATION Negative Negative [facility] ANTI-MANAGER ANIMAL ANTIBODY 5.92 0.00 - 19.99 OD UNIT [facility] MANAGER ANIMAL INTERPRETATION Negative Negative [facility] Blood 12/28/2024 1:27 PM EDT 12/28/2024 1:42 PM EDT Yancy Hutchinson MD LAB BLOOD ORDERABLES Cindy l Result Performing Organization Address City/[facility]/ZIP Co de Phone Number [address] [address] * CCP IgG antibodies (12/28/2024 1:27 PM EDT) Pathologist [facility] ANTI-CCP IGG <8 0 - 16 U/mL [facility] Blood 12/28/2024 1:27 PM EDT 12/28/2024 1:42 PM EDT Yancy Hutchinson MD LAB BLOOD BKR ORDERABLES Final Result Performing Organization Address [facility]/ZIP Co de Phone Number [address] [address] * Scl-70 antibody (12/28/2024 1:27 PM EDT) Pathologist [facility] SCL 70 AB, IGG <0.2 <1.0 (Negative) [facility] Blood 12/28/2024 1:27 PM EDT 12/28/2024 1:43 PM EDT Yancy Hutchinson MD LAB BLOOD ORDERABLES Cindy l Result Performing Organization Address City/[facility]/ZIP Co de Phone Number [facility] [address] [place] [address] * Double stranded DNA antibodies (12/28/2024 1:27 PM EDT) Pathologist [facility] ANTI DSDNA ANTIBODY Negative at 1:10 [facility] Comment: Dequan Avalos M.D., Director Clinical Immunology Laboratory [id number] Normal: Negative at 1:10 To interpret a negative test for anti-chalky[place] or double stranded DNA antibodies in a [...] BKR ORDERABLES Final Result Performing Organization Address City/[facility]/ZIP Co de Phone Number [facility] [address] [place] [address] * Trlo-1-ktejecehzstm I antibodies (12/28/2024 1:27 PM EDT) [facility] [id number] IGG <9.4 <15.0 (Negative) U/mL [facility] MED/PATH [address] Beta 2 GP1 Ab IgM <9.4 <15.0 (Negative) U [facility] MED/PATH [address] Blood 12/28/2024 1:27 PM EDT 12/28/2024 1:43 PM EDT Yancy Hutchinson MD LAB BLOOD BKR ORDERABLES Final Result Performing Organization Address [facility] Co de Phone Number [facility] LAB MED/PATH [address] [place] [address] * Lupus anticoagulant panel (12/28/2024 1:27 PM EDT) [facility] Lupus Anticoagulant Tech Interpretation SEE NOTE [facility] DPT OF LAB MED AND PAT+ Comment: (NOTE) No evidence of a lupus anticoagulant based on results of Prothrombin Time (PT), Activated Partial Thromboplastin Time (APTT), and Dilute Russells Viper Venom Time (DRVVT). NOTE: Interpretation not reviewed by physician. Prothrombin Time (PT) 11.5 9.4 - 12.5 sec [facility] DPT OF LAB MED AND PAT+ INR 1.1 0.9 - 1.1 [facility]+ Comment: (NOTE) ADDITIONAL INFORMATION Standard intensity warfarin therapeutic range: 2.0 to 3.0 High intensity warfarin therapeutic range: 2.5 to 3.5 Activated Partial Thromboplastin Time 27 25 - 37 sec [facility] DPT OF LAB MED AND PAT+ DRVVT Screen Ratio 0.98 <1.20 ratio [facility] DPT OF LAB MED AND PAT+ Blood 12/28/2024 1:27 PM EDT 12/28/2024 1:43 PM EDT Yancy Hutchinson MD LAB BLOOD BKR ORDERABLES Final Result Performing Organization Address City/[facility]/ZIP Co de Phone Number [facility] DPT OF LAB MED AND PAT+ [address] [place] [address] * Anti-cardiolipin antibodies (12/28/2024 1:27 PM EDT) PHOSPHOLIPID IGM,S <9.4 <15.0 (Negative) MPL [facility] DR PHOSPHOLIPID IGG, S <9.4 <15.0 (Negative) GPL [facility] Blood 12/28/2024 1:27 PM EDT 12/28/2024 1:43 PM EDT Yancy Hutchinson MD LAB BLOOD BKR ORDERABLES Final Result Performing Organization Address City/[facility]/ZIP Co de Phone Number [facility] [place] [address] * (ABNORMAL) Sedimentation rate (ESR) (12/28/2024 1:27 PM EDT) ESR 33(H) 0 - 20 mm/h [facility] Blood 12/28/2024 1:27 PM EDT 12/28/2024 1:41 PM EDT Yancy Hutchinson MD LAB BLOOD BKR ORDERABLES Final Result [facility] [address] [place] [address] * CBC and differential (12/28/2024 1:27 PM EDT) WBC 8.56 4.00 - 11.00 K/uL [facility] RBC 4.76 4.00 - 5.20 M/uL [facility] HGB 14.1 12.0 - 16.0 g/dL [facility] HCT 41.6 36.0 - 46.0 % [facility] PLT 287 150 - 450 K/uL [facility] MCV 87.4 80.0 - 100.0 fL [facility] MCH 29.6 27.0 - 31.0 pg [facility] MCHC 33.9 32.0 - 36.0 g/dL [facility] RDW 13.1 11.5 - 14.5 % [facility] MPV 9.6 8.4 - 12.0 fL [facility] NRBC 0.00 0.00 /100 WBCs [facility] ABSOLUTE NRBC 0.00 0.00 K/uL [facility] DIFF METHOD Auto [facility] NEUTS 68.2 48.0 - 76.0 % [facility] LYMPHS 22.8 18.0 - 41.0 % [facility] MONOS 6.2 4.0 - 11.0 % [facility] EOS 2.0 0.0 - 5.0 % [facility] BASOS 0.4 0.0 - 1.5 % [facility] Granulocytes, immature (%) 0.4 0.0 - 0.9 % [facility] ABSOLUTE NEUTS 5.85 1.92 - 7.60 K/uL [facility] ABSOLUTE LYMPHS 1.95 0.72 - 4.10 K/uL [facility] ABSOLUTE MONOS 0.53 0.16 - 1.10 K/uL [facility] ABSOLUTE EOS 0.17 0.00 - 0.50 K/uL [facility] ABSOLUTE BASOS 0.03 0.00 - 0.15 K/uL [facility] Granulocytes, immature 0.03 0.00 - 0.09 K/uL [facility] Blood 12/28/2024 1:27 PM EDT 12/28/2024 1:41 PM EDT us Yancy Hutchinson MD LAB BLOOD BKR ORDERABLES Final Result [address] [address] * Rheumatoid factor (12/28/2024 1:27 PM EDT) RHEUMATOID FACTOR <10.0 0.0 - 14.0 IU/ml [facility] Blood 12/28/2024 1:27 PM EDT 12/28/2024 1:41 PM EDT Yancy Hutchinson MD LAB BLOOD BKR ORDERABLES Final Result Performing Organization Address [facility] Co de Phone Number [address] [address] * Complement C3 (12/28/2024 1:27 PM EDT) C3 144 81 - 157 mg/dl [facility] Blood 12/28/2024 1:27 PM EDT 12/28/2024 1:42 PM EDT Yancy Hutchinson MD LAB BLOOD BKR ORDERABLES Final Result Performing Organization Address City/[facility]/ZIP Co de Phone Number [address] [address] * Complement C4 (12/28/2024 1:27 PM EDT) C4 29 12 - 39 mg/dL [facility] Blood 12/28/2024 1:27 PM EDT 12/28/2024 1:42 PM EDT us Yancy Hutchinson MD LAB BLOOD BKR ORDERABLES Final Result Performing Organization Address City/[facility]/ZIP Co de Phone Number [address] [address] * (ABNORMAL) C-Reactive Protein (12/28/2024 1:27 PM EDT) C REACTIVE PROTEIN 12.4(H) 0.0 - 4.0 mg/L [facility] Blood 12/28/2024 1:27 PM EDT 12/28/2024 1:41 PM EDT Yancy Hutchinson MD LAB BLOOD BKR ORDERABLES Final Result [address] [address] * Antinuclear antibody (GERARDO) (12/28/2024 1:27 PM EDT) GERARDO SCREEN ON HEP 2 Negative Negative [facility] Blood 12/28/2024 1:27 PM EDT 12/28/2024 1:41 PM EDT Yancy Hutchinson MD LAB BLOOD BKR ORDERABLES Final Result Performing Organization Address City/[facility]/ZIP Co de Phone Number [address] [address] * Outside Lab (12/18/2024 2:41 PM EDT) Wilma Helton MD LAB BLOOD BKR ORDERABLES Final Result * (ABNORMAL) Hemoglobin A1c (10/11/2020 5:42 AM EDT) HEMOGLOBIN A1C 7.3(H) 4.3 - 5.8 % [facility] Blood 10/11/2020 5:42 AM EDT 10/11/2020 6:20 AM EDT Aileen Wright NP LAB BLOOD BKR ORDERABLE S Final Result Performing Organization Address City/[facility]/ZIP Co de Phone Number [address] [address] from Last 3 Months or Most Recently Relevant to Health Maintenance Insurance [facility] [place] [address] [place] [address] ACO [facility] Advance Directives For more information, please contact: [phone] (9AM - 5PM Martina/[facility], Monday-Monday) Documents on File Type Date Recorded 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 It is not the complete legal health record.[facility]
== END 2025-03-14 15:28 | disposition home or self-care (01) ==
LOC: HO.HMCFM 14:38
PROVIDERS: PCP Nurse Practitioner Family; Visit Provider Nurse Practitioner Family
DX: E11.8 Type 2 diabetes mellitus with unspecified complications (principal); E11.29 Type 2 diabetes mellitus with other diabetic kidney complication; R80.9 Proteinuria, unspecified; K59.09 Other constipation; R23.2 Flushing; R68.2 Dry mouth, unspecified

== ENCOUNTER 2025-03-17 11:18 | Outpatient (AMB) | payer OTHER, SELFPAY ==
[2025-03-17 11:26] VITALS: BP 130/86; PULSE 75; BMI 35.9
--- NOTE | 2025-03-17 11:26 | A.OFFVIS_ITS ---
Vital Signs 03/17/25 11:26 Height 5 ft 3 in Weight 202 lb 13.204 oz BMI 35.9 BP 130/86 Blood Pressure Location Lt brachial Position Sitting Pulse 75 Intake Visit Reasons: f/u hemorroids Intake Note: Linda presents in the office as a follow up for hemorrhoids. CC: She states that nothing has changed - she states surgery was pointless because since having them removed she has no changes and still issues with bowel movements, bladder and now she feels like she is worse. Lens Cutter Required: No Allergies hydrocodone (From VICODIN) Allergy (Mild, Verified 03/17/25 11:32) HIVES oxycodone (From PERCOCET) Allergy (Mild, Verified 03/17/25 11:32) HIVES azithromycin (AZITHROMYCIN) Allergy (Unknown, Verified 03/17/25 11:32) NAUSEA & VOMITING erythromycin base (From ERYTHROCIN) Allergy (Unknown, Verified 03/17/25 11:32) NAUSEA & VOMITING metformin Adverse Reaction (Mild, Uncoded 03/17/25 11:32) Gastrointestinal Upset HPI Comments Details: 43 y.o F with PMH of who is here for rectal bleeding and abd pain. Has been having intermittent rectal bleeding for almost 5 years. Typically with a BM. On wiping. Stool itself is brown. BMs fluctuate from constipation to diarrhea. Typically starts off as very hard BM and then gets softer as the day. Strains significantly. Can feel hemorrhoids on wiping. Also reports significant abd pain phyllis in left side. Unrelated to BMs per her report. No fam hx of colon ca in FDR. Vapes. Takes edible THC. Rare alcohol. No blood thinners. Takes NSAIDs frequently for migraines. 02/15/24: Colonoscopy 1. Cecum not visualised but remaining mucosa normal. (biopsy) 2. Total of 1 polyp removed 3. External and internal hemorrhoids with stigmata of recent bleeding Recommendations: - Follow path results. - Repeat colo at 46y.o as today's colo was not adequate for CRC screening - Bleeding likely from bleeding hemorrhoids. Anusol supp Rxed - Avoid constipation and straining A. Colon, right, biopsy: Colonic mucosa within normal limits. B. Colon, ascending, polypectomy: Colonic mucosa with mild surface hyperplastic changes; multiple additional levels examined. C. Colon, left, biopsy: Colonic mucosa within normal limits 04/29/24: Here for follow up. Reports has persistent rectal bleeding but also didnt take anusol suppositories yet. Cont to have loose stools. Results of colo reviewed. No colitis/proctitis. Bleeding likely from hemorrhoids. Labs reviewed, no anemia. Of note- pt has T2DM. Not on meds - metformin DCed due to diarrhea. Has appt with PCP later this week to discuss pharmacological management. Also has fatty liver. Pt had liver protocol MRI last week to follow up on liver lesion incidentally noted on CT abd/pel. MRI abd with and without contrast 04/26/24: 1. Hepatic steatosis. 2. Findings consistent with a 3.7 cm proteinaceous cyst in segment IV of the liver, which could be postinfectious or posttraumatic in nature. This is unchanged in size dating back to 08/16/2021. 3. 9 mm cystic structure in the body of the pancreas which may represent an IPMN. This is unchanged dating back to 08/16/2021. 06/10/24: Here as televisit. Had forgotten to discuss GLP 1 with PCP. However sugars are looking good and A1c has not worsened. LFTs are better too. Constipation and hemorrhoidal bleeding is unfortunately unchanged. Has days where she has passage of only pellets with significant straining. Has 1-2 BMs per week. Daily meds: metamucil miralax dulcolax Laboratory Tests 05/06/24 06/04/24 15:28 10:28 Hgb 15.2 13.4 Hct 43.5 39.3 Creatinine 0.63 Fasting Glucose 160 H Hemoglobin A1c % 7.0 H Iron 56 % Saturation 22 Ferritin 141 Total Bilirubin 0.2 AST 38 H 27 ALT 42 H 36 H Alkaline Phosphatase 122 H Total Protein 6.8 Albumin 3.5 LDL Cholesterol, Calc 91 HDL Cholesterol 35 L Mitochondrial AB Titer Pending 25-OH Vitamin D Total 13.7 L IgG 999 GERARDO Screen NEGATIVE Anti-Mitochondrial Ab NEGATIVE Anti-Smooth Muscle Ab <20 Tiss Transglutamin IgA <1.0 Olivia/Kid Microsom Ab Int <=20.0 Hep Bs Antibody NONREACTIVE Hep B Core Total Ab Nonreactive Hepatitis C Ab (EIA) Nonreactive HIV 1&2 Ab/P24 Ag 4thGn Nonreactive 12/11/24: Here for 6m follow up. Had hemorrhoidectomy 10/2024. Reports recovery for painful. Phyllis as still remains constipated and continues to have to strain to pass BMs. This is in spite of taking: dulcolax bid miralax 3-4 times a day linzess 290 colace daily No further bleeding however. LFTs reviewed. Unchanged from before. Laboratory Tests 10/28/24 18:32 AST 31 ALT 36 H 03/17/25: Here for follow up. Has 3 main complaints: - constipation unchanged. Still has to strain considerably. Feels hemorrhoids may have returned due to straining. MR defecography was ordered at last visit. Pt never heard from [facility] radiology to schedule this. - difficulty initiating urinary stream. Also has frequent incomplete evacuation sensation. Sees urology but has not followed up with them in almost a year. - Reports frequent nausea and gagging sensation with certain foods phyllis in morning. Also reports increased abd cramping and bloating phyllis with carbs. Celiac serology and small bx neg from prev EGD 2023. Reports smokes marijuana at night but that sx started before she started smoking. - of note also due for panc cyst surveillance. [facility] Medical History Postoperative pain Nausea with vomiting, unspecified Nephrolithiasis Periodic limb movements of sleep Anemia Asthma Sleep apnea Migraine Sinusitis Breast pain, left Hypertension Sleep apnea Bipolar 1 disorder Depression Anxiety delivery delivered Diabetes Sciatica Kidney infection Kidney stones HTN (hypertension) Fibromyalgia Lupus Surgical History S/P hemorrhoidectomy (10/28/24) Hx of colonoscopy History of esophagogastroduodenoscopy (EGD) H/O section H/O: hysterectomy Family History Maternal Grandmother HTN (hypertension) Diabetes Cancer Mother Ovarian cancer Other FH: mental illness Substance use Social History Household Members: Spouse Housing: Apartment Are you a primary rn care manager to a significant other at home: No Do you presently have visiting nurse or other home services: No Alcohol intake: current Alcohol intake frequency: holidays/special occasions only Alcohol type: hard liquor Patient Tobacco Use Status: Former Tobacco user Tobacco use type: Smokeless Tobacco e-Cigarette/Vaping Use: Currently Using Substance Use Type: Marijuana Advance Directives Date on File: 02/02/24 service: No Current occupational status: employed 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 Current occupational exposures/hazards: No Cognitive needs: No Hearing needs: No Vision needs: Yes (glasses) Review of Systems Const All systems reviewed & are unremarkable except as noted in HPI and below Physical Exam Exam Exam: No apparent distress Nonicteric Abdomen soft, nondistended Alert and oriented x3, normal gait Vital Signs: Last Vital Signs Pulse 75 03/17/25 11:26 BP 130/86 03/17/25 11:26 BMI result Body Mass Index 35.9 Assessment & Plan Assessment & Plan (1) Chronic constipation: Code(s): K59.09 - Other constipation Category: Medical (2) Abdominal pain: Code(s): R10.9 - Unspecified abdominal pain Category: Medical Qualifiers: Abdominal location: right upper quadrant Qualified Code(s): R10.11 - Right upper quadrant pain (3) Nausea with vomiting, unspecified: Code(s): R11.2 - Nausea with vomiting, unspecified Category: Medical Qualifiers: Vomiting type: unspecified Qualified Code(s): R11.2 - Nausea with vomiting, unspecified (4) Dysphagia: Comment: subjective Code(s): R13.10 - Dysphagia, unspecified Category: Medical Qualifiers: Dysphagia type: unspecified Qualified Code(s): R13.10 - Dysphagia, unspecified (5) Pancreatic cyst: Code(s): K86.2 - Cyst of pancreas Category: Medical (6) Dysuria: Comment: Urinalysis is reviewed. Patient will be discharged home with Keflex. Urine culture is pending at this time. Code(s): R30.0 - Dysuria Category: Medical (7) Nephrolithiasis: Code(s): N20.0 - Calculus of kidney Category: Medical (8) Diabetes: Code(s): E11.9 - Type 2 diabetes mellitus without complications Category: Medical Plan 1. Constipation Has persistent severe constipation. Advised to resume fiber and cont amitiza. Strongly suspect rectal outlet dysfunction. MRI defecography still pending. Called [facility] rad and will resend referral. No colitis, large mass noted during colonoscopy. Pt reminded that colo prep was NOT adequate for polyp detection and would recommend repeat colo at 46 y.o for screening purpose. Plan: - Cont amitiza 24 mcg BID - Cont miralax once daily - Resume fiber - MR defecography order resent to [facility] - Reviewed may also need ARMS contingent on response to amitiza and results of defecography 2. Dysphagia 3. Nausea 4. Abd cramping and bloating Chronic issue. EGD without any obv eso stricture but no esophageal bx available. In terms of daily nausea and appetite changes, pt was also advised against smoking marijuana. Can take CBD supplements if absolutely has to but to avoid THC. No evidence of celiac based on prev w/up. Plan: - Cont PPI - Barium swallow ordered - Avoid or minimize marijuana - Will review need for repeat EGD based on barium swallow results 5. Panc cyst Has small panc cyst which has been stable and next MRI due 2026 but given sx will get MRI early. Plan: - MRCP ordered 6. Urinary dysfunction Reviewed that likely unrelated to hemorrhoid surgery. Should review this further with UroGYN or Urology. Has hx of small kidney stones. Plan: - UA - US bladder and kidneys ordered - Pt also advised to work on diet for DM control and to avoid glucosuria related sx Follow up 3 months Orders: Orders FL barium swallow Today R11.2 - Nausea with vomiting, unspecified, R13.10 - Dysphagia, unspecified UA and rflx microscopic Today R30.0 - Dysuria US bladder Today R30.0 - Dysuria MR abdomen wo con Today K76.89 - Other specified diseases of liver, K86.2 - Cyst of pancreas Patient Instructions: 1. Cont amitiza 2. Urinalysis and ultrasound has been ordered to evaluate urinary dysfunction. 3. Please also discuss this with your OB-CARPET JACK and urologist. 4. A barium swallow has been ordered for difficulty swallowing and gagging with foods 5. Avoid smoking marijuana as that make these symptoms worse. 6. An MRI abd has been ordered for surveillance of pancreatic cyst 7. [facility] will call you to schedule MRI defecography 8. We will see you in 3 months Coding Level of Care Code Complex visit Add On G2211 Diagnoses Chronic constipation K59.09 Right upper quadrant abdominal pain R10.11 Abdominal location: right upper quadrant Nausea and vomiting, unspecified vomiting type R11.2 Vomiting type: unspecified Dysphagia, unspecified type R13.10 Dysphagia type: unspecified Pancreatic cyst K86.2 Dysuria R30.0 Nephrolithiasis N20.0 Diabetes E11.9
== END 2025-03-17 12:08 | disposition home or self-care (01) ==
LOC: HO.HGI 11:19
PROVIDERS: PCP Nurse Practitioner Family; Visit Provider Internal Medicine
DX: K59.09 Other constipation (principal); R10.11 Right upper quadrant pain; R11.2 Nausea with vomiting, unspecified; R13.10 Dysphagia, unspecified; K86.2 Cyst of pancreas; R30.0 Dysuria; N20.0 Calculus of kidney; E11.9 Type 2 diabetes mellitus without complications
CPT/HCPCS: 99214

== ENCOUNTER → 2025-03-17 11:18 | Outpatient (BNVA) | payer OTHER, SELFPAY | PROVIDERS: PCP Nurse Practitioner Family; Visit Provider Internal Medicine | DX: Z48.815 Encounter for surgical aftercare following surgery on the digestive system (principal); K59.09 Other constipation; R10.11 Right upper quadrant pain; R11.2 Nausea with vomiting, unspecified; R13.10 Dysphagia, unspecified; K86.2 Cyst of pancreas; R30.0 Dysuria; N20.0 Calculus of kidney; N39.8 Other specified disorders of urinary system; E11.9 Type 2 diabetes mellitus without complications; Z79.899 Other long term (current) drug therapy | CPT/HCPCS: 99212 ==

== ENCOUNTER 2025-03-25 10:59 | Outpatient (REF) | payer OTHER, SELFPAY ==
[2025-03-25 12:18] LABS: Appearance Urine Cloudy; Glucose Urine UA >=1000 mg/dL (Negative); PH 6.5 (5.0-9.0); Specific Gravity - Urine >= 1.030 (1.005-1.025); UMIC TRIGGER UA YES
[2025-03-25 12:33] LABS: Microalbum/Creatinine Ratio Ur 19.5 ug/mg cr (<30)
[2025-03-25 12:40] LABS: Alanine Aminotransferase 47 U/L (0-31); Albumin Level 4.3 g/dL (3.5-5.0); Alkaline Phosphatase 121 U/L (39-117); Anion Gap 11 (12-20); Aspartate Amino Transferase 33 U/L (5-31); Blood Urea Nitrogen 15 mg/dL (9-16); Calcium 9.3 mg/dL (8.4-10.2); Carbon Dioxide 29 mmol/L (22-29); Chloride 104 mmol/L (96-108); Cholesterol 135 mg/dL (<200); Estimated Glomerular Filt Rate > 60; HDL Cholesterol 30 mg/dL (>40); Potassium 3.8 mmol/L (3.3-5.1); Sodium 140 mmol/L (135-145); Total Protein 7.4 g/dL (6.5-8.0); Triglycerides 97 mg/dL (<150)
--- OUTSIDE RECORDS SUMMARY | 2025-03-25 13:30 | XMS_ITS | Encounter Summary ---
Author Organization [facility] Address [address] [place] [address] Phone Care Team Providers Care Certified Medical Technician Assistant Name Role Phone Minerva Ferrara NP Primary Care Provider Reason for Visit * Physical Therapy (Within 1 month) - Authorized Specialty Diagnoses / Procedures Referred By Amber vásquez Referred To Contact Physical Therapy Diagnoses Undifferentiated connective tissue disease Yancy Hutchinson MD Phone: tel: fax: [email or web address] [address] [address] Phone: tel: Referral ID Status Reason Start Date Expiration Date V isits Requested Visits Authorized [id number] Authorized 02/17/2025 04/09/2025 21 21 Encounter Details Date Type Department Care Team (Latest Contact Info) Description 03/25/2025 1:30 PM EST Office Visit [facility] Services [address] [place] [address] Yancy Hutchinson MD [address], [address] [place], [place] [id number] Lindy Deutsch, PT [address] [place] [address] Fibromyalgia (Primary Dx); Muscle weakness (generalized) Social [...] Progress Notes * Lindy Deutsch, PT - 03/25/2025 1:30 PM EST Physical Therapy Treatment Note Patient Name: Linda Martinez Date of : 1980 This patient has attended 5 visits since the onset Physical Therapy. Referring MD: Yancy Hutchinson MD [address] [place] [address], [address] [place] [id number] Fibromyalgia [M79.7] Precautions: None Has a history of experiencing more pain with exercises - build up gradually Subjective comments: Patient reports that she's doing ok today. Pain comments pre-treatment: Patient reports that her low back is sore today but she didn't feel any big increase in pain after last session. R right hand and wrist are also sore and she's having more difficulty making a fist. (She arrived about 12 minutes late today) Objective Measures: Interventions: Procedural Interventions Parameters THERAPEUTIC EXERCISE -SciFit L2 - 10 min- 758 -Standing heel raises x 10 -Standing hip abduction 5-10 BW only -Standing mini squats x 10 BW -Seated hip adduction with playground ball 5 sec holds 2cx 10 -Seated flexion with p-ball forward and lateral x 5-8 -Side lying open books x 8 each direction - tried standing today, better in side lying -Seated hip abduction with green band 2 x 10 -Seated knee extension w/ 2lb weighs x 15 per LE THERAPEUTIC ACTIVITIES None NEUROMUSCULAR RE-ED None MANUAL THERAPY WEAVING PROFESSOR) STMobs to B UT and periscapular area with patient seated in chair MODALITIES WEAVING PROFESSOR) TENS used during exercises: with 2 x [...] 90 (Hz) Home Exercise Program: Access Code: [email or web address] URL: [email or web address] Date: 03/03/2025 Prepared by: Lindy Deutsch Exercises - Seated Flexion Stretch with Taiwanese Ball - 1 x daily - 7 x weekly - 1 sets - 5-8 reps - Seated Thoracic Flexion and Rotation with Taiwanese Ball - 1 x daily - 7 x weekly - 1 sets - 5-8 reps - Seated Hip Adduction Squeeze with Ball - 1 x daily - 7 x weekly - 1-3 sets - 5-10 reps - Supine Lower Trunk Rotation - 1-2 x daily - 7 x weekly - 1 sets - 5-8 reps Assessment: Patient demonstrated lower symptom irritability this session. Next session may end with TENS Plan: Start with low intensity exercises: try cardio on bike, sciFit, seated elliptical or TM Start with BW and load as tolerated Gentle ROM for lumbar - try palestinian ball flexion Goals: GOAL (Short Term): 4-6 weeks 1. Patient is able to perform lumbar flexion and return to standing without the need for UE support. 2. Patient demonstrates improved hip abduction strength to >/= 4+/5 B. 3. B hamstring strength improved to >/= 4/5 OUTCOME (Correction Officer Supervisor): 8-10 1. Patient demonstrate improved lumbar extension ROM to 50% of normal. 2. B LE strength improved to 4+/5 or better. 3. RASHIDA improved to </= 45%. 4. Patient is independent with HEP and is able to perform exercises with good form and no cues. Patient Stated Goal: Wants to be able to keep working Lindy Deutsch, LALI [id number] documented in this encounter Plan of Treatment Upcoming Encounters Date Type Department Care Team (Late st Contact Info) Description 03/27/2025 9:30 AM EST Office Visit [facility] Rhe[facility] [address] [address] Yancy Hutchinson MD [address] [place] [address], [address] [address] 05/01/2025 10:00 AM EST Office Visit [facility] Rehabilitation Services [address] [place] [address] Yancy Hutchinson MD [address] [place] [address], [address] [address] Lindy Deutsch, PT 8 [place] [address] [email or web address] Scheduled Referrals Name Type Priority Associated Diagnoses Order Schedule Ambulatory referral to [facility] Physical Therapy Outpatient Referral Routine Undifferentiated connective tissue disease Ordered: 12/24/2024 documented as of this encounter Visit Diagnoses Diagnosis Fibromyalgia- Primary Unspecified myalgia and myositis Muscle weakness (generalized) documented in this encounter Care Teams Certified Medical Technician Assistant Relationship Specialty Start Date End Date Minerva Ferrara NP [address] [place] [address] [place] [address] [email or web address] PCP - General Nurse Practitioner 09/26/23 documented as of this encounter Additional Source Comments The information contained in this document represents components of the legal health record. It is not the complete legal health record.[facility]
--- OUTSIDE RECORDS SUMMARY | 2025-03-25 14:29 | XMS_ITS | Clinical Summary ---
Demographics Address [address] [place] [address] Home Phone Preferred Language en Marital Status Scientologist Affiliation Unknown Race White Ethnic Group Not or Lati no Author Organization [facility] Address [address] [place] [address] Care Team Providers Care Process Consultant Name Role Phone Unavailable Primary Care Provider [...] Documents on File Type Date Recorded Patient Rounder Hand Expl anation Health Care Decision (hx) 07/09/2016 AD JOHNNIE DIRECTIVE
--- OUTSIDE RECORDS SUMMARY | 2025-03-25 14:29 | XMS_ITS | Encounter Summary ---
Author Organization [facility] Address [address] [place] [address] Phone Care Team Providers Care Janitor And Cleaner Name Role Phone Thu Gallardo ENAMEL BUFFER Primary Care Provider + Minerva Ferrara ENAMEL BUFFER Primary Care Provider Encounter Details Date Type Department Care Team (Late st Contact Info) Description 10/10/2020 Procedure Pass [facility], Ct Scan - [facility] [address] [place] [address] Social History Tobacco Use Types Packs/Day Years [...] 10:00 PM EDT Dara Perez, RACHELE * [place] Suicide Severity Rating Scale (Screener/Recent Self-Report) Question [...] Description 03/27/2025 9:30 AM EST Office Visit [facility] Rheumatology [address] [place] [address] Yancy Huthcinson MD [address] [place] [address] 05/01/2025 10:00 AM EST Office Visit [facility] Rehabilitation Services [address] [place] [address] Yancy Hutchinson MD [address] [place] [address] Lindy Deutsch, PT [address] [place] [address] documented as of this encounter Visit Diagnoses Not on filedocumented in this encounter Care Teams Janitor And Cleaner Relationship Specialty Start Date End Date Thu Gallardo NP [address] [place] [address] PCP - General Nurse Practitioner 10/10/20 09/25/23 Minerva Ferrara NP [address] [place] [address] [place] [address] [email or web address] PCP - General Nurse Practitioner 09/26/23 documented as of this encounter Additional Source Comments The information contained in this document represents components of the legal health record. It is not the complete legal health record.[facility]
--- OUTSIDE RECORDS SUMMARY | 2025-03-25 14:29 | XMS_ITS | Encounter Summary ---
Author Organization [facility] Address [address] [place] [address] Phone Care Team Providers Care Garment Supervisor Name Role Phone Thu Gallardo ASBESTOS BRAKE LINING FINISHER Primary Care Provider + Minerva Ferrara ASBESTOS BRAKE LINING FINISHER Primary Care Provider Encounter Details Date Type Department Care Team (Late st Contact Info) Description 10/10/2020 Procedure Pass [facility], Ct Scan - [facility] [address] [place] [address] Social History Tobacco Use Types Packs/Day Years [...] 10:00 PM EDT Dara Perez, RACHELE * [place] Suicide Severity Rating Scale (Screener/Recent Self-Report) Question [...] Description 03/27/2025 9:30 AM EST Office Visit [facility] Rheumatology [address] [place] [address] Yancy Hutchinson MD [address] [place] [address] 05/01/2025 10:00 AM EST Office Visit [facility] Rehabilitation Services [address] [place] [address] Yancy Hutchinson MD [address] [place] [address] Lindy Deutsch, PT 8 [place] [address] documented as of this encounter Visit Diagnoses Not on filedocumented in this encounter Care Teams Garment Supervisor Relationship Specialty Start Date End Date Thu Gallardo NP [address] [place] [address] PCP - General Nurse Practitioner 10/10/20 09/25/23 Minerva Ferrara NP [address] [place] [address] [place] [address] [email or web address] PCP - General Nurse Practitioner 09/26/23 documented as of this encounter Additional Source Comments The information contained in this document represents components of the legal health record. It is not the complete legal health record.[facility]
--- OUTSIDE RECORDS SUMMARY | 2025-03-25 14:29 | XMS_ITS | Encounter Summary ---
Author Organization [facility] Address [address] [place] [address] Phone Care Team Providers Care Senior Property Manager Name Role Phone Thu Gallardo ROUSTABOUT CREW PUSHER Primary Care Provider + Minerva Ferrara ROUSTABOUT CREW PUSHER Primary Care Provider Encounter Details Date Type Department Care Team (Late st Contact Info) Description 10/10/2020 Procedure Pass [facility] [address] [place] [address] Social History Tobacco Use Types Packs/Day Years [...] 10:00 PM EDT Dara Perez RN * [place] Suicide Severity Rating Scale (Screener/Recent Self-Report) Question Answer Date of Assessment Author 1. Wish to be (Past 1 Month) No 10/10/2020 10:00 PM EDT Blake Holland, RACHELE 2. Non-Specific Active Suici rekha Thoughts (Past 1 Month) No 10/10/2020 10:00 PM EDT Daar Holland, RACHELE 6. Suicidal Behavior (Lifetime) No 10:00 PM EDT Dara Holland RN documented as of this encounter Plan of Treatment Upcoming Encounters Date Type Department Care Team (Late st Contact Info) Description 03/27/2025 9:30 AM EST Office Visit [facility] Rheumatology [address] [place] [address] Yancy Hutchinson MD [address] [address] 05/01/2025 10:00 AM EST Office Visit [facility] Rehabilitation Services 8 [place] [address] Yancy Hutchinson MD [address] [place] [address] Lindy Deutsch, PT 8 [place] [address] documented as of this encounter Visit Diagnoses Not on filedocumented in this encounter Care Teams Senior Property Manager Relationship Specialty Start Date End Date Thu Gallardo NP [address] [place] [address] PCP - General Nurse Practitioner 10/10/20 09/25/23 Minerva Ferrara NP [address] [place] [address] [facility] [address] [email or web address] PCP - General Nurse Practitioner 09/26/23 documented as of this encounter Additional Source Comments The information contained in this document represents components of the legal health record. It is not the complete legal health record.[facility]
--- OUTSIDE RECORDS SUMMARY | 2025-03-25 14:30 | XMS_ITS | Encounter Summary ---
Author Organization [facility] Address [address] [place] [address] Phone Care Team Providers Care Funeral Planning Counselor Name Role Phone Minerva Ferrara CUT OUT AND MARKING MACHINE OPERATOR Primary Care Provider Encounter Details Date Type Department Care Team (Late st Contact Info) Description 08/27/2024 Telephone CD Pulmonary, Allergy and Critical Care Medicine [address] [place], [place] [id number] Cathy [email or web address] Social History Tobacco Use Types Packs/Day Years [...] Department Care Team (Late Contact Info) Description 03/27/2025 9:30 AM EST Office Visit [facility] Rheumatology [address] [place] [address] Yancy Hutchinson MD 22 [facility], [address] [place] [address] 05/01/2025 10:00 AM EST Office Visit [facility] Rehabilitation Services [address] [place] [address] Yancy Hutchinson MD 22 [facility], [address] [place] [address] Lnidy Deutsch, PT 8 [place] [address] documented as of this encounter Visit Diagnoses Not on filedocumented in this encounter Care Teams Funeral Planning Counselor Relationship Specialty Start Date End Date Minerva Ferrara NP [address] [place] [address] Dr ISABEL [facility] [address] [email or web address] PCP - General Nurse Practitioner 09/26/23 documented as of this encounter Additional Source Comments The information contained in this document represents components of the legal health record. It is not the complete legal health record.[facility]
--- OUTSIDE RECORDS SUMMARY | 2025-03-25 14:30 | XMS_ITS | Encounter Summary ---
Author Organization [facility] Address [address] [place] [address] Phone Care Team Providers Care Distance Education Director Name Role Phone Thu Gallardo INSULATION FOREMAN Primary Care Provider + Minerva Ferrara INSULATION FOREMAN Primary Care Provider Encounter Details Date Type Department Care Team (Late st Contact Info) Description 10/10/2020 Procedure Pass [facility], [facility] [address] [place] [address] Social History Tobacco Use Types Packs/Day Years [...] 10:00 PM EDT Dara Perez, RACHELE * [place] Suicide Severity Rating Scale (Screener/Recent Self-Report) Question [...] Description 03/27/2025 9:30 AM EST Office Visit [facility] Rheumatology [address] [place] [address] Yancy Hutchinson MD [address] [place] [address] 05/01/2025 10:00 AM EST Office Visit [facility] Rehabilitation Services [address] [place] [address] Yancy Hutchinson MD [address] [place] [address] Lindy Deutsch, PT 8 [place] [address] documented as of this encounter Visit Diagnoses Not on filedocumented in this encounter Care Teams Distance Education Director Relationship Specialty Start Date End Date Thu Gallardo NP 46 [place] [address] PCP - General Nurse Practitioner 10/10/20 09/25/23 Minerva Ferrara NP [address] [place] [address] [place] [address] [email or web address] PCP - General Nurse Practitioner 09/26/23 documented as of this encounter Additional Source Comments The information contained in this document represents components of the legal health record. It is not the complete legal health record.[facility]
--- OUTSIDE RECORDS SUMMARY | 2025-03-25 14:30 | XMS_ITS | Clinical Summary ---
Demographics Address [address] [place] [address] [address] [place] [address] Home Phone Mobile Phone Email Address Preferred Language Botswanan Marital Status /Civil Union Bahai Affiliation Unknown Race White Ethnic Group Not or Lati no Author Organization [facility] Address [address] [place] [address] Phone Care Team Providers Care Investment Director Name Role Phone Minerva Ferrara EXPORT SPECIALIST Primary Care Provider Allergies Active Allergy Reactions [...] numbness MRI and echocardiogram without acute findings, [facility] neurolog[place] feels this may be migraine and patient should follow-up with neurologist within 6 weeks Encounters Date Type Department Care Team Description 03/25/2025 1:30 PM EST Office Visit [address] [place] [address] Yancy Hutchinson MD Kenny, Erin, PT Fibromyalgia (Primary Dx); Muscle weakness (generalized) 03/19/2025 1:15 PM EST Office Visit [address] [place] [address] Yancy Hutchinson MD Kenny, Erin, PT Fibromyalgia (Primary Dx); Muscle weakness (generalized) 03/10/2025 2:00 PM EST Office Visit [address] [address] Yancy Hutchinson, Lindy Keane, PT Fibromyalgia (Primary Dx); Muscle weakness (generalized) 03/03/2025 2:00 PM EST Office Visit [facility] Services [address] [place] [address] Yancy Hutchinson, Lindy Keane, PT Fibromyalgia (Primary Dx); Muscle weakness (generalized) 02/24/2025 2:00 PM EST Office Visit [address] [address] Yancy Hutchinson, Lindy Keane, PT Fibromyalgia (Primary Dx); Muscle weakness (generalized) 01/01/2025 Orders Only [facility] Rheumatology [address] [place] [address] ProviderWilma MD 12/28/2024 1:26 PM EDT - 12/28/2024 11:59 PM EDT Hospital Encounter [facility] Main [address] [place] [address] Yancy Hutchinson MD Discharge Disposition: Home or Self Care 12/24/2024 11:00 AM EDT Office Visit [facility] Rheumatology [address] [place] [address] Yancy Hutchinson MD Undifferentiated connective tissue disease (Primary Dx); Fibromyalgia; Bilateral carpal tunnel syndrome; Lymphadenopathy, axillary 12/24/2024 Telephone [facility] Rheumatology - Virtual Department [address] [place] [address] Yancy Hutchinson MD Appointment from Last 3 [...] Description 03/27/2025 9:30 AM EST Office Visit [facility] Rheumatology [address] [place] [address] Yancy Hutchinson MD 22 [facility], [address] [place] [address] 05/01/2025 10:00 AM EST Office Visit [facility] Rehabilitation Services [address] [place] [address] Yancy Hutchinson MD [address] [facility], [address] [place] [address] Lindy Deutsch, PT 8 [place] [address] [email or web address] Health Maintenance Due Date Last Done Comments [...] 1:27 PM EDT Undifferentiated connective tissue disease [id number] I ANTIBODIES Routine 12/28/2024 1:27 PM EDT [...] 1:27 PM EDT Undifferentiated connective tissue disease SUPERVISOR LIQUID YEAST ANTIBODY Routine 12/28/2024 1:27 PM EDT Undifferentiated [...] 1:27 PM EDT Undifferentiated connective tissue disease HEMOGLOBIN A1C Routine 10/11/2020 5:42 AM EDT from Last 3 Months or Most Recently Relevant to Health Maintenance Results * SUPERVISOR LIQUID YEAST ANTIBODY (12/28/2024 1:27 PM EDT) Pathologist [facility] SUPERVISOR LIQUID YEAST AB, IGG 0.6 <1.0 (Negative) [facility]PATH [address]IOR Blood 12/28/2024 1:27 PM EDT 12/28/2024 1:43 PM EDT Yancy Hutchinson MD LAB BLOOD ORDERABLES Cindy l Result Performing Organization Address City/Special Care Hospital/ZIP Co de Phone Number [facility] LAB MED/PATH [address] [place] [address] * SS-A/SS-B antibodies (12/28/2024 1:27 PM EDT) Pathologist [facility] ANTI-RO ANTIBODY 2.37 0.00 - 19.99 OD [facility]IT [facility] RO INTERPRETATION Negative Negative [facility] ANTI-LA ANTIBODY 5.17 0.00 - 19.99 OD [facility] LA INTERPRETATION Negative Negative [facility] Blood 12/28/2024 1:27 PM EDT 12/28/2024 1:42 PM EDT Yancy Hutchinson MD LAB BLOOD ORDERABLES Cindy l Result [facility] [address] [place] [address] * (ABNORMAL) Comprehensive metabolic panel (12/28/2024 1:27 PM EDT) Pathologist [facility] SODIUM 136 133 - 146 mmol/L [facility] POTASSIUM 3.9 3.3 - 5.1 mmol/L [facility] CHLORIDE 102 96 - 108 mmol/L [facility] CO2 22 21 - 35 mmol/L [facility] BUN 15 6 - 19 mg/dL [facility] CREATININE 0.60 0.5 - 1.5 mg/dL [facility] GLUCOSE 207(H) 70 - 99 mg/dL [facility] ALBUMIN 4.0 3.9 - 4.8 g/dL [facility] TOTAL PROTEIN 7.1 6.5 - 8.0 g/dL [facility] CALCIUM 8.9 8.4 - 10.3 mg/dL [facility] ALKALINE PHOSPHATASE 145(H) 39 - 117 U/L [facility] TOTAL BILIRUBIN <0.2 0.0 - 1.2 mg/dL [facility] AST 28 0 - 37 U/L [facility] ALT 31 0 - 40 U/L [facility] GLOBULIN 3.1 1 - 4.8 g/dL [facility] EGFR 114 >59 mL/min/1.7 3m2 [facility] Comment:Estimated glomerular filtration rate calculated using the CKD-EPI refit equation. ANION GAP 16 10 - 20 mmol/L [facility] Blood 12/28/2024 1:27 PM EDT 12/28/2024 1:41 PM EDT Yancy Hutchinson MD LAB BLOOD BKR ORDERABLES Final Result [facility] [address] [place], [place] [id number] * U1RNP and Kruger antibodies (12/28/2024 1:27 PM EDT) ANTI-SM ANTIBODY 7.24 0.00 - 19.99 OD [facility] SM INTERPRETATION Negative Negative [facility] ANTI-SUPERVISOR LIQUID YEAST ANTIBODY 5.92 0.00 - 19.99 OD [facility] SUPERVISOR LIQUID YEAST INTERPRETATION Negative Negative [facility] Blood 12/28/2024 1:27 PM EDT 12/28/2024 1:42 PM EDT Yancy Hutchinson MD LAB BLOOD ORDERABLES Cindy l Result [address] [address] * CCP IgG antibodies (12/28/2024 1:27 PM EDT) ANTI-CCP IGG <8 0 - 16 U/mL [facility] Blood 12/28/2024 1:27 PM EDT 12/28/2024 1:42 PM EDT Yancy Hutchinson MD LAB BLOOD BKR ORDERABLES Final Result Performing Organization Address [facility]/ZIP Co de Phone Number [address] [address] * Scl-70 antibody (12/28/2024 1:27 PM EDT) Pathologist [facility] SCL 70 AB, IGG <0.2 <1.0 (Negative) U [facility] LAB MED/PATH [address] Blood 12/28/2024 1:27 PM EDT 12/28/2024 1:43 PM EDT Yancy Hutchinson MD LAB BLOOD ORDERABLES Cindy l Result Performing Organization Address [facility] de Phone Number [facility] LAB MED/PATH [address] [place] [address] * Double stranded DNA antibodies (12/28/2024 1:27 PM EDT) Pathologist [facility] ANTI DSDNA ANTIBODY Negative at 1:10 [facility] Comment: Dequan Avalos M.D., Director Clinical Immunology Laboratory [id number] Normal: Negative at 1:10 To interpret a negative test for anti-kaibab or double stranded DNA antibodies in a [...] BKR ORDERABLES Final Result Performing Organization Address [facility]/State/ZIP Co de Phone Number [facility] [address] [place] [address] * Ycgi-1-oopfsbogdtrz I antibodies (12/28/2024 1:27 PM EDT) [facility] [id number] IGG <9.4 <15.0 (Negative) U/mL [facility] LAB MED/PATH [address]PERIOR Beta 2 GP1 Ab IgM <9.4 <15.0 (Negative) U [facility] LAB MED/PATH [place] Blood 12/28/2024 1:27 PM EDT 12/28/2024 1:43 PM EDT us Yancy Hutchinson MD LAB BLOOD BKR ORDERABLES Final Result [facility] LAB MED/PATH [place] [address] [place] [address] * Lupus anticoagulant panel (12/28/2024 1:27 PM EDT) [facility] Lupus Anticoagulant Tech Interpretation SEE NOTE [facility] DPT OF LAB MED AND PAT+ Comment: (NOTE) No evidence of a lupus anticoagulant based on results of Prothrombin Time (PT), Activated Partial Thromboplastin Time (APTT), and Dilute Russells Viper Venom Time (DRVVT). NOTE: Interpretation not reviewed by physician. Prothrombin Time (PT) 11.5 9.4 - 12.5 sec [facility] DPT OF LAB MED AND PAT+ INR 1.1 0.9 - 1.1 [facility] DPT OF LAB MED AND PAT+ Comment: (NOTE) ADDITIONAL INFORMATION Standard intensity warfarin therapeutic range: 2.0 to 3.0 High intensity warfarin therapeutic range: 2.5 to 3.5 Activated Partial Thromboplastin Time 27 25 - 37 sec [facility] DPT OF LAB MED AND PAT+ DRVVT Screen Ratio 0.98 <1.20 ratio [facility] DPT OF LAB MED AND PAT+ Blood 12/28/2024 1:27 PM EDT 12/28/2024 1:43 PM EDT Yancy Hutchinson MD LAB BLOOD BKR ORDERABLES Final Result [facility] DPT OF LAB MED AND PAT+ [address] [place] [address] * Anti-cardiolipin antibodies (12/28/2024 1:27 PM EDT) PHOSPHOLIPID IGM,S <9.4 <15.0 (Negative) [facility]/PATH [address] DR PHOSPHOLIPID IGG, S <9.4 <15.0 (Negative) GPL [facility] LAB [facility]/PATH [address] DR Blood 12/28/2024 1:27 PM EDT 12/28/2024 1:43 PM EDT Yancy Hutchinson MD LAB BLOOD BKR ORDERABLES Final Result Performing Organization Address [facility]/ZIP Co de Phone Number [facility] LAB MED/PATH [address] [place] [address] * (ABNORMAL) Sedimentation rate (ESR) (12/28/2024 1:27 PM EDT) ESR 33(H) 0 - 20 mm/h [facility] Blood 12/28/2024 1:27 PM EDT 12/28/2024 1:41 PM EDT Yancy Hutchinson MD LAB BLOOD BKR ORDERABLES Final Result [facility] [address] [place] [address] * CBC and differential (12/28/2024 1:27 PM EDT) WBC 8.56 4.00 - 11.00 K/uL [facility] RBC 4.76 4.00 - 5.20 M/uL [facility] HGB 14.1 12.0 - 16.0 g/dL [facility] HCT 41.6 36.0 - 46.0 % [facility] PLT 287 150 - 450 K/uL [facility] MCV 87.4 80.0 - 100.0 fL [facility] MCH 29.6 27.0 - 31.0 pg [facility] MCHC 33.9 32.0 - 36.0 g/dL [facility] RDW 13.1 11.5 - 14.5 % [facility] MPV 9.6 8.4 - 12.0 fL [facility] NRBC 0.00 0.00 /100 WBCs [facility] ABSOLUTE NRBC 0.00 0.00 K/uL [facility] DIFF METHOD Auto [facility] NEUTS 68.2 48.0 - 76.0 % [facility] LYMPHS 22.8 18.0 - 41.0 % [facility] MONOS 6.2 4.0 - 11.0 % [facility] EOS 2.0 0.0 - 5.0 % [facility] BASOS 0.4 0.0 - 1.5 % [facility] Granulocytes, immature (%) 0.4 0.0 - 0.9 % [facility] ABSOLUTE NEUTS 5.85 1.92 - 7.60 K/uL [facility] ABSOLUTE LYMPHS 1.95 0.72 - 4.10 K/uL [facility] ABSOLUTE MONOS 0.53 0.16 - 1.10 K/uL [facility] ABSOLUTE EOS 0.17 0.00 - 0.50 K/uL [facility] ABSOLUTE BASOS 0.03 0.00 - 0.15 K/uL [facility] Granulocytes, immature 0.03 0.00 - 0.09 K/uL [facility] Blood 12/28/2024 1:27 PM EDT 12/28/2024 1:41 PM EDT us Yancy Hucthinson MD LAB BLOOD BKR ORDERABLES Final Result [facility] [address] [place] [address] * Rheumatoid factor (12/28/2024 1:27 PM EDT) RHEUMATOID FACTOR <10.0 0.0 - 14.0 IU/ml [facility] Blood 12/28/2024 1:27 PM EDT 12/28/2024 1:41 PM EDT us Yancy Hutchinson MD LAB BLOOD BKR ORDERABLES Final Result [address] [address] * Complement C3 (12/28/2024 1:27 PM EDT) C3 144 81 - 157 mg/dl [facility] Blood 12/28/2024 1:27 PM EDT 12/28/2024 1:42 PM EDT us Yancy Hutchinson MD LAB BLOOD BKR ORDERABLES Final Result Performing Organization Address City/[facility]/ZIP Co de Phone Number [address] [address] * Complement C4 (12/28/2024 1:27 PM EDT) C4 29 12 - 39 mg/dL [facility] Blood 12/28/2024 1:27 PM EDT 12/28/2024 1:42 PM EDT us Yancy Hutchinson MD LAB BLOOD BKR ORDERABLES Final Result Performing Organization Address City/[facility]/ZIP Co de Phone Number [address] [address] * (ABNORMAL) C-Reactive Protein (12/28/2024 1:27 PM EDT) C REACTIVE PROTEIN 12.4(H) 0.0 - 4.0 mg/L [facility] Blood 12/28/2024 1:27 PM EDT 12/28/2024 1:41 PM EDT us Yancy Hutchinson MD LAB BLOOD BKR ORDERABLES Final Result [address] [address] * Antinuclear antibody (GERARDO) (12/28/2024 1:27 PM EDT) GERARDO SCREEN ON HEP 2 Negative Negative [facility] Blood 12/28/2024 1:27 PM EDT 12/28/2024 1:41 PM EDT us Yancy Hutchinson MD LAB BLOOD BKR ORDERABLES Final Result [address] [address] * (ABNORMAL) Hemoglobin A1c (10/11/2020 5:42 AM EDT) HEMOGLOBIN A1C 7.3(H) 4.3 - 5.8 % [facility] Blood 10/11/2020 5:42 AM EDT 10/11/2020 6:20 AM EDT us Aileen Wright NP LAB BLOOD BKR ORDERABLE S Final Result Performing Organization Address [facility]/ZIP Co de Phone Number [address] [address] from Last 3 Months or Most Recently Relevant to Health Maintenance Insurance [address] [place] [address] [facility] [address] [place] [facility] apt [place]aa [place] [facility] [place] [address] [place] [address] [place] [address] [place] Advance Directives For more information, please contact: [phone] (9AM - 5PM Martina/[facility], Monday-Monday) Documents on File Type Date Recorded Patient Recordist Chief Expl anation Healthcare Proxy 2020 2:16 PM * Full Code (Latest Code Status on File) Date Activated Date Inactivated Comments 10/10/2020 6:09 PM Question Answer Comments Code Status Confirmed With: Patient Care Teams Investment Director Relationship Specialty Start Date End Date Minerva Ferrara NP [address] [place] [address] [place] [address] [email or web address] PCP - General Nurse Practitioner 09/26/23 Additional Source Comments The information contained in this document represents components of the legal health record. It is not the complete legal health record.[facility]
[2025-03-26 05:08] LABS: Follicle Stimulating Hormone 11.3 mIU/mL
[2025-03-27 13:27] LABS: HBsAGNum1 0.25 S/CO (0.00-0.99); Hepatitis B Surface Antigen Negative (Negative)
== END 2025-03-25 11:00 | disposition home or self-care (01) ==
LOC: HO.LAB 10:59
PROVIDERS: Internal Medicine; Absent Provider Obstetrics & Gynecology; PCP Nurse Practitioner Family; Visit Provider Nurse Practitioner Family
DX: E53.8 Deficiency of other specified B group vitamins (principal); I25.10 Atherosclerotic heart disease of native coronary artery without angina pectoris; E11.8 Type 2 diabetes mellitus with unspecified complications; R23.2 Flushing; K76.0 Fatty (change of) liver, not elsewhere classified
CPT/HCPCS: 36415; 80053; 80061; 81001; 81003; 82043; 82248; 82570; 83001; 83002; 83036; 87340

== ENCOUNTER 2025-03-28 09:29 | Outpatient (REF) | payer OTHER, SELFPAY ==
[2025-03-28 16:33] LABS: Resp Syncy Virus RNA Qual PCR NEGATIVE (Negative); SARS COV2 PCR INHOUSE NEGATIVE (Negative)
== END 2025-03-28 09:30 | disposition home or self-care (01) ==
LOC: HO.LAB 09:29
PROVIDERS: Physician Assistant; PCP Nurse Practitioner Family
DX: B34.9 Viral infection, unspecified (principal); Z72.89 Other problems related to lifestyle; J45.901 Unspecified asthma with (acute) exacerbation; R09.89 Other specified symptoms and signs involving the circulatory and respiratory systems; Z87.891 Personal history of nicotine dependence
CPT/HCPCS: 87637; 99212

== ENCOUNTER 2025-03-28 09:29 | Outpatient (AMB) | payer OTHER, SELFPAY ==
--- OUTSIDE RECORDS SUMMARY | 2025-03-25 13:30 | XMS_ITS | Encounter Summary ---
Demographics Address [address] [place] [address] [address] [place] [address] Home Phone Mobile Phone Email Address Preferred Language Spanish Marital Status /Civil Union Episcopal Affiliation Unknown Race White Ethnic Group Not or Lati no Author Organization [facility] Address [address] [place] [address] Phone Care Team Providers Care Windmill Mechanic Name Role Phone Minerva Ferrara NP Primary Care Provider Reason for Visit * Physical Therapy (Within 1 month) - Authorized Specialty Diagnoses / Procedures Referred By Amber vásquez Referred To Contact Physical Therapy Diagnoses Undifferentiated connective tissue disease Yancy Hutchinson MD Phone: tel: fax: [email or web address] [address] [place] [address] Phone: tel: Referral ID Status Reason Start Date Expiration Date V isits Requested Visits Authorized [id number] Authorized 02/17/2025 04/09/2025 21 21 Encounter Details Date Type Department Care Team (Late st Contact Info) Description 03/25/2025 1:30 PM EST Office Visit [facility] [address] [place] [address] Yancy Hutchinson MD [address], [address] [place] [address] Lindy Deutsch, PT [address] [place] [address] Fibromyalgia (Primary Dx); Muscle weakness (generalized) Social [...] Physical Therapy. 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 Patient is able to perform lumbar flexion and return to standing without the need for UE support. 2. Patient demonstrates improved hip abduction strength to >/= 4+/5 B. 3. B hamstring strength improved to >/= 4/5 OUTCOME (Riding Coach): 8-10 1. Patient demonstrate improved lumbar extension ROM to 50% of normal. 2. B LE strength improved to 4+/5 or better. 3. RASHIDA improved to </= 45%. 4. Patient is independent with HEP and is able to perform exercises with good form and no cues. Patient Stated Goal: Wants to be able to keep working Lindy Deutsch, [place] [id number] documented in this encounter Plan of Treatment Upcoming Encounters Date Type Department Care Team (Late st Contact Info) Description 05/01/2025 10:00 AM EST Office Visit [facility] [address] [place] [address] Yancy Hutchinson MD [address] [place] [address] Lindy Deutsch, PT [address] [place] [address] Scheduled Referrals Name Type Priority Associated Diagnoses Order Schedule Ambulatory referral to [facility] Physical Therapy Outpatient Referral Routine Undifferentiated connective tissue disease Ordered: 12/24/2024 documented as of this encounter Visit Diagnoses Diagnosis Fibromyalgia- Primary Unspecified myalgia and myositis Muscle weakness (generalized) documented in this encounter Care Teams Windmill Mechanic Relationship Specialty Start Date End Date Minerva Ferrara NP [address] [place] [address] [place] [address] [email or web address] PCP - General Nurse Practitioner 09/26/23 documented as of this encounter Additional Source Comments The information contained in this document represents components of the legal health record. It is not the complete legal health record.[facility]
[2025-03-28 09:33] VITALS: BP 112/80; PULSE 93; TEMP 36.5; O2SAT 99; BMI 35.2
--- NOTE | 2025-03-28 09:33 | AM.OFFWIN_ITS ---
Intake Vital Signs 03/28/25 09:33 Height 5 ft 3 in Weight 199 lb BMI 35.2 BP 112/80 Blood Pressure Location Lt brachial Position Sitting Pulse 93 Pulse Source Pulse Oximeter Temp 97.7 F Temp Source Oral Pulse Oximetry (%) 99 Oxygen Delivery Method Room Air Intake Visit Reasons: EP Fever, SOB, congestion, body aches, nausea Intake Note: pt presents with chest congestion and productive coughing, chest tightness with breathing, dry throat sob, sinus congestion, nausea, body aches, weakness, d adelia, lightheaded, fevers (99.8-101.7)- all s/s beginning 2 days ago and worsening yesterday. states is smoking non nicotine vapes- denies h/o COPD Patient Tobacco Use Status: Former Tobacco user Allergies hydrocodone (From VICODIN) Allergy (Mild, Verified 03/28/25 09:39) HIVES oxycodone (From PERCOCET) Allergy (Mild, Verified 03/28/25 09:39) HIVES azithromycin (AZITHROMYCIN) Allergy (Unknown, Verified 03/28/25 09:39) NAUSEA & VOMITING erythromycin base (From ERYTHROCIN) Allergy (Unknown, Verified 03/28/25 09:39) NAUSEA & VOMITING metformin Adverse Reaction (Mild, Uncoded 03/28/25 09:39) Gastrointestinal Upset Do you need a note to return to daycare/school/sports/work: Yes HPI HPI Comments History of Present Illness Details History - The patient is a 44 year old female pr esenting with concerns of an upper respiratory infection. - She reports starting to feel unwell ea rlier in the week, with symptoms becoming more pronounced 2 days ago, and feeling full blown sick since yesterday morning. - She notes experiencing extreme fatigue 5 days ago, sleeping most of the day. - Her symptoms include head and chest co ngestion, shortness of breath, and fevers up to approximately 101.8 F, which came down to the high 99s with Tylenol. - This morning was the first time in 48 hours she has not had a fever. - She also developed a cough this mornin g and reports bilateral ear pain and sinus pain. - The patient has been experiencing sign ificant dry mouth and throat, making it difficult to swallow despite increased water intake, which is attributed to dehydration from the fever. - She has been taking DayQuil and Sudafe d for her symptoms. - Her past medical history is significan t for asthma, for which she uses a rescue inhaler as needed; she is currently out of her inhaler and requires a new prescription. - Regarding her social history, she quit smoking cigarettes and switched to nicotine-free vapes to manage the behavioral habit, but has not vaped in three days due to dyspnea. [facility] Medical History Postoperative pain Nausea with vomiting, unspecified Nephrolithiasis Periodic limb movements of sleep Anemia Asthma Sleep apnea Migraine Sinusitis Breast pain, left Hypertension Sleep apnea Bipolar 1 disorder Depression Anxiety delivery delivered Diabetes Sciatica Kidney infection Kidney stones HTN (hypertension) Fibromyalgia Lupus Surgical History S/P hemorrhoidectomy (10/28/24) Hx of colonoscopy History of esophagogastroduodenoscopy (EGD) H/O section H/O: hysterectomy Family History Maternal Grandmother HTN (hypertension) Diabetes Cancer Mother Ovarian cancer Other FH: mental illness Substance use Social History Household Members: Spouse Housing: Apartment Are you a primary aged or disabled care worker to a significant other at home: No Do you presently have visiting nurse or other home services: No Alcohol intake: current Alcohol intake frequency: holidays/special occasions only Alcohol type: hard liquor Patient Tobacco Use Status: Former Tobacco user Tobacco use type: Smokeless Tobacco e-Cigarette/Vaping Use: Currently Using Substance Use Type: Marijuana Advance Directives Date on File: 02/02/24 service: No Current occupational status: employed 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 - HEENT: Reports head congestion, bilateral ear pain, sinus pain, dry mouth, and throat dryness making swallowing difficult. - Respiratory: Reports chest congestion, shortness of breath, and cough which started this morning. All systems reviewed and are unremarkable except as noted in HPI Physical Exam Exam Exam: Physical Exam General: Cooperative, healthy appearing, comfortable and no acute distress Orientation/consciousness: Patient oriented x3 Limitations: No limitations Head: Normal to inspection Ears: Hearing grossly normal bilaterally, external ears normal, EAC's normal bilaterally and TM's normal bilaterally Nose: Normal external nose present, Normal nares present and No nasal discharge present Face and sinus: Normal facial exam and slight frontal sinuses ttp Mouth: Normal oral and palatal mucosa present and moist mucous membranes Throat: tonsils normal, no exudates, uvula midline, posterior oropharynx erythema Eyes: Appearance normal, both eyes and all related structures Neck: Normal visual inspection, full ROM Respiratory: Clear to auscultation bilaterally. Normal respiratory effort, able to speak in complete sentences, actively coughing, no respiratory distress, not tachypneic, no tripod positioning and no use of accessory muscles Cardiovascular: Regular rate and rhythm. Normal S1 and S2 Skin: No rashes or lesions noted Neuro: Patient oriented x3 Extremities: Normal to inspection and Yes no clubbing, cyanosis or edema Vital Signs: Last Vital Signs Temp 97.7 F 03/28/25 09:33 Pulse 93 03/28/25 09:33 BP 112/80 03/28/25 09:33 Pulse Ox 99 03/28/25 09:33 Oxygen Delivery Method Room Air 03/28/25 09:33 BMI result Body Mass Index 35.2 Assessment & Plan Assessment & Plan (1) Acute viral syndrome: Code(s): B34.9 - Viral infection, unspecified Plan: Plan Patient was informed and verbally consented to the use of an ambient scribe for clinic note documentation during this visit. Acute Viral Illness, Suspected Influenza - VSS, pt well appearing and PE unremarkable. - The patient's symptoms are highly suggestive of an acute viral illness, likely influenza. - A nasal swab for influenza, COVID-19, and RSV was collected, with results pending. - If the influenza test is positive, a prescription for Tamiflu will be sent to the pharmacy. - The patient was advised to continue taking Sudafed for congestion, as her blood pressure seems to tolerate it. - Emphasis was placed on increasing fluid intake to combat dehydration and using symptomatic relief measures like hot tea with honey. - A work note was provided for the past, current, and next shift. (2) Vapes non-nicotine containing substance: Code(s): Z72.89 - Other problems related to lifestyle Plan: - The patient has quit cigarettes and is currently using nicotine-free vapes. - She was counseled on the harmful effects of vaping chemicals on the lungs and encouraged to use the current illness as an opportunity to quit entirely. - Hard candies were suggested as an alternative for the oral fixation habit. (3) Mild asthma with acute exacerbation: Code(s): J45.901 - Unspecified asthma with (acute) exacerbation Plan: - The patient is experiencing shortness of breath in the setting of a viral illness, consistent with an asthma exacerbation. - A prescription for an albuterol rescue inhaler was sent to the pharmacy with instructions to use two puffs every 4-6 hours as needed for shortness of breath or cough. - A prescription for an oral steroid was sent as a backup, with instructions to fill and take it if breathing worsens, advising her to take it in the morning. Orders: Orders SARS-CoV2/FLU/RSV Today R09.89 - Other specified symptoms and signs involving the circulatory and respiratory systems Medications: New prednisone 40 mg (2 x 20 mg) PO QAM 10 tabs 0RF Refilled albuterol sulfate 90 mcg/actuation 2 puffs inhalation Q4-6H PRN 1 ea 3RF shortness of breath or wheezing Coding Level of Care Code Est Pt Level 4 (72860) Diagnoses Acute viral syndrome B34.9 Vapes non-nicotine containing substance Z72.89 Mild asthma with acute exacerbation J45.901
--- OUTSIDE RECORDS SUMMARY | 2025-03-28 10:10 | XMS_ITS | Clinical Summary ---
Demographics Address [address] [place] [address] Home Phone Preferred Language en Marital Status Quaker Affiliation Unknown Race White Ethnic Group Not or Lati no Author Organization [facility] Address [address] [place] [address] Care Team Providers Care Special Education Instructor Name Role Phone Unavailable Primary Care Provider [...] Documents on File Type Date Recorded Patient Macadam Raker Expl anation Health Care Decision (hx) 07/09/2016 AD JOHNNIE DIRECTIVE
--- OUTSIDE RECORDS SUMMARY | 2025-03-28 10:10 | XMS_ITS | Encounter Summary ---
Demographics Address [address] [place] [address] [address] [place] [address] Home Phone Mobile Phone Email Address Preferred Language Sinhala Marital Status /Civil Union Temple Affiliation Unknown Race White Ethnic Group Not or Lati no Author Organization [facility] Address [address] [place] [address] Phone Care Team Providers Care Group Work Program Director Name Role Phone Thu Gallardo BUSINESS CENTER MANAGER Primary Care Provider + Minerva Ferrara BUSINESS CENTER MANAGER Primary Care Provider Encounter Details Date Type Department Care Team (Late Contact Info) Description 10/10/2020 Procedure Pass [facility], Ct Scan - [address] [address] Social History Tobacco Use Types Packs/Day Years [...] Department Care Team (Late Contact Info) Description 05/01/2025 10:00 AM EST Office Visit [facility] [address] [place] [address] Yancy Hutchinson MD [address], [address] [place] [address] Lindy Deutsch, PT [address] [place] [address] [email or web address] documented as of this encounter Visit Diagnoses Not on filedocumented in this encounter Care Teams Group Work Program Director Relationship Specialty Start Date End Date Thu Gallardo NP [address] [place] [address] PCP - General Nurse Practitioner 10/10/20 09/25/23 Minerva Ferrara NP [address] [place] [address] [place] [address] [email or web address] PCP - General Nurse Practitioner 09/26/23 documented as of this encounter Additional Source Comments The information contained in this document represents components of the legal health record. It is not the complete legal health record.[facility]
--- OUTSIDE RECORDS SUMMARY | 2025-03-28 10:10 | XMS_ITS | Encounter Summary ---
Author Organization [facility] Address [address] [place] [id number] Phone Care Team Providers Care Upholsterer [employer] Name Role Phone Minerva Ferrara PASSPORT APPLICATION EXAMINER Primary Care Provider Encounter Details Date Type Department Care Team (Late Contact Info) Description 08/27/2024 Telephone [facility] Pulmonology, Allergy [facility] Medicine [facility] [address] [place] [address] Cathy [email or web address] Social History Tobacco Use [...] 05/01/2025 10:00 AM EST Office Visit [facility] [address] [place] [address] Yancy Hutchinson MD [address] [place] [address] [email or web address] Lindy Deutsch, PT [address] [place] [address] [email or web address] documented as of this encounter Visit Diagnoses Not on filedocumented in this encounter Care Teams U[employer] Relationship Specialty Start Date End Date Minerva Ferrara NP [address] [place] [address] [facility] [place] [address] [email or web address] PCP - General Nurse Practitioner 09/26/23 documented as of this encounter Additional Source Comments The information contained in this document represents components of the legal health record. It is not the complete legal health record.[facility]
--- OUTSIDE RECORDS SUMMARY | 2025-03-28 10:10 | XMS_ITS | Clinical Summary ---
Demographics Address [address] [place] [address] ave [address] [place] [address] Home Phone Mobile Phone Email Address Preferred Language Citizen Of [place] Marital Status /Civil Union Advent Affiliation Unknown Race White Ethnic Group Not or Lati no Author Organization [facility] Address [address] [place] [address] Phone Care Team Providers Care Solar Sales Ambassador Name Role Phone Minerva Ferrara ASSISTANT STORE MANAGER Primary Care Provider Allergies Active Allergy Reactions [...] numbness MRI and echocardiogram without acute findings, [facility] neurologist feels this may be migraine and patient should follow-up with neurologist within 6 weeks Encounters Date Type Department Care Team Description 03/25/2025 1:30 PM EST Office [facility] [address] [place] [address] [place] [address] Yancy Hutchinson MD Kenny, Erin, PT Fibromyalgia (Primary Dx); Muscle weakness (generalized) 03/19/2025 1:15 PM EST Office Visit [facility] [address] [place] [address] [place] [address] Yancy Hutchinson MD Kenny, Erin, PT Fibromyalgia (Primary Dx); Muscle weakness (generalized) 03/10/2025 2:00 PM EST Office Visit [facility] [address] [place] [address] Yancy Hutchinson, Lindy Keane, PT Fibromyalgia (Primary Dx); Muscle weakness (generalized) 03/03/2025 2:00 PM EST Office Visit [facility] [address] [place] [address] Yancy Hutchinson, Lindy Keane, PT Fibromyalgia (Primary Dx); Muscle weakness (generalized) 02/24/2025 2:00 PM EST Office Visit [facility] [address] [place] [address] Yancy Hutchinson, Lindy Keane, PT Fibromyalgia (Primary Dx); Muscle weakness (generalized) 01/01/2025 Orders Only [facility] [address] [place] [address] ProviderWilma MD 12/28/2024 1:26 PM EDT - 12/28/2024 11:59 PM EDT Hospital Encounter [facility] Main [address] [place] [address] Yancy Hutchinson MD Discharge Disposition: Home or Self Care from Last 3 Months Immunizations Immunization Administration [...] Visit [facility] [address] [place] [address] Yancy Hutchinson MD [address] [facility], [address] [place] [address] Lindy Deutsch, PT [address] [place] [address] Health Maintenance Due Date Last Done Comments [...] 1:27 PM EDT Undifferentiated connective tissue disease [id number] I ANTIBODIES Routine 12/28/2024 1:27 PM EDT [...] 1:27 PM EDT Undifferentiated connective tissue disease REFRIGERATOR CRATER ANTIBODY Routine 12/28/2024 1:27 PM EDT Undifferentiated [...] Recently Relevant to Health Maintenance Results * REFRIGERATOR CRATER ANTIBODY (12/28/2024 1:27 PM EDT) REFRIGERATOR CRATER AB, IGG 0.6 <1.0 (Negative) [facility]PATH [address] PATEL Blood 12/28/2024 1:27 PM EDT 12/28/2024 1:43 PM EDT us Yancy Hutchinson MD LAB BLOOD ORDERABLES Cindy devika Result [facility] [address] [place] [address] * SS-A/SS-B antibodies (12/28/2024 1:27 PM EDT) Pathologist [facility] ANTI-RO ANTIBODY 2.37 0.00 - 19.99 OD UNIT [facility] RO INTERPRETATION Negative Negative [facility] ANTI-LA ANTIBODY 5.17 0.00 - 19.99 OD UNIT [facility] LA INTERPRETATION Negative Negative [facility] Blood 12/28/2024 1:27 PM EDT 12/28/2024 1:42 PM EDT us Yancy Hutchinson MD LAB BLOOD ORDERABLES Cindy fortune Result [address] [address] * (ABNORMAL) Comprehensive metabolic panel (12/28/2024 1:27 PM EDT) [facility] SODIUM 136 133 - 146 mmol/L [facility] POTASSIUM 3.9 3.3 - 5.1 mmol/L [facility] CHLORIDE 102 96 - 108 mmol/L [facility] CO2 22 21 - 35 mmol/L [facility] BUN 15 6 - 19 mg/dL [facility] CREATININE 0.60 0.5 - 1.5 mg/dL [facility] GLUCOSE 207(H) 70 - 99 mg/dL [facility] ALBUMIN 4.0 3.9 - 4.8 g/dL [facility] TOTAL PROTEIN 7.1 6.5 - 8.0 g/dL [facility] CALCIUM 8.9 8.4 - 10.3 mg/dL [facility] ALKALINE PHOSPHATASE 145(H) 39 - 117 U/L [facility] TOTAL BILIRUBIN <0.2 0.0 - 1.2 mg/dL [facility] AST 28 0 - 37 U/L [facility] ALT 31 0 - 40 U/L [facility] GLOBULIN 3.1 1 - 4.8 g/dL [facility] EGFR 114 >59 mL/min/1.7 3m2 [facility] Comment:Estimated glomerular filtration rate calculated using the CKD-EPI refit equation. ANION GAP 16 10 - 20 mmol/L [facility] Blood 12/28/2024 1:27 PM EDT 12/28/2024 1:41 PM EDT Yancy Hutchinson MD LAB BLOOD BKR ORDERABLES Final Result [facility] [address] [place] [address] * U1RNP and Kruger antibodies (12/28/2024 1:27 PM EDT) ANTI-SM ANTIBODY 7.24 0.00 - 19.99 OD UNIT [facility] SM INTERPRETATION Negative Negative [facility] ANTI-REFRIGERATOR CRATER ANTIBODY 5.92 0.00 - 19.99 OD UNIT [facility] REFRIGERATOR CRATER INTERPRETATION Negative Negative [facility] Blood 12/28/2024 1:27 PM EDT 12/28/2024 1:42 PM EDT Yancy Hutchinson MD LAB BLOOD ORDERABLES Cindy l Result [address] [address] * CCP IgG antibodies (12/28/2024 1:27 PM EDT) ANTI-CCP IGG <8 0 - 16 U/mL [facility] Blood 12/28/2024 1:27 PM EDT 12/28/2024 1:42 PM EDT Yancy Hutchinson MD LAB BLOOD BKR ORDERABLES Final Result [address] [address] * Scl-70 antibody (12/28/2024 1:27 PM EDT) SCL 70 AB, IGG <0.2 <1.0 (Negative) [facility]PATH [address] Blood 12/28/2024 1:27 PM EDT 12/28/2024 1:43 PM EDT Yancy Hutchinson MD LAB BLOOD ORDERABLES Cindy l Result [facility] LAB MED/PATH [address] [place] [address] * Double stranded DNA antibodies (12/28/2024 1:27 PM EDT) ANTI DSDNA ANTIBODY Negative at 1:10 [facility] Comment: Dequan Avalos M.D., Director Clinical Immunology Laboratory [id number] Normal: Negative at 1:10 To interpret a negative test for anti-ute or double stranded DNA antibodies in a [...] BKR ORDERABLES Final Result Performing Organization Address City/[facility]/ZIP Co de Phone Number [address] [address] * Gfcv-2-vqovlvzluzdx I antibodies (12/28/2024 1:27 PM EDT) [id number] IGG <9.4 <15.0 (Negative) U/mL [facility]PATH [address]PERIOR Beta 2 GP1 Ab IgM <9.4 <15.0 (Negative) [facility]PATH [address]IOR Blood 12/28/2024 1:27 PM EDT 12/28/2024 1:43 PM EDT Yancy Hutchinson MD LAB BLOOD BKR ORDERABLES Final Result [facility] LAB MED/PATH [place] [address] * Lupus anticoagulant panel (12/28/2024 1:27 PM EDT) Lupus Anticoagulant Tech Interpretation SEE NOTE [facility] DPT OF LAB MED AND PAT+ Comment: (NOTE) No evidence of a lupus anticoagulant based on results of Prothrombin Time (PT), Activated Partial Thromboplastin Time (APTT), and Dilute Russells Viper Venom Time (DRVVT). NOTE: Interpretation not reviewed by physician. Prothrombin Time (PT) 11.5 9.4 - 12.5 sec [facility] DPT OF LAB MED AND PAT+ INR 1.1 0.9 - 1.1 [facility] PAT+ Comment: (NOTE) ADDITIONAL INFORMATION Standard intensity warfarin therapeutic range: 2.0 to 3.0 High intensity warfarin therapeutic range: 2.5 to 3.5 Activated Partial Thromboplastin Time 27 25 - 37 sec [facility] DPT OF LAB MED AND PAT+ DRVVT Screen Ratio 0.98 <1.20 ratio [facility] DPT OF LAB MED AND PAT+ Blood 12/28/2024 1:27 PM EDT 12/28/2024 1:43 PM EDT Yancy Hutchinson MD LAB BLOOD BKR ORDERABLES Final Result [facility] DPT OF LAB MED AND PAT+ [address] [place] [address] * Anti-cardiolipin antibodies (12/28/2024 1:27 PM EDT) [facility] PHOSPHOLIPID IGM,S <9.4 <15.0 (Negative) MPL [facility] LAB MED/PATH [address] PHOSPHOLIPID IGG, S <9.4 <15.0 (Negative) GPL [facility] LAB MED/PATH [address] Blood 12/28/2024 1:27 PM EDT 12/28/2024 1:43 PM EDT us Yancy Hutchinson MD LAB BLOOD BKR ORDERABLES Final Result [facility]PATH [address] [place] [address] * (ABNORMAL) Sedimentation rate (ESR) (12/28/2024 1:27 PM EDT) ESR 33(H) 0 - 20 mm/h [facility] Blood 12/28/2024 1:27 PM EDT 12/28/2024 1:41 PM EDT Yancy Hutchinson MD LAB BLOOD BKR ORDERABLES Final Result Performing Organization Address City/[facility]/ZIP Co de Phone Number [facility] [address] [place] [address] * CBC and differential (12/28/2024 1:27 PM EDT) WBC 8.56 4.00 - 11.00 K/uL [facility] RBC 4.76 4.00 - 5.20 M/uL [facility] HGB 14.1 12.0 - 16.0 g/dL [facility] HCT 41.6 36.0 - 46.0 % [facility] PLT 287 150 - 450 K/uL [facility] MCV 87.4 80.0 - 100.0 fL [facility] MCH 29.6 27.0 - 31.0 pg [facility] MCHC 33.9 32.0 - 36.0 g/dL [facility] RDW 13.1 11.5 - 14.5 % [facility] MPV 9.6 8.4 - 12.0 fL [facility] NRBC 0.00 0.00 /100 WBCs [facility] ABSOLUTE NRBC 0.00 0.00 K/uL [facility] DIFF METHOD Auto [facility] NEUTS 68.2 48.0 - 76.0 % [facility] LYMPHS 22.8 18.0 - 41.0 % [facility] MONOS 6.2 4.0 - 11.0 % [facility] EOS 2.0 0.0 - 5.0 % [facility] BASOS 0.4 0.0 - 1.5 % [facility] Granulocytes, immature (%) 0.4 0.0 - 0.9 % [facility] ABSOLUTE NEUTS 5.85 1.92 - 7.60 K/uL [facility] ABSOLUTE LYMPHS 1.95 0.72 - 4.10 K/uL [facility] ABSOLUTE MONOS 0.53 0.16 - 1.10 K/uL [facility] ABSOLUTE EOS 0.17 0.00 - 0.50 K/uL [facility] ABSOLUTE BASOS 0.03 0.00 - 0.15 K/uL [facility] Granulocytes, immature 0.03 0.00 - 0.09 K/uL [facility] Blood 12/28/2024 1:27 PM EDT 12/28/2024 1:41 PM EDT Yancy Hutchinson MD LAB BLOOD BKR ORDERABLES Final Result Performing Organization Address City/[facility]/ZIP Co de Phone Number [address] [address] * Rheumatoid factor (12/28/2024 1:27 PM EDT) RHEUMATOID FACTOR <10.0 0.0 - 14.0 IU/ml [facility] Blood 12/28/2024 1:27 PM EDT 12/28/2024 1:41 PM EDT Yancy Hutchinson MD LAB BLOOD BKR ORDERABLES Final Result [address] [address] * Complement C3 (12/28/2024 1:27 PM EDT) C3 144 81 - 157 mg/dl [facility] Blood 12/28/2024 1:27 PM EDT 12/28/2024 1:42 PM EDT Yancy Hutchinson MD LAB BLOOD BKR ORDERABLES Final Result [address] [address] * Complement C4 (12/28/2024 1:27 PM EDT) C4 29 12 - 39 mg/dL [facility] Blood 12/28/2024 1:27 PM EDT 12/28/2024 1:42 PM EDT Yancy Hutchinson MD LAB BLOOD BKR ORDERABLES Final Result [address] [address] * (ABNORMAL) C-Reactive Protein (12/28/2024 1:27 PM EDT) [facility] C REACTIVE PROTEIN 12.4(H) 0.0 - 4.0 mg/L [facility] Blood 12/28/2024 1:27 PM EDT 12/28/2024 1:41 PM EDT Yancy Hutchinson MD LAB BLOOD BKR ORDERABLES Final Result Performing Organization Address City/[facility]/ZIP Co de Phone Number [address] [address] * Antinuclear antibody (GERARDO) (12/28/2024 1:27 PM EDT) GERARDO SCREEN ON HEP 2 Negative Negative [facility] Blood 12/28/2024 1:27 PM EDT 12/28/2024 1:41 PM EDT Yancy Hutchinson MD LAB BLOOD BKR ORDERABLES Final Result Performing Organization Address City/[facility]/ZIP Co de Phone Number [address] [address] * (ABNORMAL) Hemoglobin A1c (10/11/2020 5:42 AM EDT) HEMOGLOBIN A1C 7.3(H) 4.3 - 5.8 % [facility] Blood 10/11/2020 5:42 AM EDT 10/11/2020 6:20 AM EDT us Aileen Wright ASSISTANT STORE MANAGER LAB BLOOD BKR ORDERABLE S Final Result Performing Organization Address City/State/[facility] Co de Phone Number [address] [address] from Last 3 Months or Most Recently Relevant to Health Maintenance Insurance ACO [address] [place] [id number] [facility] * Guarantor: Linda Martinez Account Type Relation to Patient Date of Phone Billing Address Personal/Family Self [address] [place], [place] [facility] [address] [place], [place] [facility] * Guarantor: Linda Martinez Account Type Relation to Patient Date of Phone Billing Address Personal/Family Self [address] [place], [place] [facility] [place] Advance Directives For more information, please contact: [phone] (9AM - 5PM Martina/[facility], Monday-Monday) Documents on File Type Date Recorded Patient Director Risk Expl anation Healthcare Proxy 2020 2:16 PM * Full Code (Latest Code Status on File) Date Activated Date Inactivated Comments 10/10/2020 6:09 PM Question Answer Comments Code Status Confirmed With: Patient Care Teams Solar Sales Ambassador Relationship Specialty Start Date End Date Minerva Ferrara NP [address] [place] [address] [place] [address] [email or web address] PCP - General Nurse Practitioner 09/26/23 Additional Source Comments The information contained in this document represents components of the legal health record. It is not the complete legal health record.[facility]
--- OUTSIDE RECORDS SUMMARY | 2025-03-28 10:10 | XMS_ITS | Encounter Summary ---
Demographics Address [address] [place] [address] [address] [place] [address] Home Phone Mobile Phone Email Address Preferred Language Uzbek Marital Status /Civil Union Spiritism Affiliation Unknown Race White Ethnic Group Not or Lati no Author Organization [facility] Address [address] [facility] [address] [place] [address] Phone Care Team Providers Care Head Sugar Reprocess Operator Name Role Phone Thu Gallardo CASHIER RECEPTIONIST Primary Care Provider + Minerva Ferrara CASHIER RECEPTIONIST Primary Care Provider Encounter Details Date Type Department Care Team (Late Contact Info) Description 10/10/2020 Procedure Pass [facility], [address] [address] Social History Tobacco Use Types Packs/Day Years [...] Description 05/01/2025 10:00 AM EST Office Visit [facility] [address] [place] [address] Yancy Hutchinson MD [address] [facility], [address] [place] [address] Lindy Deutsch, PT [address] [place] [address] [email or web address] documented as of this encounter Visit Diagnoses Not on filedocumented in this encounter Care Teams Head Sugar Reprocess Operator Relationship Specialty Start Date End Date Thu Gallardo NP [address] [place] [address] PCP - General Nurse Practitioner 10/10/20 09/25/23 Minerva Ferrara NP [address] [place] [address] [place] [address] [email or web address] PCP - General Nurse Practitioner 09/26/23 documented as of this encounter Additional Source Comments The information contained in this document represents components of the legal health record. It is not the complete legal health record.[facility]
--- OUTSIDE RECORDS SUMMARY | 2025-03-28 10:10 | XMS_ITS | Encounter Summary ---
Demographics Address [address] [place] [address] [address] [place] [address] Home Phone Mobile Phone Email Address Preferred Language Wolof Marital Status /Civil Union Quaker Affiliation Unknown Race White Ethnic Group Not or Lati no Author Organization [facility] Address [address] [facility] [address] [place] [address] Phone Care Team Providers Care Analysis Manager Name Role Phone Thu Gallardo ARCHITECTURAL INSPECTOR Primary Care Provider + Minerva Ferrara ARCHITECTURAL INSPECTOR Primary Care Provider Encounter Details Date Type Department Care Team (Late st Contact Info) Description 10/10/2020 Procedure Pass [facility] [address] [place] [address] Social History Tobacco Use Types Packs/Day Years [...] Visit [facility] [address] [place], [place] [phone] Yancy Hutchinson MD [address] [facility], [address] [place] [address] Lindy Deutsch, PT [address] [place] [address] [email or web address] documented as of this encounter Visit Diagnoses Not on filedocumented in this encounter Care Teams Analysis Manager Relationship Specialty Start Date End Date Thu Gallardo NP [address] [place] [address] PCP - General Nurse Practitioner 10/10/20 09/25/23 Minerva Ferrara NP [address] [place] [address] [place] [address] [email or web address] PCP - General Nurse Practitioner 09/26/23 documented as of this encounter Additional Source Comments The information contained in this document represents components of the legal health record. It is not the complete legal health record.[facility]
--- OUTSIDE RECORDS SUMMARY | 2025-03-28 10:10 | XMS_ITS | Encounter Summary ---
Demographics Address [address] [place] [address] [address] [place] [address] Home Phone Mobile Phone Email Address Preferred Language Telugu Marital Status /Civil Union Christianity Affiliation Unknown Race White Ethnic Group Not or Lati no Author Organization [facility] Address [address] [facility] [address] [place] [address] Phone Care Team Providers Care Prescription Clerk Lenses Name Role Phone Thu Gallardo ANATOMY TEACHER Primary Care Provider + Minerva Ferrara ANATOMY TEACHER Primary Care Provider Encounter Details Date Type Department Care Team (Late Contact Info) Description 10/10/2020 Procedure Pass [facility], Ct Scan - [address] [address] Social History Tobacco Use Types Packs/Day Years [...] Description 05/01/2025 10:00 AM EST Office Visit [facility] [address] [place] [address] Yancy Hutchinson MD [address] [facility], [address] [place] [address] Lindy Deutsch, PT [address] [place] [address] [email or web address] documented as of this encounter Visit Diagnoses Not on filedocumented in this encounter Care Teams Prescription Clerk Lenses Relationship Specialty Start Date End Date Thu Gallardo NP [address] [place] [address] PCP - General Nurse Practitioner 10/10/20 09/25/23 Minerva Ferrara NP [address] [place] [address] [place] [address] [email or web address] PCP - General Nurse Practitioner 09/26/23 documented as of this encounter Additional Source Comments The information contained in this document represents components of the legal health record. It is not the complete legal health record.[facility]
== END 2025-03-28 10:12 | disposition home or self-care (01) ==
PROVIDERS: PCP Nurse Practitioner Family; Visit Provider Physician Assistant
DX: B34.9 Viral infection, unspecified (principal); Z72.89 Other problems related to lifestyle; J45.901 Unspecified asthma with (acute) exacerbation